=== PATIENT | female | born 1955 | race Caucasian/White ===

== ENCOUNTER 2018-12-09 18:11 | Emergency (ER) | payer BC, OTHER ==
[2018-12-09 18:23] VITALS: TEMP 98.1
[2018-12-09] MEDS ORDERED: KETOROLAC 60 MG/2 ML VIAL IM STA (19:33)
[2018-12-09] MEDS ORDERED: ORPHENADRINE 30 MG/ML 2 ML VIAL IM STA (19:33)
--- NOTE | 2018-12-09 19:37 | ED ---
General Adult HPI - General Chief complaint: Back Pain/Injury Stated complaint: R hand/arm pain Time Seen by Provider: 12/09/18 18:20 Source: patient, RN notes reviewed Mode of arrival: ambulatory Limitations: no limitations - History of Present Illness Initial comments: This is a 63-year-old female who presents emergency Department complaining of a pain in her right lower back as well as some arm pain after having been working. Patient states she does a lot of heavy lifting as well as repetitive work with her hands. Patient states her right forearm and arm are sore as well as in the trapezius muscle. Patient states movement makes it worse and resting makes it better. Patient states she has full range motion of all joints it just hurts to do so. Patient denies any blunt trauma or injury to the any of the specific areas. Patient states it's basically all the muscles from her trapezius muscle down into her wrist and back of her hand. Patient denies any swelling or redness. Patient states she's not moving her arm it doesn't hurt at all. Patient also complains of some right lower back pain and it hurts to palpate right above the iliac crest. Patient denies any injury to that area but she states she lifts heavy things all day long - Related Data Home Medications Medication Instructions Recorded Confirmed Citalopram Hydrobromide [CeleXA] 40 mg PO HS 05/17/17 12/09/18 traZODone HCL 200 mg PO HS 05/17/17 12/09/18 Atorvastatin [Lipitor] 20 mg PO HS 12/09/18 12/09/18 Fish Oil/Dha/Epa [Fish Oil 1,200 2 cap PO HS 12/09/18 12/09/18 mg Fish Oil] Meloxicam [Mobic] 15 mg PO HS 12/09/18 12/09/18 Previous Rx's Medication Instructions Recorded Cyclobenzaprine [Flexeril] 10 mg PO TID #20 tab 12/09/18 Ibuprofen [Motrin] 600 mg PO Q6HR PRN #20 tab 12/09/18 Allergies Allergy/AdvReac Type Severity Reaction Status Date / Time amoxicillin [From Augmentin] AdvReac Nausea & Verified 12/09/18 19:21 Vomiting clavulanic acid AdvReac Nausea & Verified 12/09/18 19:21 [From Augmentin] Vomiting Review of Systems ROS Statement: Those systems with pertinent positive or pertinent negative responses have been documented in the HPI. ROS Other: All systems not noted in ROS Statement are negative. Past Medical History Past Medical History: Hyperlipidemia History of Any Multi-Drug Resistant Organisms: None Reported Past Surgical History: No Surgical Hx Reported Past Psychological History: Depression Smoking Status: Current every day smoker Past Alcohol Use History: None Reported Past Drug Use History: None Reported General Exam - General Exam Comments Initial Comments: GENERAL Patient is well-developed and well-nourished. Patient is in mild distress. EYES Patient's pupils are equal and round. Extraocular motion is intact SKIN Unremarkable NEURO The patient is alert and oriented 3 PYSCH Patient has normal interpersonal interactions. MUSCULOSKELETAL Patient has tenderness in the posterior aspect of her hand as well as some slight tenderness on palpation of her forearm posteriorly and her trapezius muscle on the right. Patient also has full range of motion of all of her joints on the right side but it does hurt to move it she states. Patient also complains of some right lower back pain is just above the iliac crest and palpating that area does cause some pain there is no radiculopathy with the pain there is no spinous process tenderness in his been no blunt trauma according to the patient Limitations: no limitations Course Vital Signs 12/09/18 18:18 Temperature 98.1 F Pulse Rate 101 H Respiratory 18 Rate Blood Pressure 115/75 O2 Sat by Pulse 98 Oximetry Disposition Clinical Impression: Mechanical back pain, Wrist strain Disposition: HOME SELF-CARE Prescriptions: Cyclobenzaprine [Flexeril] 10 mg PO TID #20 tab Ibuprofen [Motrin] 600 mg PO Q6HR PRN #20 tab PRN Reason: For pain Is patient prescribed a controlled substance at d/c from ED?: No Referrals: Alaina Moreno MD [Primary Care Provider] - 1-2 days Time of Disposition: 19:36
[2018-12-09 20:06] VITALS: BP 117/83; PULSE 92; RESP 17
== END 2018-12-09 20:05 | disposition home or self-care (01) ==
LOC: EC 18:11
DX: S66.911A Strain of unspecified muscle, fascia and tendon at wrist and hand level, right hand, initial encounter (principal); M54.5 Low back pain; E78.5 Hyperlipidemia, unspecified; F32.9 Major depressive disorder, single episode, unspecified; F17.200 Nicotine dependence, unspecified, uncomplicated; Z79.899 Other long term (current) drug therapy; Z79.1 Long term (current) use of non-steroidal anti-inflammatories (NSAID); Z88.0 Allergy status to penicillin; Z88.1 Allergy status to other antibiotic agents; X58.XXXA Exposure to other specified factors, initial encounter
CPT/HCPCS: 99283; 96372 ×2; J2360; J1885

== ENCOUNTER → 2019-04-11 | Outpatient (CLI) | payer OTHER, BC | END | disposition home or self-care (01) | LOC: LABWHC1 11:44 | PROVIDERS: ATTEND Orthopaedic Surgery Orthopaedic Surgery of the Spine | DX: Z01.812 Encounter for preprocedural laboratory examination (principal) | CPT/HCPCS: 80323 ==

== ENCOUNTER → 2019-04-20 | Outpatient (CLI) | payer OTHER, BC ==
--- NOTE | 2019-04-20 10:26 | XR ---
EXAMINATION TYPE: XR chest 2V DATE OF EXAM: 04/20/2019 COMPARISON: Chest x-ray May 17, 2017. HISTORY: Presurgical study. TECHNIQUE: Frontal and lateral views of the chest are obtained. FINDINGS: There is no focal air space opacity, pleural effusion, or pneumothorax seen. The cardiac silhouette size is within normal limits. The osseous structures are intact. IMPRESSION: No acute cardiopulmonary process currently.
== END | disposition home or self-care (01) ==
LOC: LABPAT 09:39
PROVIDERS: ATTEND Internal Medicine
DX: Z01.812 Encounter for preprocedural laboratory examination (principal); M43.16 Spondylolisthesis, lumbar region; E78.2 Mixed hyperlipidemia
CPT/HCPCS: 36415; 71046; 86850; 86900; 86901; 87070

== ENCOUNTER → 2019-04-20 | Outpatient (CLI) | payer OTHER, BC ==
[2019-04-20 16:05] LABS: Chol/HDL Ratio 4.23; LDL Cholesterol,Calculated 103.4 mg/dL (0.0-131.0); VLDL Calculation 35.6 mg/dL (5.00-40.00)
== END | disposition home or self-care (01) ==
LOC: LABWHC1 10:34
DX: E78.2 Mixed hyperlipidemia (principal)
CPT/HCPCS: 36415; 80061; 84443

== ENCOUNTER 2019-04-25 13:57 | Inpatient (IN) | payer BC, OTHER ==
[~2019-04-25 13:57] MED LIST: BACITRACIN 50,000 UNIT, POLYMYXIN B 500,000 UNIT in SODIUM CHLORIDE 0.9% IRRIGATIO 1,00... IRRIGATION ONE
[2019-04-25] MEDS ORDERED: LACTATED RINGERS 1,000 ML IV ONE ×4 (15:13→17:35)
[2019-04-25] MEDS ORDERED: ONDANSETRON 4 MG/2 ML VIAL IVP ONE ×2 (15:34→19:52)
[2019-04-25] MEDS ORDERED: PROPOFOL 10 MG/ML 20 ML VIAL IV ONE (15:35)
[2019-04-25] MEDS ORDERED: NEOSTIGMINE 1 MG/ML 10 ML VIAL ONE (15:35)
[2019-04-25] MEDS ORDERED: ePHEDrine SULFATE/0.9% NACL/PF 50 MG/5 ML SYRINGE IV ONE (15:35)
[2019-04-25] MEDS ORDERED: LIDOCAINE 1% INJ 10MG/ML (20 ML MDV) ONE (15:35)
[2019-04-25] MEDS ORDERED: fentaNYL (PF) 50 MCG/ML 2 ML AMP ONE (15:35)
[2019-04-25] MEDS ORDERED: SUCCINYLCHOLINE CHLORIDE 100 MG/5 ML SYR IV ONE (15:35)
[2019-04-25] MEDS ORDERED: MIDAZOLAM 2 MG/2 ML VIAL ONE (15:35)
[2019-04-25] MEDS ORDERED: KETAMINE 10 MG/ML 20 ML VIAL ONE (15:35)
[2019-04-25] MEDS ORDERED: GLYCOPYRROLATE 0.2 MG/ML 2 ML VIAL ONE (15:35)
[2019-04-25] MEDS ORDERED: ROCURONIUM BROMIDE 10 MG/ML 10 ML VIAL IV ONE (15:35)
[2019-04-25] MEDS ORDERED: LIDOCAINE 1%-EPI 1:100,000 20 ML VIAL SQ ONE ×2 (16:28)
[2019-04-25] MEDS ORDERED: THROMBIN (BOVINE) 5,000 UNIT VIAL TOPICAL ONE (16:28)
[2019-04-25] MEDS ORDERED: BUPIVACAINE (PF) 0.5% 30 ML VIAL SQ ONE ×2 (16:30)
[2019-04-25] MEDS ORDERED: GELATIN SPONGE,ABSORB (SMALL) 1 EACH SPONGE TOPICAL ONE (16:31)
[2019-04-25] MEDS ORDERED: BENZOCAINE/MENTHOL LOZENG 1 EACH LOZENGE MUCOUS MEM PRN (18:52)
[2019-04-25] MEDS ORDERED: HYDROcodone/APAP 5-325MG 1 EACH TAB PO PRN (18:52)
[2019-04-25] MEDS ORDERED: ONDANSETRON 4 MG/2 ML VIAL IVP PRN (18:52)
[2019-04-25] MEDS ORDERED: MAGNESIUM HYDROXIDE 2,400 MG/10 ML CUP PO PRN (18:52)
--- NOTE | 2019-04-25 19:01 | P.OP ---
Date of Procedure: 04/25/19 Preoperative Diagnosis: Spondylolisthesis L4 5, spinal stenosis L4 5, degenerative disc disease, lower extremity radiculopathy, low back pain, facet arthrosis Postoperative Diagnosis: Same Anesthesia: GETA Pathology: none sent Condition: stable Disposition: PACU Description of Procedure: DESCRIPTION OF PROCEDURE(S): BRIEF OPERATIVE NOTE Preoperative Diagnosis: Spondylolisthesis L4 5, spinal stenosis L4 5, degenerative disc disease, lower extremity radiculopathy, low back pain, facet arthrosis Postoperative Diagnosis:Spondylolisthesis L4 5, spinal stenosis L4 5, degenerative disc disease, lower extremity radiculopathy, low back pain, facet arthrosis Procedure: Laminectomy and decompression L4 5 Minimally invasive Posterior lateral decompression and facet fusion L4 5 Minimally invasive Transforaminal lumbar interbody fusion for a 360 fusion L4 5 Discectomy for decompression L4 5 Placement of interbody graft L4 5 Local autogenous bone grafting Harvesting of bone marrow aspirate the of the pedicle of L4 on the left Use of Cell Saver Use of bone graft extenders Surgeon: Dr. Wynn Imcu Specialist: Jose G Medina is present throughout the entire the case persistence during positioning, dissection, exposure, visualization, and all crucial elements of the case as well as closure. Anesthesia: General anesthesia per Dr. Servin Estimated blood loss: Approximately 200 mL Complications: None apparent Components implanted: K2M minimally invasive [place] pedicle screw system with 4 screws measuring 6.5 x 50 mm and 2 rods one [place] interbody cage measuring 8 mm with 10 mL of bio4 bone graft as well as 30 mL of DBX bone fibers to supplement the local autogenous bone graft as well as the bone marrow aspirate Disposition: To recovery room in good stable condition. OPERATIVE INDICATIONS The patient has had long-standing issues in their lower back and lower extremities. She is found have a dynamic spondylolisthesis at L4 5 as well as foraminal stenosis with disc degeneration. These issues correlate very well with her low back and lower extremity symptoms in her lower extremity radiculopathy. She is having worsening pain despite aggressive conservative care and was not having any prolonged benefit despite aggressive conservative management. The patient has been through conservative treatment. She was able to stop smoking in order to proceed with the surgery and had testing which show she was no longer actively smoking. We discussed various treatment options including surgery, and the patient wishes to proceed with surgery We discussed the risk, patient's alternatives and benefits of surgery including but not limited to, risk of bleeding risk of infection, risk of need for further surgery, risk of decreased, loss of motion, muscle function, malunion nonunion, hardware failure, nerve damage, paralysis, heart attack, blindness and . OPERATIVE SUMMARY After discussing all the risks, patient alternatives and benefits at length, the patient elected to proceed with surgical intervention, signed informed consent, and presented for their procedure. The patient was seen and examined in the preoperative holding area and the surgical site was marked. The patient was given antibiotics and brought to the operating room. The patient was sedated and intubated by anesthesia in standard fashion. The patient was positioned on to the operating room table in a prone position on the appropriate frame which was well-padded and well molded. We were careful to pad any bony prominences and pressure points. We were careful to maintain the patient's cervical spine and good neutral alignment and position throughout. The patient was prepped and draped in a normal standard fashion. An appropriate timeout and keystone protocol performed. We were able to proceed with the surgery. The local wound area was infiltrated with local anesthetic at L4 and L5. I was able utilize C-arm guidance to establish appropriate position over the pedicles bilaterally at the appropriate levels at L4 5. With the appropriate levels confirmed was able to make small stab incisions over the appropriate pedicle sites bilaterally. Utilizing C-arm in his house able to establish a Jamshidi needle over the lateral aspect of the pedicle and advanced the trocar into the pedicle being careful not to breech superiorly inferiorly medially or laterally. Position was confirmed regularly with AP and lateral images on C- arm. I was able to establish the trocar into the pedicle appropriately into the posterior aspect of the vertebral body bilaterally at the appropriate levels of L4 and L5. This was done at each of the pedicle positions and each of the vertebrae. At L3 4 on the left I was able to withdraw approximately 25 mL of bone marrow aspirate via the trocar for later use in supplement of the local autogenous and allograft bone. I was able place the guidewire into the trocar and into the vertebral body appropriately under C-arm guidance. Dissection was taken down over the wire to the appropriate starting position for the screw placed. The appropriate length screw was chosen, threaded over the guidewire and screwed appropriately into the pedicle and vertebral body under C-arm guidance in excellent alignment and position with good bony purchase. This is done at each of the screw sites at the appropriate levels at L4 and L5. With the screws intact I extended the incision to connect the screw hole sites on the most symptomatic side on the left. I dissected down to establish access over the pars and lamina to the base of the spinous process. I was able to expose the facet joint at L4 5. The capsule the facet was taken down and showed some severe facet arthrosis at the joint. I was able to use a combination of curettes and Kerrison rongeurs and a high-speed drill to take down the facet joint and do a facetectomy. Partial laminectomy was also performed. I was able get excellent foraminal decompression and central decompression with undermining across midline to perform a laminectomy centrally and contralaterally. As able get good central decompression. The ligamentum flavum was taken down to further decompress centrally and at bilateral neural foramen. I was able to expose the disc space and visualize the traversing nerve root. Note was made of some disc protrusion at the level causing further compression of the nerve root. I was able to establish a annulotomy at the appropriate level protecting soft tissue and neural structures. Note was made of some significant disc desiccation at the disc. I performed a complete discectomy with accommodation of curettes and rasps and scrapers. I was able get good endplate preparation at the disc space. I sized for the appropriate size interbody spacer protecting the soft tissue and neural structures. The wound was copiously irrigated and suctioned dry. There is no evidence of any dural tear or leak. I was able to pack the disc space with local autogenous bone graft as well as a small amount of bone graft which was also placed into the interbody cage itself. Protecting the soft tissue structures and neural structures I was able place the interbody cage in good alignment and good position with good fit and fill at the interbody space of L4 5. I was also able to achieve some reduction of the listhesis. This was confirmed with C-arm guidance. Good hemostasis maintained. There is no evidence of any dural tear or leak. The wound was irrigated and suctioned dry. With the hardware intact, intraoperative C-arm imaging was again taken which showed good alignment and position of the hardware at the appropriate levels of L4 and L5. We were then able to measure, contour and place the rods and appropriate hardware bilaterally. I was able to place capcrews, tighten them down, and torque them with the torque screwdriver appropriately and this gave further reduction of the listhesis.. With this intact I was able to place the local autogenous bone graft with additional bone graft enhancer as necessary into the posterior lateral gutters over the decorticated transverse processes. The remainder of the bone graft was placed over the facet joint on the cont ralateral side after taking down the facet joint capsule. With the bone graft intact, a stable construct, and good decompression at the appropriate levels, we were able to proceed with closure. Good hemostasis was maintained. There is no evidence of dural tear or leak. The fascia was closed for a watertight closure. he subcuticular tissue was closed with absorbable suture. The wound was cleaned and dried and dressed with the appropriate dressing. The drapes were broken down. The patient was gently rolled back onto their hospital bed being careful to maintain their cervical spine and good neutral alignment and position. They were woken up by anesthesia, extubated, and brought to the recovery room in good stable condition. The patient will be admitted to the hospital for appropriate postoperative care, medical management and monitoring. We will continue to follow them closely about the postoperative course.
[2019-04-25] MEDS ORDERED: HYDROmorphone 1 MG/ML 1 ML SYRINGE IVP ONE ×3 (19:15→19:45)
[2019-04-25] MEDS ORDERED: LABETALOL SYRINGE 5 MG/ML IVP ONE (19:33)
[2019-04-25] MEDS: SODIUM CHLORIDE 0.9% 1,000 ML IV SCH (21:20)
[2019-04-25] MEDS: HYDROmorphone 0.5 MG/0.5 ML SYRINGE IVP PRN (21:21)
[2019-04-25] MEDS ORDERED: SODIUM CHLORIDE 0.9% 1,000 ML IV ONE ×2 (22:46→22:47)
[2019-04-25] MEDS ORDERED: FUROSEMIDE 10 MG/ML 2 ML VIAL IV PRN (22:47)
[2019-04-25] MEDS: CITALOPRAM HYDROBROMIDE 20 MG TAB PO SCH (22:53)
[2019-04-25] MEDS: ATORVASTATIN 20 MG TAB PO SCH (22:54)
[2019-04-25] MEDS ORDERED: HYDROcodone/APAP 5-325MG 1 EACH TAB ONE (23:51)
[2019-04-26] MEDS ORDERED: HYDROcodone/APAP 5-325MG 1 EACH TAB ONE (00:20)
[2019-04-26] MEDS ORDERED: HYDROmorphone 0.5 MG/0.5 ML SYRINGE ONE (00:20)
--- NOTE | 2019-04-26 05:01 | XR ---
EXAMINATION TYPE: XR lumbar spine 2 or 3V, FL guidance operating room DATE OF EXAM: 04/25/2019 COMPARISON: NONE HISTORY: 63-year-old female minimally invasive lumbar spine intervention FINDINGS: Intraprocedural fluoroscopy during lower lumbar posterior interbody fusion hardware placement. FLUOROSCOPY Fluoroscopy time of 1 minute 24 seconds was used during the lumbar surgery. 6 image/s document/s the procedure. IMPRESSION: Intraoperative fluoroscopy as above.
[2019-04-26] MEDS: HYDROmorphone 0.5 MG/0.5 ML SYRINGE IVP PRN (06:30)
[2019-04-26] MEDS: SENNOSIDES-DOCUSATE SODIUM 1 EACH TAB PO SCH (07:58)
[2019-04-26] MEDS: HYDROcodone/APAP 5-325MG 1 EACH TAB PO PRN ×4 (07:59→22:18)
[2019-04-26] MEDS: SODIUM CHLORIDE 0.9% 1,000 ML IV SCH (08:01)
--- NOTE | 2019-04-26 08:55 | P.PN ---
Progress Note - Text Progress Note Date: 04/26/19 Orthopedic Spine: History of present illness: Patient is a pleasant 63-year-old female who is seen and examined at the bedside following posterior lateral decompression and fusion performed yesterday. Patient states they are doing okay postsurgically but is experiencing significant pain postoperatively. Her pain is most significant at her lumbar spine with any movement of her spine. She also is experiencing increased numbness down the right lower extremity. Her Licona catheter remains intact. She was able to transfer to a bedside chair yesterday. She is eating without difficulty. She continues to require regular dosing of IV and oral narcotic pain medication. She did receive an IV bolus of fluid yesterday due to drop in blood pressure with a reading of 82/52. Her blood pressures improved this morning 210/62. Currently does not complain of nausea, vomiting, fever, or chills. Physical Exam Lumbar Fusion: Status post surgical day number 1 Patient is awake, alert, and oriented 3 Vital signs stable Good chest excursion with deep inspiration and expiration Abdomen soft nontender Dorsiflexion, plantarflexion, and extensor hallucis longus positive sustained bilaterally No signs or symptoms of DVT; no calf pain; pneumatic cuffs intact bilateral lower extremities Dressing is clean, dry, and intact; no erythema, purulence, or signs of infection Hemovac drain well secure Neurovascularly intact bilaterally lower extremities Assessment: L4-5 minimally invasive posterior lateral decompression and fusion with transforaminal lumbar interbody fusion Low back pain Right lower extremity radiculopathy Episode of hypotension resolved with IV fluid bolus L4-5 spondylolisthesis L4-5 degenerative disc disease Lumbar facet arthrosis Plan: 1. Ambulate as tolerated; work with Physical Therapy to increase mobilization 2. Continue pain control with IV and oral medications; we discussed patient may continue to receive IV and oral narcotic pain medications for pain control as long as her blood pressure remains stable and she does not become hypotensive 3. Dressing to remain intact with silver and Tegaderm; patient may shower with dressings intact 4. Medical management can continue to manage patient for patient's other medical issues 5. We will continue to follow the patient closely 6. Patient can follow-up with Jose G Pate PA-C or Dr. Juan Wynn at [facility] in 2-3 weeks following discharge
[2019-04-26 10:28] LABS: Basophils % (A) 0 %; Eosinophils # (A) 0.1 k/uL (0-0.7); Eosinophils % (A) 1 %; HGB 10.6 gm/dL (11.4-16.0); Lymphocytes # (A) 1.1 k/uL (1.0-4.8); Lymphocytes % (A) 12 %; MCH 30.7 pg (25.0-35.0); MCHC 33.1 g/dL (31.0-37.0); MCV 92.6 fL (80.0-100.0); Mean Platelet Volume 5.7; Monocytes # (A) 0.7 k/uL (0-1.0); Monocytes % (A) 7 %; Neutrophils # (A) 6.8 k/uL (1.3-7.7); Neutrophils % (A) 78 %; Platelet Count 306 k/uL (150-450); RBC 3.46 m/uL (3.80-5.40); RDW 12.8 % (11.5-15.5); WBC 8.8 k/uL (3.8-10.6)
[2019-04-26] MEDS: HYDROmorphone 1 MG/ML 1 ML SYRINGE IVP PRN (10:37)
[2019-04-26 10:40] LABS: Calcium 8.4 mg/dL (8.4-10.2); Potassium 4.3 mmol/L (3.5-5.1)
[2019-04-26] MEDS: MORPHINE SULFATE 2 MG/ML SYRINGE IVP PRN ×2 (12:54→16:45)
--- NOTE | 2019-04-26 13:26 | P.CONS ---
History of Present Illness - Reason for Consult Consult date: 04/26/19 Medical management - History of Present Illness This is a 63-year-old female patient of Cb Marshall NP with past medical history of hyperlipidemia, depression, prior tobacco use and dependence. Patient was brought into the hospital under the care of Dr. Wynn status post posterior lateral decompression and fusion. Patient is seen postop day #1. Patient states that she did not sleep all night due to pain in her back. She is complaining of pain in her lumbar spine and down her right leg as well as numbness to her right leg. She states she has been up to the chair last night and again today. She denies having any chest pain. She states she has had some dizziness with Dilaudid. She has not had a bowel movement and last one was 2 days ago. The patient did have some hypotension for which she was given 1 L of IV fluids. Blood pressure is improved today. She denies nausea, vomiting, fever, or chills. We will try starting morphine to be used in place of Dilaudid to see if this helps with her dizziness. Review of Systems Constitutional: Reports weakness, Denies anorexia, Denies chills, Denies chronic headaches, Denies fatigue, Denies fever, Denies lethargy, Denies malaise, Denies poor appetite Eyes: denies blurred vision, denies pain Ears, nose, mouth and throat: Denies dysphagia, Denies headache, Denies nasal congestion, Denies nasal discharge, Denies sore throat, Denies vertigo Cardiovascular: Denies chest pain, Denies decreased exercise tolerance, Denies dyspnea on exertion, Denies edema, Denies leg edema, Denies palpitations, Denies shortness of breath, Denies syncope Respiratory: Denies cough, Denies cough with sputum, Denies dyspnea, Denies he moptysis, Denies home oxygen, Denies respiratory infections, Denies wheezing Gastrointestinal: Denies abdominal pain, Denies constipation, Denies diarrhea, Denies loss of appetite, Denies nausea, Denies vomiting Genitourinary: Denies dysuria, Denies hematuria, Denies urgency, Denies urinary frequency Musculoskeletal: Reports gait dysfunction, Reports leg numbness/tingling, Reports low back pain, Denies frequent falls, Denies muscle weakness, Denies myalgias Integumentary: Denies pruritus, Denies rash Neurological: Reports gait dysfunction, Denies numbness, Denies weakness Psychiatric: Denies anxiety, Denies depression Endocrine: Denies fatigue, Denies weight change Past Medical History Past Medical History: Hyperlipidemia History of Any Multi-Drug Resistant Organisms: None Reported Past Surgical History: No Surgical Hx Reported Additional Past Surgical History / Comment(s): L4-L5 decompression this admission Past Anesthesia/Blood Transfusion Reactions: No Reported Reaction Past Psychological History: Depression Smoking Status: Former smoker Past Alcohol Use History: None Reported Additional Past Alcohol Use History / Comment(s): quit smoking a month ago, was a 1 pack per day smoker. Patient smoked for 45 years. No illicit drug use, no alcohol use. Past Drug Use History: None Reported - Past Family History Mother Family Medical History: Myocardial Infarction ([place]) Additional Family Medical History / Comment(s): Mother at age 78 with history of pneumonia, 3 vessel CABG. Father Additional Family Medical History / Comment(s): Father at age 83. Vital history is unknown as he never went to the doctor. Brother(s) Additional Family Medical History / Comment(s): Patient has 2 brothers and one has known spinal stenosis. Patient has 2 sisters and one has Crohn's and one has Edvin-Vieira. Patient has one daughter with Crohn's disease. Medications and Allergies Home Medications Medication Instructions Recorded Confirmed Type Citalopram Hydrobromide [CeleXA] 60 mg PO HS 05/17/17 04/25/19 History traZODone HCL 200 mg PO HS 05/17/17 04/25/19 History Atorvastatin [Lipitor] 20 mg PO HS 12/09/18 04/25/19 History Fish Oil/Dha/Epa [Fish Oil 1,200 2 cap PO HS 12/09/18 04/25/19 History mg Fish Oil] Ibuprofen [Motrin] 600 mg PO Q6HR PRN #20 tab 12/09/18 04/25/19 Rx Allergies Allergy/AdvReac Type Severity Reaction Status Date / Time amoxicillin [From Augmentin] AdvReac Nausea & Verified 12/09/18 19:21 Vomiting clavulanic acid AdvReac Nausea & Verified 12/09/18 19:21 [From Augmentin] Vomiting Physical Exam Vitals: Vital Signs Temp Pulse Pulse Pulse Resp BP BP 04/26/19 06:25 91 110/62 04/26/19 05:50 98.3 F 88 16 99/54 04/25/19 22:40 82/52 04/25/19 22:26 101 H 129/68 04/25/19 22:10 88 92/56 04/25/19 21:47 100 117/72 04/25/19 21:42 96/62 04/25/19 21:32 96 117/62 04/25/19 21:17 94 119/72 04/25/19 21:16 04/25/19 20:34 97.8 F 16 119/72 04/25/19 20:33 100 14 117/62 04/25/19 20:18 97 14 119/72 04/25/19 19:59 88 18 138/68 04/25/19 19:35 89 16 141/69 04/25/19 19:20 111 H 16 170/77 04/25/19 19:07 97.7 F 124 H 18 167/87 04/25/19 14:35 98.6 F 90 16 137/88 Pulse Ox 04/26/19 06:25 94 L 04/26/19 05:50 93 L 04/25/19 22:40 04/25/19 22:26 90 L 04/25/19 22:10 92 L 04/25/19 21:47 90 L 04/25/19 21:42 94 L 04/25/19 21:32 94 L 04/25/19 21:17 96 04/25/19 21:16 96 04/25/19 20:34 99 04/25/19 20:33 92 L 04/25/19 20:18 90 L 04/25/19 19:59 97 04/25/19 19:35 98 04/25/19 19:20 96 04/25/19 19:07 95 04/25/19 14:35 95 Intake and Output 04/25/19 04/26/19 04/26/19 22:59 06:59 14:59 Intake Total 4101 50 Output Total 790 Balance 3311 50 Intake: IV 2501 Intake, IV Titration 1600 50 Amount Sodium Chloride 0.9% 1, 600 000 ml @ 75 mls/hr IV . [id number] [facility] Rx#:[id number] Sodium Chloride 0.9% 1, 1000 000 ml @ 999 mls/hr IV . Q1H1M [facility] Rx#:[id number] ceFAZolin 2 gm In Sodium 50 Chloride 0.9% 50 ml @ 100 mls/hr IVPB Q8HR [facility] Rx# :[id number] Output: Urine 590 Estimated Blood Loss 200 Other: Voiding Method Indwelling Catheter Weight 78.018 kg Gen: This is a 63-year-old female. Patient is sitting up and chair and appears to be somewhat uncomfortable. She has increased pain with minimal movement. HEENT: Head is atraumatic, normocephalic. Pupils equal, round. Sclerae is anicteric. NECK: Supple. No JVD. No lymphadenopathy. No thyromegaly. LUNGS: Clear to auscultation. No wheezes or rhonchi. No intercostal retractions. HEART: Regular rate and rhythm. No murmur. ABDOMEN: Soft. Bowel sounds are present. No masses. No tenderness. EXTREMITIES: No pedal edema. No calf tenderness. NEUROLOGICAL: Patient is awake, alert and oriented x3. Cranial nerves 2 through 12 are grossly intact. Results CBC & Chem 7: 04/26/19 09:29 04/26/19 09:29 Labs: Abnormal Lab Results - Last 24 Hours (Table) 04/26/19 04/26/19 Range/Units 09:29 09:29 RBC 3.46 L (3.80-5.40) m/uL Hgb 10.6 L (11.4-16.0) gm/dL Hct 32.0 L (34.0-46.0) % Glucose 71 L (74-99) mg/dL Microbiology - Last 24 Hours (Table) 04/20/19 09:55 Nasal Screen MRSA/MSSA - Final Nasal Swab Assessment and Plan Plan: 1. Spinal stenosis status post posterior lateral decompression and fusion. Postop day #1. Continue current pain management and we will add in morphine to see if this will help with pain and not cause dizziness which she is experiencing with Dilaudid. Continue incentive spirometry to reduce incidence of atelectasis and hospital-acquired pneumonia. Continue PT and OT. DVT prophylaxis per orthopedics. 2. Postoperative hypotension, expected from surgery. Patient is status post 1 L of IV fluid bolus. 3. Tobacco use and dependence. Patient quit smoking 36 days ago on Chantix program. 4. Depression, recurrent. Continue citalopram 60 mg at bedtime, trazodone 200 mg at bedtime. 5. Hyperlipidemia. Continue Lipitor 20 mg at bedtime. 6. GI prophylaxis. Pepcid. Discharge plan: home Impression and plan of care have been directed as dictated by the signing physician. An Mendez nurse practitioner acting as scribe for signing physician.
[2019-04-26] MEDS ORDERED: ACETAMINOPHEN TAB 325 MG TAB PO PRN (16:44)
[2019-04-26] MEDS: ATORVASTATIN 20 MG TAB PO SCH (21:11)
[2019-04-26] MEDS: CITALOPRAM HYDROBROMIDE 20 MG TAB PO SCH (21:11)
[2019-04-27] MEDS: traZODone HCL 100 MG TAB PO SCH (00:24)
[2019-04-27] MEDS ORDERED: DIAZEPAM 5 MG TAB PO STA (01:16)
[2019-04-27] MEDS: SODIUM CHLORIDE 0.9% 1,000 ML IV SCH ×2 (01:51→13:23)
[2019-04-27] MEDS: HYDROcodone/APAP 5-325MG 1 EACH TAB PO PRN ×5 (05:33→23:26)
[2019-04-27] MEDS: SENNOSIDES-DOCUSATE SODIUM 1 EACH TAB PO SCH (09:10)
[2019-04-27] MEDS: FAMOTIDINE 20 MG TAB PO SCH (09:10)
[2019-04-27] MEDS: HYDROmorphone 1 MG/ML 1 ML SYRINGE IVP PRN ×2 (12:55→23:51)
[2019-04-27] MEDS: BACLOFEN 10 MG TAB PO PRN ×2 (13:23→21:31)
--- NOTE | 2019-04-27 14:14 | P.PN ---
Subjective Progress Note Date: 04/27/19 This is a 63-year-old female patient of Cb Marshall NP with past medical history of hyperlipidemia, depression, prior tobacco use and dependence. Patient was brought into the hospital under the care of Dr. Wynn status post posterior lateral decompression and fusion. Patient is seen postop day #1. Jerome ferrari states that she did not sleep all night due to pain in her back. She is complaining of pain in her lumbar spine and down her right leg as well as numbness to her right leg. She states she has been up to the chair last night and again today. She denies having any chest pain. She states she has had some dizziness with Dilaudid. She has not had a bowel movement and last one was 2 days ago. The patient did have some hypotension for which she was given 1 L of IV fluids. Blood pressure is improved today. She denies nausea, vomiting, fever, or chills. We will try starting morphine to be used in place of Dilaudid to see if this helps with her dizziness. 04/27: Patient is sleeping this morning and pulse ox was checked and it was down to 80. Patient denies any history of sleep apnea but has not been tested. Suggested to patient that she does have a sleep study as an outpatient. We'll plan to discontinue IV fluids and Licona catheter if patient does well with physical therapy this afternoon. She is complaining of back spasms and she did receive 1 dose of Valium last evening that seemed to help. We will add and baclofen 5 mg 3 times daily as needed to help. Discharge plan is home. Review of Systems Constitutional: Reports weakness, Denies anorexia, Denies chills, Denies chronic headaches, Denies fatigue, Denies fever, Denies lethargy, Denies malaise, Denies poor appetite Eyes: denies blurred vision, denies pain Ears, nose, mouth and throat: Denies dysphagia, Denies headache, Denies nasal congestion, Denies nasal discharge, Denies sore throat, Denies vertigo Cardiovascular: Denies chest pain, Denies decreased exercise tolerance, Denies dyspnea on exertion, Denies edema, Denies leg edema, Denies palpitations, Denies shortness of breath, Denies syncope Respiratory: Denies cough, Denies cough with sputum, Denies dyspnea, Denies hemoptysis, Denies home oxygen, Denies respiratory infections, Denies wheezing Gastrointestinal: Denies abdominal pain, Denies constipation, Denies diarrhea, Denies loss of appetite, Denies nausea, Denies vomiting Genitourinary: Denies dysuria, Denies hematuria, Denies urgency, Denies urinary frequency Musculoskeletal: Reports gait dysfunction, Reports leg numbness/tingling, Reports low back pain, Denies frequent falls, Denies muscle weakness, Denies myalgias, reports muscle spasms Integumentary: Denies pruritus, Denies rash Neurological: Reports gait dysfunction, Denies numbness, Denies weakness Psychiatric: Denies anxiety, Denies depression Endocrine: Denies fatigue, Denies weight change Objective - Vital Signs Vital signs: Vital Signs Temp 98.1 F 04/27/19 11:18 Pulse 83 04/27/19 11:18 Resp 15 04/27/19 11:18 BP 99/54 04/27/19 11:18 Pulse Ox 94 L 04/27/19 11:18 Intake & Output 04/26/19 04/27/19 04/27/19 18:59 06:59 18:59 Intake Total 700 1180 Output Total 4000 Balance 700 -2820 Intake: Intake, IV Titration 700 Amount Sodium Chloride 0.9% 1, 650 000 ml @ 75 mls/hr IV . [id number] [facility] Rx#:[id number] ceFAZolin 2 gm In Sodium 50 Chloride 0.9% 50 ml @ 100 mls/hr IVPB Q8HR [facility] Rx# :[id number] Oral 1180 Output: Urine 4000 Uretheral (Licona) 1300 Other: Voiding Method Indwelling Catheter Indwelling Catheter Indwelling Catheter - Exam Gen: This is a 63-year-old female. Patient is sitting up and chair and appears to be somewhat uncomfortable. HEENT: Head is atraumatic, normocephalic. Pupils equal, round. Sclerae is anicteric. NECK: Supple. No JVD. No lymphadenopathy. No thyromegaly. LUNGS: Clear to auscultation. No wheezes or rhonchi. No intercostal retractions. HEART: Regular rate and rhythm. No murmur. ABDOMEN: Soft. Bowel sounds are present. No masses. No tenderness. EXTREMITIES: No pedal edema. No calf tenderness. NEUROLOGICAL: Patient is awake, alert and oriented x3. Cranial nerves 2 through 12 are grossly intact. - Labs CBC & Chem 7: 04/26/19 09:29 04/26/19 09:29 Assessment and Plan Plan: 1. Spinal stenosis status post posterior lateral decompression and fusion. Postop day #2. Continue current pain management and we will add in morphine to see if this will help with pain and not cause dizziness which she is experiencing with Dilaudid. Continue incentive spirometry to reduce incidence of atelectasis and hospital-acquired pneumonia. Continue PT and OT. DVT prophylaxis per orthopedics. Baclofen added for back spasms. 2. Postoperative hypotension, expected from surgery. Patient is status post 1 L of IV fluid bolus. 3. Tobacco use and dependence. Patient quit smoking 36 days ago on Chantix program. 4. Depression, recurrent. Continue citalopram 60 mg at bedtime, trazodone 200 mg at bedtime. 5. Hyperlipidemia. Continue Lipitor 20 mg at bedtime. 6. GI prophylaxis. Pepcid. Discharge plan: home Impression and plan of care have been directed as dictated by the signing physician. An Mendez nurse practitioner acting as scribe for signing physician.
--- NOTE | 2019-04-27 14:46 | P.PN ---
Progress Note - Text Progress Note Date: 04/27/19 Postoperative day #2 Patient is seen and examined today at bedside. The patient has some pain around the surgical site as expected. Pain is being controlled with medication. Overnight patient had significant discomfort and spasm but it is relieving significantly today. She says she is passing gas appropriately. She has been able to get up and walk around her room with a walker with very short distances. She has been taking some IV medications earlier today but has been able to convert primarily to orals at this point. She is tolerating her diet appropriately. Physical Exam Afebrile with stable vital signs Abdomen is soft nontender. Chest has good excursion deep and space expiration The incision site is clean dry and intact. No erythema there is no purulence. Extremities have not had neurologic change from prior to surgery. She has sustained resection plantarflexion and EHL Calves and thighs were soft nontender without evidence of DVT. Her Licona catheter still intact Assessment/Plan Postoperative day #2 status post minimally invasive decompression and fusion for her spinal listhesis with spinal stenosis Patient is progressing as expected from the surgery. She had some debility with spasms last night but is improving. We will discontinue her Licona catheter today. We will continue to increase the patient's mobilization with therapy. She has been making better progress today and is more mobile and her pain is well controlled. It is likely that she'll be able to be discharged home tomorrow as long as her pain was controlled appropriately with oral medications and she is voiding freely. We will continue pain control with oral or IV medications. We'll continue to follow patient closely.
[2019-04-27] MEDS: CITALOPRAM HYDROBROMIDE 20 MG TAB PO SCH (21:31)
[2019-04-27] MEDS: ATORVASTATIN 20 MG TAB PO SCH (21:31)
[2019-04-28] MEDS: traZODone HCL 100 MG TAB PO SCH ×2 (03:55→20:49)
[2019-04-28] MEDS: SODIUM CHLORIDE 0.9% 1,000 ML IV SCH ×2 (03:56→14:35)
[2019-04-28] MEDS: HYDROcodone/APAP 5-325MG 1 EACH TAB PO PRN ×5 (04:14→20:49)
[2019-04-28] MEDS: BACLOFEN 10 MG TAB PO PRN ×2 (05:24→15:22)
[2019-04-28] MEDS: SENNOSIDES-DOCUSATE SODIUM 1 EACH TAB PO SCH (08:44)
[2019-04-28] MEDS: FAMOTIDINE 20 MG TAB PO SCH (08:44)
--- NOTE | 2019-04-28 10:50 | P.PN ---
Subjective Progress Note Date: 04/28/19 Principal diagnosis: Status post minimally invasive PLDF L4-5 and TLIF L4-5 This is a 63 year-old female post minimally invasive PLDF L4-5 and TLIF L4-5. This is post-op day 3. The patient was evaluated at the bedside today. The patient denies nausea, vomiting, abdominal pain, shortness of breath, and chest pain this morning. She states her pain is controlled at this time. The patient has been up with physical therapy and ambulating in the hallway. Objective - Vital Signs Vital signs: Vital Signs Temp 99.1 F 04/28/19 05:00 Pulse 83 04/28/19 05:00 Resp 16 04/28/19 05:00 BP 105/64 04/28/19 05:00 Pulse Ox 94 L 04/28/19 05:00 Intake & Output 04/27/19 04/28/19 04/28/19 18:59 06:59 18:59 Intake Total 1470 Output Total 500 Balance -500 1470 Intake: Oral 1470 Output: Urine 500 Uretheral (Licona) 500 Other: Voiding Method Toilet Toilet # Voids 2 - Exam The patient is a 63-year-old female who is in no acute distress. She is alert and oriented 3. Abdomen is soft and nontender. Chest has good excursion with deep inspiration. Incision site is clean dry and intact. No erythema or purulent drainage. Extremities has not had neurological change from prior to surgery. She has sustained dorsiflexion and plantar flexion and EHL function. She has good foot and ankle motion. Bilateral calves are soft and nontender. Neurological and circulatory status is intact. - Labs CBC & Chem 7: 04/26/19 09:29 04/26/19 09:29 Assessment and Plan (1) Radiculopathy Current Visit: Yes Status: Acute Code(s): M54.10 - RADICULOPATHY, SITE UNSPECIFIED SNOMED Code(s): 56917466 (2) Spinal stenosis Current Visit: Yes Status: Acute Code(s): M48.00 - SPINAL STENOSIS, SITE UNSPECIFIED SNOMED Code(s): 95768822 Plan: 1. Continue pain control 2. SCDs for DVT prophylaxis 3. Continue physical therapy and ambulation 4. Anticipate discharge home either later today or tomorrow.
--- NOTE | 2019-04-28 11:16 | P.PN ---
Subjective Progress Note Date: 04/28/19 This is a 63-year-old female patient of Cb Marshall NP with past medical history of hyperlipidemia, depression, prior tobacco use and dependence. Patient was brought into the hospital under the care of Dr. Wynn status post posterior lateral decompression and fusion. Patient is seen postop day #1. Cuca burch states that she did not sleep all night due to pain in her back. She is complaining of pain in her lumbar spine and down her right leg as well as numbness to her right leg. She states she has been up to the chair last night and again today. She denies having any chest pain. She states she has had some dizziness with Dilaudid. She has not had a bowel movement and last one was 2 days ago. The patient did have some hypotension for which she was given 1 L of IV fluids. Blood pressure is improved today. She denies nausea, vomiting, fever, or chills. We will try starting morphine to be used in place of Dilaudid to see if this helps with her dizziness. 04/27: Patient is sleeping this morning and pulse ox was checked and it was down to 80. Patient denies any history of sleep apnea but has not been tested. Suggested to patient that she does have a sleep study as an outpatient. We'll plan to discontinue IV fluids and Licona catheter if patient does well with physical therapy this afternoon. She is complaining of back spasms and she did receive 1 dose of Valium last evening that seemed to help. We will add and baclofen 5 mg 3 times daily as needed to help. Discharge plan is home. 04/28: Patient is sitting up in bed without any complaints. Patient is concerned about going home and being able to manage her activities of daily living specifically using the bathroom. Patient has not had a bowel movement since surgery. She states that she is having some gas and has been ambulatory. Patient states that her pain has been manageable. Back spasms have improved. Patient states that the baclofen has significantly helped. Review of Systems Constitutional: Reports weakness, Denies anorexia, Denies chills, Denies chronic headaches, Denies fatigue, Denies fever, Denies lethargy, Denies malaise, Denies poor appetite Eyes: denies blurred vision, denies pain Ears, nose, mouth and throat: Denies dysphagia, Denies headache, Denies nasal congestion, Denies nasal discharge, Denies sore throat, Denies vertigo Cardiovascular: Denies chest pain, Denies decreased exercise tolerance, Denies dyspnea on exertion, Denies edema, Denies leg edema, Denies palpitations, Denies shortness of breath, Denies syncope Respiratory: Denies cough, Denies cough with sputum, Denies dyspnea, Denies hemoptysis, Denies home oxygen, Denies respiratory infections, Denies wheezing Gastrointestinal: Denies abdominal pain, Denies constipation, Denies diarrhea, Denies loss of appetite, Denies nausea, Denies vomiting Genitourinary: Denies dysuria, Denies hematuria, Denies urgency, Denies urinary frequency Musculoskeletal: Reports gait dysfunction, Reports leg numbness/tingling, Reports low back pain, Denies frequent falls, Denies muscle weakness, Denies myalgias, reports muscle spasms Integumentary: Denies pruritus, Denies rash Neurological: Reports gait dysfunction, Denies numbness, Denies weakness Psychiatric: Denies anxiety, Denies depression Endocrine: Denies fatigue, Denies weight change Objective - Vital Signs Vital signs: Vital Signs Temp 99.1 F 04/28/19 05:00 Pulse 83 04/28/19 05:00 Resp 16 04/28/19 05:00 BP 105/64 04/28/19 05:00 Pulse Ox 94 L 04/28/19 05:00 Intake & Output 04/27/19 04/28/19 04/28/19 18:59 06:59 18:59 Intake Total 1470 Output Total 500 Balance -500 1470 Intake: Oral 1470 Output: Urine 500 Uretheral (Licona) 500 Other: Voiding Method Toilet Toilet # Voids 2 - Exam Gen: This is a 63-year-old female. Patient is sitting up in bed and appears comfortable, no acute distress HEENT: Head is atraumatic, normocephalic. Pupils equal, round. Sclerae is anic teric. NECK: Supple. No JVD. No lymphadenopathy. No thyromegaly. LUNGS: Clear to auscultation. No wheezes or rhonchi. No intercostal retractions. HEART: Regular rate and rhythm. No murmur. ABDOMEN: Soft. Bowel sounds are present. No masses. No tenderness. EXTREMITIES: No pedal edema. No calf tenderness. NEUROLOGICAL: Patient is awake, alert and oriented x3. Cranial nerves 2 through 12 are grossly intact. - Labs CBC & Chem 7: 04/26/19 09:29 04/26/19 09:29 Assessment and Plan Plan: 1. Spinal stenosis status post posterior lateral decompression and fusion. Postop day #2. Continue current pain management and we will add in morphine to see if this will help with pain and not cause dizziness which she is experiencing with Dilaudid. Continue incentive spirometry to reduce incidence of atelectasis and hospital-acquired pneumonia. Continue PT and OT. DVT prophylaxis per orthopedics. Baclofen added for back spasms. Patient may go home if cleared by surgery. 2. Postoperative hypotension, expected from surgery. Patient is status post 1 L of IV fluid bolus. 3. Tobacco use and dependence. Patient quit smoking 36 days ago on Chantix program. 4. Depression, recurrent. Continue citalopram 60 mg at bedtime, trazodone 200 mg at bedtime. 5. Hyperlipidemia. Continue Lipitor 20 mg at bedtime. 6. GI prophylaxis. Pepcid. Discharge plan: home Impression and plan of care have been directed as dictated by the signing physician. Aliya Rosa nurse practitioner acting as scribe for signing physician.
[2019-04-28] MEDS: ATORVASTATIN 20 MG TAB PO SCH (20:48)
[2019-04-28] MEDS: CITALOPRAM HYDROBROMIDE 20 MG TAB PO SCH (20:49)
[2019-04-29] MEDS: HYDROcodone/APAP 5-325MG 1 EACH TAB PO PRN ×2 (03:28→08:21)
[2019-04-29] MEDS: BACLOFEN 10 MG TAB PO PRN (04:30)
[2019-04-29] MEDS: SODIUM CHLORIDE 0.9% 1,000 ML IV SCH (04:50)
[2019-04-29 05:16] VITALS: BP 116/57; PULSE 83; TEMP 99
--- NOTE | 2019-04-29 08:30 | P.DS ---
Providers Date of admission: 04/25/19 18:52 Expected date of discharge: 04/29/19 Attending physician: José Miguel Wynn Consults: 04/25/19 18:52 Consult Physician Routine Consulting Provider: Lissa Mott Consult Reason/Comments: Medical management Do you want consulting provider notified?: Yes Primary care physician: Stated None - Discharge Diagnosis(es) (1) Radiculopathy Current Visit: Yes Status: Acute (2) Spinal stenosis Current Visit: Yes Status: Acute Hospital Course: The patient is a 63 -year-old female who is status post minimally invasive PLDF L4-5 and TLIF L4-[address] Wynn. Today is post op day 4. Patient has known history of low back pain and presented to discuss options. After discussion and consideration, patient elected to proceed surgeryl. The patient was seen preoperatively and medically cleared for surgery by her primary care physician. The procedure was performed without complications or sequelae. The patient was seen and evaluated at bedside today and denies any new complaints. Pain is reasonably controlled. Dressing is clean dry and intact. Her abdomen is soft and nontender. Has been passing gas but has not had a bowel movement since surgery. Dorsiflexion, plantarflexion, extensor hallucis longus positive sustaining bilaterally. Calves are soft and nontender. The patient has full foot and ankle motion without difficulty. Patient's bilateral lower extremities are neurovascular intact. Patient is orthopedically stable for discharge to home today. Pertinent Studies: Laboratory Tests 04/26/19 04/26/19 09:29 09:29 WBC 8.8 RBC 3.46 L Hgb 10.6 L Hct 32.0 L Glucose 71 L Patient Condition at Discharge: Stable Plan - Discharge Summary Discharge Rx Participant: No New Discharge Prescriptions: New Baclofen 10 mg PO TID PRN #90 tab PRN Reason: Spasms Hydrocodone/Acetaminophen [[place] 5-325] 1 - 2 each PO Q6HR PRN #56 tab PRN Reason: Pain Sennosides-Docusate Sodium [Senokot-S] 1 each PO DAILY #30 tab Continue traZODone HCL 200 mg PO HS Citalopram Hydrobromide [CeleXA] 60 mg PO HS Fish Oil/Dha/Epa [Fish Oil 1,200 mg Fish Oil] 2 cap PO HS Atorvastatin [Lipitor] 20 mg PO HS Ibuprofen [Motrin] 600 mg PO Q6HR PRN #20 tab PRN Reason: For pain Discharge Medication List Citalopram Hydrobromide [CeleXA] 60 mg PO HS 05/17/17 [History] traZODone HCL 200 mg PO HS 05/17/17 [History] Atorvastatin [Lipitor] 20 mg PO HS 12/09/18 [History] Fish Oil/Dha/Epa [Fish Oil 1,200 mg Fish Oil] 2 cap PO HS 12/09/18 [History] Ibuprofen [Motrin] 600 mg PO Q6HR PRN #20 tab 12/09/18 [Rx] Baclofen 10 mg PO TID PRN #90 tab 04/27/19 [Rx] Hydrocodone/Acetaminophen [[place] 5-325] 1 - 2 each PO Q6HR PRN #56 tab 04/27/19 [Rx] Sennosides-Docusate Sodium [Senokot-S] 1 each PO DAILY #30 tab 04/28/19 [Rx] Follow up Appointment(s)/Referral(s): Jose G Pate, YVES [PHYSICIAN LAN/WAN ENGINEER] - 2 Weeks (Patient may follow-up with Jose G Pate PA-C or Dr. Juan Wynn at [facility] in 2-3 weeks following discharge. ) Patient Instructions/Handouts: *Surgery [facility] - ([place]) Lumbar Surgery Discharge Instructions, Hydrocodone/Acetaminophen (By mouth), Baclofen (By mouth), Laxative, Stool Softeners (By mouth) Activity/Diet/Wound Care/Special Instructions: 1. Patient may shower with Tegaderm dressing intact. 2. Patient may remove Tegaderm dressing in 3 days and shower without a dressing at that time. 3. Patient should refrain from driving until at least after their first follow- up appointment in the office. 4. Patient should avoid excessive bending, twisting, and lifting; no lifting greater than 10 pounds 5. Take medications as prescribed 6. Do not soak in tub Discharge Disposition: HOME SELF-CARE
[2019-04-29] MEDS: FAMOTIDINE 20 MG TAB PO SCH (08:48)
[2019-04-29] MEDS: SENNOSIDES-DOCUSATE SODIUM 1 EACH TAB PO SCH (08:49)
[2019-04-29 10:27] VITALS: RESP 17
== END 2019-04-29 11:16 | disposition home or self-care (01) | DRG 455 ==
LOC: OR 13:57 → 3NMEDONC 18:52
PROVIDERS: ADMIT Orthopaedic Surgery Orthopaedic Surgery of the Spine; ATTEND Orthopaedic Surgery Orthopaedic Surgery of the Spine
PROC: 0SG0071 Fusion of Lumbar Vertebral Joint with Autologous Tissue Substitute, Posterior Approach, Posterior Column, Open Approach (ICD-10-PCS; principal; 2019-04-25 07:30)
PROC: 0ST20ZZ Resection of Lumbar Vertebral Disc, Open Approach (ICD-10-PCS; principal; 2019-04-25 07:30)
PROC: 0SG00AJ Fusion of Lumbar Vertebral Joint with Interbody Fusion Device, Posterior Approach, Anterior Column, Open Approach (ICD-10-PCS; principal; 2019-04-25 07:30)
DX: M48.061 Spinal stenosis, lumbar region without neurogenic claudication (principal); M51.16 Intervertebral disc disorders with radiculopathy, lumbar region; E78.5 Hyperlipidemia, unspecified; F32.9 Major depressive disorder, single episode, unspecified; M43.16 Spondylolisthesis, lumbar region; Z79.899 Other long term (current) drug therapy; Z82.49 Family history of ischemic heart disease and other diseases of the circulatory system; Z87.891 Personal history of nicotine dependence; Z88.1 Allergy status to other antibiotic agents; I95.9 Hypotension, unspecified
CPT/HCPCS: 36415; 72100; 80048; 85025; 86850; 86900; 86901; 87070

== ENCOUNTER → 2021-07-10 | Outpatient (CLI) | payer BC, OTHER ==
[2021-07-10 14:25] VITALS: BP 165/77; PULSE 91; RESP 18; TEMP 98.4
--- NOTE | 2021-07-10 14:26 | P.CON ---
Consult Note - . Consult date: 07/10/21 Assessment/Plan:: HISTORY OF PRESENT ILLNESS: 65 yr old female as a referral from Dr West presents today with a history of cervical spinal stenosis, disc protrusions, neuroforaminal stenoses, spondylosis and facet arthropathy for an evaluation. Patient states that she has neck pain at the base of her neck that shoots upward toward her scalp and eyebrows and a sharp shooting character. Patient also complains of neck pain shooting up and down her cervical spine and down to her bilateral shoulders accompanied with tingling of her hands. Sensation states the pain is 4 out of 10 in intensity currently but is usually 10 out of 10 in intensity in the morning. She states that she has been suffering with neck pain for years. Patient explains the neck pain as throbbing, intense, sharp accompanied with cracking sounds with rotation. Pain is provoked with rotation. Pain is relieved with medications, ice, heat, repositioning and rest. Patient states that a chiropractor "will not touch her " due to issues on imaging. Past Medical History: OA, Hyperlipidemia Past Surgical History: Lumbar surgery with hardware placement Social History: 30 pack year tobacco user, Hx of ETOH use, no illicit drug use. Lives alone. Family History: Mother- DM, OR, CAD. Father- Unknown. Brother- DM, Crohn's Disease, Edvin-Bar. All: See list Meds: See list REVIEW OF ORGAN SYSTEMS: CONSTITUTIONAL: No fevers or chills. No recent weight loss. HEENT: No visual acuity loss, eye pain, difficulties with hearing. No nosebleeds. No difficulty swallowing. RESPIRATORY: Denies any troubles with breathing or dyspnea on exertion. CARDIOVASCULAR: Denies any chest pain, palpitations, or recent heart attacks. GASTROINTESTINAL: Denies fatty food intolerance. Has change in bowel habits and gas bloat. GENITOURINARY: Denies any blood in urine. Has increased urinary frequency. NEUROLOGICAL: + numbness and tingling along the distal extremities. No seizure disorders or headaches. MUSCULOSKELETAL: + back pain SKIN: No skin cancer. No rash. PSYCHIATRIC: Denies current depression or suicidal thoughts. ENDOCRINE: Denies current thyroid disorders. Denies any blood sugar glucose intolerance. HEME/LYMPHATIC: Denies any lumps and bumps around the neck. History of deep venous thrombosis. ALLERGY/IMMUNOLOGY: No immunoglobulin therapy. No immune deficiencies. BREAST: Denies current breast lumps, pain or nipple discharge. Physical Examinations : Constitutional : Cooperative , not in acute distress . HEENT: Neck supple. No Lymphadenopathy. Normal thyroid size . Eyes no ptosis , no icterus, no photophobia . Hearing intact. Normal oropharynx. No Thrush. Respiratory : Chest clear to auscultations bilaterally. No wheezing. No rhonchi. Cardiovascular : Regular rate and rhythm , S1 / S2. No S3 . No S4. Gastrointestinal : Abdomen soft. No tenderness. Bowel sounds x 4. No organomegaly . Genitourinary : Deferred. Neurologic : Cranial nerve II to XII intact. No focal neurological deficits. Psychiatric : alert & oriented x 3. Matching mood & appropriate affect. Judgment & insight intact. Lymphatic No Lymphadenopathy. Musculoskeletal : Cervical Spine Motor strength in the deltoid and biceps: Normal right side. Normal Left side Motor strength biceps and the wrist extensors: Normal right side . Normal left side Motor strength in the triceps muscle: Normal right side. Normal left side Deep tendon reflexes: Normal at the biceps. Normal at Brachioradialis. Normal at triceps Crepitus with rotation Pain with palpation of the greater occipital nerves Vertebral body tenderness over C5 and C6 Cervical facet loading test: positive bilaterally over C5-C6 and C6-C7 with jumped reflex Spurling test: positive bilaterally Neck distraction test: positive berto aterally Tee sign: positive bilaterally Lumbar spine Motor strength lower extremities ,thigh and legs 5/5 Right side , 5/5 Left side Deep tendon reflexes : Normal Knee Jerk. Normal Ankle Jerk Lumbar facet Loading Test: positive Right / positive Left Range of motion of the lumbar spine Flexion 30 degrees, extension 10 degrees Straight Leg Raise test: Left/ Right positive at degree Sterling test: positive right / positive left. Severe tenderness over the Sacroiliac joint on the Right / Left sides Gaenslen test: positive bilaterally Seated flexion test: positive bilaterally. Imaging: Computed tomography scan of the cervical spine performed on 04/02/2022 reviewed Assessment/ Plan : Recommendation of QUANG at the C5-C6 Patient may need wrist repeat procedures based on adequacy of pain relief Risks, benefits of procedure discussed and patient verbalized understanding Patient may also benefit from facet blocks of the medial branches at a later time or occipital nerve blocks I have spent greater than 50 minutes on patient care today. Dr Al-Jagdeep was available by phone for the evaluation of this patient. The time was used to review the medical records including relevant urine studies and Prescription history (MAPs), review of the available imaging, evaluation and examination of the patient, coordination of care with the medical staff and if applicable referring physicians, as well as creation of the medical record PQRS Measure Charge Sheet Mode of Arrival: Ambulatory - Pain Location Neck Non-Pharmacological Interventions: Heat, Ice, Inactivity, Stretching Pharmacological Interventions: PRN Medication PQRS Narrative: Smoking Status Former smoker Blood Pressure 165/77 Pain Intensity [Neck] 4 Scale Used Numeric (1 - 10) Hx Alcohol Use (MH) No Home Medications: Ambulatory Orders Citalopram Hydrobromide [CeleXA] 60 mg PO HS 05/17/17 traZODone HCL 200 mg PO HS 05/17/17 Atorvastatin [Lipitor] 20 mg PO HS 12/09/18 Fish Oil/Dha/Epa [Fish Oil 1,200 mg Fish Oil] 2 cap PO HS 12/09/18 Baclofen 10 mg PO TID PRN #90 tab 04/27/19 Hydrocodone/Acetaminophen [[place] 5-325] 1 - 2 each PO Q6HR PRN #56 tab 04/27/19 Gabapentin 300 mg PO TID 07/09/21
== END ==
LOC: PNWHC3 13:30
PROVIDERS: ATTEND Physician Assistant Medical
DX: M50.20 Other cervical disc displacement, unspecified cervical region (principal); M48.02 Spinal stenosis, cervical region; M47.812 Spondylosis without myelopathy or radiculopathy, cervical region; M19.90 Unspecified osteoarthritis, unspecified site; E78.5 Hyperlipidemia, unspecified; Z88.1 Allergy status to other antibiotic agents; Z87.891 Personal history of nicotine dependence
CPT/HCPCS: 99211

== ENCOUNTER → 2022-09-19 | Outpatient (CLI) | payer MEDICARE, OTHER ==
--- NOTE | 2022-09-23 21:49 | MR ---
EXAMINATION TYPE: MR femur/thigh RT wo/w con DATE OF EXAM: 09/19/2022 COMPARISON: None HISTORY: 66-year-old female Right distal thigh/ knee pain. TECHNIQUE: Multiplanar, multisequence images of the right femur/thigh were obtained before and after administration of 7.5 mL intravenous Gadavist gadolinium contrast. FINDINGS: On the left, there is a small 8 mm intrasubstance tear at the hamstrings origin. Possible moderate de generative change of the left hip. There is a moderate knee joint effusion on both sides, right greater than left. Mild smooth synovial thickening at the right knee. Small 9 mm ossific fragment/fragmented spur along the lateral margin of the right patella. Mild subcutaneous soft tissue swelling on both sides mid and lower thighs. No discrete muscular yuriy a is identified. Mild generalized muscle atrophy. No suspicious bone marrow replacement or marrow edema is seen. Extensor mechanism of the right knee is intact. IMPRESSION: 1. Moderate knee joint effusions, right greater than left. Concomitant mild right knee joint synoviti s. Mild subcutaneous soft tissue swelling both mid and distal thighs. 2. Small 9 mm ossific fragment/fragmented spur along the lateral margin of the right patella. 3. Mild generalized muscle atrophy. 4. Possible moderate degenerative change at the left hip, partially visualized. Additional small 8 mm intrasubstance tear of the left hamstrings origin.
== END | disposition home or self-care (01) ==
LOC: RADMRIMAIN 21:35
PROVIDERS: ATTEND Family Medicine
DX: S83.421A Sprain of lateral collateral ligament of right knee, initial encounter (principal); M62.50 Muscle wasting and atrophy, not elsewhere classified, unspecified site; M25.461 Effusion, right knee; M65.861 Other synovitis and tenosynovitis, right lower leg
CPT/HCPCS: 73720; A9585

== ENCOUNTER → 2022-11-27 | Outpatient (CLI) | payer MEDICARE, OTHER ==
--- NOTE | 2022-11-27 17:45 | BD ---
EXAMINATION TYPE: Axial Bone Density DATE OF EXAM: 11/27/2022 CLINICAL HISTORY: 67 years old Female. ICD-10 CODE: Z78.0 POST MENOPAUSAL Height: 61 Weight: 165 FRAX RISK QUESTIONS: Alcohol (3 or more units per day): no Family History (Parent hip fracture): yes Glucocorticoids (More than 3mos): no (Ex: prednisone, prednisolone, methylprednisolone, dexamethasone, and hydrocortisone). History of Fracture in Adulthood: yes Secondary Osteoporosis: 1. Type 1 Diabetes: no 2. Hyperthyroidism: no 3. Menopause before 45: no 4. Malnutrition: no 5. Chronic liver disease: no Rheumatoid Arthritis: no Current Tobacco Use: yes RISK FACTORS HISTORY OF: Surgery to Spine/Hip(right/left)/Wrist (right/left): lumbar spine -3 years ago Family History of Osteoporosis: no Active: no Diet low in dairy products/other sources of calcium: no Postmenopausal woman: yes Lost more than 2 inches in height since high school: yes MEDICATIONS: Additional History: EXAM MEASUREMENTS: Bone mineral densitometry was performed using the Owned it System. Bone mineral density about the R hip (g/cm2): 0.994 Bone mineral density about the L hip (g/cm2): 0.990 T Score values are as follows: -----R Neck: -1.5 -----L Neck: -1.8 -----R Total: -0.1 -----L Total: -0.1 Z Score values are as follows: -----R Neck: -0.2 -----L Neck: -0.9 -----R Total: 0.8 -----L Total: 0.8 Bone mineral density : baseline Bone mineral density about the L Wrist (g/cm2): 0.618 T Score values are as follows: -----Dist. R+U: -0.8 -----Prox. R+U: -0.8 -----Radius total: -0.9 Z Score values are as follows: -----Dist. R+U: 0.6 -----Prox. R+U: 0.5 -----Radius total: 0.4 Bone mineral density : baseline FRAX%s: The graph provided illustrates a 28.8% chance for a major osteoporotic fx and a 3.7% chance f or the hips probability for fx in 10 years time. IMPRESSION: Normal (Values between +1 and -1 indicate normal bone mass). Consider repeating this study in 5 year s or sooner if there is some new clinical indication. NOTE: T-SCORE=SD OF THE YOUNG ADULT MEAN.
--- NOTE | 2022-11-28 06:44 | MM ---
Reason for Exam: Screening (asymptomatic). Last mammogram was performed 9 year(s) and 11 month(s) ago. Patient History: Menarche at age 14. First Full-Term at age 23. Postmenopausal. Risk Values: Hina 5 year model risk: 1.5%. NCI Lifetime model risk: 5.6%. Prior Study Comparison: 12/14/2012 Bilateral Screening Mammogram, Susan Conner. Tissue Density: There are scattered fibroglandular densities. Findings: Analyzed By CAD. Stable asymmetric prominent tissue and/or small circumscribed masses anteriorly in the right breast. There is no suspicious new group of microcalcifications or new suspicious mass in either breast. Overall Assessment: Benign, BI-RAD 2 Management: Screening Mammogram of both breasts in 1 year. . Patient should continue monthly self-breast exams. A clinical breast exam by your physician is recommended on an annual basis. This exam should not preclude additional follow-up of suspicious palpable abnormalities. Note on Hina scores and lifetime risk: 1. A Hina score greater than 3% is considered moderate risk. If this is the case, consider specialist referral to assess eligibility for a risk reducing agent. 2. If overall lifetime risk for the development of breast cancer is 20% or higher, the patient may qualify for future screening with alternating mammogram and breast MRI. Electronically signed and approved by: Gabriel Ahumada M.D.
== END | disposition home or self-care (01) ==
LOC: RADBDWWP 15:30
PROVIDERS: ATTEND Family Medicine
DX: Z12.31 Encounter for screening mammogram for malignant neoplasm of breast (principal); M85.89 Other specified disorders of bone density and structure, multiple sites; Z78.0 Asymptomatic menopausal state
CPT/HCPCS: 77063; 77067; 77080

== ENCOUNTER 2022-12-26 01:32 | Observation (INO) | payer MEDICARE, OTHER ==
--- NOTE | 2022-12-26 01:59 | ED ---
Dizziness HPI - General Chief Complaint: Syncope Stated Complaint: Fall, Syncope Time Seen by Provider: 12/26/22 01:55 Source: patient, RN notes reviewed, old records reviewed Mode of arrival: wheelchair Limitations: no limitations - History of Present Illness Initial Comments: This is a 67-year-old female to the emergency department for evaluation of a syncopal event syncopal event with collapsed falling backwards hitting her head. He states syncope or passing out for traumatic fall and then had head injury. Patient denies chest pain shortness breath or abdominal pain but does admit to headache. Headache and back of head pain. Patient also admits to being dizzy all day MD Complaint: near syncope -: days(s) Timing: gradual onset Severity: moderate Improves With: nothing Worsens With: nothing Associated Symptoms: denies other symptoms - Related Data Home Medications Medication Instructions Recorded Confirmed Citalopram Hydrobromide [CeleXA] 60 mg PO HS 05/17/17 07/10/21 traZODone HCL 200 mg PO HS 05/17/17 07/10/21 Atorvastatin [Lipitor] 20 mg PO HS 12/09/18 07/10/21 Fish Oil/Dha/Epa [Fish Oil 1,200 2 cap PO HS 12/09/18 07/10/21 mg Fish Oil] Gabapentin 300 mg PO TID 07/09/21 07/10/21 Previous Rx's Medication Instructions Recorded Baclofen 10 mg PO TID PRN #90 tab 04/27/19 Hydrocodone/Acetaminophen [[place] 1 - 2 each PO Q6HR PRN #56 tab 04/27/19 5-325] Allergies Allergy/AdvReac Type Severity Reaction Status Date / Time amoxicillin [From Augmentin] AdvReac Nausea & Verified 07/10/21 14:46 Vomiting clavulanic acid AdvReac Nausea & Verified 07/10/21 14:46 [From Augmentin] Vomiting Review of Systems ROS Statement: Those systems with pertinent positive or pertinent negative responses have been documented in the HPI. ROS Other: All systems not noted in ROS Statement are negative. Past Medical History Past Medical History: Hyperlipidemia Additional Past Medical History / Comment(s): HAD PNEUMONIA ABOUT 2 WEEKS AGO History of Any Multi-Drug Resistant Organisms: None Reported Past Surgical History: Back Surgery Additional Past Surgical History / Comment(s): L4-L5 decompression Past Anesthesia/Blood Transfusion Reactions: No Reported Reaction Past Psychological History: Depression Smoking Status: Current every day smoker Past Alcohol Use History: None Reported Past Drug Use History: None Reported - Past Family History Mother Family Medical History: Myocardial Infarction ([place]) Additional Family Medical History / Comment(s): Mother at age 78 with history of pneumonia, 3 vessel CABG. Father Additional Family Medical History / Comment(s): Father at age 83. Vital history is unknown as he never went to the doctor. Brother(s) Additional Family Medical History / Comment(s): Patient has 2 brothers and one has known spinal stenosis. Patient has 2 sisters and one has Crohn's and one has Edvin-Vieira. Patient has one daughter with Crohn's disease. General Exam Limitations: no limitations General appearance: alert, in no apparent distress Head exam: Present: atraumatic, normocephalic, normal inspection Eye exam: Present: normal appearance, PERRL, EOMI. Absent: scleral icterus, conjunctival injection, periorbital swelling ENT exam: Present: normal exam, mucous membranes moist Neck exam: Present: normal inspection. Absent: tenderness, meningismus, ly mphadenopathy Respiratory exam: Present: normal lung sounds bilaterally. Absent: respiratory distress, wheezes, rales, rhonchi, stridor Cardiovascular Exam: Present: regular rate, normal rhythm, normal heart sounds. Absent: systolic murmur, diastolic murmur, rubs, gallop, clicks GI/Abdominal exam: Present: soft, normal bowel sounds. Absent: distended, tenderness, guarding, rebound, rigid Extremities exam: Present: normal inspection, full ROM, normal capillary refill. Absent: tenderness, pedal edema, joint swelling, calf tenderness Back exam: Present: normal inspection Neurological exam: Present: alert, oriented X3, CN II-XII intact Psychiatric exam: Present: normal affect, normal mood Skin exam: Present: warm, dry, intact, normal color. Absent: rash Course Vital Signs 12/26/22 12/26/22 12/26/22 01:33 02:40 04:46 Temperature 97.6 F Pulse Rate 99 95 Respiratory 20 18 Rate Blood Pressure 74/58 101/65 114/76 O2 Sat by Pulse 100 Oximetry - Reevaluation(s) Reevaluation #1: 12/26/22 04:50 Medical records reviewed Reevaluation #2: 12/26/22 04:50 No recurrent syncope here in the ER Reevaluation #3: 12/26/22 04:50 Patient still feels a little off her unwell Reevaluation #4: 12/26/22 04:50 Was pt. sent in by a medical professional or institution ([facility], TOOLER, urgent care, hospital, or half-way...) When possible be specific @ -no Did you speak to anyone other than the patient for history (EMS, parent, family, police, friend...)? What history was obtained from this source @ -no Did you review nursing and triage notes (agree or disagree)? Why? @ -agree Are old charts reviewed (outside hosp., previous admission, EMS record, old EKG, old radiological studies, urgent care reports/EKG's, half-way records)? Report findings @ -yes Differential Diagnosis (chest pain, altered mental status, abdominal pain women, abdominal pain men, vaginal bleeding, weakness, fever, dyspnea, syncope, headache, dizziness, GI bleed, back pain, seizure, CVA, palpatations, mental health, musculoskeletal)? @ -prior EKG interpreted by me (3pts min.). @ -yes X-rays interpreted by me (1pt min.). @ -yes CT interpreted by me (1pt min.). @ -no U/S interpreted by me (1pt. min.). @ -no What testing was considered but not performed or refused? (CT, X-rays, U/S, labs)? Why? @ -none What meds were considered but not given or refused? Why? @ -none Did you discuss the management of the patient with other professionals (professionals i.e. MONO Murphy, TOOLER, lab, RT, psych nurse, social services specialist, handle assembler, teacher, transit police officer, case technician)? Give summary @ -no Was smoking cessation discussed for >3mins.? @ -no Was critical care preformed (if so, how long)? @ -no Were there social determinants of health that impacted care today? How? (Homelessness, low income, unemployed, alcoholism, drug addiction, transportation, low edu. Level, literacy, decrease access to med. care, [facility], rehab)? @ -none Was there de-escalation of care discussed even if they declined (Discuss DNR or withdrawal of care, Hospice)? DNR status @ -no What co-morbidities impacted this encounter? (DM, HTN, Smoking, COPD, CAD, Cancer, CVA, ARF, Chemo, Hep., AIDS, mental health diagnosis, sleep apnea, morbid obesity)? @ -none Was patient admitted / discharged? Hospital course, mention meds given and route, prescriptions, significant lab abnormalities, going to OR and other pertinent info. @ - Undiagnosed new problem with uncertain prognosis? @ -no Drug Therapy requiring intensive monitoring for toxicity (Heparin, Nitro, Insulin, Cardizem)? @ -no Were any procedures done? @ -no Diagnosis/symptom? @ - Acute, or Chronic, or Acute on Chronic? @ -Acute Uncomplicated (without systemic symptoms) or Complicated (systemic symptoms)? @ -Complicated Side effects of treatment? @ -no Exacerbation, Progression, or Severe Exacerbation? @ -exacerbation Poses a threat to life or bodily function? How? (Chest pain, [place], [place], pneumonia, PE, COPD, DKA, ARF, appy, cholecystitis, CVA, Diverticulitis, Homicidal, Suicidal, threat to staff... and all critical care pts) @ -yes Reevaluation #5: 12/26/22 04:50 Differential Syncope: Valvular disease, hypertrophic cardiomyopathy, pulmonary embolism, tamponade, tachycardia, bradycardia, DE, hypovolemia, hemorrhage, dissection, anemia, intracranial hemorrhage, seizure, hypoglycemia, carbon monoxide poisoning, this is not meant to be an all-inclusive list. EKG Findings - EKG Comments: EKG Findings:: EKG shows sinus 71 AK 120 QRS 110 QTc 471 Medical Decision Making - Medical Decision Making 67 female who will be admitted for syncopal event followed by a fall, patient did land on the back of her head after passing out. No to medic injuries noted patient will be admitted for observation during cause of syncope - Lab Data Result diagrams: 12/26/22 02:16 12/26/22 02:16 Lab Results 12/26/22 12/26/22 12/26/22 Range/Units 02:16 02:16 02:16 WBC 10.2 (3.8-10.6) k/uL RBC 4.53 (3.80-5.40) m/uL Hgb 14.0 (11.4-16.0) gm/dL Hct 41.6 (34.0-46.0) % MCV 91.8 (80.0-100.0) fL MCH 30.9 (25.0-35.0) pg MCHC 33.7 (31.0-37.0) g/dL RDW 13.2 (11.5-15.5) % Plt Count 412 (150-450) k/uL MPV 7.9 Neutrophils % 76 % Lymphocytes % 15 % Monocytes % 6 % Eosinophils % 2 % Basophils % 1 % Neutrophils # 7.8 H (1.3-7.7) k/uL Lymphocytes # 1.5 (1.0-4.8) k/uL Monocytes # 0.6 (0-1.0) k/uL Eosinophils # 0.2 (0-0.7) k/uL Basophils # 0.1 (0-0.2) k/uL PT 10.2 (9.0-12.0) sec INR 1.0 (<1.2) APTT 23.4 (22.0-30.0) sec Sodium 132 L (137-145) mmol/L Potassium 3.4 L (3.5-5.1) mmol/L Chloride 96 L (98-107) mmol/L Carbon Dioxide 25 (22-30) mmol/L Anion Gap 11 mmol/L BUN 19 H (7-17) mg/dL Creatinine 1.69 H (0.52-1.04) mg/dL Est GFR (CKD-EPI)AfAm 36 (>60 ml/min/1.73 sqM) Est GFR (CKD-EPI)NonAf 31 (>60 ml/min/1.73 sqM) Glucose 87 (74-99) mg/dL Lactic Ac Sepsis Rflx Plasma Lactic Acid Coleman (0.7-2.0) mmol/L Calcium 9.9 (8.4-10.2) mg/dL Phosphorus 2.9 (2.5-4.5) mg/dL Magnesium 2.1 (1.6-2.3) mg/dL Total Bilirubin 1.1 (0.2-1.3) mg/dL AST 44 H (14-36) U/L ALT 25 (4-34) U/L Alkaline Phosphatase 62 (38-126) U/L Troponin I (0.000-0.034) ng/mL NT-Pro-B Natriuret Pep 453 pg/mL Total Protein 7.1 (6.3-8.2) g/dL Albumin 4.3 (3.5-5.0) g/dL 12/26/22 12/26/22 12/26/22 Range/Units 02:16 02:16 02:42 WBC (3.8-10.6) k/uL RBC (3.80-5.40) m/uL Hgb (11.4-16.0) gm/dL Hct (34.0-46.0) % MCV (80.0-100.0) fL MCH (25.0-35.0) pg MCHC (31.0-37.0) g/dL RDW (11.5-15.5) % Plt Count (150-450) k/uL MPV Neutrophils % % Lymphocytes % % Monocytes % % Eosinophils % % Basophils % % Neutrophils # (1.3-7.7) k/uL Lymphocytes # (1.0-4.8) k/uL Monocytes # (0-1.0) k/uL Eosinophils # (0-0.7) k/uL Basophils # (0-0.2) k/uL PT (9.0-12.0) sec INR (<1.2) APTT (22.0-30.0) sec Sodium (137-145) mmol/L Potassium (3.5-5.1) mmol/L Chloride (98-107) mmol/L Carbon Dioxide (22-30) mmol/L Anion Gap mmol/L BUN (7-17) mg/dL Creatinine (0.52-1.04) mg/dL Est GFR (CKD-EPI)AfAm (>60 ml/min/1.73 sqM) Est GFR (CKD-EPI)NonAf (>60 ml/min/1.73 sqM) Glucose (74-99) mg/dL Lactic Ac Sepsis Rflx Y Plasma Lactic Acid Coleman 2.9 H* (0.7-2.0) mmol/L Calcium (8.4-10.2) mg/dL Phosphorus (2.5-4.5) mg/dL Magnesium (1.6-2.3) mg/dL Total Bilirubin (0.2-1.3) mg/dL AST (14-36) U/L ALT (4-34) U/L Alkaline Phosphatase (38-126) U/L Troponin I <0.012 (0.000-0.034) ng/mL NT-Pro-B Natriuret Pep pg/mL Total Protein (6.3-8.2) g/dL Albumin (3.5-5.0) g/dL - Radiology Data Radiology results: report reviewed (CT brain C-spine is negative for acute disease and), image reviewed Disposition Clinical Impression: Vasovagal syncope, Syncope, Dehydration Disposition: HOME SELF-CARE Condition: Good Is patient prescribed a controlled substance at d/c from ED?: No Time of Disposition: 04:50
[2022-12-26] MEDS ORDERED: SODIUM CHLORIDE 0.9% 1,000 ML IV STA (02:00)
[2022-12-26 02:34] LABS: Partial Thromboplastin Time 23.4 sec (22.0-30.0); Prothrombin Time 10.2 sec (9.0-12.0)
[2022-12-26 02:35] LABS: ALT 25 U/L (4-34); African American GFR (CKD) 36 (>60 ml/min/1.73 sqM); Anion Gap 11 mmol/L; Basophils # (A) 0.1 k/uL (0-0.2); Basophils % (A) 1 %; Blood Urea Nitrogen 19 mg/dL (7-17); Calcium 9.9 mg/dL (8.4-10.2); Carbon Dioxide 25 mmol/L (22-30); Chloride 96 mmol/L (98-107); Eosinophils # (A) 0.2 k/uL (0-0.7); Eosinophils % (A) 2 %; Glucose 87 mg/dL (74-99); HCT 41.6 % (34.0-46.0); Lymphocytes # (A) 1.5 k/uL (1.0-4.8); Lymphocytes % (A) 15 %; MCH 30.9 pg (25.0-35.0); MCHC 33.7 g/dL (31.0-37.0); MCV 91.8 fL (80.0-100.0); Mean Platelet Volume 7.9; Monocytes # (A) 0.6 k/uL (0-1.0); Monocytes % (A) 6 %; Neutrophils # (A) 7.8 k/uL (1.3-7.7); Neutrophils % (A) 76 %; Non-African American GFR(CKD) 31 (>60 ml/min/1.73 sqM); Phosphorus 2.9 mg/dL (2.5-4.5); Platelet Count 412 k/uL (150-450); RBC 4.53 m/uL (3.80-5.40); RDW 13.2 % (11.5-15.5); Sodium 132 mmol/L (137-145); Total Bilirubin 1.1 mg/dL (0.2-1.3); WBC 10.2 k/uL (3.8-10.6)
[2022-12-26 02:38] LABS: AST 44 U/L (14-36); Albumin 4.3 g/dL (3.5-5.0); Alkaline Phosphatase 62 U/L (38-126); Magnesium 2.1 mg/dL (1.6-2.3); Potassium 3.4 mmol/L (3.5-5.1); Total Protein 7.1 g/dL (6.3-8.2)
[2022-12-26 02:44] LABS: NT-Pro-B-Type Natriuretic Pept 453 pg/mL
[2022-12-26] MEDS ORDERED: ONDANSETRON 4 MG/2 ML VIAL IVP PRN (04:49)
[2022-12-26] MEDS ORDERED: NALOXONE 0.4 MG/ML 1 ML VIAL IV PRN (04:49)
[2022-12-26] MEDS ORDERED: MORPHINE SULFATE 4 MG/ML SYRINGE IV PRN (04:49)
--- NOTE | 2022-12-26 04:50 | CT ---
EXAM: CT Head Without Intravenous Contrast CLINICAL HISTORY: ITS.REASON CT Reason: fall TECHNIQUE: Axial computed tomography images of the head/brain without intravenous contrast. CTDI is 45.2 mGy and DLP is 1008 mGy-cm. This CT exam was performed using one or more of the following dose reduction techniques: automated exposure control, adjustment of the mA and/or kV according to patient size, and/or use of iterative reconstruction technique. COMPARISON: No relevant prior studies available. FINDINGS: Brain: No hemorrhage or mass effect. Ventricles: No hydrocephalus. Bones/joints: Unremarkable. Soft tissues: Scalp swelling. Sinuses: No air fluid level. Mastoid air cells: Clear. IMPRESSION: No acute hemorrhage, hydrocephalus, or mass effect. EXAM: CT Cervical Spine Without Intravenous Contrast CLINICAL HISTORY: ITS.REASON CT Reason: fall TECHNIQUE: Axial computed tomography images of the cervical spine without intravenous contrast. CTDI is 55.4 mGy and DLP is 254.3 mGy-cm. This CT exam was performed using one or more of the following dose reduction techniques: automated exposure control, adjustment of the mA and/or kV according to patient size, and/or use of iterative reconstruction technique. COMPARISON: No relevant prior studies available. FINDINGS: Vertebrae: No acute fracture. Discs/spinal canal/neural foramina: degenerative changes. Soft tissues: No prevertebral swelling. IMPRESSION: No acute fracture or subluxation.
[2022-12-26] MEDS: SODIUM CHLORIDE 0.9% 1,000 ML IV SCH ×2 (07:06→18:56)
[2022-12-26] MEDS ORDERED: valACYclovir HCL 1,000 MG TABLET PO PRN (11:30)
--- NOTE | 2022-12-26 11:54 | HP ---
HISTORY AND PHYSICAL CHIEF COMPLAINTS: Syncope and fall. HISTORY OF PRESENT ILLNESS: This is a 67-year-old woman with a past medical history of multiple medical problems, was admitted with syncopal event. The patient fell backwards hitting the head. The patient also had apparently hematoma of the scalp. The initial workup was negative excluding creatinine 1.6 mg indicating acute renal failure. There is no history of any fever, rigors, or chills at this time. PAST MEDICAL HISTORY: Reviewed include hyperlipidemia, history of back surgery, history of pneumonia. Rest of the history and rest of the chart is also reviewed. HOME MEDICATIONS: Reviewed, include Valtrex, dose and rest of medications reviewed. ALLERGIES: Reviewed include Augmentin. FAMILY HISTORY: History of myocardial infarction in the family. SOCIAL HISTORY: History of smoking. REVIEW OF SYSTEMS: Fourteen-point review is negative except as mentioned earlier. PHYSICAL EXAMINATION: VITAL SIGNS: Pulse is 82, blood pressure 111/69, respirations 18. HEENT: Conjunctivae normal. NECK: No JVD. CARDIOVASCULAR: S1, S2. RESPIRATIONS: Breath sounds diminished at the bases. ABDOMEN: Soft. LEGS: No edema. NERVOUS SYSTEM: No focal deficits. SKIN: No ulcer, rash, or bleeding. JOINTS: No active deforming arthropathy. LABORATORY DATA: Reviewed. ASSESSMENT: 1. Syncope for evaluation, possible dehydration or orthostatic hypotension. 2. Acute renal failure, possibly prerenal acute tubular necrosis. 3. Elevated lactic acid. 4. Hyponatremia. 5. Hypokalemia. 6. Hyperlipidemia. 7. History of recent pneumonia. 8. History of nicotine dependence. RECOMMENDATIONS: This is a 67-year-old woman presented with multiple complex medical issues, we will monitor the patient closely. Continue the IV fluids. We will obtain syncope workup including Cardiology and Neurology consultations. I would also consult Nephrology and continue to monitor. Orthostatic vitals will be ordered. Resume the home medications. IV fluids. Repeat labs in the morning. Overall prognosis guarded. This patient might require more than 2 nights hospital stay because of multiple complex medical issues as listed above. Further recommendations to follow. MMODL / IJN: [id number] /
--- NOTE | 2022-12-26 12:07 | P.CRDCN ---
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 She has a past medical history of gastroesophageal reflux disease, hypertension, chronic back and neck pain. We have been asked to evaluate the patient for syncope. Patient gives history that she has had 4 episodes last week and 2 episodes on the last 2 days each of having a syncopal episode. She states she feels lightheaded and then all of a sudden she goes d own. She states she has pounding in her chest prior to the episode. She does not lose bladder control. She sometimes has chest pain. No shortness of breath. No lower extremity edema. The episodes can happen when she is sitting or when she is walking. She uses a walker for ambulation. Patient denies history of diabetes, no history of smoking. She complains of a cough with phlegm production. She denies fever. She has occasional blood in her stools and in her urine. She sometimes has nausea. She denies seizure activity or history of stroke. She complains of weakness all over. She denies any caffeine use or any alcohol use. Noted patient's initial blood pressure was 74/58. Patient is seen today in the emergency center waiting for a bed on the observation unit EKG sinus rhythm no acute ST changes CBC is unremarkable. INR 1. Sodium 132, potassium 3.4, chloride 96, BUN 19 and creatinine 1.69. Home cardiac medications: Trulicity 1.5 mg subcu on , fish oil and bedtime, losartan 25 mg lactic acid initially 2.9 with repeated 0.8. AST 44 other liver function tests are normal. Troponin negative 2. ProBNP 453. at bedtime and losartan hydrochlorothiazide 5012.5 mg daily Review Of Systems: At the time of my evaluation: Constitutional: No fever, no chills. No weakness, fatigue or lethargy. EENT: No headache. No dizziness. Lungs: No shortness of breath, cough, no sputum production. No wheezing. Cardiovascular: No chest pain, no lower extremity edema. + palpitations. No paroxysmal nocturnal dyspnea. No orthopnea. No lightheadedness or dizziness. + syncopal episodes. Abdominal: No abdominal pain. No nausea, vomiting. No diarrhea. No constipati on. No bloody or tarry stools. Genitourinary: No dysuria.. No urinary retention. Musculoskeletal: No myalgias. No muscle weakness, no frequent falls. No back pain. No neck pain. Integumentary: No wounds. No rash. No unusual bruising. Neurologic: No aphasia. No facial droop. No change in mentation. No head injury. No headache. Physical examination: Gen: This is a 67-year-old female. She is resting on ER stretcher and appears to be comfortable and in no acute distress. VS: reviewed blood pressure 111/69, heart rate 82, telemetry sinus rhythm HEENT: Head is atraumatic, normocephalic. Pupils equal, round. Sclerae is anicteric. NECK: Supple. No JVD. . LUNGS: Bilateral wheezes or rhonchi. No intercostal retractions. HEART: Regular rate and rhythm. No murmur. ABDOMEN: Soft No tenderness. EXTREMITIES: No pedal edema. No calf tenderness. NEUROLOGICAL: Patient is awake, alert and oriented x3. Assessment: Syncopal episodes of unclear etiology rule out arrhythmia, orthostatic hypotension Acute kidney injury Lactic acidosis Hypertension Gastroesophageal reflux disease Chronic back and neck pain Plan: Hold antihypertensive medications Obtain orthostatic vital signs Obtain 2-D echocardiogram and Doppler study to assess cardiac structure and function If no cause is found for the syncopal episodes, patient may benefit from Loop recorder implantation. Thank you kindly for this consultation. Nurse practitioner note has been reviewed, I agree with documented findings and plan of care. Patient was seen and examined. Past Medical History Past Medical History: Hyperlipidemia Additional Past Medical History / Comment(s): HAD PNEUMONIA ABOUT 2 WEEKS AGO History of Any Multi-Drug Resistant Organisms: None Reported Past Surgical History: Back Surgery Additional Past Surgical History / Comment(s): L4-L5 decompression Past Anesthesia/Blood Transfusion Reactions: No Reported Reaction Past Psychological History: Depression Smoking Status: Current every day smoker Past Alcohol Use History: None Reported Past Drug Use History: None Reported - Past Family History Mother Family Medical History: Myocardial Infarction ([place]) Additional Family Medical History / Comment(s): Mother at age 78 with history of pneumonia, 3 vessel CABG. Father Additional Family Medical History / Comment(s): Father at age 83. Vital history is unknown as he never went to the doctor. Brother(s) Additional Family Medical History / Comment(s): Patient has 2 brothers and one has known spinal stenosis. Patient has 2 sisters and one has Crohn's and one has Edvin-Vieira. Patient has one daughter with Crohn's disease. Medications and Allergies Home Medications Medication Instructions Recorded Confirmed Type Fish Oil/Dha/Epa [Fish Oil 1,200 2 cap PO HS 12/09/18 12/26/22 History mg Fish Oil] Biotin 5 mg PO DAILY 12/26/22 12/26/22 History Cholecalciferol (Vitamin D3) 75 mcg PO HS 12/26/22 12/26/22 History [Vitamin D3 (3000 Iu)] Cyanocobalamin (Vitamin B-12) 1,000 mcg PO DAILY 12/26/22 12/26/22 History [Vitamin B-12] Dextroamphetamine/Amphetamine 20 mg PO BID 12/26/22 12/26/22 History [Adderall] Dulaglutide [Trulicity] 1.5 mg SQ TH 12/26/22 12/26/22 History Fluticasone/Umeclidin/Vilanter 1 puff INHALATION RT-DAILY@1200 12/26/22 12/26/22 History [Trelegy Ellipta 200-62.5-25] Gabapentin [Neurontin] 600 mg PO TID 12/26/22 12/26/22 History Glycopyrrolate 1 mg PO TID 12/26/22 12/26/22 History HYDROcodone/APAP 10-325MG [[place] 1 tab PO TID 12/26/22 12/26/22 History 10-325] Losartan Potassium [Cozaar] 25 mg PO HS 12/26/22 12/26/22 History Losartan-Hctz 50-12.5 mg [Hyzaar 1 tab PO DAILY 12/26/22 12/26/22 History 50-12.5] Omeprazole [PriLOSEC] 40 mg PO DAILY 12/26/22 12/26/22 History buPROPion SR [Wellbutrin SR] 150 mg PO BID 12/26/22 12/26/22 History valACYclovir HCL [Valtrex] 1,000 mg PO DAILY PRN 12/26/22 12/26/22 History Allergies Allergy/AdvReac Type Severity Reaction Status Date / Time amoxicillin [From Augmentin] AdvReac Nausea & Verified 12/26/22 07:22 Vomiting clavulanic acid AdvReac Nausea & Verified 12/26/22 07:22 [From Augmentin] Vomiting Physical Exam Vitals: Vital Signs Temp Pulse Resp BP Pulse Ox 12/26/22 08:27 82 18 111/69 98 12/26/22 04:46 95 18 114/76 12/26/22 02:40 101/65 12/26/22 01:33 97.6 F 99 20 74/58 100 Intake and Output 12/25/22 12/26/22 12/26/22 22:59 06:59 14:59 Other: Weight 68.039 kg Results 12/26/22 02:16 12/26/22 02:16 Cardiac Enzymes 12/26/22 12/26/22 12/26/22 Range/Units 02:16 02:16 07:43 AST 44 H (14-36) U/L Troponin I <0.012 <0.012 (0.000-0.034) ng/mL Coagulation 12/26/22 Range/Units 02:16 PT 10.2 (9.0-12.0) sec APTT 23.4 (22.0-30.0) sec CBC 12/26/22 Range/Units 02:16 WBC 10.2 (3.8-10.6) k/uL RBC 4.53 (3.80-5.40) m/uL Hgb 14.0 (11.4-16.0) gm/dL Hct 41.6 (34.0-46.0) % Plt Count 412 (150-450) k/uL Comprehensive Metabolic Panel 12/26/22 Range/Units 02:16 Sodium 132 L (137-145) mmol/L Potassium 3.4 L (3.5-5.1) mmol/L Chloride 96 L (98-107) mmol/L Carbon Dioxide 25 (22-30) mmol/L BUN 19 H (7-17) mg/dL Creatinine 1.69 H (0.52-1.04) mg/dL Glucose 87 (74-99) mg/dL Calcium 9.9 (8.4-10.2) mg/dL AST 44 H (14-36) U/L ALT 25 (4-34) U/L Alkaline Phosphatase 62 (38-126) U/L Total Protein 7.1 (6.3-8.2) g/dL Albumin 4.3 (3.5-5.0) g/dL Current Medications Generic Name Dose Route Start Last Admin Trade Name Freq PRN Reason Stop Dose Admin Sodium Chloride 1,000 mls @ 75 mls/hr 12/26/22 05:00 12/26/22 07:06 Saline 0.9% IV 75 mls/hr .[id number] KAMINI Administration Morphine Sulfate 4 mg 12/26/22 04:49 Morphine Sulfate 4 Mg/Ml Syringe IV Q4HR PRN Severe Pain (Scale 7 to 10) Naloxone HCl 0.2 mg 12/26/22 04:49 Naloxone 0.4 Mg/Ml 1 Ml Vial IV Q2M PRN Opioid Reversal Ondansetron HCl 4 mg 12/26/22 04:49 Ondansetron 4 Mg/2 Ml Vial IVP Q8HR PRN Nausea And Vomiting Intake and Output 12/25/22 12/26/22 12/26/22 22:59 06:59 14:59 Other: Weight 68.039 kg 12/26/22 02:16 12/26/22 02:16
--- NOTE | 2022-12-26 12:09 | CA ---
Transthoracic Echo Report Name: Rosmery Vazquez Age: 67 Gender: F : 1955 Exam Date: 12/26/2022 09:30 Exam Location: [facility] Ht (in): 62 Wt (lb): 150 Ordering Physician: An Mendez Attending/Referring Phys: [id number], Vanessa Carpenter [employer] Denise Schwarz RDCS Procedure CPT: Indications: LVF Cardiac Hx: Technical Quality: Good Contrast 1: Total Dose (mL): Contrast 2: Total Dose (mL): MEASUREMENTS (Male / Female) Normal Values 2D ECHO LV Diastolic Diameter PLAX 4.1 cm 4.2 - 5.9 / 3.9 - 5.3 cm LV Systolic Diameter PLAX 2.8 cm IVS Diastolic Thickness 0.9 cm 0.6 - 1.0 / 0.6 - 0.9 cm LVPW Diastolic Thickness 0.9 cm 0.6 - 1.0 / 0.6 - 0.9 cm LV Relative Wall Thickness 0.4 RV Internal Dim ED PLAX 2.8 cm LA Systolic Diameter LX 3.2 cm 3.0 - 4.0 / 2.7 - 3.8 cm LV Diastolic Volume MOD 4C 53.9 cm??? LV Systolic Volume MOD 4C 23.2 cm??? LV Ejection Fraction MOD 4C 56.9 % LV Cardiac Index MOD 4C 1408.1 cm???/min???m??? LV Diastolic Length 4C 8.1 cm LV Systolic Length 4C 6.5 cm LV Diastolic Volume MOD 2C 42.5 cm??? LV Systolic Volume MOD 2C 21.8 cm??? LV Ejection Fraction MOD 2C 48.7 % LV Cardiac Index MOD 2C 948.5 cm???/min???m??? LV Diastolic Length 2C 8.2 cm LV Systolic Length 2C 6.9 cm LA Volume 26.1 cm??? 18 - 58 / 22 - 52 cm??? M-MODE Aortic Root Diameter MM 2.8 cm MV E Point Septal Separation 1.0 cm DOPPLER AV Peak Velocity 146.5 cm/s AV Peak Gradient 8.6 mmHg MV Area PHT 2.4 cm??? Mitral E Point Velocity 92.4 cm/s Mitral A Point Velocity 130.9 cm/s Mitral E to A Ratio 0.7 MV Deceleration Time 314.7 ms MV E' Velocity 5.6 cm/s Mitral E to MV E' Ratio 16.6 FINDINGS Left Ventricle Left ventricular ejection fraction is estimated at 55-60 %. Left ventricular cavity size normal. Left ventricular wall thickness normal. Right Ventricle Normal right ventricular size and function. Unable to estimate the right ventricular systolic pressure. Right Atrium Normal right atrial size. Left Atrium Normal left atrial size. Mitral Valve Structurally normal mitral valve. No mitral stenosis, or prolapse. Trace mitral regurgitation Aortic Valve Aortic valve not well visualized. Tricuspid Valve Structurally normal tricuspid valve. No tricuspid stenosis, regurgitation or prolapse. Pulmonic Valve Pulmonic valve not well visualized. Pericardium Normal pericardium. No pericardial effusion. Aorta Normal size aortic root and proximal ascending aorta. CONCLUSIONS 1. Normal left ventricular size and systolic function 2. Trace mitral regurgitation 3. Technically difficult study Previewed by: Dr. Cee Ordaz MD (Electronically Signed) Final Date: 26 December 2022 12:08
[2022-12-26] MEDS: SYMBICORT 160-4.5 MCG INHALER INHALATION SCH ×2 (12:25→21:22)
[2022-12-26] MEDS: IPRATROPIUM 0.5 MG/2.5 ML NEBU INHALATION SCH ×3 (12:26→21:23)
[2022-12-26 13:00] LABS: African American GFR (CKD) 50 (>60 ml/min/1.73 sqM); Anion Gap 7 mmol/L; Blood Urea Nitrogen 18 mg/dL (7-17); Carbon Dioxide 25 mmol/L (22-30); Chloride 101 mmol/L (98-107); Glucose 64 mg/dL (74-99); Non-African American GFR(CKD) 44 (>60 ml/min/1.73 sqM); Potassium 2.8 mmol/L (3.5-5.1); Sodium 133 mmol/L (137-145)
[2022-12-26] MEDS: HYDROcodone/APAP 10-325MG 1 EACH TAB PO SCH ×2 (15:53→21:52)
[2022-12-26] MEDS ORDERED: Potassium Replacement Protocol 1 EACH MISC MISCELLANE PRN (16:12)
[2022-12-26] MEDS: GABAPENTIN 300 MG CAP PO SCH ×2 (16:43→21:52)
[2022-12-26] MEDS: POTASSIUM CHLORIDE ER 20 MEQ TAB.ER PO SCH ×5 (16:44→21:52)
[2022-12-26] MEDS: NON FORMULARY DRUG (Dextroamphetamine/Amphetamine [Adderall] 20 MG Tablet) PO SCH (17:48)
[2022-12-26] MEDS ORDERED: NON FORMULARY DRUG (Fish Oil/Dha/Epa [Fish Oil 1,200 Mg Fish Oil] 1 EACH Capsule) PO SCH (21:00)
[2022-12-26] MEDS ORDERED: CHOLECALCIFEROL 25 MCG (1000 IU) TABLET PO SCH (21:00)
[2022-12-26] MEDS ORDERED: LOSARTAN 25 MG TAB PO SCH (21:00)
[2022-12-26] MEDS: buPROPion SR 150 MG TABLET.ER PO SCH (21:52)
--- NOTE | 2022-12-26 23:46 | P.CNNES ---
History of Present Illness Consult date: 12/26/22 Requesting physician: Ligia Godinez Reason for Consult: syncope, hit head on fall History of Present Illness: Patient is a 67-year-old right-handed female with history of hyperlipidemia, fibromyalgia, presents to the hospital today at 1:32 PM for recurrent syncope. Patient states that in the last 10 days, she had about 10 syncopal spells. The first time she was walking, was not stressed, started feeling dizzy and fell. She could be sitting or standing, started shaking, feels dizzy and then falls and hit the ground. She is out for "a few minutes". Patient denies any tongue bite with any of those spells. Patient has mild baseline incontinence, uses sanitary pads, and noticed each time that it has been wet more than usual. Patient states that one time she was in the kitchen and with the syncopal spell, fell over and burnt her right forearm. Patient came to, and then passed out again. Patient has some blister and cut on the right forearm from the syncope. Vital signs on arrival blood pressure 74/58, pulse rate 99 temperature 97.6. Patient had orthostatics checked, in which her supine blood pressure was 103/66, pulse rate 88, sitting 105/60, pulse rate 92 and on standing it was 98/61 with pulse of 69. Orthostatics negative. Blood test shows normal CBC, PT/PTT, sodium 132 potassium 3.4, BUN 19, creatinine 1.69. Lactate was 2.9. AST borderline 44, ALT 25. Troponin negative. EKG shows sinus rhythm. CT head revealed no acute hemorrhage, hydrocephalus or mass effect. I personally revie wed CT head, agree with the findings. CT of the cervical spine negative for any fracture or subluxation. Patient has history of smoking half pack per day for last 50 years. Still smokes. Denies any history of hypertension, diabetes, alcohol use or any history of seizures. Patient states that her mother of cerebral aneurysm. Patient herself was checked for aneurysm, follows up with Dr. Mejia office. Patient was found to have some "white spots on the left side of the brain. Her brother also has some "white matter lesions of the brain". Review of Systems Constitutional: Reports night sweats, Reports weight loss, Denies chills, Denies fever Eyes: denies blurred vision (See floaters, but eyes tested fine.), denies diplopia, denies pain Ears: left: tinnitus, bilateral: decreased hearing, deny: ear discharge Ears, nose, mouth and throat: Reports headache (Left occipital region, goes to the front.), Denies sore throat Cardiovascular: Denies chest pain, Denies shortness of breath Respiratory: Reports congestion, Reports cough, Denies excessive sputum Gastrointestinal: Denies abdominal pain, Denies diarrhea, Denies nausea, Denies vomiting Genitourinary: Reports stress incontinence, Denies dysuria, Denies hematuria Musculoskeletal: Reports low back pain, Reports neck pain, Denies myalgias Integumentary: Reports lesions, Reports sores, Denies pruritus, Denies rash Neurological: Reports as per HPI Psychiatric: Reports anxiety, Reports depression Endocrine: Reports weight change, Denies fatigue Hematologic/Lymphatic: Reports easy bruising, Denies easy bleeding Past Medical History Past Medical History: Fibromyalgia, Hyperlipidemia Additional Past Medical History / Comment(s): pneumonia chronic back neck pain History of Any Multi-Drug Resistant Organisms: None Reported Past Surgical History: Back Surgery, Section, Tubal Ligation Additional Past Surgical History / Comment(s): L4-L5 decompression Past Anesthesia/Blood Transfusion Reactions: No Reported Reaction Past Psychological History: Depression Smoking Status: Current every day smoker Past Alcohol Use History: None Reported Additional Past Alcohol Use History / Comment(s): < 1 pack per day smoker. Patient smoked for 45 years. No illicit drug use, no alcohol use. Past Drug Use History: None Reported - Past Family History Mother Family Medical History: Myocardial Infarction ([place]) Additional Family Medical History / Comment(s): Mother at age 78 with h istory of pneumonia, 3 vessel CABG. Father Additional Family Medical History / Comment(s): Father at age 83. Vital history is unknown as he never went to the doctor. Brother(s) Additional Family Medical History / Comment(s): Patient has 2 brothers and one has known spinal stenosis. Patient has 2 sisters and one has Crohn's and one has Edvin-Vieira. Patient has one daughter with Crohn's disease. Medications and Allergies Home Medications Medication Instructions Recorded Confirmed Type Fish Oil/Dha/Epa [Fish Oil 1,200 2 cap PO HS 12/09/18 12/26/22 History mg Fish Oil] Biotin 5 mg PO DAILY 12/26/22 12/26/22 History Cholecalciferol (Vitamin D3) 75 mcg PO HS 12/26/22 12/26/22 History [Vitamin D3 (3000 Iu)] Citalopram Hydrobromide 60 mg PO DAILY 12/26/22 12/26/22 History [Citalopram HBr] Cyanocobalamin (Vitamin B-12) 1,000 mcg PO DAILY 12/26/22 12/26/22 History [Vitamin B-12] Dextroamphetamine/Amphetamine 20 mg PO BID 12/26/22 12/26/22 History [Adderall] Dulaglutide [Trulicity] 1.5 mg SQ TH 12/26/22 12/26/22 History Fluticasone/Umeclidin/Vilanter 1 puff INHALATION RT-DAILY@1200 12/26/22 12/26/22 History [Trelegy Ellipta 200-62.5-25] Gabapentin [Neurontin] 600 mg PO TID 12/26/22 12/26/22 History Glycopyrrolate 1 mg PO TID 12/26/22 12/26/22 History HYDROcodone/APAP 10-325MG [Kountze 1 tab PO TID 12/26/22 12/26/22 History 10-325] Losartan Potassium [Cozaar] 25 mg PO HS 12/26/22 12/26/22 History Losartan-Hctz 50-12.5 mg [Hyzaar 1 tab PO DAILY 12/26/22 12/26/22 History 50-12.5] Lovastatin [Mevacor] 20 mg PO HS 12/26/22 12/26/22 History Omeprazole [PriLOSEC] 40 mg PO DAILY 12/26/22 12/26/22 History buPROPion SR [Wellbutrin SR] 150 mg PO BID 12/26/22 12/26/22 History traZODone HCL 200 mg PO HS 12/26/22 12/26/22 History valACYclovir HCL [Valtrex] 1,000 mg PO DAILY PRN 12/26/22 12/26/22 History Allergies Allergy/AdvReac Type Severity Reaction Status Date / Time amoxicillin [From Augmentin] AdvReac Nausea & Verified 12/26/22 07:22 Vomiting clavulanic acid AdvReac Nausea & Verified 12/26/22 07:22 [From Augmentin] Vomiting Physical Examination - Vital Signs Vital Signs: Vital Signs Temp Pulse Pulse Pulse Pulse Pulse Resp 12/26/22 20:01 80 87 12/26/22 19:58 97.8 F 77 12 12/26/22 16:37 84 12/26/22 16:25 86 12/26/22 15:46 92 69 88 12/26/22 13:25 98.5 F 87 16 12/26/22 12:45 86 18 12/26/22 08:27 82 18 12/26/22 04:46 95 18 12/26/22 02:40 12/26/22 01:33 97.6 F 99 20 BP BP BP BP BP Pulse Ox 12/26/22 20:01 120/76 112/72 99 12/26/22 19:58 129/79 98 12/26/22 16:37 12/26/22 16:25 99 12/26/22 15:46 105/60 98/61 103/66 99 12/26/22 13:25 116/71 98 12/26/22 12:45 135/74 98 12/26/22 08:27 111/69 98 12/26/22 04:46 114/76 12/26/22 02:40 101/65 12/26/22 01:33 74/58 100 Intake and Output 12/26/22 12/26/22 12/26/22 06:59 14:59 22:59 Other: # Voids 1 Weight 68.039 kg 68.039 kg Patient is an elderly female, very pleasant, in no acute distress. Patient is alert awake oriented to time place and person. Speech and language functions are normal. Patient can name and repeat very well. No aphasia or dysarthria. Attention, concentration and fund of knowledge is adequate. On cranial nerve examination, pupils are equal, round and reacting to light, visual montano are full on confrontation, with no neglect on double simultaneous stimulation. Extraocular muscles are intact with no nystagmus. Face is symmetric, tongue protrudes to the midline. Palatal elevation and sensation normal, hearing and shoulder shrug normal, facial sensation normal. On muscle strength testing, there is no pronator drift and the strength is normal in arms and legs distally and proximally. Deep tendon reflexes are symmetric but very trace in the upper and lower limbs and plantars downgoing. Sensory to touch is equal with no neglect on double simultaneous stimulation. Cerebellar function showed no ataxia for [id number] testing. No dysdiadochokinesia. No ataxia for [id number] testing on either side. Tone and bulk of muscles normal. Gait deferred.. On general examination, there is no carotid bruit or murmur, S1-S2 audible. Chest is clear on consultation. Abdomen is soft nontender. No organomegaly, bowel sounds present. Peripheral pulses are present. No edema. Patient has some blisters and a cut over her right external forearm from the fall on stove. Patient's skin and tongue appears dry. Results - Laboratory Findings CBC and BMP: 12/26/22 02:16 12/26/22 12:08 Abnormal Lab Findings: Abnormal Labs 12/26/22 12/26/22 12/26/22 02:16 02:16 02:16 Neutrophils # 7.8 H Sodium 132 L Potassium 3.4 L Chloride 96 L BUN 19 H Creatinine 1.69 H Glucose Plasma Lactic Acid Coleman 2.9 H* AST 44 H 12/26/22 12:08 Neutrophils # Sodium 133 L Potassium 2.8 L Chloride BUN 18 H Creatinine 1.29 H Glucose 64 L Plasma Lactic Acid Coleman AST Assessment and Plan Assessment: * Recurrent syncopal spells, unclear etiology. Rule out arrhythmia. Orthostatics are negative. * Hypertension * Lactic acidosis * Mild dehydration. * Chronic neck and back pain * Tobacco use Plan: * Orthostatics were checked, which were negative. * Patient seen by cardiology, recommending loop recorder. Agree with it. * Carotid Doppler to rule out stenosis. * 2-D echo revealed normal left-ventricular size and systolic function, with EF 55-60%. Normal left atrial size. Trace MR. * May consider checking EEG as an outpatient. * Dr. Toney covering neurology service over the weekend. Thank you for the consult.
[2022-12-27 01:41] VITALS: TEMP 98.1
[2022-12-27] MEDS: NON FORMULARY DRUG (Dextroamphetamine/Amphetamine [Adderall] 20 MG Tablet) PO SCH (06:21)
[2022-12-27] MEDS: SODIUM CHLORIDE 0.9% 1,000 ML IV SCH (06:24)
[2022-12-27] MEDS ORDERED: PANTOPRAZOLE 40 MG TABLET PO SCH (07:30)
[2022-12-27 07:41] VITALS: BP 149/73; RESP 16
--- NOTE | 2022-12-27 08:45 | US ---
EXAMINATION TYPE: US carotid duplex BILAT DATE OF EXAM: 12/27/2022 Exam done portable COMPARISON: NONE CLINICAL INDICATION: Female, 67 years old with history of Recurrent syncope; TECHNIQUE: Carotid duplex ultrasound examination. Indirect Doppler criteria was utilized. FINDINGS: EXAM MEASUREMENTS: RIGHT: Peak Systolic Velocity (PSV) cm/sec ----- Right CCA: 76.7 ----- Right ICA: 112.0 ----- Right ECA: 113.0 ICA/CCA ratio: 1.5 RIGHT: End Diastole cm/sec ----- Right CCA: 16.9 ----- Right ICA: 34.3 ----- Right ECA: 22.8 LEFT: Peak Systolic Velocity (PSV) cm/sec ----- Left CCA: 88.6 ----- Left ICA: 101.0 ----- Left ECA: 96.5 ICA/CCA ratio: 1.1 LEFT: End Diastole cm/sec ----- Left CCA: 20.0 ----- Left ICA: 28.0 ----- Left ECA: 15.3 VERTEBRALS (direction of flow): Right Vertebral: Antegrade Left Vertebral: Antegrade Rhythm: Normal No significant stenosis IMPRESSION: No ultrasound evidence for hemodynamically significant stenosis of the visualized bilateral carotid s ystems. Criteria for Assigning % of Stenosis / Diameter reduction (Estimation based on the indirect measurements of the internal carotid artery velocities (ICA PSV). 1. Normal (no stenosis)=ICA PSV < 125 cm/s: ratio < 2.0: ICA EDV<40 cm/s. 2. Less than 50% stenosis=ICA PSV < 125 cm/s: ratio < 2.0: ICA EDV<40 cm/s. 3. 50 to 69% stenosis=ICA PSV of 125 to 230 cm/s: ration 2.0 ? 4.0: ICA EDV 40-100 cm/s. 4. Greater than 70% stenosis to near occlusion= ICA PSV > 230 cm/s: ratio > 4.0: ICA EDV > 100 cm/s. 5. Near occlusion= ICA PSV velocities may be low or undetectable: variable ratio and ICA EDV. 6. Total occlusion=unable to detect flow.
[2022-12-27] MEDS ORDERED: NON FORMULARY DRUG (Biotin [Biotin] 5 MG Capsule) PO SCH (09:00)
[2022-12-27] MEDS ORDERED: CYANOCOBALAMIN 500 MCG TAB PO SCH (09:00)
[2022-12-27] MEDS: HYDROcodone/APAP 10-325MG 1 EACH TAB PO SCH (09:04)
[2022-12-27] MEDS: buPROPion SR 150 MG TABLET.ER PO SCH (09:04)
[2022-12-27] MEDS: GABAPENTIN 300 MG CAP PO SCH (09:04)
[2022-12-27] MEDS: SYMBICORT 160-4.5 MCG INHALER INHALATION SCH (09:20)
[2022-12-27] MEDS: IPRATROPIUM 0.5 MG/2.5 ML NEBU INHALATION SCH (09:20)
[2022-12-27 09:41] VITALS: PULSE 84
[2022-12-27 10:10] LABS: Basophils # (A) 0.04 X 10*3/uL (0.00-0.10); Basophils % (A) 0.9 %; Eosinophils # (A) 0.11 X 10*3/uL (0.04-0.35); Eosinophils % (A) 2.4 %; HCT 38.6 % (37.2-46.3); HGB 12.6 d/dL (12.0-15.0); Lymphocytes % (A) 30.8 %; MCH 30.1 pg (27.0-32.0); MCHC 32.6 d/dL (32.0-37.0); MCV 92.3 FL (80.0-97.0); Mean Platelet Volume 9.7 FL (9.5-12.2); Monocytes # (A) 0.31 X 10*3/uL (0.20-1.00); Monocytes % (A) 6.8 %; NRBC Per 100 WBC 0 X 10*3/uL (0.00-0.01); Neutrophils # (A) 2.68 X 10*3/uL (1.80-7.70); Neutrophils % (A) 58.9 %; Platelet Count 327 X 10*3/uL (140-440); RBC 4.18 X 10*6/uL (4.10-5.20); RDW 13.2 % (11.5-14.5); WBC 4.55 X 10*3/uL (4.50-10.00)
[2022-12-27 10:21] LABS: BUN/Creat Ratio 12.56 Ratio (12.00-20.00); Blood Urea Nitrogen 11.3 mg/dL (9.0-27.0); Chloride 104 mmol/L (96-109); Glucose 54 mg/dL (70-110); Potassium 3.8 mmol/L (3.5-5.5); Sodium 139 mmol/L (135-145)
[2022-12-27 10:22] LABS: ALT 20 U/L (8-44); AST 22 U/L (13-35); Albumin 3.9 d/dL (3.8-4.9); Albumin/Globulin Ratio 2.17 Ratio (1.60-3.17); Alkaline Phosphatase 64 U/L (41-126); Calcium 9.6 mg/dL (8.7-10.3); Carbon Dioxide 22.2 mmol/L (21.6-31.8); Globulin 1.8 d/dL (1.6-3.3); Total Bilirubin 0.5 mg/dL (0.3-1.2); Total Protein 5.7 d/dL (6.2-8.2)
--- NOTE | 2022-12-27 12:52 | DS ---
DISCHARGE SUMMARY FINAL DIAGNOSES: 1. Syncope, possibly secondary to dehydration, orthostatic hypotension. 2. Acute renal failure, possibly prerenal acute tubular necrosis. 3. Elevated lactic acid, improved. 4. Hyponatremia. 5. Hypokalemia. 6. Multiple medical issues. RECOMMENDATIONS: Discharged the patient home, discharged in stable condition. Guarded prognosis. The patient is extremely keen on going home. HISTORY OF PRESENT ILLNESS: This is a 67-year-old woman with past medical history of multiple medical problems, being followed by Dr. Mujica in the outpatient, admitted with syncope. Patient was found to have acute renal failure, orthostatic hypotension suspected. The patient is seen by Cardiology and Neurology, recommended outpatient followup. 2D echo was normal. PHYSICAL EXAMINATION: VITAL SIGNS: Stable. CARDIOVASCULAR: S1, S2. ABDOMEN: Soft. NERVOUS SYSTEM: No focal deficits. Carotid ultrasound was negative. DISCHARGE MEDICATIONS: Resume the home medications. Hold losartan hydrochlorothiazide for now. Followup labs, CBC, BMP with Dr. Mujica and follow up with Cardiology and Neurology as recommended. MMODL / IJN: [id number] /
== END 2022-12-27 11:50 | disposition home or self-care (01) ==
LOC: EC 01:32 → 6NMEDSUR 04:49
PROVIDERS: ADMIT Family Medicine; ATTEND Family Medicine
DX: R55 Syncope and collapse (principal); W19.XXXA Unspecified fall, initial encounter; I95.1 Orthostatic hypotension; N17.9 Acute kidney failure, unspecified; R74.02 Elevation of levels of lactic acid dehydrogenase [LDH]; E87.1 Hypo-osmolality and hyponatremia; E87.6 Hypokalemia; F32.A Depression, unspecified; F17.210 Nicotine dependence, cigarettes, uncomplicated; Z82.49 Family history of ischemic heart disease and other diseases of the circulatory system; E78.5 Hyperlipidemia, unspecified; K21.9 Gastro-esophageal reflux disease without esophagitis; M79.7 Fibromyalgia; G89.29 Other chronic pain; M54.9 Dorsalgia, unspecified; M54.2 Cervicalgia; Z87.01 Personal history of pneumonia (recurrent); Z83.71 Family history of colonic polyps; Z98.890 Other specified postprocedural states; Z79.85 Long-term (current) use of injectable non-insulin antidiabetic drugs; Z79.899 Other long term (current) drug therapy; Z88.0 Allergy status to penicillin; Z88.8 Allergy status to other drugs, medicaments and biological substances
CPT/HCPCS: 96361 ×2; 96360; 36415; 94640 ×3; 94760 ×2; 93005; 93306; 83880; 80053 ×2; 80048; 83605; 83735; 84100; 84484; 85025 ×2; 85610; 85730; 93880; 72125; 70450; G0378 ×2; S0106 ×2

== ENCOUNTER 2023-02-05 14:30 | Emergency (ER) | payer MEDICARE, OTHER ==
[2023-02-05 14:34] VITALS: TEMP 97.1
[2023-02-05] MEDS ORDERED: SODIUM CHLORIDE 0.9% 1,000 ML IV STA ×2 (14:49→16:41)
[2023-02-05 15:12] LABS: Basophils % (A) 0 %; Eosinophils # (A) 0.2 k/uL (0-0.7); Eosinophils % (A) 1 %; HCT 43.1 % (34.0-46.0); HGB 14.2 gm/dL (11.4-16.0); Lymphocytes # (A) 1.3 k/uL (1.0-4.8); Lymphocytes % (A) 13 %; MCH 29.8 pg (25.0-35.0); MCV 90.4 fL (80.0-100.0); Mean Platelet Volume 7.5; Monocytes # (A) 0.4 k/uL (0-1.0); Monocytes % (A) 4 %; Neutrophils # (A) 8.2 k/uL (1.3-7.7); Neutrophils % (A) 81 %; Platelet Count 478 k/uL (150-450); RBC 4.76 m/uL (3.80-5.40); WBC 10.2 k/uL (3.8-10.6)
--- NOTE | 2023-02-05 15:15 | ED ---
Weakness HPI - General Chief complaint: Weakness Stated complaint: weakness/confusion Time Seen by Provider: 02/05/23 14:39 Source: patient, RN notes reviewed Mode of arrival: wheelchair Limitations: no limitations - History of Present Illness Initial comments: This is a 67-year-old female who presents to the emergency department for altered mental status. She called her neighbors today and said that she was very confused and weak, and her neighbor brought her to the emergency department. Her neighbor states that this happened approximately one month ago and she had severely low potassium levels at that time. Additionally, her neighbor states that she uses THC religiously and in significant quantities. She largely consumes these in gummy form. They state that they believe that she may have a " wish". Patient is currently unable to provide her name or location. However, she is alert. Her daughter also called the hospital and states that he has a substantial history of drug and alcohol abuse, and believes that is also contributing to her presentation. MD Complaint: generalized weakness - Related Data Home Medications Medication Instructions Recorded Confirmed Fish Oil/Dha/Epa [Fish Oil 1,200 2 cap PO HS 12/09/18 02/05/23 mg Fish Oil] Biotin 5 mg PO DAILY 12/26/22 02/05/23 Cholecalciferol (Vitamin D3) 75 mcg PO HS 12/26/22 02/05/23 [Vitamin D3 (3000 Iu)] Citalopram Hydrobromide 40 mg PO DIRECTED 12/26/22 02/05/23 [Citalopram HBr] Cyanocobalamin (Vitamin B-12) 1,000 mcg PO DAILY 12/26/22 02/05/23 [Vitamin B-12] Dextroamphetamine/Amphetamine 20 mg PO BID 12/26/22 02/05/23 [Adderall] Dulaglutide [Trulicity] 1.5 mg SQ TH 12/26/22 02/05/23 Fluticasone/Umeclidin/Vilanter 1 puff INHALATION RT-DAILY@1200 12/26/22 02/05/23 [Trelegy Ellipta 200-62.5-25] Gabapentin [Neurontin] 600 mg PO TID 12/26/22 02/05/23 Glycopyrrolate 1 mg PO TID 12/26/22 02/05/23 HYDROcodone/APAP 10-325MG [[place] 1 tab PO TID 12/26/22 02/05/23 10-325] Losartan Potassium [Cozaar] 25 mg PO HS 12/26/22 02/05/23 Lovastatin [Mevacor] 20 mg PO HS 12/26/22 02/05/23 Omeprazole [PriLOSEC] 40 mg PO DAILY 12/26/22 02/05/23 buPROPion SR [Wellbutrin SR] 150 mg PO BID 12/26/22 02/05/23 traZODone HCL 200 mg PO DIRECTED 12/26/22 02/05/23 valACYclovir HCL [Valtrex] 1,000 mg PO DAILY PRN 12/26/22 02/05/23 Budesonide [Pulmicort] 0.5 mg INHALATION DIRECTED 02/05/23 02/05/23 Citalopram Hydrobromide [CeleXA] 20 mg PO DIRECTED 02/05/23 02/05/23 Ipratropium-Albuterol Nebulize 3 ml INHALATION DIRECTED 02/05/23 02/05/23 [Duoneb 0.5 mg-3 mg/3 ml Soln] Midodrine [ProAmatine] 5 mg PO DIRECTED 02/05/23 02/05/23 Previous Rx's Medication Instructions Recorded cefUROXime axetiL [Ceftin] 500 mg PO BID 7 Days #14 tab 02/05/23 Allergies Allergy/AdvReac Type Severity Reaction Status Date / Time amoxicillin [From Augmentin] AdvReac Nausea & Verified 02/05/23 16:34 Vomiting clavulanic acid AdvReac Nausea & Verified 02/05/23 16:34 [From Augmentin] Vomiting Review of Systems ROS Statement: Those systems with pertinent positive or pertinent negative responses have been documented in the HPI. ROS Other: All systems not noted in ROS Statement are negative. Past Medical History Past Medical History: Hyperlipidemia Additional Past Medical History / Comment(s): HAD PNEUMONIA ABOUT 2 WEEKS AGO History of Any Multi-Drug Resistant Organisms: None Reported Past Surgical History: Back Surgery Additional Past Surgical History / Comment(s): L4-L5 decompression Past Anesthesia/Blood Transfusion Reactions: No Reported Reaction Past Psychological History: Depression Smoking Status: Current every day smoker Past Alcohol Use History: None Reported Past Drug Use History: None Reported - Past Family History Mother Family Medical History: Myocardial Infarction (OK) Additional Family Medical History / Comment(s): Mother at age 78 with history of pneumonia, 3 vessel CABG. Father Additional Family Medical History / Comment(s): Father at age 83. Vital history is unknown as he never went to the doctor. Brother(s) Additional Family Medical History / Comment(s): Patient has 2 brothers and one has known spinal stenosis. Patient has 2 sisters and one has Crohn's and one has Edvin-Vieira. Patient has one daughter with Crohn's disease. General Exam Limitations: no limitations General appearance: alert Head exam: Present: atraumatic, normocephalic, normal inspection Eye exam: Present: normal appearance, PERRL, EOMI. Absent: scleral icterus, conjunctival injection, periorbital swelling Respiratory exam: Present: normal lung sounds bilaterally. Absent: respiratory distress, wheezes, rales, rhonchi, stridor Cardiovascular Exam: Present: regular rate, normal rhythm, normal heart sounds. Absent: systolic murmur, diastolic murmur, rubs, gallop, clicks Neurological exam: Present: alert Skin exam: Present: warm, dry, intact, normal color. Absent: rash Course Vital Signs 02/05/23 02/05/23 02/05/23 14:31 14:45 14:49 Temperature 97.1 F L Pulse Rate 105 H 93 Respiratory 20 21 Rate Blood Pressure 112/65 127/84 O2 Sat by Pulse 99 100 Oximetry 02/05/23 02/05/23 02/05/23 15:00 15:30 15:55 Temperature Pulse Rate 92 85 87 Respiratory 14 12 18 Rate Blood Pressure 127/84 121/81 110/67 O2 Sat by Pulse 99 98 Oximetry 02/05/23 02/05/23 02/05/23 16:00 16:30 17:00 Temperature Pulse Rate 92 92 86 Respiratory 20 20 16 Rate Blood Pressure 110/67 97/51 114/67 O2 Sat by Pulse 100 Oximetry 02/05/23 02/05/23 02/05/23 17:30 18:00 18:30 Temperature Pulse Rate 81 83 82 Respiratory 14 18 Rate Blood Pressure 112/62 119/70 118/68 O2 Sat by Pulse Oximetry Medical Decision Making - Medical Decision Making This is a 67-year-old female who presents to the emergency department for altered mental status. Was pt. sent in by a medical professional or institution? @ -No Did you speak to anyone other than the patient for history? @ -Yes, her neighbor and daughter provided the majority of the information due to the patient's altered state. Did you review nursing and triage notes? @ -Yes, and I agree, it is accurate with regards to the patient's symptoms. Were old charts reviewed? @ -No Differential Diagnosis? @ -Differential Altered Mental Status: Hypoglycemia, DKA, hypercapnia, ETOH, overdose, CO poisoning, trauma, myxedema coma, HTN encephalopathy, infection, encephalitis, psychosis, intercranial hemorrhage, hepatic encephalopathy, meningitis, CVA, this is not meant to be an all-inclusive list EKG interpreted by me (3pts min.)? @ -EKG interpreted by me demonstrating the following: Sinus rhythm. Ventricular rate 96 bpm, FL interval 140 ms, QRS duration 93 ms, QTC 447 ms. X-rays interpreted by me (1pt min.)? @ -Not obtained CT interpreted by me (1pt min.)? @ -Not obtained U/S interpreted by me (1pt. min.)? @ -Not obtained What testing was considered but not performed? (CT, X-rays, U/S, labs)? Why? @ -None What meds were considered but not given? Why? @ -None Did you discuss the management of the patient with other professionals? @ -No Did you reconcile home meds? @ -No Was smoking cessation discussed for >3mins.? @ -No Was critical care preformed (if so, how long)? @ -No Were there social determinants of health that impacted care today? How? (Homelessness, low income, unemployed, alcoholism, drug addiction, transportation, low edu. Level, literacy, decrease access to med. care, half-way, rehab)? @ -No Was there de-escalation of care discussed even if they declined? (Discuss DNR or withdrawal of care, Hospice)? @ -No What co-morbidities impacted this encounter? (DM, HTN, Smoking, COPD, CAD, Cancer, CVA, Hep., AIDS, mental health diagnosis, sleep apnea, morbid obesity)? @ -HLD, substance abuse Was patient admitted / discharged? @ -Discharged. Lab work obtained revealing signs of dehydration and hypokalemia. Urinalysis is positive for a UTI and UDS positive for opiates, marijuana, and amphetamines. She was given 40 mEq of K-dur and 2L of IV fluids. Patient improved remarkably while in the emergency department. She went from being altered to alert and oriented x4 and felt comfortable with discharge home. She was given a dose of Ceftriaxone in the emergency department. Urine sent for culture. Prescription for Ceftin provided with dosing instructions reviewed. This patient's presentation is likely related to over consumption of marijuana and other illicit substances, as reported by her neighbor and daughter. Patient is instructed to reduce the amount of THC and other substances that she consumes. She will otherwise follow up with her PCP. Undiagnosed new problem with uncertain prognosis? @ -None Drug Therapy requiring intensive monitoring for toxicity (Heparin, Nitro, Insulin, Cardizem)? @ -None Were any procedures done? @ -None Diagnosis/symptom? @ -UTI, hypokalemia, AMS Acute, or Chronic, or Acute on Chronic? @ -Acute Uncomplicated (without systemic symptoms) or Complicated (systemic symptoms)? @ -Uncomplicated Side effects of treatment? @ -None Exacerbation, Progression, or Severe Exacerbation] @ -Not applicable Poses a threat to life or bodily function? @ -No Return precautions reviewed in depth, the patient is instructed to return to the emergency department with any new, worsening, or concerning symptoms. Patient verbalized understanding. This case was discussed in detail with the attending ED physician, Dr. Teague. Presentation, findings, and treatment plan discussed in detail as well. - Lab Data Result diagrams: 02/05/23 14:58 02/05/23 14:58 Lab Results 02/05/23 02/05/23 02/05/23 Range/Units 14:58 14:58 14:58 WBC 10.2 (3.8-10.6) k/uL RBC 4.76 (3.80-5.40) m/uL Hgb 14.2 (11.4-16.0) gm/dL Hct 43.1 (34.0-46.0) % MCV 90.4 (80.0-100.0) fL MCH 29.8 (25.0-35.0) pg MCHC 33.0 (31.0-37.0) g/dL RDW 14.0 (11.5-15.5) % Plt Count 478 H (150-450) k/uL MPV 7.5 Neutrophils % 81 % Lymphocytes % 13 % Monocytes % 4 % Eosinophils % 1 % Basophils % 0 % Neutrophils # 8.2 H (1.3-7.7) k/uL Lymphocytes # 1.3 (1.0-4.8) k/uL Monocytes # 0.4 (0-1.0) k/uL Eosinophils # 0.2 (0-0.7) k/uL Basophils # 0.0 (0-0.2) k/uL PT 10.2 (9.0-12.0) sec INR 1.0 (<1.2) APTT 25.0 (22.0-30.0) sec Sodium 132 L (137-145) mmol/L Potassium 2.9 L (3.5-5.1) mmol/L Chloride 94 L (98-107) mmol/L Carbon Dioxide 24 (22-30) mmol/L Anion Gap 14 mmol/L BUN 23 H (7-17) mg/dL Creatinine 1.46 H (0.52-1.04) mg/dL Est GFR (CKD-EPI)AfAm 43 (>60 ml/min/1.73 sqM) Est GFR (CKD-EPI)NonAf 38 (>60 ml/min/1.73 sqM) Glucose 88 (74-99) mg/dL Calcium 10.1 (8.4-10.2) mg/dL Total Bilirubin 0.8 (0.2-1.3) mg/dL AST 29 (14-36) U/L ALT 21 (4-34) U/L Alkaline Phosphatase 94 (38-126) U/L Troponin I (0.000-0.034) ng/mL Total Protein 7.1 (6.3-8.2) g/dL Albumin 4.3 (3.5-5.0) g/dL Urine Color Urine Appearance (Clear) Urine pH (5.0-8.0) Ur Specific [place] (1.001-1.035) Urine Protein (Negative) Urine Glucose (UA) (Negative) Urine Ketones (Negative) Urine Blood (Negative) Urine Nitrite (Negative) Urine Bilirubin (Negative) Urine Urobilinogen (<2.0) mg/dL Ur Leukocyte Esterase (Negative) Urine RBC (0-5) /hpf Urine WBC (0-5) /hpf Urine WBC Clumps (None) /hpf Ur Squamous Epith Cells (0-4) /hpf Urine Bacteria (None) /hpf Urine Mucus (None) /hpf Urine Opiates Screen (NotDetected) Ur Oxycodone Screen (NotDetected) Urine Methadone Screen (NotDetected) Ur Propoxyphene Screen (NotDetected) Ur Barbiturates Screen (NotDetected) U Tricyclic Antidepress (NotDetected) Ur Phencyclidine Scrn (NotDetected) Ur Amphetamines Screen (NotDetected) U Methamphetamines Scrn (NotDetected) U Benzodiazepines Scrn (NotDetected) Urine Cocaine Screen (NotDetected) U Marijuana (THC) Screen (NotDetected) Serum Alcohol <10 mg/dL 02/05/23 02/05/23 Range/Units 14:58 19:13 WBC (3.8-10.6) k/uL RBC (3.80-5.40) m/uL Hgb (11.4-16.0) gm/dL Hct (34.0-46.0) % MCV (80.0-100.0) fL MCH (25.0-35.0) pg MCHC (31.0-37.0) g/dL RDW (11.5-15.5) % Plt Count (150-450) k/uL MPV Neutrophils % % Lymphocytes % % Monocytes % % Eosinophils % % Basophils % % Neutrophils # (1.3-7.7) k/uL Lymphocytes # (1.0-4.8) k/uL Monocytes # (0-1.0) k/uL Eosinophils # (0-0.7) k/uL Basophils # (0-0.2) k/uL PT (9.0-12.0) sec INR (<1.2) APTT (22.0-30.0) sec Sodium (137-145) mmol/L Potassium (3.5-5.1) mmol/L Chloride (98-107) mmol/L Carbon Dioxide (22-30) mmol/L Anion Gap mmol/L BUN (7-17) mg/dL Creatinine (0.52-1.04) mg/dL Est GFR (CKD-EPI)AfAm (>60 ml/min/1.73 sqM) Est GFR (CKD-EPI)NonAf (>60 ml/min/1.73 sqM) Glucose (74-99) mg/dL Calcium (8.4-10.2) mg/dL Total Bilirubin (0.2-1.3) mg/dL AST (14-36) U/L ALT (4-34) U/L Alkaline Phosphatase (38-126) U/L Troponin I <0.012 (0.000-0.034) ng/mL Total Protein (6.3-8.2) g/dL Albumin (3.5-5.0) g/dL Urine Color Light Yellow Urine Appearance Turbid H (Clear) Urine pH 6.0 (5.0-8.0) Ur Specific [place] 1.015 (1.001-1.035) Urine Protein Trace H (Negative) Urine Glucose (UA) Negative (Negative) Urine Ketones Negative (Negative) Urine Blood Small H (Negative) Urine Nitrite Positive H (Negative) Urine Bilirubin Negative (Negative) Urine Urobilinogen <2.0 (<2.0) mg/dL Ur Leukocyte Esterase Large H (Negative) Urine RBC 112 H (0-5) /hpf Urine WBC >182 H (0-5) /hpf Urine WBC Clumps Many H (None) /hpf Ur Squamous Epith Cells 1 (0-4) /hpf Urine Bacteria Moderate H (None) /hpf Urine Mucus Rare H (None) /hpf Urine Opiates Screen Detected H (NotDetected) Ur Oxycodone Screen Not Detected (NotDetected) Urine Methadone Screen Not Detected (NotDetected) Ur Propoxyphene Screen Not Detected (NotDetected) Ur Barbiturates Screen Not Detected (NotDetected) U Tricyclic Antidepress Not Detected (NotDetected) Ur Phencyclidine Scrn Not Detected (NotDetected) Ur Amphetamines Screen Detected H (NotDetected) U Methamphetamines Scrn Not Detected (NotDetected) U Benzodiazepines Scrn Not Detected (NotDetected) Urine Cocaine Screen Not Detected (NotDetected) U Marijuana (THC) Screen Detected H (NotDetected) Serum Alcohol mg/dL Disposition Clinical Impression: UTI (urinary tract infection), Altered mental status, Hypokalemia Disposition: HOME SELF-CARE Instructions (If sedation given, give patient instructions): Urinary Tract Infection in Women (ED), Altered Mental Status (ED) Additional Instructions: Return to the emergency department with any new, worsening, or concerning symptoms. Take the antibiotic as prescribed for 7 days. Make sure that you drink plenty of fluids and remain well-hydrated. Follow up with your primary care provider in 1-2 days. Prescriptions: cefUROXime axetiL [Ceftin] 500 mg PO BID 7 Days #14 tab Is patient prescribed a controlled substance at d/c from ED?: No Referrals: Raheem Mujica MD [Primary Care Provider] - 1-2 days
[2023-02-05 15:22] LABS: ALT 21 U/L (4-34); AST 29 U/L (14-36); African American GFR (CKD) 43 (>60 ml/min/1.73 sqM); Albumin 4.3 g/dL (3.5-5.0); Alcohol <10 mg/dL; Alkaline Phosphatase 94 U/L (38-126); Anion Gap 14 mmol/L; Blood Urea Nitrogen 23 mg/dL (7-17); Calcium 10.1 mg/dL (8.4-10.2); Carbon Dioxide 24 mmol/L (22-30); Chloride 94 mmol/L (98-107); Glucose 88 mg/dL (74-99); Non-African American GFR(CKD) 38 (>60 ml/min/1.73 sqM); Potassium 2.9 mmol/L (3.5-5.1); Sodium 132 mmol/L (137-145); Total Bilirubin 0.8 mg/dL (0.2-1.3); Total Protein 7.1 g/dL (6.3-8.2)
[2023-02-05 15:29] LABS: Prothrombin Time 10.2 sec (9.0-12.0)
[2023-02-05] MEDS ORDERED: POTASSIUM CHLORIDE ER 20 MEQ TAB.ER PO STA (15:50)
[2023-02-05 16:14] VITALS: RESP 18
[2023-02-05 18:48] VITALS: BP 118/68; PULSE 82
[2023-02-05 19:46] LABS: Appearance,Urine Turbid (Clear); Bacteria,Urine Moderate /hpf; Bilirubin,Urine Negative (Negative); Blood,Urine Small (Negative); Color,Urine Light Yellow; Glucose,Urine (UA) Negative (Negative); Ketones,Urine Negative (Negative); Leukocyte Esterase,Urine Large (Negative); Mucus,Urine Rare /hpf; Nitrite,Urine Positive (Negative); Protein,Urine Trace (Negative); RBC,Urine 112 /hpf (0-5); Specific Gravity,Urine 1.015 (1.001-1.035); Squamous Epithelial Cell,Urine 1 /hpf (0-4); Urobilinogen,Urine <2.0 mg/dL (<2.0); WBC,Urine >182 /hpf (0-5)
[2023-02-05] MEDS ORDERED: cefTRIAXone IN SWFI 1,000 MG/10 ML SYRINGE IVP STA (19:46)
[2023-02-05 20:11] LABS: Amphetamine Screen,Urine Detected (NotDetected); Barbiturate Screen,Urine Not Detected (NotDetected); Benzodiazepines Screen,Urine Not Detected (NotDetected); Cocaine Screen,Urine Not Detected (NotDetected); Methadone Screen, Urine Not Detected (NotDetected); Opiate Screen,Urine Detected (NotDetected); Oxycodone Screen, Urine Not Detected (NotDetected); Phencyclidine Screen,Urine Not Detected (NotDetected); Tricyclic Antidepressant,Urine Not Detected (NotDetected); Urn Cannabinoid Scrn Detected (NotDetected)
== END 2023-02-05 20:39 | disposition home or self-care (01) ==
LOC: EC 14:30
DX: N39.0 Urinary tract infection, site not specified (principal); E87.6 Hypokalemia; R41.82 Altered mental status, unspecified; B96.20 Unspecified Escherichia coli [E. coli] as the cause of diseases classified elsewhere; E78.5 Hyperlipidemia, unspecified; F32.A Depression, unspecified; F17.200 Nicotine dependence, unspecified, uncomplicated; Z88.0 Allergy status to penicillin; Z88.1 Allergy status to other antibiotic agents; Z79.899 Other long term (current) drug therapy
CPT/HCPCS: 36415; 93005; 80053; 84484; 85025; 85610; 85730; 81001; 80306; 80320; 87086; 87077; 87186; 99285; 96374; 96361 ×3; J0696

== ENCOUNTER 2023-02-25 18:27 | Emergency (ER) | payer MEDICARE, OTHER ==
[2023-02-25 18:41] VITALS: TEMP 98.6
[2023-02-25 18:59] LABS: Basophils % (A) 0 %; Eosinophils # (A) 0.2 k/uL (0-0.7); Eosinophils % (A) 3 %; HGB 13.4 gm/dL (11.4-16.0); Lymphocytes # (A) 1.8 k/uL (1.0-4.8); Lymphocytes % (A) 23 %; MCH 30.7 pg (25.0-35.0); MCHC 33.6 g/dL (31.0-37.0); MCV 91.5 fL (80.0-100.0); Mean Platelet Volume 7.9; Monocytes # (A) 0.4 k/uL (0-1.0); Monocytes % (A) 5 %; Neutrophils # (A) 5.1 k/uL (1.3-7.7); Neutrophils % (A) 67 %; Platelet Count 416 k/uL (150-450); RBC 4.37 m/uL (3.80-5.40); WBC 7.6 k/uL (3.8-10.6)
[2023-02-25 19:16] LABS: Partial Thromboplastin Time 24.5 sec (22.0-30.0); Prothrombin Time 10.1 sec (9.0-12.0)
[2023-02-25 19:23] LABS: ALT 19 U/L (4-34); AST 31 U/L (14-36); African American GFR (CKD) 55 (>60 ml/min/1.73 sqM); Albumin 3.9 g/dL (3.5-5.0); Alkaline Phosphatase 74 U/L (38-126); Anion Gap 14 mmol/L; Blood Urea Nitrogen 16 mg/dL (7-17); Calcium 10.4 mg/dL (8.4-10.2); Carbon Dioxide 21 mmol/L (22-30); Chloride 96 mmol/L (98-107); Glucose 68 mg/dL (74-99); Magnesium 1.6 mg/dL (1.6-2.3); Non-African American GFR(CKD) 48 (>60 ml/min/1.73 sqM); Potassium 3.1 mmol/L (3.5-5.1); Sodium 131 mmol/L (137-145); Total Bilirubin 0.7 mg/dL (0.2-1.3); Total Protein 6.6 g/dL (6.3-8.2)
--- NOTE | 2023-02-25 19:45 | XR ---
EXAMINATION TYPE: XR chest 2V DATE OF EXAM: 02/25/2023 COMPARISON: 04/20/2019 INDICATION: Syncope TECHNIQUE: Frontal and lateral views of the chest are obtained. FINDINGS: The heart size is normal. The pulmonary vasculature is normal. The lungs are clear. IMPRESSION: 1. No acute pulmonary process.
--- NOTE | 2023-02-25 20:07 | ED ---
Dizziness HPI - General Source: patient Mode of arrival: ambulatory Limitations: no limitations <Luana Verduzco - Last Filed: 02/25/23 20:04> - History of Present Illness Complaint: lightheadedness -: hour(s) Timing: sudden onset Description: lightheadedness Improves With: nothing Worsens With: nothing Associated Symptoms: syncope <CaseyandrewBrandon - Last Filed: 03/07/23 07:50> - General Chief Complaint: Syncope Stated Complaint: Syncope - History of Present Illness Initial Comments: QUick Note Completed by YVES Fowler Patient is a 67-year-old female who complains of syncopal episodes that started today. Patient states that every time she stands up she passed out. Has had 2 episodes today. Denies any chest pain cough congestion fever or tarry stools but no stool, abdominal pain or hemoptysis. States she just feels off. (Luana Verduzco) - Related Data Home Medications Medication Instructions Recorded Confirmed Fish Oil/Dha/Epa [Fish Oil 1,200 2 cap PO HS 12/09/18 02/05/23 mg Fish Oil] Biotin 5 mg PO DAILY 12/26/22 02/05/23 Cholecalciferol (Vitamin D3) 75 mcg PO HS 12/26/22 02/05/23 [Vitamin D3 (3000 Iu)] Citalopram Hydrobromide 40 mg PO DIRECTED 12/26/22 02/05/23 [Citalopram HBr] Cyanocobalamin (Vitamin B-12) 1,000 mcg PO DAILY 12/26/22 02/05/23 [Vitamin B-12] Dextroamphetamine/Amphetamine 20 mg PO BID 12/26/22 02/05/23 [Adderall] Dulaglutide [Trulicity] 1.5 mg SQ TH 12/26/22 02/05/23 Fluticasone/Umeclidin/Vilanter 1 puff INHALATION RT-DAILY@1200 12/26/22 02/05/23 [Trelegy Ellipta 200-62.5-25] Gabapentin [Neurontin] 600 mg PO TID 12/26/22 02/05/23 Glycopyrrolate 1 mg PO TID 12/26/22 02/05/23 HYDROcodone/APAP 10-325MG [[place] 1 tab PO TID 12/26/22 02/05/23 10-325] Losartan Potassium [Cozaar] 25 mg PO HS 12/26/22 02/05/23 Lovastatin [Mevacor] 20 mg PO HS 12/26/22 02/05/23 Omeprazole [PriLOSEC] 40 mg PO DAILY 12/26/22 02/05/23 buPROPion SR [Wellbutrin SR] 150 mg PO BID 12/26/22 02/05/23 traZODone HCL 200 mg PO DIRECTED 12/26/22 02/05/23 valACYclovir HCL [Valtrex] 1,000 mg PO DAILY PRN 12/26/22 02/05/23 Budesonide [Pulmicort] 0.5 mg INHALATION DIRECTED 02/05/23 02/05/23 Citalopram Hydrobromide [CeleXA] 20 mg PO DIRECTED 02/05/23 02/05/23 Ipratropium-Albuterol Nebulize 3 ml INHALATION DIRECTED 02/05/23 02/05/23 [Duoneb 0.5 mg-3 mg/3 ml Soln] Midodrine [ProAmatine] 5 mg PO DIRECTED 02/05/23 02/05/23 Previous Rx's Medication Instructions Recorded cefUROXime axetiL [Ceftin] 500 mg PO BID 7 Days #14 tab 02/05/23 Allergies Allergy/AdvReac Type Severity Reaction Status Date / Time amoxicillin [From Augmentin] AdvReac Nausea & Verified 02/05/23 16:34 Vomiting clavulanic acid AdvReac Nausea & Verified 02/05/23 16:34 [From Augmentin] Vomiting Review of Systems ROS Other: All systems not noted in ROS Statement are negative. <Luana Verduzco - Last Filed: 02/25/23 20:04> ROS Other: All systems not noted in ROS Statement are negative. Constitutional: Denies: fever, chills, weakness Respiratory: Denies: cough, dyspnea Cardiovascular: Reports: syncope. Denies: chest pain, palpitations Gastrointestinal: Denies: abdominal pain, nausea, vomiting, diarrhea Genitourinary: Denies: dysuria, hematuria Musculoskeletal: Denies: back pain Skin: Denies: rash Neurological: Denies: headache, weakness <Brandon Teague - Last Filed: 03/07/23 07:50> ROS Statement: Those systems with pertinent positive or pertinent negative responses have been documented in the HPI. Past Medical History Past Medical History: Hyperlipidemia Additional Past Medical History / Comment(s): HAD PNEUMONIA ABOUT 2 WEEKS AGO History of Any Multi-Drug Resistant Organisms: None Reported Past Surgical History: Back Surgery, Section Additional Past Surgical History / Comment(s): L4-L5 decompression Past Anesthesia/Blood Transfusion Reactions: No Reported Reaction Past Psychological History: Depression Smoking Status: Current every day smoker Past Alcohol Use History: None Reported Past Drug Use History: None Reported - Past Family History Mother Family Medical History: Myocardial Infarction ([place]) Additional Family Medical History / Comment(s): Mother at age 78 with history of pneumonia, 3 vessel CABG. Father Additional Family Medical History / Comment(s): Father at age 83. Vital history is unknown as he never went to the doctor. Brother(s) Additional Family Medical History / Comment(s): Patient has 2 brothers and one has known spinal stenosis. Patient has 2 sisters and one has Crohn's and one has Edvin-Vieira. Patient has one daughter with Crohn's disease. <Luana Verduzco - Last Filed: 02/25/23 20:04> General Exam Limitations: no limitations <Luana Verduzco - Last Filed: 02/25/23 20:04> Limitations: no limitations General appearance: alert, in no apparent distress Head exam: Present: atraumatic, normocephalic Eye exam: Present: normal appearance, PERRL, EOMI. Absent: scleral icterus, conjunctival injection, nystagmus ENT exam: Present: normal oropharynx Neck exam: Present: normal inspection, full ROM. Absent: tenderness Respiratory exam: Present: normal lung sounds bilaterally. Absent: respiratory distress, wheezes, rales, rhonchi, stridor Cardiovascular Exam: Present: regular rate, normal rhythm, normal heart sounds. Absent: systolic murmur, diastolic murmur, rubs, gallop GI/Abdominal exam: Present: soft. Absent: distended, tenderness, guarding, rebound, mass Extremities exam: Present: normal inspection, normal capillary refill. Absent: pedal edema, calf tenderness Back exam: Present: normal inspection. Absent: CVA tenderness (R), CVA tenderness (L) Neurological exam: Present: alert, oriented X3, CN II-XII intact. Absent: motor sensory deficit Skin exam: Present: warm, dry, intact, normal color. Absent: rash <Brandon Teague - Last Filed: 03/07/23 07:50> - General Exam Comments Initial Comments: Visual Physical Exam Vital signs reviewed General: Well-appearing, nontoxic, no acute distress. Head: Normocephalic, atraumatic Eyes: PERRLA, EOMI ENT: Airway patent Chest: Nonlabored breathing Skin: No visual rash, normal skin tone Neuro: Alert and oriented 3 Musculoskeletal: No gross abnormalities (Luana Verduzco) Course Vital Signs 02/25/23 02/25/23 02/26/23 18:32 22:37 00:44 Temperature 98.6 F Pulse Rate 100 84 94 Respiratory 20 16 16 Rate Blood Pressure 92/62 91/63 97/69 O2 Sat by Pulse 98 99 99 Oximetry Medical Decision Making - Lab Data Result diagrams: 02/25/23 18:49 02/25/23 18:49 <Luana Verduzco - Last Filed: 02/25/23 20:04> - Lab Data Result diagrams: 02/25/23 22:25 02/25/23 22:25 <Brandon Teague - Last Filed: 03/07/23 07:50> - Medical Decision Making Quick note portion completed by YVES Fowler (Luana Verduzco) The patient had chest x-ray which I interpreted as negative for acute infiltrate, pneumothorax, congestive heart failure The patient had CT of the brain which I interpreted as negative for acute intracranial hemorrhage, acute bony injury. Was pt. sent in by a medical professional or institution (, PA, FUNERAL SALES MANAGER, urgent care, hospital, or jail...) When possible be specific @ -[No] Did you speak to anyone other than the patient for history (EMS, parent, family, police, friend...)? What history was obtained from this source @ -[No] Did you review nursing and triage notes (agree or disagree)? Why? @ -[I reviewed and agree with nursing and triage notes] Were old charts reviewed (outside hosp., previous admission, EMS record, old EKG, old radiological studies, urgent care reports/EKG's, jail records)? Report findings @ -[No old charts were reviewed] Differential Diagnosis (chest pain, altered mental status, abdominal pain women, abdominal pain men, vaginal bleeding, weakness, fever, dyspnea, syncope, headache, dizziness, GI bleed, back pain, seizure, CVA, palpatations, mental health, musculoskeletal)? @ -[Differential Syncope: Valvular disease, hypertrophic cardiomyopathy, pulmonary embolism, tamponade, tachycardia, bradycardia, [place], hypovolemia, hemorrhage, dissection, anemia, intracranial hemorrhage, seizure, hypoglycemia, carbon monoxide poisoning, this is not meant to be an all-inclusive list. EKG interpreted by me (3pts min.). @ -[I interpreted as above X-rays interpreted by me (1pt min.). @ -[I interpreted as above CT interpreted by me (1pt min.). @ -[I interpreted as above U/S interpreted by me (1pt. min.). @ -[None done] What testing was considered but not performed or refused? (CT, X-rays, U/S, labs)? Why? @ -[None] What meds were considered but not given or refused? Why? @ -[None] Did you discuss the management of the patient with other professionals (professionals i.e. , PA, FUNERAL SALES MANAGER, lab, RT, psych nurse, group social worker, day habilitation supervisor, teacher, data officer, case filler)? Give summary @ -[No] Was smoking cessation discussed for >3mins.? @ -[No] Was critical care preformed (if so, how long)? @ -[No] Were there social determinants of health that impacted care today? How? (Homelessness, low income, unemployed, alcoholism, drug addiction, transportation, low edu. Level, literacy, decrease access to med. care, care home, rehab)? @ -[No] Was there de-escalation of care discussed even if they declined (Discuss DNR or withdrawal of care, Hospice)? DNR status @ -[No] What co-morbidities impacted this encounter? (DM, HTN, Smoking, COPD, CAD, Cancer, CVA, ARF, Chemo, Hep., AIDS, mental health diagnosis, sleep apnea, morbid obesity)? @ -[None] Was patient admitted / discharged? Hospital course, mention meds given and route, prescriptions, significant lab abnormalities, going to OR and other pertinent info. @ -[hospital course] Undiagnosed new problem with uncertain prognosis? @ -[No] Drug Therapy requiring intensive monitoring for toxicity (Heparin, Nitro, Insulin, Cardizem)? @ -[No] Were any procedures done? @ -[No] Diagnosis/symptom? @ -[Acute syncopal episode Acute, or Chronic, or Acute on Chronic? @ -[Acute Uncomplicated (without systemic symptoms) or Complicated (systemic symptoms)? @ -Uncomplicated Side effects of treatment? @ -[No] Exacerbation, Progression, or Severe Exacerbation? @ -[No] Poses a threat to life or bodily function? How? (Chest pain, [place], [place], pneumonia, PE, COPD, DKA, ARF, appy, cholecystitis, CVA, Diverticulitis, Homicidal, Suicidal, threat to staff... and all critical care pts) @ -[No] (Brandon Teague) - Lab Data Lab Results 02/25/23 02/25/23 02/25/23 Range/Units 18:49 18:49 18:49 WBC 7.6 (3.8-10.6) k/uL RBC 4.37 (3.80-5.40) m/uL Hgb 13.4 (11.4-16.0) gm/dL Hct 40.0 (34.0-46.0) % MCV 91.5 (80.0-100.0) fL MCH 30.7 (25.0-35.0) pg MCHC 33.6 (31.0-37.0) g/dL RDW 15.0 (11.5-15.5) % Plt Count 416 (150-450) k/uL MPV 7.9 Neutrophils % 67 % Lymphocytes % 23 % Monocytes % 5 % Eosinophils % 3 % Basophils % 0 % Neutrophils # 5.1 (1.3-7.7) k/uL Lymphocytes # 1.8 (1.0-4.8) k/uL Monocytes # 0.4 (0-1.0) k/uL Eosinophils # 0.2 (0-0.7) k/uL Basophils # 0.0 (0-0.2) k/uL PT 10.1 (9.0-12.0) sec INR 1.0 (<1.2) APTT 24.5 (22.0-30.0) sec Sodium 131 L (137-145) mmol/L Potassium 3.1 L (3.5-5.1) mmol/L Chloride 96 L (98-107) mmol/L Carbon Dioxide 21 L (22-30) mmol/L Anion Gap 14 mmol/L BUN 16 (7-17) mg/dL Creatinine 1.19 H (0.52-1.04) mg/dL Est GFR (CKD-EPI)AfAm 55 (>60 ml/min/1.73 sqM) Est GFR (CKD-EPI)NonAf 48 (>60 ml/min/1.73 sqM) Glucose 68 L (74-99) mg/dL Calcium 10.4 H (8.4-10.2) mg/dL Magnesium 1.6 (1.6-2.3) mg/dL Total Bilirubin 0.7 (0.2-1.3) mg/dL AST 31 (14-36) U/L ALT 19 (4-34) U/L Alkaline Phosphatase 74 (38-126) U/L Troponin I (0.000-0.034) ng/mL Total Protein 6.6 (6.3-8.2) g/dL Albumin 3.9 (3.5-5.0) g/dL Urine Color Urine Appearance (Clear) Urine pH (5.0-8.0) Ur Specific [place] (1.001-1.035) Urine Protein (Negative) Urine Glucose (UA) (Negative) Urine Ketones (Negative) Urine Blood (Negative) Urine Nitrite (Negative) Urine Bilirubin (Negative) Urine Urobilinogen (<2.0) mg/dL Ur Leukocyte Esterase (Negative) Urine RBC (0-5) /hpf Urine WBC (0-5) /hpf Ur Squamous Epith Cells (0-4) /hpf Hyaline Casts (0-2) /lpf Urine Mucus (None) /hpf 02/25/23 02/25/23 02/25/23 Range/Units 18:49 22:25 22:25 WBC 7.0 (3.8-10.6) k/uL RBC 4.05 (3.80-5.40) m/uL Hgb 12.8 (11.4-16.0) gm/dL Hct 37.5 (34.0-46.0) % MCV 92.4 (80.0-100.0) fL MCH 31.6 (25.0-35.0) pg MCHC 34.2 (31.0-37.0) g/dL RDW 14.8 (11.5-15.5) % Plt Count 371 (150-450) k/uL MPV 7.3 Neutrophils % 67 % Lymphocytes % 23 % Monocytes % 6 % Eosinophils % 3 % Basophils % 0 % Neutrophils # 4.7 (1.3-7.7) k/uL Lymphocytes # 1.6 (1.0-4.8) k/uL Monocytes # 0.4 (0-1.0) k/uL Eosinophils # 0.2 (0-0.7) k/uL Basophils # 0.0 (0-0.2) k/uL PT (9.0-12.0) sec INR (<1.2) APTT (22.0-30.0) sec Sodium (137-145) mmol/L Potassium (3.5-5.1) mmol/L Chloride (98-107) mmol/L Carbon Dioxide (22-30) mmol/L Anion Gap mmol/L BUN (7-17) mg/dL Creatinine (0.52-1.04) mg/dL Est GFR (CKD-EPI)AfAm (>60 ml/min/1.73 sqM) Est GFR (CKD-EPI)NonAf (>60 ml/min/1.73 sqM) Glucose (74-99) mg/dL Calcium (8.4-10.2) mg/dL Magnesium (1.6-2.3) mg/dL Total Bilirubin (0.2-1.3) mg/dL AST (14-36) U/L ALT (4-34) U/L Alkaline Phosphatase (38-126) U/L Troponin I <0.012 (0.000-0.034) ng/mL Total Protein (6.3-8.2) g/dL Albumin (3.5-5.0) g/dL Urine Color Yellow Urine Appearance Cloudy H (Clear) Urine pH 6.0 (5.0-8.0) Ur Specific [place] 1.017 (1.001-1.035) Urine Protein Trace H (Negative) Urine Glucose (UA) Negative (Negative) Urine Ketones Negative (Negative) Urine Blood Negative (Negative) Urine Nitrite Negative (Negative) Urine Bilirubin Negative (Negative) Urine Urobilinogen <2.0 (<2.0) mg/dL Ur Leukocyte Esterase Moderate H (Negative) Urine RBC 5 (0-5) /hpf Urine WBC 5 (0-5) /hpf Ur Squamous Epith Cells 19 H (0-4) /hpf Hyaline Casts 47 H (0-2) /lpf Urine Mucus Occasional H (None) /hpf 02/25/23 02/25/23 Range/Units 22:25 22:25 WBC (3.8-10.6) k/uL RBC (3.80-5.40) m/uL Hgb (11.4-16.0) gm/dL Hct (34.0-46.0) % MCV (80.0-100.0) fL MCH (25.0-35.0) pg MCHC (31.0-37.0) g/dL RDW (11.5-15.5) % Plt Count (150-450) k/uL MPV Neutrophils % % Lymphocytes % % Monocytes % % Eosinophils % % Basophils % % Neutrophils # (1.3-7.7) k/uL Lymphocytes # (1.0-4.8) k/uL Monocytes # (0-1.0) k/uL Eosinophils # (0-0.7) k/uL Basophils # (0-0.2) k/uL PT (9.0-12.0) sec INR (<1.2) APTT (22.0-30.0) sec Sodium 130 L (137-145) mmol/L Potassium 3.4 L (3.5-5.1) mmol/L Chloride 96 L (98-107) mmol/L Carbon Dioxide 25 (22-30) mmol/L Anion Gap 9 mmol/L BUN 16 (7-17) mg/dL Creatinine 1.12 H (0.52-1.04) mg/dL Est GFR (CKD-EPI)AfAm 60 (>60 ml/min/1.73 sqM) Est GFR (CKD-EPI)NonAf 52 (>60 ml/min/1.73 sqM) Glucose 68 L (74-99) mg/dL Calcium 9.9 (8.4-10.2) mg/dL Magnesium (1.6-2.3) mg/dL Total Bilirubin 0.8 (0.2-1.3) mg/dL AST 30 (14-36) U/L ALT 18 (4-34) U/L Alkaline Phosphatase 63 (38-126) U/L Troponin I <0.012 (0.000-0.034) ng/mL Total Protein 6.4 (6.3-8.2) g/dL Albumin 3.8 (3.5-5.0) g/dL Urine Color Urine Appearance (Clear) Urine pH (5.0-8.0) Ur Specific [place] (1.001-1.035) Urine Protein (Negative) Urine Glucose (UA) (Negative) Urine Ketones (Negative) Urine Blood (Negative) Urine Nitrite (Negative) Urine Bilirubin (Negative) Urine Urobilinogen (<2.0) mg/dL Ur Leukocyte Esterase (Negative) Urine RBC (0-5) /hpf Urine WBC (0-5) /hpf Ur Squamous Epith Cells (0-4) /hpf Hyaline Casts (0-2) /lpf Urine Mucus (None) /hpf Disposition <Luana Verduzco - Last Filed: 02/25/23 20:04> Is patient prescribed a controlled substance at d/c from ED?: No <Brandon Teague - Last Filed: 03/07/23 07:50> Clinical Impression: Vasovagal syncope, Hypokalemia, Hyponatremia Disposition: HOME SELF-CARE Condition: Fair Instructions (If sedation given, give patient instructions): Syncope (ED) Referrals: Raheem Mujica MD [Primary Care Provider] - 1-2 days
--- NOTE | 2023-02-25 21:13 | CT ---
EXAMINATION TYPE: CT brain wo con CT DLP: 1177.4 mGycm, Automated exposure control for dose reduction was used. DATE OF EXAM: 02/25/2023 9:07 PM COMPARISON: 12/26/2022. CLINICAL INDICATION:Female, 67 years old with history of syncope, dizziness, syncope, fainted 3 times recently. TECHNIQUE: Brain: Axial CT images of the brain were obtained with coronal and sagittal reformats created and rev iewed. Contrast used: None. Oral contrast used: None. FINDINGS: Brain: Extra-axial spaces: No abnormal extra-axial fluid collections. Ventricular system: Within normal limits Cerebral parenchyma: No acute intraparenchymal hemorrhage or mass effect. The tejeda-white junction is well differentiated. Cerebellum: Unremarkable. Mass effect: No evidence of midline shift. Intracranial vasculature: unremarkable Soft tissues: Normal. Calvarium/osseous structures: No depressed skull fracture. Paranasal sinuses and mastoid air cells: Mild scattered paranasal sinus disease. Visualized orbits: Orbital contents are intact. IMPRESSION: No acute intracranial process.
[2023-02-25 22:36] LABS: Basophils % (A) 0 %; Eosinophils # (A) 0.2 k/uL (0-0.7); Eosinophils % (A) 3 %; HCT 37.5 % (34.0-46.0); HGB 12.8 gm/dL (11.4-16.0); Lymphocytes # (A) 1.6 k/uL (1.0-4.8); Lymphocytes % (A) 23 %; MCH 31.6 pg (25.0-35.0); MCHC 34.2 g/dL (31.0-37.0); MCV 92.4 fL (80.0-100.0); Mean Platelet Volume 7.3; Monocytes # (A) 0.4 k/uL (0-1.0); Monocytes % (A) 6 %; Neutrophils # (A) 4.7 k/uL (1.3-7.7); Neutrophils % (A) 67 %; Platelet Count 371 k/uL (150-450); RBC 4.05 m/uL (3.80-5.40); RDW 14.8 % (11.5-15.5)
[2023-02-25 22:49] LABS: ALT 18 U/L (4-34); AST 30 U/L (14-36); African American GFR (CKD) 60 (>60 ml/min/1.73 sqM); Albumin 3.8 g/dL (3.5-5.0); Alkaline Phosphatase 63 U/L (38-126); Anion Gap 9 mmol/L; Blood Urea Nitrogen 16 mg/dL (7-17); Calcium 9.9 mg/dL (8.4-10.2); Carbon Dioxide 25 mmol/L (22-30); Chloride 96 mmol/L (98-107); Glucose 68 mg/dL (74-99); Non-African American GFR(CKD) 52 (>60 ml/min/1.73 sqM); Potassium 3.4 mmol/L (3.5-5.1); Sodium 130 mmol/L (137-145); Total Bilirubin 0.8 mg/dL (0.2-1.3); Total Protein 6.4 g/dL (6.3-8.2)
[2023-02-25 22:57] VITALS: RESP 16
[2023-02-25] MEDS ORDERED: SODIUM CHLORIDE 0.9% 500 ML 500 ML IV STA (23:18)
[2023-02-25] MEDS ORDERED: POTASSIUM CHLORIDE ER 20 MEQ TAB.ER PO STA (23:18)
[2023-02-25 23:43] LABS: Appearance,Urine Cloudy (Clear); Bilirubin,Urine Negative (Negative); Blood,Urine Negative (Negative); Color,Urine Yellow; Glucose,Urine (UA) Negative (Negative); Hyaline Casts,Urine 47 /lpf (0-2); Ketones,Urine Negative (Negative); Leukocyte Esterase,Urine Moderate (Negative); Mucus,Urine Occasional /hpf; Nitrite,Urine Negative (Negative); Protein,Urine Trace (Negative); RBC,Urine 5 /hpf (0-5); Specific Gravity,Urine 1.017 (1.001-1.035); Squamous Epithelial Cell,Urine 19 /hpf (0-4); Urobilinogen,Urine <2.0 mg/dL (<2.0); WBC,Urine 5 /hpf (0-5)
[2023-02-26 00:54] VITALS: BP 97/69; PULSE 94
== END 2023-02-26 00:49 | disposition home or self-care (01) ==
LOC: EC 18:27
DX: E87.6 Hypokalemia (principal); R55 Syncope and collapse; E87.1 Hypo-osmolality and hyponatremia; E78.5 Hyperlipidemia, unspecified; F17.200 Nicotine dependence, unspecified, uncomplicated; F32.A Depression, unspecified; Z79.899 Other long term (current) drug therapy; Z88.0 Allergy status to penicillin; Z88.8 Allergy status to other drugs, medicaments and biological substances
CPT/HCPCS: 70450; 71046; 80053; 81001; 83735; 84484; 85025; 85610; 85730; 93005; 96360; 99284

== ENCOUNTER → 2023-12-07 | Outpatient (CLI) | payer MEDICARE, OTHER ==
--- NOTE | 2023-12-07 18:30 | CT ---
EXAMINATION TYPE: CT abdomen pelvis wo con DATE OF EXAM: 12/07/2023 COMPARISON: None INDICATION: Severe rectal pain x 2 weeks. DLP: 366.6 mGycm, Automated exposure control for dose reduction was used. CONTRAST: 0 mL of Isovue 300. Study performed without Oral Contrast TECHNIQUE: Axial images were obtained from above the diaphragm to the pubic rami in the axial plane a t 5 mm thick sections. Reconstructed images are reviewed on the computer in the coronal plane. FINDINGS: Limited CT sections are obtained the lung bases. There may be a 0.6 cm density just above the right diaphragm, series 4 image 20. Follow-up in 6 months can be performed. CT ABDOMEN: Liver: Normal Spleen: Normal Pancreas: Normal Adrenal glands: The adrenal glands are normal. Gallbladder: Normal Kidneys: There is some malpositioning of left kidney. No masses are evident. No hydronephrosis is pre sent. No cysts are present. No renal stones are evident. Aorta: Vascular calcification is within the aorta. Inferior vena cava: Normal. CT PELVIS: The study is without oral contrast limiting bowel evaluation. Large fecal bolus of the rectum. Correl ate for impaction. No suspicious adjacent inflammatory changes are identified. No mass effect is evid ent Appendix: Not identified. No dilated tubular structure or inflammatory change is evident. Urinary bladder: Normal. Genitourinary structures: Uterus appears normal. Adnexa are unremarkable. Osseous structures: No suspicious lytic or sclerotic lesions. IMPRESSION: 1. Correlate for fecal impaction at the rectum. 2. Small nodular density may be at the right diaphragm within the lung base. Follow-up CT chest in 6 months recommended. 3. No suspicious acute changes otherwise evident.
== END | disposition home or self-care (01) ==
LOC: RADCTMAIN 17:42
PROVIDERS: ATTEND Family Medicine
DX: K59.09 Other constipation (principal); R10.84 Generalized abdominal pain
CPT/HCPCS: 74176

== ENCOUNTER 2024-02-01 13:10 | Inpatient (IN) | payer MEDICARE, OTHER ==
[2024-02-01] MEDS ORDERED: NALOXONE 0.4 MG/ML 1 ML VIAL IV PRN (16:58)
[2024-02-01] MEDS ORDERED: ALPRAZolam 0.25 MG TAB PO PRN (17:36)
[2024-02-01] MEDS: ALPRAZolam 0.25 MG TAB PO PRN (19:08)
[2024-02-01] MEDS: HYDROcodone/APAP 10-325MG 1 EACH TAB PO PRN (19:08)
[2024-02-01] MEDS: IPRATROPIUM-ALBUTEROL 3 ML NEB INHALATION SCH (19:29)
[2024-02-01] MEDS: BUDESONIDE 1 MG/2 ML NEBU INHALATION SCH (19:29)
[2024-02-01] MEDS: GLYCOPYRROLATE 1 MG TAB PO SCH (21:38)
[2024-02-01] MEDS: DOCUSATE 100 MG CAP PO SCH (21:38)
[2024-02-01] MEDS: GABAPENTIN 100 MG CAP PO SCH (21:38)
[2024-02-01] MEDS: SILDENAFIL 20 MG TAB PO SCH (21:38)
[2024-02-01] MEDS: buPROPion SR 150 MG TABLET.ER PO SCH (21:39)
--- NOTE | 2024-02-02 04:55 | XR ---
EXAMINATION TYPE: XR chest 1V portable DATE OF EXAM: 02/02/2024 CLINICAL HISTORY: Dyspnea TECHNIQUE: Single frontal view of the chest is obtained. COMPARISON: Chest x-ray February 25, 2023 FINDINGS: There is mild cardiomegaly with central vascular congestion and small right pleural effusi on. The osseous structures are demineralized. IMPRESSION: Findings suggest CHF exacerbation/fluid overload state.
[2024-02-02 05:38] LABS: Anisocytosis Slight; Basophils % (A) 0 %; Eosinophils % (A) 0 %; HCT 31.9 % (34.0-46.0); HGB 9.9 gm/dL (11.4-16.0); Hypochromasia Marked; Lymphocytes # (A) 1.1 k/uL (1.0-4.8); Lymphocytes % (A) 10 %; MCH 28.8 pg (25.0-35.0); MCHC 31.2 g/dL (31.0-37.0); MCV 92.3 fL (80.0-100.0); Mean Platelet Volume 8.5; Monocytes # (A) 0.7 k/uL (0-1.0); Monocytes % (A) 6 %; Neutrophils % (A) 83 %; Platelet Count 264 k/uL (150-450); RBC 3.46 m/uL (3.80-5.40); RDW 17.6 % (11.5-15.5); WBC 10.9 k/uL (3.8-10.6)
[2024-02-02 05:51] LABS: ALT 14 U/L (4-34); AST 20 U/L (14-36); African American GFR (CKD) 68 (>60 ml/min/1.73 sqM); Albumin 3.7 g/dL (3.5-5.0); Alkaline Phosphatase 48 U/L (38-126); Anion Gap 3 mmol/L; Blood Urea Nitrogen 31 mg/dL (7-17); Calcium 9.3 mg/dL (8.4-10.2); Carbon Dioxide 33 mmol/L (22-30); Chloride 102 mmol/L (98-107); Glucose 79 mg/dL (74-99); Magnesium 2.2 mg/dL (1.6-2.3); Non-African American GFR(CKD) 59 (>60 ml/min/1.73 sqM); Potassium 3.8 mmol/L (3.5-5.1); Sodium 138 mmol/L (137-145); Total Bilirubin 0.7 mg/dL (0.2-1.3); Total Protein 5.6 g/dL (6.3-8.2)
--- NOTE | 2024-02-02 08:08 | P.CNPUL ---
History of Present Illness Consult date: 02/02/24 Requesting physician: Raheem Mujica Reason for consult: other (Pulmonary management) Chief complaint: Transferred from [facility] for cardiothoracic consult History of present illness: Patient is a 68-year-old female with past medical history significant for COPD, chronic oxygen dependence, chronic ongoing tobacco dependence, hyperlipidemia, hypertension, among other things. Patient reports over the past 1 month she has had 3 episodes of what she attributed to be panic attacks. She was acutely short of breath followed by anxiety. Of note, also had multiple episodes of syncope over the last few months. On December she was evaluated at [facility]. Reportedly underwent heart catheterization, I do not believe she received any percutaneous coronary intervention. She was found to have significant valvular heart disease on transthoracic echocardiogram, official results are not available to me at this time.. Reported affected valves include severe mitral regurgitation and at least moderate to severe aortic regurgitation. Yesterday, patient was transferred to [facility] for ENRIQUE and cardiothoracic surgery consult. Patient is currently in the intensive care unit room 263. She is sitting up in bed on 3 L/min nasal cannula. SpO2 is 100% at rest. Not in any respiratory distress. Reportedly normally wears 2 to 3 L nasal cannula at bedtime. She does have history of COPD and normally utilizes a combination of Trelegy maintenance inhaler and albuterol nebs. She still smokes approximately 1 pack/day. She is wheezing. Denies any infectious symptoms. No change in chronic cough, sputum production, chest pain, fever. We are waiting on chest x-ray. Currently on a combination of Pulmicort, DuoNebs, and IV Solu-Medrol. CBC from outside facility: WBC count 10, hemoglobin 9.9, hematocrit 30.8, platelets 202. BMP from outside facility inclu delmi a sodium 143, potassium 4.2, chloride 108, serum bicarb 32, BUN 15, creatinine 0.88, glucose 100. Troponins were mildly elevated. Hemodynamics are stable. Review of Systems REVIEW OF SYSTEMS: CONSTITUTIONAL: Denies any recent significant weight loss or weight gain. Denies fevers, chills, night sweats. EYES: Denies change in vision. EARS, NOSE, MOUTH, THROAT: Denies headaches, denies sore throat. CARDIOVASCULAR: See HPI. RESPIRATORY: See HPI. GASTROINTESTINAL: Denies change in appetite, abdominal pain, nausea and vomiting, or diarrhea GENITOURINARY: Denies hematuria, denies infections. MUSKULOSKELETAL: Denies pain, denies swelling. INTEGUMENTARY: Denies rash, denies eczema. NEUROLOGICAL: Denies recent memory loss, no recent seizure activity. PSYCHIATRIC: Denies anxiety, denies depression. HEMATOLOGIC/LYMPHATIC: Denies anemia, denies enlarged lymph node Past Medical History Past Medical History: Hyperlipidemia Additional Past Medical History / Comment(s): HAD PNEUMONIA ABOUT 2 WEEKS AGO History of Any Multi-Drug Resistant Organisms: None Reported Past Surgical History: Back Surgery, Section Additional Past Surgical History / Comment(s): L4-L5 decompression Past Anesthesia/Blood Transfusion Reactions: No Reported Reaction Past Psychological History: Depression Smoking Status: Current every day smoker Past Alcohol Use History: None Reported Past Drug Use History: None Reported - Past Family History Mother Family Medical History: Myocardial Infarction ([place]) Additional Family Medical History / Comment(s): Mother at age 78 with history of pneumonia, 3 vessel CABG. Father Additional Family Medical History / Comment(s): Father at age 83. Vital h istory is unknown as he never went to the doctor. Brother(s) Additional Family Medical History / Comment(s): Patient has 2 brothers and one has known spinal stenosis. Patient has 2 sisters and one has Crohn's and one has Edvin-Vieira. Patient has one daughter with Crohn's disease. Medications and Allergies Home Medications Medication Instructions Recorded Confirmed Type Citalopram Hydrobromide 40 mg PO DAILY 12/26/22 02/01/24 History [Citalopram HBr] Cyanocobalamin (Vitamin B-12) 1,000 mcg PO DAILY 12/26/22 02/01/24 History [Vitamin B-12] Fluticasone/Umeclidin/Vilanter 1 puff INHALATION RT-DAILY 12/26/22 02/01/24 History [Trelegy Ellipta 200-62.5-25] Gabapentin [Neurontin] 600 mg PO TID 12/26/22 02/01/24 History Glycopyrrolate 1 mg PO TID 12/26/22 02/01/24 History HYDROcodone/APAP 10-325MG [[place] 1 tab PO TID 12/26/22 02/01/24 History 10-325] Lovastatin [Mevacor] 20 mg PO HS 12/26/22 02/01/24 History Omeprazole [PriLOSEC] 40 mg PO DAILY 12/26/22 02/01/24 History buPROPion SR [Wellbutrin SR] 150 mg PO BID 12/26/22 02/01/24 History traZODone HCL 200 mg PO HS PRN 12/26/22 02/01/24 History valACYclovir HCL [Valtrex] 1,000 mg PO DAILY PRN 12/26/22 02/01/24 History Citalopram Hydrobromide [CeleXA] 20 mg PO DAILY 02/05/23 02/01/24 History Ipratropium-Albuterol Nebulize 3 ml INHALATION RT-QID PRN 02/05/23 02/01/24 History [Duoneb 0.5 mg-3 mg/3 ml Soln] ALPRAZolam [Xanax] 0.25 mg PO Q6H PRN 02/01/24 02/01/24 History Brexpiprazole [Rexulti] 1 mg PO DAILY 02/01/24 02/01/24 History Cholecalciferol (Vitamin D3) 50 mcg PO DAILY 02/01/24 02/01/24 History [Vitamin D3 (50 Mcg = 2000 Iu)] Dextroamphetamine/Amphetamine 10 mg PO BID@0700,1400 02/01/24 02/01/24 History [Adderall] Folic Acid 1 mg PO DAILY 02/01/24 02/01/24 History Glycopyrrolate [Robinul] 1 mg PO TID 02/01/24 02/01/24 History Lactulose 20 gm PO DAILY 02/01/24 02/01/24 History Metoprolol Succinate (ER) [Toprol 50 mg PO DAILY 02/01/24 02/01/24 History Xl] Allergies Allergy/AdvReac Type Severity Reaction Status Date / Time amoxicillin [From Augmentin] AdvReac Nausea & Verified 02/01/24 17:00 Vomiting clavulanic acid AdvReac Nausea & Verified 02/01/24 17:00 [From Augmentin] Vomiting Physical Exam Vitals: Vital Signs Temp Pulse Pulse Resp BP BP Pulse Ox 02/01/24 22:00 64 12 02/01/24 20:00 65 22 103/64 02/01/24 19:39 69 02/01/24 19:32 67 02/01/24 18:40 68 20 104/73 02/01/24 18:00 67 14 100 02/01/24 16:01 99 02/01/24 16:00 97.9 F 65 15 93/61 99 02/01/24 15:50 64 02/01/24 15:46 63 16 104/69 100 Intake and Output 02/01/24 02/01/24 02/02/24 14:59 22:59 06:59 Output Total 0 Balance 0 Output: Urine 0 Other: Voiding Method Toilet # Voids 1 Weight 62.4 kg 54.6 kg GENERAL EXAM: Alert, 68-year-old white female, on 3 L/min nasal cannula, comfortable in no apparent distress. HEAD: Normocephalic and atraumatic EYES: Normal reaction of pupils, equal size. NOSE: Clear with pink turbinates. THROAT: No erythema or exudates. NECK: No masses, no JVD. CHEST: No chest wall deformity. LUNGS: Equal air entry with expiratory wheezes heard throughout. Inspiratory right lower lobe crackles. On 3 L/min nasal cannula. No conversational dyspnea or accessory muscle use at rest CVS: S1 and S2 normal with soft systolic murmur, regular rhythm. No other extra heart sounds ABDOMEN: No hepatosplenomegaly, active bowel sounds, no guarding or rigidity. SPINE: No scoliosis or deformity SKIN: No rashes CENTRAL NERVOUS SYSTEM: No focal deficits, tone is normal in all 4 extremities. EXTREMITIES: There is no peripheral edema, clubbing, or cyanosis. Peripheral pulses are intact. Results - Laboratory Findings CBC and BMP: 02/02/24 05:28 02/02/24 05:28 Assessment and Plan Assessment: Valvular heart disease, patient transferred from outside facility for cardiothoracic consult. Pending ENRIQUE. Acute COPD exacerbation Acute on chronic hypoxemic respiratory failure, secondary to a combination of above. Chest x-ray obtained and demonstrating central vascular congestion and right-sided pleural effusion. Suspected acute CHF exacerbation. Anemia, normocytic normochromic Chronic ongoing tobacco dependence, 1 pack/day smoker with over [id number] history History of hyperlipidemia History of hypertension Chronic back pain and she is on Neurontin, and hydrocodone Depression Migraines Smoker Plan: Patient is currently being monitored in the intensive care unit. Hemodynamics are stable Continues to supplemental oxygen to maintain oxygen saturation of 92% or greater Obtain stat chest x-ray. Repeat lab work Currently n.p.o.; Tentative plan for ENRIQUE today Cardiothoracic surgery consulted Receiving Lasix 40 mg daily Continue combination of budesonide, formoterol, DuoNebs, and IV Solu-Medrol. Smoking cessation counseling performed, greater than 10 minutes. Nicotine patch offered. Protonix for GI prophylaxis Heparin for DVT prophylaxis We will continue to follow, and further recommendations to follow I have personally seen and examined the patient, performed the documentation and the assessment and plan as written. Number of minutes spent on the visit:20 This is a joint evaluation this was done along with the nurse practitioner. Patient was seen and evaluated in the intensive care unit. The patient is known to have COPD, hypertension hyperlipidemia and the patient has been having episodes of shortness of breath and syncope. Cardiac catheterization was done and the patient was found to have nonocclusive coronary artery disease. However, the patient was found to have severe mitral regurgitation the patient is currently in the intensive care unit awaiting a ENRIQUE and further cardiology and cardiothoracic surgery evaluation. The patient is currently on Lasix 40 mg p.o. daily. The patient is on metoprolol at a dose of 75 mg XL 1 tablet a day. Bronchodilator in the form of DuoNeb updrafts, and the patient is also on a combination of Perforomist and Pulmicort nebulized treatments twice a day. The chest x-ray done on 02/29/2024 was consistent with pulmonary edema Clinically, the patient is stable. The patient is currently on oxygen at 3 L/min nasal cannula. Denies having any chest pain. No significant shortness of breath at rest. No history of any angina or palpitation. No swelling lower extremities. No significant cardiac arrhythmias. Awaiting further workup. I am going to take the opportunity to discontinue the lavage treated for started earlier as the patient's pulm hypertension is likely cardiac in nature and this is a group 2 pulm hypertension. As such, this may potentially exacerbate the pulmonary edema. The patient will be also taken off the Levaquin. Continue the rest of the medications including the bronchodilators, maintenance and additional treatments and systemic steroids to optimize further COPD. Will continue to follow. Will collaborate care with the cardiothoracic team. Time with Patient: Greater than 30
[2024-02-02] MEDS: IPRATROPIUM-ALBUTEROL 3 ML NEB INHALATION SCH (08:30)
[2024-02-02] MEDS: FORMOTEROL FUMARATE 20 MCG/2 ML NEBU INHALATION SCH (08:46)
[2024-02-02] MEDS ORDERED: CLOPIDOGREL 75 MG TAB PO SCH (09:00)
[2024-02-02] MEDS ORDERED: LEVOFLOXACIN 750MG-D5W PMX 750 MG in DEXTROSE/WATER 1 150ML.BAG IVPB SCH (09:00)
--- NOTE | 2024-02-02 09:08 | P.GSCN ---
History of Present Illness Consult date: 02/02/24 Reason for Consult: Severe mitral valve regurgitation Requesting physician: Raheem Mujica History of present illness: This is a 68-year-old female patient who follows outpatient with Dr. Raheem Mujica for primary care. She has a previous medical history of mild CAD, hyperlipidemia, COPD on home oxygen at night and PRN, recent pneumonia still on Levaquin and IV steroids, GERD, previous tobacco dependence, occasional marijuana use, and family history of coronary artery disease with mother from myocardial infarction in her 70s. This patient presented to [facility] with complaints of shortness of breath at rest and feeling like she could not catch her breath intermittently for the last 4 weeks. Initially she thought these episodes were panic attacks, however since they continued she presented to the hospital. She also endorsed some chest heaviness but no chest pain, as well as 3 syncopal episodes. She does live by herself and does perform her own ADLs but is not very active due to back pain. She did have a transthoracic echocardiogram completed January 11, 2024 demonstrating normal left ventricular systolic function with EF 55 to 60%, severe mitral regurgitation, moderate to severe tricuspid regurgitation, moderate aortic insufficiency, and severe pulmonary hypertension. She also had heart catheterization on January 15, 2024 revealing no significant coronary disease. She was transferred to [facility] on February 01, 2024 from [facility] for ENRIQUE and consultation to cardiothoracic surgery. Review of Systems Review of systems was completed and was negative except as noted - Cardiovascular Reports as per HPI, Reports leg edema, Reports shortness of breath, Reports syncope Past Medical History Past Medical History: Coronary Artery Disease (CAD), COPD, Hyperlipidemia, Syncope Additional Past Medical History / Comment(s): HAD PNEUMONIA ABOUT 2 WEEKS AGO History of Any Multi-Drug Resistant Organisms: None Reported Past Surgical History: Back Surgery, Section, Heart Catheterization, Tubal Ligation Additional Past Surgical History / Comment(s): L4-L5 decompression Past Anesthesia/Blood Transfusion Reactions: No Reported Reaction Past Psychological History: Depression Smoking Status: Former smoker Past Alcohol Use History: None Reported Past Drug Use History: Marijuana Additional Drug Use History / Comment(s): Occasional marijuana Gummies Additional History: Reportedly quit smoking 1 month ago, prior to that she smoked 1 pack/day for 50 years - Past Family History Mother Family Medical History: Myocardial Infarction ([place]) Additional Family Medical History / Comment(s): Mother at age 78 from myocardial infarction with history of pneumonia, 3 vessel CABG. Father Additional Family Medical History / Comment(s): Patient recently found out that the man who raised her was not her biological father, unknown history of biological father Brother(s) Additional Family Medical History / Comment(s): Patient has 2 brothers and one has known spinal stenosis. Patient has 2 sisters and one has Crohn's and one has Edvin-Vieira. Patient has one daughter with Crohn's disease. Medications and Allergies Home Medications Medication Instructions Recorded Confirmed Type Citalopram Hydrobromide 40 mg PO DAILY 12/26/22 02/01/24 History [Citalopram HBr] Cyanocobalamin (Vitamin B-12) 1,000 mcg PO DAILY 12/26/22 02/01/24 History [Vitamin B-12] Fluticasone/Umeclidin/Vilanter 1 puff INHALATION RT-DAILY 12/26/22 02/01/24 History [Trelegy Ellipta 200-62.5-25] Gabapentin [Neurontin] 600 mg PO TID 12/26/22 02/01/24 History Glycopyrrolate 1 mg PO TID 12/26/22 02/01/24 History HYDROcodone/APAP 10-325MG [[place] 1 tab PO TID 12/26/22 02/01/24 History 10-325] Lovastatin [Mevacor] 20 mg PO HS 12/26/22 02/01/24 History Omeprazole [PriLOSEC] 40 mg PO DAILY 12/26/22 02/01/24 History buPROPion SR [Wellbutrin SR] 150 mg PO BID 12/26/22 02/01/24 History traZODone HCL 200 mg PO HS PRN 12/26/22 02/01/24 History valACYclovir HCL [Valtrex] 1,000 mg PO DAILY PRN 12/26/22 02/01/24 History Citalopram Hydrobromide [CeleXA] 20 mg PO DAILY 02/05/23 02/01/24 History Ipratropium-Albuterol Nebulize 3 ml INHALATION RT-QID PRN 02/05/23 02/01/24 History [Duoneb 0.5 mg-3 mg/3 ml Soln] ALPRAZolam [Xanax] 0.25 mg PO Q6H PRN 02/01/24 02/01/24 History Brexpiprazole [Rexulti] 1 mg PO DAILY 02/01/24 02/01/24 History Cholecalciferol (Vitamin D3) 50 mcg PO DAILY 02/01/24 02/01/24 History [Vitamin D3 (50 Mcg = 2000 Iu)] Dextroamphetamine/Amphetamine 10 mg PO BID@0700,1400 02/01/24 02/01/24 History [Adderall] Folic Acid 1 mg PO DAILY 02/01/24 02/01/24 History Glycopyrrolate [Robinul] 1 mg PO TID 02/01/24 02/01/24 History Lactulose 20 gm PO DAILY 02/01/24 02/01/24 History Metoprolol Succinate (ER) [Toprol 50 mg PO DAILY 02/01/24 02/01/24 History Xl] Allergies Allergy/AdvReac Type Severity Reaction Status Date / Time amoxicillin [From Augmentin] AdvReac Nausea & Verified 02/01/24 17:00 Vomiting clavulanic acid AdvReac Nausea & Verified 02/01/24 17:00 [From Augmentin] Vomiting Surgical - Exam Vital Signs Pulse Resp BP Pulse Ox 63 16 104/69 100 02/01/24 15:46 02/01/24 15:46 02/01/24 15:46 02/01/24 15:46 CONSTITUTIONAL: Awake and alert, appears comfortable, cooperative, well- developed, well-nourished, no pain, no acute distress EYES: Pupils equal, round, reactive to light, normal ocular movement ENT: Moist mucous membranes without oral lesions present, edentulous NECK: No masses, no bruits, trachea midline RESPIRATORY: Lungs sounds diminished bilaterally, faint crackles heard in the bases. Respirations even, nonlabored. Currently on 3 L nasal cannula with oxygen saturation 100%. Strong cough. No chest wall deformities. No clubbing or cyanosis present CARDIOVASCULAR: S1, S2 present. Regular rate and rhythm, sinus rhythm on telemetry. Palpable peripheral pulses bilaterally. No edema present. No calf pain or tenderness noted. No significant lower extremity varicosities noted GASTROINTESTINAL: Abdomen soft, nontender, nondistended without masses or organomegaly noted. There is no rebound or guarding present. Active bowel sounds present 4 quadrants. GENITOURINARY: Deferred INTEGUMENTARY: Skin is warm and dry with evidence of good perfusion. NEUROLOGIC: Cranial nerves II through XII intact, normal coordination, no obvious motor or sensory deficits, speech is normal MUSKULOSKELETAL: Able to move all extremities, strength equal bilaterally, normal posture PSYCHIATRIC: Alert and oriented to person place and time, appropriate affect, intact judgment and insight CLINICAL FRAILTY SCORE 4 Results - Labs 02/02/24 05:28 02/02/24 05:28 Abnormal Lab Results - Last 24 Hours (Table) 02/02/24 02/02/24 Range/Units 05:28 05:28 WBC 10.9 H (3.8-10.6) k/uL RBC 3.46 L (3.80-5.40) m/uL Hgb 9.9 L (11.4-16.0) gm/dL Hct 31.9 L (34.0-46.0) % RDW 17.6 H (11.5-15.5) % Neutrophils # 9.0 H (1.3-7.7) k/uL Carbon Dioxide 33 H (22-30) mmol/L BUN 31 H (7-17) mg/dL Total Protein 5.6 L (6.3-8.2) g/dL Diabetes panel 02/02/24 Range/Units 05:28 Sodium 138 (137-145) mmol/L Potassium 3.8 (3.5-5.1) mmol/L Chloride 102 (98-107) mmol/L Carbon Dioxide 33 H (22-30) mmol/L BUN 31 H (7-17) mg/dL Creatinine 1.00 (0.52-1.04) mg/dL Glucose 79 (74-99) mg/dL Calcium 9.3 (8.4-10.2) mg/dL AST 20 (14-36) U/L ALT 14 (4-34) U/L Alkaline Phosphatase 48 (38-126) U/L Total Protein 5.6 L (6.3-8.2) g/dL Albumin 3.7 (3.5-5.0) g/dL Calcium panel 02/02/24 Range/Units 05:28 Calcium 9.3 (8.4-10.2) mg/dL Albumin 3.7 (3.5-5.0) g/dL Pituitary panel 02/02/24 Range/Units 05:28 Sodium 138 (137-145) mmol/L Potassium 3.8 (3.5-5.1) mmol/L Chloride 102 (98-107) mmol/L Carbon Dioxide 33 H (22-30) mmol/L BUN 31 H (7-17) mg/dL Creatinine 1.00 (0.52-1.04) mg/dL Glucose 79 (74-99) mg/dL Calcium 9.3 (8.4-10.2) mg/dL Adrenal panel 02/02/24 Range/Units 05:28 Sodium 138 (137-145) mmol/L Potassium 3.8 (3.5-5.1) mmol/L Chloride 102 (98-107) mmol/L Carbon Dioxide 33 H (22-30) mmol/L BUN 31 H (7-17) mg/dL Creatinine 1.00 (0.52-1.04) mg/dL Glucose 79 (74-99) mg/dL Calcium 9.3 (8.4-10.2) mg/dL Total Bilirubin 0.7 (0.2-1.3) mg/dL AST 20 (14-36) U/L ALT 14 (4-34) U/L Alkaline Phosphatase 48 (38-126) U/L Total Protein 5.6 L (6.3-8.2) g/dL Albumin 3.7 (3.5-5.0) g/dL - Imaging Chest x-ray: report reviewed, image reviewed CT scan - chest: image reviewed Assessment and Plan Assessment: Severe mitral regurgitation, moderate to severe tricuspid regurgitation, moderate aortic insufficiency per transthoracic echocardiogram Severe pulmonary hypertension Preserved left ventricular systolic function, EF 55-60% History of mild CAD Hyperlipidemia, treated COPD on home oxygen at night and PRN Recent pneumonia still on Levaquin and IV steroids GERD Previous tobacco dependence, quit 1 month ago, [id number] history Occasional marijuana use Family history of coronary artery disease with mother from myocardial infarction in her 70s Plan: The patient was seen and examined sitting up in bed in the intensive care unit in no acute distress. Does states she feels a bit better than when she came into the hospital. Denies any chest pain or heaviness currently, denies significant shortness of breath currently, has been ambulatory to and from the bathroom without difficulty. The usual perioperative course of open-heart surgery was discussed in detail with the patient, risks and benefits were reviewed, all questions were answered. She is scheduled for ENRIQUE today to better evaluate her valvular pathology. The patient did have a chest CT without contrast completed at [facility], reviewed. She is edentulous so there is no need for dental clearance. Remainder of open-heart testing ordered, once completed will calculate STS risk score and discuss with the patient. Will complete 5 m walk test. Case was discussed in detail between Dr. Bahena and Dr. Leigh over the weekend. Continue to maximize medical therapy at this time with current medication regimen. Ultimately would like patient to complete her course of Levaquin and steroids to be weaned down. Surgery timing to be determined. Medical management of other comorbidities per internal medicine. More recommendations to follow. Thank you Dr. Mujica for this consult, we look forward to working with you in the care of your patient. I have personally seen and examined the patient, performed the documentation and the assessment and plan as written. Number of minutes spent on the visit: 30. EUGENIA Servin The patient was seen and examined, her chart/diagnostics were reviewed in great detail, I agree with the assessment and plan as documented by the nurse practitioner. Our plan is for mitral valve replacement, tricuspid valve repair on Monday, February 05, 2024. Number of minutes spent on the visit: 40. Guillermo Cody MD
--- NOTE | 2024-02-02 09:15 | P.CRDCN ---
History of Present Illness Consult date: 02/02/24 Reason for Consult (text): Mitral regurgitation History of present illness: The patient is a 68-year-old female who follows in the office with Dr. Ordaz. The patient presented to [facility] with worsening shortness of breath. Echocardiogram showed severe valvular disease, therefore she was transferred to [facility] for escalation of care. CV surgery has been consulted with the patient undergoing transesophageal echocardiogram later today. DIAGNOSTICS: Chest x-ray shows mild cardiomegaly with central vascular congestion and a small right pleural effusion Surface echo shows severe mitral regurgitation and moderate aortic insufficiency Labs: WBC 10.9, hemoglobin 9.9, hematocrit 31.9, platelet 264, sodium 138, potassium 3.8, BUN 31, creatinine 1.0, AST 20, ALT 14 REVIEW OF SYSTEMS: No fever or chills. No cough or expectoration. No diaphoresis. Patient denies headache, dizziness, blurred vision, double vision. Patient denies any stomach discomfort. No nausea, vomiting. No hematochezia. No hematemesis. Denies any black stools or blood in his stools. Denies dysuria or hematuria. No muscle weakness or numbness. Positive for shortness of breath with exertion. PHYSICAL EXAMINATION: This is a 68-year-old female in no apparent distress at the time of my examination. HEENT: Head is atraumatic, normocephalic. Pupils are equal, round. There is no jugular venous distention. No carotid bruit is heard. CHEST EXAMINATION: Lungs are diminished to auscultation. Inspiratory wheezes bilaterally. No chest wall tenderness is noted on palpation or with deep breathing. HEART EXAMINATION: Heart regular rate and rhythm. S1, S2 heard. Systolic murmur. No gallops or rub. ABDOMEN: Soft, nontender. Bowel sounds are heard. No organomegaly noted. EXTREMITIES: 2+ peripheral pulses with no evidence of peripheral edema and no calf tenderness noted. NEUROLOGIC EXAMINATION: Patient is awake, alert and oriented x3. FINAL ASSESSMENT AND PLAN: Valvular heart disease, severe mitral and aortic insufficiency Acute COPD exacerbation Anemia Current smoker History of hypertension History of hyperlipidemia PLAN: Patient is currently n.p.o. in preparation for transesophageal echocardiogram CT surgery has been consulted Further recommendations to be based upon clinical course I am dictating on behalf of Dr Javan Mead's history/physical and assessment/plan. Past Medical History Past Medical History: Coronary Artery Disease (CAD), COPD, Hyperlipidemia Additional Past Medical History / Comment(s): HAD PNEUMONIA ABOUT 2 WEEKS AGO History of Any Multi-Drug Resistant Organisms: None Reported Past Surgical History: Back Surgery, Section Additional Past Surgical History / Comment(s): L4-L5 decompression Past Anesthesia/Blood Transfusion Reactions: No Reported Reaction Past Psychological History: Depression Smoking Status: Current every day smoker Past Alcohol Use History: None Reported Past Drug Use History: None Reported - Past Family History Mother Family Medical History: Myocardial Infarction (VT) Additional Family Medical History / Comment(s): Mother at age 78 with history of pneumonia, 3 vessel CABG. Father Additional Family Medical History / Comment(s): Father at age 83. Vital history is unknown as he never went to the doctor. Brother(s) Additional Family Medical History / Comment(s): Patient has 2 brothers and one has known spinal stenosis. Patient has 2 sisters and one has Crohn's and one has Edvin-Vieira. Patient has one daughter with Crohn's disease. Medications and Allergies Home Medications Medication Instructions Recorded Confirmed Type Citalopram Hydrobromide 40 mg PO DAILY 12/26/22 02/01/24 History [Citalopram HBr] Cyanocobalamin (Vitamin B-12) 1,000 mcg PO DAILY 12/26/22 02/01/24 History [Vitamin B-12] Fluticasone/Umeclidin/Vilanter 1 puff INHALATION RT-DAILY 12/26/22 02/01/24 History [Trelegy Ellipta 200-62.5-25] Gabapentin [Neurontin] 600 mg PO TID 12/26/22 02/01/24 History Glycopyrrolate 1 mg PO TID 12/26/22 02/01/24 History HYDROcodone/APAP 10-325MG [[place] 1 tab PO TID 12/26/22 02/01/24 History 10-325] Lovastatin [Mevacor] 20 mg PO HS 12/26/22 02/01/24 History Omeprazole [PriLOSEC] 40 mg PO DAILY 12/26/22 02/01/24 History buPROPion SR [Wellbutrin SR] 150 mg PO BID 12/26/22 02/01/24 History traZODone HCL 200 mg PO HS PRN 12/26/22 02/01/24 History valACYclovir HCL [Valtrex] 1,000 mg PO DAILY PRN 12/26/22 02/01/24 History Citalopram Hydrobromide [CeleXA] 20 mg PO DAILY 02/05/23 02/01/24 History Ipratropium-Albuterol Nebulize 3 ml INHALATION RT-QID PRN 02/05/23 02/01/24 History [Duoneb 0.5 mg-3 mg/3 ml Soln] ALPRAZolam [Xanax] 0.25 mg PO Q6H PRN 02/01/24 02/01/24 History Brexpiprazole [Rexulti] 1 mg PO DAILY 02/01/24 02/01/24 History Cholecalciferol (Vitamin D3) 50 mcg PO DAILY 02/01/24 02/01/24 History [Vitamin D3 (50 Mcg = 2000 Iu)] Dextroamphetamine/Amphetamine 10 mg PO BID@0700,1400 02/01/24 02/01/24 History [Adderall] Folic Acid 1 mg PO DAILY 02/01/24 02/01/24 History Glycopyrrolate [Robinul] 1 mg PO TID 02/01/24 02/01/24 History Lactulose 20 gm PO DAILY 02/01/24 02/01/24 History Metoprolol Succinate (ER) [Toprol 50 mg PO DAILY 02/01/24 02/01/24 History Xl] Allergies Allergy/AdvReac Type Severity Reaction Status Date / Time amoxicillin [From Augmentin] AdvReac Nausea & Verified 02/01/24 17:00 Vomiting clavulanic acid AdvReac Nausea & Verified 02/01/24 17:00 [From Augmentin] Vomiting Physical Exam Vitals: Vital Signs Temp Pulse Pulse Resp BP BP Pulse Ox 02/02/24 08:46 64 02/02/24 08:45 65 02/02/24 08:30 64 98 02/02/24 06:00 66 14 02/02/24 04:00 62 13 02/02/24 02:00 63 13 02/02/24 00:00 98.3 F 67 14 02/01/24 23:53 39 H 02/01/24 22:00 64 12 02/01/24 20:00 65 22 103/64 02/01/24 19:39 69 02/01/24 19:32 67 02/01/24 18:40 68 20 104/73 02/01/24 18:00 67 14 100 02/01/24 16:01 99 02/01/24 16:00 97.9 F 65 15 93/61 99 02/01/24 15:50 64 02/01/24 15:46 63 16 104/69 100 Intake and Output 02/01/24 02/02/24 02/02/24 22:59 06:59 14:59 Output Total 0 0 0 Balance 0 0 0 Output: Urine 0 0 0 Other: Voiding Method Toilet Toilet # Voids 1 Weight 62.4 kg 54.6 kg Results 02/02/24 05:28 02/02/24 05:28 Cardiac Enzymes 02/02/24 Range/Units 05:28 AST 20 (14-36) U/L CBC 02/02/24 Range/Units 05:28 WBC 10.9 H (3.8-10.6) k/uL RBC 3.46 L (3.80-5.40) m/uL Hgb 9.9 L (11.4-16.0) gm/dL Hct 31.9 L (34.0-46.0) % Plt Count 264 (150-450) k/uL Comprehensive Metabolic Panel 02/02/24 Range/Units 05:28 Sodium 138 (137-145) mmol/L Potassium 3.8 (3.5-5.1) mmol/L Chloride 102 (98-107) mmol/L Carbon Dioxide 33 H (22-30) mmol/L BUN 31 H (7-17) mg/dL Creatinine 1.00 (0.52-1.04) mg/dL Glucose 79 (74-99) mg/dL Calcium 9.3 (8.4-10.2) mg/dL AST 20 (14-36) U/L ALT 14 (4-34) U/L Alkaline Phosphatase 48 (38-126) U/L Total Protein 5.6 L (6.3-8.2) g/dL Albumin 3.7 (3.5-5.0) g/dL Current Medications Generic Name Dose Route Start Last Admin Trade Name Freq PRN Reason Stop Dose Admin Hydrocodone Bitart/Acetaminophen 1 each 02/01/24 17:54 02/01/24 19:08 Hydrocodone/Apap 10-325mg 1 Each Tab PO 1 each Q8HR PRN Administration Pain Albuterol/Ipratropium 3 ml 02/02/24 08:00 02/02/24 08:30 Ipratropium-Albuterol 3 Ml Neb INHALATION 3 ml RT-QID KAMINI Administration Alprazolam 0.25 mg 02/01/24 18:50 02/01/24 19:08 Alprazolam 0.25 Mg Tab PO 0.25 mg Q8H PRN Administration Anxiety Aspirin 81 mg 02/02/24 09:00 Aspirin 81 Mg PO DAILY KAMINI Budesonide 1 mg 02/01/24 20:00 02/02/24 08:30 Budesonide 1 Mg/2 Ml Nebu INHALATION 1 mg RT-BID KAMINI Administration Bupropion HCl 150 mg 02/01/24 21:00 02/01/24 21:39 Bupropion Sr 150 Mg Tablet.Er PO 150 mg BID KAMINI Administration Citalopram Hydrobromide 40 mg 02/02/24 09:00 Citalopram Hydrobromide 20 Mg Tab PO DAILY [facility] Docusate Sodium 100 mg 02/01/24 21:00 02/01/24 21:38 Docusate 100 Mg Cap PO 100 mg BID KAMINI Administration Ferrous Sulfate 325 mg 02/02/24 09:00 Ferrous Sulfate 325 Mg Tab PO DAILY [facility] Folic Acid 1 mg 02/02/24 09:00 Folic Acid 1 Mg Tab PO DAILY [facility] Formoterol Fumarate 20 mcg 02/02/24 08:00 02/02/24 08:46 Formoterol Fumarate 20 Mcg/2 Ml Nebu INHALATION 20 mcg RT-BID KAMINI Administration Furosemide 40 mg 02/02/24 09:00 Furosemide 40 Mg Tab PO DAILY [facility] Gabapentin 100 mg 02/01/24 22:00 02/01/24 21:38 Gabapentin 100 Mg Cap PO 100 mg TID KAMINI Administration Glycopyrrolate 1 mg 02/01/24 22:00 02/01/24 21:38 Glycopyrrolate 1 Mg Tab PO 1 mg TID KAMINI Administration Heparin Sodium (Porcine) 5,000 unit 02/02/24 09:00 Heparin Sodium,Porcine 5,000 Unit/Ml 1 Ml Vial SQ Q12HR [facility] Levofloxacin 750 mg 02/02/24 09:00 Levofloxacin 750 Mg Tab PO Q48H [facility] Protocol Methylprednisolone Sodium Succinate 40 mg 02/02/24 00:00 Methylprednisolone Sod Succi 40 Mg/Ml 1 Ml Vial IV Q8HR [facility] Metoprolol Succinate 75 mg 02/02/24 09:00 Metoprolol Succinate (Er) 25 Mg Tab.Er.24h PO DAILY [facility] Naloxone HCl 0.2 mg 02/01/24 16:58 Naloxone 0.4 Mg/Ml 1 Ml Vial IV Q2M PRN Opioid Reversal Nicotine 1 patch 02/02/24 09:00 Nicotine 21mg/24hr Patch TRANSDERM DAILY [facility] Non-Formulary Medication 10 mg 02/02/24 07:00 Dextroamphetamine/Amphetamine [Adderall] PO BID@0700,1400 [facility] Pantoprazole Sodium 40 mg 02/02/24 07:30 Pantoprazole 40 Mg Tablet PO AC-BRKFST [facility] Sildenafil Citrate 20 mg 02/01/24 22:00 02/01/24 21:38 Sildenafil 20 Mg Tab PO 20 mg TID [facility] Administration Intake and Output 02/01/24 02/02/24 02/02/24 22:59 06:59 14:59 Output Total 0 0 0 Balance 0 0 0 Output: Urine 0 0 0 Other: Voiding Method Toilet Toilet # Voids 1 Weight 62.4 kg 54.6 kg 02/02/24 05:28 02/02/24 05:28
[2024-02-02] MEDS: methylPREDNISolone SOD SUCCI 40 MG/ML 1 ML VIAL IV SCH (09:19)
--- NOTE | 2024-02-02 09:34 | US ---
EXAMINATION TYPE: US carotid duplex BILAT DATE OF EXAM: 02/02/2024 COMPARISON: NONE CLINICAL INDICATION: Female, 68 years old with history of preop cardiac surgery; open heart TECHNIQUE: Carotid duplex ultrasound examination. Indirect Doppler criteria was utilized. FINDINGS: EXAM MEASUREMENTS: RIGHT: Peak Systolic Velocity (PSV) cm/sec ----- Right CCA: 103.1 ----- Right ICA: 97.3 ----- Right ECA: 113.2 ICA/CCA ratio: 0.9 RIGHT: End Diastole cm/sec ----- Right CCA: 26 ----- Right ICA: 26 ----- Right ECA: 18.8 LEFT: Peak Systolic Velocity (PSV) cm/sec ----- Left CCA: 62.4 ----- Left ICA: 123.4 ----- Left ECA: 103.1 ICA/CCA ratio: 2.0 LEFT: End Diastole cm/sec ----- Left CCA: 20.2 ----- Left ICA: 43.5 ----- Left ECA: 11.5 VERTEBRALS (direction of flow): Right Vertebral: Antegrade Left Vertebral: Antegrade Rhythm: Normal BREAK OUT MAN NOTES: No significant stenosis seen IMPRESSION: Less than 50% stenosis of bilateral carotid bifurcations. Criteria for Assigning % of Stenosis / Diameter reduction (Estimation based on the indirect measurements of the internal carotid artery velocities (ICA PSV). 1. Normal (no stenosis)=ICA PSV < 125 cm/s: ratio < 2.0: ICA EDV<40 cm/s. 2. Less than 50% stenosis=ICA PSV < 125 cm/s: ratio < 2.0: ICA EDV<40 cm/s. 3. 50 to 69% stenosis=ICA PSV of 125 to 230 cm/s: ration 2.0 ? 4.0: ICA EDV 40-100 cm/s. 4. Greater than 70% stenosis to near occlusion= ICA PSV > 230 cm/s: ratio > 4.0: ICA EDV > 100 cm/s. 5. Near occlusion= ICA PSV velocities may be low or undetectable: variable ratio and ICA EDV. 6. Total occlusion=unable to detect flow.
[2024-02-02] MEDS: LEVOFLOXACIN 750 MG TAB PO SCH (09:39)
[2024-02-02] MEDS: METOPROLOL SUCCINATE (ER) 25 MG TAB.ER.24H PO SCH (09:39)
[2024-02-02] MEDS: FOLIC ACID 1 MG TAB PO SCH (09:40)
[2024-02-02] MEDS: CITALOPRAM HYDROBROMIDE 20 MG TAB PO SCH (09:40)
[2024-02-02] MEDS: FUROSEMIDE 40 MG TAB PO SCH (09:40)
[2024-02-02] MEDS: FERROUS SULFATE 325 MG TAB PO SCH (09:40)
[2024-02-02] MEDS: ASPIRIN 81 MG PO SCH (09:40)
[2024-02-02] MEDS: PANTOPRAZOLE 40 MG TABLET PO SCH (09:40)
[2024-02-02] MEDS: HEPARIN SODIUM,PORCINE 5,000 UNIT/ML 1 ML VIAL SQ SCH (09:42)
[2024-02-02] MEDS: NON FORMULARY DRUG (Dextroamphetamine/Amphetamine [Adderall] 10 MG Tablet) PO SCH (14:17)
[2024-02-02] MEDS: NICOTINE 21MG/24HR PATCH TRANSDERM SCH (14:18)
[2024-02-02 17:09] LABS: Hepatitis A Antibody IgM Nonreactive (Nonreactive); Hepatitis B Core IgM Nonreactive (Nonreactive); Hepatitis B Surface Antigen Nonreactive (Nonreactive); Hepatitis C IgG Antibody Nonreactive (Nonreactive)
--- NOTE | 2024-02-02 20:12 | HP ---
HISTORY AND PHYSICAL HISTORY OF PRESENT ILLNESS: A 68-year-old white female who was transferred from another hospital for flash pulmonary edema due to severe mitral valve insufficiency. Cardiology talked to Cardiac Surgeon who appears to be prepared to do surgery, so we transferred her over here for ENRIQUE and consult Cardiovascular Surgery. PAST MEDICAL HISTORY: She has COPD, coronary artery disease, dyslipidemia, lumbar disk disease. FAMILY HISTORY: See chart. MEDICATIONS: See chart. ALLERGIES: See chart. PHYSICAL EXAMINATION: VITAL SIGNS: Blood pressure 104/69, respiratory rate 16 to 18, pulse 63, O2 of 100% on 2 L. HEENT: Pupils equal, round, reactive. Normocephalic, atraumatic. LUNGS: Decreased breath sounds. CARDIOVASCULAR: S1, S2. GI: Soft. EXTREMITIES: 2+ edema. NEUROLOGIC: Cranial nerves intact. PSYCH: Fair mood and affect. LABORATORY DATA: Hemoglobin is 9.9, white count is 10.9. ASSESSMENT: 1. Chronic obstructive pulmonary disease exacerbation. 2. Pulmonary hypertension. 3. Severe mitral regurgitation. 4. Preserved ejection fraction. 5. Gastroesophageal reflux disease. Continue home medicines. Wait for Cardiac Surgery. Please see further orders. MMODL / IJN: [id number] /
[2024-02-03] MEDS: BENZOCAINE SPRAY 1 CAN TOPICAL ONE (07:28)
--- NOTE | 2024-02-03 07:38 | P.PN ---
Subjective Progress Note Date: 02/03/24 Principal diagnosis: Severe mitral regurgitation, moderate to severe tricuspid regurgitation, moderate aortic insufficiency per transthoracic echocardiogram, severe pulmonary hypertension, preserved left ventricular systolic function, EF 55-60%. History of mild CAD, hyperlipidemia, COPD on home oxygen at night and PRN, recent pneumonia, GERD, previous tobacco dependence, occasional marijuana use, family history of coronary artery disease with mother from myocardial infarction in her 70s The patient was seen and examined laying in bed in the ICU as an overflow pat ient being rolled down to the [employer] Supervisor for ENRIQUE this morning. Denies any chest pain or shortness of breath at this time. Remains in sinus rhythm, hemodynamically stable, oxygen saturation 100% on 2 L nasal cannula. Preoperative testing completed, we will calculate STS risk score after ENRIQUE completed. Will be seen by surgeon today after ENRIQUE completed to make further decisions regarding surgical intervention. No other new concerns. Objective - Vital Signs Vital signs: Vital Signs Temp 98.0 F 02/03/24 03:50 Pulse 70 02/03/24 03:50 Resp 18 02/03/24 03:50 BP 105/59 02/03/24 03:50 Pulse Ox 100 02/03/24 03:50 FiO2 Intake & Output 02/02/24 02/03/24 02/03/24 18:59 06:59 18:59 Intake Total 500 Output Total 0 Balance 500 Weight 53.6 kg Intake: Oral 500 Output: Urine 0 Other: Voiding Method Toilet Toilet # Voids 4 1 - Exam CONSTITUTIONAL: Appears comfortable, cooperative, no acute distress RESPIRATORY: Lungs sounds diminished in the bases bilaterally. Respirations even, nonlabored. Currently on 2 L nasal cannula with oxygen saturation 100%. Able to achieve 750 mL on incentive spirometry. Strong cough. CARDIOVASCULAR: S1, S2 present. Regular rate and rhythm, sinus rhythm on telemetry. Palpable peripheral pulses bilaterally. No edema present. No calf pain or tenderness noted GASTROINTESTINAL: Abdomen soft, nontender, nondistended. Active bowel sounds present 4 quadrants. Currently n.p.o. for ENRIQUE GENITOURINARY: Continues to void, accurate intake and output not documented INTEGUMENTARY: Skin is warm and dry NEUROLOGIC: Cranial nerves II through XII intact MUSKULOSKELETAL: Able to move all extremities, strength equal bilaterally, gait normal PSYCHIATRIC: Alert and oriented to person place and time, appropriate affect, intact judgment and insight - Allied health notes Allied health notes reviewed: nursing - Labs CBC & Chem 7: 02/02/24 05:28 02/02/24 05:28 Assessment and Plan Assessment: Severe mitral regurgitation, moderate to severe tricuspid regurgitation, moderate aortic insufficiency per transthoracic echocardiogram Severe pulmonary hypertension Preserved left ventricular systolic function, EF 55-60% History of mild CAD Hyperlipidemia, treated COPD on home oxygen at night and PRN Recent pneumonia still on Levaquin and IV steroids GERD Previous tobacco dependence, quit 1 month ago, [id number]-lywy history Occasional marijuana use Family history of coronary artery disease with mother from myocardial infarction in her 70s Plan: Continue current medication regimen, continue aspirin Wean O2 as tolerated, encourage incentive spirometry use Increase activity as tolerated ENRIQUE being completed currently, will calculate STS risk score after completion Will complete 5 m walk test today Wean steroids per pulmonology Patient to be seen by surgeon this afternoon, more recommendations to follow regarding timing of surgery Medical management of other comorbidities per internal medicine
[2024-02-03] MEDS: MIDAZOLAM 2 MG/2 ML VIAL IVP ONE (07:51)
[2024-02-03] MEDS: fentaNYL (PF) 50 MCG/ML 2 ML AMP IVP ONE (07:52)
[2024-02-03] MEDS: SODIUM CHLORIDE 0.9% 500 ML 500 ML IV ONE (08:05)
--- NOTE | 2024-02-03 09:38 | P.PN ---
Subjective Progress Note Date: 02/03/24 Patient is a 68-year-old female who is currently admitted to the hospital with shortness of breath. She underwent ENRIQUE this morning for further evaluation of her mitral valve. Official report still pending, however rounding physician was informed that it was severe rheumatic valvular disease. CT surgery is already consulted and following the case. Patient states she is feeling much better this morning. She has no longer anxious and tachypneic. She denies any chest pain. GENERAL: Well-appearing, well-nourished and in no acute distress. NECK: Supple without JVD or thyromegaly. LUNGS: Breath sounds diminished to auscultation bilaterally. Respiration equal and unlabored. No wheezes, rales or rhonchi. HEART: Regular rate and rhythm. Soft systolic murmur. No rubs or gallops. S1 and S2 heard. EXTREMITIES: Normal range of motion, no edema. No clubbing or cyanosis. Peripheral pulses intact and strong. TELEMETRY: Sinus rhythm overnight IMPRESSION: Rheumatic heart disease, severe mitral and aortic insufficiency Acute COPD exacerbation Anemia Current smoker History of hypertension History of hyperlipidemia PLAN: Plan for left heart cath in preparation for valve surgery Encourage incentive spirometry with history of smoking Further recommendations to be based upon clinical course I am dictating on behalf of Dr Javan Mead's history/physical and assessment/plan. Objective - Vital Signs Vital signs: Vital Signs Temp 98.4 F 02/03/24 08:45 Pulse 57 L 02/03/24 08:45 Resp 14 02/03/24 08:45 BP 90/56 02/03/24 08:45 Pulse Ox 94 L 02/03/24 08:45 FiO2 Intake & Output 02/02/24 02/03/24 02/03/24 18:59 06:59 18:59 Intake Total 500 75 Output Total 0 Balance 500 75 Weight 53.6 kg Intake: IV 75 Oral 500 Output: Urine 0 Other: Voiding Method Toilet Toilet # Voids 4 1 - Labs CBC & Chem 7: 02/02/24 05:28 02/02/24 05:28
[2024-02-03] MEDS: fentaNYL (PF) 50 MCG/ML 2 ML AMP ONE (09:40)
--- NOTE | 2024-02-03 12:49 | P.PCN ---
Date of Procedure: 02/03/24 Operative Findings: TRANSESOPHAGEAL ECHOCARDIOGRAM QUITLINE COUNSELOR: LEONORA LOWE MD, RPVI INDICATION: Mitral regurgitation SEDATION: Conscious sedation COMPLICATION: None LEVEL OF SEDATION Moderate with sedation length of 16 minutes PROCEDURE DESCRIPTION: After obtaining an informed consent, the patient was brought to transesophageal echocardiogram room. Pulse oximetry and heart monitors were attached to the patient. The patient throat was sprayed using lidocaine. The patient was turned into left lateral position. After that a bite guard was placed. After an appropriate conscious sedation was initiated, the transesophageal echocardiogram was advanced through a bite guard into the mid esophagus. A 2-D echocardiogram images, color Doppler images, continuous wave images, pulse-wave images, of various cardiac structure were performed. After that the transesophageal echocardiogram probe was advanced into the stomach and fixed to obtain transgastric view was. The probe was brought into the mid esophagus. Inter-atrial septum was interrogated using 2D images, color Doppler images, and then contrast study. After that transesophageal echocardiogram was withdrawn out and upon withdrawing the descending thoracic aorta all the way up to the arch was evaluated. CONCLUSION: 1. Thickened mitral valve leaflets with a hockey-stick appearance of the anterior mitral leaflet and evidence of severe mitral regurgitation by color- flow Doppler as well as by quantitative measurements with vena contractor measurements exceeding 0.8 cm and also Pisa radius exceeding 1 cm. There was also evidence of reversal of flow in the pulmonary veins as well as dilated left atrium 2. Moderate to severe tricuspid regurgitation was identified 3. Normal biventricular systolic function 4. Trileaflet aortic valve with no stenosis but mild insufficiency 5. Intact left atrial appendage and intact interatrial septum 6. No evidence of pericardial effusion
--- NOTE | 2024-02-03 20:19 | P.PN ---
Subjective Progress Note Date: 02/03/24 Patient is a 68-year-old female with past medical history significant for COPD, chronic oxygen dependence, chronic ongoing tobacco dependence, hyperlipidemia, hypertension, among other things. Patient reports over the past 1 month she has had 3 episodes of what she attributed to be panic attacks. She was acutely short of breath followed by anxiety. Of note, also had multiple episodes of syncope over the last few months. On December she was evaluated at [facility]. Reportedly underwent heart catheterization, I do not believe she received any percutaneous coronary intervention. She was found to have significant valvular heart disease on transthoracic echocardiogram, officia l results are not available to me at this time.. Reported affected valves include severe mitral regurgitation and at least moderate to severe aortic regurgitation. Yesterday, patient was transferred to [facility] for ENRIQUE and cardiothoracic surgery consult. Patient is currently in the intensive care unit room 263. She is sitting up in bed on 3 L/min nasal cannula. SpO2 is 100% at rest. Not in any respiratory distress. Reportedly normally wears 2 to 3 L nasal cannula at bedtime. She does have history of COPD and normally utilizes a combination of Trelegy maintenance inhaler and albuterol nebs. She still smokes approximately 1 pack/day. She is wheezing. Denies any infectious symptoms. No change in chronic cough, sputum production, chest pain, fever. We are waiting on chest x-ray. Currently on a combination of Pulmicort, DuoNebs, and IV Solu-Medrol. CBC from outside facility: WBC count 10, hemoglobin 9.9, hematocrit 30.8, platelets 202. BMP from outside facility includes a sodium 143, potassium 4.2, chloride 108, serum bicarb 32, BUN 15, creatinine 0.88, glucose 100. Troponins were mildly elevated. Hemodynamics are stable. On today's evaluation of 02/03/2024, I am seeing the patient for a follow-up. The patient is currently on room air oxygen. ENRIQUE was completed was found to have severe mitral regurgitation, in addition to reversal of flow in the pulmonary veins as well as dilated left atrium and moderate to severe tricuspid regurgitation. Her current cardiac rhythm remains sinus. The patient is hemodynamic stable on room air oxygen. The patient is on DuoNeb nebulized treatments [id number]. The patient is also on IV Solu-Medrol regarding COPD and a dose of 40 mg every 8 hours. Most recent chest x-ray from yesterday showed some mild pulm vascular congestion. Carotid Dopplers showed no critically abnormal stenosis involving the coronary arteries. The patient is awaiting recommendations from cardiothoracic surgery regarding valve surgery. The patient is edentulous. No new labs are available from today. Medications remain unchanged and the patient is currently on Lasix 40 mg p.o. daily the patient is also on metoprolol 75 mg p.o. daily. She is on Celexa and Wellbutrin regarding history of depression. Objective - Vital Signs Vital signs: Vital Signs Temp 98 F 02/03/24 16:00 Pulse 68 02/03/24 16:00 Resp 16 02/03/24 16:00 BP 130/72 02/03/24 16:00 Pulse Ox 99 02/03/24 16:00 FiO2 Intake & Output 02/03/24 02/03/24 02/04/24 06:59 18:59 06:59 Intake Total 815 Output Total 350 Balance 465 Weight 53.6 kg Intake: IV 75 Oral 740 Output: Urine 350 Other: Voiding Method Toilet Toilet # Voids 1 1 - Exam GENERAL EXAM: Alert, 68-year-old white female, on room air oxygen comfortable in no apparent distress. HEAD: Normocephalic and atraumatic EYES: Normal reaction of pupils, equal size. NOSE: Clear with pink turbinates. THROAT: No erythema or exudates. NECK: No masses, no JVD. CHEST: No chest wall deformity. LUNGS: Equal air entry with expiratory wheezes heard throughout. Inspiratory right lower lobe crackles. No conversational dyspnea or accessory muscle use at rest CVS: S1 and S2 normal with harsh systolic murmur mainly heard over the left lung apex, regular rhythm. No other extra heart sounds ABDOMEN: No hepatosplenomegaly, active bowel sounds, no guarding or rigidity. SPINE: No scoliosis or deformity SKIN: No rashes CENTRAL NERVOUS SYSTEM: No focal deficits, tone is normal in all 4 extremities. EXTREMITIES: There is no peripheral edema, clubbing, or cyanosis. Peripheral pulses are intact. - Labs CBC & Chem 7: 02/02/24 05:28 02/02/24 05:28 Assessment and Plan Assessment: Valvular heart disease, patient transferred from outside facility for cardiothoracic consult. ENRIQUE confirmed presence of severe mitral regurgitation, moderate-severe tricuspid regurgitation and preserved biventricular function Acute COPD exacerbation, improving Acute on chronic hypoxemic respiratory failure, secondary to a combination of above. Chest x-ray obtained and demonstrating central vascular congestion and right-sided pleural effusion. Suspected acute CHF exacerbation. The patient has responded the patient is currently on room air oxygen. Oxygenation improved. Anemia, normocytic normochromic Chronic ongoing tobacco dependence, 1 pack/day smoker with over [id number] history History of hyperlipidemia History of hypertension Chronic back pain and she is on Neurontin, and hydrocodone Depression Migraines Smoker Plan: Oxygenation has improved and the patient is currently on room air oxygen Hemodynamically stable ENRIQUE was completed and the results were noted Cardiothoracic surgery consulted Receiving Lasix 40 mg daily Continue combination of budesonide, formoterol, DuoNebs Discontinued IV Solu-Medrol Smoking cessation counseling performed, greater than 10 minutes. Obtaining bedside spirometry Carotid Dopplers are negative Nicotine patch offered. Protonix for GI prophylaxis Heparin for DVT prophylaxis The patient will be transferred to telemetry unit. Cardiology on the case. Cardiothoracic surgery is on the case.
[2024-02-03] MEDS: MUPIROCIN 2% OINT 22 GM TUBE NASAL SCH (21:13)
--- NOTE | 2024-02-04 00:06 | PN ---
PROGRESS NOTE SUBJECTIVE: She is admitted for possible mitral valve surgery. She had a procedure by Dr. De La Garza today, transesophageal echo. Conclusion was thickened mitral valve leaflets with a hockey-stick appearance of the anterior mitral leaflet with severe mitral regurgitation, dilated left atrium, reverse flow in the pulmonary veins, moderate to severe tricuspid regurgitation, normal biventricular systolic function, mild aortic insufficiency. Plan is for left heart catheterization in preparation for valve surgery. She just had a heart catheterization recently, which shows minimal blockage in the coronary arteries. OBJECTIVE: LUNGS: Decreased breath sounds. HEART: S1, S2. EXTREMITIES: No edema. VITAL SIGNS: Temperature 98.4, pulse 57, respirations 12 to 16, blood pressure 90/56. ASSESSMENT AND PLAN: Possible cardiac surgery for the mitral valve, pending evaluation by Cardiac Surgery, which Dr. De La Garza had talked to the doctor prior to coming here. PROGNOSIS: Guarded. MMODL / IJN: [id number] /
[2024-02-04 07:39] LABS: Anisocytosis Slight; Basophils % (A) 0 %; Eosinophils % (A) 0 %; HGB 12.1 gm/dL (11.4-16.0); Hypochromasia Moderate; Lymphocytes % (A) 16 %; MCH 29.1 pg (25.0-35.0); MCHC 31.8 g/dL (31.0-37.0); MCV 91.4 fL (80.0-100.0); Mean Platelet Volume 7.7; Monocytes # (A) 0.8 k/uL (0-1.0); Monocytes % (A) 6 %; Neutrophils # (A) 9.6 k/uL (1.3-7.7); Neutrophils % (A) 77 %; Platelet Count 435 k/uL (150-450); RBC 4.15 m/uL (3.80-5.40); RDW 17.6 % (11.5-15.5); WBC 12.5 k/uL (3.8-10.6)
[2024-02-04 07:40] LABS: Partial Thromboplastin Time 24.3 sec (22.0-30.0)
[2024-02-04 07:56] LABS: ALT 17 U/L (4-34); AST 20 U/L (14-36); African American GFR (CKD) 63 (>60 ml/min/1.73 sqM); Albumin 4.2 g/dL (3.5-5.0); Alkaline Phosphatase 58 U/L (38-126); Anion Gap 9 mmol/L; Blood Urea Nitrogen 36 mg/dL (7-17); Calcium 9.8 mg/dL (8.4-10.2); Carbon Dioxide 31 mmol/L (22-30); Chloride 97 mmol/L (98-107); Glucose 70 mg/dL (74-99); Magnesium 2.4 mg/dL (1.6-2.3); Non-African American GFR(CKD) 55 (>60 ml/min/1.73 sqM); Potassium 3.5 mmol/L (3.5-5.1); Sodium 137 mmol/L (137-145); Total Protein 6.4 g/dL (6.3-8.2)
--- NOTE | 2024-02-04 08:19 | XR ---
EXAMINATION TYPE: XR chest 1V portable DATE OF EXAM: 02/04/2024 Comparison: 02/02/2024 Clinical History: 68-year-old female Preop Cardiac surgery Findings: Heart is borderline enlarged. Mild interstitial density. Hyperinflation. Trace right pleural effusion persists. Interstitium appears slightly improved from prior. Some mild patchy density at the left ba se, probably atelectasis. Impression: Suspect COPD. There may be mild pulmonary vascular congestion though the interstitium is improved fro m 02/02/2024. Trace right pleural effusion persists.
[2024-02-04] MEDS ORDERED: Potassium Replacement Protocol 1 EACH MISC MISCELLANE PRN (08:29)
--- NOTE | 2024-02-04 08:58 | US ---
EXAMINATION TYPE: US arterial LE single level DATE OF EXAM: 02/04/2024 8:35 AM CLINICAL INDICATION: Female, 68 years old with history of Ankle Brachial Index (HUMA) ; History of: Smoker: Previous Hypertension: No Diabetic: no Hyperlipidemia: Yes TIA/CVA: na Previous Vascular Surgery: no CAD: yes LA: no Vascular Ulcers: no Claudication: no Gangrene: no Doppler Waveforms: Right: Multiphasic Left: Multiphasic Right Brachial Pressure: Deferred due to IV Left Brachial Pressure: 98 Ankle-Brachial Indices: Right: 1.1 Left: 1.2 (Vessel hardening > 1.4; Normal 0.9 - 1.4, Moderate 0.7 - 0.9, Severe 0.5-0.7) IMPRESSION: Normal bilateral HUMA
--- NOTE | 2024-02-04 09:08 | P.PN ---
Subjective Progress Note Date: 02/04/24 Principal diagnosis: Severe mitral valve regurgitation, moderate to severe tricuspid valve regurgitation, moderate aortic insufficiency per transthoracic echocardiogram, severe pulmonary hypertension, preserved left ventricular systolic function, EF 55-60%. History of mild coronary artery disease, hyperlipidemia, COPD on home oxygen at night and PRN, recent pneumonia, GERD, previous tobacco dependence, occasional marijuana use, family history of coronary artery disease with mother from myocardial infarction in her 70s. The patient was seen and examined in follow-up today February 04, 2024 at her bedside on the third floor cardiac stepdown unit. She is currently sitting up to the bedside chair, is awake, alert, oriented x 3 and is in no acute apparent distress. Denies any complaints of pain or shortness of breath at this time, although is complaining of some feelings of anxiousness as Dr. Cody from cardiothoracic surgery came in yesterday to discuss cardiac surgery. She is currently scheduled for mitral valve repair/possible replacement, tricuspid va lve repair, exclusion left atrial appendage and intraoperative transesophageal echocardiogram for tomorrow February 05, 2024 to be performed by Dr. Cody. Risks and benefits of surgery were discussed including the STS risk score. Knowing and understanding the risks the patient wishes to proceed with the surgical option. A 5 m walk test was completed with the patient this morning, time 1: 3.30 seconds, time 2: 2.96 seconds, time 3: 3.13 seconds. The patient tolerated the 5 m walk test without difficulty or complaints. Patient remains hemodynamically stable and is currently on no inotropic or pressor support. Oxygen saturations are 97% on room air and she is achieving 1000 mL on her brandon ntive spirometry with encouragement. Remote telemetry is showing sinus bradycardia heart rate 55 bpm. Laboratory and chest x-ray results were reviewed. Objective - Vital Signs Vital signs: Vital Signs Temp 97.6 F 02/03/24 20:30 Pulse 67 02/04/24 04:15 Resp 16 02/04/24 04:15 BP 98/59 02/04/24 04:15 Pulse Ox 97 02/04/24 04:15 FiO2 Intake & Output 02/03/24 02/04/24 02/04/24 18:59 06:59 18:59 Intake Total 815 Output Total 350 Balance 465 Weight 51.5 kg Intake: IV 75 Oral 740 Output: Urine 350 Other: Voiding Method Toilet Toilet # Voids 1 - Exam CONSTITUTIONAL: Sitting up to the bedside chair on the cardiac stepdown unit, appears comfortable, cooperative, no apparent acute distress. HEENT: Neck is supple, no JVD, no lymphadenopathy. RESPIRATORY: Lungs sounds essentially clear throughout with few scattered crackles, diminished to her bilateral bases, right greater than left. Respirations are symmetrical and nonlabored. Currently on room air with oxygen saturations 97%. Able to achieve 1000 mL on her incentive spirometry. Strong cough. CARDIOVASCULAR: Regular rhythm and rate. S1 and S2 present, negative for S3, or gallop. Positive systolic murmur 2/6 heard best to her left sternal border. Palpable peripheral pulses bilaterally. No calf pain or tenderness noted. GASTROINTESTINAL: Abdomen soft, nontender, nondistended. Active bowel sounds present 4 quadrants. Tolerating diet. Passing flatus. No guarding or rigidity. GENITOURINARY: Continues to void. INTEGUMENTARY: Skin is warm and dry with no evidence of clubbing or cyanosis. NEUROLOGIC: Cranial nerves II through XII intact. No focal deficits. MUSKULOSKELETAL: Able to move all extremities, strength equal bilaterally. PSYCHIATRIC: Alert and oriented to person place and time, appropriate affect, intact judgment and insight. - Allied health notes Allied health notes reviewed: nursing - Labs CBC & Chem 7: 02/04/24 06:45 02/04/24 06:44 Labs: Abnormal Lab Results - Last 24 Hours (Table) 02/04/24 02/04/24 02/04/24 Range/Units 06:44 06:45 07:13 WBC 12.5 H (3.8-10.6) k/uL RDW 17.6 H (11.5-15.5) % Neutrophils # 9.6 H (1.3-7.7) k/uL Chloride 97 L (98-107) mmol/L Carbon Dioxide 31 H (22-30) mmol/L BUN 36 H (7-17) mg/dL Creatinine 1.06 H (0.52-1.04) mg/dL Glucose 70 L (74-99) mg/dL Magnesium 2.4 H (1.6-2.3) mg/dL Crossmatch See Detail - Imaging and Cardiology Chest x-ray: report reviewed, image reviewed Assessment and Plan Assessment: Severe mitral valve regurgitation, moderate to severe tricuspid valve regurgitation, moderate aortic insufficiency per transthoracic echocardiogram Severe pulmonary hypertension Preserved left ventricular systolic function, EF 55-60% History of mild coronary artery disease Hyperlipidemia, treated COPD on home oxygen at night and PRN Recent pneumonia GERD Previous tobacco dependence, quit 1 month ago, [id number] history Occasional marijuana use Family history of coronary artery disease with mother from myocardial infarction in her 70s Plan: Continue current medication regimen, continue aspirin and beta-jose. Encourage incentive spirometry use 10 times every hour while awake. Increase activity as tolerated. 5 m walk test completed this morning, patient tolerated well. Time 1: 3.30 seconds, time 2: 2.96 seconds, time 3: 3.13 seconds. STS risk score was calculated and discussed with the patient. Clinical frailty score has been calculated, clinical frailty score of 4. The patient is scheduled for mitral valve repair/possible replacement, tricuspid valve repair, exclusion left atrial appendage and intraoperative transesophageal echocardiogram for tomorrow February 05, 2024 to be performed by Dr. Cody. Preoperative teaching has been reinforced with the patient. The importance of risk modification including continued smoking cessation has been discussed with the patient. N.p.o. after midnight. Medical management of other comorbidities per internal medicine. More recommendations to follow based on patient's clinical course. Time with Patient: Greater than 30
[2024-02-04] MEDS: POTASSIUM CHLORIDE ER 20 MEQ TAB.ER PO SCH (09:39)
[2024-02-04 11:02] LABS: Chol/HDL Ratio 5.48 Ratio; LDL Cholesterol,Calculated 223.7 mg/dL (0.0-131.0)
--- NOTE | 2024-02-04 12:14 | P.PN ---
Subjective HISTORY OF PRESENT ILLNESS: Patient examined this morning the bedside. Patient currently denies chest pain or pressure. She denies shortness of breath. Vital signs are stable. PHYSICAL EXAM: VITAL SIGNS: Reviewed. GENERAL: Well-developed in no acute distress. NECK: Supple. No JVD or thyromegaly LUNGS: Respirations even and unlabored. Lungs essentially clear to auscultation bilaterally. HEART: Regular rate and rhythm. S1 and S2 heard. + systolic murmur EXTREMITIES: Normal range of motion. No clubbing or cyanosis. Peripheral pulses intact. No lower extremity edema ASSESSMENT: Rheumatic heart disease, severe mitral regurgitation and moderate to severe tricuspid regurgitation per ENRIQUE Severe pulmonary hypertension Acute COPD exacerbation, on home oxygen at night and as needed History of hypertension History of hyperlipidemia Nicotine dependence with recent smoking cessation, quit 1 month ago PLAN: Continue current cardiac medications Patient is scheduled for mitral valve repair/possible replacement and tricuspid valve repair tomorrow with Dr. Cody Further recommendations pending patient course Nurse practitioner note has been reviewed by physician. Signing provider agrees with the documented findings, assessment, and plan of care documented by TEAM LEAD as a scribe. Objective - Vital Signs Vital signs: Vital Signs Temp 97.3 F L 02/04/24 12:00 Pulse 60 02/04/24 12:00 Resp 16 02/04/24 12:00 BP 128/63 02/04/24 12:00 Pulse Ox 97 02/04/24 12:00 FiO2 Intake & Output 02/03/24 02/04/24 02/04/24 18:59 06:59 18:59 Intake Total 815 240 Output Total 350 Balance 465 240 Weight 51.5 kg Intake: IV 75 Oral 740 240 Output: Urine 350 Other: Voiding Method Toilet Toilet # Voids 1 - Labs CBC & Chem 7: 02/04/24 06:45 02/04/24 06:44 Labs: Abnormal Lab Results - Last 24 Hours (Table) 02/04/24 02/04/24 02/04/24 Range/Units 06:44 06:45 07:13 WBC 12.5 H (3.8-10.6) k/uL RDW 17.6 H (11.5-15.5) % Neutrophils # 9.6 H (1.3-7.7) k/uL Chloride 97 L (98-107) mmol/L Carbon Dioxide 31 H (22-30) mmol/L BUN 36 H (7-17) mg/dL Creatinine 1.06 H (0.52-1.04) mg/dL Glucose 70 L (74-99) mg/dL Magnesium 2.4 H (1.6-2.3) mg/dL Triglycerides 218.00 H (0.00-149.00) mg/dL Cholesterol 327.00 H (0.00-200.00) mg/dL LDL Cholesterol, Calc 223.7 H (0.0-131.0) mg/dL VLDL Cholesterol, Calc 43.60 H (5.00-40.00) mg/dL Crossmatch See Detail Microbiology - Last 24 Hours (Table) 02/02/24 18:00 Nasal Screen MRSA/MSSA - Final Nasopharyngeal Swab
--- NOTE | 2024-02-04 14:57 | P.PN ---
Subjective Progress Note Date: 02/04/24 Patient is a 68-year-old female with past medical history significant for COPD, chronic oxygen dependence, chronic ongoing tobacco dependence, hyperlipidemia, hypertension, among other things. Patient reports over the past 1 month she has had 3 episodes of what she attributed to be panic attacks. She was acutely short of breath followed by anxiety. Of note, also had multiple episodes of syncope over the last few months. On December she was evaluated at [facility]. Reportedly underwent heart catheterization, I do not believe she received any percutaneous coronary intervention. She was found to have significant valvular heart disease on transthoracic echocardiogram, officia l results are not available to me at this time.. Reported affected valves include severe mitral regurgitation and at least moderate to severe aortic regurgitation. Yesterday, patient was transferred to [facility] for ENRIQUE and cardiothoracic surgery consult. Patient is currently in the intensive care unit room 263. She is sitting up in bed on 3 L/min nasal cannula. SpO2 is 100% at rest. Not in any respiratory distress. Reportedly normally wears 2 to 3 L nasal cannula at bedtime. She does have history of COPD and normally utilizes a combination of Trelegy maintenance inhaler and albuterol nebs. She still smokes approximately 1 pack/day. She is wheezing. Denies any infectious symptoms. No change in chronic cough, sputum production, chest pain, fever. We are waiting on chest x-ray. Currently on a combination of Pulmicort, DuoNebs, and IV Solu-Medrol. CBC from outside facility: WBC count 10, hemoglobin 9.9, hematocrit 30.8, platelets 202. BMP from outside facility includes a sodium 143, potassium 4.2, chloride 108, serum bicarb 32, BUN 15, creatinine 0.88, glucose 100. Troponins were mildly elevated. Hemodynamics are stable. On today's evaluation of 02/03/2024, I am seeing the patient for a follow-up. The patient is currently on room air oxygen. ENRIQUE was completed was found to have severe mitral regurgitation, in addition to reversal of flow in the pulmonary veins as well as dilated left atrium and moderate to severe tricuspid regurgitation. Her current cardiac rhythm remains sinus. The patient is hemodynamic stable on room air oxygen. The patient is on DuoNeb nebulized treatments [id number]. The patient is also on IV Solu-Medrol regarding COPD and a dose of 40 mg every 8 hours. Most recent chest x-ray from yesterday showed some mild pulm vascular congestion. Carotid Dopplers showed no critically abnormal stenosis involving the coronary arteries. The patient is awaiting recommendations from cardiothoracic surgery regarding valve surgery. The patient is edentulous. No new labs are available from today. Medications remain unchanged and the patient is currently on Lasix 40 mg p.o. daily the patient is also on metoprolol 75 mg p.o. daily. She is on Celexa and Wellbutrin regarding history of depression. On today's evaluation of 02/04/2024, the patient is being seen for a follow-up. Patient is doing well. She was transferred out of the intensive care unit yesterday. The plan is to proceed with cardiac surgery in the morning. The patient has severe mitral regurgitation and this has been confirmed by ENRIQUE. The patient is scheduled to undergo surgery with mitral valve repair/possible replacement in a.m. on 02/05/2024. The patient is currently on room air oxygen. No signs of any fluid overload. No cardiac arrhythmias. No chest pain. No significant shortness of breath. The white cell count is 12.5 with a hemoglobin 12.1 and a platelet count of 435. Normal coagulation profile. BUN is 36 with a creatinine of 1 and sodium is at 137 and serum bicarbonate 31. LDL cholesterol is at 223. Objective - Vital Signs Vital signs: Vital Signs Temp 97.8 F 02/04/24 08:00 Pulse 53 L 02/04/24 08:00 Resp 16 02/04/24 08:00 BP 109/69 02/04/24 08:00 Pulse Ox 98 02/04/24 08:00 FiO2 Intake & Output 02/03/24 02/04/24 02/04/24 18:59 06:59 18:59 Intake Total 815 240 Output Total 350 Balance 465 240 Weight 51.5 kg Intake: IV 75 Oral 740 240 Output: Urine 350 Other: Voiding Method Toilet Toilet # Voids 1 - Exam GENERAL EXAM: Alert, 68-year-old white female, on room air oxygen comfortable in no apparent distress. HEAD: Normocephalic and atraumatic EYES: Normal reaction of pupils, equal size. NOSE: Clear with pink turbinates. THROAT: No erythema or exudates. NECK: No masses, no JVD. CHEST: No chest wall deformity. LUNGS: Equal air entry with expiratory wheezes heard throughout. Inspiratory right lower lobe crackles. No conversational dyspnea or accessory muscle use at rest CVS: S1 and S2 normal with harsh systolic murmur mainly heard over the left lung apex, regular rhythm. No other extra heart sounds ABDOMEN: No hepatosplenomegaly, active bowel sounds, no guarding or rigidity. SPINE: No scoliosis or deformity SKIN: No rashes CENTRAL NERVOUS SYSTEM: No focal deficits, tone is normal in all 4 extremities. EXTREMITIES: There is no peripheral edema, clubbing, or cyanosis. Peripheral pulses are intact. - Labs CBC & Chem 7: 02/04/24 06:45 02/04/24 06:44 Labs: Abnormal Lab Results - Last 24 Hours (Table) 02/04/24 02/04/24 02/04/24 Range/Units 06:44 06:45 07:13 WBC 12.5 H (3.8-10.6) k/uL RDW 17.6 H (11.5-15.5) % Neutrophils # 9.6 H (1.3-7.7) k/uL Chloride 97 L (98-107) mmol/L Carbon Dioxide 31 H (22-30) mmol/L BUN 36 H (7-17) mg/dL Creatinine 1.06 H (0.52-1.04) mg/dL Glucose 70 L (74-99) mg/dL Magnesium 2.4 H (1.6-2.3) mg/dL Crossmatch See Detail Microbiology - Last 24 Hours (Table) 02/02/24 18:00 Nasal Screen MRSA/MSSA - Final Nasopharyngeal Swab Assessment and Plan Assessment: Valvular heart disease, patient transferred from outside facility for cardiothoracic consult. ENRIQUE confirmed presence of severe mitral regurgitation, moderate-severe tricuspid regurgitation and preserved biventricular function, and the patient is scheduled to undergo mitral valve replacement/repair on 02/05/2024. Acute COPD exacerbation, improving, no significant shortness of breath on today's evaluation Acute on chronic hypoxemic respiratory failure, secondary to a combination of above. Chest x-ray obtained and demonstrating central vascular congestion and right-sided pleural effusion. Suspected acute CHF exacerbation. The patient has responded the patient is currently on room air oxygen. Oxygenation improved. The patient is currently on room air oxygen Anemia, normocytic normochromic Chronic ongoing tobacco dependence, 1 pack/day smoker with over [id number] his tory History of hyperlipidemia History of hypertension Chronic back pain and she is on Neurontin, and hydrocodone Depression Migraines Smoker Plan: Oxygenation has improved and the patient is currently on room air oxygen Hemodynamically stable ENRIQUE was completed and the results were noted Cardiothoracic surgery consulted and the patient is going to undergo a mitral valve replacement/repair in a.m. Continue Lasix 40 mg daily Continue combination of budesonide, formoterol, DuoNebs Steroids have been discontinued Smoking cessation counseling performed, greater than 10 minutes. Obtaining bedside spirometry Carotid Dopplers are negative Nicotine patch offered. Protonix for GI prophylaxis Heparin for DVT prophylaxis Will review the bedside spirometry The patient will be transferred to telemetry unit. Cardiology on the case. Cardiothoracic surgery is on the case.
[2024-02-04 17:53] LABS: Appearance,Urine Clear (Clear); Bacteria,Urine Rare /hpf; Bilirubin,Urine Negative (Negative); Blood,Urine Negative (Negative); Color,Urine Light Yellow; Glucose,Urine (UA) Negative (Negative); Hyaline Casts,Urine 4 /lpf (0-2); Ketones,Urine Negative (Negative); Leukocyte Esterase,Urine Moderate (Negative); Mucus,Urine Rare /hpf; Nitrite,Urine Negative (Negative); Protein,Urine Negative (Negative); RBC,Urine 1 /hpf (0-5); Specific Gravity,Urine 1.015 (1.001-1.035); Squamous Epithelial Cell,Urine 2 /hpf (0-4); Urobilinogen,Urine <2.0 mg/dL (<2.0); WBC,Urine 3 /hpf (0-5)
--- NOTE | 2024-02-04 20:28 | PN ---
PROGRESS NOTE SUBJECTIVE: A 68-year-old female. OBJECTIVE: VITAL SIGNS: Temperature 97.3, blood pressure 128/63, O2 of 97% on room air, pulse 60, respiratory rate 16 to 18. CARDIOVASCULAR: S1, S2. LUNGS: Transmitted upper sounds. Mild wheeze. GI: Soft. HEMATOLOGY: Negative Homans. PSYCH: Fair mood and affect. White count is 12.5, hemoglobin is 12.1, INR is 1.0. BUN and creatinine are 36 and 1.06. GFR is 55. Cholesterol is high at 327, high LDL 278. Carotid ultrasound shows less than 50% blockage. Lower extremity ultrasound shows brachial indexes 1.1 and 1.2, which are fine. She denies chest pain or pressure. She did have a mitral valve repair and tricuspid valve repair tomorrow with Dr. Cody. Status post COPD exacerbation, hypertension, rheumatic heart disease, may be severe mitral regurg, moderate to severe tricuspid regurg. Prognosis guarded. Surgery is scheduled for tomorrow. Please see further orders. MMODL / IJN: [id number] /
[2024-02-05] MEDS: ASPIRIN 81 MG PO ONE (05:49)
[2024-02-05] MEDS: ATORVASTATIN 10 MG TAB PO ONE (05:49)
[2024-02-05] MEDS: METOPROLOL TARTRATE 12.5 MG TAB PO ONE (05:49)
[2024-02-05 05:59] LABS: Glucose,Whole Blood 92 mg/dL (70-110)
[2024-02-05] MEDS: LACTATED RINGERS 1,000 ML IV SCH (07:07)
[2024-02-05] MEDS: HYDROCORTISONE SUCCINATE 100 MG/2 ML VIAL IV STA (07:08)
[2024-02-05] MEDS: IV FLUID CONTINUATION 1,000 ML IV ONE ×2 (07:10)
[2024-02-05] MEDS ORDERED: MIDAZOLAM HCL 10 MG/10 ML VIAL ONE (08:48)
[2024-02-05] MEDS ORDERED: PROTAMINE SULFATE 10 MG/ML 25 ML VIAL IV ONE (08:48)
[2024-02-05] MEDS ORDERED: TRANEXAMIC 1,000 MG/100ML-NACL PREMIX BAG ONE (08:48)
[2024-02-05] MEDS ORDERED: PROPOFOL 10 MG/ML 20 ML VIAL IV ONE (08:48)
[2024-02-05] MEDS ORDERED: VECURONIUM 10 MG VIAL IV ONE (08:48)
[2024-02-05] MEDS ORDERED: ePHEDrine 50 MG/ML 1 ML VIAL ONE (08:48)
[2024-02-05] MEDS ORDERED: fentaNYL (PF) 50 MCG/ML 50 ML VIAL ONE (08:48)
[2024-02-05] MEDS ORDERED: LIDOCAINE 2% SYG (PF) 100 MG/5 ML ONE (08:48)
--- NOTE | 2024-02-05 10:32 | P.ANPRN ---
Procedure Note - Anesthesia - Invasive Line Right Central Line Time Out Performed: Yes (08) Date of Procedure: 02/05/24 Time of Procedure: 08:23 Location of Patient: Phase I Preparation: Sterile Prep, Sterile Dressing Central Line Location: Internal Jugular (right IJ cordis) Ultrasound Used: Yes Purpose - Visualization and Identification of Vasculature: Yes Needle Guage: 18g angio Image Stored and Saved: Yes Narrative: Invasive line placement per sterile protocol utilized. Anesthesia note Procedure: Right internal jugular central venous catheter insertion: 8.5-Italian Cordis Sterile protocol followed. Right neck prepped. Ultrasound used. Lidocaine 1% used. Using ultrasound local anesthetic was instilled site over right Internal Jugular vein. Angiocath was used to gain access via ultrasound. Once free flow non-pulsatile blood flow was confirmed, 12 inch extension tubing was then placed on Angiocath. Once central venous pressure was confirmed, J-wire was then placed through Angiocath. Angiocath was then withdrawn. Local was instilled at J-wire site. Small skin mackenzie was then made with provided sterile scalpel. 8.5- Italian Cordis was then inserted over the wire while maintaining control of wire at all times. Uneventful insertion with dilation. Free flow nonpulsatile blood flow through Cordis. Hooked up to IV tubing. Secured with suture. Dressings applied. Drapes Removed. Attempts x1.
--- NOTE | 2024-02-05 10:34 | P.ANPRN ---
Procedure Note - Anesthesia - Invasive Line Right Blythe Luis Time Out Performed: Yes (0822) Date of Procedure: 02/05/24 Time of Procedure: 08:33 Location of Patient: Phase I Preparation: Sterile Prep, Sterile Dressing Blythe Luis Line Location: Internal Jugular (righgt) Ultrasound Used: No Purpose - Visualization and Identification of Vasculature: No Image Stored and Saved: No Narrative: Invasive line placement per sterile protocol utilized. Anesthesia note Procedure right Blythe-Luis catheter placed through right internal jugular central venous catheter Sterile protocol maintained from previous procedure. Blythe-Luis catheter sterilely placed in sheath and flushed prior to insertion. After advancing 15 cm Blythe-Luis catheter was then slowly inserted with balloon up. Advanced through CVP, RV to PA waveform. Blythe-Luis catheter wedged around 50 cm. Balloon down. Catheter withdrawn 5 cm. . No wedge. Proximal and distal sites locked on sheath. Attempts x1. Sterile drapes removed and dressings applied.
--- NOTE | 2024-02-05 10:37 | P.ANPRN ---
Procedure Note - Anesthesia - ENRIQUE Intraop Pre Bypass ENRIQUE Intraop - Anesthesia Indication: MR, TR, AI Date of Procedure: 02/05/24 Pre-operative Diagnosis: Mitral regurg, tricuspid regurg Post-operative Diagnosis: same Surgeon: Guillermo Cody Left Ventricle: wnl Ejection Fraction: Normal Regional Wall Motion Abnormalities: None Left Ventricle Hypertrophy: No R. Ventricle Function: Normal Anatomy: Trileaflet Aortic Stenosis: None Aortic Regurgitation: Trace Mitral Valve: thickened leaflefts, anterior leaflet hockey stick def. Mitral Stenosis: None Mitral Regurgitation: Severe (central) Tricuspid Stenosis: None Tricuspid Regurgitation: Mild Pulmonic Stenosis: None Pulmonic Regurgitation: None R. Atrial Dilation: No R. Atrial PFO: No L. Atrial Dilation: No Aortic Dissection: No Aortic Calcification: None Plural Effusion: None
[2024-02-05 10:44] LABS: ABG Base Excess 3.2 mmol/L; ABG HCO3 29 mmol/L (21-25); ABG Hematocrit 28 % (34.0-46.0); ABG Ionized Calcium 4.7 mg/dL (4.5-5.3); ABG Oxygen Saturation >99.4 % (94-97); ABG PCO2 46 mmHg (35-45); ABG PO2 228 mmHg (83-108); ABG Potassium Whole Blood 3.2 mmol/L (3.4-4.5); ABG Sodium Whole Blood 140 mmol/L (135-146)
[2024-02-05] MEDS: SODIUM CHLORIDE 0.9% 500 ML 500 ML with HEPARIN SODIUM,PORCINE (1 ML) 5,000 UNIT IV ONE (10:51)
[2024-02-05] MEDS: ceFAZolin 1,000 MG in SODIUM CHLORIDE 0.9% 1,000 ML IRRIGATION ONE (10:51)
[2024-02-05 10:52] LABS: Glucose,Whole Blood 96 mg/dL (70-110)
[2024-02-05 11:12] LABS: ABG HCO3 25 mmol/L (21-25); ABG Ionized Calcium 3.7 mg/dL (4.5-5.3); ABG PCO2 38 mmHg (35-45); ABG PH 7.43 (7.35-7.45); ABG Potassium Whole Blood 4.2 mmol/L (3.4-4.5); ABG Sodium Whole Blood 134 mmol/L (135-146)
[2024-02-05 11:22] LABS: Glucose,Whole Blood 100 mg/dL (70-110)
[2024-02-05 11:50] LABS: ABG HCO3 28 mmol/L (21-25); ABG PCO2 51 mmHg (35-45); ABG PH 7.35 (7.35-7.45); ABG PO2 372 mmHg (83-108); ABG Potassium Whole Blood 4.9 mmol/L (3.4-4.5); ABG Sodium Whole Blood 136 mmol/L (135-146)
[2024-02-05 11:51] LABS: Glucose,Whole Blood 129 mg/dL (70-110)
[2024-02-05 12:18] LABS: ABG HCO3 30 mmol/L (21-25); ABG Ionized Calcium 4.2 mg/dL (4.5-5.3); ABG PCO2 65 mmHg (35-45); ABG PH 7.27 (7.35-7.45); ABG PO2 350 mmHg (83-108); ABG Potassium Whole Blood 4.5 mmol/L (3.4-4.5); ABG Sodium Whole Blood 138 mmol/L (135-146)
[2024-02-05 12:25] LABS: Glucose,Whole Blood 132 mg/dL (70-110)
[2024-02-05] MEDS: INSULIN REGULAR 100 UNIT in SODIUM CHLORIDE 0.9% 100 ML IV ONE (12:36)
[2024-02-05] MEDS: NOREPINEPHRINE 4 MG in SODIUM CHLORIDE 0.9% 250 ML IV ONE (12:36)
[2024-02-05] MEDS: CLEVIDIPINE BUTYRATE 25 MG in EMPTY BAG 1 BAG IV ONE (12:36)
[2024-02-05] MEDS: NITROGLYCERIN-D5W PMX 50 MG in DEXTROSE/WATER 1 250ML.BAG IV ONE (12:36)
[2024-02-05] MEDS: MD COMMUNICATION TO PHARMACY 1 EACH MISC PO ONE ×4 (12:37)
[2024-02-05] MEDS: ALBUMIN HUMAN 5% 500 ML in EMPTY BAG 1 BAG IVPB ONE ×6 (12:37→12:38)
[2024-02-05] MEDS: ALBUMIN HUMAN 25% 50 ML in EMPTY BAG 1 BAG IVPB ONE (12:37)
[2024-02-05] MEDS: CALCIUM CHLORIDE 100 MG/ML 10 ML SYRINGE IVP ONE (12:38)
[2024-02-05] MEDS: HEPARIN SODIUM 1,000 UN/ML (10ML VL) IV ONE (12:39)
[2024-02-05] MEDS: CHLORHEXIDINE GLUCONATE 15 ML CUP MUCOUS MEM ONE (12:39)
[2024-02-05] MEDS: HEPARIN SODIUM,PORCINE (1 ML) 5,000 UNIT in SODIUM CHLORIDE 0.9% 500 ML 500 ML IV ONE (12:39)
[2024-02-05] MEDS: MANNITOL 25% 12.5 GM/50 ML VIAL IV ONE ×2 (12:40)
[2024-02-05] MEDS: MAGNESIUM SULFATE 16.24 MEQ in EMPTY SYRINGE 1 SYR IV ONE (12:40)
[2024-02-05] MEDS: PHENYLEPHRINE 40 MG in SODIUM CHLORIDE 0.9% 250 ML IV ONE (12:40)
[2024-02-05] MEDS: NITROGLYCERIN-D5W PMX 25 MG/250 ML BTL IV ONE (12:40)
[2024-02-05] MEDS: PROTAMINE SULFATE 10 MG/ML 25 ML VIAL IV ONE (12:40)
[2024-02-05] MEDS: ELECTROLYTE-A SOLUTION 1,000 ML with POTASSIUM CHLORIDE 100 MEQ, MAGNESIUM SULFATE 16 M... IV ONE (12:41)
[2024-02-05] MEDS: ELECTROLYTE-A SOLUTION 1,000 ML with POTASSIUM CHLORIDE 40 MEQ, MAGNESIUM SULFATE 16 ME... IV ONE (12:41)
[2024-02-05] MEDS: TRANEXAMIC ACID 2,000 MG in SODIUM CHLORIDE 0.9% 80 ML IV ONE (12:41)
[2024-02-05] MEDS: PROTAMINE SULFATE 250 MG in EMPTY BAG 1 BAG IV ONE (12:41)
[2024-02-05] MEDS: SODIUM BICARB 8.4% 50 ML SYR (1 MEQ/ML) IV ONE (12:41)
[2024-02-05 12:46] LABS: ABG HCO3 24 mmol/L (21-25); ABG Ionized Calcium 3.8 mg/dL (4.5-5.3); ABG PCO2 23 mmHg (35-45); ABG PO2 366 mmHg (83-108); ABG Potassium Whole Blood 4.8 mmol/L (3.4-4.5); ABG Sodium Whole Blood 136 mmol/L (135-146)
[2024-02-05 13:24] LABS: ABG HCO3 26 mmol/L (21-25); ABG Ionized Calcium 4.4 mg/dL (4.5-5.3); ABG PCO2 49 mmHg (35-45); ABG PH 7.33 (7.35-7.45); ABG Potassium Whole Blood 4.7 mmol/L (3.4-4.5); ABG Sodium Whole Blood 140 mmol/L (135-146)
[2024-02-05 13:25] LABS: Glucose,Whole Blood 124 mg/dL (70-110)
--- NOTE | 2024-02-05 13:33 | P.ANPRN ---
Procedure Note - Anesthesia - ENRIQUE Intraop Post Bypass ENRIQEU Intraop Post Bypass Procedure Performed: Mitral Valve Replacement, Tricuspid valve repair Left Ventricle: unchanged Ejection Fraction: Normal Regional Wall Motion Abnormalities: None R. Ventricle Function: Normal Aortic Valve: Unchanged Mitral Valve: prosthetic mitral valve. in place, opens well. no regurgitation. mean residual gradient 1.5 Tricuspid: ring in place, trace regurgitation residual. Pulmonic: Unchanged Aortic Dissection: No
[2024-02-05 13:34] LABS: ABG Base Excess 0.5 mmol/L; ABG Hematocrit 22 % (34.0-46.0); ABG Oxygen Saturation 99.3 % (94-97); ABG PO2 >420 mmHg (83-108); ABG TCO2 24 mmol/L (19-24)
[2024-02-05 13:35] LABS: ABG Base Excess 2.2 mmol/L; ABG Hematocrit 22 % (34.0-46.0); ABG Oxygen Saturation 99.4 % (94-97)
[2024-02-05 13:36] LABS: ABG Base Excess 2.9 mmol/L; ABG TCO2 30 mmol/L (19-24)
[2024-02-05 13:37] LABS: ABG Hematocrit 22 % (34.0-46.0)
[2024-02-05 13:38] LABS: ABG Hematocrit 20 % (34.0-46.0); ABG Oxygen Saturation 99.4 % (94-97); ABG PH 7.63 (7.35-7.45)
[2024-02-05 13:39] LABS: ABG Base Excess 0.1 mmol/L; ABG Hematocrit 24 % (34.0-46.0); ABG Oxygen Saturation 99.4 % (94-97); ABG PO2 >420 mmHg (83-108)
[2024-02-05] MEDS ORDERED: DEXTROSE 5% IN WATER 100 ML with AMIODARONE 150 MG IV PRN (14:00)
[2024-02-05] MEDS ORDERED: AMIODARONE 360 MG in DEXTROSE 5% IN WATER 200 ML IV PRN (14:14)
[2024-02-05] MEDS ORDERED: AMIODARONE 450 MG in DEXTROSE 5% IN WATER 250 ML IV PRN (14:14)
[2024-02-05] MEDS ORDERED: DEXTROSE 50% SYRINGE 50 ML IVP PRN ×2 (14:14)
[2024-02-05] MEDS ORDERED: Potassium Replacement Protocol 1 EACH MISC MISCELLANE PRN (14:22)
[2024-02-05] MEDS ORDERED: hydrALAZINE HCL 20 MG/ML 1 ML VIAL IVP PRN (14:22)
[2024-02-05] MEDS ORDERED: Magnesium Replacement Protocol 1 EACH MISC MISCELLANE PRN (14:22)
[2024-02-05] MEDS ORDERED: BENZOCAINE/MENTHOL LOZENG 1 EACH LOZENGE MUCOUS MEM PRN (14:22)
[2024-02-05] MEDS ORDERED: IPRATROPIUM-ALBUTEROL 3 ML NEB INHALATION PRN (14:22)
[2024-02-05 14:50] LABS: Glucose,Whole Blood 131 mg/dL (70-110)
[2024-02-05] MEDS: SODIUM CHLORIDE 0.9% 1,000 ML IV SCH (15:00)
[2024-02-05 15:02] LABS: Anisocytosis Slight; Basophils % (A) 0 %; Eosinophils % (A) 0 %; HCT 22.5 % (34.0-46.0); Hypochromasia Moderate; Lymphocytes # (A) 0.5 k/uL (1.0-4.8); Lymphocytes % (A) 6 %; MCH 29.6 pg (25.0-35.0); MCHC 32.3 g/dL (31.0-37.0); MCV 91.8 fL (80.0-100.0); Mean Platelet Volume 9.1; Monocytes # (A) 0.4 k/uL (0-1.0); Monocytes % (A) 5 %; Neutrophils # (A) 6.9 k/uL (1.3-7.7); Neutrophils % (A) 88 %; RBC 2.45 m/uL (3.80-5.40); WBC 7.9 k/uL (3.8-10.6)
[2024-02-05] MEDS: IPRATROPIUM-ALBUTEROL 3 ML NEB INHALATION SCH (15:05)
[2024-02-05 15:07] LABS: Ionized Calcium 4.4 mg/dL (4.5-5.3)
[2024-02-05 15:17] LABS: ALT 12 U/L (4-34); AST 67 U/L (14-36); African American GFR (CKD) >90 (>60 ml/min/1.73 sqM); Albumin 2.9 g/dL (3.5-5.0); Alkaline Phosphatase 31 U/L (38-126); Anion Gap 6 mmol/L; Blood Urea Nitrogen 26 mg/dL (7-17); Calcium 7.3 mg/dL (8.4-10.2); Carbon Dioxide 26 mmol/L (22-30); Chloride 104 mmol/L (98-107); Glucose 114 mg/dL (74-99); INR 1.3 (<1.2); Magnesium 2.9 mg/dL (1.6-2.3); Non-African American GFR(CKD) 81 (>60 ml/min/1.73 sqM); Partial Thromboplastin Time 36.4 sec (22.0-30.0); Potassium 4.3 mmol/L (3.5-5.1); Prothrombin Time 13.9 sec (10.0-12.5); Sodium 136 mmol/L (137-145); Total Bilirubin 0.8 mg/dL (0.2-1.3); Total Protein 4.2 g/dL (6.3-8.2)
--- NOTE | 2024-02-05 15:19 | XR ---
EXAMINATION TYPE: XR chest 1V portable DATE OF EXAM: 02/05/2024 3:14 PM CLINICAL INDICATION: Female, 68 years old with history of Post Operative Cardiac Surgery; [facility] COMPARISON: Chest radiographs from 02/04/2024. TECHNIQUE: XR chest 1V portable Frontal view of the chest. FINDINGS: Lungs/Pleura: There is no evidence of pleural effusion, focal consolidation, or pneumothorax. Pulmonary vascularity: Unremarkable. Heart/mediastinum: Cardiomediastinal silhouette is unremarkable. Atherosclerotic calcifications are seen in the aorta. Left atrial appendage occlusion device is present. Valvular repair changes. Musculoskeletal: No acute osseous pathology. Other findings: None Lines/Tubes: Endotracheal tube with distal tip 3.7cm above the christos. Nasogastric tube with its distal tip and side-port projecting under the diaphragm. There is a [place]-Luis catheter with tip projecting over the spine. Bilateral thoracotomy tubes are present without evidence of pneumothorax. Drainage tubes with tips projecting over the mediastinum. IMPRESSION: Post heart surgery changes lines and tubes in appropriate position.
[2024-02-05 15:23] LABS: HGB 7.3 gm/dL (11.4-16.0); Platelet Count 171 k/uL (150-450)
[2024-02-05 15:29] LABS: ABG Base Excess -0.5 mmol/L; ABG HCO3 26 mmol/L (21-25); ABG Oxygen Saturation 100.6 % (94-97); ABG PCO2 49 mmHg (35-45); ABG PH 7.33 (7.35-7.45); ABG TCO2 27 mmol/L (19-24)
[2024-02-05 15:31] LABS: ABG PO2 >420 mmHg (83-108); Allen Test Performed? no
[2024-02-05] MEDS: ALBUMIN HUMAN 5% 250 ML in EMPTY BAG 1 BAG IVPB PRN (15:44)
[2024-02-05] MEDS: NOREPINEPHRINE 4 MG in SODIUM CHLORIDE 0.9% 250 ML IV SCH (15:59)
[2024-02-05] MEDS: CALCIUM GLUCONATE IN NACL 2 GM in SALINE 1 100ML.BAG IVPB PRN (15:59)
[2024-02-05] MEDS: CLEVIDIPINE BUTYRATE 25 MG in EMPTY BAG 1 BAG IV SCH (16:01)
--- NOTE | 2024-02-05 16:01 | P.PN ---
Subjective Progress Note Date: 02/05/24 Patient is a 68-year-old female with past medical history significant for COPD, chronic oxygen dependence, chronic ongoing tobacco dependence, hyperlipidemia, hypertension, among other things. Patient reports over the past 1 month she has had 3 episodes of what she attributed to be panic attacks. She was acutely short of breath followed by anxiety. Of note, also had multiple episodes of syncope over the last few months. On December she was evaluated at [facility]. Reportedly underwent heart catheterization, I do not believe she received any percutaneous coronary intervention. She was found to have significant valvular heart disease on transthoracic echocardiogram, officia l results are not available to me at this time.. Reported affected valves include severe mitral regurgitation and at least moderate to severe aortic regurgitation. Yesterday, patient was transferred to [facility] for ENRIQUE and cardiothoracic surgery consult. Patient is currently in the intensive care unit room 263. She is sitting up in bed on 3 L/min nasal cannula. SpO2 is 100% at rest. Not in any respiratory distress. Reportedly normally wears 2 to 3 L nasal cannula at bedtime. She does have history of COPD and normally utilizes a combination of Trelegy maintenance inhaler and albuterol nebs. She still smokes approximately 1 pack/day. She is wheezing. Denies any infectious symptoms. No change in chronic cough, sputum production, chest pain, fever. We are waiting on chest x-ray. Currently on a combination of Pulmicort, DuoNebs, and IV Solu-Medrol. CBC from outside facility: WBC count 10, hemoglobin 9.9, hematocrit 30.8, platelets 202. BMP from outside facility includes a sodium 143, potassium 4.2, chloride 108, serum bicarb 32, BUN 15, creatinine 0.88, glucose 100. Troponins were mildly elevated. Hemodynamics are stable. On today's evaluation of 02/03/2024, I am seeing the patient for a follow-up. The patient is currently on room air oxygen. ENRIQUE was completed was found to have severe mitral regurgitation, in addition to reversal of flow in the pulmonary veins as well as dilated left atrium and moderate to severe tricuspid regurgitation. Her current cardiac rhythm remains sinus. The patient is hemodynamic stable on room air oxygen. The patient is on DuoNeb nebulized treatments [id number]. The patient is also on IV Solu-Medrol regarding COPD and a dose of 40 mg every 8 hours. Most recent chest x-ray from yesterday showed some mild pulm vascular congestion. Carotid Dopplers showed no critically abnormal stenosis involving the coronary arteries. The patient is awaiting recommendations from cardiothoracic surgery regarding valve surgery. The patient is edentulous. No new labs are available from today. Medications remain unchanged and the patient is currently on Lasix 40 mg p.o. daily the patient is also on metoprolol 75 mg p.o. daily. She is on Celexa and Wellbutrin regarding history of depression. On today's evaluation of 02/04/2024, the patient is being seen for a follow-up. Patient is doing well. She was transferred out of the intensive care unit yesterday. The plan is to proceed with cardiac surgery in the morning. The patient has severe mitral regurgitation and this has been confirmed by ENRIQUE. The patient is scheduled to undergo surgery with mitral valve repair/possible replacement in a.m. on 02/05/2024. The patient is currently on room air oxygen. No signs of any fluid overload. No cardiac arrhythmias. No chest pain. No significant shortness of breath. The white cell count is 12.5 with a hemoglobin 12.1 and a platelet count of 435. Normal coagulation profile. BUN is 36 with a creatinine of 1 and sodium is at 137 and serum bicarbonate 31. LDL cholesterol is at 223. 02/05/2024, the patient is being seen in the intensive care unit immediately after she arrived to the ICU. At this point in time, the patient is sedated and she is on propofol which is at 35 mcg/kg/min. She is well sedated and she is calm and comfortable. She is currently on assist-control mode of mechanical ve ntilation at a rate of 14, tidal volume of 350, FiO2 of 100% and a PEEP of 5. Initial blood gases showed a pH of 7.30 with a pCO2 of 49 and pO2 of 422. Based on that, the FiO2 has been dropped down to 50% and I increased the rate up to 20. Chest x-ray was noted and there is no evidence of any pneumothorax. ET tube is in a good location. Donie-Luis catheter ideally needs to be advanced by a centimeter. The patient has right-sided chest tube, left-sided chest tube and a mediastinal chest tube. Output from the chest was of been noted. The patient has produced approximately 40 cc of bloody material from the mediastinal chest tube, 30 from the right and 10 from the left. No evidence of any air leak. Hemodynamically, the patient's systolic blood pressure is 97 with a diastolic pressure of 56. Cardiac output is at 2.5 with an index of 1.7. Cardiac rhythm is paced at a rate of 83 and the underlying cardiac rhythm is third-degree AV block. Pulmonary artery pressures of 31/19. SVR is elevated. Currently receiving IV albumin 5% a total of 250cc hide the patient will be also started on milrinone.Patient She may also require norepinephrine for blood pressure support. Urine output is adequate at this point in time. In terms of the blood work, the WBC count is at 7.9, hemoglobin 7.3 and a platelet count of 171. BUN is 26 with a creatinine of 0.77 and a sodium levels of 136. The current temperature is at 36. The patient is sitting external warming measures. Calcium level is at 7.3. Objective - Vital Signs Vital signs: Vital Signs Temp 96.4 F L 02/05/24 15:15 Pulse 80 02/05/24 15:15 Resp 14 02/05/24 15:15 BP 101/56 02/05/24 06:47 Pulse Ox 100 02/05/24 15:15 FiO2 50 02/05/24 15:32 Intake & Output 02/04/24 02/05/24 02/05/24 18:59 06:59 18:59 Intake Total 1016 300.7 Output Total 200 2285 Balance 816 -1984.3 Weight 54 kg Intake: IV 240 NS for cardiac output 30 NS for pressure flush 9 Intake, IV Titration 60.7 Amount Sodium Chloride 0.9% 1, 50 000 ml @ 50 mls/hr IV . Q20H KAMINI Rx#:[id number] propofoL 1,000 mg In 10.7 Empty Bag 1 bag @ Titrate IV .Q0M KAMINI Rx#: [id number] Oral 1016 Output: Chest Tube Drainage 60 Lt Pleural 20 Mediastinal 25 Rt Pleural 15 Urine 200 1225 Estimated Blood Loss 1000 Other: Voiding Method Toilet # Voids 3 ABP, PAP, CO, CI - Last Documented Arterial Blood Pressure 126/71 Pulmonary Artery Pressure 31/20 Cardiac Output 2.9 Cardiac Index 1.9 - Exam GENERAL EXAM: Alert, 68-year-old white female, sedated on propofol, intubated on the mechanical ventilator. HEAD: Normocephalic and atraumatic EYES: Normal reaction of pupils, equal size. NOSE: Clear with pink turbinates. THROAT: No erythema or exudates. NECK: No masses, no JVD. The patient has a right IJ Donie-Luis catheter in place CHEST: No chest wall deformity. LUNGS: Equal air entry bilaterally and the patient has a mediastinal, right and left pleural chest tube CVS: S1 and S2 normal with harsh systolic murmur mainly heard over the left lung apex, regular rhythm. No other extra heart sounds, cardiac rhythmis rate of 80 ABDOMEN: No hepatosplenomegaly, active bowel sounds, no guarding or rigidity. SPINE: No scoliosis or deformity SKIN: No rashes CENTRAL NERVOUS SYSTEM: No focal deficits, tone is normal in all 4 extremities. EXTREMITIES: There is no peripheral edema, clubbing, or cyanosis. Peripheral pulses are intact. - Labs CBC & Chem 7: 02/05/24 14:49 02/05/24 14:49 Labs: Abnormal Lab Results - Last 24 Hours (Table) 02/04/24 02/04/24 02/05/24 Range/Units 07:13 17:44 10:48 RBC (3.80-5.40) m/uL Hgb (11.4-16.0) gm/dL Hct (34.0-46.0) % RDW (11.5-15.5) % Lymphocytes # (1.0-4.8) k/uL PT (10.0-12.5) sec INR (<1.2) APTT (22.0-30.0) sec ABG pH (7.35-7.45) ABG pCO2 46 H (35-45) mmHg ABG pO2 228 H (83-108) mmHg ABG HCO3 29 H (21-25) mmol/L ABG Total CO2 (19-24) mmol/L ABG O2 Saturation >99.4 H (94-97) % ABG Hematocrit 28 L (34.0-46.0) % ABG Sodium (135-146) mmol/L ABG Potassium 3.2 L (3.4-4.5) mmol/L ABG Ionized Calcium (4.5-5.3) mg/dL Hemoglobin 9.3 L (11.4-16.0) gm/dL Sodium (137-145) mmol/L BUN (7-17) mg/dL Glucose (74-99) mg/dL POC Glucose (mg/dL) (70-110) mg/dL Calcium (8.4-10.2) mg/dL Ionized Calcium Jaleel (4.5-5.3) mg/dL Magnesium (1.6-2.3) mg/dL AST (14-36) U/L Alkaline Phosphatase (38-126) U/L Total Protein (6.3-8.2) g/dL Albumin (3.5-5.0) g/dL Arterial Blood Potassium 3.2 L (3.4-4.5) mmol/L Ur Leukocyte Esterase Moderate H (Negative) Urine Bacteria Rare H (None) /hpf Hyaline Casts 4 H (0-2) /lpf Urine Mucus Rare H (None) /hpf Crossmatch See Detail 02/05/24 02/05/24 02/05/24 Range/Units 11:16 11:49 11:54 RBC (3.80-5.40) m/uL Hgb (11.4-16.0) gm/dL Hct (34.0-46.0) % RDW (11.5-15.5) % Lymphocytes # (1.0-4.8) k/uL PT (10.0-12.5) sec INR (<1.2) APTT (22.0-30.0) sec ABG pH (7.35-7.45) ABG pCO2 51 H (35-45) mmHg ABG pO2 >420 H 372 H (83-108) mmHg ABG HCO3 28 H (21-25) mmol/L ABG Total CO2 (19-24) mmol/L ABG O2 Saturation 99.3 H 99.4 H (94-97) % ABG Hematocrit 22 L 22 L (34.0-46.0) % ABG Sodium 134 L (135-146) mmol/L ABG Potassium 4.9 H (3.4-4.5) mmol/L ABG Ionized Calcium 3.7 L 4.0 L (4.5-5.3) mg/dL Hemoglobin 7.1 L 7.2 L (11.4-16.0) gm/dL Sodium (137-145) mmol/L BUN (7-17) mg/dL Glucose (74-99) mg/dL POC Glucose (mg/dL) 129 H (70-110) mg/dL Calcium (8.4-10.2) mg/dL Ionized Calcium Jaleel (4.5-5.3) mg/dL Magnesium (1.6-2.3) mg/dL AST (14-36) U/L Alkaline Phosphatase (38-126) U/L Total Protein (6.3-8.2) g/dL Albumin (3.5-5.0) g/dL Arterial Blood Potassium 4.9 H (3.4-4.5) mmol/L Ur Leukocyte Esterase (Negative) Urine Bacteria (None) /hpf Hyaline Casts (0-2) /lpf Urine Mucus (None) /hpf Crossmatch 02/05/24 02/05/24 02/05/24 Range/Units 12:18 12:22 12:50 RBC (3.80-5.40) m/uL Hgb (11.4-16.0) gm/dL Hct (34.0-46.0) % RDW (11.5-15.5) % Lymphocytes # (1.0-4.8) k/uL PT (10.0-12.5) sec INR (<1.2) APTT (22.0-30.0) sec ABG pH 7.27 L 7.63 H* (7.35-7.45) ABG pCO2 65 H 23 L (35-45) mmHg ABG pO2 350 H 366 H (83-108) mmHg ABG HCO3 30 H (21-25) mmol/L ABG Total CO2 30 H (19-24) mmol/L ABG O2 Saturation 99.0 H 99.4 H (94-97) % ABG Hematocrit 22 L 20 L* (34.0-46.0) % ABG Sodium (135-146) mmol/L ABG Potassium 4.8 H (3.4-4.5) mmol/L ABG Ionized Calcium 4.2 L 3.8 L (4.5-5.3) mg/dL Hemoglobin 7.1 L 6.5 L* (11.4-16.0) gm/dL Sodium (137-145) mmol/L BUN (7-17) mg/dL Glucose (74-99) mg/dL POC Glucose (mg/dL) 132 H (70-110) mg/dL Calcium (8.4-10.2) mg/dL Ionized Calcium Jaleel (4.5-5.3) mg/dL Magnesium (1.6-2.3) mg/dL AST (14-36) U/L Alkaline Phosphatase (38-126) U/L Total Protein (6.3-8.2) g/dL Albumin (3.5-5.0) g/dL Arterial Blood Potassium 4.8 H (3.4-4.5) mmol/L Ur Leukocyte Esterase (Negative) Urine Bacteria (None) /hpf Hyaline Casts (0-2) /lpf Urine Mucus (None) /hpf Crossmatch 02/05/24 02/05/24 02/05/24 Range/Units 13:23 13:28 14:48 RBC (3.80-5.40) m/uL Hgb (11.4-16.0) gm/dL Hct (34.0-46.0) % RDW (11.5-15.5) % Lymphocytes # (1.0-4.8) k/uL PT (10.0-12.5) sec INR (<1.2) APTT (22.0-30.0) sec ABG pH 7.33 L (7.35-7.45) ABG pCO2 49 H (35-45) mmHg ABG pO2 >420 H (83-108) mmHg ABG HCO3 26 H (21-25) mmol/L ABG Total CO2 (19-24) mmol/L ABG O2 Saturation 99.4 H (94-97) % ABG Hematocrit 24 L (34.0-46.0) % ABG Sodium (135-146) mmol/L ABG Potassium 4.7 H (3.4-4.5) mmol/L ABG Ionized Calcium 4.4 L (4.5-5.3) mg/dL Hemoglobin 7.8 L (11.4-16.0) gm/dL Sodium (137-145) mmol/L BUN (7-17) mg/dL Glucose (74-99) mg/dL POC Glucose (mg/dL) 124 H 131 H (70-110) mg/dL Calcium (8.4-10.2) mg/dL Ionized Calcium Jaleel (4.5-5.3) mg/dL Magnesium (1.6-2.3) mg/dL AST (14-36) U/L Alkaline Phosphatase (38-126) U/L Total Protein (6.3-8.2) g/dL Albumin (3.5-5.0) g/dL Arterial Blood Potassium 4.7 H (3.4-4.5) mmol/L Ur Leukocyte Esterase (Negative) Urine Bacteria (None) /hpf Hyaline Casts (0-2) /lpf Urine Mucus (None) /hpf Crossmatch 02/05/24 02/05/24 02/05/24 Range/Units 14:49 14:49 14:49 RBC 2.45 L (3.80-5.40) m/uL Hgb 7.3 L D (11.4-16.0) gm/dL Hct 22.5 L (34.0-46.0) % RDW 18.0 H (11.5-15.5) % Lymphocytes # 0.5 L (1.0-4.8) k/uL PT 13.9 H (10.0-12.5) sec INR 1.3 H (<1.2) APTT 36.4 H (22.0-30.0) sec ABG pH (7.35-7.45) ABG pCO2 (35-45) mmHg ABG pO2 (83-108) mmHg ABG HCO3 (21-25) mmol/L ABG Total CO2 (19-24) mmol/L ABG O2 Saturation (94-97) % ABG Hematocrit (34.0-46.0) % ABG Sodium (135-146) mmol/L ABG Potassium (3.4-4.5) mmol/L ABG Ionized Calcium (4.5-5.3) mg/dL Hemoglobin (11.4-16.0) gm/dL Sodium 136 L (137-145) mmol/L BUN 26 H (7-17) mg/dL Glucose 114 H (74-99) mg/dL POC Glucose (mg/dL) (70-110) mg/dL Calcium 7.3 L (8.4-10.2) mg/dL Ionized Calcium Jaleel 4.4 L (4.5-5.3) mg/dL Magnesium 2.9 H (1.6-2.3) mg/dL AST 67 H (14-36) U/L Alkaline Phosphatase 31 L (38-126) U/L Total Protein 4.2 L (6.3-8.2) g/dL Albumin 2.9 L (3.5-5.0) g/dL Arterial Blood Potassium (3.4-4.5) mmol/L Ur Leukocyte Esterase (Negative) Urine Bacteria (None) /hpf Hyaline Casts (0-2) /lpf Urine Mucus (None) /hpf Crossmatch 02/05/24 Range/Units 15:27 RBC (3.80-5.40) m/uL Hgb (11.4-16.0) gm/dL Hct (34.0-46.0) % RDW (11.5-15.5) % Lymphocytes # (1.0-4.8) k/uL PT (10.0-12.5) sec INR (<1.2) APTT (22.0-30.0) sec ABG pH 7.33 L (7.35-7.45) ABG pCO2 49 H (35-45) mmHg ABG pO2 >420 H (83-108) mmHg ABG HCO3 26 H (21-25) mmol/L ABG Total CO2 27 H (19-24) mmol/L ABG O2 Saturation 100.6 H (94-97) % ABG Hematocrit (34.0-46.0) % ABG Sodium (135-146) mmol/L ABG Potassium (3.4-4.5) mmol/L ABG Ionized Calcium (4.5-5.3) mg/dL Hemoglobin (11.4-16.0) gm/dL Sodium (137-145) mmol/L BUN (7-17) mg/dL Glucose (74-99) mg/dL POC Glucose (mg/dL) (70-110) mg/dL Calcium (8.4-10.2) mg/dL Ionized Calcium Jaleel (4.5-5.3) mg/dL Magnesium (1.6-2.3) mg/dL AST (14-36) U/L Alkaline Phosphatase (38-126) U/L Total Protein (6.3-8.2) g/dL Albumin (3.5-5.0) g/dL Arterial Blood Potassium (3.4-4.5) mmol/L Ur Leukocyte Esterase (Negative) Urine Bacteria (None) /hpf Hyaline Casts (0-2) /lpf Urine Mucus (None) /hpf Crossmatch Assessment and Plan Assessment: Status post mitral valve and 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 The patient is postop day #0. Patient remains intubated on the mechanical ventilator. Hemodynamically, we are with a single lower cardiac output and the necessary adjustments will be done. Postthoracotomy, currently intubated on mechanical ventilator. Chest x-ray was noted. Adequate oxygenation based on the blood gases Third-degree AV block post valve surgery, currently paced at a rate of 80 Valvular heart disease, patient transferred from outside facility for cardiothoracic consult. ENRIQUE confirmed presence of severe mitral regurgitation, moderate-severe tricuspid regurgitation and preserved biventricular function, and the patient is scheduled to undergo mitral valve replacement/repair on 02/05/2024. COPD, recovered from acute COPD exacerbation Postoperative anemia, expected outcome of surgery, monitoring the hemoglobin Anemia, normocytic normochromic Chronic ongoing tobacco dependence, 1 pack/day smoker with over [id number] history History of hyperlipidemia History of hypertension Chronic back pain and she is on Neurontin, and hydrocodone Depression Migraines Smoker Plan: Keep the patient on propofol Continue vent management and increased respiratory rate up to 20 FiO2 gradually to maintain saturation above 90% Output from the chest tubes are minimal at this point in time and there is no evidence of pneumothorax Keep the patient paced at a rate of 80 Continue fluid resuscitation the patient was given IV albumin 5% to 50 cc and this may need to be repeated Will need inotropes and will start the patient on a combination of milrinone and norepinephrine Monitor hemodynamic parameters and keep the Donie-Luis in place The patient will be kept in the intensive care unit. Will monitor hemodynamics. Will monitor progress. Will start weaning once she is more hemodynamically stable. Will continue to follow. Critical care evaluation that was done in the intensive care unit, more than 30- minute evaluation. Time with Patient: Greater than 30
[2024-02-05 16:07] LABS: Glucose,Whole Blood 126 mg/dL (70-110)
[2024-02-05] MEDS: MILRINONE-D5W PMX 20 MG in DEXTROSE/WATER 1 100ML.BAG IV SCH (16:08)
[2024-02-05] MEDS: HEPARIN SODIUM,PORCINE 5,000 UNIT/ML 1 ML VIAL SQ SCH (16:09)
[2024-02-05] MEDS: DEXMEDETOMIDINE/0.9% NACL(PMX) 400 MCG in EMPTY BAG 1 BAG IV SCH (16:35)
[2024-02-05 17:10] LABS: Glucose,Whole Blood 129 mg/dL (70-110)
[2024-02-05] MEDS: ACETAMINOPHEN IV (For NPO) 1,000 MG in EMPTY BAG 1 BAG IVPB SCH (17:29)
[2024-02-05 18:07] LABS: Glucose,Whole Blood 134 mg/dL (70-110)
[2024-02-05] MEDS: INSULIN REGULAR 100 UNIT in SODIUM CHLORIDE 0.9% 100 ML IV SCH (18:17)
[2024-02-05 18:30] LABS: Anisocytosis Slight; Basophils % (A) 0 %; Eosinophils % (A) 0 %; Hypochromasia Slight; Lymphocytes # (A) 0.3 k/uL (1.0-4.8); Lymphocytes % (A) 4 %; MCH 29.9 pg (25.0-35.0); MCHC 32.3 g/dL (31.0-37.0); MCV 92.6 fL (80.0-100.0); Mean Platelet Volume 9.6; Monocytes # (A) 0.6 k/uL (0-1.0); Monocytes % (A) 7 %; Neutrophils # (A) 7.3 k/uL (1.3-7.7); Neutrophils % (A) 88 %; Platelet Count 175 k/uL (150-450); RBC 1.94 m/uL (3.80-5.40); RDW 18.4 % (11.5-15.5); WBC 8.3 k/uL (3.8-10.6)
[2024-02-05 18:32] LABS: HGB 5.8 gm/dL (11.4-16.0)
[2024-02-05 19:03] LABS: Glucose,Whole Blood 142 mg/dL (70-110)
[2024-02-05 20:06] LABS: Glucose,Whole Blood 135 mg/dL (70-110)
[2024-02-05] MEDS: SENNOSIDES-DOCUSATE SODIUM 1 EACH TAB PO SCH (20:37)
--- NOTE | 2024-02-05 20:46 | OP ---
OPERATIVE REPORT DATE OF SERVICE : 02/05/2024 PREOPERATIVE DIAGNOSES: 1. Severe mitral regurgitation. 2. Congestive heart failure. 3. [id number] tricuspid regurgitation. PROCEDURES: Mitral valve replacement with a #29 mm Hannah Mitris Resilia bioprosthetic mitral valve, tricuspid valve repair with a #30 mm Hannah MC3 ring, clip ligation of left atrial appendage with a 35 mm AtriClip, and intraoperative transesophageal echocardiogram. ANESTHESIA: General. BLOOD LOSS: 500 mL. SUMMARY: The patient was brought to the operating room, placed in the supine position. Following administration of general endotracheal anesthetic and placement of a Creswell- Luis catheter, arterial line, adequate IV access, and Licona catheter; the patient was carefully prepped and draped in normal sterile fashion using chlorhexidine paint and sterile towels. A midline incision in the chest made, sternum divided, pericardium was opened, heart size was mildly enlarged, aorta was soft. The patient was heparinized to an ACT of greater than 480. The aorta has 2 single stage venous cannulas placed. Antegrade and retrograde cardioplegic catheters were positioned in the ascending aorta and the coronary sinus. The patient was placed on bypass, cross-clamp placed, heart arrested with 1 L of antegrade followed by 500 mL of retrograde cardioplegia. Retrograde cardioplegia was delivered 300 mL to 500 mL at the end of each 20- minute intervals. First the base of the left atrial appendage was measured. A 35 mm AtriClip was secured at the base and physically obliterating the left atrial appendage. Next, the left atrium was entered at the junction of the right superior pulmonary vein. A handheld retractor was placed. Mitral valve was identified. The leaflets were thickened. The chordae were foreshortened and thickened. Essentially both leaflets were excised down to the papillary head and the excised valve was sent to Pathology. At this point, it sized to a 29 mm Hannah Mitris Resilia bioprosthetic mitral valve. The valve was then brought into the field and prepared in the usual fashion as 2-0 Ti-Cron pledgetted sutures were placed circumferentially ventricularly based. These were then passed through the sewing cuff of the valve which was seated and seated well with both the commissural lines at about 10 o'clock and 1 o'clock to avoid any LVOT obstruction. The valve was seated and seated well. All sutures were secured, tied and cut using the Cor-Knot ligature system device. A finger was placed through the valve into the LVOT and there was no evidence of any strut present. It was irrigated out with cold saline and the aortotomy incision closed in a double layered 4-0 Prolene pledgetted closure. Next, both caval snares were snared down and the retrograde catheter was removed. The right atrium was then opened horizontally about 3 cm. At this point, the tricuspid valve was identified. The Creswell-Luis catheter was reflected medially and 2-0 Ti- Cron nonpledgeted sutures were placed around the complete annulus, except at the area of the bundle of His. At this point, it sized to a 30 mm MC3 tricuspid ring. The ring was brought into the field. All sutures passed through the ring, which was then seated and seated well. All sutures were secured, tied and cut using the Cor-Knot ligature system device. Care was taken not to entrap the Creswell-Luis catheter. At this point, it was also irrigated out and the right atrium was closed in a double layered closure. The patient was placed head down. Complete de-airing maneuvers performed 3 times. 1 L of warm blood retrograde cardioplegia was run. Cross-clamp was then removed. Pacing wires were placed. The patient was paced DDD at 80. The patient was ventilated, de- aired, rewarmed and re-perfused and then brought off bypass. Came off bypass uneventfully with good hemodynamics. Protamine delivered. The patient decannulated. Atrioventricular pacing wires had already been placed. Mediastinal chest tube and right and left pleural Konrad drains were placed. At this point, the sternum was closed with four #6 sternal wires and 2 [id number] Osteen sternal cable closure devices. Skin, subcutaneous tissue, and fascia closed in 3 layers. No complications. The patient tolerated the procedure well. Postoperative ENRIQUE showed excellent mitral valve function. No perivalvular leak, no mitral regurgitation, and trace tricuspid regurgitation, probably due to the Creswell-Luis. MMODL / IJN: [id number] / MTDMarty
[2024-02-05 21:02] LABS: Glucose,Whole Blood 124 mg/dL (70-110)
[2024-02-05 21:34] LABS: Glucose,Whole Blood 120 mg/dL (70-110)
--- NOTE | 2024-02-05 21:36 | PN ---
PROGRESS NOTE SUBJECTIVE: Status post mitral valve repair. Remains in the ICU. ABG shows pH 7.33, pCO2 is 49. Please see further orders prognosis and surgical repair. MMODL / IJN: [id number] /
[2024-02-05 21:59] LABS: Anisocytosis Slight; Basophils % (A) 0 %; Eosinophils # (A) 0.1 k/uL (0-0.7); Eosinophils % (A) 1 %; HCT 28.2 % (34.0-46.0); Lymphocytes # (A) 0.3 k/uL (1.0-4.8); Lymphocytes % (A) 4 %; MCH 30.9 pg (25.0-35.0); MCHC 33.5 g/dL (31.0-37.0); MCV 92.1 fL (80.0-100.0); Mean Platelet Volume 8.1; Monocytes # (A) 0.5 k/uL (0-1.0); Monocytes % (A) 7 %; Neutrophils # (A) 6.4 k/uL (1.3-7.7); Neutrophils % (A) 87 %; Platelet Count 141 k/uL (150-450); RBC 3.07 m/uL (3.80-5.40); RDW 16.4 % (11.5-15.5); WBC 7.4 k/uL (3.8-10.6)
[2024-02-05 22:00] LABS: HGB 9.5 gm/dL (11.4-16.0)
[2024-02-05 22:28] LABS: ABG Base Excess -1.5 mmol/L; ABG HCO3 24 mmol/L (21-25); ABG Oxygen Saturation 99.4 % (94-97); ABG PCO2 41 mmHg (35-45); ABG PH 7.37 (7.35-7.45); ABG PO2 124 mmHg (83-108); ABG TCO2 25 mmol/L (19-24); Allen Test Performed? Yes
[2024-02-05 23:04] LABS: Glucose,Whole Blood 123 mg/dL (70-110)
[2024-02-06 00:09] LABS: Glucose,Whole Blood 112 mg/dL (70-110)
[2024-02-06 01:14] LABS: Glucose,Whole Blood 111 mg/dL (70-110)
[2024-02-06 02:13] LABS: Glucose,Whole Blood 110 mg/dL (70-110)
[2024-02-06 03:21] LABS: Glucose,Whole Blood 109 mg/dL (70-110)
[2024-02-06 04:14] LABS: Glucose,Whole Blood 106 mg/dL (70-110)
[2024-02-06 04:35] LABS: Anisocytosis Slight; Basophils % (A) 0 %; Eosinophils # (A) 0.1 k/uL (0-0.7); Eosinophils % (A) 1 %; HCT 28.9 % (34.0-46.0); HGB 9.8 gm/dL (11.4-16.0); Lymphocytes # (A) 0.4 k/uL (1.0-4.8); Lymphocytes % (A) 4 %; MCH 30.9 pg (25.0-35.0); MCHC 33.8 g/dL (31.0-37.0); MCV 91.6 fL (80.0-100.0); Mean Platelet Volume 9.1; Monocytes # (A) 0.7 k/uL (0-1.0); Monocytes % (A) 8 %; Neutrophils # (A) 7.8 k/uL (1.3-7.7); Neutrophils % (A) 86 %; Platelet Count 129 k/uL (150-450); RBC 3.16 m/uL (3.80-5.40); RDW 16.8 % (11.5-15.5); WBC 9.1 k/uL (3.8-10.6)
[2024-02-06 04:57] LABS: Ionized Calcium 4.8 mg/dL (4.5-5.3)
[2024-02-06 05:08] LABS: Glucose,Whole Blood 106 mg/dL (70-110)
[2024-02-06 05:29] LABS: ALT 13 U/L (4-34); AST 90 U/L (14-36); African American GFR (CKD) >90 (>60 ml/min/1.73 sqM); Albumin 3.2 g/dL (3.5-5.0); Alkaline Phosphatase 32 U/L (38-126); Anion Gap 4 mmol/L; Blood Urea Nitrogen 21 mg/dL (7-17); Carbon Dioxide 21 mmol/L (22-30); Chloride 110 mmol/L (98-107); Glucose 100 mg/dL (74-99); Magnesium 2.3 mg/dL (1.6-2.3); Non-African American GFR(CKD) 83 (>60 ml/min/1.73 sqM); Sodium 135 mmol/L (137-145); Total Bilirubin 1.4 mg/dL (0.2-1.3); Total Protein 4.7 g/dL (6.3-8.2)
[2024-02-06] MEDS: METOCLOPRAMIDE 5 MG/ML 2 ML VIAL IVP PRN (05:29)
[2024-02-06 06:57] LABS: Glucose,Whole Blood 119 mg/dL (70-110)
--- NOTE | 2024-02-06 07:23 | P.PN ---
Subjective Progress Note Date: 02/06/24 Principal diagnosis: Severe mitral regurgitation, moderate to severe tricuspid regurgitation, moderate aortic insufficiency per transthoracic echocardiogram, severe pulmonary hypertension, acute heart failure with preserved left ventricular systolic function. History of mild CAD, hyperlipidemia, COPD on home oxygen at night and PRN, recent pneumonia, GERD, previous tobacco dependence, occasional marijuana use, family history of coronary artery disease with mother from myocardial infarction in her 70s POD #1 mitral valve replacement with a 29 mm Hannah Mitris resilia bioprosthetic mitral valve, tricuspid valve repair with a 30 mm Hannah MC 3 ring, clip ligation of the left atrial appendage with a 35 mm AtriClip, intraoperative transesophageal echocardiogram performed by anesthesia Acute blood loss anemia, expected given hemodilution and cardiopulmonary bypass pump The patient was seen and examined this morning sitting up in recliner in the intensive care unit in no acute distress. She was successfully extubated last night at 22:35. She is currently AV paced at 80 bpm, underlying rhythm complete heart block. Hemodynamically stable on IV Primacor and low-dose levo. Does complain of postsurgical pain, denies shortness of breath although she states it is hard to take a deep breath in due to her chest tubes. Right internal jugular [place]/Cordis, left brachial arterial line, mediastinal/right/left pleural chest tubes all present. She was able to get up to the recliner with minimal assistance this morning. Chest x-ray, labs reviewed. She remains on 2 L nasal cannula with oxygen saturation in the high 90s, only able to achieve 500 mL on incentive spirometry. She did receive 2 units packed red blood cells last night for hemoglobin 5.8, this morning hemoglobin is 9.8. No other new concerns. Objective - Vital Signs Vital signs: Vital Signs Temp 99.7 F H 02/06/24 04:00 Pulse 80 02/06/24 07:00 Resp 22 02/06/24 07:00 BP 109/62 02/06/24 02:30 Pulse Ox 98 02/06/24 07:00 FiO2 40 02/05/24 22:05 Intake & Output 02/05/24 02/06/24 02/06/24 18:59 06:59 18:59 Intake Total 6828.851 7878.052 329 Output Total 2620 995 110 Balance -1016.174 851.052 219 Weight 61.1 kg Intake: IV 337 878 79 NS for cardiac output 100 240 20 NS for pressure flush 36 108 9 Sodium Chloride 0.9% 1, 530 50 000 ml @ 20 mls/hr IV . Q24H KAMINI Rx#:[id number] Intake, IV Titration 1216.826 348.052 Amount ACETAMINOPHEN IV (For NPO 100 ) 1,000 mg In Empty Bag 1 bag @ 400 mls/hr IVPB Q6HR KAMINI Rx#:[id number] Albumin Human 5% 250 ml 750 In Empty Bag 1 bag @ 250 mls/hr IVPB Q1HR PRN Rx#: [id number] Dexmedetomidine/0.9% NaCl 15.975 66.893 (Pmx) 400 mcg In Empty Bag 1 bag @ Titrate IV . Q0M KAMINI Rx#:[id number] Insulin Regular 100 unit 4.899 In Sodium Chloride 0.9% 100 ml @ Per Protocol IV .Q0M KAMINI Rx#:[id number] Milrinone-D5w Pmx 20 mg 23.004 25.191 In Dextrose/Water 1 100ml .bag @ 0.15 MCG/KG/MIN 2. 43 mls/hr IV .Q24H K[facility]INI Rx #:[id number] Norepinephrine 4 mg In 24.668 124.987 Sodium Chloride 0.9% 250 ml @ 0.02 MCG/KG/MIN 4. 115 mls/hr IV .Q24H KAMINI Rx#:[id number] Sodium Chloride 0.9% 1, 200 100 000 ml @ 20 mls/hr IV . Q24H KAMINI Rx#:[id number] ceFAZolin 2 gm In Sodium 50 Chloride 0.9% 50 ml @ 100 mls/hr IVPB Q8HR KAMINI Rx# :[id number] propofoL 1,000 mg In 53.179 26.082 Empty Bag 1 bag @ Titrate IV .Q0M KAMINI Rx#: [id number] Blood Product 0 620 Rc As-1 Unit 0 310 [id number] Rc As-1 Unit 310 [id number] Albumin 250 Sodium Chloride 0.9% 1, 250 000 ml @ 20 mls/hr IV . Q24H KAMINI Rx#:[id number] Other 50 Output: Chest Tube Drainage 215 500 50 Lt Pleural 50 100 0 Mediastinal 135 240 50 Rt Pleural 30 160 0 Urine 1405 495 60 Estimated Blood Loss 1000 Other: Voiding Method Indwelling Catheter Indwelling Catheter ABP, PAP, CO, CI - Last Documented Arterial Blood Pressure 117/53 Pulmonary Artery Pressure 44/18 Cardiac Output 4.2 Cardiac Index 2.8 - Exam CONSTITUTIONAL: Appears comfortable, cooperative, no acute distress RESPIRATORY: Lungs sounds diminished bilaterally. Respirations even, nonlabored. Currently on 2 L nasal cannula with oxygen saturation 98%. Able to achieve 500 mL on incentive spirometry. Strong productive cough with minimal yellow sputum. CARDIOVASCULAR: S1, S2 present. Regular rate and rhythm, AV paced on telemetry, rate 80 bpm, underlying rhythm complete heart block. Sternum stable. Palpable peripheral pulses bilaterally. No edema present. No calf pain or tenderness noted. Heart hugger in place with patient demonstrating appropriate use. Antiembolism stockings, SCDs present. GASTROINTESTINAL: Abdomen soft, nontender, nondistended. Active bowel sounds present 4 quadrants. Tolerating minimal clear liquids. Positive flatus GENITOURINARY: Licona present draining clear, yellow urine. Output overnight 35-60 mL per hour INTEGUMENTARY: Skin is warm and dry with evidence of good perfusion. Anterior chest incision well approximated and covered with dry intact dressing NEUROLOGIC: Cranial nerves II through XII intact MUSKULOSKELETAL: Able to move all extremities, strength equal bilaterally PSYCHIATRIC: Alert and oriented to person place and time, appropriate affect, intact judgment and insight INVASIVE LINES AND TUBES: Mediastinal/left/right pleural chest tubes present and connected to wall suction, no air leaks present. Mediastinal tube with 100 mL serosanguineous drainage overnight, 550 mL since surgery. Left pleural chest tube with 20 mL serosanguineous drainage overnight, 300 mL since surgery. Right pleural chest tube with 120 mL serosanguineous drainage overnight, 250 mL since surgery. A/V epicardial pacemaker wires present, connected to generator, DDD mode with rate 80 bpm. Right internal jugular [place]/Cordis, right brachial arterial line present. Last CO/CI 4.2/2.8, PA 40/17, CVP 8. - Allied health notes Allied health notes reviewed: nursing - Labs CBC & Chem 7: 02/06/24 04:15 02/06/24 04:15 Labs: Abnormal Lab Results - Last 24 Hours (Table) 02/04/24 02/05/24 02/05/24 Range/Units 07:13 10:48 11:16 RBC (3.80-5.40) m/uL Hgb (11.4-16.0) gm/dL Hct (34.0-46.0) % RDW (11.5-15.5) % Plt Count (150-450) k/uL Neutrophils # (1.3-7.7) k/uL Lymphocytes # (1.0-4.8) k/uL PT (10.0-12.5) sec INR (<1.2) APTT (22.0-30.0) sec ABG pH (7.35-7.45) ABG pCO2 46 H (35-45) mmHg ABG pO2 228 H >420 H (83-108) mmHg ABG HCO3 29 H (21-25) mmol/L ABG Total CO2 (19-24) mmol/L ABG O2 Saturation >99.4 H 99.3 H (94-97) % ABG Hematocrit 28 L 22 L (34.0-46.0) % ABG Sodium 134 L (135-146) mmol/L ABG Potassium 3.2 L (3.4-4.5) mmol/L ABG Ionized Calcium 3.7 L (4.5-5.3) mg/dL Hemoglobin 9.3 L 7.1 L (11.4-16.0) gm/dL Sodium (137-145) mmol/L Chloride (98-107) mmol/L Carbon Dioxide (22-30) mmol/L BUN (7-17) mg/dL Glucose (74-99) mg/dL POC Glucose (mg/dL) (70-110) mg/dL Calcium (8.4-10.2) mg/dL Ionized Calcium Jaleel (4.5-5.3) mg/dL Magnesium (1.6-2.3) mg/dL Total Bilirubin (0.2-1.3) mg/dL AST (14-36) U/L Alkaline Phosphatase (38-126) U/L Total Protein (6.3-8.2) g/dL Albumin (3.5-5.0) g/dL Arterial Blood Potassium 3.2 L (3.4-4.5) mmol/L Crossmatch See Detail 02/05/24 02/05/24 02/05/24 Range/Units 11:49 11:54 12:18 RBC (3.80-5.40) m/uL Hgb (11.4-16.0) gm/dL Hct (34.0-46.0) % RDW (11.5-15.5) % Plt Count (150-450) k/uL Neutrophils # (1.3-7.7) k/uL Lymphocytes # (1.0-4.8) k/uL PT (10.0-12.5) sec INR (<1.2) APTT (22.0-30.0) sec ABG pH (7.35-7.45) ABG pCO2 51 H (35-45) mmHg ABG pO2 372 H (83-108) mmHg ABG HCO3 28 H (21-25) mmol/L ABG Total CO2 (19-24) mmol/L ABG O2 Saturation 99.4 H (94-97) % ABG Hematocrit 22 L (34.0-46.0) % ABG Sodium (135-146) mmol/L ABG Potassium 4.9 H (3.4-4.5) mmol/L ABG Ionized Calcium 4.0 L (4.5-5.3) mg/dL Hemoglobin 7.2 L (11.4-16.0) gm/dL Sodium (137-145) mmol/L Chloride (98-107) mmol/L Carbon Dioxide (22-30) mmol/L BUN (7-17) mg/dL Glucose (74-99) mg/dL POC Glucose (mg/dL) 129 H 132 H (70-110) mg/dL Calcium (8.4-10.2) mg/dL Ionized Calcium Jaleel (4.5-5.3) mg/dL Magnesium (1.6-2.3) mg/dL Total Bilirubin (0.2-1.3) mg/dL AST (14-36) U/L Alkaline Phosphatase (38-126) U/L Total Protein (6.3-8.2) g/dL Albumin (3.5-5.0) g/dL Arterial Blood Potassium 4.9 H (3.4-4.5) mmol/L Crossmatch 02/05/24 02/05/24 02/05/24 Range/Units 12:22 12:50 13:23 RBC (3.80-5.40) m/uL Hgb (11.4-16.0) gm/dL Hct (34.0-46.0) % RDW (11.5-15.5) % Plt Count (150-450) k/uL Neutrophils # (1.3-7.7) k/uL Lymphocytes # (1.0-4.8) k/uL PT (10.0-12.5) sec INR (<1.2) APTT (22.0-30.0) sec ABG pH 7.27 L 7.63 H* (7.35-7.45) ABG pCO2 65 H 23 L (35-45) mmHg ABG pO2 350 H 366 H (83-108) mmHg ABG HCO3 30 H (21-25) mmol/L ABG Total CO2 30 H (19-24) mmol/L ABG O2 Saturation 99.0 H 99.4 H (94-97) % ABG Hematocrit 22 L 20 L* (34.0-46.0) % ABG Sodium (135-146) mmol/L ABG Potassium 4.8 H (3.4-4.5) mmol/L ABG Ionized Calcium 4.2 L 3.8 L (4.5-5.3) mg/dL Hemoglobin 7.1 L 6.5 L* (11.4-16.0) gm/dL Sodium (137-145) mmol/L Chloride (98-107) mmol/L Carbon Dioxide (22-30) mmol/L BUN (7-17) mg/dL Glucose (74-99) mg/dL POC Glucose (mg/dL) 124 H (70-110) mg/dL Calcium (8.4-10.2) mg/dL Ionized Calcium Jaleel (4.5-5.3) mg/dL Magnesium (1.6-2.3) mg/dL Total Bilirubin (0.2-1.3) mg/dL AST (14-36) U/L Alkaline Phosphatase (38-126) U/L Total Protein (6.3-8.2) g/dL Albumin (3.5-5.0) g/dL Arterial Blood Potassium 4.8 H (3.4-4.5) mmol/L Crossmatch 02/05/24 02/05/24 02/05/24 Range/Units 13:28 14:48 14:49 RBC 2.45 L (3.80-5.40) m/uL Hgb 7.3 L D (11.4-16.0) gm/dL Hct 22.5 L (34.0-46.0) % RDW 18.0 H (11.5-15.5) % Plt Count (150-450) k/uL Neutrophils # (1.3-7.7) k/uL Lymphocytes # 0.5 L (1.0-4.8) k/uL PT (10.0-12.5) sec INR (<1.2) APTT (22.0-30.0) sec ABG pH 7.33 L (7.35-7.45) ABG pCO2 49 H (35-45) mmHg ABG pO2 >420 H (83-108) mmHg ABG HCO3 26 H (21-25) mmol/L ABG Total CO2 (19-24) mmol/L ABG O2 Saturation 99.4 H (94-97) % ABG Hematocrit 24 L (34.0-46.0) % ABG Sodium (135-146) mmol/L ABG Potassium 4.7 H (3.4-4.5) mmol/L ABG Ionized Calcium 4.4 L (4.5-5.3) mg/dL Hemoglobin 7.8 L (11.4-16.0) gm/dL Sodium (137-145) mmol/L Chloride (98-107) mmol/L Carbon Dioxide (22-30) mmol/L BUN (7-17) mg/dL Glucose (74-99) mg/dL POC Glucose (mg/dL) 131 H (70-110) mg/dL Calcium (8.4-10.2) mg/dL Ionized Calcium Jaleel (4.5-5.3) mg/dL Magnesium (1.6-2.3) mg/dL Total Bilirubin (0.2-1.3) mg/dL AST (14-36) U/L Alkaline Phosphatase (38-126) U/L Total Protein (6.3-8.2) g/dL Albumin (3.5-5.0) g/dL Arterial Blood Potassium 4.7 H (3.4-4.5) mmol/L Crossmatch 02/05/24 02/05/2424 Range/Units 14:49 14:49 15:27 RBC (3.80-5.40) m/uL Hgb (11.4-16.0) gm/dL Hct (34.0-46.0) % RDW (11.5-15.5) % Plt Count (150-450) k/uL Neutrophils # (1.3-7.7) k/uL Lymphocytes # (1.0-4.8) k/uL PT 13.9 H (10.0-12.5) sec INR 1.3 H (<1.2) APTT 36.4 H (22.0-30.0) sec ABG pH 7.33 L (7.35-7.45) ABG pCO2 49 H (35-45) mmHg ABG pO2 >420 H (83-108) mmHg ABG HCO3 26 H (21-25) mmol/L ABG Total CO2 27 H (19-24) mmol/L ABG O2 Saturation 100.6 H (94-97) % ABG Hematocrit (34.0-46.0) % ABG Sodium (135-146) mmol/L ABG Potassium (3.4-4.5) mmol/L ABG Ionized Calcium (4.5-5.3) mg/dL Hemoglobin (11.4-16.0) gm/dL Sodium 136 L (137-145) mmol/L Chloride (98-107) mmol/L Carbon Dioxide (22-30) mmol/L BUN 26 H (7-17) mg/dL Glucose 114 H (74-99) mg/dL POC Glucose (mg/dL) (70-110) mg/dL Calcium 7.3 L (8.4-10.2) mg/dL Ionized Calcium Jaleel 4.4 L (4.5-5.3) mg/dL Magnesium 2.9 H (1.6-2.3) mg/dL Total Bilirubin (0.2-1.3) mg/dL AST 67 H (14-36) U/L Alkaline Phosphatase 31 L (38-126) U/L Total Protein 4.2 L (6.3-8.2) g/dL Albumin 2.9 L (3.5-5.0) g/dL Arterial Blood Potassium (3.4-4.5) mmol/L Crossmatch 02/05/24 02/05/24 02/05/24 Range/Units 16:06 17:08 18:00 RBC 1.94 L (3.80-5.40) m/uL Hgb 5.8 L* D (11.4-16.0) gm/dL Hct 18.0 L* (34.0-46.0) % RDW 18.4 H (11.5-15.5) % Plt Count (150-450) k/uL Neutrophils # (1.3-7.7) k/uL Lymphocytes # 0.3 L (1.0-4.8) k/uL PT (10.0-12.5) sec INR (<1.2) APTT (22.0-30.0) sec ABG pH (7.35-7.45) ABG pCO2 (35-45) mmHg ABG pO2 (83-108) mmHg ABG HCO3 (21-25) mmol/L ABG Total CO2 (19-24) mmol/L ABG O2 Saturation (94-97) % ABG Hematocrit (34.0-46.0) % ABG Sodium (135-146) mmol/L ABG Potassium (3.4-4.5) mmol/L ABG Ionized Calcium (4.5-5.3) mg/dL Hemoglobin (11.4-16.0) gm/dL Sodium (137-145) mmol/L Chloride (98-107) mmol/L Carbon Dioxide (22-30) mmol/L BUN (7-17) mg/dL Glucose (74-99) mg/dL POC Glucose (mg/dL) 126 H 129 H (70-110) mg/dL Calcium (8.4-10.2) mg/dL Ionized Calcium Jaleel (4.5-5.3) mg/dL Magnesium (1.6-2.3) mg/dL Total Bilirubin (0.2-1.3) mg/dL AST (14-36) U/L Alkaline Phosphatase (38-126) U/L Total Protein (6.3-8.2) g/dL Albumin (3.5-5.0) g/dL Arterial Blood Potassium (3.4-4.5) mmol/L Crossmatch 02/05/24 02/05/24 02/05/24 Range/Units 18:04 19:00 19:55 RBC (3.80-5.40) m/uL Hgb (11.4-16.0) gm/dL Hct (34.0-46.0) % RDW (11.5-15.5) % Plt Count (150-450) k/uL Neutrophils # (1.3-7.7) k/uL Lymphocytes # (1.0-4.8) k/uL PT (10.0-12.5) sec INR (<1.2) APTT (22.0-30.0) sec ABG pH (7.35-7.45) ABG pCO2 (35-45) mmHg ABG pO2 (83-108) mmHg ABG HCO3 (21-25) mmol/L ABG Total CO2 (19-24) mmol/L ABG O2 Saturation (94-97) % ABG Hematocrit (34.0-46.0) % ABG Sodium (135-146) mmol/L ABG Potassium (3.4-4.5) mmol/L ABG Ionized Calcium (4.5-5.3) mg/dL Hemoglobin (11.4-16.0) gm/dL Sodium (137-145) mmol/L Chloride (98-107) mmol/L Carbon Dioxide (22-30) mmol/L BUN (7-17) mg/dL Glucose (74-99) mg/dL POC Glucose (mg/dL) 134 H 142 H 135 H (70-110) mg/dL Calcium (8.4-10.2) mg/dL Ionized Calcium Jaleel (4.5-5.3) mg/dL Magnesium (1.6-2.3) mg/dL Total Bilirubin (0.2-1.3) mg/dL AST (14-36) U/L Alkaline Phosphatase (38-126) U/L Total Protein (6.3-8.2) g/dL Albumin (3.5-5.0) g/dL Arterial Blood Potassium (3.4-4.5) mmol/L Crossmatch 02/05/24 02/05/24 02/05/24 Range/Units 21:00 21:30 21:32 RBC 3.07 L (3.80-5.40) m/uL Hgb 9.5 L D (11.4-16.0) gm/dL Hct 28.2 L (34.0-46.0) % RDW 16.4 H (11.5-15.5) % Plt Count 141 L (150-450) k/uL Neutrophils # (1.3-7.7) k/uL Lymphocytes # 0.3 L (1.0-4.8) k/uL PT (10.0-12.5) sec INR (<1.2) APTT (22.0-30.0) sec ABG pH (7.35-7.45) ABG pCO2 (35-45) mmHg ABG pO2 (83-108) mmHg ABG HCO3 (21-25) mmol/L ABG Total CO2 (19-24) mmol/L ABG O2 Saturation (94-97) % ABG Hematocrit (34.0-46.0) % ABG Sodium (135-146) mmol/L ABG Potassium (3.4-4.5) mmol/L ABG Ionized Calcium (4.5-5.3) mg/dL Hemoglobin (11.4-16.0) gm/dL Sodium (137-145) mmol/L Chloride (98-107) mmol/L Carbon Dioxide (22-30) mmol/L BUN (7-17) mg/dL Glucose (74-99) mg/dL POC Glucose (mg/dL) 124 H 120 H (70-110) mg/dL Calcium (8.4-10.2) mg/dL Ionized Calcium Jaleel (4.5-5.3) mg/dL Magnesium (1.6-2.3) mg/dL Total Bilirubin (0.2-1.3) mg/dL AST (14-36) U/L Alkaline Phosphatase (38-126) U/L Total Protein (6.3-8.2) g/dL Albumin (3.5-5.0) g/dL Arterial Blood Potassium (3.4-4.5) mmol/L Crossmatch 02/05/24 02/05/24 02/06/24 Range/Units 22:26 22:54 00:08 RBC (3.80-5.40) m/uL Hgb (11.4-16.0) gm/dL Hct (34.0-46.0) % RDW (11.5-15.5) % Plt Count (150-450) k/uL Neutrophils # (1.3-7.7) k/uL Lymphocytes # (1.0-4.8) k/uL PT (10.0-12.5) sec INR (<1.2) APTT (22.0-30.0) sec ABG pH (7.35-7.45) ABG pCO2 (35-45) mmHg ABG pO2 124 H (83-108) mmHg ABG HCO3 (21-25) mmol/L ABG Total CO2 25 H (19-24) mmol/L ABG O2 Saturation 99.4 H (94-97) % ABG Hematocrit (34.0-46.0) % ABG Sodium (135-146) mmol/L ABG Potassium (3.4-4.5) mmol/L ABG Ionized Calcium (4.5-5.3) mg/dL Hemoglobin (11.4-16.0) gm/dL Sodium (137-145) mmol/L Chloride (98-107) mmol/L Carbon Dioxide (22-30) mmol/L BUN (7-17) mg/dL Glucose (74-99) mg/dL POC Glucose (mg/dL) 123 H 112 H (70-110) mg/dL Calcium (8.4-10.2) mg/dL Ionized Calcium Jaleel (4.5-5.3) mg/dL Magnesium (1.6-2.3) mg/dL Total Bilirubin (0.2-1.3) mg/dL AST (14-36) U/L Alkaline Phosphatase (38-126) U/L Total Protein (6.3-8.2) g/dL Albumin (3.5-5.0) g/dL Arterial Blood Potassium (3.4-4.5) mmol/L Crossmatch 02/06/24 02/06/24 02/06/24 Range/Units 01:11 04:15 04:15 RBC 3.16 L (3.80-5.40) m/uL Hgb 9.8 L (11.4-16.0) gm/dL Hct 28.9 L (34.0-46.0) % RDW 16.8 H (11.5-15.5) % Plt Count 129 L (150-450) k/uL Neutrophils # 7.8 H (1.3-7.7) k/uL Lymphocytes # 0.4 L (1.0-4.8) k/uL PT (10.0-12.5) sec INR (<1.2) APTT (22.0-30.0) sec ABG pH (7.35-7.45) ABG pCO2 (35-45) mmHg ABG pO2 (83-108) mmHg ABG HCO3 (21-25) mmol/L ABG Total CO2 (19-24) mmol/L ABG O2 Saturation (94-97) % ABG Hematocrit (34.0-46.0) % ABG Sodium (135-146) mmol/L ABG Potassium (3.4-4.5) mmol/L ABG Ionized Calcium (4.5-5.3) mg/dL Hemoglobin (11.4-16.0) gm/dL Sodium 135 L (137-145) mmol/L Chloride 110 H (98-107) mmol/L Carbon Dioxide 21 L (22-30) mmol/L BUN 21 H (7-17) mg/dL Glucose 100 H (74-99) mg/dL POC Glucose (mg/dL) 111 H (70-110) mg/dL Calcium 8.0 L (8.4-10.2) mg/dL Ionized Calcium Jaleel (4.5-5.3) mg/dL Magnesium (1.6-2.3) mg/dL Total Bilirubin 1.4 H (0.2-1.3) mg/dL AST 90 H (14-36) U/L Alkaline Phosphatase 32 L (38-126) U/L Total Protein 4.7 L (6.3-8.2) g/dL Albumin 3.2 L (3.5-5.0) g/dL Arterial Blood Potassium (3.4-4.5) mmol/L Crossmatch 02/06/24 Range/Units 06:56 RBC (3.80-5.40) m/uL Hgb (11.4-16.0) gm/dL Hct (34.0-46.0) % RDW (11.5-15.5) % Plt Count (150-450) k/uL Neutrophils # (1.3-7.7) k/uL Lymphocytes # (1.0-4.8) k/uL PT (10.0-12.5) sec INR (<1.2) APTT (22.0-30.0) sec ABG pH (7.35-7.45) ABG pCO2 (35-45) mmHg ABG pO2 (83-108) mmHg ABG HCO3 (21-25) mmol/L ABG Total CO2 (19-24) mmol/L ABG O2 Saturation (94-97) % ABG Hematocrit (34.0-46.0) % ABG Sodium (135-146) mmol/L ABG Potassium (3.4-4.5) mmol/L ABG Ionized Calcium (4.5-5.3) mg/dL Hemoglobin (11.4-16.0) gm/dL Sodium (137-145) mmol/L Chloride (98-107) mmol/L Carbon Dioxide (22-30) mmol/L BUN (7-17) mg/dL Glucose (74-99) mg/dL POC Glucose (mg/dL) 119 H (70-110) mg/dL Calcium (8.4-10.2) mg/dL Ionized Calcium Jaleel (4.5-5.3) mg/dL Magnesium (1.6-2.3) mg/dL Total Bilirubin (0.2-1.3) mg/dL AST (14-36) U/L Alkaline Phosphatase (38-126) U/L Total Protein (6.3-8.2) g/dL Albumin (3.5-5.0) g/dL Arterial Blood Potassium (3.4-4.5) mmol/L Crossmatch - Imaging and Cardiology Chest x-ray: image reviewed Assessment and Plan Assessment: Severe mitral regurgitation, moderate to severe tricuspid regurgitation per ENRIQUE, status post mitral valve replacement, tricuspid valve repair Severe pulmonary hypertension Acute heart failure with preserved left ventricular systolic function, EF 55-60% History of mild CAD Hyperlipidemia, treated COPD on home oxygen at night and PRN Recent pneumonia still on Levaquin and IV steroids GERD Previous tobacco dependence, quit 1 month ago, [id number] history Occasional marijuana use Family history of coronary artery disease with mother from myocardial infarction in her 70s Plan: Continue to maximize medical therapy with aspirin, statin, Plavix. Wean levo as tolerated. Will decrease Primacor to 0.2 mcg/kg/min. Hold beta jose due to underlying rhythm Will add low dose ARB for afterload reduction Wean O2 as tolerated. Encourage incentive spirometry use 10 times every hour while awake. Bronchodilators per pulmonology Increase activity, ambulate as tolerated. PT/OT/cardiac rehab consulted Will monitor daily labs and x-rays. Electrolyte replacement per protocol. No further blood transfusion at this time GI/DVT prophylaxis Pain control per current medication regimen, will add toradol Insulin management per internal medicine. Patient is not diabetic, preoperative hemoglobin A1c 5.1%. Patient should remain on continuous IV insulin for 48 hours then may transition to subcutaneous per protocol Continue [place]/Cordis for another 24 hours Continue chest tubes for another 24 hours Continue Licona catheter for another 24 hours, continue to monitor strict accurate intake and output Daily weights More recommendations to follow based on patient's progress
--- NOTE | 2024-02-06 07:48 | XR ---
EXAMINATION TYPE: XR chest 1V portable DATE OF EXAM: 02/06/2024 5:24 AM CLINICAL INDICATION: Female, 68 years old with history of Post Operative Cardiac Surgery; H COMPARISON: Chest radiographs from TECHNIQUE: XR chest 1V portable Frontal view of the chest. FINDINGS: Lungs/Pleura: There is no evidence of pleural effusion, focal consolidation, or pneumothorax. Pulmonary vascularity: Pulmonary vascular congestion. Heart/mediastinum: Cardiomediastinal silhouette is prominent in size. Post aortic valve repair justice es. Left atrial appendage occlusion device is present. Musculoskeletal: No acute osseous pathology. Other findings: None Lines/Tubes: Interval removal of the endotracheal tube. Interval removal of the enteric tube, There is a Mcrae Helena-Luis catheter with tip projecting over the spine. Bilateral thoracotomy tubes are present without evidence of pneumothorax. Drainage tubes with tips projecting over the mediastinum. IMPRESSION: Postsurgical changes no immediate competitions identified. Mild pulmonary edema.
[2024-02-06] MEDS: ASPIRIN 325 MG TAB PO SCH (08:08)
[2024-02-06] MEDS: CHOLECALCIFEROL 25 MCG (1000 IU) TABLET PO SCH (08:09)
[2024-02-06] MEDS: ATORVASTATIN 40 MG TAB PO SCH (08:10)
[2024-02-06] MEDS: CLOPIDOGREL 75 MG TAB PO SCH (08:11)
[2024-02-06] MEDS: PANTOPRAZOLE 40 MG/10 ML VIAL IVP SCH (08:12)
[2024-02-06] MEDS: KETOROLAC 15 MG/ML 1 ML VIAL IVP SCH (08:37)
[2024-02-06] MEDS: IPRATROPIUM-ALBUTEROL 3 ML NEB INHALATION SCH (08:55)
[2024-02-06] MEDS ORDERED: bisacodyL 10 MG SUPP RECTAL PRN (09:00)
[2024-02-06] MEDS ORDERED: METOPROLOL TARTRATE 12.5 MG TAB PO SCH (09:00)
[2024-02-06] MEDS: LOSARTAN 25 MG TAB PO SCH (09:04)
[2024-02-06 09:52] LABS: Glucose,Whole Blood 102 mg/dL (70-110)
[2024-02-06 12:00] LABS: Glucose,Whole Blood 88 mg/dL (70-110)
[2024-02-06] MEDS ORDERED: DEXTROSE 50% SYRINGE 50 ML IVP PRN ×2 (12:14)
--- NOTE | 2024-02-06 12:16 | P.PN ---
Subjective Progress Note Date: 02/06/24 Patient is a 68-year-old female with past medical history significant for COPD, chronic oxygen dependence, chronic ongoing tobacco dependence, hyperlipidemia, hypertension, among other things. Patient reports over the past 1 month she has had 3 episodes of what she attributed to be panic attacks. She was acutely short of breath followed by anxiety. Of note, also had multiple episodes of syncope over the last few months. On December she was evaluated at [facility]. Reportedly underwent heart catheterization, I do not believe she received any percutaneous coronary intervention. She was found to have significant valvular heart disease on transthoracic echocardiogram, official results are not available to me at this time.. Reported affected valves include severe mitral regurgitation and at least moderate to severe aortic regurgitation. Yesterday, patient was transferred to [facility] for ENRIQUE and cardiothoracic surgery consult. Patient is currently in the intensive care unit room 263. She is sitting up in bed on 3 L/min nasal cannula. SpO2 is 100% at rest. Not in any respiratory distress. Reportedly normally wears 2 to 3 L nasal cannula at bedtime. She does have history of COPD and normally utilizes a combination of Trelegy maintenance inhaler and albuterol nebs. She still smokes approximately 1 pack/day. She is wheezing. Denies any infectious symptoms. No change in chronic cough, sputum production, chest pain, fever. We are waiting on chest x-ray. Currently on a combination of Pulmicort, DuoNebs, and IV Solu-Medrol. CBC from outside facility: WBC count 10, hemoglobin 9.9, hematocrit 30.8, platelets 202. BMP from outside facility includes a sodium 143, potassium 4.2, chloride 108, serum bicarb 32, BUN 15, creatinine 0.88, glucose 100. Troponins were mildly elevated. Hemodynamics are stable. On today's evaluation of 02/03/2024, I am seeing the patient for a follow-up. The patient is currently on room air oxygen. ENRIQUE was completed was found to have severe mitral regurgitation, in addition to reversal of flow in the pulmonary veins as well as dilated left atrium and moderate to severe tricuspid regurgitation. Her current cardiac rhythm remains sinus. The patient is hemodynamic stable on room air oxygen. The patient is on DuoNeb nebulized treatments [id number]. The patient is also on IV Solu-Medrol regarding COPD and a dose of 40 mg every 8 hours. Most recent chest x-ray from yesterday showed some mild pulm vascular congestion. Carotid Dopplers showed no critically abnormal stenosis involving the coronary arteries. The patient is awaiting recommendations from cardiothoracic surgery regarding valve surgery. The patient is edentulous. No new labs are available from today. Medications remain unchanged and the patient is currently on Lasix 40 mg p.o. daily the patient is also on metoprolol 75 mg p.o. daily. She is on Celexa and Wellbutrin regarding history of depression. On today's evaluation of 02/04/2024, the patient is being seen for a follow-up. Patient is doing well. She was transferred out of the intensive care unit yesterday. The plan is to proceed with cardiac surgery in the morning. The patient has severe mitral regurgitation and this has been confirmed by ENRIQUE. The patient is scheduled to undergo surgery with mitral valve repair/possible replacement in a.m. on 02/05/2024. The patient is currently on room air oxygen. No signs of any fluid overload. No cardiac arrhythmias. No chest pain. No significant shortness of breath. The white cell count is 12.5 with a hemoglobin 12.1 and a platelet count of 435. Normal coagulation profile. BUN is 36 with a creatinine of 1 and sodium is at 137 and serum bicarbonate 31. LDL cholesterol is at 223. 02/05/2024, the patient is being seen in the intensive care unit immediately after she arrived to the ICU. At this point in time, the patient is sedated and she is on propofol which is at 35 mcg/kg/min. She is well sedated and she is calm and comfortable. She is currently on assist-control mode of mechanical arya tilation at a rate of 14, tidal volume of 350, FiO2 of 100% and a PEEP of 5. Initial blood gases showed a pH of 7.30 with a pCO2 of 49 and pO2 of 422. Based on that, the FiO2 has been dropped down to 50% and I increased the rate up to 20. Chest x-ray was noted and there is no evidence of any pneumothorax. ET tube is in a good location. Goodrich-Luis catheter ideally needs to be advanced by a centimeter. The patient has right-sided chest tube, left-sided chest tube and a mediastinal chest tube. Output from the chest was of been noted. The patient has produced approximately 40 cc of bloody material from the mediastinal chest tube, 30 from the right and 10 from the left. No evidence of any air leak. Hemodynamically, the patient's systolic blood pressure is 97 with a diastolic pressure of 56. Cardiac output is at 2.5 with an index of 1.7. Cardiac rhythm is paced at a rate of 83 and the underlying cardiac rhythm is third-degree AV block. Pulmonary artery pressures of 31/19. SVR is elevated. Currently receiving IV albumin 5% a total of 250cc hide the patient will be also started on milrinone.Patient She may also require norepinephrine for blood pressure support. Urine output is adequate at this point in time. In terms of the blood work, the WBC count is at 7.9, hemoglobin 7.3 and a platelet count of 171. BUN is 26 with a creatinine of 0.77 and a sodium levels of 136. The current temperature is at 36. The patient is sitting external warming measures. Calcium level is at 7.3. 02/06/2024, the patient was examined and evaluated in the ICU. Patient is no longer on propofol, and she was awake and alert and communicating with us during the assessment. She is not in acute distress. She is currently on nasal cannula at 2L with an O2 saturation of 98%. Blood gases showed a pH of 7.37 with a pCO2 of 41, and pO2 of 124. Chest X ray showed mild pulmonary edema. Goodrich-Luis catheter remained in place. The patient has a right sided chest tube, left sided chest tube and a mediastinal chest tube. The patient has produced approximately 40 cc of discharge from the left sided chest tube, 150 cc from the mediastinal tube, and 40 cc from the right chest tube.Hemodynamically, the patients systolic blood pressure is 117 with a diastolic pressure of 53. Cardiac rhythm is paced at a rate of 80 and the underlying cardiac rhythm is third degree AV block. Cardiac output is at 3.4 with an index of 2.3. Pulmonary artery pressure of 36/12. Currently receiving 0.9% NS at 50ml/hr. Patient is also receiving 0.2 milrinone. Urine output is adequate at this point in time. In terms of the blood work, the WBC count is at 9.1, hemoglobin 9.8, and a platelet count of 129. BUN is 26 with a creatinine of 0.76 and a sodium level of 135. Her ABGs showed a pH of 7.37, a pCO2 of 41, and a pO2 of 124. Calcium of 8.0. Objective - Vital Signs Vital signs: Vital Signs Temp 99.7 F H 02/06/24 04:00 Pulse 80 02/06/24 10:00 Resp 16 02/06/24 10:00 BP 124/81 02/06/24 10:00 Pulse Ox 94 L 02/06/24 10:00 FiO2 40 02/05/24 22:05 Intake & Output 02/05/24 02/06/24 02/06/24 18:59 06:59 18:59 Intake Total 8713.151 0637.052 566 Output Total 2620 995 425 Balance -1016.174 851.052 141 Weight 61.1 kg 61.1 kg Intake: IV 337 878 316 NS for cardiac output 100 240 80 NS for pressure flush 36 108 36 Sodium Chloride 0.9% 1, 530 200 000 ml @ 20 mls/hr IV . Q24H KAMINI Rx#:[id number] Intake, IV Titration 1216.826 348.052 Amount ACETAMINOPHEN IV (For NPO 100 ) 1,000 mg In Empty Bag 1 bag @ 400 mls/hr IVPB Q6HR KAMINI Rx#:[id number] Albumin Human 5% 250 ml 750 In Empty Bag 1 bag @ 250 mls/hr IVPB Q1HR PRN Rx#: [id number] Dexmedetomidine/0.9% NaCl 15.975 66.893 (Pmx) 400 mcg In Empty Bag 1 bag @ Titrate IV . Q0M KAMINI Rx#:[id number] Insulin Regular 100 unit 4.899 In Sodium Chloride 0.9% 100 ml @ Per Protocol IV .Q0M KAMINI Rx#:[id number] Milrinone-D5w Pmx 20 mg 23.004 25.191 In Dextrose/Water 1 100ml .bag @ 0.2 MCG/KG/MIN 3. 24 mls/hr IV .Q24H KAMINI Rx #:[id number] Norepinephrine 4 mg In 24.668 124.987 Sodium Chloride 0.9% 250 ml @ 0.02 MCG/KG/MIN 4. 115 mls/hr IV .Q24H KAMINI Rx#:[id number] Sodium Chloride 0.9% 1, 200 100 000 ml @ 20 mls/hr IV . Q24H KAMINI Rx#:[id number] ceFAZolin 2 gm In Sodium 50 Chloride 0.9% 50 ml @ 100 mls/hr IVPB Q8HR KAMINI Rx# :[id number] propofoL 1,000 mg In 53.179 26.082 Empty Bag 1 bag @ Titrate IV .Q0M KAMINI Rx#: [id number] Blood Product 0 620 Rc As-1 Unit 0 310 [id number] Rc As-1 Unit 310 [id number] Albumin 250 Sodium Chloride 0.9% 1, 250 000 ml @ 20 mls/hr IV . Q24H KAMINI Rx#:[id number] Other 50 Output: Chest Tube Drainage 215 500 230 Lt Pleural 50 100 40 Mediastinal 135 240 150 Rt Pleural 30 160 40 Urine 1405 495 195 Estimated Blood Loss 1000 Other: Voiding Method Indwelling Catheter Indwelling Catheter Indwelling Catheter ABP, PAP, CO, CI - Last Documented Arterial Blood Pressure 124/57 Pulmonary Artery Pressure 45/17 Cardiac Output 3.4 Cardiac Index 2.3 - Exam GENERAL EXAM: Alert, 68-year-old white female, not in acute distress HEAD: Normocephalic and atraumatic EYES: Normal reaction of pupils, equal size. NOSE: Clear with pink turbinates. THROAT: No erythema or exudates. NECK: The patient has a right IJ Goodrich-Luis catheter in place CHEST: No chest wall deformity. LUNGS: Equal air entry bilaterally and the patient has a mediastinal, right and left pleural chest tube CVS: Regular heart rate, systolic murmur was heard ABDOMEN: Soft, nondistended, nontender to palpation. SKIN: No rashes or lesions noted CENTRAL NERVOUS SYSTEM: No focal deficits, tone is normal in all 4 extremities. EXTREMITIES: There is no peripheral edema, clubbing, or cyanosis. Peripheral pulses are intact. - Labs CBC & Chem 7: 02/06/24 04:15 02/06/24 04:15 Labs: Abnormal Lab Results - Last 24 Hours (Table) 02/04/24 02/05/24 02/05/24 Range/Units 07:13 10:48 11:16 RBC (3.80-5.40) m/uL Hgb (11.4-16.0) gm/dL Hct (34.0-46.0) % RDW (11.5-15.5) % Plt Count (150-450) k/uL Neutrophils # (1.3-7.7) k/uL Lymphocytes # (1.0-4.8) k/uL PT (10.0-12.5) sec INR (<1.2) APTT (22.0-30.0) sec ABG pH (7.35-7.45) ABG pCO2 46 H (35-45) mmHg ABG pO2 228 H >420 H (83-108) mmHg ABG HCO3 29 H (21-25) mmol/L ABG Total CO2 (19-24) mmol/L ABG O2 Saturation >99.4 H 99.3 H (94-97) % ABG Hematocrit 28 L 22 L (34.0-46.0) % ABG Sodium 134 L (135-146) mmol/L ABG Potassium 3.2 L (3.4-4.5) mmol/L ABG Ionized Calcium 3.7 L (4.5-5.3) mg/dL Hemoglobin 9.3 L 7.1 L (11.4-16.0) gm/dL Sodium (137-145) mmol/L Chloride (98-107) mmol/L Carbon Dioxide (22-30) mmol/L BUN (7-17) mg/dL Glucose (74-99) mg/dL POC Glucose (mg/dL) (70-110) mg/dL Calcium (8.4-10.2) mg/dL Ionized Calcium Jaleel (4.5-5.3) mg/dL Magnesium (1.6-2.3) mg/dL Total Bilirubin (0.2-1.3) mg/dL AST (14-36) U/L Alkaline Phosphatase (38-126) U/L Total Protein (6.3-8.2) g/dL Albumin (3.5-5.0) g/dL Arterial Blood Potassium 3.2 L (3.4-4.5) mmol/L Crossmatch See Detail 02/05/24 02/05/24 02/05/24 Range/Units 11:49 11:54 12:18 RBC (3.80-5.40) m/uL Hgb (11.4-16.0) gm/dL Hct (34.0-46.0) % RDW (11.5-15.5) % Plt Count (150-450) k/uL Neutrophils # (1.3-7.7) k/uL Lymphocytes # (1.0-4.8) k/uL PT (10.0-12.5) sec INR (<1.2) APTT (22.0-30.0) sec ABG pH (7.35-7.45) ABG pCO2 51 H (35-45) mmHg ABG pO2 372 H (83-108) mmHg ABG HCO3 28 H (21-25) mmol/L ABG Total CO2 (19-24) mmol/L ABG O2 Saturation 99.4 H (94-97) % ABG Hematocrit 22 L (34.0-46.0) % ABG Sodium (135-146) mmol/L ABG Potassium 4.9 H (3.4-4.5) mmol/L ABG Ionized Calcium 4.0 L (4.5-5.3) mg/dL Hemoglobin 7.2 L (11.4-16.0) gm/dL Sodium (137-145) mmol/L Chloride (98-107) mmol/L Carbon Dioxide (22-30) mmol/L BUN (7-17) mg/dL Glucose (74-99) mg/dL POC Glucose (mg/dL) 129 H 132 H (70-110) mg/dL Calcium (8.4-10.2) mg/dL Ionized Calcium Jaleel (4.5-5.3) mg/dL Magnesium (1.6-2.3) mg/dL Total Bilirubin (0.2-1.3) mg/dL AST (14-36) U/L Alkaline Phosphatase (38-126) U/L Total Protein (6.3-8.2) g/dL Albumin (3.5-5.0) g/dL Arterial Blood Potassium 4.9 H (3.4-4.5) mmol/L Crossmatch 02/05/24 02/05/24 02/05/24 Range/Units 12:22 12:50 13:23 RBC (3.80-5.40) m/uL Hgb (11.4-16.0) gm/dL Hct (34.0-46.0) % RDW (11.5-15.5) % Plt Count (150-450) k/uL Neutrophils # (1.3-7.7) k/uL Lymphocytes # (1.0-4.8) k/uL PT (10.0-12.5) sec INR (<1.2) APTT (22.0-30.0) sec ABG pH 7.27 L 7.63 H* (7.35-7.45) ABG pCO2 65 H 23 L (35-45) mmHg ABG pO2 350 H 366 H (83-108) mmHg ABG HCO3 30 H (21-25) mmol/L ABG Total CO2 30 H (19-24) mmol/L ABG O2 Saturation 99.0 H 99.4 H (94-97) % ABG Hematocrit 22 L 20 L* (34.0-46.0) % ABG Sodium (135-146) mmol/L ABG Potassium 4.8 H (3.4-4.5) mmol/L ABG Ionized Calcium 4.2 L 3.8 L (4.5-5.3) mg/dL Hemoglobin 7.1 L 6.5 L* (11.4-16.0) gm/dL Sodium (137-145) mmol/L Chloride (98-107) mmol/L Carbon Dioxide (22-30) mmol/L BUN (7-17) mg/dL Glucose (74-99) mg/dL POC Glucose (mg/dL) 124 H (70-110) mg/dL Calcium (8.4-10.2) mg/dL Ionized Calcium Jaleel (4.5-5.3) mg/dL Magnesium (1.6-2.3) mg/dL Total Bilirubin (0.2-1.3) mg/dL AST (14-36) U/L Alkaline Phosphatase (38-126) U/L Total Protein (6.3-8.2) g/dL Albumin (3.5-5.0) g/dL Arterial Blood Potassium 4.8 H (3.4-4.5) mmol/L Crossmatch 02/05/24 02/05/24 02/05/24 Range/Units 13:28 14:48 14:49 RBC 2.45 L (3.80-5.40) m/uL Hgb 7.3 L D (11.4-16.0) gm/dL Hct 22.5 L (34.0-46.0) % RDW 18.0 H (11.5-15.5) % Plt Count (150-450) k/uL Neutrophils # (1.3-7.7) k/uL Lymphocytes # 0.5 L (1.0-4.8) k/uL PT (10.0-12.5) sec INR (<1.2) APTT (22.0-30.0) sec ABG pH 7.33 L (7.35-7.45) ABG pCO2 49 H (35-45) mmHg ABG pO2 >420 H (83-108) mmHg ABG HCO3 26 H (21-25) mmol/L ABG Total CO2 (19-24) mmol/L ABG O2 Saturation 99.4 H (94-97) % ABG Hematocrit 24 L (34.0-46.0) % ABG Sodium (135-146) mmol/L ABG Potassium 4.7 H (3.4-4.5) mmol/L ABG Ionized Calcium 4.4 L (4.5-5.3) mg/dL Hemoglobin 7.8 L (11.4-16.0) gm/dL Sodium (137-145) mmol/L Chloride (98-107) mmol/L Carbon Dioxide (22-30) mmol/L BUN (7-17) mg/dL Glucose (74-99) mg/dL POC Glucose (mg/dL) 131 H (70-110) mg/dL Calcium (8.4-10.2) mg/dL Ionized Calcium Jaleel (4.5-5.3) mg/dL Magnesium (1.6-2.3) mg/dL Total Bilirubin (0.2-1.3) mg/dL AST (14-36) U/L Alkaline Phosphatase (38-126) U/L Total Protein (6.3-8.2) g/dL Albumin (3.5-5.0) g/dL Arterial Blood Potassium 4.7 H (3.4-4.5) mmol/L Crossmatch 02/05/24 02/05/24 02/05/24 Range/Units 14:49 14:49 15:27 RBC (3.80-5.40) m/uL Hgb (11.4-16.0) gm/dL Hct (34.0-46.0) % RDW (11.5-15.5) % Plt Count (150-450) k/uL Neutrophils # (1.3-7.7) k/uL Lymphocytes # (1.0-4.8) k/uL PT 13.9 H (10.0-12.5) sec INR 1.3 H (<1.2) APTT 36.4 H (22.0-30.0) sec ABG pH 7.33 L (7.35-7.45) ABG pCO2 49 H (35-45) mmHg ABG pO2 >420 H (83-108) mmHg ABG HCO3 26 H (21-25) mmol/L ABG Total CO2 27 H (19-24) mmol/L ABG O2 Saturation 100.6 H (94-97) % ABG Hematocrit (34.0-46.0) % ABG Sodium (135-146) mmol/L ABG Potassium (3.4-4.5) mmol/L ABG Ionized Calcium (4.5-5.3) mg/dL Hemoglobin (11.4-16.0) gm/dL Sodium 136 L (137-145) mmol/L Chloride (98-107) mmol/L Carbon Dioxide (22-30) mmol/L BUN 26 H (7-17) mg/dL Glucose 114 H (74-99) mg/dL POC Glucose (mg/dL) (70-110) mg/dL Calcium 7.3 L (8.4-10.2) mg/dL Ionized Calcium Jaleel 4.4 L (4.5-5.3) mg/dL Magnesium 2.9 H (1.6-2.3) mg/dL Total Bilirubin (0.2-1.3) mg/dL AST 67 H (14-36) U/L Alkaline Phosphatase 31 L (38-126) U/L Total Protein 4.2 L (6.3-8.2) g/dL Albumin 2.9 L (3.5-5.0) g/dL Arterial Blood Potassium (3.4-4.5) mmol/L Crossmatch 02/05/24 02/05/24 02/05/24 Range/Units 16:06 17:08 18:00 RBC 1.94 L (3.80-5.40) m/uL Hgb 5.8 L* D (11.4-16.0) gm/dL Hct 18.0 L* (34.0-46.0) % RDW 18.4 H (11.5-15.5) % Plt Count (150-450) k/uL Neutrophils # (1.3-7.7) k/uL Lymphocytes # 0.3 L (1.0-4.8) k/uL PT (10.0-12.5) sec INR (<1.2) APTT (22.0-30.0) sec ABG pH (7.35-7.45) ABG pCO2 (35-45) mmHg ABG pO2 (83-108) mmHg ABG HCO3 (21-25) mmol/L ABG Total CO2 (19-24) mmol/L ABG O2 Saturation (94-97) % ABG Hematocrit (34.0-46.0) % ABG Sodium (135-146) mmol/L ABG Potassium (3.4-4.5) mmol/L ABG Ionized Calcium (4.5-5.3) mg/dL Hemoglobin (11.4-16.0) gm/dL Sodium (137-145) mmol/L Chloride (98-107) mmol/L Carbon Dioxide (22-30) mmol/L BUN (7-17) mg/dL Glucose (74-99) mg/dL POC Glucose (mg/dL) 126 H 129 H (70-110) mg/dL Calcium (8.4-10.2) mg/dL Ionized Calcium Jaleel (4.5-5.3) mg/dL Magnesium (1.6-2.3) mg/dL Total Bilirubin (0.2-1.3) mg/dL AST (14-36) U/L Alkaline Phosphatase (38-126) U/L Total Protein (6.3-8.2) g/dL Albumin (3.5-5.0) g/dL Arterial Blood Potassium (3.4-4.5) mmol/L Crossmatch 02/05/24 02/05/24 02/05/24 Range/Units 18:04 19:00 19:55 RBC (3.80-5.40) m/uL Hgb (11.4-16.0) gm/dL Hct (34.0-46.0) % RDW (11.5-15.5) % Plt Count (150-450) k/uL Neutrophils # (1.3-7.7) k/uL Lymphocytes # (1.0-4.8) k/uL PT (10.0-12.5) sec INR (<1.2) APTT (22.0-30.0) sec ABG pH (7.35-7.45) ABG pCO2 (35-45) mmHg ABG pO2 (83-108) mmHg ABG HCO3 (21-25) mmol/L ABG Total CO2 (19-24) mmol/L ABG O2 Saturation (94-97) % ABG Hematocrit (34.0-46.0) % ABG Sodium (135-146) mmol/L ABG Potassium (3.4-4.5) mmol/L ABG Ionized Calcium (4.5-5.3) mg/dL Hemoglobin (11.4-16.0) gm/dL Sodium (137-145) mmol/L Chloride (98-107) mmol/L Carbon Dioxide (22-30) mmol/L BUN (7-17) mg/dL Glucose (74-99) mg/dL POC Glucose (mg/dL) 134 H 142 H 135 H (70-110) mg/dL Calcium (8.4-10.2) mg/dL Ionized Calcium Jaleel (4.5-5.3) mg/dL Magnesium (1.6-2.3) mg/dL Total Bilirubin (0.2-1.3) mg/dL AST (14-36) U/L Alkaline Phosphatase (38-126) U/L Total Protein (6.3-8.2) g/dL Albumin (3.5-5.0) g/dL Arterial Blood Potassium (3.4-4.5) mmol/L Crossmatch 02/05/24 02/05/24 02/05/24 Range/Units 21:00 21:30 21:32 RBC 3.07 L (3.80-5.40) m/uL Hgb 9.5 L D (11.4-16.0) gm/dL Hct 28.2 L (34.0-46.0) % RDW 16.4 H (11.5-15.5) % Plt Count 141 L (150-450) k/uL Neutrophils # (1.3-7.7) k/uL Lymphocytes # 0.3 L (1.0-4.8) k/uL PT (10.0-12.5) sec INR (<1.2) APTT (22.0-30.0) sec ABG pH (7.35-7.45) ABG pCO2 (35-45) mmHg ABG pO2 (83-108) mmHg ABG HCO3 (21-25) mmol/L ABG Total CO2 (19-24) mmol/L ABG O2 Saturation (94-97) % ABG Hematocrit (34.0-46.0) % ABG Sodium (135-146) mmol/L ABG Potassium (3.4-4.5) mmol/L ABG Ionized Calcium (4.5-5.3) mg/dL Hemoglobin (11.4-16.0) gm/dL Sodium (137-145) mmol/L Chloride (98-107) mmol/L Carbon Dioxide (22-30) mmol/L BUN (7-17) mg/dL Glucose (74-99) mg/dL POC Glucose (mg/dL) 124 H 120 H (70-110) mg/dL Calcium (8.4-10.2) mg/dL Ionized Calcium Jaleel (4.5-5.3) mg/dL Magnesium (1.6-2.3) mg/dL Total Bilirubin (0.2-1.3) mg/dL AST (14-36) U/L Alkaline Phosphatase (38-126) U/L Total Protein (6.3-8.2) g/dL Albumin (3.5-5.0) g/dL Arterial Blood Potassium (3.4-4.5) mmol/L Crossmatch 02/05/24 02/05/24 02/06/24 Range/Units 22:26 22:54 00:08 RBC (3.80-5.40) m/uL Hgb (11.4-16.0) gm/dL Hct (34.0-46.0) % RDW (11.5-15.5) % Plt Count (150-450) k/uL Neutrophils # (1.3-7.7) k/uL Lymphocytes # (1.0-4.8) k/uL PT (10.0-12.5) sec INR (<1.2) APTT (22.0-30.0) sec ABG pH (7.35-7.45) ABG pCO2 (35-45) mmHg ABG pO2 124 H (83-108) mmHg ABG HCO3 (21-25) mmol/L ABG Total CO2 25 H (19-24) mmol/L ABG O2 Saturation 99.4 H (94-97) % ABG Hematocrit (34.0-46.0) % ABG Sodium (135-146) mmol/L ABG Potassium (3.4-4.5) mmol/L ABG Ionized Calcium (4.5-5.3) mg/dL Hemoglobin (11.4-16.0) gm/dL Sodium (137-145) mmol/L Chloride (98-107) mmol/L Carbon Dioxide (22-30) mmol/L BUN (7-17) mg/dL Glucose (74-99) mg/dL POC Glucose (mg/dL) 123 H 112 H (70-110) mg/dL Calcium (8.4-10.2) mg/dL Ionized Calcium Jaleel (4.5-5.3) mg/dL Magnesium (1.6-2.3) mg/dL Total Bilirubin (0.2-1.3) mg/dL AST (14-36) U/L Alkaline Phosphatase (38-126) U/L Total Protein (6.3-8.2) g/dL Albumin (3.5-5.0) g/dL Arterial Blood Potassium (3.4-4.5) mmol/L Crossmatch 02/06/24 02/06/24 02/06/24 Range/Units 01:11 04:15 04:15 RBC 3.16 L (3.80-5.40) m/uL Hgb 9.8 L (11.4-16.0) gm/dL Hct 28.9 L (34.0-46.0) % RDW 16.8 H (11.5-15.5) % Plt Count 129 L (150-450) k/uL Neutrophils # 7.8 H (1.3-7.7) k/uL Lymphocytes # 0.4 L (1.0-4.8) k/uL PT (10.0-12.5) sec INR (<1.2) APTT (22.0-30.0) sec ABG pH (7.35-7.45) ABG pCO2 (35-45) mmHg ABG pO2 (83-108) mmHg ABG HCO3 (21-25) mmol/L ABG Total CO2 (19-24) mmol/L ABG O2 Saturation (94-97) % ABG Hematocrit (34.0-46.0) % ABG Sodium (135-146) mmol/L ABG Potassium (3.4-4.5) mmol/L ABG Ionized Calcium (4.5-5.3) mg/dL Hemoglobin (11.4-16.0) gm/dL Sodium 135 L (137-145) mmol/L Chloride 110 H (98-107) mmol/L Carbon Dioxide 21 L (22-30) mmol/L BUN 21 H (7-17) mg/dL Glucose 100 H (74-99) mg/dL POC Glucose (mg/dL) 111 H (70-110) mg/dL Calcium 8.0 L (8.4-10.2) mg/dL Ionized Calcium Jaleel (4.5-5.3) mg/dL Magnesium (1.6-2.3) mg/dL Total Bilirubin 1.4 H (0.2-1.3) mg/dL AST 90 H (14-36) U/L Alkaline Phosphatase 32 L (38-126) U/L Total Protein 4.7 L (6.3-8.2) g/dL Albumin 3.2 L (3.5-5.0) g/dL Arterial Blood Potassium (3.4-4.5) mmol/L Crossmatch 02/06/24 Range/Units 06:56 RBC (3.80-5.40) m/uL Hgb (11.4-16.0) gm/dL Hct (34.0-46.0) % RDW (11.5-15.5) % Plt Count (150-450) k/uL Neutrophils # (1.3-7.7) k/uL Lymphocytes # (1.0-4.8) k/uL PT (10.0-12.5) sec INR (<1.2) APTT (22.0-30.0) sec ABG pH (7.35-7.45) ABG pCO2 (35-45) mmHg ABG pO2 (83-108) mmHg ABG HCO3 (21-25) mmol/L ABG Total CO2 (19-24) mmol/L ABG O2 Saturation (94-97) % ABG Hematocrit (34.0-46.0) % ABG Sodium (135-146) mmol/L ABG Potassium (3.4-4.5) mmol/L ABG Ionized Calcium (4.5-5.3) mg/dL Hemoglobin (11.4-16.0) gm/dL Sodium (137-145) mmol/L Chloride (98-107) mmol/L Carbon Dioxide (22-30) mmol/L BUN (7-17) mg/dL Glucose (74-99) mg/dL POC Glucose (mg/dL) 119 H (70-110) mg/dL Calcium (8.4-10.2) mg/dL Ionized Calcium Jaleel (4.5-5.3) mg/dL Magnesium (1.6-2.3) mg/dL Total Bilirubin (0.2-1.3) mg/dL AST (14-36) U/L Alkaline Phosphatase (38-126) U/L Total Protein (6.3-8.2) g/dL Albumin (3.5-5.0) g/dL Arterial Blood Potassium (3.4-4.5) mmol/L Crossmatch Assessment and Plan Assessment: Status post mitral valve and 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 The patient is postop day #1. Patient was extubated yesterday and currently remain on nasal cannula at 2L, with an O2 saturation of 98%. Hemodynamically she is on Milrinone at 0.2 mcg/kg/min. Postthoracotomy, Chest x-ray showed mild pulmonary edema. Adequate oxygenation based on the blood gases Third-degree AV block post valve surgery, currently paced at a rate of 80 Valvular heart disease, patient transferred from outside facility for cardiothoracic consult. ENRIQUE confirmed presence of severe mitral regurgitation, moderate-severe tricuspid regurgitation and preserved biventricular function, and the patient is scheduled to undergo mitral valve replacement/repair on 02/05/2024. COPD, recovered from acute COPD exacerbation Postoperative anemia, expected outcome of surgery, monitoring the hemoglobin Anemia, normocytic normochromic Chronic ongoing tobacco dependence, 1 pack/day smoker with over [id number] history History of hyperlipidemia History of hypertension Chronic back pain and she is on Neurontin, and hydrocodone Depression Migraines Smoker Plan: Output from the chest tubes are minimal at this point in time and there is no evidence of pneumothorax Keep the patient paced at a rate of 80 Continue fluid resuscitation the patient is currently on 0.9% NS at 50ml/hr Continue with 0.2 mcg/kg/min milrinone Monitor hemodynamic parameters and keep the Goodrich-Luis in place The patient will be kept in the intensive care unit. Will monitor hemodynamics. Will monitor progress. Will start weaning once she is more hemodynamically stable. Will continue to follow. Critical care evaluation that was done in the intensive care unit, more than 30- minute evaluation. Time with Patient: Greater than 30
--- NOTE | 2024-02-06 12:34 | P.PN ---
Subjective Progress Note Date: 02/06/24 Patient is a 68-year-old female with past medical history significant for COPD, chronic oxygen dependence, chronic ongoing tobacco dependence, hyperlipidemia, hypertension, among other things. Patient reports over the past 1 month she has had 3 episodes of what she attributed to be panic attacks. She was acutely short of breath followed by anxiety. Of note, also had multiple episodes of syncope over the last few months. On December she was evaluated at [facility]. Reportedly underwent heart catheterization, I do not believe she received any percutaneous coronary intervention. She was found to have significant valvular heart disease on transthoracic echocardiogram, officia l results are not available to me at this time.. Reported affected valves include severe mitral regurgitation and at least moderate to severe aortic regurgitation. Yesterday, patient was transferred to [facility] for ENRIQUE and cardiothoracic surgery consult. Patient is currently in the intensive care unit room 263. She is sitting up in bed on 3 L/min nasal cannula. SpO2 is 100% at rest. Not in any respiratory distress. Reportedly normally wears 2 to 3 L nasal cannula at bedtime. She does have history of COPD and normally utilizes a combination of Trelegy maintenance inhaler and albuterol nebs. She still smokes approximately 1 pack/day. She is wheezing. Denies any infectious symptoms. No change in chronic cough, sputum production, chest pain, fever. We are waiting on chest x-ray. Currently on a combination of Pulmicort, DuoNebs, and IV Solu-Medrol. CBC from outside facility: WBC count 10, hemoglobin 9.9, hematocrit 30.8, platelets 202. BMP from outside facility includes a sodium 143, potassium 4.2, chloride 108, serum bicarb 32, BUN 15, creatinine 0.88, glucose 100. Troponins were mildly elevated. Hemodynamics are stable. On today's evaluation of 02/03/2024, I am seeing the patient for a follow-up. The patient is currently on room air oxygen. ENRIQUE was completed was found to have severe mitral regurgitation, in addition to reversal of flow in the pulmonary veins as well as dilated left atrium and moderate to severe tricuspid regurgitation. Her current cardiac rhythm remains sinus. The patient is hemodynamic stable on room air oxygen. The patient is on DuoNeb nebulized treatments [id number]. The patient is also on IV Solu-Medrol regarding COPD and a dose of 40 mg every 8 hours. Most recent chest x-ray from yesterday showed some mild pulm vascular congestion. Carotid Dopplers showed no critically abnormal stenosis involving the coronary arteries. The patient is awaiting recommendations from cardiothoracic surgery regarding valve surgery. The patient is edentulous. No new labs are available from today. Medications remain unchanged and the patient is currently on Lasix 40 mg p.o. daily the patient is also on metoprolol 75 mg p.o. daily. She is on Celexa and Wellbutrin regarding history of depression. On today's evaluation of 02/04/2024, the patient is being seen for a follow-up. Patient is doing well. She was transferred out of the intensive care unit yesterday. The plan is to proceed with cardiac surgery in the morning. The patient has severe mitral regurgitation and this has been confirmed by ENRIQUE. The patient is scheduled to undergo surgery with mitral valve repair/possible replacement in a.m. on 02/05/2024. The patient is currently on room air oxygen. No signs of any fluid overload. No cardiac arrhythmias. No chest pain. No significant shortness of breath. The white cell count is 12.5 with a hemoglobin 12.1 and a platelet count of 435. Normal coagulation profile. BUN is 36 with a creatinine of 1 and sodium is at 137 and serum bicarbonate 31. LDL cholesterol is at 223. 02/05/2024, the patient is being seen in the intensive care unit immediately after she arrived to the ICU. At this point in time, the patient is sedated and she is on propofol which is at 35 mcg/kg/min. She is well sedated and she is calm and comfortable. She is currently on assist-control mode of mechanical ve ntilation at a rate of 14, tidal volume of 350, FiO2 of 100% and a PEEP of 5. Initial blood gases showed a pH of 7.30 with a pCO2 of 49 and pO2 of 422. Based on that, the FiO2 has been dropped down to 50% and I increased the rate up to 20. Chest x-ray was noted and there is no evidence of any pneumothorax. ET tube is in a good location. Ogilvie-Luis catheter ideally needs to be advanced by a centimeter. The patient has right-sided chest tube, left-sided chest tube and a mediastinal chest tube. Output from the chest was of been noted. The patient has produced approximately 40 cc of bloody material from the mediastinal chest tube, 30 from the right and 10 from the left. No evidence of any air leak. Hemodynamically, the patient's systolic blood pressure is 97 with a diastolic pressure of 56. Cardiac output is at 2.5 with an index of 1.7. Cardiac rhythm is paced at a rate of 83 and the underlying cardiac rhythm is third-degree AV block. Pulmonary artery pressures of 31/19. SVR is elevated. Currently receiving IV albumin 5% a total of 250cc hide the patient will be also started on milrinone.Patient She may also require norepinephrine for blood pressure support. Urine output is adequate at this point in time. In terms of the blood work, the WBC count is at 7.9, hemoglobin 7.3 and a platelet count of 171. BUN is 26 with a creatinine of 0.77 and a sodium levels of 136. The current temperature is at 36. The patient is sitting external warming measures. Calcium level is at 7.3. 02/06/2024, the patient is being seen for a follow-up. The patient is postop day number 1 following mitral valve and tricuspid valve replacement. The patient was weaned off the mechanical ventilator the patient was extubated yesterday and the patient is currently on room air oxygen. she has no significant respiratory distress. The patient is using the incentive spirometer. Chest x-ray from today shows no evidence of any pneumothorax. Chest tubes are still in place. The mediastinal chest tube Produced 550 cc, left pleural produced 300 cc in the right chest tube was produced 250 cc surgery. The patient's output is serosanguineous/bloody. Hemodynamically, the patient underlying cardiac rhythm is stable third-degree AV block. The patient is being paced at a rate of 80. T he patient was started on a combination of milrinone and norepinephrine. Norepinephrine was discontinued the patient is currently on milrinone which is running at 0.2 mcg/kg/min. The most recent hemodynamic parameters show a cardiac output of 3.4 with an index of 2.3. PA pressures of 47/70. CVP is at 9. Noted the patient had received 2 units of packed RBC in the operating room. Hemoglobin stable at 9.8 with a white cell count of 9.1. Platelet count is at 129. BUN is 21 with a creatinine of 0.7. Electrolytes are all within normal limits. The patient is afebrile. Awake and alert and communicating. Beta- blockers are still on hold. Objective - Vital Signs Vital signs: Vital Signs Temp 99.7 F H 02/06/24 04:00 Pulse 80 02/06/24 09:17 Resp 17 02/06/24 09:00 BP 125/80 02/06/24 09:00 Pulse Ox 93 L 02/06/24 09:00 FiO2 40 02/05/24 22:05 Intake & Output 02/05/24 02/06/24 02/06/24 18:59 06:59 18:59 Intake Total 9779.727 6950.052 487 Output Total 2620 995 330 Balance -1016.174 851.052 157 Weight 61.1 kg Intake: IV 337 878 237 NS for cardiac output 100 240 60 NS for pressure flush 36 108 27 Sodium Chloride 0.9% 1, 530 150 000 ml @ 20 mls/hr IV . Q24H KAMINI Rx#:[id number] Intake, IV Titration 1216.826 348.052 Amount ACETAMINOPHEN IV (For NPO 100 ) 1,000 mg In Empty Bag 1 bag @ 400 mls/hr IVPB Q6HR KAMINI Rx#:[id number] Albumin Human 5% 250 ml 750 In Empty Bag 1 bag @ 250 mls/hr IVPB Q1HR PRN Rx#: [id number] Dexmedetomidine/0.9% NaCl 15.975 66.893 (Pmx) 400 mcg In Empty Bag 1 bag @ Titrate IV . Q0M KAMINI Rx#:[id number] Insulin Regular 100 unit 4.899 In Sodium Chloride 0.9% 100 ml @ Per Protocol IV .Q0M KAMINI Rx#:[id number] Milrinone-D5w Pmx 20 mg 23.004 25.191 In Dextrose/Water 1 100ml .bag @ 0.2 MCG/KG/MIN 3. 24 mls/hr IV .Q24H KAMINI Rx #:[id number] Norepinephrine 4 mg In 24.668 124.987 Sodium Chloride 0.9% 250 ml @ 0.02 MCG/KG/MIN 4. 115 mls/hr IV .Q24H KAMINI Rx#:[id number] Sodium Chloride 0.9% 1, 200 100 000 ml @ 20 mls/hr IV . Q24H KAMINI Rx#:[id number] ceFAZolin 2 gm In Sodium 50 Chloride 0.9% 50 ml @ 100 mls/hr IVPB Q8HR KAMINI Rx# :[id number] propofoL 1,000 mg In 53.179 26.082 Empty Bag 1 bag @ Titrate IV .Q0M KAMINI Rx#: [id number] Blood Product 0 620 Rc As-1 Unit 0 310 [id number] Rc As-1 Unit 310 [id number] Albumin 250 Sodium Chloride 0.9% 1, 250 000 ml @ 20 mls/hr IV . Q24H KAMINI Rx#:[id number] Other 50 Output: Chest Tube Drainage 215 500 160 Lt Pleural 50 100 30 Mediastinal 135 240 120 Rt Pleural 30 160 10 Urine 1405 495 170 Estimated Blood Loss 1000 Other: Voiding Method Indwelling Catheter Indwelling Catheter ABP, PAP, CO, CI - Last Documented Arterial Blood Pressure 130/58 Pulmonary Artery Pressure 44/16 Cardiac Output 4.2 Cardiac Index 2.8 - Exam GENERAL EXAM: Alert, 68-year-old white female, awake and alert) on room air oxygen. HEAD: Normocephalic and atraumatic EYES: Normal reaction of pupils, equal size. NOSE: Clear with pink turbinates. THROAT: No erythema or exudates. NECK: No masses, no JVD. The patient has a right IJ Ogilvie-Luis catheter in place CHEST: No chest wall deformity. LUNGS: Equal air entry bilaterally and the patient has a mediastinal, right and left pleural chest tube CVS: S1 and S2 normal with harsh systolic murmur mainly heard over the left lung apex, regular rhythm. No other extra heart sounds, cardiac rhythmis rate of 80 ABDOMEN: No hepatosplenomegaly, active bowel sounds, no guarding or rigidity. SPINE: No scoliosis or deformity SKIN: No rashes CENTRAL NERVOUS SYSTEM: No focal deficits, tone is normal in all 4 extremities. Neurologically, the patient is awake and alert and the patient does not have any focal neurological deficit. Cranial nerves are essentially intact. EXTREMITIES: There is no peripheral edema, clubbing, or cyanosis. Peripheral pulses are intact. - Labs CBC & Chem 7: 02/06/24 04:15 02/06/24 04:15 Labs: Abnormal Lab Results - Last 24 Hours (Table) 02/04/24 02/05/24 02/05/24 Range/Units 07:13 10:48 11:16 RBC (3.80-5.40) m/uL Hgb (11.4-16.0) gm/dL Hct (34.0-46.0) % RDW (11.5-15.5) % Plt Count (150-450) k/uL Neutrophils # (1.3-7.7) k/uL Lymphocytes # (1.0-4.8) k/uL PT (10.0-12.5) sec INR (<1.2) APTT (22.0-30.0) sec ABG pH (7.35-7.45) ABG pCO2 46 H (35-45) mmHg ABG pO2 228 H >420 H (83-108) mmHg ABG HCO3 29 H (21-25) mmol/L ABG Total CO2 (19-24) mmol/L ABG O2 Saturation >99.4 H 99.3 H (94-97) % ABG Hematocrit 28 L 22 L (34.0-46.0) % ABG Sodium 134 L (135-146) mmol/L ABG Potassium 3.2 L (3.4-4.5) mmol/L ABG Ionized Calcium 3.7 L (4.5-5.3) mg/dL Hemoglobin 9.3 L 7.1 L (11.4-16.0) gm/dL Sodium (137-145) mmol/L Chloride (98-107) mmol/L Carbon Dioxide (22-30) mmol/L BUN (7-17) mg/dL Glucose (74-99) mg/dL POC Glucose (mg/dL) (70-110) mg/dL Calcium (8.4-10.2) mg/dL Ionized Calcium Jaleel (4.5-5.3) mg/dL Magnesium (1.6-2.3) mg/dL Total Bilirubin (0.2-1.3) mg/dL AST (14-36) U/L Alkaline Phosphatase (38-126) U/L Total Protein (6.3-8.2) g/dL Albumin (3.5-5.0) g/dL Arterial Blood Potassium 3.2 L (3.4-4.5) mmol/L Crossmatch See Detail 02/05/24 02/05/24 02/05/24 Range/Units 11:49 11:54 12:18 RBC (3.80-5.40) m/uL Hgb (11.4-16.0) gm/dL Hct (34.0-46.0) % RDW (11.5-15.5) % Plt Count (150-450) k/uL Neutrophils # (1.3-7.7) k/uL Lymphocytes # (1.0-4.8) k/uL PT (10.0-12.5) sec INR (<1.2) APTT (22.0-30.0) sec ABG pH (7.35-7.45) ABG pCO2 51 H (35-45) mmHg ABG pO2 372 H (83-108) mmHg ABG HCO3 28 H (21-25) mmol/L ABG Total CO2 (19-24) mmol/L ABG O2 Saturation 99.4 H (94-97) % ABG Hematocrit 22 L (34.0-46.0) % ABG Sodium (135-146) mmol/L ABG Potassium 4.9 H (3.4-4.5) mmol/L ABG Ionized Calcium 4.0 L (4.5-5.3) mg/dL Hemoglobin 7.2 L (11.4-16.0) gm/dL Sodium (137-145) mmol/L Chloride (98-107) mmol/L Carbon Dioxide (22-30) mmol/L BUN (7-17) mg/dL Glucose (74-99) mg/dL POC Glucose (mg/dL) 129 H 132 H (70-110) mg/dL Calcium (8.4-10.2) mg/dL Ionized Calcium Jaleel (4.5-5.3) mg/dL Magnesium (1.6-2.3) mg/dL Total Bilirubin (0.2-1.3) mg/dL AST (14-36) U/L Alkaline Phosphatase (38-126) U/L Total Protein (6.3-8.2) g/dL Albumin (3.5-5.0) g/dL Arterial Blood Potassium 4.9 H (3.4-4.5) mmol/L Crossmatch 02/05/24 02/05/24 02/05/24 Range/Units 12:22 12:50 13:23 RBC (3.80-5.40) m/uL Hgb (11.4-16.0) gm/dL Hct (34.0-46.0) % RDW (11.5-15.5) % Plt Count (150-450) k/uL Neutrophils # (1.3-7.7) k/uL Lymphocytes # (1.0-4.8) k/uL PT (10.0-12.5) sec INR (<1.2) APTT (22.0-30.0) sec ABG pH 7.27 L 7.63 H* (7.35-7.45) ABG pCO2 65 H 23 L (35-45) mmHg ABG pO2 350 H 366 H (83-108) mmHg ABG HCO3 30 H (21-25) mmol/L ABG Total CO2 30 H (19-24) mmol/L ABG O2 Saturation 99.0 H 99.4 H (94-97) % ABG Hematocrit 22 L 20 L* (34.0-46.0) % ABG Sodium (135-146) mmol/L ABG Potassium 4.8 H (3.4-4.5) mmol/L ABG Ionized Calcium 4.2 L 3.8 L (4.5-5.3) mg/dL Hemoglobin 7.1 L 6.5 L* (11.4-16.0) gm/dL Sodium (137-145) mmol/L Chloride (98-107) mmol/L Carbon Dioxide (22-30) mmol/L BUN (7-17) mg/dL Glucose (74-99) mg/dL POC Glucose (mg/dL) 124 H (70-110) mg/dL Calcium (8.4-10.2) mg/dL Ionized Calcium Jaleel (4.5-5.3) mg/dL Magnesium (1.6-2.3) mg/dL Total Bilirubin (0.2-1.3) mg/dL AST (14-36) U/L Alkaline Phosphatase (38-126) U/L Total Protein (6.3-8.2) g/dL Albumin (3.5-5.0) g/dL Arterial Blood Potassium 4.8 H (3.4-4.5) mmol/L Crossmatch 0902/05/24 02/05/24 Range/Units 13:28 14:48 14:49 RBC 2.45 L (3.80-5.40) m/uL Hgb 7.3 L D (11.4-16.0) gm/dL Hct 22.5 L (34.0-46.0) % RDW 18.0 H (11.5-15.5) % Plt Count (150-450) k/uL Neutrophils # (1.3-7.7) k/uL Lymphocytes # 0.5 L (1.0-4.8) k/uL PT (10.0-12.5) sec INR (<1.2) APTT (22.0-30.0) sec ABG pH 7.33 L (7.35-7.45) ABG pCO2 49 H (35-45) mmHg ABG pO2 >420 H (83-108) mmHg ABG HCO3 26 H (21-25) mmol/L ABG Total CO2 (19-24) mmol/L ABG O2 Saturation 99.4 H (94-97) % ABG Hematocrit 24 L (34.0-46.0) % ABG Sodium (135-146) mmol/L ABG Potassium 4.7 H (3.4-4.5) mmol/L ABG Ionized Calcium 4.4 L (4.5-5.3) mg/dL Hemoglobin 7.8 L (11.4-16.0) gm/dL Sodium (137-145) mmol/L Chloride (98-107) mmol/L Carbon Dioxide (22-30) mmol/L BUN (7-17) mg/dL Glucose (74-99) mg/dL POC Glucose (mg/dL) 131 H (70-110) mg/dL Calcium (8.4-10.2) mg/dL Ionized Calcium Jaleel (4.5-5.3) mg/dL Magnesium (1.6-2.3) mg/dL Total Bilirubin (0.2-1.3) mg/dL AST (14-36) U/L Alkaline Phosphatase (38-126) U/L Total Protein (6.3-8.2) g/dL Albumin (3.5-5.0) g/dL Arterial Blood Potassium 4.7 H (3.4-4.5) mmol/L Crossmatch 02/05/24 02/05/24 02/05/24 Range/Units 14:49 14:49 15:27 RBC (3.80-5.40) m/uL Hgb (11.4-16.0) gm/dL Hct (34.0-46.0) % RDW (11.5-15.5) % Plt Count (150-450) k/uL Neutrophils # (1.3-7.7) k/uL Lymphocytes # (1.0-4.8) k/uL PT 13.9 H (10.0-12.5) sec INR 1.3 H (<1.2) APTT 36.4 H (22.0-30.0) sec ABG pH 7.33 L (7.35-7.45) ABG pCO2 49 H (35-45) mmHg ABG pO2 >420 H (83-108) mmHg ABG HCO3 26 H (21-25) mmol/L ABG Total CO2 27 H (19-24) mmol/L ABG O2 Saturation 100.6 H (94-97) % ABG Hematocrit (34.0-46.0) % ABG Sodium (135-146) mmol/L ABG Potassium (3.4-4.5) mmol/L ABG Ionized Calcium (4.5-5.3) mg/dL Hemoglobin (11.4-16.0) gm/dL Sodium 136 L (137-145) mmol/L Chloride (98-107) mmol/L Carbon Dioxide (22-30) mmol/L BUN 26 H (7-17) mg/dL Glucose 114 H (74-99) mg/dL POC Glucose (mg/dL) (70-110) mg/dL Calcium 7.3 L (8.4-10.2) mg/dL Ionized Calcium Jaleel 4.4 L (4.5-5.3) mg/dL Magnesium 2.9 H (1.6-2.3) mg/dL Total Bilirubin (0.2-1.3) mg/dL AST 67 H (14-36) U/L Alkaline Phosphatase 31 L (38-126) U/L Total Protein 4.2 L (6.3-8.2) g/dL Albumin 2.9 L (3.5-5.0) g/dL Arterial Blood Potassium (3.4-4.5) mmol/L Crossmatch 02/05/24 02/05/24 02/05/24 Range/Units 16:06 17:08 18:00 RBC 1.94 L (3.80-5.40) m/uL Hgb 5.8 L* D (11.4-16.0) gm/dL Hct 18.0 L* (34.0-46.0) % RDW 18.4 H (11.5-15.5) % Plt Count (150-450) k/uL Neutrophils # (1.3-7.7) k/uL Lymphocytes # 0.3 L (1.0-4.8) k/uL PT (10.0-12.5) sec INR (<1.2) APTT (22.0-30.0) sec ABG pH (7.35-7.45) ABG pCO2 (35-45) mmHg ABG pO2 (83-108) mmHg ABG HCO3 (21-25) mmol/L ABG Total CO2 (19-24) mmol/L ABG O2 Saturation (94-97) % ABG Hematocrit (34.0-46.0) % ABG Sodium (135-146) mmol/L ABG Potassium (3.4-4.5) mmol/L ABG Ionized Calcium (4.5-5.3) mg/dL Hemoglobin (11.4-16.0) gm/dL Sodium (137-145) mmol/L Chloride (98-107) mmol/L Carbon Dioxide (22-30) mmol/L BUN (7-17) mg/dL Glucose (74-99) mg/dL POC Glucose (mg/dL) 126 H 129 H (70-110) mg/dL Calcium (8.4-10.2) mg/dL Ionized Calcium Jaleel (4.5-5.3) mg/dL Magnesium (1.6-2.3) mg/dL Total Bilirubin (0.2-1.3) mg/dL AST (14-36) U/L Alkaline Phosphatase (38-126) U/L Total Protein (6.3-8.2) g/dL Albumin (3.5-5.0) g/dL Arterial Blood Potassium (3.4-4.5) mmol/L Crossmatch 02/05/24 02/05/24 02/05/24 Range/Units 18:04 19:00 19:55 RBC (3.80-5.40) m/uL Hgb (11.4-16.0) gm/dL Hct (34.0-46.0) % RDW (11.5-15.5) % Plt Count (150-450) k/uL Neutrophils # (1.3-7.7) k/uL Lymphocytes # (1.0-4.8) k/uL PT (10.0-12.5) sec INR (<1.2) APTT (22.0-30.0) sec ABG pH (7.35-7.45) ABG pCO2 (35-45) mmHg ABG pO2 (83-108) mmHg ABG HCO3 (21-25) mmol/L ABG Total CO2 (19-24) mmol/L ABG O2 Saturation (94-97) % ABG Hematocrit (34.0-46.0) % ABG Sodium (135-146) mmol/L ABG Potassium (3.4-4.5) mmol/L ABG Ionized Calcium (4.5-5.3) mg/dL Hemoglobin (11.4-16.0) gm/dL Sodium (137-145) mmol/L Chloride (98-107) mmol/L Carbon Dioxide (22-30) mmol/L BUN (7-17) mg/dL Glucose (74-99) mg/dL POC Glucose (mg/dL) 134 H 142 H 135 H (70-110) mg/dL Calcium (8.4-10.2) mg/dL Ionized Calcium Jaleel (4.5-5.3) mg/dL Magnesium (1.6-2.3) mg/dL Total Bilirubin (0.2-1.3) mg/dL AST (14-36) U/L Alkaline Phosphatase (38-126) U/L Total Protein (6.3-8.2) g/dL Albumin (3.5-5.0) g/dL Arterial Blood Potassium (3.4-4.5) mmol/L Crossmatch 02/05/24 02/05/24 02/05/24 Range/Units 21:00 21:30 21:32 RBC 3.07 L (3.80-5.40) m/uL Hgb 9.5 L D (11.4-16.0) gm/dL Hct 28.2 L (34.0-46.0) % RDW 16.4 H (11.5-15.5) % Plt Count 141 L (150-450) k/uL Neutrophils # (1.3-7.7) k/uL Lymphocytes # 0.3 L (1.0-4.8) k/uL PT (10.0-12.5) sec INR (<1.2) APTT (22.0-30.0) sec ABG pH (7.35-7.45) ABG pCO2 (35-45) mmHg ABG pO2 (83-108) mmHg ABG HCO3 (21-25) mmol/L ABG Total CO2 (19-24) mmol/L ABG O2 Saturation (94-97) % ABG Hematocrit (34.0-46.0) % ABG Sodium (135-146) mmol/L ABG Potassium (3.4-4.5) mmol/L ABG Ionized Calcium (4.5-5.3) mg/dL Hemoglobin (11.4-16.0) gm/dL Sodium (137-145) mmol/L Chloride (98-107) mmol/L Carbon Dioxide (22-30) mmol/L BUN (7-17) mg/dL Glucose (74-99) mg/dL POC Glucose (mg/dL) 124 H 120 H (70-110) mg/dL Calcium (8.4-10.2) mg/dL Ionized Calcium Jaleel (4.5-5.3) mg/dL Magnesium (1.6-2.3) mg/dL Total Bilirubin (0.2-1.3) mg/dL AST (14-36) U/L Alkaline Phosphatase (38-126) U/L Total Protein (6.3-8.2) g/dL Albumin (3.5-5.0) g/dL Arterial Blood Potassium (3.4-4.5) mmol/L Crossmatch 02/05/24 02/05/24 02/06/24 Range/Units 22:26 22:54 00:08 RBC (3.80-5.40) m/uL Hgb (11.4-16.0) gm/dL Hct (34.0-46.0) % RDW (11.5-15.5) % Plt Count (150-450) k/uL Neutrophils # (1.3-7.7) k/uL Lymphocytes # (1.0-4.8) k/uL PT (10.0-12.5) sec INR (<1.2) APTT (22.0-30.0) sec ABG pH (7.35-7.45) ABG pCO2 (35-45) mmHg ABG pO2 124 H (83-108) mmHg ABG HCO3 (21-25) mmol/L ABG Total CO2 25 H (19-24) mmol/L ABG O2 Saturation 99.4 H (94-97) % ABG Hematocrit (34.0-46.0) % ABG Sodium (135-146) mmol/L ABG Potassium (3.4-4.5) mmol/L ABG Ionized Calcium (4.5-5.3) mg/dL Hemoglobin (11.4-16.0) gm/dL Sodium (137-145) mmol/L Chloride (98-107) mmol/L Carbon Dioxide (22-30) mmol/L BUN (7-17) mg/dL Glucose (74-99) mg/dL POC Glucose (mg/dL) 123 H 112 H (70-110) mg/dL Calcium (8.4-10.2) mg/dL Ionized Calcium Jaleel (4.5-5.3) mg/dL Magnesium (1.6-2.3) mg/dL Total Bilirubin (0.2-1.3) mg/dL AST (14-36) U/L Alkaline Phosphatase (38-126) U/L Total Protein (6.3-8.2) g/dL Albumin (3.5-5.0) g/dL Arterial Blood Potassium (3.4-4.5) mmol/L Crossmatch 02/06/24 02/06/24 02/06/24 Range/Units 01:11 04:15 04:15 RBC 3.16 L (3.80-5.40) m/uL Hgb 9.8 L (11.4-16.0) gm/dL Hct 28.9 L (34.0-46.0) % RDW 16.8 H (11.5-15.5) % Plt Count 129 L (150-450) k/uL Neutrophils # 7.8 H (1.3-7.7) k/uL Lymphocytes # 0.4 L (1.0-4.8) k/uL PT (10.0-12.5) sec INR (<1.2) APTT (22.0-30.0) sec ABG pH (7.35-7.45) ABG pCO2 (35-45) mmHg ABG pO2 (83-108) mmHg ABG HCO3 (21-25) mmol/L ABG Total CO2 (19-24) mmol/L ABG O2 Saturation (94-97) % ABG Hematocrit (34.0-46.0) % ABG Sodium (135-146) mmol/L ABG Potassium (3.4-4.5) mmol/L ABG Ionized Calcium (4.5-5.3) mg/dL Hemoglobin (11.4-16.0) gm/dL Sodium 135 L (137-145) mmol/L Chloride 110 H (98-107) mmol/L Carbon Dioxide 21 L (22-30) mmol/L BUN 21 H (7-17) mg/dL Glucose 100 H (74-99) mg/dL POC Glucose (mg/dL) 111 H (70-110) mg/dL Calcium 8.0 L (8.4-10.2) mg/dL Ionized Calcium Jaleel (4.5-5.3) mg/dL Magnesium (1.6-2.3) mg/dL Total Bilirubin 1.4 H (0.2-1.3) mg/dL AST 90 H (14-36) U/L Alkaline Phosphatase 32 L (38-126) U/L Total Protein 4.7 L (6.3-8.2) g/dL Albumin 3.2 L (3.5-5.0) g/dL Arterial Blood Potassium (3.4-4.5) mmol/L Crossmatch 02/06/24 Range/Units 06:56 RBC (3.80-5.40) m/uL Hgb (11.4-16.0) gm/dL Hct (34.0-46.0) % RDW (11.5-15.5) % Plt Count (150-450) k/uL Neutrophils # (1.3-7.7) k/uL Lymphocytes # (1.0-4.8) k/uL PT (10.0-12.5) sec INR (<1.2) APTT (22.0-30.0) sec ABG pH (7.35-7.45) ABG pCO2 (35-45) mmHg ABG pO2 (83-108) mmHg ABG HCO3 (21-25) mmol/L ABG Total CO2 (19-24) mmol/L ABG O2 Saturation (94-97) % ABG Hematocrit (34.0-46.0) % ABG Sodium (135-146) mmol/L ABG Potassium (3.4-4.5) mmol/L ABG Ionized Calcium (4.5-5.3) mg/dL Hemoglobin (11.4-16.0) gm/dL Sodium (137-145) mmol/L Chloride (98-107) mmol/L Carbon Dioxide (22-30) mmol/L BUN (7-17) mg/dL Glucose (74-99) mg/dL POC Glucose (mg/dL) 119 H (70-110) mg/dL Calcium (8.4-10.2) mg/dL Ionized Calcium Jaleel (4.5-5.3) mg/dL Magnesium (1.6-2.3) mg/dL Total Bilirubin (0.2-1.3) mg/dL AST (14-36) U/L Alkaline Phosphatase (38-126) U/L Total Protein (6.3-8.2) g/dL Albumin (3.5-5.0) g/dL Arterial Blood Potassium (3.4-4.5) mmol/L Crossmatch Assessment and Plan Assessment: Status post mitral valve and 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 The patient is postop day # 1. Patient is requiring milrinone for inotrope and augmentation of the cardiac output. The patient is currently off norepinephrine. Hemodynamic parameters have been noted. Cardiac rhythm is still paced with a rate of 80. Postthoracotomy, currently extubated to room air oxygen and the patient has chest tubes in place. Output is minimal at this point in time. Third-degree AV block post valve surgery, currently paced at a rate of 80 Valvular heart disease, patient transferred from outside facility for cardiothoracic consult. ENRIQUE confirmed presence of severe mitral regurgitation, moderate-severe tricuspid regurgitation and preserved biventricular function, a nd the patient is scheduled to undergo mitral valve replacement/repair on 02/05/2024. COPD, recovered from acute COPD exacerbation Postoperative anemia, expected outcome of surgery, monitoring the hemoglobin, received 2 units of packed RBC intraoperatively. Anemia, normocytic normochromic Chronic ongoing tobacco dependence, 1 pack/day smoker with over [id number] history History of hyperlipidemia History of hypertension Chronic back pain and she is on Neurontin, and hydrocodone Depression Migraines Smoker Plan: Awake and alert without any focal neurological deficits Encouraged to use her incentive spirometer Monitor hemodynamic parameters Output from the chest tubes are minimal at this point in time and there is no evidence of pneumothorax Keep the patient paced at a rate of 80 Continue milrinone and norepinephrine was discontinued Hemoglobin is stable Monitor hemodynamic parameters and keep the Ogilvie-Luis in place The patient will be kept in the intensive care unit. Will monitor hemodynamics. Will monitor progress. Will start weaning once she is more hemodynamically s table. Will continue to follow. Critical care evaluation that was done in the intensive care unit, more than 30- minute evaluation. Time with Patient: Greater than 30
--- NOTE | 2024-02-06 13:31 | PN ---
PROGRESS NOTE SUBJECTIVE: A 68-year-old white female. She remains in ICU 265, sitting up in a recliner, intensive care, in no acute distress, extubated last night at 22:35, AV paced at 80, underlying complete heart block. She is on IV Primacor, low dose pain. Denies shortness of breath, take a deep breath, she is on oxygen. She had 2 units of packed red blood cells. Hemoglobin 5.8 and now 9.8. OBJECTIVE: VITAL SIGNS: Temperature 99.7, pulse 80, respiratory rate 20 to 22, blood pressure 109/52, pulse ox 98, FiO2 is 40. She is very anxious, nervous. LUNGS: Diminished. HEART: S1 and S2. Complete heart block and rhythm. GI: Soft. GENITOURINARY: 35 to 60 per hour. INTEGUMENT: No rash, excoriations, or bruising. NEUROLOGIC: She is intact. PSYCH: Appear anxious. Her chest tubes are intact. LABORATORY DATA: Hemoglobin is 9.8, white count is 9.1, BUN is 21, creatinine 0.76. ABG reviewed. ASSESSMENT: Severe mitral regurgitation and tricuspid regurgitation status post mitral valve replacement, tricuspid valve repair, severe pulmonary hypertension. Ejection fraction 55 to 60. Mild coronary artery disease, gastroesophageal reflux disease, recurrent pneumonia, maximize therapy. She is on aspirin, statins, Plavix, cardiac rehab. Home medicines will be continued, her sugar A1c is 5.1. Continue standard postop care. Prognosis guarded. Please see further orders. MMODL / IJN: [id number] /
[2024-02-06] MEDS: INSULIN ASPART (NovoLOG) 100 UNIT/ML VIAL SQ SCH (13:36)
--- NOTE | 2024-02-06 15:23 | P.PN ---
Subjective Progress Note Date: 02/06/24 02/06/2024 PA pressure 31/11, arterial line blood pressure 87 over 39 mmHg, heart rate 80 bpm patient is being paced continuously from epicardial pacers. Last CVP reading was around 6 Patient has [address], right IJ [place]Luis catheter is in place. Cardiac index is measured at 2.1, cardiac output is being measured at 3.2 Patient has appropriate urine output around 20 cc/h Patient is getting albumin and milrinone drip. 0.2 mcg. Reduced from 0.3 mcg No concerns of arrhythmia on telemetry monitoring On exam Patient is sitting in a chair, alert oriented, denies any acute distress Surgical scar is healing well in the central chest, no significant murmurs appreciated on cardiac examination, regular pulses, Poor inspiratory effort with diminished breath sounds, no significant crackles or rhonchi audible No significant swelling in bilateral lower extremity, Chest tube in place Licona catheter in place Abdomen is nondistended, nontender appropriate bowel sounds Detailed neuroexam was not performed, alert oriented to time place and person ASSESSMENT: status post mitral valve replacement with 29 mm Hannah Resilia bioprosthetic mitral valve, tricuspid valve repair with ring, atrial clip ligation, Severe mitral regurgitation, moderate to severe tricuspid regurgitation, moderate aortic insufficiency, Residual moderate aortic sufficiency h/o of COPD History of hypertension History of hyperlipidemia Nicotine dependence with recent smoking cessation, quit 1 month ago PLAN: Continue epicardial pacing at 80 beats minute today. Consider reducing the heart rate to 60 bpm see if patient has any intrinsic cardiac rhythm Central line, [place]-Luis, chest tube management as per the CT surgery team Consider reducing milrinone and albumin Encourage p.o. intake Encourage ambulation and sitting up in the chair Objective - Vital Signs Vital signs: Vital Signs Temp 99.7 F H 02/06/24 04:00 Pulse 80 02/06/24 14:00 Resp 16 02/06/24 14:00 BP 102/64 02/06/24 14:00 Pulse Ox 93 L 02/06/24 14:00 FiO2 40 02/05/24 22:05 Intake & Output 02/05/24 02/06/24 02/06/24 18:59 06:59 18:59 Intake Total 5321.021 7717.052 860.306 Output Total 2620 995 705 Balance -1016.174 851.052 155.306 Weight 61.1 kg 61.1 kg Intake: IV 337 878 592 NS for cardiac output 100 240 160 NS for pressure flush 36 108 72 Sodium Chloride 0.9% 1, 530 360 000 ml @ 20 mls/hr IV . Q24H KAMINI Rx#:[id number] Intake, IV Titration 1216.826 348.052 18.306 Amount ACETAMINOPHEN IV (For NPO 100 ) 1,000 mg In Empty Bag 1 bag @ 400 mls/hr IVPB Q6HR KAMINI Rx#:[id number] Albumin Human 5% 250 ml 750 In Empty Bag 1 bag @ 250 mls/hr IVPB Q1HR PRN Rx#: [id number] Dexmedetomidine/0.9% NaCl 15.975 66.893 (Pmx) 400 mcg In Empty Bag 1 bag @ Titrate IV . Q0M KAMINI Rx#:[id number] Insulin Regular 100 unit 4.899 In Sodium Chloride 0.9% 100 ml @ Per Protocol IV .Q0M KAMINI Rx#:[id number] Milrinone-D5w Pmx 20 mg 23.004 25.191 18.306 In Dextrose/Water 1 100ml .bag @ 0.2 MCG/KG/MIN 3. 24 mls/hr IV .Q24H KAMINI Rx #:[id number] Norepinephrine 4 mg In 24.668 124.987 Sodium Chloride 0.9% 250 ml @ 0.02 MCG/KG/MIN 4. 115 mls/hr IV .Q24H KAMINI Rx#:[id number] Sodium Chloride 0.9% 1, 200 100 000 ml @ 20 mls/hr IV . Q24H KAMINI Rx#:[id number] ceFAZolin 2 gm In Sodium 50 Chloride 0.9% 50 ml @ 100 mls/hr IVPB Q8HR KAMINI Rx# :[id number] propofoL 1,000 mg In 53.179 26.082 Empty Bag 1 bag @ Titrate IV .Q0M KAMINI Rx#: [id number] Blood Product 0 620 Rc As-1 Unit 0 310 [id number] Rc As-1 Unit 310 [id number] Albumin 250 Sodium Chloride 0.9% 1, 250 000 ml @ 20 mls/hr IV . Q24H KAMINI Rx#:[id number] Other 50 Output: Chest Tube Drainage 215 500 420 Lt Pleural 50 100 90 Mediastinal 135 240 260 Rt Pleural 30 160 70 Urine 1405 495 285 Estimated Blood Loss 1000 Other: Voiding Method Indwelling Catheter Indwelling Catheter Indwelling Catheter ABP, PAP, CO, CI - Last Documented Arterial Blood Pressure 106/48 Pulmonary Artery Pressure 35/13 Cardiac Output 3.2 Cardiac Index 2.1 - Labs CBC & Chem 7: 02/06/24 04:15 02/06/24 04:15 Labs: Abnormal Lab Results - Last 24 Hours (Table) 02/04/24 02/05/24 02/05/24 Range/Units 07:13 14:49 15:27 RBC 2.45 L (3.80-5.40) m/uL Hgb 7.3 L D (11.4-16.0) gm/dL Hct 22.5 L (34.0-46.0) % RDW 18.0 H (11.5-15.5) % Plt Count (150-450) k/uL Neutrophils # (1.3-7.7) k/uL Lymphocytes # 0.5 L (1.0-4.8) k/uL ABG pH 7.33 L (7.35-7.45) ABG pCO2 49 H (35-45) mmHg ABG pO2 >420 H (83-108) mmHg ABG HCO3 26 H (21-25) mmol/L ABG Total CO2 27 H (19-24) mmol/L ABG O2 Saturation 100.6 H (94-97) % Sodium (137-145) mmol/L Chloride (98-107) mmol/L Carbon Dioxide (22-30) mmol/L BUN (7-17) mg/dL Glucose (74-99) mg/dL POC Glucose (mg/dL) (70-110) mg/dL Calcium (8.4-10.2) mg/dL Total Bilirubin (0.2-1.3) mg/dL AST (14-36) U/L Alkaline Phosphatase (38-126) U/L Total Protein (6.3-8.2) g/dL Albumin (3.5-5.0) g/dL Crossmatch See Detail 02/05/24 02/05/24 02/05/24 Range/Units 16:06 17:08 18:00 RBC 1.94 L (3.80-5.40) m/uL Hgb 5.8 L* D (11.4-16.0) gm/dL Hct 18.0 L* (34.0-46.0) % RDW 18.4 H (11.5-15.5) % Plt Count (150-450) k/uL Neutrophils # (1.3-7.7) k/uL Lymphocytes # 0.3 L (1.0-4.8) k/uL ABG pH (7.35-7.45) ABG pCO2 (35-45) mmHg ABG pO2 (83-108) mmHg ABG HCO3 (21-25) mmol/L ABG Total CO2 (19-24) mmol/L ABG O2 Saturation (94-97) % Sodium (137-145) mmol/L Chloride (98-107) mmol/L Carbon Dioxide (22-30) mmol/L BUN (7-17) mg/dL Glucose (74-99) mg/dL POC Glucose (mg/dL) 126 H 129 H (70-110) mg/dL Calcium (8.4-10.2) mg/dL Total Bilirubin (0.2-1.3) mg/dL AST (14-36) U/L Alkaline Phosphatase (38-126) U/L Total Protein (6.3-8.2) g/dL Albumin (3.5-5.0) g/dL Crossmatch 02/05/24 02/05/24 02/05/24 Range/Units 18:04 19:00 19:55 RBC (3.80-5.40) m/uL Hgb (11.4-16.0) gm/dL Hct (34.0-46.0) % RDW (11.5-15.5) % Plt Count (150-450) k/uL Neutrophils # (1.3-7.7) k/uL Lymphocytes # (1.0-4.8) k/uL ABG pH (7.35-7.45) ABG pCO2 (35-45) mmHg ABG pO2 (83-108) mmHg ABG HCO3 (21-25) mmol/L ABG Total CO2 (19-24) mmol/L ABG O2 Saturation (94-97) % Sodium (137-145) mmol/L Chloride (98-107) mmol/L Carbon Dioxide (22-30) mmol/L BUN (7-17) mg/dL Glucose (74-99) mg/dL POC Glucose (mg/dL) 134 H 142 H 135 H (70-110) mg/dL Calcium (8.4-10.2) mg/dL Total Bilirubin (0.2-1.3) mg/dL AST (14-36) U/L Alkaline Phosphatase (38-126) U/L Total Protein (6.3-8.2) g/dL Albumin (3.5-5.0) g/dL Crossmatch 02/05/24 02/05/24 02/05/24 Range/Units 21:00 21:30 21:32 RBC 3.07 L (3.80-5.40) m/uL Hgb 9.5 L D (11.4-16.0) gm/dL Hct 28.2 L (34.0-46.0) % RDW 16.4 H (11.5-15.5) % Plt Count 141 L (150-450) k/uL Neutrophils # (1.3-7.7) k/uL Lymphocytes # 0.3 L (1.0-4.8) k/uL ABG pH (7.35-7.45) ABG pCO2 (35-45) mmHg ABG pO2 (83-108) mmHg ABG HCO3 (21-25) mmol/L ABG Total CO2 (19-24) mmol/L ABG O2 Saturation (94-97) % Sodium (137-145) mmol/L Chloride (98-107) mmol/L Carbon Dioxide (22-30) mmol/L BUN (7-17) mg/dL Glucose (74-99) mg/dL POC Glucose (mg/dL) 124 H 120 H (70-110) mg/dL Calcium (8.4-10.2) mg/dL Total Bilirubin (0.2-1.3) mg/dL AST (14-36) U/L Alkaline Phosphatase (38-126) U/L Total Protein (6.3-8.2) g/dL Albumin (3.5-5.0) g/dL Crossmatch 02/05/24 02/05/24 02/06/24 Range/Units 22:26 22:54 00:08 RBC (3.80-5.40) m/uL Hgb (11.4-16.0) gm/dL Hct (34.0-46.0) % RDW (11.5-15.5) % Plt Count (150-450) k/uL Neutrophils # (1.3-7.7) k/uL Lymphocytes # (1.0-4.8) k/uL ABG pH (7.35-7.45) ABG pCO2 (35-45) mmHg ABG pO2 124 H (83-108) mmHg ABG HCO3 (21-25) mmol/L ABG Total CO2 25 H (19-24) mmol/L ABG O2 Saturation 99.4 H (94-97) % Sodium (137-145) mmol/L Chloride (98-107) mmol/L Carbon Dioxide (22-30) mmol/L BUN (7-17) mg/dL Glucose (74-99) mg/dL POC Glucose (mg/dL) 123 H 112 H (70-110) mg/dL Calcium (8.4-10.2) mg/dL Total Bilirubin (0.2-1.3) mg/dL AST (14-36) U/L Alkaline Phosphatase (38-126) U/L Total Protein (6.3-8.2) g/dL Albumin (3.5-5.0) g/dL Crossmatch 02/06/24 02/06/24 02/06/24 Range/Units 01:11 04:15 04:15 RBC 3.16 L (3.80-5.40) m/uL Hgb 9.8 L (11.4-16.0) gm/dL Hct 28.9 L (34.0-46.0) % RDW 16.8 H (11.5-15.5) % Plt Count 129 L (150-450) k/uL Neutrophils # 7.8 H (1.3-7.7) k/uL Lymphocytes # 0.4 L (1.0-4.8) k/uL ABG pH (7.35-7.45) ABG pCO2 (35-45) mmHg ABG pO2 (83-108) mmHg ABG HCO3 (21-25) mmol/L ABG Total CO2 (19-24) mmol/L ABG O2 Saturation (94-97) % Sodium 135 L (137-145) mmol/L Chloride 110 H (98-107) mmol/L Carbon Dioxide 21 L (22-30) mmol/L BUN 21 H (7-17) mg/dL Glucose 100 H (74-99) mg/dL POC Glucose (mg/dL) 111 H (70-110) mg/dL Calcium 8.0 L (8.4-10.2) mg/dL Total Bilirubin 1.4 H (0.2-1.3) mg/dL AST 90 H (14-36) U/L Alkaline Phosphatase 32 L (38-126) U/L Total Protein 4.7 L (6.3-8.2) g/dL Albumin 3.2 L (3.5-5.0) g/dL Crossmatch 02/06/24 Range/Units 06:56 RBC (3.80-5.40) m/uL Hgb (11.4-16.0) gm/dL Hct (34.0-46.0) % RDW (11.5-15.5) % Plt Count (150-450) k/uL Neutrophils # (1.3-7.7) k/uL Lymphocytes # (1.0-4.8) k/uL ABG pH (7.35-7.45) ABG pCO2 (35-45) mmHg ABG pO2 (83-108) mmHg ABG HCO3 (21-25) mmol/L ABG Total CO2 (19-24) mmol/L ABG O2 Saturation (94-97) % Sodium (137-145) mmol/L Chloride (98-107) mmol/L Carbon Dioxide (22-30) mmol/L BUN (7-17) mg/dL Glucose (74-99) mg/dL POC Glucose (mg/dL) 119 H (70-110) mg/dL Calcium (8.4-10.2) mg/dL Total Bilirubin (0.2-1.3) mg/dL AST (14-36) U/L Alkaline Phosphatase (38-126) U/L Total Protein (6.3-8.2) g/dL Albumin (3.5-5.0) g/dL Crossmatch
[2024-02-06 17:17] LABS: Glucose,Whole Blood 107 mg/dL (70-110)
[2024-02-06 20:32] LABS: Glucose,Whole Blood 102 mg/dL (70-110)
[2024-02-07 04:27] LABS: Anisocytosis Slight; Basophils % (A) 0 %; Eosinophils # (A) 0.1 k/uL (0-0.7); Eosinophils % (A) 2 %; HCT 26.1 % (34.0-46.0); HGB 8.6 gm/dL (11.4-16.0); Hypochromasia Slight; Lymphocytes # (A) 0.9 k/uL (1.0-4.8); Lymphocytes % (A) 10 %; MCH 30.1 pg (25.0-35.0); MCHC 32.8 g/dL (31.0-37.0); Monocytes # (A) 0.7 k/uL (0-1.0); Monocytes % (A) 8 %; Neutrophils # (A) 7.3 k/uL (1.3-7.7); Neutrophils % (A) 80 %; Platelet Count 113 k/uL (150-450); RBC 2.84 m/uL (3.80-5.40); RDW 16.6 % (11.5-15.5); WBC 9.2 k/uL (3.8-10.6)
[2024-02-07 04:33] LABS: Ionized Calcium 4.9 mg/dL (4.5-5.3)
[2024-02-07 04:41] LABS: ALT 11 U/L (4-34); AST 68 U/L (14-36); African American GFR (CKD) >90 (>60 ml/min/1.73 sqM); Albumin 3.1 g/dL (3.5-5.0); Alkaline Phosphatase 38 U/L (38-126); Anion Gap 8 mmol/L; Blood Urea Nitrogen 13 mg/dL (7-17); Calcium 8.3 mg/dL (8.4-10.2); Carbon Dioxide 19 mmol/L (22-30); Chloride 107 mmol/L (98-107); Glucose 74 mg/dL (74-99); Non-African American GFR(CKD) >90 (>60 ml/min/1.73 sqM); Potassium 3.6 mmol/L (3.5-5.1); Sodium 134 mmol/L (137-145); Total Bilirubin 0.9 mg/dL (0.2-1.3); Total Protein 4.7 g/dL (6.3-8.2)
--- NOTE | 2024-02-07 06:43 | XR ---
EXAMINATION TYPE: XR chest 1V portable DATE OF EXAM: 02/07/2024 COMPARISON: 02/06/2024 HISTORY: Postop cardiac surgery TECHNIQUE: Single frontal view of the chest is obtained. FINDINGS: There is a [place]-Luis catheter unchanged in position. There are single right and left chest tubes and a mediastinal tube unchanged in position. There is no pneumothorax. There is a probable small right pleural effusion. There is mild elevation of left hemidiaphragm. IMPRESSION: Postoperative CABG changes with no interval change compared to previous.
[2024-02-07] MEDS: PANTOPRAZOLE 40 MG TABLET PO SCH (07:20)
[2024-02-07] MEDS: POTASSIUM CHLORIDE ER 20 MEQ TAB.ER PO SCH (07:20)
--- NOTE | 2024-02-07 07:24 | P.PN ---
Subjective Progress Note Date: 02/07/24 Principal diagnosis: Severe mitral regurgitation, moderate to severe tricuspid regurgitation, moderate aortic insufficiency per transthoracic echocardiogram, severe pulmonary hypertension, acute heart failure with preserved left ventricular systolic function. History of mild CAD, hyperlipidemia, COPD on home oxygen at night and PRN, recent pneumonia, GERD, previous tobacco dependence, occasional marijuana use, family history of coronary artery disease with mother from myocardial infarction in her 70s POD #2 mitral valve replacement with a 29 mm Hannah Mitris resilia bioprosthetic mitral valve, tricuspid valve repair with a 30 mm Hannah MC 3 ring, clip ligation of the left atrial appendage with a 35 mm AtriClip, intraoperative transesophageal echocardiogram performed by anesthesia Acute blood loss anemia, expected given hemodilution and cardiopulmonary bypass pump Third degree heart block, unexpected, currently 100% AV paced The patient was seen and examined this morning sitting up in recliner in the intensive care unit in no acute distress having just returned from walking out to the hallway. She is currently AV paced at 80 bpm, underlying rhythm remains complete heart block. Hemodynamically stable on IV Primacor. Does complain of postsurgical pain, denies shortness of breath although she states it is hard to take a deep breath in due to her chest tubes, the patient does have chronic pain and narcotic seeking behavior per her daughter. Right internal jugular [place]/Cordis, left brachial arterial line, mediastinal/right/left pleural chest tubes all main present. Chest x-ray, labs reviewed. She is on room air with oxygen saturation in the mid 90s, only able to achieve 500 mL on incentive spirometry. No other new concerns. Objective - Vital Signs Vital signs: Vital Signs Temp 99.9 F H 02/07/24 04:00 Pulse 80 02/07/24 07:00 Resp 20 02/07/24 07:00 BP 133/75 02/07/24 07:00 Pulse Ox 96 02/07/24 07:00 FiO2 40 02/05/24 22:05 Intake & Output 02/06/24 02/07/24 02/07/24 18:59 06:59 18:59 Intake Total 1239.904 788 39 Output Total 990 585 85 Balance 249.904 203 -46 Weight 61.1 kg 62.9 kg Intake: IV 948 538 39 Albumin Human 5% 250 ml 250 In Empty Bag 1 bag @ 250 mls/hr IVPB Q1HR PRN Rx#: [id number] NS for cardiac output 80 70 NS for pressure flush 108 108 9 Sodium Chloride 0.9% 1, 510 360 30 000 ml @ 20 mls/hr IV . Q24H [facility]INI Rx#:[id number] Intake, IV Titration 41.904 Amount Milrinone-D5w Pmx 20 mg 41.904 In Dextrose/Water 1 100ml .bag @ 0.2 MCG/KG/MIN 3. 24 mls/hr IV .Q24H [facility]I Rx #:[id number] Oral 250 Albumin 250 Sodium Chloride 0.9% 1, 250 000 ml @ 20 mls/hr IV . Q24H KAMINI Rx#:[id number] Output: Chest Tube Drainage 590 175 40 Lt Pleural 170 40 10 Mediastinal 320 110 10 Rt Pleural 100 25 20 Urine 400 410 45 Other: Voiding Method Indwelling Catheter Indwelling Catheter # Bowel Movements 1 ABP, PAP, CO, CI - Last Documented Arterial Blood Pressure 94/36 Pulmonary Artery Pressure 32/6 Cardiac Output 3.9 Cardiac Index 2.6 - Exam CONSTITUTIONAL: Appears comfortable, cooperative, no acute distress RESPIRATORY: Lungs sounds diminished bilaterally. Respirations even, nonlabored. Currently on room air with oxygen saturation 95%. Able to achieve 500 mL on incentive spirometry. Strong productive cough with minimal yellow sputum. CARDIOVASCULAR: S1, S2 present. Regular rate and rhythm, AV paced on telemetry, rate 80 bpm, underlying rhythm complete heart block. Sternum stable. Palpable peripheral pulses bilaterally. No edema present. No calf pain or tenderness noted. Heart hugger in place with patient demonstrating appropriate use. Antiembolism stockings, SCDs present. GASTROINTESTINAL: Abdomen soft, nontender, nondistended. Active bowel sounds present 4 quadrants. Tolerating minimal diet. Positive small bowel movement yesterday GENITOURINARY: Licona present draining clear, yellow urine. Output overnight 30-45 mL per hour, 810 mL in the last 24 hours INTEGUMENTARY: Skin is warm and dry with evidence of good perfusion. Anterior chest incision well approximated and covered with dry intact dressing NEUROLOGIC: Cranial nerves II through XII intact MUSKULOSKELETAL: Able to move all extremities, strength equal bilaterally PSYCHIATRIC: Alert and oriented to person place and time, appropriate affect, intact judgment and insight INVASIVE LINES AND TUBES: Mediastinal/left/right pleural chest tubes present and connected to wall suction, no air leaks present. Mediastinal tube with 60 mL serosanguineous drainage overnight, 450 mL in the last 24 hours. Left pleural chest tube with 20 mL serosanguineous drainage overnight, 250 mL in the last 24 hours. Right pleural chest tube with 15 mL serosanguineous drainage overnight, 100 mL in the last 24 hours. A/V epicardial pacemaker wires present, connected to generator, DDD mode with rate 80 bpm. Right internal jugular [place]/Cordis, right brachial arterial line present. Last CO/CI 4.6/3.1, PA 36/11, CVP 5. - Allied health notes Allied health notes reviewed: nursing - Labs CBC & Chem 7: 02/07/24 04:05 02/07/24 04:05 Labs: Abnormal Lab Results - Last 24 Hours (Table) 02/07/24 02/07/24 Range/Units 04:05 04:05 RBC 2.84 L (3.80-5.40) m/uL Hgb 8.6 L (11.4-16.0) gm/dL Hct 26.1 L (34.0-46.0) % RDW 16.6 H (11.5-15.5) % Plt Count 113 L (150-450) k/uL Lymphocytes # 0.9 L (1.0-4.8) k/uL Sodium 134 L (137-145) mmol/L Carbon Dioxide 19 L (22-30) mmol/L Calcium 8.3 L (8.4-10.2) mg/dL AST 68 H (14-36) U/L Total Protein 4.7 L (6.3-8.2) g/dL Albumin 3.1 L (3.5-5.0) g/dL - Imaging and Cardiology Chest x-ray: report reviewed, image reviewed Assessment and Plan Assessment: Severe mitral regurgitation, moderate to severe tricuspid regurgitation per ENRIQUE, status post mitral valve replacement, tricuspid valve repair Severe pulmonary hypertension Acute heart failure with preserved left ventricular systolic function, EF 55-60% Third-degree heart block History of mild CAD Hyperlipidemia, treated COPD on home oxygen at night and PRN Recent pneumonia still on Levaquin and IV steroids GERD Previous tobacco dependence, quit 1 month ago, [id number] history Occasional marijuana use Family history of coronary artery disease with mother from myocardial infarction in her 70s Plan: Continue to maximize medical therapy with aspirin, statin, Plavix. DC primacor. Hold beta jose due to underlying rhythm, if continues to be in third degree heart block patient will need permanent pacemaker, this was discussed with the daughter right after surgery by Dr. Cody Continue low dose ARB for afterload reduction Encourage incentive spirometry use 10 times every hour while awake. Bronchodilators per pulmonology Increase activity, ambulate as tolerated. PT/OT/cardiac rehab consulted Will monitor daily labs and x-rays. Electrolyte replacement per protocol. No further blood transfusion at this time. Will give 20 mg IVP lasix x1 today GI/DVT prophylaxis Pain control per current medication regimen Insulin management per internal medicine. Patient is not diabetic, preoperative hemoglobin A1c 5.1% Discontinue Mod[place], connect Cordis to continuous CVP monitoring Will discontinue pleural chest tubes, continue mediastinal chest tube for another 24 hours Discontinue Licona catheter after diuresis from lasix, may bladder scan and straight cath for >300 mL residual Continue to monitor strict accurate intake and output Daily weights Keep in ICU More recommendations to follow based on patient's progress
[2024-02-07] MEDS: FUROSEMIDE 10 MG/ML 2 ML VIAL IV ONE (08:58)
--- NOTE | 2024-02-07 11:20 | P.PN ---
Subjective Progress Note Date: 02/07/24 Patient is a 68-year-old female with past medical history significant for COPD, chronic oxygen dependence, chronic ongoing tobacco dependence, hyperlipidemia, hypertension, among other things. Patient reports over the past 1 month she has had 3 episodes of what she attributed to be panic attacks. She was acutely short of breath followed by anxiety. Of note, also had multiple episodes of syncope over the last few months. On December she was evaluated at [facility]. Reportedly underwent heart catheterization, I do not believe she received any percutaneous coronary intervention. She was found to have significant valvular heart disease on transthoracic echocardiogram, officia l results are not available to me at this time.. Reported affected valves include severe mitral regurgitation and at least moderate to severe aortic regurgitation. Yesterday, patient was transferred to [facility] for ENRIQUE and cardiothoracic surgery consult. Patient is currently in the intensive care unit room 263. She is sitting up in bed on 3 L/min nasal cannula. SpO2 is 100% at rest. Not in any respiratory distress. Reportedly normally wears 2 to 3 L nasal cannula at bedtime. She does have history of COPD and normally utilizes a combination of Trelegy maintenance inhaler and albuterol nebs. She still smokes approximately 1 pack/day. She is wheezing. Denies any infectious symptoms. No change in chronic cough, sputum production, chest pain, fever. We are waiting on chest x-ray. Currently on a combination of Pulmicort, DuoNebs, and IV Solu-Medrol. CBC from outside facility: WBC count 10, hemoglobin 9.9, hematocrit 30.8, platelets 202. BMP from outside facility includes a sodium 143, potassium 4.2, chloride 108, serum bicarb 32, BUN 15, creatinine 0.88, glucose 100. Troponins were mildly elevated. Hemodynamics are stable. On today's evaluation of 02/03/2024, I am seeing the patient for a follow-up. The patient is currently on room air oxygen. ENRIQUE was completed was found to have severe mitral regurgitation, in addition to reversal of flow in the pulmonary veins as well as dilated left atrium and moderate to severe tricuspid regurgitation. Her current cardiac rhythm remains sinus. The patient is hemodynamic stable on room air oxygen. The patient is on DuoNeb nebulized treatments [id number]. The patient is also on IV Solu-Medrol regarding COPD and a dose of 40 mg every 8 hours. Most recent chest x-ray from yesterday showed some mild pulm vascular congestion. Carotid Dopplers showed no critically abnormal stenosis involving the coronary arteries. The patient is awaiting recommendations from cardiothoracic surgery regarding valve surgery. The patient is edentulous. No new labs are available from today. Medications remain unchanged and the patient is currently on Lasix 40 mg p.o. daily the patient is also on metoprolol 75 mg p.o. daily. She is on Celexa and Wellbutrin regarding history of depression. On today's evaluation of 02/04/2024, the patient is being seen for a follow-up. Patient is doing well. She was transferred out of the intensive care unit yesterday. The plan is to proceed with cardiac surgery in the morning. The patient has severe mitral regurgitation and this has been confirmed by ENRIQUE. The patient is scheduled to undergo surgery with mitral valve repair/possible replacement in a.m. on 02/05/2024. The patient is currently on room air oxygen. No signs of any fluid overload. No cardiac arrhythmias. No chest pain. No significant shortness of breath. The white cell count is 12.5 with a hemoglobin 12.1 and a platelet count of 435. Normal coagulation profile. BUN is 36 with a creatinine of 1 and sodium is at 137 and serum bicarbonate 31. LDL cholesterol is at 223. 02/05/2024, the patient is being seen in the intensive care unit immediately after she arrived to the ICU. At this point in time, the patient is sedated and she is on propofol which is at 35 mcg/kg/min. She is well sedated and she is calm and comfortable. She is currently on assist-control mode of mechanical ve ntilation at a rate of 14, tidal volume of 350, FiO2 of 100% and a PEEP of 5. Initial blood gases showed a pH of 7.30 with a pCO2 of 49 and pO2 of 422. Based on that, the FiO2 has been dropped down to 50% and I increased the rate up to 20. Chest x-ray was noted and there is no evidence of any pneumothorax. ET tube is in a good location. New [place]-Luis catheter ideally needs to be advanced by a centimeter. The patient has right-sided chest tube, left-sided chest tube and a mediastinal chest tube. Output from the chest was of been noted. The patient has produced approximately 40 cc of bloody material from the mediastinal chest tube, 30 from the right and 10 from the left. No evidence of any air leak. Hemodynamically, the patient's systolic blood pressure is 97 with a diastolic pressure of 56. Cardiac output is at 2.5 with an index of 1.7. Cardiac rhythm is paced at a rate of 83 and the underlying cardiac rhythm is third-degree AV block. Pulmonary artery pressures of 31/19. SVR is elevated. Currently receiving IV albumin 5% a total of 250cc hide the patient will be also started on milrinone.Patient She may also require norepinephrine for blood pressure support. Urine output is adequate at this point in time. In terms of the blood work, the WBC count is at 7.9, hemoglobin 7.3 and a platelet count of 171. BUN is 26 with a creatinine of 0.77 and a sodium levels of 136. The current temperature is at 36. The patient is sitting external warming measures. Calcium level is at 7.3. 02/06/2024, the patient is being seen for a follow-up. The patient is postop day number 1 following mitral valve and tricuspid valve replacement. The patient was weaned off the mechanical ventilator the patient was extubated yesterday and the patient is currently on room air oxygen. she has no significant respiratory distress. The patient is using the incentive spirometer. Chest x-ray from today shows no evidence of any pneumothorax. Chest tubes are still in place. The mediastinal chest tube Produced 550 cc, left pleural produced 300 cc in the right chest tube was produced 250 cc surgery. The patient's output is serosanguineous/bloody. Hemodynamically, the patient underlying cardiac rhythm is stable third-degree AV block. The patient is being paced at a rate of 80. T he patient was started on a combination of milrinone and norepinephrine. Norepinephrine was discontinued the patient is currently on milrinone which is running at 0.2 mcg/kg/min. The most recent hemodynamic parameters show a cardiac output of 3.4 with an index of 2.3. PA pressures of 47/70. CVP is at 9. Noted the patient had received 2 units of packed RBC in the operating room. Hemoglobin stable at 9.8 with a white cell count of 9.1. Platelet count is at 129. BUN is 21 with a creatinine of 0.7. Electrolytes are all within normal limits. The patient is afebrile. Awake and alert and communicating. Beta- blockers are still on hold. 02/07/2024, the patient remains extubated, postop day #2, currently on room air oxygen. Cardiac index was up to 3. Milrinone is being weaned off and this will be discontinued. The right pleural and left lower chest tube will be also removed and the mediastinal chest tube will be kept in place. Hemodynamically stable. Producing adequate amount of urine output. Cardiac rhythm remains paced at the rate of 80. Underlying rhythm remains in third-degree AV block. The blood work from today shows a WBC of 9.2, hemoglobin of 8.6 and a platelet count of 113. Serum bicarb is at 19 but is from the 134 and a BUN of 13 with a creatinine of 0.6. The patient also received a dose of Lasix today given to her by the cardiothoracic team. She is off beta-blockers. Utilizing losartan 12.5 mg for blood pressure control. No other significant events. Awake and alert and communicating. No neurological deficits. Objective - Vital Signs Vital signs: Vital Signs Temp 99.9 F H 02/07/24 04:00 Pulse 80 02/07/24 07:00 Resp 20 02/07/24 07:00 BP 133/75 02/07/24 07:00 Pulse Ox 96 02/07/24 07:00 FiO2 40 02/05/24 22:05 Intake & Output 02/06/24 02/07/24 02/07/24 18:59 06:59 18:59 Intake Total 1239.904 788 39 Output Total 990 585 85 Balance 249.904 203 -46 Weight 61.1 kg 62.9 kg Intake: IV 948 538 39 Albumin Human 5% 250 ml 250 In Empty Bag 1 bag @ 250 mls/hr IVPB Q1HR PRN Rx#: [id number] NS for cardiac output 80 70 NS for pressure flush 108 108 9 Sodium Chloride 0.9% 1, 510 360 30 000 ml @ 20 mls/hr IV . Q24H [facility] Rx#:[id number] Intake, IV Titration 41.904 Amount Milrinone-D5w Pmx 20 mg 41.904 In Dextrose/Water 1 100ml .bag @ 0.2 MCG/KG/MIN 3. 24 mls/hr IV .Q24H [facility] Rx #:[id number] Oral 250 Albumin 250 Sodium Chloride 0.9% 1, 250 000 ml @ 20 mls/hr IV . Q24H [facility] Rx#:[id number] Output: Chest Tube Drainage 590 175 40 Lt Pleural 170 40 10 Mediastinal 320 110 10 Rt Pleural 100 25 20 Urine 400 410 45 Other: Voiding Method Indwelling Catheter Indwelling Catheter # Bowel Movements 1 ABP, PAP, CO, CI - Last Documented Arterial Blood Pressure 94/36 Pulmonary Artery Pressure 32/6 Cardiac Output 3.9 Cardiac Index 2.6 - Exam GENERAL EXAM: Alert, 68-year-old white female, awake and alert) on room air oxygen. HEAD: Normocephalic and atraumatic EYES: Normal reaction of pupils, equal size. NOSE: Clear with pink turbinates. THROAT: No erythema or exudates. NECK: No masses, no JVD. The patient has a right IJ New [place]-Luis catheter in place CHEST: No chest wall deformity. LUNGS: Equal air entry bilaterally and the patient has a mediastinal, right and left pleural chest tube CVS: S1 and S2 normal with harsh systolic murmur mainly heard over the left lung apex, regular rhythm. No other extra heart sounds, cardiac rhythmis rate of 80 ABDOMEN: No hepatosplenomegaly, active bowel sounds, no guarding or rigidity. SPINE: No scoliosis or deformity SKIN: No rashes CENTRAL NERVOUS SYSTEM: No focal deficits, tone is normal in all 4 extremities. Neurologically, the patient is awake and alert and the patient does not have any focal neurological deficit. Cranial nerves are essentially intact. EXTREMITIES: There is no peripheral edema, clubbing, or cyanosis. Peripheral pu lses are intact. - Labs CBC & Chem 7: 02/07/24 04:05 02/07/24 04:05 Labs: Abnormal Lab Results - Last 24 Hours (Table) 02/07/24 02/07/24 Range/Units 04:05 04:05 RBC 2.84 L (3.80-5.40) m/uL Hgb 8.6 L (11.4-16.0) gm/dL Hct 26.1 L (34.0-46.0) % RDW 16.6 H (11.5-15.5) % Plt Count 113 L (150-450) k/uL Lymphocytes # 0.9 L (1.0-4.8) k/uL Sodium 134 L (137-145) mmol/L Carbon Dioxide 19 L (22-30) mmol/L Calcium 8.3 L (8.4-10.2) mg/dL AST 68 H (14-36) U/L Total Protein 4.7 L (6.3-8.2) g/dL Albumin 3.1 L (3.5-5.0) g/dL Assessment and Plan Assessment: Status post mitral valve and 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 The patient is postop day # 2. Patient is requiring milrinone for inotrope and augmentation of the cardiac output. The patient is currently off norepinephrine. Hemodynamic parameters have been noted. Cardiac rhythm is still paced with a rate of 80. Postthoracotomy, currently extubated to room air oxygen and the patient has chest tubes in place. Output is minimal at this point in time. Third-degree AV block post valve surgery, currently paced at a rate of 80 Valvular heart disease, patient transferred from outside facility for cardiothoracic consult. ENRIQUE confirmed presence of severe mitral regurgitation, moderate-severe tricuspid regurgitation and preserved biventricular function, and the patient is scheduled to undergo mitral valve replacement/repair on 02/05/2024. COPD, recovered from acute COPD exacerbation Postoperative anemia, expected outcome of surgery, monitoring the hemoglobin, received 2 units of packed RBC intraoperatively. Anemia, normocytic normochromic Chronic ongoing tobacco dependence, 1 pack/day smoker with over [id number] history History of hyperlipidemia History of hypertension Chronic back pain and she is on Neurontin, and hydrocodone Depression Migraines Smoker Plan: Awake and alert without any focal neurological deficits Encouraged to use her incentive spirometer Monitor hemodynamic parameters Wean off milrinone is discontinued and the patient's cardiac index is above 3 Output from the chest tubes are minimal at this point in time and right pleural and left lower chest tube will be removed and the mediastinal chest will be kept in place Keep the patient paced at a rate of 80 Lasix 40 mg IV push x 1 Hemoglobin is stable Monitor hemodynamic parameters The patient will be kept in the intensive care unit. Will monitor hemodynamics. Will monitor progress. Will start weaning once she is more hemodynamically stable. Will continue to follow. Critical care evaluation that was done in the intensive care unit, more than 30- minute evaluation. Time with Patient: Greater than 30
--- NOTE | 2024-02-07 11:39 | PN ---
PROGRESS NOTE SUBJECTIVE: Rosmery Vazquez remains in ICU status post mitral valve and tricuspid valve surgery. She had chest x-ray shows post CABG surgery. No pneumothorax. She is walking in the hallway. She is on a pacemaker, 80 beats per minute. OBJECTIVE: VITAL SIGNS: Temperature is 96.9, pulse is 80, respiratory rate 18 to 20, blood pressure 133/75, O2 96, FiO2 40. GENERAL: No acute distress. HEART: S1 and S2. GI: Soft. INTEGUMENT: Warm and dry. NEUROLOGIC: Cranial nerves intact. PSYCH: Fair mood and affect. LABORATORY DATA: White count is 9.2, hemoglobin is 8.6, platelets 113. Sodium 134, potassium 3.6. ASSESSMENT: Severe mitral regurgitation, moderate to severe tricuspid regurgitation status post mitral valve and tricuspid repair, pulmonary hypertension, acute on chronic diastolic heart failure, third-degree heart block, mild chronic obstructive pulmonary disease, gastroesophageal reflux disease, nicotine addiction, coronary artery disease, history of current treatments, standard postop care. She appears to be improving. She had 2 units of blood after surgery. Currently, no more blood is needed. Pain control. Diabetes monitoring. Prognosis guarded. MMODL / IJN: [id number] /
[2024-02-07 12:00] LABS: Glucose,Whole Blood 101 mg/dL (70-110)
[2024-02-07] MEDS: ALBUMIN HUMAN 25% 50 ML in EMPTY BAG 1 BAG IVPB ONE (14:20)
[2024-02-07] MEDS: ALBUMIN HUMAN 5% 250 ML in EMPTY BAG 1 BAG IVPB STA (16:04)
[2024-02-07] MEDS: FERROUS SULFATE 325 MG TAB PO SCH (16:52)
[2024-02-07] MEDS: ASCORBIC ACID 500 MG TAB PO SCH (16:52)
--- NOTE | 2024-02-07 18:27 | P.PN ---
Subjective Progress Note Date: 02/07/24 02/06/2024 PA pressure 31/11, arterial line blood pressure 87 over 39 mmHg, heart rate 80 bpm patient is being paced continuously from epicardial pacers. Last CVP reading was around 6 Patient has [address], right IJ [place]-Luis catheter is in place. Cardiac index is measured at 2.1, cardiac output is being measured at 3.2 Patient has appropriate urine output around 20 cc/h Patient is getting albumin and milrinone drip. 0.2 mcg. Reduced from 0.3 mcg No concerns of arrhythmia on telemetry monitoring February 07, 2024 2 chest tubes are out, mediastinal tube still in place, [place]-Luis catheter is out Patient continues to be pacemaker dependent. On reducing the pacemaker pacing rate, it is noted that patient is having third-degree AV block. Underlying mechanism appears to be sinus, no concerns of any of the A-fib at this time On exam Patient is sitting in a chair, alert oriented, denies any acute distress Surgical scar is healing well in the central chest, no significant murmurs ap preciated on cardiac examination, regular pulses, Poor inspiratory effort with diminished breath sounds, no significant crackles or rhonchi audible No significant swelling in bilateral lower extremity, Chest tube in place Licona catheter in place Abdomen is nondistended, nontender appropriate bowel sounds Detailed neuroexam was not performed, alert oriented to time place and person ASSESSMENT: status post mitral valve replacement with 29 mm Hannah Resilia bioprosthetic mitral valve, tricuspid valve repair with ring, atrial clip ligation, Severe mitral regurgitation, moderate to severe tricuspid regurgitation, moderate aortic insufficiency, Residual moderate aortic sufficiency Complete heart block, pacemaker dependent h/o of COPD History of hypertension History of hyperlipidemia Nicotine dependence with recent smoking cessation, quit 1 month ago PLAN: Continue epicardial pacing at 80 beats minute. Patient will eventually need permanent pacemaker placement prior to the discharge. Would recommend getting it placed once the mediastinal tube is out. Encourage p.o. intake Encourage ambulation and sitting up in the chair Objective - Vital Signs Vital signs: Vital Signs Temp 98.3 F 02/07/24 16:00 Pulse 61 02/07/24 17:30 Resp 28 H 02/07/24 17:30 BP 104/52 02/07/24 16:30 Pulse Ox 97 02/07/24 17:30 FiO2 40 02/05/24 22:05 Intake & Output 02/06/24 02/07/24 02/07/24 18:59 06:59 18:59 Intake Total 1239.442 115 5901 Output Total 485 458 2102 Balance 249.904 203 516 Weight 61.1 kg 62.9 kg Intake: IV 948 538 661 Albumin Human 25% 50 ml 50 In Empty Bag 1 bag @ 50 mls/hr IVPB ONCE ONE Rx#: [id number] Albumin Human 5% 250 ml 250 250 In Empty Bag 1 bag @ 250 mls/hr IVPB Q1HR PRN Rx#: [id number] NS for cardiac output 80 70 10 NS for pressure flush 108 108 81 Sodium Chloride 0.9% 1, 510 360 270 000 ml @ 20 mls/hr IV . Q24H [facility] Rx#:[id number] Intake, IV Titration 41.904 Amount Milrinone-D5w Pmx 20 mg 41.904 In Dextrose/Water 1 100ml .bag @ 0.2 MCG/KG/MIN 3. 24 mls/hr IV .Q24H [facility] Rx #:[id number] Oral 250 1000 Albumin 250 Sodium Chloride 0.9% 1, 250 000 ml @ 20 mls/hr IV . Q24H [facility] Rx#:[id number] Output: Chest Tube Drainage 590 175 110 Lt Pleural 170 40 10 Mediastinal 320 110 80 Rt Pleural 100 25 20 Urine 205 881 5496 Other: Voiding Method Indwelling Catheter Indwelling Catheter Indwelling Catheter # Bowel Movements 1 1 ABP, PAP, CO, CI - Last Documented Arterial Blood Pressure 109/38 Pulmonary Artery Pressure 236/236 Cardiac Output 4.4 Cardiac Index 3 - Labs CBC & Chem 7: 02/07/24 04:05 02/07/24 04:05 Labs: Abnormal Lab Results - Last 24 Hours (Table) 02/07/24 02/07/24 Range/Units 04:05 04:05 RBC 2.84 L (3.80-5.40) m/uL Hgb 8.6 L (11.4-16.0) gm/dL Hct 26.1 L (34.0-46.0) % RDW 16.6 H (11.5-15.5) % Plt Count 113 L (150-450) k/uL Lymphocytes # 0.9 L (1.0-4.8) k/uL Sodium 134 L (137-145) mmol/L Carbon Dioxide 19 L (22-30) mmol/L Calcium 8.3 L (8.4-10.2) mg/dL AST 68 H (14-36) U/L Total Protein 4.7 L (6.3-8.2) g/dL Albumin 3.1 L (3.5-5.0) g/dL
[2024-02-07 20:21] LABS: Glucose,Whole Blood 108 mg/dL (70-110)
[2024-02-07] MEDS: ACETAMINOPHEN TAB 325 MG TAB PO PRN (20:28)
[2024-02-07] MEDS: ALBUMIN HUMAN 5% 250 ML in EMPTY BAG 1 BAG IVPB ONE (21:48)
[2024-02-08] MEDS: DOPamine DRIP 800 MG in DEXTROSE/WATER 1 250ML.BAG IV SCH ×2 (00:03→15:56)
[2024-02-08] MEDS: ALBUMIN HUMAN 5% 250 ML in EMPTY BAG 1 BAG IVPB STA (01:08)
[2024-02-08 05:04] LABS: Anisocytosis Slight; Basophils % (A) 0 %; Eosinophils # (A) 0.1 k/uL (0-0.7); Eosinophils % (A) 2 %; HCT 23.3 % (34.0-46.0); HGB 7.7 gm/dL (11.4-16.0); Lymphocytes % (A) 14 %; MCH 30.7 pg (25.0-35.0); MCHC 33.1 g/dL (31.0-37.0); MCV 92.9 fL (80.0-100.0); Mean Platelet Volume 9.7; Monocytes # (A) 0.5 k/uL (0-1.0); Monocytes % (A) 7 %; Neutrophils # (A) 5.7 k/uL (1.3-7.7); Neutrophils % (A) 76 %; Platelet Count 105 k/uL (150-450); RBC 2.51 m/uL (3.80-5.40); RDW 17.3 % (11.5-15.5); WBC 7.5 k/uL (3.8-10.6)
[2024-02-08 05:45] LABS: ALT 30 U/L (4-34); AST 70 U/L (14-36); African American GFR (CKD) >90 (>60 ml/min/1.73 sqM); Albumin 3.5 g/dL (3.5-5.0); Alkaline Phosphatase 78 U/L (38-126); Anion Gap 9 mmol/L; Blood Urea Nitrogen 19 mg/dL (7-17); Calcium 8.5 mg/dL (8.4-10.2); Carbon Dioxide 18 mmol/L (22-30); Chloride 107 mmol/L (98-107); Glucose 86 mg/dL (74-99); Non-African American GFR(CKD) 83 (>60 ml/min/1.73 sqM); Potassium 3.7 mmol/L (3.5-5.1); Sodium 134 mmol/L (137-145); Total Bilirubin 1.1 mg/dL (0.2-1.3); Total Protein 5.1 g/dL (6.3-8.2)
[2024-02-08] MEDS: POTASSIUM CHLORIDE ER 20 MEQ TAB.ER PO SCH (06:30)
[2024-02-08 06:38] LABS: Glucose,Whole Blood 91 mg/dL (70-110)
--- NOTE | 2024-02-08 07:27 | P.PN ---
Subjective Progress Note Date: 02/08/24 Principal diagnosis: Valvular heart disease This is a 68-year-old female patient was admitted to the hospital with heart failure and she was found to have severe mitral regurgitation and severe tricuspid regurgitation which she was diagnosed with severe symptomatic mitral regurgitation and underwent mitral valve replacement using bioprosthetic valve along with tricuspid valve repair. The surgery itself was uneventful. February 08, 2024 The patient was seen and evaluated this morning. Overall she seems to be stable beside she continues to be bradycardic with third-degree AV block and currently she has a ventricular pacer lead. Otherwise the pressure remains stable. The chest x-ray was reviewed and showed only small right pleural effusion. Her urine output has been marginal and giving that her pressure has been within normal limits and going to give the patient 20 mg of Lasix IV and continue monitor the urine output. Beside that avoid any AV harshil jose agents. The examination is remarkable for regular rhythm with a systolic murmur at the right upper sternal border with diminished breathing sounds bilaterally and no edema was noted in the lower extremities Assessment Severe symptomatic mitral regurgitation Status post mitral valve replacement and tricuspid valve repair Bradycardia requiring pacing Blood loss anemia appears to be stable Marginally low urine output Multiple comorbid conditions Plan Continue current medical regimen Avoid any AV harshil jose agents Continue monitor the heart rate She might need to undergo permanent pacemaker Give the patient 20 mg of Lasix IV Follow-up with the patient Objective - Vital Signs Vital signs: Vital Signs Temp 98.1 F 02/08/24 04:00 Pulse 60 02/08/24 07:00 Resp 18 02/08/24 07:00 BP 135/66 02/08/24 07:00 Pulse Ox 98 02/08/24 07:00 FiO2 40 02/05/24 22:05 Intake & Output 02/07/24 02/08/24 02/08/24 18:59 06:59 18:59 Intake Total 1661 812 26 Output Total 1155 330 15 Balance 506 482 11 Weight 62.9 kg Intake: IV 661 812 26 Albumin Human 25% 50 ml 50 In Empty Bag 1 bag @ 50 mls/hr IVPB ONCE ONE Rx#: [id number] Albumin Human 5% 250 ml 250 500 In Empty Bag 1 bag @ 250 mls/hr IVPB Q1HR PRN Rx#: [id number] NS for cardiac output 10 NS for pressure flush 81 72 6 Sodium Chloride 0.9% 1, 270 240 20 000 ml @ 20 mls/hr IV . Q24H [facility] Rx#:[id number] Oral 1000 Output: Chest Tube Drainage 110 100 0 Lt Pleural 10 Mediastinal 80 100 0 Rt Pleural 20 Urine 1045 230 15 Other: Voiding Method Indwelling Catheter Indwelling Catheter # Bowel Movements 1 ABP, PAP, CO, CI - Last Documented Arterial Blood Pressure 154/58 Pulmonary Artery Pressure 236/236 Cardiac Output 4.4 Cardiac Index 3 - Labs CBC & Chem 7: 02/08/24 04:44 02/08/24 04:44 Labs: Abnormal Lab Results - Last 24 Hours (Table) 02/08/24 02/08/24 Range/Units 04:44 04:44 RBC 2.51 L (3.80-5.40) m/uL Hgb 7.7 L (11.4-16.0) gm/dL Hct 23.3 L (34.0-46.0) % RDW 17.3 H (11.5-15.5) % Plt Count 105 L (150-450) k/uL Sodium 134 L (137-145) mmol/L Carbon Dioxide 18 L (22-30) mmol/L BUN 19 H (7-17) mg/dL AST 70 H (14-36) U/L Total Protein 5.1 L (6.3-8.2) g/dL
--- NOTE | 2024-02-08 08:16 | XR ---
EXAMINATION TYPE: XR chest 1V portable DATE OF EXAM: 02/08/2024 HISTORY: Post Op CABG COMPARISON: NONE TECHNIQUE: Single view of the chest is submitted. FINDINGS: Mediastinal drain remains in place. Bilateral chest tubes have been without sizable thorax. Small ple ural parenchymal changes at the lung bases. Post operative changes of CABG. No sizeable pneumothorax. Scattered Pleural-parenchymal opacities may reflect atelectasis. The heart is not enlarged. IMPRESSION: 1. Post operative changes of CABG.
[2024-02-08] MEDS: FUROSEMIDE 10 MG/ML 2 ML VIAL IV ONE (08:48)
[2024-02-08] MEDS: POTASSIUM CHLORIDE ER 10 MEQ TAB.ER.PRT PO STA (08:48)
[2024-02-08] MEDS: ONDANSETRON 4 MG/2 ML VIAL IVP PRN (08:58)
[2024-02-08 11:58] LABS: Glucose,Whole Blood 95 mg/dL (70-110)
[2024-02-08] MEDS ORDERED: ceFAZolin 1 GM in SODIUM CHLORIDE 0.9% IRRIG BTL 250 ML IRRIGATION PRN (13:46)
--- NOTE | 2024-02-08 13:50 | P.PN ---
Subjective Progress Note Date: 02/08/24 Principal diagnosis: Severe symptomatic mitral regurgitation, status post mitral valve replacement and tricuspid valve repair Patient is a 68-year-old female with past medical history significant for COPD, chronic oxygen dependence, chronic ongoing tobacco dependence, hyperlipidemia, hypertension, among other things. Patient reports over the past 1 month she has had 3 episodes of what she attributed to be panic attacks. She was acutely short of breath followed by anxiety. Of note, also had multiple episodes of syncope over the last few months. On December she was evaluated at [facility]. Reportedly underwent heart catheterization, I do not believe she received any percutaneous coronary intervention. She was found to have significant valvular heart disease on transthoracic echocardiogram, official results are not available to me at this time.. Reported affected valves include severe mitral regurgitation and at least moderate to severe aort ic regurgitation. Yesterday, patient was transferred to [facility] for ENRIQUE and cardiothoracic surgery consult. Patient is currently in the intensive care unit room 263. She is sitting up in bed on 3 L/min nasal cannula. SpO2 is 100% at rest. Not in any respiratory distress. Reportedly normally wears 2 to 3 L nasal cannula at bedtime. She does have history of COPD and normally utilizes a combination of Trelegy maintenance inhaler and albuterol nebs. She still smokes approximately 1 pack/day. She is wheezing. Denies any infectious symptoms. No change in chronic cough, sputum production, chest pain, fever. We are waiting on chest x-ray. Currently on a combination of Pulmicort, DuoNebs, and IV Solu-Medrol. CBC from outside facility: WBC count 10, hemoglobin 9.9, hematocrit 30.8, platelets 202. BMP from outside facility includes a sodium 143, potassium 4.2, chloride 108, serum bicarb 32, BUN 15, creatinine 0.88, glucose 100. Troponins were mildly elevated. Hemodynamics are stable. On today's evaluation of 02/03/2024, I am seeing the patient for a follow-up. The patient is currently on room air oxygen. ENRIQUE was completed was found to have severe mitral regurgitation, in addition to reversal of flow in the pulmonary veins as well as dilated left atrium and moderate to severe tricuspid regurgitation. Her current cardiac rhythm remains sinus. The patient is hemodynamic stable on room air oxygen. The patient is on DuoNeb nebulized treatments [id number]. The patient is also on IV Solu-Medrol regarding COPD and a dose of 40 mg every 8 hours. Most recent chest x-ray from yesterday showed some mild pulm vascular congestion. Carotid Dopplers showed no critically abnormal stenosis involving the coronary arteries. The patient is awaiting recommendations from cardiothoracic surgery regarding valve surgery. The patient is edentulous. No new labs are available from today. Medications remain unchanged and the patient is currently on Lasix 40 mg p.o. daily the patient is also on metoprolol 75 mg p.o. daily. She is on Celexa and Wellbutrin regarding history of depression. On today's evaluation of 02/04/2024, the patient is being seen for a follow-up. Patient is doing well. She was transferred [facility]. The plan is to proceed with cardiac surgery in the morning. The patient has severe mitral regurgitation and this has been confirmed by ENRIQUE. The patient is scheduled to undergo surgery with mitral valve repair/possible replacement in a.m. on 02/05/2024. The patient is currently on room air oxygen. No signs of any fluid overload. No cardiac arrhythmias. No chest pain. No significant justin rtness of breath. The white cell count is 12.5 with a hemoglobin 12.1 and a platelet count of 435. Normal coagulation profile. BUN is 36 with a creatinine of 1 and sodium is at 137 and serum bicarbonate 31. LDL cholesterol is at 223. 02/05/2024, the patient is being seen in the intensive care unit immediately after she arrived to the ICU. At this point in time, the patient is sedated and she is on propofol which is at 35 mcg/kg/min. She is well sedated and she is calm and comfortable. She is currently on assist-control mode of mechanical ventilation at a rate of 14, tidal volume of 350, FiO2 of 100% and a PEEP of 5. Initial blood gases showed a pH of 7.30 with a pCO2 of 49 and pO2 of 422. Based on that, the FiO2 has been dropped down to 50% and I increased the rate up to 20. Chest x-ray was noted and there is no evidence of any pneumothorax. ET tube is in a good location. Onancock-Luis catheter ideally needs to be advanced by a centimeter. The patient has right-sided chest tube, left-sided chest tube and a mediastinal chest tube. Output from the chest was of been noted. The patient has produced approximately 40 cc of bloody material from the mediastinal chest tube, 30 from the right and 10 from the left. No evidence of any air leak. Hemodynamically, the patient's systolic blood pressure is 97 with a diastolic pressure of 56. Cardiac output is at 2.5 with an index of 1.7. Cardiac rhythm is paced at a rate of 83 and the underlying cardiac rhythm is third-degree AV block. Pulmonary artery pressures of 31/19. SVR is elevated. Currently receiving IV albumin 5% a total of 250cc hide the patient will be also started on milrinone.Patient She may also require norepinephrine for blood pressure support. Urine output is adequate at this point in time. In terms of the blood work, the WBC count is at 7.9, hemoglobin 7.3 and a platelet count of 171. BUN is 26 with a creatinine of 0.77 and a sodium levels of 136. The current temperature is at 36. The patient is sitting external warming measures. Calcium level is at 7.3. 02/06/2024, the patient is being seen for a follow-up. The patient is postop day number 1 following mitral valve and tricuspid valve replacement. The patient was weaned off the mechanical ventilator the patient was extubated yesterday and the patient is currently on room air oxygen. she has no significant respiratory distress. The patient is using the incentive spirometer. Chest x-ray from today shows no evidence of any pneumothorax. Chest tubes are still in place. The mediastinal chest tube Produced 550 cc, left pleural produced 300 cc in the right chest tube was produced 250 cc surgery. The patient's output is serosan guineous/bloody. Hemodynamically, the patient underlying cardiac rhythm is stable third-degree AV block. The patient is being paced at a rate of 80. The patient was started on a combination of milrinone and norepinephrine. Norepinephrine was discontinued the patient is currently on milrinone which is running at 0.2 mcg/kg/min. The most recent hemodynamic parameters show a cardiac output of 3.4 with an index of 2.3. PA pressures of 47/70. CVP is at 9. Noted the patient had received 2 units of packed RBC in the operating room. Hemoglobin stable at 9.8 with a white cell count of 9.1. Platelet count is at 129. BUN is 21 with a creatinine of 0.7. Electrolytes are all within normal limits. The patient is afebrile. Awake and alert and communicating. Beta- blockers are still on hold. 02/07/2024, the patient remains extubated, postop day #2, currently on room air oxygen. Cardiac index was up to 3. Milrinone is being weaned off and this will be discontinued. The right pleural and left lower chest tube will be also removed and the mediastinal chest tube will be kept in place. Hemodynamically stable. Producing adequate amount of urine output. Cardiac rhythm remains paced at the rate of 80. Underlying rhythm remains in third-degree AV block. The blood work from today shows a WBC of 9.2, hemoglobin of 8.6 and a platelet count of 113. Serum bicarb is at 19 but is from the 134 and a BUN of 13 with a creatinine of 0.6. The patient also received a dose of Lasix today given to her by the cardiothoracic team. She is off beta-blockers. Utilizing losartan 12.5 mg for blood pressure control. No other significant events. Awake and alert and communicating. No neurological deficits. Patient was evaluated today on 02/08/2024, she is now postoperative day #3. Patient is status post mitral valve replacement and tricuspid valve repair, postoperative day #3. She is on room air, does not seem to be in any distress, she seems to be doing poorly with incentive spirometry. Hemodynamically stable, cardiac output 4.4 cardiac index is 3 patient received Lasix earlier today 20 mg IV push. Patient may need a permanent pacemaker implantation, and that is yet to be decided by cardiology. Continues to have chest tube in place. Evidence of leak, no evidence of pneumothorax on chest x-ray. Patient has an underlying rhythm of third-degree AV block, and again pacemaker placement is pending WBC count is 7.5 hemoglobin 7.7 electrolytes are normal renal profile is normal c hest x-ray showed mostly postoperative changes. Acute process for Objective - Vital Signs Vital signs: Vital Signs Temp 98 F 02/08/24 12:00 Pulse 60 02/08/24 13:00 Resp 18 02/08/24 13:00 BP 135/66 02/08/24 07:00 Pulse Ox 98 02/08/24 13:00 FiO2 40 02/05/24 22:05 Intake & Output 02/07/24 02/08/24 02/08/24 18:59 06:59 18:59 Intake Total 1661 812 233 Output Total 1155 330 540 Balance 506 482 -307 Weight 62.9 kg Intake: IV 661 812 113 Albumin Human 25% 50 ml 50 In Empty Bag 1 bag @ 50 mls/hr IVPB ONCE ONE Rx#: [id number] Albumin Human 5% 250 ml 250 500 In Empty Bag 1 bag @ 250 mls/hr IVPB Q1HR PRN Rx#: [id number] NS for cardiac output 10 NS for pressure flush 81 72 33 Sodium Chloride 0.9% 1, 270 240 80 000 ml @ 20 mls/hr IV . Q24H KAMINI Rx#:[id number] Oral 1000 120 Output: Chest Tube Drainage 110 100 10 Lt Pleural 10 Mediastinal 80 100 10 Rt Pleural 20 Urine 1045 230 530 Other: Voiding Method Indwelling Catheter Indwelling Catheter # Bowel Movements 1 1 ABP, PAP, CO, CI - Last Documented Arterial Blood Pressure 89/39 Pulmonary Artery Pressure 236/236 Cardiac Output 4.4 Cardiac Index 3 - Exam GENERAL EXAM: 68-year-old in no distress on room air HEAD: Normocephalic and atraumatic EYES: Normal reaction of pupils, equal size. NOSE: Clear with pink turbinates. THROAT: No erythema or exudates. NECK: No masses, no JVD. The patient has a right IJ Onancock-Luis catheter in place CHEST: No chest wall deformity. LUNGS: Clear bilaterally no rhonchi no wheezes. CVS: S1 and S2 normal with harsh systolic murmur mainly heard over the left lung apex, regular rhythm. No other extra heart sounds, cardiac rhythmis rate of 80 ABDOMEN: No hepatosplenomegaly, active bowel sounds, no guarding or rigidity. SKIN: No rashes CENTRAL NERVOUS SYSTEM: Alert and oriented x 3 no gross focal neurologic deficit Psychiatric: Normal mood affect and no mental status examination EXTREMITIES: No clubbing edema or cyanosis - Labs CBC & Chem 7: 02/08/24 04:44 02/08/24 04:44 Labs: Abnormal Lab Results - Last 24 Hours (Table) 02/08/24 02/08/24 Range/Units 04:44 04:44 RBC 2.51 L (3.80-5.40) m/uL Hgb 7.7 L (11.4-16.0) gm/dL Hct 23.3 L (34.0-46.0) % RDW 17.3 H (11.5-15.5) % Plt Count 105 L (150-450) k/uL Sodium 134 L (137-145) mmol/L Carbon Dioxide 18 L (22-30) mmol/L BUN 19 H (7-17) mg/dL AST 70 H (14-36) U/L Total Protein 5.1 L (6.3-8.2) g/dL Assessment and Plan Assessment: Impression: Status post mitral valve replacement and tricuspid valve repair the patient is postop day #3 Third-degree AV block post valve surgery, may require pacemaker implantation Valvular heart disease, patient transferred from outside facility for cardiothoracic consult. ENRIQUE confirmed presence of severe mitral regurgitation, moderate-severe tricuspid regurgitation and preserved biventricular function, and the patient is scheduled to undergo mitral valve replacement/repair on 02/05/2024. COPD, recovered from acute COPD exacerbation Postoperative anemia, acute blood loss anemia, expected Anemia, normocytic normochromic Chronic ongoing tobacco dependence, 1 pack/day smoker with over [id number] history History of hyperlipidemia History of hypertension Chronic back pain and she is on Neurontin, and hydrocodone Depression Migraines cephalgia. Smoker Recommendation: Continue to monitor in the ICU Continue incentive spirometry Continue maximal medical therapy Ambulation Patient is being considered for permanent pacemaker implantation because of her third-degree AV block Continue diuretics intermittently Continue to monitor daily labs and daily x-rays of the chest Will continue to follow Time with Patient: Less than 30
[2024-02-08] MEDS: SODIUM CHLORIDE 0.9% 1,000 ML IV SCH ×2 (14:23→15:25)
--- NOTE | 2024-02-08 14:55 | P.PN ---
Subjective Progress Note Date: 02/08/24 Principal diagnosis: Severe mitral regurgitation, moderate to severe tricuspid regurgitation, moderate aortic insufficiency per transthoracic echocardiogram, severe pulmonary hypertension, acute heart failure with preserved left ventricular systolic function. History of mild CAD, hyperlipidemia, COPD on home oxygen at night and PRN, recent pneumonia, GERD, previous tobacco dependence, occasional marijuana use, family history of coronary artery disease with mother from myocardial infarction in her 70s POD #3 mitral valve replacement with a 29 mm Hannah Mitris resilia bioprosthetic mitral valve, tricuspid valve repair with a 30 mm Hannah MC 3 ring, clip ligation of the left atrial appendage with a 35 mm AtriClip, intraoperative transesophageal echocardiogram performed by anesthesia Acute blood loss anemia, expected given hemodilution and cardiopulmonary bypass pump. Third degree heart block, unexpected, currently VVI paced. The patient was seen and examined in follow-up today February 08, 2024 at her bedside in the intensive care unit. Currently she is sitting up to the bedside chair, is awake, alert, oriented x 3 and is in no acute apparent distress. Denies any complaints of shortness of breath at this time, although is complaining of some surgical type pain to her chest tube insertion site, currently rating her pain 4 out of 10 on the pain scale. She remains hemodynamically stable and is currently on no inotropic or pressor support. Be ide telemetry is showing VVI paced rhythm heart rate 60 bpm, underlying heart rate is third-degree heart block. Right IJ cordis remains in place with current CVP pressure 12 mmHg. Oxygen saturations are 98% on room air and she is achieving 750 mL on her incentive spirometry with encouragement. Mediastinal chest tube remains in place to low continuous wall suction -20 cm H2O. No air leak is present. Draining thin serosanguineous drainage with 50 mL output in the last 8 hours and 130 mL output in the last 24 hours. Licona catheter remains in place for accurate I's and O's, marginal urine output in the last 8 hours with 145 mL. Laboratory and chest x-ray results were reviewed. Objective - Vital Signs Vital signs: Vital Signs Temp 98.1 F 02/08/24 04:00 Pulse 60 02/08/24 06:00 Resp 21 02/08/24 06:00 BP 111/70 02/08/24 05:00 Pulse Ox 99 02/08/24 06:00 FiO2 40 02/05/24 22:05 Intake & Output 02/07/24 02/08/24 02/08/24 18:59 06:59 18:59 Intake Total 1661 812 Output Total 1155 330 Balance 506 482 Weight 62.9 kg Intake: IV 661 812 Albumin Human 25% 50 ml 50 In Empty Bag 1 bag @ 50 mls/hr IVPB ONCE ONE Rx#: [id number] Albumin Human 5% 250 ml 250 500 In Empty Bag 1 bag @ 250 mls/hr IVPB Q1HR PRN Rx#: [id number] NS for cardiac output 10 NS for pressure flush 81 72 Sodium Chloride 0.9% 1, 270 240 000 ml @ 20 mls/hr IV . Q24H KAMINI Rx#:[id number] Oral 1000 Output: Chest Tube Drainage 110 100 Lt Pleural 10 Mediastinal 80 100 Rt Pleural 20 Urine 1045 230 Other: Voiding Method Indwelling Catheter Indwelling Catheter # Bowel Movements 1 ABP, PAP, CO, CI - Last Documented Arterial Blood Pressure 109/43 Pulmonary Artery Pressure 236/236 Cardiac Output 4.4 Cardiac Index 3 - Exam CONSTITUTIONAL: Appears comfortable, cooperative, no acute distress RESPIRATORY: Lungs sounds diminished to her bilateral bases. Respirations symmetrical, nonlabored. Currently on room air with oxygen saturation 98%. Able to achieve 750 mL on incentive spirometry. Strong productive cough with scant yellow sputum. CARDIOVASCULAR: S1, S2 present. Regular rate and rhythm, VVI paced on telemetry, rate 60 bpm, underlying rhythm third-degree heart block. Sternum stable. Palpable peripheral pulses bilaterally. No edema present. No calf pain or tenderness noted. Heart hugger in place with patient demonstrating appropriate use. Antiembolism stockings, SCDs present. GASTROINTESTINAL: Abdomen soft, nontender, nondistended. Active bowel sounds present 4 quadrants. Tolerating minimal diet. Small bowel movement yesterday February 07, 2024. Passing flatus. GENITOURINARY: Licona present draining clear, yellow urine. Output overnight 15-25 mL per hour, 1225 mL in the last 24 hours. INTEGUMENTARY: Skin is warm and dry, no clubbing or cyanosis is present. Midline sternal chest incision well approximated and covered with dry intact dressing. NEUROLOGIC: Cranial nerves II through XII intact. No focal deficits. MUSKULOSKELETAL: Able to move all extremities, strength equal bilaterally. PSYCHIATRIC: Alert and oriented to person place and time, appropriate affect, intact judgment and insight. INVASIVE LINES AND TUBES: Mediastinal chest tube present and connected to wall suction, no air leak present. Mediastinal tube with 50 mL serosanguineous drainage overnight, 130 mL in the last 24 hours. A/V epicardial pacemaker wires present, connected to generator, VVI mode with rate 60 bpm. Right internal jugular Cordis, right brachial arterial line present. Current CVP 12 mmHg. - Allied health notes Allied health notes reviewed: nursing - Labs CBC & Chem 7: 02/08/24 04:44 02/08/24 04:44 Labs: Abnormal Lab Results - Last 24 Hours (Table) 02/08/24 02/08/24 Range/Units 04:44 04:44 RBC 2.51 L (3.80-5.40) m/uL Hgb 7.7 L (11.4-16.0) gm/dL Hct 23.3 L (34.0-46.0) % RDW 17.3 H (11.5-15.5) % Plt Count 105 L (150-450) k/uL Sodium 134 L (137-145) mmol/L Carbon Dioxide 18 L (22-30) mmol/L BUN 19 H (7-17) mg/dL AST 70 H (14-36) U/L Total Protein 5.1 L (6.3-8.2) g/dL - Imaging and Cardiology Chest x-ray: report reviewed, image reviewed Assessment and Plan Assessment: Severe mitral regurgitation, moderate to severe tricuspid regurgitation per ENRIQUE, status post mitral valve replacement, tricuspid valve repair Severe pulmonary hypertension Acute heart failure with preserved left ventricular systolic function, EF 55-60% Third-degree heart block, currently VVI paced History of mild CAD Hyperlipidemia, treated COPD on home oxygen at night and PRN Recent pneumonia GERD Previous tobacco dependence, quit 1 month ago, [id number] history Occasional marijuana use Family history of coronary artery disease with mother from myocardial infarction in her 70s Plan: Continue to maximize medical therapy with aspirin, statin, Plavix. Hold beta jose due to underlying rhythm, the patient continues to be in third-degree heart block and will need to be scheduled for a permanent pacemaker. The patient has been made n.p.o. at this time. Continue low dose ARB for afterload reduction. Encourage incentive spirometry use 10 times every hour while awake. Bronchodilators per pulmonology. Increase activity, ambulate as tolerated. PT/OT/cardiac rehab following. Will monitor daily labs and chest x-rays. Electrolyte replacement per protocol. No further blood transfusion at this time. Will give 20 mg IVP lasix x1 today. GI/DVT prophylaxis. Pain control per current medication regimen. Insulin management per internal medicine. Patient is not diabetic, preoperative hemoglobin A1c 5.1%. Discontinue Cordis. Will discontinue mediastinal chest tubes. Discontinue Licona catheter after diuresis from lasix, may bladder scan and straight cath for >300 mL residual. Continue to monitor strict accurate intake and output. Daily weights. Keep in ICU. More recommendations to follow based on patient's clinical course. Time with Patient: Greater than 30
[2024-02-08] MEDS: HYDROcodone/APAP 10-325MG 1 EACH TAB PO SCH (15:55)
[2024-02-08 17:35] LABS: Glucose,Whole Blood 137 mg/dL (70-110)
[2024-02-08] MEDS: SODIUM FERRIC GLUCONAT-SUCROSE 125 MG in SODIUM CHLORIDE 0.9% 100 ML IVPB SCH (18:11)
--- NOTE | 2024-02-08 18:40 | PN ---
PROGRESS NOTE SUBJECTIVE: Rosmery Vazquez on day 3 of mitral valve repair with bypass, remains in ICU. OBJECTIVE: VITAL SIGNS: Blood pressure is low in the 92-93/60s to 40s, pulse 60s, temperature 98.2. EKG shows ST deviation, anterior ischemia, possible. Hemoglobin is down to 7.7, put her on some Venofer for anemia. Other labs look okay. CARDIOVASCULAR: S1 and S2. LUNGS: Clear. GI: Soft, nontender. HEMATOLOGY: Negative Homans. Chest tube in place. Evidence of leak. No evidence of pneumothorax. She has a pacemaker. She is status post mitral valve, tricuspid valve repair, COPD, anemia, history of nicotine addiction, hypertension, chronic back pain, depression. She is being considered for permanent pacemaker implantation third-degree AV block. Her labs, prognosis guarded. Wait for . MMODL / IJN: [id number] /
[2024-02-08 21:25] LABS: Glucose,Whole Blood 142 mg/dL (70-110)
[2024-02-09 06:33] LABS: Glucose,Whole Blood 111 mg/dL (70-110)
[2024-02-09] MEDS ORDERED: fentaNYL (PF) 50 MCG/ML 2 ML AMP ONE (07:23)
[2024-02-09] MEDS ORDERED: MIDAZOLAM 2 MG/2 ML VIAL ONE (07:23)
[2024-02-09] MEDS ORDERED: LIDOCAINE 1% INJ 10MG/ML (20 ML MDV) ONE ×2 (07:38→08:03)
[2024-02-09] MEDS: IV FLUID CONTINUATION 950 ML IV ONE (07:43)
[2024-02-09] MEDS: SODIUM CHLORIDE 0.9% 250 ML IV ONE (07:50)
[2024-02-09] MEDS: LIDOCAINE 1% INJ 10MG/ML (20 ML MDV) SQ ONE (07:56)
[2024-02-09] MEDS: IOPAMIDOL-370 100ML BTL INJ ONE (08:30)
[2024-02-09 08:41] LABS: Anisocytosis Slight; Basophils % (A) 0 %; Eosinophils # (A) 0.1 k/uL (0-0.7); Eosinophils % (A) 1 %; HCT 23.4 % (34.0-46.0); HGB 7.7 gm/dL (11.4-16.0); Lymphocytes # (A) 0.7 k/uL (1.0-4.8); Lymphocytes % (A) 6 %; MCH 31.1 pg (25.0-35.0); MCHC 32.9 g/dL (31.0-37.0); MCV 94.5 fL (80.0-100.0); Macrocytosis Slight; Mean Platelet Volume 8.9; Monocytes # (A) 0.5 k/uL (0-1.0); Monocytes % (A) 5 %; Neutrophils # (A) 8.8 k/uL (1.3-7.7); Neutrophils % (A) 86 %; RBC 2.47 m/uL (3.80-5.40); RDW 17.8 % (11.5-15.5); WBC 10.2 k/uL (3.8-10.6)
--- NOTE | 2024-02-09 08:43 | XR ---
EXAMINATION TYPE: XR chest 1V DATE OF EXAM: 02/09/2024 HISTORY: Shortness of breath. COMPARISON: 02/08/2024 TECHNIQUE: Single view of the chest is submitted. FINDINGS: Postoperative cardiac surgery changes. A mediastinal chest tube has been removed. Sternotomy wires, l eft atrial clip and cardiac valvular prosthesis in place. There is mild pulmonary venous congestion a nd small right-sided pleural effusion. No pneumothorax present. The heart is stable. Hilar and mediastinal structures are within normal limits. Degenerative changes are seen of the dorsal spine. IMPRESSION: 1. There is mild pulmonary venous congestion and small right-sided pleural effusion. No pneumothorax present.
[2024-02-09 08:44] LABS: Platelet Count 177 k/uL (150-450)
[2024-02-09 08:55] LABS: ALT 117 U/L (4-34); AST 129 U/L (14-36); African American GFR (CKD) 75 (>60 ml/min/1.73 sqM); Albumin 3.1 g/dL (3.5-5.0); Alkaline Phosphatase 149 U/L (38-126); Anion Gap 8 mmol/L; Blood Urea Nitrogen 25 mg/dL (7-17); Calcium 8.3 mg/dL (8.4-10.2); Carbon Dioxide 21 mmol/L (22-30); Chloride 109 mmol/L (98-107); Glucose 81 mg/dL (74-99); Magnesium 2.2 mg/dL (1.6-2.3); Non-African American GFR(CKD) 65 (>60 ml/min/1.73 sqM); Sodium 138 mmol/L (137-145); Total Bilirubin 0.8 mg/dL (0.2-1.3); Total Protein 4.7 g/dL (6.3-8.2)
[2024-02-09] MEDS ORDERED: ACETAMINOPHEN TAB 325 MG TAB PO PRN (09:13)
--- NOTE | 2024-02-09 09:19 | P.EPPROC ---
- EP Procedure Note Electrophysiology Procedure Note: Procedure Implantation of Micra AV device for complete heart block status post mitral valve repair Noncapture of the temporary epicardial atrial lead, intermittent capture and sensing of the ventricular epicardial lead implanted intraoperatively, no AV sensing/synchrony Indication for the procedure Bradycardia secondary to complete heart block, unreliable backup temporary epicardial pacing Early postoperative period Details Patient was brought to the EP lab in a fasting state. Written informed consent was obtained prior to the procedure. Anesthesia team in attendance. IV antibiotics administered Venous accesses was obtained, right and left femoral veins. 6F sheath in LFV. TVP via this sheath. The MICRA system and sheaths were placed in the right atrium The MICRA device loaded in the delivery system was passed through this sheath, across the tricuspid valve into the right ventricle and implanted in the RV septum IV dye injection performed in GERMAN and FERNANDEZ views to confirm good contact on the septum of the right ventricle Testing performed, Good sensing, capture thresholds and impedance obtained Micra device deployed. Tug Test performed. Stability confirmed. Good sensing and pacing thresholds and stable impedances reconfirmed The Micra device disengaged from the delivery system. Delivery system drawn Sheaths withdrawn Perclose closure plus Vascade closure of the RFV venous access TVP removed, vascade closure of LFV access site Patient tolerated the procedure well without any acute complications MICRA AV interrogation Paced R waves were sensed at 9.8 mV, pacing impedance 700 ohms, pacing threshold less than 0.5 V at 0.24 ms AV sensing protocol programmed
--- NOTE | 2024-02-09 09:30 | P.PN ---
Subjective Progress Note Date: 02/09/24 Principal diagnosis: Severe mitral regurgitation, moderate to severe tricuspid regurgitation, moderate aortic insufficiency per transthoracic echocardiogram, severe pulmonary hypertension, acute heart failure with preserved left ventricular systolic function. History of mild CAD, hyperlipidemia, COPD on home oxygen at night and PRN, recent pneumonia, GERD, previous tobacco dependence, occasional marijuana use, family history of coronary artery disease with mother from myocardial infarction in her 70s POD #4 mitral valve replacement with a 29 mm Hannah Mitris resilia bioprosthetic mitral valve, tricuspid valve repair with a 30 mm Hannah MC 3 ring, clip ligation of the left atrial appendage with a 35 mm AtriClip, intraoperative transesophageal echocardiogram performed by anesthesia Acute blood loss anemia, expected given hemodilution and cardiopulmonary bypass pump. Third degree heart block, unexpected, currently VVI paced. The patient was seen and examined in follow-up today February 09, 2024 at her bedside in the intensive care unit. She is currently laying in bed, is awake, alert, oriented x 3 and is in no acute apparent distress. [facility] staff is here at her bedside preparing her to go to the [facility] for a permanent pacemaker insertion. She has been NPO. The patient's sister is present at her bedside. The patient denies any complaints of pain or shortness of breath at this time. Bedside telemetry is showing third-degree heart block with a VVI pacer at 60 bpm. Oxygen saturations are 98% on room air and she is achieving 750 mL on her incentive spirometry with encouragement. She remains hemodynamically stable and is currently on no inotropic or pressor support. The patient was started on dopamine at 2 mcg/kg/min yesterday afternoon, and shortly after the dopamine drip was initiated the patient became nauseous and the dopa mine drip was subsequently discontinued. Mediastinal chest tube was discontinued yesterday without incident. Laboratory and chest x-ray results were reviewed. Objective - Vital Signs Vital signs: Vital Signs Temp 98.1 F 02/09/24 06:09 Pulse 60 02/09/24 07:00 Resp 20 02/09/24 07:00 BP 102/66 02/09/24 07:00 Pulse Ox 97 02/09/24 07:00 FiO2 40 02/05/24 22:05 Intake & Output 02/08/24 02/09/24 02/09/24 18:59 06:59 18:59 Intake Total 590.2 247.549 20 Output Total 890 325 0 Balance -299.8 -77.451 20 Weight 62.4 kg Intake: IV 113 220 20 NS for pressure flush 33 Sodium Chloride 0.9% 1, 80 220 20 000 ml @ 20 mls/hr IV . Q24H KAMINI Rx#:[id number] Intake, IV Titration 117.2 27.549 Amount DOPamine DRIP 800 mg In 7.2 7.549 Dextrose/Water 1 250ml. bag @ 2 MCG/KG/MIN 2.359 mls/hr IV .Q24H KAMINI Rx#: [id number] Sodium Chloride 0.9% 1, 110 20 000 ml @ 50 mls/hr IV . Q20H KAMINI Rx#:[id number] Oral 360 Output: Chest Tube Drainage 10 Mediastinal 10 Urine 880 300 0 Post Void Residual 25 Other: Voiding Method Indwelling Catheter Bedside Commode # Bowel Movements 1 ABP, PAP, CO, CI - Last Documented Arterial Blood Pressure 89/39 Pulmonary Artery Pressure 236/236 Cardiac Output 4.4 Cardiac Index 3 - Exam CONSTITUTIONAL: Appears comfortable, cooperative, no acute distress RESPIRATORY: Lungs sounds diminished to her bilateral bases. Respirations symmetrical, nonlabored. Currently on room air with oxygen saturation 98%. Able to achieve 750 mL on incentive spirometry. Strong cough. CARDIOVASCULAR: S1, S2 present. Regular rate and rhythm, VVI paced on telemetry, rate 60 bpm, underlying rhythm third-degree heart block heart rate in the 50s. Sternum stable. Palpable peripheral pulses bilaterally. No edema present. No calf pain or tenderness noted. Heart hugger in place with patient demonstrating appropriate use. Antiembolism stockings, SCDs present. GASTROINTESTINAL: Abdomen soft, nontender, nondistended. Active bowel sounds present 4 quadrants. Tolerating minimal diet. Bowel movement yesterday February 08, 2024. Passing flatus. GENITOURINARY: Continues to void. Urine output 200 mL in the last 8 hours. INTEGUMENTARY: Skin is warm and dry, no clubbing or cyanosis is present. Midline sternal chest incision well approximated and covered with dry intact dressing. NEUROLOGIC: Cranial nerves II through XII intact. No focal deficits. MUSKULOSKELETAL: Able to move all extremities, strength equal bilaterally. PSYCHIATRIC: Alert and oriented to person place and time, appropriate affect, intact judgment and insight. INVASIVE LINES AND TUBES: A/V epicardial pacemaker wires present, connected to generator, VVI mode with rate 60 bpm. - Allied health notes Allied health notes reviewed: nursing - Labs CBC & Chem 7: 02/09/24 08:24 02/09/24 08:24 Labs: Abnormal Lab Results - Last 24 Hours (Table) 02/08/24 02/08/24 02/09/24 Range/Units 17:33 21:23 06:31 POC Glucose (mg/dL) 137 H 142 H 111 H (70-110) mg/dL - Imaging and Cardiology Chest x-ray: report reviewed, image reviewed Assessment and Plan Assessment: Severe mitral regurgitation, moderate to severe tricuspid regurgitation per ENRIQUE, status post mitral valve replacement, tricuspid valve repair Severe pulmonary hypertension Acute heart failure with preserved left ventricular systolic function, EF 55-60% Third-degree heart block, currently VVI paced History of mild CAD Hyperlipidemia, treated COPD on home oxygen at night and PRN Recent pneumonia GERD Previous tobacco dependence, quit 1 month ago, [id number] history Occasional marijuana use Family history of coronary artery disease with mother from myocardial infarction in her 70s Plan: Continue to maximize medical therapy with aspirin, statin, Plavix. Hold beta jose due to underlying rhythm, the patient continues to be in third-degree heart block and is scheduled for a permanent pacemaker placement today by Dr. Mead. Continue low dose ARB for afterload reduction. Encourage incentive spirometry use 10 times every hour while awake. Bronchodilators per pulmonology. Increase activity, ambulate as tolerated. PT/OT/cardiac rehab following. Will monitor daily labs and chest x-rays. Electrolyte replacement per protocol. Will give 20 mg IVP lasix x1 today. GI/DVT prophylaxis. Pain control per current medication regimen. Insulin management per internal medicine. Patient is not diabetic, preoperative hemoglobin A1c 5.1%. Continue to monitor strict accurate intake and output. Daily weights. Keep in ICU for another 24 hours. Discharge planning is in place. More recommendations to follow based on patient's clinical course. Time with Patient: Greater than 30
--- NOTE | 2024-02-09 10:11 | XR ---
EXAMINATION TYPE: XR chest 1V portable DATE OF EXAM: 02/09/2024 10:01 AM COMPARISON: Chest radiographs from 02/09/2024 TECHNIQUE: XR chest 1V portable Portable AP radiograph of the chest. CLINICAL INDICATION:Female, 68 years old with history of post micra ppm implant; FINDINGS: Lungs/Pleura: No evidence of focal consolidation or pneumothorax. Blunting of the right costophrenic angle is present. Pulmonary vascularity: Unremarkable. Heart/mediastinum: Cardiomediastinal silhouette is enlarged and stable. Postoperative changes are pr esent in the mediastinum with prosthetic cardiac valve. Interval placement of a leadless pacemaker ov erlying the left heart. Left atrial appendage occlusion devices present. Musculoskeletal: No acute osseous pathology. Midline sternotomy wires are noted and stable. Partial v isualization of lumbar fusion hardware. IMPRESSION: 1. Postsurgical changes with leadless pacemaker overlying the left heart. 2. Cardiomegaly with small right pleural effusion redemonstrated. 3. Postsurgical changes of the heart redemonstrated.
[2024-02-09 11:32] LABS: Glucose,Whole Blood 84 mg/dL (70-110)
--- NOTE | 2024-02-09 13:37 | P.PN ---
Subjective Progress Note Date: 02/09/24 Principal diagnosis: Valvular heart disease This is a 68-year-old female patient was admitted to the hospital with heart failure and she was found to have severe mitral regurgitation and severe tricuspid regurgitation which she was diagnosed with severe symptomatic mitral regurgitation and underwent mitral valve replacement using bioprosthetic valve along with tricuspid valve repair. The surgery itself was uneventful. February 08, 2024 The patient was seen and evaluated this morning. Overall she seems to be stable beside she continues to be bradycardic with third-degree AV block and currently she has a ventricular pacer lead. Otherwise the pressure remains stable. The chest x-ray was reviewed and showed only small right pleural effusion. Her urine output has been marginal and giving that her pressure has been within normal limits and going to give the patient 20 mg of Lasix IV and continue monitor the urine output. Beside that avoid any AV harshil jose agents. The examination is remarkable for regular rhythm with a systolic murmur at the right upper sternal border with diminished breathing sounds bilaterally and no edema was noted in the lower extremities February 09, 2024 The patient was seen and evaluated this morning. She underwent earlier today leadless pacemaker implantation and that was uneventful. Her current heart rate has been in the 60s. She has been feeling nauseated. Beside that she has been experiencing heartburn and she was on PPI but I gave her additional 40 mg of Protonix IV. Otherwise she seems to be stable. The urine output has been marginal and she is in process of having Lasix. The physical examination is remarkable for stable vital signs with distant heart sounds and diminished breathing sounds bilaterally and no edema was noted in the lower extremities Assessment Severe symptomatic mitral regurgitation Status post mitral valve replacement and tricuspid valve repair Bradycardia requiring pacing Blood loss anemia appears to be stable Marginally low urine output Multiple comorbid conditions Plan Continue current medical regimen Avoid any AV harshil jose agents Continue monitor the heart rate She might need to undergo permanent pacemaker Give the patient 20 mg of Lasix IV Follow-up with the patient Objective - Vital Signs Vital signs: Vital Signs Temp 98.1 F 02/09/24 06:09 Pulse 60 02/09/24 07:00 Resp 20 02/09/24 07:00 BP 102/66 02/09/24 07:00 Pulse Ox 97 02/09/24 07:00 FiO2 40 02/05/24 22:05 Intake & Output 02/08/24 02/09/24 02/09/24 18:59 06:59 18:59 Intake Total 590.2 247.549 20 Output Total 890 325 0 Balance -299.8 -77.451 20 Weight 62.4 kg Intake: IV 113 220 20 NS for pressure flush 33 Sodium Chloride 0.9% 1, 80 220 20 000 ml @ 20 mls/hr IV . Q24H KAMINI Rx#:[id number] Intake, IV Titration 117.2 27.549 Amount DOPamine DRIP 800 mg In 7.2 7.549 Dextrose/Water 1 250ml. bag @ 2 MCG/KG/MIN 2.359 mls/hr IV .Q24H KAMINI Rx#: [id number] Sodium Chloride 0.9% 1, 110 20 000 ml @ 50 mls/hr IV . Q20H KAMINI Rx#:[id number] Oral 360 Output: Chest Tube Drainage 10 Mediastinal 10 Urine 880 300 0 Post Void Residual 25 Other: Voiding Method Indwelling Catheter Bedside Commode # Bowel Movements 1 ABP, PAP, CO, CI - Last Documented Arterial Blood Pressure 89/39 Pulmonary Artery Pressure 236/236 Cardiac Output 4.4 Cardiac Index 3 - Labs CBC & Chem 7: 02/09/24 08:24 02/09/24 08:24 Labs: Abnormal Lab Results - Last 24 Hours (Table) 02/08/24 02/08/24 02/09/24 Range/Units 17:33 21:23 06:31 POC Glucose (mg/dL) 137 H 142 H 111 H (70-110) mg/dL
[2024-02-09] MEDS: PANTOPRAZOLE 40 MG/10 ML VIAL IVP ONE (13:39)
--- NOTE | 2024-02-09 14:20 | P.PN ---
Subjective Progress Note Date: 02/09/24 Principal diagnosis: Severe symptomatic mitral regurgitation, status post mitral valve replacement and tricuspid valve repair Patient is a 68-year-old female with past medical history significant for COPD, chronic oxygen dependence, chronic ongoing tobacco dependence, hyperlipidemia, hypertension, among other things. Patient reports over the past 1 month she has had 3 episodes of what she attributed to be panic attacks. She was acutely short of breath followed by anxiety. Of note, also had multiple episodes of syncope over the last few months. On December she was evaluated at [facility]. Reportedly underwent heart catheterization, I do not believe she received any percutaneous coronary intervention. She was found to have significant valvular heart disease on transthoracic echocardiogram, official results are not available to me at this time.. Reported affected valves include severe mitral regurgitation and at least moderate to severe aort ic regurgitation. Yesterday, patient was transferred to [facility] for ENRIQUE and cardiothoracic surgery consult. Patient is currently in the intensive care unit room 263. She is sitting up in bed on 3 L/min nasal cannula. SpO2 is 100% at rest. Not in any respiratory distress. Reportedly normally wears 2 to 3 L nasal cannula at bedtime. She does have history of COPD and normally utilizes a combination of Trelegy maintenance inhaler and albuterol nebs. She still smokes approximately 1 pack/day. She is wheezing. Denies any infectious symptoms. No change in chronic cough, sputum production, chest pain, fever. We are waiting on chest x-ray. Currently on a combination of Pulmicort, DuoNebs, and IV Solu-Medrol. CBC from outside facility: WBC count 10, hemoglobin 9.9, hematocrit 30.8, platelets 202. BMP from outside facility includes a sodium 143, potassium 4.2, chloride 108, serum bicarb 32, BUN 15, creatinine 0.88, glucose 100. Troponins were mildly elevated. Hemodynamics are stable. On today's evaluation of 02/03/2024, I am seeing the patient for a follow-up. The patient is currently on room air oxygen. ENRIQUE was completed was found to have severe mitral regurgitation, in addition to reversal of flow in the pulmonary veins as well as dilated left atrium and moderate to severe tricuspid regurgitation. Her current cardiac rhythm remains sinus. The patient is hemodynamic stable on room air oxygen. The patient is on DuoNeb nebulized treatments [id number]. The patient is also on IV Solu-Medrol regarding COPD and a dose of 40 mg every 8 hours. Most recent chest x-ray from yesterday showed some mild pulm vascular congestion. Carotid Dopplers showed no critically abnormal stenosis involving the coronary arteries. The patient is awaiting recommendations from cardiothoracic surgery regarding valve surgery. The patient is edentulous. No new labs are available from today. Medications remain unchanged and the patient is currently on Lasix 40 mg p.o. daily the patient is also on metoprolol 75 mg p.o. daily. She is on Celexa and Wellbutrin regarding history of depression. On today's evaluation of 02/04/2024, the patient is being seen for a follow-up. Patient is doing well. She was transferred out of the intensive care unit [facility]. The plan is to proceed with cardiac surgery in the morning. The patient has severe mitral regurgitation and this has been confirmed by ENRIQUE. The patient is scheduled to undergo surgery with mitral valve repair/possible replacement in a.m. on 02/05/2024. The patient is currently on room air oxygen. No signs of any fluid overload. No cardiac arrhythmias. No chest pain. No significant justin rtness of breath. The white cell count is 12.5 with a hemoglobin 12.1 and a platelet count of 435. Normal coagulation profile. BUN is 36 with a creatinine of 1 and sodium is at 137 and serum bicarbonate 31. LDL cholesterol is at 223. 02/05/2024, the patient is being seen in the intensive care unit immediately after she arrived to the ICU. At this point in time, the patient is sedated and she is on propofol which is at 35 mcg/kg/min. She is well sedated and she is calm and comfortable. She is currently on assist-control mode of mechanical ventilation at a rate of 14, tidal volume of 350, FiO2 of 100% and a PEEP of 5. Initial blood gases showed a pH of 7.30 with a pCO2 of 49 and pO2 of 422. Based on that, the FiO2 has been dropped down to 50% and I increased the rate up to 20. Chest x-ray was noted and there is no evidence of any pneumothorax. ET tube is in a good location. Ashton-Luis catheter ideally needs to be advanced by a centimeter. The patient has right-sided chest tube, left-sided chest tube and a mediastinal chest tube. Output from the chest was of been noted. The patient has produced approximately 40 cc of bloody material from the mediastinal chest tube, 30 from the right and 10 from the left. No evidence of any air leak. Hemodynamically, the patient's systolic blood pressure is 97 with a diastolic pressure of 56. Cardiac output is at 2.5 with an index of 1.7. Cardiac rhythm is paced at a rate of 83 and the underlying cardiac rhythm is third-degree AV block. Pulmonary artery pressures of 31/19. SVR is elevated. Currently receiving IV albumin 5% a total of 250cc hide the patient will be also started on milrinone.Patient She may also require norepinephrine for blood pressure support. Urine output is adequate at this point in time. In terms of the blood work, the WBC count is at 7.9, hemoglobin 7.3 and a platelet count of 171. BUN is 26 with a creatinine of 0.77 and a sodium levels of 136. The current temperature is at 36. The patient is sitting external warming measures. Calcium level is at 7.3. 02/06/2024, the patient is being seen for a follow-up. The patient is postop day number 1 following mitral valve and tricuspid valve replacement. The patient was weaned off the mechanical ventilator the patient was extubated yesterday and the patient is currently on room air oxygen. she has no significant respiratory distress. The patient is using the incentive spirometer. Chest x-ray from today shows no evidence of any pneumothorax. Chest tubes are still in place. The mediastinal chest tube Produced 550 cc, left pleural produced 300 cc in the right chest tube was produced 250 cc surgery. The patient's output is serosan guineous/bloody. Hemodynamically, the patient underlying cardiac rhythm is stable third-degree AV block. The patient is being paced at a rate of 80. The patient was started on a combination of milrinone and norepinephrine. Norepinephrine was discontinued the patient is currently on milrinone which is running at 0.2 mcg/kg/min. The most recent hemodynamic parameters show a cardiac output of 3.4 with an index of 2.3. PA pressures of 47/70. CVP is at 9. Noted the patient had received 2 units of packed RBC in the operating room. Hemoglobin stable at 9.8 with a white cell count of 9.1. Platelet count is at 129. BUN is 21 with a creatinine of 0.7. Electrolytes are all within normal limits. The patient is afebrile. Awake and alert and communicating. Beta- blockers are still on hold. 02/07/2024, the patient remains extubated, postop day #2, currently on room air oxygen. Cardiac index was up to 3. Milrinone is being weaned off and this will be discontinued. The right pleural and left lower chest tube will be also removed and the mediastinal chest tube will be kept in place. Hemodynamically stable. Producing adequate amount of urine output. Cardiac rhythm remains paced at the rate of 80. Underlying rhythm remains in third-degree AV block. The blood work from today shows a WBC of 9.2, hemoglobin of 8.6 and a platelet count of 113. Serum bicarb is at 19 but is from the 134 and a BUN of 13 with a creatinine of 0.6. The patient also received a dose of Lasix today given to her by the cardiothoracic team. She is off beta-blockers. Utilizing losartan 12.5 mg for blood pressure control. No other significant events. Awake and alert and communicating. No neurological deficits. Patient was evaluated today on 02/08/2024, she is now postoperative day #3. Patient is status post mitral valve replacement and tricuspid valve repair, postoperative day #3. She is on room air, does not seem to be in any distress, she seems to be doing poorly with incentive spirometry. Hemodynamically stable, cardiac output 4.4 cardiac index is 3 patient received Lasix earlier today 20 mg IV push. Patient may need a permanent pacemaker implantation, and that is yet to be decided by cardiology. Continues to have chest tube in place. Evidence of leak, no evidence of pneumothorax on chest x-ray. Patient has an underlying rhythm of third-degree AV block, and again pacemaker placement is pending WBC count is 7.5 hemoglobin 7.7 electrolytes are normal renal profile is normal c hest x-ray showed mostly postoperative changes. No acute process Patient was evaluated today 02/09/2024, patient is in the ICU, she is on room air, she is now postoperative day #4. Mitral valve replacement and tricuspid valve repair, patient is not in any distress, she just came back from the [facility], she had implantation of Micra AV device for complete heart block post mitral valve repair. Patient has no active pulmonary symptoms, no cough no wheezing no shortness of breath no chest pain. Chest x-ray is reassuring. Labs are basically unremarkable hemoglobin is 7.7 otherwise the rest of the labs are basically normal patient is hemodynamically stable, not requiring any pressors or any inotropes. She is achieving 750 mL on her incentive spirometry. Her mediastinal chest tube was discontinued yesterday. Objective - Vital Signs Vital signs: Vital Signs Temp 98 F 02/09/24 12:00 Pulse 60 02/09/24 14:00 Resp 22 02/09/24 14:00 BP 132/67 02/09/24 14:00 Pulse Ox 96 02/09/24 14:00 FiO2 40 02/05/24 22:05 Intake & Output 02/08/24 02/09/24 02/09/24 18:59 06:59 18:59 Intake Total 590.2 777.360 1121 Output Total 890 325 0 Balance -299.8 -77.451 1112 Weight 62.4 kg 62.4 kg Intake: IV 113 220 792 NS for pressure flush 33 Sodium Chloride 0.9% 1, 80 220 40 000 ml @ 20 mls/hr IV . Q24H KAMINI Rx#:[id number] Intake, IV Titration 117.2 27.549 100 Amount DOPamine DRIP 800 mg In 7.2 7.549 Dextrose/Water 1 250ml. bag @ 2 MCG/KG/MIN 2.359 mls/hr IV .Q24H KAMINI Rx#: [id number] Sodium Chloride 0.9% 1, 110 20 000 ml @ 50 mls/hr IV . Q20H KAMINI Rx#:[id number] Sodium Ferric Gluconat- 100 Sucrose 125 mg In Sodium Chloride 0.9% 100 ml @ 100 mls/hr IVPB DAILY KAMINI Rx#:[id number] Oral 360 220 Output: Chest Tube Drainage 10 Mediastinal 10 Urine 880 300 0 Post Void Residual 25 Other: Voiding Method Indwelling Catheter Bedside Commode # Bowel Movements 1 ABP, PAP, CO, CI - Last Documented Arterial Blood Pressure 89/39 Pulmonary Artery Pressure 236/236 Cardiac Output 4.4 Cardiac Index 3 - Exam GENERAL EXAM: 68-year-old in no distress on room air HEAD: Normocephalic and atraumatic EYES: Normal reaction of pupils, equal size. NOSE: Clear with pink turbinates. THROAT: No erythema or exudates. NECK: No masses, no JVD. CHEST: No chest wall deformity. LUNGS: Clear bilaterally no rhonchi no wheezes. CVS: S1 and S2 normal with harsh systolic murmur mainly heard over the left lung apex, regular rhythm. No other extra heart sounds, cardiac rhythmis rate of 80 ABDOMEN: No hepatosplenomegaly, active bowel sounds, no guarding or rigidity. SKIN: No rashes CENTRAL NERVOUS SYSTEM: Alert and oriented x 3 no gross focal neurologic deficit Psychiatric: Normal mood affect and no mental status examination EXTREMITIES: No clubbing edema or cyanosis - Labs CBC & Chem 7: 02/09/24 08:24 02/09/24 08:24 Labs: Abnormal Lab Results - Last 24 Hours (Table) 02/08/24 02/08/24 02/09/24 Range/Units 17:33 21:23 06:31 RBC (3.80-5.40) m/uL Hgb (11.4-16.0) gm/dL Hct (34.0-46.0) % RDW (11.5-15.5) % Neutrophils # (1.3-7.7) k/uL Lymphocytes # (1.0-4.8) k/uL Chloride (98-107) mmol/L Carbon Dioxide (22-30) mmol/L BUN (7-17) mg/dL POC Glucose (mg/dL) 137 H 142 H 111 H (70-110) mg/dL Calcium (8.4-10.2) mg/dL AST (14-36) U/L ALT (4-34) U/L Alkaline Phosphatase (38-126) U/L Total Protein (6.3-8.2) g/dL Albumin (3.5-5.0) g/dL 02/09/24 02/09/24 Range/Units 08:24 08:24 RBC 2.47 L (3.80-5.40) m/uL Hgb 7.7 L (11.4-16.0) gm/dL Hct 23.4 L (34.0-46.0) % RDW 17.8 H (11.5-15.5) % Neutrophils # 8.8 H (1.3-7.7) k/uL Lymphocytes # 0.7 L (1.0-4.8) k/uL Chloride 109 H (98-107) mmol/L Carbon Dioxide 21 L (22-30) mmol/L BUN 25 H (7-17) mg/dL POC Glucose (mg/dL) (70-110) mg/dL Calcium 8.3 L (8.4-10.2) mg/dL AST 129 H (14-36) U/L ALT 117 H (4-34) U/L Alkaline Phosphatase 149 H (38-126) U/L Total Protein 4.7 L (6.3-8.2) g/dL Albumin 3.1 L (3.5-5.0) g/dL Assessment and Plan Assessment: Impression: Status post mitral valve replacement and tricuspid valve repair the patient is postop day #4 Status post implantation of Micra AV device for complete heart block postoperative day #0 COPD, recovered from acute COPD exacerbation Postoperative anemia, acute blood loss anemia, expected Anemia, normocytic normochromic Chronic ongoing tobacco dependence, 1 pack/day smoker with over [id number] history History of hyperlipidemia History of hypertension Chronic back pain and she is on Neurontin, and hydrocodone Depression Migraines cephalgia. Smoker Recommendation: Continue to monitor in the ICU Continue incentive spirometry Continue maximal medical therapy Ambulation Continue diuretics intermittently Continue to monitor daily labs and daily x-rays of the chest Will continue to follow Time with Patient: Less than 30
[2024-02-09] MEDS: FUROSEMIDE 10 MG/ML 2 ML VIAL IV ONE (15:05)
[2024-02-09] MEDS: CALCIUM CARBONATE 500 MG CHEWABLE PO PRN (15:05)
[2024-02-09] MEDS: POTASSIUM CHLORIDE ER 10 MEQ TAB.ER.PRT PO STA (15:05)
[2024-02-09 16:38] LABS: Glucose,Whole Blood 90 mg/dL (70-110)
[2024-02-09] MEDS: PANTOPRAZOLE 40 MG TABLET PO SCH (17:28)
[2024-02-09 20:02] LABS: Glucose,Whole Blood 75 mg/dL (70-110)
--- NOTE | 2024-02-09 20:34 | PN ---
PROGRESS NOTE A 68-year-old white female, status post cardiac pacemaker today. Hemoglobin is 7.7, white count is 10.2. Sodium 138, potassium 4.0, sugars in the 100s. GFR 65. Cardiovascular has S1 and S2. She is much improved today. She can get up and ambulate. Blood pressure is 126/76, temp 97.9, O2 99. Anemia secondary to surgery. If possible, continue with the Venofer infusion daily. Possibly some iron pills. Continue current home medications. The patient is much better and improving daily. Bandage changes continue. Prognosis guarded. The patient appears to be getting better daily. Please see further orders. Protonix 40 b.i.d. was given for severe heartburn that she has had over the last 2 days, much better. Prognosis guarded. MMODL / IJN: [id number] /
[2024-02-10 06:26] LABS: Anisocytosis Slight; HCT 23.3 % (34.0-46.0); HGB 7.2 gm/dL (11.4-16.0); Hypochromasia Marked; MCH 30.1 pg (25.0-35.0); MCHC 30.8 g/dL (31.0-37.0); MCV 97.8 fL (80.0-100.0); Macrocytosis Slight; Mean Platelet Volume 9.5; Platelet Count 214 k/uL (150-450); RBC 2.38 m/uL (3.80-5.40); RDW 17.5 % (11.5-15.5); WBC 10.9 k/uL (3.8-10.6)
[2024-02-10 06:59] LABS: ALT 137 U/L (4-34); AST 140 U/L (14-36); African American GFR (CKD) 80 (>60 ml/min/1.73 sqM); Albumin 3.1 g/dL (3.5-5.0); Alkaline Phosphatase 138 U/L (38-126); Anion Gap 9 mmol/L; Blood Urea Nitrogen 24 mg/dL (7-17); Calcium 8.5 mg/dL (8.4-10.2); Carbon Dioxide 19 mmol/L (22-30); Chloride 108 mmol/L (98-107); Glucose 80 mg/dL (74-99); Non-African American GFR(CKD) 69 (>60 ml/min/1.73 sqM); Potassium 3.9 mmol/L (3.5-5.1); Sodium 136 mmol/L (137-145); Total Bilirubin 0.9 mg/dL (0.2-1.3); Total Protein 4.9 g/dL (6.3-8.2)
[2024-02-10 07:08] LABS: Glucose,Whole Blood 92 mg/dL (70-110)
[2024-02-10] MEDS ORDERED: Potassium Replacement Protocol 1 EACH MISC MISCELLANE PRN (07:08)
[2024-02-10] MEDS: CALCIUM CARBONATE 500 MG CHEWABLE PO PRN (07:36)
--- NOTE | 2024-02-10 07:45 | P.PN ---
Subjective Progress Note Date: 02/10/24 Principal diagnosis: Valvular heart disease This is a 68-year-old female patient was admitted to the hospital with heart failure and she was found to have severe mitral regurgitation and severe tricuspid regurgitation which she was diagnosed with severe symptomatic mitral regurgitation and underwent mitral valve replacement using bioprosthetic valve along with tricuspid valve repair. The surgery itself was uneventful. February 08, 2024 The patient was seen and evaluated this morning. Overall she seems to be stable beside she continues to be bradycardic with third-degree AV block and currently she has a ventricular pacer lead. Otherwise the pressure remains stable. The chest x-ray was reviewed and showed only small right pleural effusion. Her urine output has been marginal and giving that her pressure has been within normal limits and going to give the patient 20 mg of Lasix IV and continue monitor the urine output. Beside that avoid any AV harshil jose agents. The examination is remarkable for regular rhythm with a systolic murmur at the right upper sternal border with diminished breathing sounds bilaterally and no edema was noted in the lower extremities February 09, 2024 The patient was seen and evaluated this morning. She underwent earlier today leadless pacemaker implantation and that was uneventful. Her current heart rate has been in the 60s. She has been feeling nauseated. Beside that she has been experiencing heartburn and she was on PPI but I gave her additional 40 mg of Protonix IV. Otherwise she seems to be stable. The urine output has been marginal and she is in process of having Lasix. The physical examination is remarkable for stable vital signs with distant heart sounds and diminished breathing sounds bilaterally and no edema was noted in the lower extremities February 10, 2024 The patient was seen and evaluated this morning. She seems to be stable beside the heartburn which now she stated that it is better with Tums. I am going to obtain an echocardiogram limited to assess for any pericardial effusion. Ot herwise pressure remains soft but stable. Urine output has been normal as well with hemoglobin is stable with the physical examination is remarkable for regular rhythm with diminished breathing sounds bilaterally and no edema was noted in the lower extremities Assessment Severe symptomatic mitral regurgitation Status post mitral valve replacement and tricuspid valve repair Bradycardia requiring pacing Blood loss anemia appears to be stable Marginally low urine output Multiple comorbid conditions Plan Continue current medical regimen Avoid any AV harshil jose agents Continue monitor the heart rate Objective - Vital Signs Vital signs: Vital Signs Temp 97.9 F 02/10/24 04:00 Pulse 60 02/10/24 04:00 Resp 15 02/10/24 04:00 BP 96/52 02/10/24 04:00 Pulse Ox 98 02/10/24 04:00 FiO2 40 02/05/24 22:05 Intake & Output 02/09/24 02/10/24 02/10/24 18:59 06:59 18:59 Intake Total 1452 200 Output Total 800 450 Balance 652 -250 Weight 62.4 kg 63.5 kg Intake: IV 792 Sodium Chloride 0.9% 1, 40 000 ml @ 20 mls/hr IV . Q24H KAMINI Rx#:[id number] Intake, IV Titration 100 Amount Sodium Ferric Gluconat- 100 Sucrose 125 mg In Sodium Chloride 0.9% 100 ml @ 100 mls/hr IVPB DAILY KAMINI Rx#:[id number] Oral 560 200 Output: Urine 800 450 Other: Voiding Method Bedside Commode Bedside Commode ABP, PAP, CO, CI - Last Documented Arterial Blood Pressure 89/39 Pulmonary Artery Pressure 236/236 Cardiac Output 4.4 Cardiac Index 3 - Labs CBC & Chem 7: 02/10/24 06:16 02/10/24 06:16 Labs: Abnormal Lab Results - Last 24 Hours (Table) 02/09/24 02/09/24 02/10/24 Range/Units 08:24 08:24 06:16 WBC 10.9 H (3.8-10.6) k/uL RBC 2.47 L 2.38 L (3.80-5.40) m/uL Hgb 7.7 L 7.2 L (11.4-16.0) gm/dL Hct 23.4 L 23.3 L (34.0-46.0) % MCHC 30.8 L (31.0-37.0) g/dL RDW 17.8 H 17.5 H (11.5-15.5) % Neutrophils # 8.8 H (1.3-7.7) k/uL Lymphocytes # 0.7 L (1.0-4.8) k/uL Sodium (137-145) mmol/L Chloride 109 H (98-107) mmol/L Carbon Dioxide 21 L (22-30) mmol/L BUN 25 H (7-17) mg/dL Calcium 8.3 L (8.4-10.2) mg/dL AST 129 H (14-36) U/L ALT 117 H (4-34) U/L Alkaline Phosphatase 149 H (38-126) U/L Total Protein 4.7 L (6.3-8.2) g/dL Albumin 3.1 L (3.5-5.0) g/dL 02/10/24 Range/Units 06:16 WBC (3.8-10.6) k/uL RBC (3.80-5.40) m/uL Hgb (11.4-16.0) gm/dL Hct (34.0-46.0) % MCHC (31.0-37.0) g/dL RDW (11.5-15.5) % Neutrophils # (1.3-7.7) k/uL Lymphocytes # (1.0-4.8) k/uL Sodium 136 L (137-145) mmol/L Chloride 108 H (98-107) mmol/L Carbon Dioxide 19 L (22-30) mmol/L BUN 24 H (7-17) mg/dL Calcium (8.4-10.2) mg/dL AST 140 H (14-36) U/L ALT 137 H (4-34) U/L Alkaline Phosphatase 138 H (38-126) U/L Total Protein 4.9 L (6.3-8.2) g/dL Albumin 3.1 L (3.5-5.0) g/dL
--- NOTE | 2024-02-10 08:08 | XR ---
EXAMINATION TYPE: XR chest 2V DATE OF EXAM: 02/10/2024 COMPARISON: 02/09/2024 HISTORY: Postop cardiac surgery TECHNIQUE: Frontal and lateral views of the chest are obtained. FINDINGS: Scattered senescent parenchymal changes noted. Hyperinflation compatible with COPD. Postoperative pleural parenchymal changes noted bilaterally. Tiny effusions seen. No evidence for pne umothorax. Heart size is stable. Mediastinal structures are stable and grossly unremarkable. No evidence for hilar prominence. Degenerative changes dorsal spine. IMPRESSION: 1. Postoperative pleural parenchymal changes noted bilaterally. Tiny effusions seen. No evidence for pneumothorax.
[2024-02-10] MEDS: POTASSIUM CHLORIDE ER 20 MEQ TAB.ER PO SCH (08:44)
--- NOTE | 2024-02-10 11:06 | CA ---
Transthoracic Echo Report Name: Rosmery Vazquez Age: 68 Gender: F : 1955 Exam Date: 02/10/2024 08:06 Exam Location: [place] [facility] Ht (in): 60 Wt (lb): 139 Ordering Physician: Chun De La Garza MD Attending/Referring Phys: Director Sales And Marketing Chiac Purvis RDCS Procedure CPT: Indications: limited to pericardial effusion Cardiac Hx: Technical Quality: Fair Contrast 1: Total Dose (mL): Contrast 2: Total Dose (mL): MEASUREMENTS (Male / Female) Normal Values DOPPLER MV Peak Velocity 155.5 cm/s MV Peak Gradient 9.7 mmHg MV Mean Velocity 76.6 cm/s MV Mean Gradient 2.9 mmHg MV Velocity Time Integral 47.2 cm FINDINGS Left Ventricle Right Ventricle Right Atrium Left Atrium Mitral Valve Mitral valve replacement. Aortic Valve Tricuspid Valve Tricuspid valve repair. Pulmonic Valve Pericardium Minimal pericardial effusion. Slight respiratory variation of mitral valve. Aorta CONCLUSIONS Small pericardial effusion noted Previewed by: Dr. [place] MD (Electronically Signed) Final Date: 10 February 2024 11:04
[2024-02-10 12:12] LABS: Glucose,Whole Blood 72 mg/dL (70-110)
[2024-02-10] MEDS: MAGNESIUM HYDROXIDE 2,400 MG/30 ML CUP PO PRN (12:42)
[2024-02-10] MEDS: POTASSIUM CHLORIDE ER 10 MEQ TAB.ER.PRT PO SCH (12:48)
[2024-02-10] MEDS: FUROSEMIDE 10 MG/ML 4 ML VIAL IV SCH (12:48)
--- NOTE | 2024-02-10 13:35 | P.PN ---
Subjective Progress Note Date: 02/10/24 Principal diagnosis: Severe mitral regurgitation, moderate to severe tricuspid regurgitation, moderate aortic insufficiency per transthoracic echocardiogram, severe pulmonary hypertension, acute heart failure with preserved left ventricular systolic function. History of mild CAD, hyperlipidemia, COPD on home oxygen at night and PRN, recent pneumonia, GERD, previous tobacco dependence, occasional marijuana use, family history of coronary artery disease with mother from myocardial infarction in her 70s POD #5 mitral valve replacement with a 29 mm Hannah Mitris resilia bioprosthetic mitral valve, tricuspid valve repair with a 30 mm Hannah MC 3 ring, clip ligation of the left atrial appendage with a 35 mm AtriClip, intraoperative transesophageal echocardiogram performed by anesthesia Acute blood loss anemia, expected given hemodilution and cardiopulmonary bypass pump. Third degree heart block, unexpected, POD #1 implantation of Micra AV device by Dr. Mead. The patient was seen and examined in follow-up today February 10, 2024 at her bedside in the intensive care unit. She is currently sitting up to the bedside chair, is awake, alert, oriented x 3 and is in no acute apparent distress. She denies any complaints of shortness of breath at this time, although was complaining of some heartburn which is relieved with taking Tums. Oxygen saturations are 98% on room air and she is achieving 750 mL on her incentive spirometry with encouragement. Patient underwent an implantation of a Micra AV device yesterday completed by Dr. Mead from electrophysiology, currently her bedside telemetry is showing a paced rhythm VVI of 60 with an underlying rhythm of third-degree heart block. Atrial and ventricular epicardial pacemaker wires are grounded. The patient reports she has been up ambulating in the intensive care unit hallway with standby assistance nursing and therapy staff and tolerating well. She remains hemodynamically stable and is currently on no inotropic or pressor support. Laboratory and chest x-ray results were reviewed. Objective - Vital Signs Vital signs: Vital Signs Temp 97.7 F 02/10/24 08:00 Pulse 59 L 02/10/24 09:00 Resp 16 02/10/24 09:00 BP 109/55 02/10/24 09:00 Pulse Ox 99 02/10/24 08:00 FiO2 40 02/05/24 22:05 Intake & Output 02/09/24 02/10/24 02/10/24 18:59 06:59 18:59 Intake Total 1452 200 Output Total 800 450 100 Balance 652 -250 -100 Weight 62.4 kg 63.5 kg Intake: IV 792 Sodium Chloride 0.9% 1, 40 000 ml @ 20 mls/hr IV . Q24H KAMINI Rx#:[id number] Intake, IV Titration 100 Amount Sodium Ferric Gluconat- 100 Sucrose 125 mg In Sodium Chloride 0.9% 100 ml @ 100 mls/hr IVPB DAILY KAMINI Rx#:[id number] Oral 560 200 Output: Urine 800 450 100 Other: Voiding Method Bedside Commode Bedside Commode # Voids 0 ABP, PAP, CO, CI - Last Documented Arterial Blood Pressure 89/39 Pulmonary Artery Pressure 236/236 Cardiac Output 4.4 Cardiac Index 3 - Exam CONSTITUTIONAL: Appears comfortable, cooperative, no acute distress RESPIRATORY: Lungs sounds diminished to her bilateral bases. Respirations symmetrical, nonlabored. Currently on room air with oxygen saturation 98%. Able to achieve 750 mL on incentive spirometry. Strong cough. CARDIOVASCULAR: S1, S2 present, negative for S3 or gallop. Regular rate and rhythm, VVI paced on telemetry, rate 60 bpm, underlying rhythm third-degree heart block. Sternum stable. Palpable peripheral pulses bilaterally. No edema present. No calf pain or tenderness noted. Heart hugger in place with patient demonstrating appropriate use. Antiembolism stockings, SCDs present. GASTROINTESTINAL: Abdomen soft, nontender, nondistended. Active bowel sounds present 4 quadrants. Tolerating minimal diet. Bowel movement yesterday February 09, 2024. Passing flatus. GENITOURINARY: Continues to void. Urine output 300 mL in the last 8 hours. INTEGUMENTARY: Skin is warm and dry, no clubbing or cyanosis is present. Midline sternal chest incision well approximated and covered with dry intact dressing. Some sera-incisional ecchymosis. Bilateral groin puncture sites clean and dry, sutures in place to her right groin. NEUROLOGIC: Cranial nerves II through XII intact. No focal deficits. MUSKULOSKELETAL: Able to move all extremities, strength equal bilaterally. PSYCHIATRIC: Alert and oriented to person place and time, appropriate affect, intact judgment and insight. INVASIVE LINES AND TUBES: A/V epicardial pacemaker wires present and are grounded. - Allied health notes Allied health notes reviewed: nursing - Labs CBC & Chem 7: 02/10/24 06:16 02/10/24 06:16 Labs: Abnormal Lab Results - Last 24 Hours (Table) 02/10/24 02/10/24 Range/Units 06:16 06:16 WBC 10.9 H (3.8-10.6) k/uL RBC 2.38 L (3.80-5.40) m/uL Hgb 7.2 L (11.4-16.0) gm/dL Hct 23.3 L (34.0-46.0) % MCHC 30.8 L (31.0-37.0) g/dL RDW 17.5 H (11.5-15.5) % Sodium 136 L (137-145) mmol/L Chloride 108 H (98-107) mmol/L Carbon Dioxide 19 L (22-30) mmol/L BUN 24 H (7-17) mg/dL AST 140 H (14-36) U/L ALT 137 H (4-34) U/L Alkaline Phosphatase 138 H (38-126) U/L Total Protein 4.9 L (6.3-8.2) g/dL Albumin 3.1 L (3.5-5.0) g/dL - Imaging and Cardiology Chest x-ray: report reviewed, image reviewed Assessment and Plan Assessment: Severe mitral regurgitation, moderate to severe tricuspid regurgitation per ENRIQUE, status post mitral valve replacement, tricuspid valve repair Severe pulmonary hypertension Acute heart failure with preserved left ventricular systolic function, EF 55-60% Third-degree heart block, currently VVI paced, status post implantation of Micra AV device by Dr. Mead History of mild coronary artery disease Hyperlipidemia, treated COPD on home oxygen at night and PRN Recent pneumonia GERD Previous tobacco dependence, quit 1 month ago, [id number] history Occasional marijuana use Family history of coronary artery disease with mother from myocardial infarction in her 70s Plan: Continue to maximize medical therapy with aspirin, statin, Plavix. Hold beta jose for now. Continue low dose losartan for afterload reduction. Encourage incentive spirometry use 10 times every hour while awake. Bronchodilators per pulmonology. Increase activity, ambulate as tolerated. PT/OT/cardiac rehab following. Will monitor daily labs and chest x-rays. Electrolyte replacement per protocol. Lasix 40 mg IV daily and potassium chloride ER 10 mEq p.o. daily while on Lasix. GI/DVT prophylaxis. Pain control per current medication regimen. Insulin management per internal medicine. Patient is not diabetic, preoperative hemoglobin A1c 5.1%. Continue to monitor strict accurate intake and output. Daily weights. Atrial and ventricular epicardial pacemaker wires were removed without incident. Bedrest for 1 hour post pacemaker wire removal. Transfer to the third floor cardiac stepdown unit when bed available. Discharge planning is in place, anticipate discharge home within the next 24 to 48 hours with home health care. Shower daily when okay with cardiology. More recommendations to follow based on patient's clinical course. Time with Patient: Greater than 30
--- NOTE | 2024-02-10 14:52 | P.PN ---
Subjective Progress Note Date: 02/10/24 Principal diagnosis: Severe symptomatic mitral regurgitation, status post mitral valve replacement and tricuspid valve repair Patient is a 68-year-old female with past medical history significant for COPD, chronic oxygen dependence, chronic ongoing tobacco dependence, hyperlipidemia, hypertension, among other things. Patient reports over the past 1 month she has had 3 episodes of what she attributed to be panic attacks. She was acutely short of breath followed by anxiety. Of note, also had multiple episodes of syncope over the last few months. On December she was evaluated at [facility]. Reportedly underwent heart catheterization, I do not believe she received any percutaneous coronary intervention. She was found to have significant valvular heart disease on transthoracic echocardiogram, official results are not available to me at this time.. Reported affected valves include severe mitral regurgitation and at least moderate to severe aort ic regurgitation. Yesterday, patient was transferred to [facility] for ENRIQUE and cardiothoracic surgery consult. Patient is currently in the intensive care unit room 263. She is sitting up in bed on 3 L/min nasal cannula. SpO2 is 100% at rest. Not in any respiratory distress. Reportedly normally wears 2 to 3 L nasal cannula at bedtime. She does have history of COPD and normally utilizes a combination of Trelegy maintenance inhaler and albuterol nebs. She still smokes approximately 1 pack/day. She is wheezing. Denies any infectious symptoms. No change in chronic cough, sputum production, chest pain, fever. We are waiting on chest x-ray. Currently on a combination of Pulmicort, DuoNebs, and IV Solu-Medrol. CBC from outside facility: WBC count 10, hemoglobin 9.9, hematocrit 30.8, platelets 202. BMP from outside facility includes a sodium 143, potassium 4.2, chloride 108, serum bicarb 32, BUN 15, creatinine 0.88, glucose 100. Troponins were mildly elevated. Hemodynamics are stable. On today's evaluation of 02/03/2024, I am seeing the patient for a follow-up. The patient is currently on room air oxygen. ENRIQUE was completed was found to have severe mitral regurgitation, in addition to reversal of flow in the pulmonary veins as well as dilated left atrium and moderate to severe tricuspid regurgitation. Her current cardiac rhythm remains sinus. The patient is hemodynamic stable on room air oxygen. The patient is on DuoNeb nebulized treatments [id number]. The patient is also on IV Solu-Medrol regarding COPD and a dose of 40 mg every 8 hours. Most recent chest x-ray from yesterday showed some mild pulm vascular congestion. Carotid Dopplers showed no critically abnormal stenosis involving the coronary arteries. The patient is awaiting recommendations from cardiothoracic surgery regarding valve surgery. The patient is edentulous. No new labs are available from today. Medications remain unchanged and the patient is currently on Lasix 40 mg p.o. daily the patient is also on metoprolol 75 mg p.o. daily. She is on Celexa and Wellbutrin regarding history of depression. On today's evaluation of 02/04/2024, the patient is being seen for a follow-up. Patient is doing well. She was transferred out of the intensive care unit [facility]. The plan is to proceed with cardiac surgery in the morning. The patient has severe mitral regurgitation and this has been confirmed by ENRIQUE. The patient is scheduled to undergo surgery with mitral valve repair/possible replacement in a.m. on 02/05/2024. The patient is currently on room air oxygen. No signs of any fluid overload. No cardiac arrhythmias. No chest pain. No significant justin rtness of breath. The white cell count is 12.5 with a hemoglobin 12.1 and a platelet count of 435. Normal coagulation profile. BUN is 36 with a creatinine of 1 and sodium is at 137 and serum bicarbonate 31. LDL cholesterol is at 223. 02/05/2024, the patient is being seen in the intensive care unit immediately after she arrived to the ICU. At this point in time, the patient is sedated and she is on propofol which is at 35 mcg/kg/min. She is well sedated and she is calm and comfortable. She is currently on assist-control mode of mechanical ventilation at a rate of 14, tidal volume of 350, FiO2 of 100% and a PEEP of 5. Initial blood gases showed a pH of 7.30 with a pCO2 of 49 and pO2 of 422. Based on that, the FiO2 has been dropped down to 50% and I increased the rate up to 20. Chest x-ray was noted and there is no evidence of any pneumothorax. ET tube is in a good location. Frisco-Luis catheter ideally needs to be advanced by a centimeter. The patient has right-sided chest tube, left-sided chest tube and a mediastinal chest tube. Output from the chest was of been noted. The patient has produced approximately 40 cc of bloody material from the mediastinal chest tube, 30 from the right and 10 from the left. No evidence of any air leak. Hemodynamically, the patient's systolic blood pressure is 97 with a diastolic pressure of 56. Cardiac output is at 2.5 with an index of 1.7. Cardiac rhythm is paced at a rate of 83 and the underlying cardiac rhythm is third-degree AV block. Pulmonary artery pressures of 31/19. SVR is elevated. Currently receiving IV albumin 5% a total of 250cc hide the patient will be also started on milrinone.Patient She may also require norepinephrine for blood pressure support. Urine output is adequate at this point in time. In terms of the blood work, the WBC count is at 7.9, hemoglobin 7.3 and a platelet count of 171. BUN is 26 with a creatinine of 0.77 and a sodium levels of 136. The current temperature is at 36. The patient is sitting external warming measures. Calcium level is at 7.3. 02/06/2024, the patient is being seen for a follow-up. The patient is postop day number 1 following mitral valve and tricuspid valve replacement. The patient was weaned off the mechanical ventilator the patient was extubated yesterday and the patient is currently on room air oxygen. she has no significant respiratory distress. The patient is using the incentive spirometer. Chest x-ray from today shows no evidence of any pneumothorax. Chest tubes are still in place. The mediastinal chest tube Produced 550 cc, left pleural produced 300 cc in the right chest tube was produced 250 cc surgery. The patient's output is serosan guineous/bloody. Hemodynamically, the patient underlying cardiac rhythm is stable third-degree AV block. The patient is being paced at a rate of 80. The patient was started on a combination of milrinone and norepinephrine. Norepinephrine was discontinued the patient is currently on milrinone which is running at 0.2 mcg/kg/min. The most recent hemodynamic parameters show a cardiac output of 3.4 with an index of 2.3. PA pressures of 47/70. CVP is at 9. Noted the patient had received 2 units of packed RBC in the operating room. Hemoglobin stable at 9.8 with a white cell count of 9.1. Platelet count is at 129. BUN is 21 with a creatinine of 0.7. Electrolytes are all within normal limits. The patient is afebrile. Awake and alert and communicating. Beta- blockers are still on hold. 02/07/2024, the patient remains extubated, postop day #2, currently on room air oxygen. Cardiac index was up to 3. Milrinone is being weaned off and this will be discontinued. The right pleural and left lower chest tube will be also removed and the mediastinal chest tube will be kept in place. Hemodynamically stable. Producing adequate amount of urine output. Cardiac rhythm remains paced at the rate of 80. Underlying rhythm remains in third-degree AV block. The blood work from today shows a WBC of 9.2, hemoglobin of 8.6 and a platelet count of 113. Serum bicarb is at 19 but is from the 134 and a BUN of 13 with a creatinine of 0.6. The patient also received a dose of Lasix today given to her by the cardiothoracic team. She is off beta-blockers. Utilizing losartan 12.5 mg for blood pressure control. No other significant events. Awake and alert and communicating. No neurological deficits. Patient was evaluated today on 02/08/2024, she is now postoperative day #3. Patient is status post mitral valve replacement and tricuspid valve repair, postoperative day #3. She is on room air, does not seem to be in any distress, she seems to be doing poorly with incentive spirometry. Hemodynamically stable, cardiac output 4.4 cardiac index is 3 patient received Lasix earlier today 20 mg IV push. Patient may need a permanent pacemaker implantation, and that is yet to be decided by cardiology. Continues to have chest tube in place. Evidence of leak, no evidence of pneumothorax on chest x-ray. Patient has an underlying rhythm of third-degree AV block, and again pacemaker placement is pending WBC count is 7.5 hemoglobin 7.7 electrolytes are normal renal profile is normal c hest x-ray showed mostly postoperative changes. No acute process Patient was evaluated today 02/09/2024, patient is in the ICU, she is on room air, she is now postoperative day #4. Mitral valve replacement and tricuspid valve repair, patient is not in any distress, she just [facility], she had implantation of Micra AV device for complete heart block post mitral valve repair. Patient has no active pulmonary symptoms, no cough no wheezing no shortness of breath no chest pain. Chest x-ray is reassuring. Labs are basically unremarkable hemoglobin is 7.7 otherwise the rest of the labs are basically normal patient is hemodynamically stable, not requiring any pressors or any inotropes. She is achieving 750 mL on her incentive spirometry. Her mediastinal chest tube was discontinued yesterday. Patient was seen today on 02/10/2024, patient continues to do well, remains in the ICU, she is on room air, asymptomatic, patient is paced, had an echocardiogram today showed small pericardial effusion. This x-ray showed no postoperative pleural-parenchymal changes, no evidence of pneumothorax. No evidence of congestive heart failure. Overall the patient is doing great, she is now postoperative day #5 WBC is 10.9 hemoglobin 7.2 electrolytes are normal renal profile is normal liver enzymes are a bit elevated. Objective - Vital Signs Vital signs: Vital Signs Temp 97.7 F 02/10/24 12:10 Pulse 50 L 02/10/24 14:00 Resp 14 02/10/24 14:00 BP 108/51 02/10/24 14:00 Pulse Ox 96 02/10/24 14:00 FiO2 40 02/05/24 22:05 Intake & Output 02/09/24 02/10/24 02/10/24 18:59 06:59 18:59 Intake Total 1452 200 Output Total 800 450 100 Balance 652 -250 -100 Weight 62.4 kg 63.5 kg Intake: IV 792 Sodium Chloride 0.9% 1, 40 000 ml @ 20 mls/hr IV . Q24H KAMINI Rx#:[id number] Intake, IV Titration 100 Amount Sodium Ferric Gluconat- 100 Sucrose 125 mg In Sodium Chloride 0.9% 100 ml @ 100 mls/hr IVPB DAILY KAMINI Rx#:[id number] Oral 560 200 Output: Urine 800 450 100 Other: Voiding Method Bedside Commode Bedside Commode Bedside Commode # Voids 0 ABP, PAP, CO, CI - Last Documented Arterial Blood Pressure 89/39 Pulmonary Artery Pressure 236/236 Cardiac Output 4.4 Cardiac Index 3 - Exam GENERAL EXAM: 68-year-old in no distress on room air HEAD: Normocephalic and atraumatic EYES: Normal reaction of pupils, equal size. NOSE: Clear with pink turbinates. THROAT: No erythema or exudates. NECK: No masses, no JVD. CHEST: No chest wall deformity. LUNGS: Clear bilaterally no rhonchi no wheezes. CVS: S1 and S2 normal with harsh systolic murmur mainly heard over the left lung apex, regular rhythm. No other extra heart sounds, cardiac rhythmis rate of 80 ABDOMEN: No hepatosplenomegaly, active bowel sounds, no guarding or rigidity. SKIN: No rashes CENTRAL NERVOUS SYSTEM: Alert and oriented x 3 no gross focal neurologic deficit Psychiatric: Normal mood affect and no mental status examination EXTREMITIES: No clubbing edema or cyanosis - Labs CBC & Chem 7: 02/10/24 06:16 02/10/24 06:16 Labs: Abnormal Lab Results - Last 24 Hours (Table) 02/10/24 02/10/24 Range/Units 06:16 06:16 WBC 10.9 H (3.8-10.6) k/uL RBC 2.38 L (3.80-5.40) m/uL Hgb 7.2 L (11.4-16.0) gm/dL Hct 23.3 L (34.0-46.0) % MCHC 30.8 L (31.0-37.0) g/dL RDW 17.5 H (11.5-15.5) % Sodium 136 L (137-145) mmol/L Chloride 108 H (98-107) mmol/L Carbon Dioxide 19 L (22-30) mmol/L BUN 24 H (7-17) mg/dL AST 140 H (14-36) U/L ALT 137 H (4-34) U/L Alkaline Phosphatase 138 H (38-126) U/L Total Protein 4.9 L (6.3-8.2) g/dL Albumin 3.1 L (3.5-5.0) g/dL Assessment and Plan Assessment: Impression: Status post mitral valve replacement and tricuspid valve repair the patient is postop day #5 Status post implantation of Micra AV device for complete heart block postoperative day #0 COPD, recovered from acute COPD exacerbation Postoperative anemia, acute blood loss anemia, expected Anemia, normocytic normochromic Chronic ongoing tobacco dependence, 1 pack/day smoker with over [id number] history History of hyperlipidemia History of hypertension Chronic back pain and she is on Neurontin, and hydrocodone Depression Migraines cephalgia. Smoker Recommendation: Continue incentive spirometry Continue medical therapy and supportive care measures Ambulation Continue diuretics intermittently Continue to monitor daily labs and daily x-rays of the chest Will continue to follow Time with Patient: Less than 30
[2024-02-10 16:55] LABS: Glucose,Whole Blood 78 mg/dL (70-110)
[2024-02-10 20:19] LABS: Glucose,Whole Blood 82 mg/dL (70-110)
[2024-02-11 04:52] LABS: Anisocytosis Slight; Basophils % (A) 0 %; Eosinophils # (A) 0.2 k/uL (0-0.7); Eosinophils % (A) 2 %; HCT 23.7 % (34.0-46.0); HGB 7.4 gm/dL (11.4-16.0); Hypochromasia Marked; Lymphocytes # (A) 1.2 k/uL (1.0-4.8); Lymphocytes % (A) 10 %; MCH 30.9 pg (25.0-35.0); MCHC 31.2 g/dL (31.0-37.0); Macrocytosis Slight; Mean Platelet Volume 8.9; Monocytes # (A) 0.8 k/uL (0-1.0); Monocytes % (A) 7 %; Neutrophils # (A) 9.4 k/uL (1.3-7.7); Neutrophils % (A) 81 %; Platelet Count 232 k/uL (150-450); RBC 2.39 m/uL (3.80-5.40); RDW 18.1 % (11.5-15.5); WBC 11.6 k/uL (3.8-10.6)
[2024-02-11 05:08] LABS: ALT 146 U/L (4-34); AST 123 U/L (14-36); African American GFR (CKD) 62 (>60 ml/min/1.73 sqM); Albumin 3.2 g/dL (3.5-5.0); Alkaline Phosphatase 150 U/L (38-126); Anion Gap 9 mmol/L; Blood Urea Nitrogen 33 mg/dL (7-17); Calcium 8.8 mg/dL (8.4-10.2); Carbon Dioxide 20 mmol/L (22-30); Chloride 107 mmol/L (98-107); Glucose 58 mg/dL (74-99); Non-African American GFR(CKD) 54 (>60 ml/min/1.73 sqM); Sodium 136 mmol/L (137-145); Total Bilirubin 0.8 mg/dL (0.2-1.3); Total Protein 4.9 g/dL (6.3-8.2)
[2024-02-11 06:09] LABS: Glucose,Whole Blood 109 mg/dL (70-110)
--- NOTE | 2024-02-11 08:31 | XR ---
EXAMINATION TYPE: XR chest 2V DATE OF EXAM: 02/11/2024 COMPARISON: 02/10/2024 HISTORY: Shortness of breath TECHNIQUE: Frontal and lateral views of the chest are obtained. FINDINGS: Scattered senescent parenchymal changes noted. Hyperinflation compatible with COPD. Postoperative car diac surgery changes are redemonstrated. Tiny effusions and scattered pleural-parenchymal density not ed. No evidence for pneumothorax. No evidence for infiltrate. No evidence for atelectasis. Heart size is stable. Mediastinal structures are stable and grossly unremarkable. No evidence for hilar prominence. Degenerative changes dorsal spine. IMPRESSION: 1. Postoperative cardiac surgery changes are redemonstrated. Tiny effusions and scattered pleural-par enchymal density noted. No evidence for pneumothorax.
--- NOTE | 2024-02-11 10:15 | P.PN ---
Subjective Progress Note Date: 02/11/24 Principal diagnosis: Severe mitral regurgitation, moderate to severe tricuspid regurgitation, moderate aortic insufficiency per transthoracic echocardiogram, severe pulmonary hypertension, acute heart failure with preserved left ventricular systolic function. History of mild CAD, hyperlipidemia, COPD on home oxygen at night and PRN, recent pneumonia, GERD, previous tobacco dependence, occasional marijuana use, family history of coronary artery disease with mother from myocardial infarction in her 70s POD #6 mitral valve replacement with a 29 mm Hannah Mitris resilia bioprosthetic mitral valve, tricuspid valve repair with a 30 mm Hannah MC 3 ring, clip ligation of the left atrial appendage with a 35 mm AtriClip, intraoperative transesophageal echocardiogram performed by anesthesia Acute blood loss anemia, expected given hemodilution and cardiopulmonary bypass pump. Third degree heart block, unexpected, POD #2 implantation of Micra AV device by Dr. Mead. The patient was seen and examined in follow-up today 02/11/2024 at her bedside on the third floor cardiac stepdown unit. She is currently sitting up to bedside chair, is awake, alert, oriented 3 and is in no acute distress. She denies any complaints of shortness of breath or surgical type pain at this time, although she is complaining of some heartburn which is relieved with Tums and Maalox. The patient also is on Protonix 40 mg by mouth twice a day. Oxygen saturations are 97% on room air and she is achieving 750 mL on her incentive spirometry and encouragement. Remote telemetry is third degree heart block with occasional paced beats heart rate in the 50s. She has been up ambulating to the bathroom with minimal assist from nursing and therapy staff and tolerating well. Atrial and ventricular epicardial pacemaker wires have been removed without incident yesterday. Discharge planning is in place. Chest x-ray and laboratory results were reviewed. Objective - Vital Signs Vital signs: Vital Signs Temp 97.6 F 02/11/24 07:00 Pulse 55 L 02/11/24 07:00 Resp 16 02/11/24 08:10 BP 111/68 02/11/24 07:00 Pulse Ox 98 02/11/24 07:00 FiO2 40 02/05/24 22:05 Intake & Output 02/10/24 02/11/24 02/11/24 18:59 06:59 18:59 Intake Total 10 30 10 Output Total 200 Balance -190 30 10 Weight 63 kg Intake: IV 10 30 10 Invasive Line 8 10 30 10 Output: Urine 200 Other: Voiding Method Bedside Commode Bedside Commode Bedside Commode # Voids 0 ABP, PAP, CO, CI - Last Documented Arterial Blood Pressure 89/39 Pulmonary Artery Pressure 236/236 Cardiac Output 4.4 Cardiac Index 3 - Exam CONSTITUTIONAL: Appears comfortable, cooperative, no acute distress RESPIRATORY: Lungs sounds diminished to her bilateral bases. Respirations symmetrical, nonlabored. Currently on room air with oxygen saturation 97%. Able to achieve 750 mL on incentive spirometry. Strong cough. CARDIOVASCULAR: S1, S2 present, negative for S3 or gallop. Regular rate and rhythm. Sternum stable. Palpable peripheral pulses bilaterally. No edema present. No calf pain or tenderness noted. Heart hugger in place with patient demonstrating appropriate use. Antiembolism stockings, SCDs present. GASTROINTESTINAL: Abdomen soft, nontender, nondistended. Active bowel sounds present 4 quadrants. Tolerating minimal diet. Bowel movement yesterday February 10, 2024. Passing flatus. Heartburn. GENITOURINARY: Continues to void. Urine output 200 mL in the last 8 hours. INTEGUMENTARY: Skin is warm and dry, no clubbing or cyanosis is present. Midline sternal chest incision well approximated and covered with dry intact dressing. Some sera-incisional ecchymosis. Bilateral groin puncture sites clean and dry, sutures in place to her right groin. NEUROLOGIC: Cranial nerves II through XII intact. No focal deficits. MUSKULOSKELETAL: Able to move all extremities, strength equal bilaterally. PSYCHIATRIC: Alert and oriented to person place and time, appropriate affect, intact judgment and insight. - Allied health notes Allied health notes reviewed: nursing - Labs CBC & Chem 7: 02/11/24 04:26 02/11/24 04:26 Labs: Abnormal Lab Results - Last 24 Hours (Table) 02/11/24 02/11/24 Range/Units 04:26 04:26 WBC 11.6 H (3.8-10.6) k/uL RBC 2.39 L (3.80-5.40) m/uL Hgb 7.4 L (11.4-16.0) gm/dL Hct 23.7 L (34.0-46.0) % RDW 18.1 H (11.5-15.5) % Neutrophils # 9.4 H (1.3-7.7) k/uL Sodium 136 L (137-145) mmol/L Carbon Dioxide 20 L (22-30) mmol/L BUN 33 H (7-17) mg/dL Creatinine 1.08 H (0.52-1.04) mg/dL Glucose 58 L (74-99) mg/dL AST 123 H (14-36) U/L ALT 146 H (4-34) U/L Alkaline Phosphatase 150 H (38-126) U/L Total Protein 4.9 L (6.3-8.2) g/dL Albumin 3.2 L (3.5-5.0) g/dL - Imaging and Cardiology Chest x-ray: report reviewed, image reviewed Assessment and Plan Assessment: Severe mitral regurgitation, moderate to severe tricuspid regurgitation per ENRIQUE, status post mitral valve replacement, tricuspid valve repair Severe pulmonary hypertension Acute heart failure with preserved left ventricular systolic function, EF 55-60% Third-degree heart block, status post implantation of Micra AV device by Dr. Mead History of mild coronary artery disease Hyperlipidemia, treated COPD on home oxygen at night and PRN Recent pneumonia GERD Previous tobacco dependence, quit 1 month ago, [id number] history Occasional marijuana use Family history of coronary artery disease with mother from myocardial infarction in her 70s Plan: Continue to maximize medical therapy with aspirin, statin, Plavix. Continue to hold beta jose. Continue low dose losartan for afterload reduction. Encourage incentive spirometry use 10 times every hour while awake. Bronchodil ators per pulmonology. Increase activity, ambulate as tolerated. PT/OT/cardiac rehab following. Will monitor daily labs and chest x-rays. Electrolyte replacement per protocol. Discontinue Lasix daily. Transfuse 1 unit of PRBCs for hemoglobin of 7.4, albumin 5% 250 milliliters 1 now, after the 1 unit of PRBCs has been transfused Lasix 20 mg 1. GI/DVT prophylaxis. Pain control per current medication regimen. Insulin management per internal medicine. Patient is not diabetic, preoperative hemoglobin A1c 5.1%. Continue to monitor strict accurate intake and output. Daily weights. Discharge planning is in place, anticipate discharge to inpatient rehab within the next [address] Collins has been consulted for evaluation for inpatient rehab Shower daily. More recommendations to follow based on patient's clinical course. Time with Patient: Greater than 30
[2024-02-11] MEDS: SUCRALFATE 1 GM TAB PO SCH ×2 (10:24→19:54)
[2024-02-11 11:50] LABS: Glucose,Whole Blood 84 mg/dL (70-110)
[2024-02-11] MEDS: ALBUMIN HUMAN 5% 250 ML in EMPTY BAG 1 BAG IVPB STA (12:18)
--- NOTE | 2024-02-11 13:52 | P.CONS ---
History of Present Illness - Reason for Consult Consult date: 02/11/24 rehab recommendations - Chief Complaint s/p mitral valve replacement and tricuspid valve repair - History of Present Illness Ms Vazquez is a 68 y/o right handed single female who lives alone in a first floor apartment with 0 TRI. Prior to admission patient was ambulating within her apartment independent, using a 4ww in the community. She was independent with ADLs. She drives. Neighbors are supportive. She wears O2 at night. Patient with past medical history significant for COPD, chronic oxygen dependence, chronic ongoing tobacco dependence, hyperlipidemia, hypertension, among other things. Patient reports over the past 1 month she has had 3 episodes of what she attributed to be panic attacks. She was acutely short of breath followed by anxiety. Of note, also had multiple episodes of syncope over the last few months. On December she was evaluated at [facility]. Reportedly underwent heart catheterization, She was found to have significant valvular heart disease on transthoracic echocardiogram. Reported affected valves include severe mitral regurgitation and at least moderate to severe aortic regurgitation. Yesterday, patient was transferred to [facility] for ENRIQUE and cardiothoracic surgery consult. Troponins were mildly elevated. ENRIQUE was completed was found to have severe mitral regurgitation, in addition to reversal of flow in the pulmonary veins as well as dilated left atrium and moderate to severe tricuspid regurgitation. Her current cardiac rhythm remains sinus. The patient is hemodynamic stable on room air oxygen. Most recent chest x-ray from yesterday showed some mild pulm vascular congestion. Carotid Dopplers showed no critically abnormal stenosis involving the coronary arteries. The patient is awaiting recommendations from cardiothoracic surgery regarding valve surgery. The patient is scheduled to undergo surgery with mitral valve repair/possible replacement in a.m. on 02/05/2024. Chest x-ray was noted and there is no evidence of any pneumothorax. Cardiac rhythm is paced at a rate of 83 and the underlying cardiac rhythm is third-degree AV block, pending pacemaker placement. WBC count is at 7.9, hemoglobin 7.3 and a platelet count of 171. BUN is 26 with a creatinine of 0.77 and a sodium levels of 136. The patient was weaned off the mechanical ventilator the patient was extubated 02/05/24. The patient had received 2 units of packed RBC in the operating room. 02/09/24 pacemaker placed. PM&R consulted for rehab recommendations; patient seen by therapies; min assist with bathing, mod assist with LB dressing, ambulated 64 ft Min Assist. 02/11/24: Patient resting in recliner, states she is doing ok but would really like to get moving. She feels that she is weak more so in her legs. She does have some incisional pain, denies SOB and abdominal pain. She has not had a BM for a couple of days, denies issues with urination. She reports chronic neck and back pain, " I need surgery again". She denies issues with swallowing but reports that she gets heart burn every time she eats. Review of Systems reviewed, as above in subjective Past Medical History Past Medical History: Coronary Artery Disease (CAD), COPD, Hyperlipidemia, Syncope Additional Past Medical History / Comment(s): HAD PNEUMONIA ABOUT 2 WEEKS AGO History of Any Multi-Drug Resistant Organisms: None Reported Past Surgical History: Back Surgery, Section, Heart Catheterization, Tubal Ligation Additional Past Surgical History / Comment(s): L4-L5 decompression Past Anesthesia/Blood Transfusion Reactions: No Reported Reaction Past Psychological History: Depression Smoking Status: Former smoker Past Alcohol Use History: None Reported Past Drug Use History: Marijuana Additional Drug Use History / Comment(s): Occasional marijuana Gummies - Past Family History Mother Family Medical History: Myocardial Infarction (NM) Additional Family Medical History / Comment(s): Mother at age 78 from myocardial infarction with history of pneumonia, 3 vessel CABG. Father Additional Family Medical History / Comment(s): Patient recently found out that the man who raised her was not her biological father, unknown history of biological father Brother(s) Additional Family Medical History / Comment(s): Patient has 2 brothers and one has known spinal stenosis. Patient has 2 sisters and one has Crohn's and one has Edvin-Vieira. Patient has one daughter with Crohn's disease. Medications and Allergies Home Medications Medication Instructions Recorded Confirmed Type Citalopram Hydrobromide 40 mg PO DAILY 12/26/22 02/01/24 History [Citalopram HBr] Cyanocobalamin (Vitamin B-12) 1,000 mcg PO DAILY 12/26/22 02/01/24 History [Vitamin B-12] Fluticasone/Umeclidin/Vilanter 1 puff INHALATION RT-DAILY 12/26/22 02/01/24 History [Trelegy Ellipta 200-62.5-25] Gabapentin [Neurontin] 600 mg PO TID 12/26/22 02/01/24 History Glycopyrrolate 1 mg PO TID 12/26/22 02/01/24 History HYDROcodone/APAP 10-325MG [Zoar 1 tab PO TID 12/26/22 02/01/24 History 10-325] Lovastatin [Mevacor] 20 mg PO HS 12/26/22 02/01/24 History Omeprazole [PriLOSEC] 40 mg PO DAILY 12/26/22 02/01/24 History buPROPion SR [Wellbutrin SR] 150 mg PO BID 12/26/22 02/01/24 History traZODone HCL 200 mg PO HS PRN 12/26/22 02/01/24 History valACYclovir HCL [Valtrex] 1,000 mg PO DAILY PRN 12/26/22 02/01/24 History Citalopram Hydrobromide [CeleXA] 20 mg PO DAILY 02/05/23 02/01/24 History Ipratropium-Albuterol Nebulize 3 ml INHALATION RT-QID PRN 02/05/23 02/01/24 History [Duoneb 0.5 mg-3 mg/3 ml Soln] ALPRAZolam [Xanax] 0.25 mg PO Q6H PRN 02/01/24 02/01/24 History Brexpiprazole [Rexulti] 1 mg PO DAILY 02/01/24 02/01/24 History Cholecalciferol (Vitamin D3) 50 mcg PO DAILY 02/01/24 02/01/24 History [Vitamin D3 (50 Mcg = 2000 Iu)] Dextroamphetamine/Amphetamine 10 mg PO BID@0700,1400 02/01/24 02/01/24 History [Adderall] Folic Acid 1 mg PO DAILY 02/01/24 02/01/24 History Glycopyrrolate [Robinul] 1 mg PO TID 02/01/24 02/01/24 History Lactulose 20 gm PO DAILY 02/01/24 02/01/24 History Metoprolol Succinate (ER) [Toprol 50 mg PO DAILY 02/01/24 02/01/24 History Xl] Allergies Allergy/AdvReac Type Severity Reaction Status Date / Time amoxicillin [From Augmentin] AdvReac Nausea & Verified 02/05/24 06:45 Vomiting clavulanic acid AdvReac Nausea & Verified 02/05/24 06:45 [From Augmentin] Vomiting Physical Exam Vitals: Vital Signs Temp Pulse Pulse Pulse Pulse Resp BP 02/11/24 12:05 64 02/11/24 11:56 63 02/11/24 08:10 16 02/11/24 07:00 97.6 F 55 L 16 02/11/24 04:28 97.4 F L 54 L 16 02/11/24 02:00 20 02/10/24 20:25 64 02/10/24 20:15 64 02/10/24 20:14 64 02/10/24 20:00 60 02/10/24 19:51 97.9 F 55 L 55 L 16 02/10/24 19:47 20 02/10/24 18:02 20 02/10/24 17:19 50 L 20 97/56 02/10/24 16:00 97.8 F 51 L 20 92/44 02/10/24 15:59 20 02/10/24 15:00 52 L 20 97/56 02/10/24 14:00 50 L 14 108/51 BP Pulse Ox 02/11/24 12:05 02/11/24 11:56 02/11/24 08:10 02/11/24 07:00 111/68 98 02/11/24 04:28 103/55 97 02/11/24 02:00 02/10/24 20:25 02/10/24 20:15 02/10/24 20:14 02/10/24 20:00 02/10/24 19:51 92/54 95 02/10/24 19:47 02/10/24 18:02 02/10/24 17:19 98 02/10/24 16:00 99 02/10/24 15:59 02/10/24 15:00 97 02/10/24 14:00 96 Intake and Output 02/10/24 02/11/24 02/11/24 22:59 06:59 14:59 Intake Total 20 20 130 Output Total 0 Balance 20 20 130 Intake: IV 20 20 10 Invasive Line 8 20 20 10 Oral 120 Output: Urine 0 Other: Voiding Method Bedside Commode Bedside Commode Bedside Commode # Voids 0 Weight 63 kg General: WDWN female sitting up in recliner, NAD HEENT: NCAT, glasses on , eyes symmetric Cardiac: surgical incisions dressed, SCDs on, compression stockings on, 1-2+ pedal edema Pulm: Even and non labored respirations on RA GI: soft, non tender abdomen : no suprapubic tenderness MSK: Functional ROM of arms and legs, complaints of pain from OA with ROM of legs Neuro: A & O x 4, speech is clear and fluent MMT: B/L UE 4+/5, SABD to gravity not physically tested B/L HF and KE 4/5 with giveaway- complaints of joint pain, DF 5/5 Sensation intact to light touch LE Skin: Multiple areas of ecchymosis to arms and chest wall, dressing to chest Psych: Calm and cooperative Results CBC & Chem 7: 02/11/24 04:26 02/11/24 04:26 Labs: Abnormal Lab Results - Last 24 Hours (Table) 02/11/24 02/11/24 02/11/24 Range/Units 04:26 04:26 09:43 WBC 11.6 H (3.8-10.6) k/uL RBC 2.39 L (3.80-5.40) m/uL Hgb 7.4 L (11.4-16.0) gm/dL Hct 23.7 L (34.0-46.0) % RDW 18.1 H (11.5-15.5) % Neutrophils # 9.4 H (1.3-7.7) k/uL Sodium 136 L (137-145) mmol/L Carbon Dioxide 20 L (22-30) mmol/L BUN 33 H (7-17) mg/dL Creatinine 1.08 H (0.52-1.04) mg/dL Glucose 58 L (74-99) mg/dL AST 123 H (14-36) U/L ALT 146 H (4-34) U/L Alkaline Phosphatase 150 H (38-126) U/L Total Protein 4.9 L (6.3-8.2) g/dL Albumin 3.2 L (3.5-5.0) g/dL Crossmatch See Detail Assessment and Plan Assessment: # Cardiac debility secondary to Severe mitral regurgitation, moderate to severe tricuspid regurgitation, moderate aortic insufficiency s/p bioprosthetic mitral valve replacement and tricuspid valve repair -cardiac precautions -therapies # Third degree heart blood s/p pacemaker placement -pacemaker precautions #severe pulmonary hypertension #acute heart failure with preserved left ventricular systolic function #Acute blood loss anemia, expected given hemodilution and cardiopulmonary bypass pump. #Depression -Wellbutrin, Celexa #chronic back pain with h/o lumbar sx -patient reports she needs back and neck sx # Pain Management -Zoar 10/325 mg TID, Gabapentin 100 mg TID #DVT Proph -Asa 325 mg QD, Heparin SQ #Comorbidities: History of mild CAD, hyperlipidemia, COPD on home oxygen at night and PRN, recent pneumonia, GERD, previous tobacco dependence, occasional marijuana use Dispo: Recommending [facility]. Patient performing below her PLOF, needing assistance. She is able to get some assistance at her apartment and has neighbors who are able to assist. She is motivated for rehab. She will need insurance authorization. Discussed with Liaison at [facility] and patient does not have out of network benefits for [facility]. Still highly recommending [facility], case management to send alternate referrals to [facility], donita Mora. Patient seen and examined in collaboration with Dr Eason
--- NOTE | 2024-02-11 13:53 | P.PN ---
Subjective Progress Note Date: 02/11/24 Principal diagnosis: Severe symptomatic mitral regurgitation, status post mitral valve replacement and tricuspid valve repair Patient is a 68-year-old female with past medical history significant for COPD, chronic oxygen dependence, chronic ongoing tobacco dependence, hyperlipidemia, hypertension, among other things. Patient reports over the past 1 month she has had 3 episodes of what she attributed to be panic attacks. She was acutely short of breath followed by anxiety. Of note, also had multiple episodes of syncope over the last few months. On December she was evaluated at [facility]. Reportedly underwent heart catheterization, I do not believe she received any percutaneous coronary intervention. She was found to have significant valvular heart disease on transthoracic echocardiogram, official results are not available to me at this time.. Reported affected valves include severe mitral regurgitation and at least moderate to severe aort ic regurgitation. Yesterday, patient was transferred to [facility] for ENRIQUE and cardiothoracic surgery consult. Patient is currently in the intensive care unit room 263. She is sitting up in bed on 3 L/min nasal cannula. SpO2 is 100% at rest. Not in any respiratory distress. Reportedly normally wears 2 to 3 L nasal cannula at bedtime. She does have history of COPD and normally utilizes a combination of Trelegy maintenance inhaler and albuterol nebs. She still smokes approximately 1 pack/day. She is wheezing. Denies any infectious symptoms. No change in chronic cough, sputum production, chest pain, fever. We are waiting on chest x-ray. Currently on a combination of Pulmicort, DuoNebs, and IV Solu-Medrol. CBC from outside facility: WBC count 10, hemoglobin 9.9, hematocrit 30.8, platelets 202. BMP from outside facility includes a sodium 143, potassium 4.2, chloride 108, serum bicarb 32, BUN 15, creatinine 0.88, glucose 100. Troponins were mildly elevated. Hemodynamics are stable. On today's evaluation of 02/03/2024, I am seeing the patient for a follow-up. The patient is currently on room air oxygen. ENRIQUE was completed was found to have severe mitral regurgitation, in addition to reversal of flow in the pulmonary veins as well as dilated left atrium and moderate to severe tricuspid regurgitation. Her current cardiac rhythm remains sinus. The patient is hemodynamic stable on room air oxygen. The patient is on DuoNeb nebulized treatments [id number]. The patient is also on IV Solu-Medrol regarding COPD and a dose of 40 mg every 8 hours. Most recent chest x-ray from yesterday showed some mild pulm vascular congestion. Carotid Dopplers showed no critically abnormal stenosis involving the coronary arteries. The patient is awaiting recommendations from cardiothoracic surgery regarding valve surgery. The patient is edentulous. No new labs are available from today. Medications remain unchanged and the patient is currently on Lasix 40 mg p.o. daily the patient is also on metoprolol 75 mg p.o. daily. She is on Celexa and Wellbutrin regarding history of depression. On today's evaluation of 02/04/2024, the patient is being seen for a follow-up. Patient is doing well. She was transferred out of the intensive care unit y[facility]. The plan is to proceed with cardiac surgery in the morning. The patient has severe mitral regurgitation and this has been confirmed by ENRIQUE. The patient is scheduled to undergo surgery with mitral valve repair/possible replacement in a.m. on 02/05/2024. The patient is currently on room air oxygen. No signs of any fluid overload. No cardiac arrhythmias. No chest pain. No significant justin rtness of breath. The white cell count is 12.5 with a hemoglobin 12.1 and a platelet count of 435. Normal coagulation profile. BUN is 36 with a creatinine of 1 and sodium is at 137 and serum bicarbonate 31. LDL cholesterol is at 223. 02/05/2024, the patient is being seen in the intensive care unit immediately after she arrived to the ICU. At this point in time, the patient is sedated and she is on propofol which is at 35 mcg/kg/min. She is well sedated and she is calm and comfortable. She is currently on assist-control mode of mechanical ventilation at a rate of 14, tidal volume of 350, FiO2 of 100% and a PEEP of 5. Initial blood gases showed a pH of 7.30 with a pCO2 of 49 and pO2 of 422. Based on that, the FiO2 has been dropped down to 50% and I increased the rate up to 20. Chest x-ray was noted and there is no evidence of any pneumothorax. ET tube is in a good location. [place] catheter ideally needs to be advanced by a centimeter. The patient has right-sided chest tube, left-sided chest tube and a mediastinal chest tube. Output from the chest was of been noted. The patient has produced approximately 40 cc of bloody material from the mediastinal chest tube, 30 from the right and 10 from the left. No evidence of any air leak. Hemodynamically, the patient's systolic blood pressure is 97 with a diastolic pressure of 56. Cardiac output is at 2.5 with an index of 1.7. Cardiac rhythm is paced at a rate of 83 and the underlying cardiac rhythm is third-degree AV block. Pulmonary artery pressures of 31/19. SVR is elevated. Currently receiving IV albumin 5% a total of 250cc hide the patient will be also started on milrinone.Patient She may also require norepinephrine for blood pressure support. Urine output is adequate at this point in time. In terms of the blood work, the WBC count is at 7.9, hemoglobin 7.3 and a platelet count of 171. BUN is 26 with a creatinine of 0.77 and a sodium levels of 136. The current temperature is at 36. The patient is sitting external warming measures. Calcium level is at 7.3. 02/06/2024, the patient is being seen for a follow-up. The patient is postop day number 1 following mitral valve and tricuspid valve replacement. The patient was weaned off the mechanical ventilator the patient was extubated yesterday and the patient is currently on room air oxygen. she has no significant respiratory distress. The patient is using the incentive spirometer. Chest x-ray from today shows no evidence of any pneumothorax. Chest tubes are still in place. The mediastinal chest tube Produced 550 cc, left pleural produced 300 cc in the right chest tube was produced 250 cc surgery. The patient's output is serosan guineous/bloody. Hemodynamically, the patient underlying cardiac rhythm is stable third-degree AV block. The patient is being paced at a rate of 80. The patient was started on a combination of milrinone and norepinephrine. Norepinephrine was discontinued the patient is currently on milrinone which is running at 0.2 mcg/kg/min. The most recent hemodynamic parameters show a cardiac output of 3.4 with an index of 2.3. PA pressures of 47/70. CVP is at 9. Noted the patient had received 2 units of packed RBC in the operating room. Hemoglobin stable at 9.8 with a white cell count of 9.1. Platelet count is at 129. BUN is 21 with a creatinine of 0.7. Electrolytes are all within normal limits. The patient is afebrile. Awake and alert and communicating. Beta- blockers are still on hold. 02/07/2024, the patient remains extubated, postop day #2, currently on room air oxygen. Cardiac index was up to 3. Milrinone is being weaned off and this will be discontinued. The right pleural and left lower chest tube will be also removed and the mediastinal chest tube will be kept in place. Hemodynamically stable. Producing adequate amount of urine output. Cardiac rhythm remains paced at the rate of 80. Underlying rhythm remains in third-degree AV block. The blood work from today shows a WBC of 9.2, hemoglobin of 8.6 and a platelet count of 113. Serum bicarb is at 19 but is from the 134 and a BUN of 13 with a creatinine of 0.6. The patient also received a dose of Lasix today given to her by the cardiothoracic team. She is off beta-blockers. Utilizing losartan 12.5 mg for blood pressure control. No other significant events. Awake and alert and communicating. No neurological deficits. Patient was evaluated today on 02/08/2024, she is now postoperative day #3. Patient is status post mitral valve replacement and tricuspid valve repair, postoperative day #3. She is on room air, does not seem to be in any distress, she seems to be doing poorly with incentive spirometry. Hemodynamically stable, cardiac output 4.4 cardiac index is 3 patient received Lasix earlier today 20 mg IV push. Patient may need a permanent pacemaker implantation, and that is yet to be decided by cardiology. Continues to have chest tube in place. Evidence of leak, no evidence of pneumothorax on chest x-ray. Patient has an underlying rhythm of third-degree AV block, and again pacemaker placement is pending WBC count is 7.5 hemoglobin 7.7 electrolytes are normal renal profile is normal c hest x-ray showed mostly postoperative changes. No acute process Patient was evaluated today 02/09/2024, patient is in the ICU, she is on room air, she is now postoperative day #4. Mitral valve replacement and tricuspid valve repair, patient is not in any distress, she just came back from the [facility], she had implantation of Micra AV device for complete heart block post mitral valve repair. Patient has no active pulmonary symptoms, no cough no wheezing no shortness of breath no chest pain. Chest x-ray is reassuring. Labs are basically unremarkable hemoglobin is 7.7 otherwise the rest of the labs are basically normal patient is hemodynamically stable, not requiring any pressors or any inotropes. She is achieving 750 mL on her incentive spirometry. Her mediastinal chest tube was discontinued yesterday. Patient was seen today on 02/10/2024, patient continues to do well, remains in the ICU, she is on room air, asymptomatic, patient is paced, had an echocardiogram today showed small pericardial effusion. This x-ray showed no postoperative pleural-parenchymal changes, no evidence of pneumothorax. No evidence of congestive heart failure. Overall the patient is doing great, she is now postoperative day #5 WBC is 10.9 hemoglobin 7.2 electrolytes are normal renal profile is normal liver enzymes are a bit elevated. Patient was seen today on 02/11/2024, patient is feeling better, she has no cough no wheezing no shortness of breath, she does have occasional heartburn and treated with Tums and Maalox. She is also on Protonix twice a day. Patient is achieving 750 mL on her incentive spirometry. She has been ambulating to the bathroom with minimal assistance. All her chest tubes and her epicardial pacemaker wires have been removed. Chest x-ray showed mostly postoperative changes, tiny effusions and scattered pleural-parenchymal density noted no evidence of pneumothorax. Objective - Vital Signs Vital signs: Vital Signs Temp 97.6 F 02/11/24 07:00 Pulse 64 02/11/24 12:05 Resp 16 02/11/24 08:10 BP 111/68 02/11/24 07:00 Pulse Ox 98 02/11/24 07:00 FiO2 40 02/05/24 22:05 Intake & Output 02/10/24 02/11/24 02/11/24 18:59 06:59 18:59 Intake Total 10 30 130 Output Total 200 Balance -190 30 130 Weight 63 kg Intake: IV 10 30 10 Invasive Line 8 10 30 10 Oral 120 Output: Urine 200 Other: Voiding Method Bedside Commode Bedside Commode Bedside Commode # Voids 0 ABP, PAP, CO, CI - Last Documented Arterial Blood Pressure 89/39 Pulmonary Artery Pressure 236/236 Cardiac Output 4.4 Cardiac Index 3 - Exam GENERAL EXAM: 68-year-old in no distress on room air HEAD: Normocephalic and atraumatic EYES: Normal reaction of pupils, equal size. NOSE: Clear with pink turbinates. THROAT: No erythema or exudates. NECK: No masses, no JVD. CHEST: No chest wall deformity. LUNGS: Clear bilaterally no rhonchi no wheezes. CVS: S1 and S2 normal with harsh systolic murmur mainly heard over the left lung apex, regular rhythm. No other extra heart sounds, cardiac rhythmis rate of 80 ABDOMEN: No hepatosplenomegaly, active bowel sounds, no guarding or rigidity. SKIN: No rashes CENTRAL NERVOUS SYSTEM: Alert and oriented x 3 no gross focal neurologic deficit Psychiatric: Normal mood affect and no mental status examination EXTREMITIES: No clubbing edema or cyanosis - Labs CBC & Chem 7: 02/11/24 04:26 02/11/24 04:26 Labs: Abnormal Lab Results - Last 24 Hours (Table) 02/11/24 02/11/24 02/11/24 Range/Units 04:26 04:26 09:43 WBC 11.6 H (3.8-10.6) k/uL RBC 2.39 L (3.80-5.40) m/uL Hgb 7.4 L (11.4-16.0) gm/dL Hct 23.7 L (34.0-46.0) % RDW 18.1 H (11.5-15.5) % Neutrophils # 9.4 H (1.3-7.7) k/uL Sodium 136 L (137-145) mmol/L Carbon Dioxide 20 L (22-30) mmol/L BUN 33 H (7-17) mg/dL Creatinine 1.08 H (0.52-1.04) mg/dL Glucose 58 L (74-99) mg/dL AST 123 H (14-36) U/L ALT 146 H (4-34) U/L Alkaline Phosphatase 150 H (38-126) U/L Total Protein 4.9 L (6.3-8.2) g/dL Albumin 3.2 L (3.5-5.0) g/dL Crossmatch See Detail Assessment and Plan Assessment: Impression: Status post mitral valve replacement and tricuspid valve repair the patient is postop day #6 Status post implantation of Micra AV device for complete heart block postoperative day #1 COPD, recovered from acute COPD exacerbation Postoperative anemia, acute blood loss anemia, expected Anemia, normocytic normochromic Chronic ongoing tobacco dependence, 1 pack/day smoker with over [id number] history History of hyperlipidemia History of hypertension Chronic back pain and she is on Neurontin, and hydrocodone Depression Migraines cephalgia. Smoker Recommendation: Patient is being evaluated for possible rehab at [facility] Continue incentive spirometry Continue medical therapy and supportive care measures Ambulation Continue diuretics intermittently Chest x-ray findings are reassuring today. Will continue to follow Time with Patient: Less than 30
[2024-02-11 14:15] VITALS: BMI 27.1
[2024-02-11 16:19] LABS: Glucose,Whole Blood 120 mg/dL (70-110)
[2024-02-11] MEDS: FUROSEMIDE 10 MG/ML 2 ML VIAL IV ONE (16:57)
--- NOTE | 2024-02-11 17:40 | P.PN ---
Subjective Progress Note Date: 02/11/24 Valvular heart disease This is a 68-year-old female patient was admitted to the hospital with heart failure and she was found to have severe mitral regurgitation and severe tricuspid regurgitation which she was diagnosed with severe symptomatic mitral regurgitation and underwent mitral valve replacement using bioprosthetic valve along with tricuspid valve repair. The surgery itself was uneventful. February 08, 2024 The patient was seen and evaluated this morning. Overall she seems to be stable beside she continues to be bradycardic with third-degree AV block and currently she has a ventricular pacer lead. Otherwise the pressure remains stable. The chest x-ray was reviewed and showed only small right pleural effusion. Her urine output has been marginal and giving that her pressure has been within normal limits and going to give the patient 20 mg of Lasix IV and continue monitor the urine output. Beside that avoid any AV harshil jose agents. The examination is remarkable for regular rhythm with a systolic murmur at the right upper sternal border with diminished breathing sounds bilaterally and no edema was noted in the lower extremities February 09, 2024 The patient was seen and evaluated this morning. She underwent earlier today leadless pacemaker implantation and that was uneventful. Her current heart rate has been in the 60s. She has been feeling nauseated. Beside that she has been experiencing heartburn and she was on PPI but I gave her additional 40 mg of Protonix IV. Otherwise she seems to be stable. The urine output has been marginal and she is in process of having Lasix. The physical examination is remarkable for stable vital signs with distant heart sounds and diminished breathing sounds bilaterally and no edema was noted in the lower extremities February 10, 2024 The patient was seen and evaluated this morning. She seems to be stable beside the heartburn which now she stated that it is better with Tums. I am going to obtain an echocardiogram limited to assess for any pericardial effusion. Otherwise pressure remains soft but stable. Urine output has been normal as well with hemoglobin is stable with the physical examination is remarkable for regular rhythm with diminished breathing sounds bilaterally and no edema was noted in the lower extremities 02/10 Patient has been transferred out of the intensive care unit seen today on the [facility] stepdown unit. Patient had a leadless pacemaker which will be interrogated today. Patient has been ordered for 1 unit of packed RBCs transfusion. Patient continues to have significant GERD despite use of Protonix, Tums. Limited echocardiogram reveals small pericardial effusion. Physical examination is remarkable for regular rhythm with diminished breathing sounds bilaterally and no edema was noted in the lower extremities Assessment Severe symptomatic mitral regurgitation Status post mitral valve replacement and tricuspid valve repair Bradycardia requiring pacing Blood loss anemia appears to be stable Marginally low urine output Multiple comorbid conditions GERD Plan Continue current medical regimen Avoid any AV harshil jose agents Continue monitor the heart rate Add Carafate twice daily Nurse practitioner note has been reviewed, I agree with documented findings and plan of care. Patient was seen and examined. Objective - Vital Signs Vital signs: Vital Signs Temp 97.6 F 02/11/24 07:00 Pulse 55 L 02/11/24 07:00 Resp 16 02/11/24 08:10 BP 111/68 02/11/24 07:00 Pulse Ox 98 02/11/24 07:00 FiO2 40 02/05/24 22:05 Intake & Output 02/10/24 02/11/24 02/11/24 18:59 06:59 18:59 Intake Total 10 30 10 Output Total 200 Balance -190 30 10 Weight 63 kg Intake: IV 10 30 10 Invasive Line 8 10 30 10 Output: Urine 200 Other: Voiding Method Bedside Commode Bedside Commode Bedside Commode # Voids 0 ABP, PAP, CO, CI - Last Documented Arterial Blood Pressure 89/39 Pulmonary Artery Pressure 236/236 Cardiac Output 4.4 Cardiac Index 3 - Labs CBC & Chem 7: 02/11/24 04:26 02/11/24 04:26 Labs: Abnormal Lab Results - Last 24 Hours (Table) 02/11/24 02/11/24 Range/Units 04:26 04:26 WBC 11.6 H (3.8-10.6) k/uL RBC 2.39 L (3.80-5.40) m/uL Hgb 7.4 L (11.4-16.0) gm/dL Hct 23.7 L (34.0-46.0) % RDW 18.1 H (11.5-15.5) % Neutrophils # 9.4 H (1.3-7.7) k/uL Sodium 136 L (137-145) mmol/L Carbon Dioxide 20 L (22-30) mmol/L BUN 33 H (7-17) mg/dL Creatinine 1.08 H (0.52-1.04) mg/dL Glucose 58 L (74-99) mg/dL AST 123 H (14-36) U/L ALT 146 H (4-34) U/L Alkaline Phosphatase 150 H (38-126) U/L Total Protein 4.9 L (6.3-8.2) g/dL Albumin 3.2 L (3.5-5.0) g/dL
--- NOTE | 2024-02-11 20:19 | PN ---
PROGRESS NOTE Blood pressure remains in the low 90s. She was given a unit of blood today for anemia, status post cardiac valve replacement, placement, status post pacemaker placement, acute blood loss anemia. Continue current treatment and wait for blood pressure, which is improved today 167/83, temp 98.2, pulse 61, respiratory rate 18 to 20, hemoglobin is up to 7.4. A unit of blood has been given. Monitor her blood pressures, which appeared to be improved with the blood. Prognosis guarded. MMODL / IJN: [id number] /
[2024-02-11 20:20] LABS: Glucose,Whole Blood 102 mg/dL (70-110)
[2024-02-12 06:08] LABS: Glucose,Whole Blood 94 mg/dL (70-110)
[2024-02-12 06:08] LABS: Anisocytosis Slight; Basophils % (A) 0 %; Eosinophils # (A) 0.1 k/uL (0-0.7); Eosinophils % (A) 1 %; HCT 28.3 % (34.0-46.0); HGB 8.7 gm/dL (11.4-16.0); Hypochromasia Marked; Lymphocytes # (A) 0.8 k/uL (1.0-4.8); Lymphocytes % (A) 6 %; MCH 29.9 pg (25.0-35.0); MCHC 30.6 g/dL (31.0-37.0); MCV 97.5 fL (80.0-100.0); Macrocytosis Slight; Mean Platelet Volume 7.9; Monocytes # (A) 0.6 k/uL (0-1.0); Monocytes % (A) 5 %; Neutrophils # (A) 10.5 k/uL (1.3-7.7); Neutrophils % (A) 86 %; Platelet Count 291 k/uL (150-450); RDW 18.1 % (11.5-15.5); WBC 12.2 k/uL (3.8-10.6)
[2024-02-12 06:18] LABS: ALT 104 U/L (4-34); AST 56 U/L (14-36); African American GFR (CKD) >90 (>60 ml/min/1.73 sqM); Albumin 3.5 g/dL (3.5-5.0); Alkaline Phosphatase 162 U/L (38-126); Anion Gap 9 mmol/L; Blood Urea Nitrogen 25 mg/dL (7-17); Calcium 8.8 mg/dL (8.4-10.2); Carbon Dioxide 24 mmol/L (22-30); Chloride 105 mmol/L (98-107); Glucose 74 mg/dL (74-99); Magnesium 2.9 mg/dL (1.6-2.3); Non-African American GFR(CKD) 89 (>60 ml/min/1.73 sqM); Potassium 4.7 mmol/L (3.5-5.1); Sodium 138 mmol/L (137-145); Total Protein 5.2 g/dL (6.3-8.2)
[2024-02-12 06:20] LABS: ALT 105 U/L (4-34); AST 58 U/L (14-36); African American GFR (CKD) >90 (>60 ml/min/1.73 sqM); Albumin 3.4 g/dL (3.5-5.0); Alkaline Phosphatase 163 U/L (38-126); Anion Gap 7 mmol/L; Blood Urea Nitrogen 25 mg/dL (7-17); Calcium 8.8 mg/dL (8.4-10.2); Carbon Dioxide 25 mmol/L (22-30); Chloride 105 mmol/L (98-107); Glucose 73 mg/dL (74-99); Non-African American GFR(CKD) 89 (>60 ml/min/1.73 sqM); Potassium 4.8 mmol/L (3.5-5.1); Sodium 137 mmol/L (137-145); Total Protein 5.2 g/dL (6.3-8.2)
--- NOTE | 2024-02-12 07:45 | XR ---
EXAMINATION TYPE: XR chest 1V portable DATE OF EXAM: 02/12/2024 HISTORY: Post cardiac surgery COMPARISON: 02/11/2024 TECHNIQUE: Single view of the chest is submitted. FINDINGS: Sternotomy wires noted to be in place as well as left atrial appendage clip and valvular prosthesis. Scattered pleural-parenchymal opacities seen as well as small effusions. No evidence for pneumothorax . There is no evidence for focal infiltrate. The heart is stable. Hilar and mediastinal structures are within normal limits. Degenerative changes are seen of the dorsal spine. IMPRESSION: 1. Stable postoperative appearance of the chest.
[2024-02-12] MEDS: MAG HYDROX/AL HYDROX/SIMETH 30 ML CUP PO PRN (08:08)
[2024-02-12] MEDS: CEPHALEXIN 500 MG CAP PO SCH (09:28)
[2024-02-12] MEDS: FUROSEMIDE 10 MG/ML 2 ML VIAL IV ONE (09:28)
[2024-02-12 11:28] LABS: Glucose,Whole Blood 102 mg/dL (70-110)
[2024-02-12] MEDS: LIDOCAINE VISCOUS 2% 15 ML CUP MUCOUS MEM STA (12:32)
--- NOTE | 2024-02-12 13:06 | P.PN ---
Subjective Progress Note Date: 02/12/24 Principal diagnosis: Severe mitral regurgitation, moderate to severe tricuspid regurgitation, moderate aortic insufficiency per transthoracic echocardiogram, severe pulmonary hypertension, acute heart failure with preserved left ventricular systolic function. History of mild CAD, hyperlipidemia, COPD on home oxygen at night and PRN, recent pneumonia, GERD, previous tobacco dependence, occasional marijuana use, family history of coronary artery disease with mother from myocardial infarction in her 70s POD #7 mitral valve replacement with a 29 mm Hannah Mitris resilia bioprosthetic mitral valve, tricuspid valve repair with a 30 mm Hannah MC 3 ring, clip ligation of the left atrial appendage with a 35 mm AtriClip, intraoperative transesophageal echocardiogram performed by anesthesia Acute blood loss anemia, expected given hemodilution and cardiopulmonary bypass pump. Third degree heart block, unexpected, POD #3 implantation of Micra AV device by Dr. Mead. The patient was seen and examined in follow-up today February 12, 2024 at her bedside on the third floor cardiac stepdown unit. The patient is currently sitting up to the bedside chair, is awake, alert, oriented x 3 and is in no acute apparent distress. Patient denies any complaints of shortness of breath or pain at this time, although continues to complain of some episodes of heartburn. She remains hemodynamically stable and is currently on no inotropic or pressor support. Oxygen saturations are 96% on room air and she is achieving 750 mL on her incentive spirometry with encouragement. She has been up ambulating in the hallway with standby assist from nursing and therapy staff and tolerating well. Remote telemetry is showing third-degree heart block with occasional paced beats heart rate in the 60s. Her Micra device pacemaker was adjusted by the [employer] rep yesterday. Discharge planning is in place, laboratory and chest x-ray results were reviewed. She did receive 1 unit of packed red blood cells yesterday for hemoglobin of 7.4 and her hemoglobin today is 8.7. Objective - Vital Signs Vital signs: Vital Signs Temp 98.0 F 02/12/24 08:06 Pulse 95 02/12/24 10:07 Resp 16 02/12/24 08:06 BP 99/64 02/12/24 09:38 Pulse Ox 99 02/12/24 08:06 FiO2 40 02/05/24 22:05 Intake & Output 02/11/24 02/12/24 02/12/24 18:59 06:59 18:59 Intake Total 460 30 10 Output Total 400 1200 Balance 60 -1170 10 Weight 63 kg 64.3 kg Intake: IV 30 30 10 Invasive Line 8 30 30 10 Oral 120 Blood Product 310 Rc As-1 Unit 310 [id number] Output: Urine 400 1200 Other: Voiding Method Bedside Commode Bedside Commode Bedside Commode # Voids 1 ABP, PAP, CO, CI - Last Documented Arterial Blood Pressure 89/39 Pulmonary Artery Pressure 236/236 Cardiac Output 4.4 Cardiac Index 3 - Exam CONSTITUTIONAL: Appears comfortable, cooperative, no acute distress RESPIRATORY: Lungs sounds diminished to her bilateral bases. Respirations symmetrical, nonlabored. Currently on room air with oxygen saturation 96%. Able to achieve 750 mL on incentive spirometry. Strong cough. CARDIOVASCULAR: S1, S2 present, negative for S3 or gallop. Regular rate and rhythm. Sternum stable. Palpable peripheral pulses bilaterally. No edema present. No calf pain or tenderness noted. Heart hugger in place with patient demonstrating appropriate use. Antiembolism stockings, SCDs present. GASTROINTESTINAL: Abdomen soft, nontender, nondistended. Active bowel sounds present 4 quadrants. Tolerating minimal diet. Bowel movement yesterday February 11, 2024. Passing flatus. Heartburn. GENITOURINARY: Continues to void. Urine output 800 mL in the last 8 hours. INTEGUMENTARY: Skin is warm and dry, no clubbing or cyanosis is present. Midline sternal chest incision well approximated and covered with dry intact dressing. Some sera-incisional ecchymosis. Bilateral groin puncture sites clean and dry. NEUROLOGIC: Cranial nerves II through XII intact. No focal deficits. MUSKULOSKELETAL: Able to move all extremities, strength equal bilaterally. PSYCHIATRIC: Alert and oriented to person place and time, appropriate affect, intact judgment and insight. - Allied health notes Allied health notes reviewed: nursing - Labs CBC & Chem 7: 02/12/24 05:46 02/12/24 05:46 Labs: Abnormal Lab Results - Last 24 Hours (Table) 02/11/24 02/11/24 02/12/24 Range/Units 09:43 16:18 05:46 WBC (3.8-10.6) k/uL RBC (3.80-5.40) m/uL Hgb (11.4-16.0) gm/dL Hct (34.0-46.0) % MCHC (31.0-37.0) g/dL RDW (11.5-15.5) % Neutrophils # (1.3-7.7) k/uL Lymphocytes # (1.0-4.8) k/uL BUN 25 H (7-17) mg/dL Glucose (74-99) mg/dL POC Glucose (mg/dL) 120 H (70-110) mg/dL Magnesium 2.9 H (1.6-2.3) mg/dL AST 56 H (14-36) U/L ALT 104 H (4-34) U/L Alkaline Phosphatase 162 H (38-126) U/L Total Protein 5.2 L (6.3-8.2) g/dL Albumin (3.5-5.0) g/dL Crossmatch See Detail 02/12/24 02/12/24 Range/Units 05:46 05:46 WBC 12.2 H (3.8-10.6) k/uL RBC 2.90 L (3.80-5.40) m/uL Hgb 8.7 L (11.4-16.0) gm/dL Hct 28.3 L (34.0-46.0) % MCHC 30.6 L (31.0-37.0) g/dL RDW 18.1 H (11.5-15.5) % Neutrophils # 10.5 H (1.3-7.7) k/uL Lymphocytes # 0.8 L (1.0-4.8) k/uL BUN 25 H (7-17) mg/dL Glucose 73 L (74-99) mg/dL POC Glucose (mg/dL) (70-110) mg/dL Magnesium (1.6-2.3) mg/dL AST 58 H (14-36) U/L ALT 105 H (4-34) U/L Alkaline Phosphatase 163 H (38-126) U/L Total Protein 5.2 L (6.3-8.2) g/dL Albumin 3.4 L (3.5-5.0) g/dL Crossmatch - Imaging and Cardiology Chest x-ray: report reviewed, image reviewed Assessment and Plan Assessment: Severe mitral regurgitation, moderate to severe tricuspid regurgitation per ENRIQUE, status post mitral valve replacement, tricuspid valve repair Severe pulmonary hypertension Acute heart failure with preserved left ventricular systolic function, EF 55-60% Third-degree heart block, status post implantation of Micra AV device by Dr. Mead History of mild coronary artery disease Hyperlipidemia, treated COPD on home oxygen at night and PRN Recent pneumonia GERD Previous tobacco dependence, quit 1 month ago, [id number] history Occasional marijuana use Family history of coronary artery disease with mother from myocardial infarction in her 70s Plan: Continue to maximize medical therapy with aspirin, statin, Plavix. Continue to hold beta jose. Continue low dose losartan for afterload reduction. Encourage incentive spirometry use 10 times every hour while awake. Bronchodilators per pulmonology. Increase activity, ambulate as tolerated. PT/OT/cardiac rehab following. Will monitor daily labs and chest x-rays. Electrolyte replacement per protocol. Lasix 20 mg IV x 1 now.. Transfuse 1 unit of PRBCs for hemoglobin of 7.4, albumin 5% 250 milliliters 1 now, after the 1 unit of PRBCs has been transfused Lasix 20 mg 1. GI/DVT prophylaxis. Pain control per current medication regimen. Insulin management per internal medicine. Patient is not diabetic, preoperative hemoglobin A1c 5.1%. Continue to monitor strict accurate intake and output. Daily weights. Discharge planning is in place, anticipate discharge to [facility] rehab on Thursday, February 15, 2024. Shower daily. General surgery consulted to evaluate patient's episodes of heartburn. Keflex 500 mg p.o. twice daily x 5 days initiated for treatment of some phlebitis. More recommendations to follow based on patient's clinical course. Time with Patient: Greater than 30
--- NOTE | 2024-02-12 13:06 | P.PN ---
Subjective Progress Note Date: 02/12/24 Valvular heart disease This is a 68-year-old female patient was admitted to the hospital with heart failure and she was found to have severe mitral regurgitation and severe tricuspid regurgitation which she was diagnosed with severe symptomatic mitral regurgitation and underwent mitral valve replacement using bioprosthetic valve along with tricuspid valve repair. The surgery itself was uneventful. February 08, 2024 The patient was seen and evaluated this morning. Overall she seems to be stable beside she continues to be bradycardic with third-degree AV block and currently she has a ventricular pacer lead. Otherwise the pressure remains stable. The chest x-ray was reviewed and showed only small right pleural effusion. Her urine output has been marginal and giving that her pressure has been within normal limits and going to give the patient 20 mg of Lasix IV and continue monitor the urine output. Beside that avoid any AV harshil jose agents. The examination is remarkable for regular rhythm with a systolic murmur at the right upper sternal border with diminished breathing sounds bilaterally and no edema was noted in the lower extremities February 09, 2024 The patient was seen and evaluated this morning. She underwent earlier today leadless pacemaker implantation and that was uneventful. Her current heart rate has been in the 60s. She has been feeling nauseated. Beside that she has been experiencing heartburn and she was on PPI but I gave her additional 40 mg of Protonix IV. Otherwise she seems to be stable. The urine output has been marginal and she is in process of having Lasix. The physical examination is remarkable for stable vital signs with distant heart sounds and diminished breathing sounds bilaterally and no edema was noted in the lower extremities February 10, 2024 The patient was seen and evaluated this morning. She seems to be stable beside the heartburn which now she stated that it is better with Tums. I am going to obtain an echocardiogram limited to assess for any pericardial effusion. Otherwise pressure remains soft but stable. Urine output has been normal as well with hemoglobin is stable with the physical examination is remarkable for regular rhythm with diminished breathing sounds bilaterally and no edema was noted in the lower extremities 02/10 Patient has been transferred out of the intensive care unit seen today on the [facility] stepdown unit. Patient had a leadless pacemaker which will be interrogated today. Patient has been ordered for 1 unit of packed RBCs transfusion. Patient continues to have significant GERD despite use of Protonix, Tums. Limited echocardiogram reveals small pericardial effusion. Physical examination is remarkable for regular rhythm with diminished breathing sounds bilaterally and no edema was noted in the lower extremities 02/11 Pacemaker was interrogated yesterday and threshold was increased to 60. Yesterday, we added Carafate for heartburn. Patient continues to have heartburn despite current medications. Patient is anticipating discharge home today. Physical examination is remarkable for regular rhythm with diminished breathing sounds bilaterally and no edema was noted in the lower extremities Assessment Severe symptomatic mitral regurgitation Status post mitral valve replacement and tricuspid valve repair Bradycardia requiring pacing Blood loss anemia appears to be stable Marginally low urine output Multiple comorbid conditions GERD Plan Continue current medical regimen Avoid any AV harshil jose agents Continue monitor the heart rate Continue Carafate twice daily Patient is cleared for discharge from cardiology May follow-up in the office in 1 to 2 weeks. Nurse practitioner note has been reviewed, I agree with documented findings and plan of care. Patient was seen and examined. Objective - Vital Signs Vital signs: Vital Signs Temp 98.3 F 02/12/24 11:15 Pulse 88 02/12/24 11:15 Resp 18 02/12/24 11:15 BP 117/68 02/12/24 11:15 Pulse Ox 98 02/12/24 11:15 FiO2 40 02/05/24 22:05 Intake & Output 02/11/24 02/12/24 02/12/24 18:59 06:59 18:59 Intake Total 460 30 110 Output Total 400 1200 800 Balance 60 -1170 -690 Weight 63 kg 64.3 kg Intake: IV 30 30 10 Invasive Line 8 30 30 10 Intake, IV Titration 100 Amount Sodium Ferric Gluconat- 100 Sucrose 125 mg In Sodium Chloride 0.9% 100 ml @ 100 mls/hr IVPB DAILY [facility] Rx#:[id number] Oral 120 Blood Product 310 Rc As-1 Unit 310 [id number] Output: Urine 400 1200 800 Other: Voiding Method Bedside Commode Bedside Commode Bedside Commode # Voids 1 2 # Bowel Movements 1 ABP, PAP, CO, CI - Last Documented Arterial Blood Pressure 89/39 Pulmonary Artery Pressure 236/236 Cardiac Output 4.4 Cardiac Index 3 - Labs CBC & Chem 7: 02/12/24 05:46 02/12/24 05:46 Labs: Abnormal Lab Results - Last 24 Hours (Table) 02/11/24 02/11/24 02/12/24 Range/Units 09:43 16:18 05:46 WBC (3.8-10.6) k/uL RBC (3.80-5.40) m/uL Hgb (11.4-16.0) gm/dL Hct (34.0-46.0) % MCHC (31.0-37.0) g/dL RDW (11.5-15.5) % Neutrophils # (1.3-7.7) k/uL Lymphocytes # (1.0-4.8) k/uL BUN 25 H (7-17) mg/dL Glucose (74-99) mg/dL POC Glucose (mg/dL) 120 H (70-110) mg/dL Magnesium 2.9 H (1.6-2.3) mg/dL AST 56 H (14-36) U/L ALT 104 H (4-34) U/L Alkaline Phosphatase 162 H (38-126) U/L Total Protein 5.2 L (6.3-8.2) g/dL Albumin (3.5-5.0) g/dL Crossmatch See Detail 02/12/24 02/12/24 Range/Units 05:46 05:46 WBC 12.2 H (3.8-10.6) k/uL RBC 2.90 L (3.80-5.40) m/uL Hgb 8.7 L (11.4-16.0) gm/dL Hct 28.3 L (34.0-46.0) % MCHC 30.6 L (31.0-37.0) g/dL RDW 18.1 H (11.5-15.5) % Neutrophils # 10.5 H (1.3-7.7) k/uL Lymphocytes # 0.8 L (1.0-4.8) k/uL BUN 25 H (7-17) mg/dL Glucose 73 L (74-99) mg/dL POC Glucose (mg/dL) (70-110) mg/dL Magnesium (1.6-2.3) mg/dL AST 58 H (14-36) U/L ALT 105 H (4-34) U/L Alkaline Phosphatase 163 H (38-126) U/L Total Protein 5.2 L (6.3-8.2) g/dL Albumin 3.4 L (3.5-5.0) g/dL Crossmatch
--- NOTE | 2024-02-12 14:10 | P.PN ---
Subjective Progress Note Date: 02/12/24 Principal diagnosis: Severe symptomatic mitral regurgitation, status post mitral valve replacement and tricuspid valve repair Patient is a 68-year-old female with past medical history significant for COPD, chronic oxygen dependence, chronic ongoing tobacco dependence, hyperlipidemia, hypertension, among other things. Patient reports over the past 1 month she has had 3 episodes of what she attributed to be panic attacks. She was acutely short of breath followed by anxiety. Of note, also had multiple episodes of syncope over the last few months. On December she was evaluated at [facility]. Reportedly underwent heart catheterization, I do not believe she received any percutaneous coronary intervention. She was found to have significant valvular heart disease on transthoracic echocardiogram, official results are not available to me at this time.. Reported affected valves include severe mitral regurgitation and at least moderate to severe aort ic regurgitation. Yesterday, patient was transferred to [facility] for ENRIQUE and cardiothoracic surgery consult. Patient is currently in the intensive care unit room 263. She is sitting up in bed on 3 L/min nasal cannula. SpO2 is 100% at rest. Not in any respiratory distress. Reportedly normally wears 2 to 3 L nasal cannula at bedtime. She does have history of COPD and normally utilizes a combination of Trelegy maintenance inhaler and albuterol nebs. She still smokes approximately 1 pack/day. She is wheezing. Denies any infectious symptoms. No change in chronic cough, sputum production, chest pain, fever. We are waiting on chest x-ray. Currently on a combination of Pulmicort, DuoNebs, and IV Solu-Medrol. CBC from outside facility: WBC count 10, hemoglobin 9.9, hematocrit 30.8, platelets 202. BMP from outside facility includes a sodium 143, potassium 4.2, chloride 108, serum bicarb 32, BUN 15, creatinine 0.88, glucose 100. Troponins were mildly elevated. Hemodynamics are stable. On today's evaluation of 02/03/2024, I am seeing the patient for a follow-up. The patient is currently on room air oxygen. ENRIQUE was completed was found to have severe mitral regurgitation, in addition to reversal of flow in the pulmonary veins as well as dilated left atrium and moderate to severe tricuspid regurgitation. Her current cardiac rhythm remains sinus. The patient is hemodynamic stable on room air oxygen. The patient is on DuoNeb nebulized treatments [id number]. The patient is also on IV Solu-Medrol regarding COPD and a dose of 40 mg every 8 hours. Most recent chest x-ray from yesterday showed some mild pulm vascular congestion. Carotid Dopplers showed no critically abnormal stenosis involving the coronary arteries. The patient is awaiting recommendations from cardiothoracic surgery regarding valve surgery. The patient is edentulous. No new labs are available from today. Medications remain unchanged and the patient is currently on Lasix 40 mg p.o. daily the patient is also on metoprolol 75 mg p.o. daily. She is on Celexa and Wellbutrin regarding history of depression. On today's evaluation of 02/04/2024, the patient is being seen for a follow-up. Patient is doing well. She was transferred out of the intensive care unit [facility]. The plan is to proceed with cardiac surgery in the morning. The patient has severe mitral regurgitation and this has been confirmed by ENRIQUE. The patient is scheduled to undergo surgery with mitral valve repair/possible replacement in a.m. on 02/05/2024. The patient is currently on room air oxygen. No signs of any fluid overload. No cardiac arrhythmias. No chest pain. No significant justin rtness of breath. The white cell count is 12.5 with a hemoglobin 12.1 and a platelet count of 435. Normal coagulation profile. BUN is 36 with a creatinine of 1 and sodium is at 137 and serum bicarbonate 31. LDL cholesterol is at 223. 02/05/2024, the patient is being seen in the intensive care unit immediately after she arrived to the ICU. At this point in time, the patient is sedated and she is on propofol which is at 35 mcg/kg/min. She is well sedated and she is calm and comfortable. She is currently on assist-control mode of mechanical ventilation at a rate of 14, tidal volume of 350, FiO2 of 100% and a PEEP of 5. Initial blood gases showed a pH of 7.30 with a pCO2 of 49 and pO2 of 422. Based on that, the FiO2 has been dropped down to 50% and I increased the rate up to 20. Chest x-ray was noted and there is no evidence of any pneumothorax. ET tube is in a good location. Duson-Luis catheter ideally needs to be advanced by a centimeter. The patient has right-sided chest tube, left-sided chest tube and a mediastinal chest tube. Output from the chest was of been noted. The patient has produced approximately 40 cc of bloody material from the mediastinal chest tube, 30 from the right and 10 from the left. No evidence of any air leak. Hemodynamically, the patient's systolic blood pressure is 97 with a diastolic pressure of 56. Cardiac output is at 2.5 with an index of 1.7. Cardiac rhythm is paced at a rate of 83 and the underlying cardiac rhythm is third-degree AV block. Pulmonary artery pressures of 31/19. SVR is elevated. Currently receiving IV albumin 5% a total of 250cc hide the patient will be also started on milrinone.Patient She may also require norepinephrine for blood pressure support. Urine output is adequate at this point in time. In terms of the blood work, the WBC count is at 7.9, hemoglobin 7.3 and a platelet count of 171. BUN is 26 with a creatinine of 0.77 and a sodium levels of 136. The current temperature is at 36. The patient is sitting external warming measures. Calcium level is at 7.3. 02/06/2024, the patient is being seen for a follow-up. The patient is postop day number 1 following mitral valve and tricuspid valve replacement. The patient was weaned off the mechanical ventilator the patient was extubated yesterday and the patient is currently on room air oxygen. she has no significant respiratory distress. The patient is using the incentive spirometer. Chest x-ray from today shows no evidence of any pneumothorax. Chest tubes are still in place. The mediastinal chest tube Produced 550 cc, left pleural produced 300 cc in the right chest tube was produced 250 cc surgery. The patient's output is serosan guineous/bloody. Hemodynamically, the patient underlying cardiac rhythm is stable third-degree AV block. The patient is being paced at a rate of 80. The patient was started on a combination of milrinone and norepinephrine. Norepinephrine was discontinued the patient is currently on milrinone which is running at 0.2 mcg/kg/min. The most recent hemodynamic parameters show a cardiac output of 3.4 with an index of 2.3. PA pressures of 47/70. CVP is at 9. Noted the patient had received 2 units of packed RBC in the operating room. Hemoglobin stable at 9.8 with a white cell count of 9.1. Platelet count is at 129. BUN is 21 with a creatinine of 0.7. Electrolytes are all within normal limits. The patient is afebrile. Awake and alert and communicating. Beta- blockers are still on hold. 02/07/2024, the patient remains extubated, postop day #2, currently on room air oxygen. Cardiac index was up to 3. Milrinone is being weaned off and this will be discontinued. The right pleural and left lower chest tube will be also removed and the mediastinal chest tube will be kept in place. Hemodynamically stable. Producing adequate amount of urine output. Cardiac rhythm remains paced at the rate of 80. Underlying rhythm remains in third-degree AV block. The blood work from today shows a WBC of 9.2, hemoglobin of 8.6 and a platelet count of 113. Serum bicarb is at 19 but is from the 134 and a BUN of 13 with a creatinine of 0.6. The patient also received a dose of Lasix today given to her by the cardiothoracic team. She is off beta-blockers. Utilizing losartan 12.5 mg for blood pressure control. No other significant events. Awake and alert and communicating. No neurological deficits. Patient was evaluated today on 02/08/2024, she is now postoperative day #3. Patient is status post mitral valve replacement and tricuspid valve repair, postoperative day #3. She is on room air, does not seem to be in any distress, she seems to be doing poorly with incentive spirometry. Hemodynamically stable, cardiac output 4.4 cardiac index is 3 patient received Lasix earlier today 20 mg IV push. Patient may need a permanent pacemaker implantation, and that is yet to be decided by cardiology. Continues to have chest tube in place. Evidence of leak, no evidence of pneumothorax on chest x-ray. Patient has an underlying rhythm of third-degree AV block, and again pacemaker placement is pending WBC count is 7.5 hemoglobin 7.7 electrolytes are normal renal profile is normal c hest x-ray showed mostly postoperative changes. No acute process Patient was evaluated today 02/09/2024, patient is in the ICU, she is on room air, she is now postoperative day #4. Mitral valve replacement and tricuspid valve repair, patient is not in any distress, she [facility], she had implantation of Micra AV device for complete heart block post mitral valve repair. Patient has no active pulmonary symptoms, no cough no wheezing no shortness of breath no chest pain. Chest x-ray is reassuring. Labs are basically unremarkable hemoglobin is 7.7 otherwise the rest of the labs are basically normal patient is hemodynamically stable, not requiring any pressors or any inotropes. She is achieving 750 mL on her incentive spirometry. Her mediastinal chest tube was discontinued yesterday. Patient was seen today on 02/10/2024, patient continues to do well, remains in the ICU, she is on room air, asymptomatic, patient is paced, had an echocardiogram today showed small pericardial effusion. This x-ray showed no postoperative pleural-parenchymal changes, no evidence of pneumothorax. No evidence of congestive heart failure. Overall the patient is doing great, she is now postoperative day #5 WBC is 10.9 hemoglobin 7.2 electrolytes are normal renal profile is normal liver enzymes are a bit elevated. Patient was seen today on 02/11/2024, patient is feeling better, she has no cough no wheezing no shortness of breath, she does have occasional heartburn and treated with Tums and Maalox. She is also on Protonix twice a day. Patient is achieving 750 mL on her incentive spirometry. She has been ambulating to the bathroom with minimal assistance. All her chest tubes and her epicardial pacemaker wires have been removed. Chest x-ray showed mostly postoperative changes, tiny effusions and scattered pleural-parenchymal density noted no evidence of pneumothorax. Patient was seen today on 02/12/2024, patient is doing great, on room air, does not seem to be in any distress, continues to have symptoms of severe GERD. Patient did receive a unit of packed RBCs yesterday for hemoglobin of 7.4, patient to be seen by gastroenterology regarding her persistent GERD. Celso clifford she is doing great, asymptomatic, no cough no wheezing no shortness of breath CBC today is relatively normal hemoglobin is 8.7 basic metabolic profile is normal, chest x-ray showed minimal basilar atelectasis, no evidence of congestive heart failure small left pleural effusion is noted. Objective - Vital Signs Vital signs: Vital Signs Temp 98.3 F 02/12/24 11:15 Pulse 96 02/12/24 13:06 Resp 18 02/12/24 11:15 BP 117/68 02/12/24 11:15 Pulse Ox 98 02/12/24 11:15 FiO2 40 02/05/24 22:05 Intake & Output 02/11/24 02/12/24 02/12/24 18:59 06:59 18:59 Intake Total 460 30 210 Output Total 400 1200 800 Balance 60 -1170 -590 Weight 63 kg 64.3 kg Intake: IV 30 30 10 Invasive Line 8 30 30 10 Intake, IV Titration 100 Amount Sodium Ferric Gluconat- 100 Sucrose 125 mg In Sodium Chloride 0.9% 100 ml @ 100 mls/hr IVPB DAILY [facility] Rx#:[id number] Oral 120 100 Blood Product 310 Rc As-1 Unit 310 [id number] Output: Urine 400 1200 800 Other: Voiding Method Bedside Commode Bedside Commode Bedside Commode # Voids 1 2 # Bowel Movements 1 ABP, PAP, CO, CI - Last Documented Arterial Blood Pressure 89/39 Pulmonary Artery Pressure 236/236 Cardiac Output 4.4 Cardiac Index 3 - Exam GENERAL EXAM: 68-year-old in no distress on room air HEAD: Normocephalic and atraumatic EYES: Normal reaction of pupils, equal size. NOSE: Clear with pink turbinates. THROAT: No erythema or exudates. NECK: No masses, no JVD. CHEST: No chest wall deformity. LUNGS: Clear bilaterally no rhonchi no wheezes. CVS: S1 and S2 normal with harsh systolic murmur mainly heard over the left lung apex, regular rhythm. No other extra heart sounds, cardiac rhythmis rate of 80 ABDOMEN: No hepatosplenomegaly, active bowel sounds, no guarding or rigidity. SKIN: No rashes CENTRAL NERVOUS SYSTEM: Alert and oriented x 3 no gross focal neurologic deficit Psychiatric: Normal mood affect and no mental status examination EXTREMITIES: No clubbing edema or cyanosis - Labs CBC & Chem 7: 02/12/24 05:46 02/12/24 05:46 Labs: Abnormal Lab Results - Last 24 Hours (Table) 02/11/24 02/11/24 02/12/24 Range/Units 09:43 16:18 05:46 WBC (3.8-10.6) k/uL RBC (3.80-5.40) m/uL Hgb (11.4-16.0) gm/dL Hct (34.0-46.0) % MCHC (31.0-37.0) g/dL RDW (11.5-15.5) % Neutrophils # (1.3-7.7) k/uL Lymphocytes # (1.0-4.8) k/uL BUN 25 H (7-17) mg/dL Glucose (74-99) mg/dL POC Glucose (mg/dL) 120 H (70-110) mg/dL Magnesium 2.9 H (1.6-2.3) mg/dL AST 56 H (14-36) U/L ALT 104 H (4-34) U/L Alkaline Phosphatase 162 H (38-126) U/L Total Protein 5.2 L (6.3-8.2) g/dL Albumin (3.5-5.0) g/dL Crossmatch See Detail 02/12/24 02/12/24 Range/Units 05:46 05:46 WBC 12.2 H (3.8-10.6) k/uL RBC 2.90 L (3.80-5.40) m/uL Hgb 8.7 L (11.4-16.0) gm/dL Hct 28.3 L (34.0-46.0) % MCHC 30.6 L (31.0-37.0) g/dL RDW 18.1 H (11.5-15.5) % Neutrophils # 10.5 H (1.3-7.7) k/uL Lymphocytes # 0.8 L (1.0-4.8) k/uL BUN 25 H (7-17) mg/dL Glucose 73 L (74-99) mg/dL POC Glucose (mg/dL) (70-110) mg/dL Magnesium (1.6-2.3) mg/dL AST 58 H (14-36) U/L ALT 105 H (4-34) U/L Alkaline Phosphatase 163 H (38-126) U/L Total Protein 5.2 L (6.3-8.2) g/dL Albumin 3.4 L (3.5-5.0) g/dL Crossmatch Assessment and Plan Assessment: Impression: Status post mitral valve replacement and tricuspid valve repair the patient is postop day #7 Status post implantation of Micra AV device for complete heart block postoperative day #2 COPD, recovered from acute COPD exacerbation Postoperative anemia, acute blood loss anemia, expected Anemia, normocytic normochromic Chronic ongoing tobacco dependence, 1 pack/day smoker with over [id number] history History of hyperlipidemia History of hypertension Chronic back pain and she is on Neurontin, and hydrocodone Depression Migraines cephalgia. Smoker Recommendation: Patient to be seen by gastroenterology regarding her GERD symptoms not improving in spite of medical treatment Patient is being evaluated for possible rehab at [facility] Continue incentive spirometry Continue medical therapy and supportive care measures Ambulation Chest x-ray findings are reassuring today. Will continue to follow Time with Patient: Less than 30
[2024-02-12 16:20] LABS: Appearance,Urine Clear (Clear); Bilirubin,Urine Negative (Negative); Blood,Urine Negative (Negative); Color,Urine Colorless; Glucose,Urine (UA) Negative (Negative); Ketones,Urine Negative (Negative); Leukocyte Esterase,Urine Negative (Negative); Nitrite,Urine Negative (Negative); PH, Urine 5.5 (5.0-8.0); Protein,Urine Negative (Negative); Specific Gravity,Urine 1.009 (1.001-1.035); Urobilinogen,Urine <2.0 mg/dL (<2.0)
--- NOTE | 2024-02-12 16:23 | P.GSCN ---
History of Present Illness History of present illness: Patient with past medical history significant for COPD, chronic oxygen dependence, chronic ongoing tobacco dependence, hyperlipidemia, hypertension, among other things. Patient reports over the past 1 month she has had 3 episodes of what she attributed to be panic attacks. She was acutely short of breath followed by anxiety. Of note, also had multiple episodes of syncope over the last few months. On December she was evaluated at [facility]. Reportedly underwent heart catheterization, She was found to have significant valvular heart disease on transthoracic echocardiogram. Reported affected valves include severe mitral regurgitation and at least moderate to se jaren aortic regurgitation. Yesterday, patient was transferred to [facility] for ENRIQUE and cardiothoracic surgery consult. Troponins were mildly elevated. ENRIQUE was completed was found to have severe mitral regurgitation, in addition to reversal of flow in the pulmonary veins as well as dilated left atrium and moderate to severe tricuspid regurgitation. Her current cardiac rhythm remains sinus. The patient is hemodynamic stable on room air oxygen. Most recent chest x-ray from yesterday showed some mild pulm vascular congestion. Carotid Dopplers showed no critically abnormal stenosis involving the coronary arteries. The patient is awaiting recommendations from cardiothoracic surgery regarding valve surgery. The patient is scheduled to undergo surgery with mitral valve repair/possible replacement in a.m. on 02/05/2024. Chest x-ray was noted and there is no evidence of any pneumothorax. Cardiac rhythm is paced at a rate of 83 and the underlying cardiac rhythm is third-degree AV block, pending pacemaker placement. WBC count is at 7.9, hemoglobin 7.3 and a platelet count of 171. BUN is 26 with a creatinine of 0.77 and a sodium levels of 136. The patient was weaned off the mechanical ventilator the patient was extubated 02/05/24. The patient had received 2 units of packed RBC in the operating room. 02/09/24 pacemaker placed. general surgery was consulted for epigastric pain patient states that she can't take a simple bite of cheese without having epigastric plain/GERD. This is acute and only happen since been in the hospital. She is currently on Protonix twice a day. Review of Systems - Constitutional Reports as per HPI Past Medical History Past Medical History: Coronary Artery Disease (CAD), COPD, Hyperlipidemia, Syncope Additional Past Medical History / Comment(s): HAD PNEUMONIA ABOUT 2 WEEKS AGO History of Any Multi-Drug Resistant Organisms: None Reported Past Surgical History: Back Surgery, Section, Heart Catheterization, Tubal Ligation Additional Past Surgical History / Comment(s): L4-L5 decompression Past Anesthesia/Blood Transfusion Reactions: No Reported Reaction Past Psychological History: Depression Smoking Status: Former smoker Past Alcohol Use History: None Reported Past Drug Use History: Marijuana Additional Drug Use History / Comment(s): Occasional marijuana Gummies - Past Family History Mother Family Medical History: Myocardial Infarction ([place]) Additional Family Medical History / Comment(s): Mother at age 78 from myocardial infarction with history of pneumonia, 3 vessel CABG. Father Additional Family Medical History / Comment(s): Patient recently found out that the man who raised her was not her biological father, unknown history of biological father Brother(s) Additional Family Medical History / Comment(s): Patient has 2 brothers and one has known spinal stenosis. Patient has 2 sisters and one has Crohn's and one has Edvin-Vieira. Patient has one daughter with Crohn's disease. Medications and Allergies Home Medications Medication Instructions Recorded Confirmed Type Citalopram Hydrobromide 40 mg PO DAILY 12/26/22 02/01/24 History [Citalopram HBr] Cyanocobalamin (Vitamin B-12) 1,000 mcg PO DAILY 12/26/22 02/01/24 History [Vitamin B-12] Fluticasone/Umeclidin/Vilanter 1 puff INHALATION RT-DAILY 12/26/22 02/01/24 History [Trelegy Ellipta 200-62.5-25] Gabapentin [Neurontin] 600 mg PO TID 12/26/22 02/01/24 History Glycopyrrolate 1 mg PO TID 12/26/22 02/01/24 History HYDROcodone/APAP 10-325MG [[place] 1 tab PO TID 12/26/22 02/01/24 History 10-325] Lovastatin [Mevacor] 20 mg PO HS 12/26/22 02/01/24 History Omeprazole [PriLOSEC] 40 mg PO DAILY 12/26/22 02/01/24 History buPROPion SR [Wellbutrin SR] 150 mg PO BID 12/26/22 02/01/24 History traZODone HCL 200 mg PO HS PRN 12/26/22 02/01/24 History valACYclovir HCL [Valtrex] 1,000 mg PO DAILY PRN 12/26/22 02/01/24 History Citalopram Hydrobromide [CeleXA] 20 mg PO DAILY 02/05/23 02/01/24 History Ipratropium-Albuterol Nebulize 3 ml INHALATION RT-QID PRN 02/05/23 02/01/24 History [Duoneb 0.5 mg-3 mg/3 ml Soln] ALPRAZolam [Xanax] 0.25 mg PO Q6H PRN 02/01/24 02/01/24 History Brexpiprazole [Rexulti] 1 mg PO DAILY 02/01/24 02/01/24 History Cholecalciferol (Vitamin D3) 50 mcg PO DAILY 02/01/24 02/01/24 History [Vitamin D3 (50 Mcg = 2000 Iu)] Dextroamphetamine/Amphetamine 10 mg PO BID@0700,1400 02/01/24 02/01/24 History [Adderall] Folic Acid 1 mg PO DAILY 02/01/24 02/01/24 History Glycopyrrolate [Robinul] 1 mg PO TID 02/01/24 02/01/24 History Lactulose 20 gm PO DAILY 02/01/24 02/01/24 History Metoprolol Succinate (ER) [Toprol 50 mg PO DAILY 02/01/24 02/01/24 History Xl] Allergies Allergy/AdvReac Type Severity Reaction Status Date / Time amoxicillin [From Augmentin] AdvReac Nausea & Verified 02/05/24 06:45 Vomiting clavulanic acid AdvReac Nausea & Verified 02/05/24 06:45 [From Augmentin] Vomiting Surgical - Exam Osteopathic Statement: *. No significant issues noted on an osteopathic structural exam other than those noted in the History and Physical/Consult. Vital Signs Pulse Resp BP Pulse Ox 63 16 104/69 100 02/01/24 15:46 02/01/24 15:46 02/01/24 15:46 02/01/24 15:46 - General gen: nad cv: rrr pul: non labored breathing abd: soft,tender to palpation an epigastric region, no guarding or rebound tenderness Results - Labs 02/12/24 05:46 02/12/24 05:46 Abnormal Lab Results - Last 24 Hours (Table) 02/11/24 02/12/24 02/12/24 Range/Units 09:43 05:46 05:46 WBC 12.2 H (3.8-10.6) k/uL RBC 2.90 L (3.80-5.40) m/uL Hgb 8.7 L (11.4-16.0) gm/dL Hct 28.3 L (34.0-46.0) % MCHC 30.6 L (31.0-37.0) g/dL RDW 18.1 H (11.5-15.5) % Neutrophils # 10.5 H (1.3-7.7) k/uL Lymphocytes # 0.8 L (1.0-4.8) k/uL BUN 25 H (7-17) mg/dL Glucose (74-99) mg/dL Magnesium 2.9 H (1.6-2.3) mg/dL AST 56 H (14-36) U/L ALT 104 H (4-34) U/L Alkaline Phosphatase 162 H (38-126) U/L Total Protein 5.2 L (6.3-8.2) g/dL Albumin (3.5-5.0) g/dL Crossmatch See Detail 02/12/24 Range/Units 05:46 WBC (3.8-10.6) k/uL RBC (3.80-5.40) m/uL Hgb (11.4-16.0) gm/dL Hct (34.0-46.0) % MCHC (31.0-37.0) g/dL RDW (11.5-15.5) % Neutrophils # (1.3-7.7) k/uL Lymphocytes # (1.0-4.8) k/uL BUN 25 H (7-17) mg/dL Glucose 73 L (74-99) mg/dL Magnesium (1.6-2.3) mg/dL AST 58 H (14-36) U/L ALT 105 H (4-34) U/L Alkaline Phosphatase 163 H (38-126) U/L Total Protein 5.2 L (6.3-8.2) g/dL Albumin 3.4 L (3.5-5.0) g/dL Crossmatch Diabetes panel 02/12/24 02/12/24 Range/Units 05:46 05:46 Sodium 138 137 (137-145) mmol/L Potassium 4.7 4.8 (3.5-5.1) mmol/L Chloride 105 105 (98-107) mmol/L Carbon Dioxide 24 25 (22-30) mmol/L BUN 25 H 25 H (7-17) mg/dL Creatinine 0.71 0.71 (0.52-1.04) mg/dL Glucose 74 73 L (74-99) mg/dL Calcium 8.8 8.8 (8.4-10.2) mg/dL AST 56 H 58 H (14-36) U/L ALT 104 H 105 H (4-34) U/L Alkaline Phosphatase 162 H 163 H (38-126) U/L Total Protein 5.2 L 5.2 L (6.3-8.2) g/dL Albumin 3.5 3.4 L (3.5-5.0) g/dL Calcium panel 02/12/24 02/12/24 Range/Units 05:46 05:46 Calcium 8.8 8.8 (8.4-10.2) mg/dL Albumin 3.5 3.4 L (3.5-5.0) g/dL Pituitary panel 02/12/24 02/12/24 Range/Units 05:46 05:46 Sodium 138 137 (137-145) mmol/L Potassium 4.7 4.8 (3.5-5.1) mmol/L Chloride 105 105 (98-107) mmol/L Carbon Dioxide 24 25 (22-30) mmol/L BUN 25 H 25 H (7-17) mg/dL Creatinine 0.71 0.71 (0.52-1.04) mg/dL Glucose 74 73 L (74-99) mg/dL Calcium 8.8 8.8 (8.4-10.2) mg/dL Adrenal panel 02/12/24 02/12/24 Range/Units 05:46 05:46 Sodium 138 137 (137-145) mmol/L Potassium 4.7 4.8 (3.5-5.1) mmol/L Chloride 105 105 (98-107) mmol/L Carbon Dioxide 24 25 (22-30) mmol/L BUN 25 H 25 H (7-17) mg/dL Creatinine 0.71 0.71 (0.52-1.04) mg/dL Glucose 74 73 L (74-99) mg/dL Calcium 8.8 8.8 (8.4-10.2) mg/dL Total Bilirubin 1.0 1.0 (0.2-1.3) mg/dL AST 56 H 58 H (14-36) U/L ALT 104 H 105 H (4-34) U/L Alkaline Phosphatase 162 H 163 H (38-126) U/L Total Protein 5.2 L 5.2 L (6.3-8.2) g/dL Albumin 3.5 3.4 L (3.5-5.0) g/dL Assessment and Plan Assessment: 68-year-old female status post ICU stay was suspected stress gastritis/ulcer While discussing with the patient the patient states that her GERD is acute and started while in the hospital I suspect that she has stress test gastritis secondary to her prolonged ICU stay although she is on Protonix twice a day I gave her a GI cocktail including Maalox with lidocaine. The patient is very happy and states that this has solved her issues. Until her ulcer improves we can get this cocktail to her once daily as needed for pain. I believe with the Protonix twice a day this ulcer wall improved significantly. Patient will need an EGD in 3 months. Time with Patient: Greater than 30
[2024-02-12 16:56] LABS: Glucose,Whole Blood 90 mg/dL (70-110)
[2024-02-12] MEDS: LIDOCAINE VISCOUS 2% 15 ML CUP MUCOUS MEM SCH (17:27)
[2024-02-12] MEDS: MAG HYDROX/AL HYDROX/SIMETH 30 ML CUP PO SCH (17:27)
[2024-02-12 20:27] LABS: Glucose,Whole Blood 128 mg/dL (70-110)
--- NOTE | 2024-02-12 22:31 | PN ---
PROGRESS NOTE A 68-year-old white female, had surgical evaluation, 3 episodes of panic attacks. Vital signs reviewed. She has tenderness in the right upper epigastric, suspect to get gastritis ulcer. She is on GERD medications, gastritis, Maalox and lidocaine. Her stomach is better. She is going to get GI cocktail once a day. Continue PPIs. We will get an EGD in 3 months. Prognosis guarded. Please see further orders. MMODL / IJN: [id number] /
[2024-02-13 06:15] LABS: Glucose,Whole Blood 84 mg/dL (70-110)
--- NOTE | 2024-02-13 07:28 | XR ---
EXAMINATION TYPE: XR chest 2V DATE OF EXAM: 02/13/2024 6:37 AM CLINICAL INDICATION: Female, 68 years old with history of Postop cardiac surgery; [facility] COMPARISON: Chest radiographs from 02/12/2024 TECHNIQUE: XR chest 2V Frontal view of the chest. FINDINGS: Lungs/Pleura: There is no evidence of pleural effusion, focal consolidation, or pneumothorax. Pulmonary vascularity: Pulmonary vascular congestion. Heart/mediastinum: Cardiomediastinal silhouette is enlarged. Post aortic valve repair changes. Left atrial appendage occlusion device is present. Musculoskeletal: No acute osseous pathology. IMPRESSION: Postoperative change of mild edema and blunting of the costophrenic angles.
[2024-02-13 07:58] LABS: Anisocytosis Slight; Basophils % (A) 0 %; Eosinophils # (A) 0.2 k/uL (0-0.7); Eosinophils % (A) 1 %; HCT 30.3 % (34.0-46.0); HGB 9.9 gm/dL (11.4-16.0); Hypochromasia Slight; Lymphocytes # (A) 0.7 k/uL (1.0-4.8); Lymphocytes % (A) 6 %; MCH 31.9 pg (25.0-35.0); MCHC 32.8 g/dL (31.0-37.0); MCV 97.2 fL (80.0-100.0); Macrocytosis Slight; Mean Platelet Volume 8.1; Monocytes # (A) 0.6 k/uL (0-1.0); Monocytes % (A) 5 %; Neutrophils % (A) 88 %; Platelet Count 297 k/uL (150-450); RBC 3.11 m/uL (3.80-5.40); RDW 19.5 % (11.5-15.5); WBC 12.6 k/uL (3.8-10.6)
[2024-02-13 08:07] LABS: ALT 78 U/L (4-34); AST 40 U/L (14-36); African American GFR (CKD) >90 (>60 ml/min/1.73 sqM); Albumin 3.6 g/dL (3.5-5.0); Alkaline Phosphatase 155 U/L (38-126); Anion Gap 6 mmol/L; Blood Urea Nitrogen 14 mg/dL (7-17); Calcium 8.5 mg/dL (8.4-10.2); Carbon Dioxide 31 mmol/L (22-30); Chloride 99 mmol/L (98-107); Glucose 73 mg/dL (74-99); Non-African American GFR(CKD) >90 (>60 ml/min/1.73 sqM); Potassium 4.3 mmol/L (3.5-5.1); Sodium 136 mmol/L (137-145); Total Protein 5.3 g/dL (6.3-8.2)
[2024-02-13] MEDS: LIDOCAINE VISCOUS 2% 15 ML CUP MUCOUS MEM SCH ×2 (08:34→17:01)
[2024-02-13] MEDS: MAG HYDROX/AL HYDROX/SIMETH 30 ML CUP PO SCH ×2 (08:34→17:01)
--- NOTE | 2024-02-13 08:35 | P.PN ---
Subjective Progress Note Date: 02/13/24 Principal diagnosis: Severe mitral regurgitation, moderate to severe tricuspid regurgitation, moderate aortic insufficiency per transthoracic echocardiogram, severe pulmonary hypertension, acute heart failure with preserved left ventricular systolic function. History of mild CAD, hyperlipidemia, COPD on home oxygen at night and PRN, recent pneumonia, GERD, previous tobacco dependence, occasional marijuana use, family history of coronary artery disease with mother from myocardial infarction in her 70s POD #8 mitral valve replacement with a 29 mm Hannah Mitris resilia bioprosthetic mitral valve, tricuspid valve repair with a 30 mm Hannah MC 3 ring, clip ligation of the left atrial appendage with a 35 mm AtriClip, intraoperative transesophageal echocardiogram performed by anesthesia Acute blood loss anemia, expected given hemodilution and cardiopulmonary bypass pump. Third degree heart block, unexpected, POD #4 implantation of Micra AV device by Dr. Mead. The patient was seen and examined in follow-up today February 13, 2024 at her bedside on the third floor cardiac stepdown unit. The patient is currently sitting up to the bedside chair, is awake, alert, oriented x 3 and is in no acute apparent distress. Denies any complaints of shortness of breath or surgical type pain at this time, although continues to complain of episodes of heartburn. She was seen by general surgery yesterday and was started on a GI cocktail including Maalox and lidocaine, the patient reports she did have some relief from the heartburn with this cocktail. Oxygen saturations are 96% on room air and she is achieving 750 mL on her incentive spirometry with encou ragement. According to the nursing staff the patient has been uncooperative with ambulating in the hallway and taking a shower. Remote telemetry is showing ventricular paced rhythm heart rate 86 bpm. Discharge planning is in place and she is awaiting insurance authorization for transfer to [facility] rehab facility. She remains hemodynamically stable and is currently on no inotropic or pressor support. Chest x-ray and laboratory results were reviewed. Objective - Vital Signs Vital signs: Vital Signs Temp 98.3 F 02/13/24 05:00 Pulse 86 02/13/24 05:00 Resp 18 02/13/24 05:00 BP 117/85 02/13/24 05:00 Pulse Ox 96 02/13/24 05:00 FiO2 40 02/05/24 22:05 Intake & Output 02/12/24 02/13/2424 18:59 06:59 18:59 Intake Total 230 530 Output Total 1600 700 Balance -1370 -170 Weight 63.1 kg Intake: IV 30 30 Invasive Line 8 30 30 Intake, IV Titration 100 Amount Sodium Ferric Gluconat- 100 Sucrose 125 mg In Sodium Chloride 0.9% 100 ml @ 100 mls/hr IVPB DAILY [facility] Rx#:[id number] Oral 100 500 Output: Urine 1600 700 Other: Voiding Method Bedside Commode Bedside Commode # Voids 0 # Bowel Movements 0 1 ABP, PAP, CO, CI - Last Documented Arterial Blood Pressure 89/39 Pulmonary Artery Pressure 236/236 Cardiac Output 4.4 Cardiac Index 3 - Exam CONSTITUTIONAL: Appears comfortable, cooperative, no acute distress RESPIRATORY: Lungs sounds diminished to her bilateral bases, few scattered crackles throughout. Respirations symmetrical, nonlabored. Currently on room air with oxygen saturation 96%. Able to achieve 750 mL on incentive spirometry. Strong cough. CARDIOVASCULAR: S1, S2 present, negative for S3 or gallop. Regular rate and rhythm. Sternum stable. Palpable peripheral pulses bilaterally. No edema present. No calf pain or tenderness noted. Heart hugger in place with patient demonstrating appropriate use. Antiembolism stockings, SCDs present. GASTROINTESTINAL: Abdomen soft, nontender, nondistended. Active bowel sounds present 4 quadrants. Tolerating minimal diet. Bowel movement February 11, 2024. Passing flatus. Heartburn. GENITOURINARY: Continues to void. Urine output 400 mL in the last 8 hours. INTEGUMENTARY: Skin is warm and dry, no clubbing or cyanosis is present. Midline sternal chest incision well approximated and covered with dry intact dressing. Some sera-incisional ecchymosis. Bilateral groin puncture sites clean and dry. NEUROLOGIC: Cranial nerves II through XII intact. No focal deficits. MUSKULOSKELETAL: Able to move all extremities, strength equal bilaterally. PSYCHIATRIC: Alert and oriented to person place and time, appropriate affect, intact judgment and insight. - Allied health notes Allied health notes reviewed: nursing - Labs CBC & Chem 7: 02/13/24 06:40 02/13/24 06:40 Labs: Abnormal Lab Results - Last 24 Hours (Table) 02/12/24 Range/Units 20:27 POC Glucose (mg/dL) 128 H (70-110) mg/dL - Imaging and Cardiology Chest x-ray: report reviewed, image reviewed Assessment and Plan Assessment: Severe mitral regurgitation, moderate to severe tricuspid regurgitation per ENRIQUE, status post mitral valve replacement, tricuspid valve repair Severe pulmonary hypertension Acute heart failure with preserved left ventricular systolic function, EF 55-60% Third-degree heart block, status post implantation of Micra AV device by Dr. Mead History of mild coronary artery disease Hyperlipidemia, treated COPD on home oxygen at night and PRN Recent pneumonia GERD Previous tobacco dependence, quit 1 month ago, [id number] history Occasional marijuana use Family history of coronary artery disease with mother from myocardial infarction in her 70s Plan: Continue to maximize medical therapy with aspirin, statin, Plavix. Continue low dose losartan for afterload reduction. Encourage incentive spirometry use 10 times every hour while awake. Bronchodilators per pulmonology. Increase activity, ambulate as tolerated. PT/OT/cardiac rehab following. Will monitor daily labs and chest x-rays. Electrolyte replacement per protocol. Due to her persistent complaints of heartburn we will send an amylase and lipase level. Lasix 20 mg IV x 1 now. GI/DVT prophylaxis. Pain control per current medication regimen. Insulin management per internal medicine. Patient is not diabetic, preoperative hemoglobin A1c 5.1%. Continue to monitor strict accurate intake and output. Daily weights. Discharge planning is in place, anticipate discharge to [facility] rehab on Thursday, February 15, 2024, insurance authorization pending. Shower daily. General surgery consult noted and appreciated. Continue Keflex 500 mg p.o. twice daily x 5 days for treatment of some phlebitis. More recommendations to follow based on patient's clinical course. Time with Patient: Greater than 30
--- NOTE | 2024-02-13 08:46 | P.PN ---
Subjective Progress Note Date: 02/13/24 Principal diagnosis: Valvular heart disease This is a 68-year-old female patient was admitted to the hospital with heart failure and she was found to have severe mitral regurgitation and severe tricuspid regurgitation which she was diagnosed with severe symptomatic mitral regurgitation and underwent mitral valve replacement using bioprosthetic valve along with tricuspid valve repair. The surgery itself was uneventful. February 08, 2024 The patient was seen and evaluated this morning. Overall she seems to be stable beside she continues to be bradycardic with third-degree AV block and currently she has a ventricular pacer lead. Otherwise the pressure remains stable. The chest x-ray was reviewed and showed only small right pleural effusion. Her urine output has been marginal and giving that her pressure has been within normal limits and going to give the patient 20 mg of Lasix IV and continue monitor the urine output. Beside that avoid any AV harshil jose agents. The examination is remarkable for regular rhythm with a systolic murmur at the right upper sternal border with diminished breathing sounds bilaterally and no edema was noted in the lower extremities February 09, 2024 The patient was seen and evaluated this morning. She underwent earlier today leadless pacemaker implantation and that was uneventful. Her current heart rate has been in the 60s. She has been feeling nauseated. Beside that she has been experiencing heartburn and she was on PPI but I gave her additional 40 mg of Protonix IV. Otherwise she seems to be stable. The urine output has been marginal and she is in process of having Lasix. The physical examination is remarkable for stable vital signs with distant heart sounds and diminished breathing sounds bilaterally and no edema was noted in the lower extremities February 10, 2024 The patient was seen and evaluated this morning. She seems to be stable beside the heartburn which now she stated that it is better with Tums. I am going to obtain an echocardiogram limited to assess for any pericardial effusion. Ot herwise pressure remains soft but stable. Urine output has been normal as well with hemoglobin is stable with the physical examination is remarkable for regular rhythm with diminished breathing sounds bilaterally and no edema was noted in the lower extremities February 13, 2024 The patient was seen and evaluated this morning. She is asymptomatic. The heartburn has resolved completely. No symptoms of chest pain or chest discomfort or shortness of breath. The physical examination is remarkable for stable vital signs with regular rate and rhythm and clear breathing sounds bilaterally. Assessment Severe symptomatic mitral regurgitation Status post mitral valve replacement and tricuspid valve repair Bradycardia requiring pacing Blood loss anemia appears to be stable Marginally low urine output Multiple comorbid conditions Plan Continue current medical regimen Possible discharge in next 12 to 24 hours Objective - Vital Signs Vital signs: Vital Signs Temp 97.6 F 02/13/24 08:18 Pulse 85 02/13/24 08:18 Resp 18 02/13/24 08:18 BP 101/68 02/13/24 08:18 Pulse Ox 98 02/13/24 08:18 FiO2 40 02/05/24 22:05 Intake & Output 02/12/24 02/13/24 02/13/24 18:59 06:59 18:59 Intake Total 230 530 10 Output Total 1600 700 Balance -1370 -170 10 Weight 63.1 kg Intake: IV 30 30 10 Invasive Line 8 30 30 10 Intake, IV Titration 100 Amount Sodium Ferric Gluconat- 100 Sucrose 125 mg In Sodium Chloride 0.9% 100 ml @ 100 mls/hr IVPB DAILY [facility] Rx#:[id number] Oral 100 500 Output: Urine 1600 700 Other: Voiding Method Bedside Commode Bedside Commode # Voids 0 # Bowel Movements 0 1 ABP, PAP, CO, CI - Last Documented Arterial Blood Pressure 89/39 Pulmonary Artery Pressure 236/236 Cardiac Output 4.4 Cardiac Index 3 - Labs CBC & Chem 7: 02/13/24 06:40 02/13/24 06:40 Labs: Abnormal Lab Results - Last 24 Hours (Table) 02/12/24 02/13/24 02/13/24 Range/Units 20:27 06:40 06:40 WBC 12.6 H (3.8-10.6) k/uL RBC 3.11 L (3.80-5.40) m/uL Hgb 9.9 L (11.4-16.0) gm/dL Hct 30.3 L (34.0-46.0) % RDW 19.5 H (11.5-15.5) % Neutrophils # 11.0 H (1.3-7.7) k/uL Lymphocytes # 0.7 L (1.0-4.8) k/uL Sodium 136 L (137-145) mmol/L Carbon Dioxide 31 H (22-30) mmol/L Glucose 73 L (74-99) mg/dL POC Glucose (mg/dL) 128 H (70-110) mg/dL AST 40 H (14-36) U/L ALT 78 H (4-34) U/L Alkaline Phosphatase 155 H (38-126) U/L Total Protein 5.3 L (6.3-8.2) g/dL
[2024-02-13 10:19] LABS: Amylase <30 U/L (30-110); Lipase 41 U/L (23-300)
--- NOTE | 2024-02-13 10:29 | P.PN ---
Subjective Progress Note Date: 02/13/24 Patient is a 68-year-old female with past medical history significant for COPD, chronic oxygen dependence, chronic ongoing tobacco dependence, hyperlipidemia, hypertension, among other things. Patient reports over the past 1 month she has had 3 episodes of what she attributed to be panic attacks. She was acutely short of breath followed by anxiety. Of note, also had multiple episodes of syncope over the last few months. On December she was evaluated at [facility]. Reportedly underwent heart catheterization, I do not believe she received any percutaneous coronary intervention. She was found to have significant valvular heart disease on transthoracic echocardiogram, official results are not available to me at this time.. Reported affected valves include severe mitral regurgitation and at least moderate to severe aortic regurgitation. Yesterday, patient was transferred to [facility] for ENRIQUE and cardiothoracic surgery consult. Patient is currently in the intensive care unit room 263. She is sitting up in bed on 3 L/min nasal cannula. SpO2 is 100% at rest. Not in any respiratory distress. Reportedly normally wears 2 to 3 L nasal cannula at bedtime. She does have history of COPD and normally utilizes a combination of Trelegy maintenance inhaler and albuterol nebs. She still smokes approximately 1 pack/day. She is wheezing. Denies any infectious symptoms. No change in chronic cough, sputum production, chest pain, fever. We are waiting on chest x-ray. Currently on a combination of Pulmicort, DuoNebs, and IV Solu-Medrol. CBC from outside facility: WBC count 10, hemoglobin 9.9, hematocrit 30.8, platelets 202. BMP from outside facility includes a sodium 143, potassium 4.2, chloride 108, serum bicarb 32, BUN 15, creatinine 0.88, glucose 100. Troponins were mildly elevated. Hemodynamics are stable. On today's evaluation of 02/03/2024, I am seeing the patient for a follow-up. The patient is currently on room air oxygen. ENRIQUE was completed was found to have severe mitral regurgitation, in addition to reversal of flow in the pulmonary veins as well as dilated left atrium and moderate to severe tricuspid regurgitation. Her current cardiac rhythm remains sinus. The patient is hemodynamic stable on room air oxygen. The patient is on DuoNeb nebulized treatments [id number]. The patient is also on IV Solu-Medrol regarding COPD and a dose of 40 mg every 8 hours. Most recent chest x-ray from yesterday showed some mild pulm vascular congestion. Carotid Dopplers showed no critically abnormal stenosis involving the coronary arteries. The patient is awaiting recommendations from cardiothoracic surgery regarding valve surgery. The patient is edentulous. No new labs are available from today. Medications remain unchanged and the patient is currently on Lasix 40 mg p.o. daily the patient is also on metoprolol 75 mg p.o. daily. She is on Celexa and Wellbutrin regarding history of depression. On today's evaluation of 02/04/2024, the patient is being seen for a follow-up. Patient is doing well. She was transferred out of the intensive care unit yesterday. The plan is to proceed with cardiac surgery in the morning. The patient has severe mitral regurgitation and this has been confirmed by ENRIQUE. The patient is scheduled to undergo surgery with mitral valve repair/possible replacement in a.m. on 02/05/2024. The patient is currently on room air oxygen. No signs of any fluid overload. No cardiac arrhythmias. No chest pain. No significant shortness of breath. The white cell count is 12.5 with a hemoglobin 12.1 and a platelet count of 435. Normal coagulation profile. BUN is 36 with a creatinine of 1 and sodium is at 137 and serum bicarbonate 31. LDL cholesterol is at 223. 02/05/2024, the patient is being seen in the intensive care unit immediately after she arrived to the ICU. At this point in time, the patient is sedated and she is on propofol which is at 35 mcg/kg/min. She is well sedated and she is calm and comfortable. She is currently on assist-control mode of mechanical arya tilation at a rate of 14, tidal volume of 350, FiO2 of 100% and a PEEP of 5. Initial blood gases showed a pH of 7.30 with a pCO2 of 49 and pO2 of 422. Based on that, the FiO2 has been dropped down to 50% and I increased the rate up to 20. Chest x-ray was noted and there is no evidence of any pneumothorax. ET tube is in a good location. [place]Lu[place] catheter ideally needs to be advanced by a centimeter. The patient has right-sided chest tube, left-sided chest tube and a mediastinal chest tube. Output from the chest was of been noted. The patient has produced approximately 40 cc of bloody material from the mediastinal chest tube, 30 from the right and 10 from the left. No evidence of any air leak. Hemodynamically, the patient's systolic blood pressure is 97 with a diastolic pressure of 56. Cardiac output is at 2.5 with an index of 1.7. Cardiac rhythm is paced at a rate of 83 and the underlying cardiac rhythm is third-degree AV block. Pulmonary artery pressures of 31/19. SVR is elevated. Currently receiving IV albumin 5% a total of 250cc hide the patient will be also started on milrinone.Patient She may also require norepinephrine for blood pressure support. Urine output is adequate at this point in time. In terms of the blood work, the WBC count is at 7.9, hemoglobin 7.3 and a platelet count of 171. BUN is 26 with a creatinine of 0.77 and a sodium levels of 136. The current temperature is at 36. The patient is sitting external warming measures. Calcium level is at 7.3. 02/06/2024, the patient is being seen for a follow-up. The patient is postop day number 1 following mitral valve and tricuspid valve replacement. The patient was weaned off the mechanical ventilator the patient was extubated yesterday and the patient is currently on room air oxygen. she has no significant respiratory distress. The patient is using the incentive spirometer. Chest x-ray from today shows no evidence of any pneumothorax. Chest tubes are still in place. The mediastinal chest tube Produced 550 cc, left pleural produced 300 cc in the right chest tube was produced 250 cc surgery. The patient's output is serosanguineous/bloody. Hemodynamically, the patient underlying cardiac rhythm is stable third-degree AV block. The patient is being paced at a rate of 80. The patient was started on a combination of milrinone and norepinephrine. Norepinephrine was discontinued the patient is currently on milrinone which is running at 0.2 mcg/kg/min. The most recent hemodynamic parameters show a cardiac output of 3.4 with an index of 2.3. PA pressures of 47/70. CVP is at 9. Noted the patient had received 2 units of packed RBC in the operating room. Hemoglobin stable at 9.8 with a white cell count of 9.1. Platelet count is at 129. BUN is 21 with a creatinine of 0.7. Electrolytes are all within normal limits. The patient is afebrile. Awake and alert and communicating. Beta- blockers are still on hold. 02/07/2024, the patient remains extubated, postop day #2, currently on room air oxygen. Cardiac index was up to 3. Milrinone is being weaned off and this will be discontinued. The right pleural and left lower chest tube will be also removed and the mediastinal chest tube will be kept in place. Hemodynamically stable. Producing adequate amount of urine output. Cardiac rhythm remains paced at the rate of 80. Underlying rhythm remains in third-degree AV block. The blood work from today shows a WBC of 9.2, hemoglobin of 8.6 and a platelet count of 113. Serum bicarb is at 19 but is from the 134 and a BUN of 13 with a creatinine of 0.6. The patient also received a dose of Lasix today given to her by the cardiothoracic team. She is off beta-blockers. Utilizing losartan 12.5 mg for blood pressure control. No other significant events. Awake and alert and communicating. No neurological deficits. Patient was evaluated today on 02/08/2024, she is now postoperative day #3. Patient is status post mitral valve replacement and tricuspid valve repair, postoperative day #3. She is on room air, does not seem to be in any distress, she seems to be doing poorly with incentive spirometry. Hemodynamically stable, cardiac output 4.4 cardiac index is 3 patient received Lasix earlier today 20 mg IV push. Patient may need a permanent pacemaker implantation, and that is yet to be decided by cardiology. Continues to have chest tube in place. Evidence of leak, no evidence of pneumothorax on chest x-ray. Patient has an underlying rhythm of third-degree AV block, and again pacemaker placement is pending WBC count is 7.5 hemoglobin 7.7 electrolytes are normal renal profile is normal chest x-ray showed mostly postoperative changes. No acute process Patient was evaluated today 02/09/2024, patient is in the ICU, she is on room air, she is now postoperative day #4. Mitral valve replacement and tricuspid valve repair, patient is not in any distress, she just came back from the cardiac [employer], she had implantation of Micra AV device for complete heart block post mitral valve repair. Patient has no active pulmonary symptoms, no cough no wheezing no shortness of breath no chest pain. Chest x-ray is reassuring. Labs are basically unremarkable hemoglobin is 7.7 otherwise the rest of the labs are basically normal patient is hemodynamically stable, not requiring any pressors or any inotropes. She is achieving 750 mL on her brandon ntive spirometry. Her mediastinal chest tube was discontinued yesterday. Patient was seen today on 02/10/2024, patient continues to do well, remains in the ICU, she is on room air, asymptomatic, patient is paced, had an echocardiogram today showed small pericardial effusion. This x-ray showed no p ostoperative pleural-parenchymal changes, no evidence of pneumothorax. No evidence of congestive heart failure. Overall the patient is doing great, she is now postoperative day #5 WBC is 10.9 hemoglobin 7.2 electrolytes are normal renal profile is normal liver enzymes are a bit elevated. Patient was seen today on 02/11/2024, patient is feeling better, she has no cough no wheezing no shortness of breath, she does have occasional heartburn and treated with Tums and Maalox. She is also on Protonix twice a day. Patient is achieving 750 mL on her incentive spirometry. She has been ambulating to the bathroom with minimal assistance. All her chest tubes and her epicardial pacemaker wires have been removed. Chest x-ray showed mostly postoperative changes, tiny effusions and scattered pleural-parenchymal density noted no evidence of pneumothorax. Patient was seen today on 02/12/2024, patient is doing great, on room air, does not seem to be in any distress, continues to have symptoms of severe GERD. Patient did receive a unit of packed RBCs yesterday for hemoglobin of 7.4, patient to be seen by gastroenterology regarding her persistent GERD. Celso clifford she is doing great, asymptomatic, no cough no wheezing no shortness of breath CBC today is relatively normal hemoglobin is 8.7 basic metabolic profile is normal, chest x-ray showed minimal basilar atelectasis, no evidence of conges tive heart failure small left pleural effusion is noted. The patient is seen today February 13, 2024 in follow-up on the regular medical floor. She is currently sitting up in a chair at the bedside. Awake and alert in no acute distress. Denies any worsening shortness of breath cough or congest ion. She was given a GI cocktail yesterday and her acid reflux symptoms have subsided. No complaints today. Chest x-ray reveals postoperative changes of mild edema and blunting of the costophrenic angles. She is maintaining good O2 saturations in the 90s on room air. She has been afebrile. Hemodynamically stable. 0.9. Platelets 297. Sodium 136. Potassium 4.3. Bicarb 31. Glucose 73. AST 40. ALT 78. She continues to work well with the incentive spirometer. Heparin for DVT prophylaxis. Objective - Vital Signs Vital signs: Vital Signs Temp 97.6 F 02/13/24 08:18 Pulse 85 02/13/24 09:52 Resp 18 02/13/24 09:52 BP 101/68 02/13/24 08:18 Pulse Ox 97 02/13/24 08:47 FiO2 40 02/05/24 22:05 Intake & Output 02/12/24 02/13/24 02/13/24 18:59 06:59 18:59 Intake Total 230 530 10 Output Total 1600 700 Balance -1370 -170 10 Weight 63.1 kg Intake: IV 30 30 10 Invasive Line 8 30 30 10 Intake, IV Titration 100 Amount Sodium Ferric Gluconat- 100 Sucrose 125 mg In Sodium Chloride 0.9% 100 ml @ 100 mls/hr IVPB DAILY [facility] Rx#:[id number] Oral 100 500 Output: Urine 1600 700 Other: Voiding Method Bedside Commode Bedside Commode Bedside Commode # Voids 0 # Bowel Movements 0 1 ABP, PAP, CO, CI - Last Documented Arterial Blood Pressure 89/39 Pulmonary Artery Pressure 236/236 Cardiac Output 4.4 Cardiac Index 3 - Exam GENERAL EXAM: Alert, very pleasant 68-year-old female, up in a chair, on room air, comfortable in no apparent distress. HEAD: Normocephalic. EYES: Normal reaction of pupils, equal size. NOSE: Clear with pink turbinates. THROAT: No erythema or exudates. NECK: No masses, no JVD. CHEST: No chest wall deformity. Sternum stable. Heart hugger in place. LUNGS: Equal air entry with no crackles, wheeze, rhonchi or dullness. CVS: S1 and S2 normal with no audible murmur, regular rhythm. ABDOMEN: No hepatosplenomegaly, normal bowel sounds, no guarding or rigidity. SPINE: No scoliosis or deformity SKIN: No rashes CENTRAL NERVOUS SYSTEM: No focal deficits, tone is normal in all 4 extremities. EXTREMITIES: There is no peripheral edema. No clubbing, no cyanosis. Peripheral pulses are intact. - Labs CBC & Chem 7: 02/13/24 06:40 02/13/24 06:40 Labs: Abnormal Lab Results - Last 24 Hours (Table) 02/12/24 02/13/24 02/13/24 Range/Units 20:27 06:40 06:40 WBC 12.6 H (3.8-10.6) k/uL RBC 3.11 L (3.80-5.40) m/uL Hgb 9.9 L (11.4-16.0) gm/dL Hct 30.3 L (34.0-46.0) % RDW 19.5 H (11.5-15.5) % Neutrophils # 11.0 H (1.3-7.7) k/uL Lymphocytes # 0.7 L (1.0-4.8) k/uL Sodium 136 L (137-145) mmol/L Carbon Dioxide 31 H (22-30) mmol/L Glucose 73 L (74-99) mg/dL POC Glucose (mg/dL) 128 H (70-110) mg/dL AST 40 H (14-36) U/L ALT 78 H (4-34) U/L Alkaline Phosphatase 155 H (38-126) U/L Total Protein 5.3 L (6.3-8.2) g/dL Assessment and Plan Assessment: Status post mitral valve replacement and tricuspid valve repair the patient is postop day #8 Status post implantation of Micra AV device for complete heart block postoperative day #3 COPD, recovered from acute COPD exacerbation Postoperative anemia, acute blood loss anemia, expected Anemia, normocytic normochromic Chronic ongoing tobacco dependence, 1 pack/day smoker with over 80-tuxb-qkks history History of hyperlipidemia History of hypertension Chronic back pain and she is on Neurontin, and hydrocodone Depression Migraines cephalgia. Smoker Plan: The patient was seen and evaluated Chest x-ray, labs and medications reviewed Stable and on room air Working well with the incentive spirometer Awaiting transfer to subacute rehabilitation This patient was seen independently by the pulmonary nurse practitioner addressing pulmonary issues I have personally seen and examined the patient, performed the documentation and the assessment and plan as written. Number of minutes spent on the visit: 24.
[2024-02-13 11:38] LABS: Glucose,Whole Blood 100 mg/dL (70-110)
[2024-02-13 16:32] LABS: Glucose,Whole Blood 125 mg/dL (70-110)
--- NOTE | 2024-02-13 18:27 | P.PN ---
Progress Note - Text Progress Note Date: 02/13/24 ORTIZ. GERD has improved. Denies Abdominal Pain VSS General-NAD Abdomen-soft, NTND 68-year-old female status post ICU stay was suspected stress gastritis/ulcer -Heart Healthy Diet -Protonix -Daily GI cocktail -Will need outpatient EGD Héctor Villegas DO [facility] [phone]
[2024-02-13 20:34] LABS: Glucose,Whole Blood 120 mg/dL (70-110)
[2024-02-14 06:18] LABS: Glucose,Whole Blood 100 mg/dL (70-110)
--- NOTE | 2024-02-14 07:34 | PN ---
PROGRESS NOTE SUBJECTIVE: Status post surgery for mitral valve, tricuspid valve. She has been having abdominal pain which was relieved with Maalox with lidocaine. She has no coughing, wheezing. She has no complaints. Sodium 136, potassium 4.3, bicarb 31, glucose 73. AST and ALT 40 and 78. OBJECTIVE: VITAL SIGNS: Temperature 97.6, blood pressure 101/68, O2 97, FiO2 40, respiratory rate 18, pulse 85. LUNGS: Transmitted upper sounds. CARDIOVASCULAR: S1, S2. ABDOMEN: Soft, nontender. SKIN: No rashes. SNOW MAKER: Range of motion full x4. White count is 12.6, hemoglobin is 9.9. Sodium 136, potassium 4.3. ASSESSMENT: 1. Status post mitral valve replacement, tricuspid valve repair, postoperative day 8. 2. Micra AV device for complete heart block, postoperative day 3. 3. Chronic obstructive pulmonary disease. 4. Anemia. 5. Hypertension. 6. Dyslipidemia. 7. Nicotine addiction. 8. Migraines. 9. Depression. 10.Chronic back pain. 11.Degenerative disk disease with neuropathy. 12.Nicotine addition. PLAN: Continue current treatment. She is going to go to some rehab center soon. Prognosis guarded. MMODL / IJN: [id number] /
[2024-02-14 08:12] LABS: Anisocytosis Slight; Basophils % (A) 0 %; Eosinophils # (A) 0.2 k/uL (0-0.7); Eosinophils % (A) 2 %; HCT 29.7 % (34.0-46.0); HGB 9.2 gm/dL (11.4-16.0); Hypochromasia Marked; Lymphocytes # (A) 0.7 k/uL (1.0-4.8); Lymphocytes % (A) 6 %; MCH 30.6 pg (25.0-35.0); MCHC 30.8 g/dL (31.0-37.0); MCV 99.3 fL (80.0-100.0); Macrocytosis Slight; Mean Platelet Volume 7.4; Monocytes # (A) 0.4 k/uL (0-1.0); Monocytes % (A) 4 %; Neutrophils # (A) 9.2 k/uL (1.3-7.7); Neutrophils % (A) 87 %; Platelet Count 303 k/uL (150-450); RBC 2.99 m/uL (3.80-5.40); WBC 10.5 k/uL (3.8-10.6)
--- NOTE | 2024-02-14 08:18 | P.PN ---
Subjective Progress Note Date: 02/14/24 Principal diagnosis: Valvular heart disease This is a 68-year-old female patient was admitted to the hospital with heart failure and she was found to have severe mitral regurgitation and severe tricuspid regurgitation which she was diagnosed with severe symptomatic mitral regurgitation and underwent mitral valve replacement using bioprosthetic valve along with tricuspid valve repair. The surgery itself was uneventful. February 08, 2024 The patient was seen and evaluated this morning. Overall she seems to be stable beside she continues to be bradycardic with third-degree AV block and currently she has a ventricular pacer lead. Otherwise the pressure remains stable. The chest x-ray was reviewed and showed only small right pleural effusion. Her urine output has been marginal and giving that her pressure has been within normal limits and going to give the patient 20 mg of Lasix IV and continue monitor the urine output. Beside that avoid any AV harshil jose agents. The examination is remarkable for regular rhythm with a systolic murmur at the right upper sternal border with diminished breathing sounds bilaterally and no edema was noted in the lower extremities February 09, 2024 The patient was seen and evaluated this morning. She underwent earlier today leadless pacemaker implantation and that was uneventful. Her current heart rate has been in the 60s. She has been feeling nauseated. Beside that she has been experiencing heartburn and she was on PPI but I gave her additional 40 mg of Protonix IV. Otherwise she seems to be stable. The urine output has been marginal and she is in process of having Lasix. The physical examination is remarkable for stable vital signs with distant heart sounds and diminished breathing sounds bilaterally and no edema was noted in the lower extremities February 10, 2024 The patient was seen and evaluated this morning. She seems to be stable beside the heartburn which now she stated that it is better with Tums. I am going to obtain an echocardiogram limited to assess for any pericardial effusion. Ot herwise pressure remains soft but stable. Urine output has been normal as well with hemoglobin is stable with the physical examination is remarkable for regular rhythm with diminished breathing sounds bilaterally and no edema was noted in the lower extremities February 13, 2024 The patient was seen and evaluated this morning. She is asymptomatic. The heartburn has resolved completely. No symptoms of chest pain or chest discomfort or shortness of breath. The physical examination is remarkable for stable vital signs with regular rate and rhythm and clear breathing sounds bilaterally. February 14, 2024 The patient was seen and evaluated this morning which she continues to complain of burning sensation/heartburn. I advised the patient to be seen by the GI service and I advised the patient might benefit from EGD. Otherwise no pain in the chest and no shortness of breath and no dizziness or lightheadedness and no feeling of heart racing or fluttering. Hemodynamically she is stable. He is on dual antiplatelet therapy as well. Examination is remarkable for regular rhythm with a distant heart sounds and soft systolic murmur and clear breathing sounds bilaterally and no edema was noted in the lower extremities Assessment Severe symptomatic mitral regurgitation Status post mitral valve replacement and tricuspid valve repair Bradycardia requiring pacing Blood loss anemia appears to be stable Marginally low urine output Heartburn of unknown etiology Multiple comorbid conditions Plan Continue current medical regimen I would suggest the patient to be seen by the GI service with possible endoscopy Performed twelve-lead EKG Follow-up with the patient Objective - Vital Signs Vital signs: Vital Signs Temp 98.3 F 02/14/24 04:00 Pulse 91 02/14/24 08:00 Resp 16 02/14/24 08:00 BP 130/75 02/14/24 08:00 Pulse Ox 99 02/14/24 08:00 FiO2 40 02/05/24 22:05 Intake & Output 02/13/24 02/14/24 02/14/24 18:59 06:59 18:59 Intake Total 20 10 Output Total 950 Balance 20 -940 Weight 63.8 kg Intake: IV 20 10 Invasive Line 8 20 10 Output: Urine 950 Other: Voiding Method Bedside Commode Bedside Commode # Bowel Movements 2 ABP, PAP, CO, CI - Last Documented Arterial Blood Pressure 89/39 Pulmonary Artery Pressure 236/236 Cardiac Output 4.4 Cardiac Index 3 - Labs CBC & Chem 7: 02/14/24 07:36 02/13/24 06:40 Labs: Abnormal Lab Results - Last 24 Hours (Table) 02/13/24 02/13/24 02/13/24 Range/Units 06:40 16:31 20:18 RBC (3.80-5.40) m/uL Hgb (11.4-16.0) gm/dL Hct (34.0-46.0) % MCHC (31.0-37.0) g/dL RDW (11.5-15.5) % Neutrophils # (1.3-7.7) k/uL Lymphocytes # (1.0-4.8) k/uL POC Glucose (mg/dL) 125 H 120 H (70-110) mg/dL Amylase <30 L (30-110) U/L 02/14/24 Range/Units 07:36 RBC 2.99 L (3.80-5.40) m/uL Hgb 9.2 L (11.4-16.0) gm/dL Hct 29.7 L (34.0-46.0) % MCHC 30.8 L (31.0-37.0) g/dL RDW 19.0 H (11.5-15.5) % Neutrophils # 9.2 H (1.3-7.7) k/uL Lymphocytes # 0.7 L (1.0-4.8) k/uL POC Glucose (mg/dL) (70-110) mg/dL Amylase (30-110) U/L
[2024-02-14 08:30] LABS: ALT 62 U/L (4-34); AST 33 U/L (14-36); African American GFR (CKD) >90 (>60 ml/min/1.73 sqM); Albumin 3.4 g/dL (3.5-5.0); Alkaline Phosphatase 128 U/L (38-126); Anion Gap 6 mmol/L; Blood Urea Nitrogen 10 mg/dL (7-17); Calcium 8.6 mg/dL (8.4-10.2); Carbon Dioxide 29 mmol/L (22-30); Chloride 101 mmol/L (98-107); Glucose 89 mg/dL (74-99); Non-African American GFR(CKD) >90 (>60 ml/min/1.73 sqM); Potassium 4.6 mmol/L (3.5-5.1); Sodium 136 mmol/L (137-145); Total Bilirubin 0.9 mg/dL (0.2-1.3); Total Protein 5.3 g/dL (6.3-8.2)
--- NOTE | 2024-02-14 08:40 | XR ---
EXAMINATION TYPE: XR chest 1V portable DATE OF EXAM: 02/14/2024 Comparison: 02/13/2024 Clinical History: 68-year-old female postop MVR/TVR Findings: Median sternotomy wires. Prosthetic cardiac valve. Small bilateral pleural effusions persist. Mild ca rdiomegaly is similar. Impression: Similar mild cardiomegaly as well as small bilateral pleural effusions with adjacent atelectasis and/ or consolidation. [facility], , 02/14/2024 8:38 AM
--- NOTE | 2024-02-14 09:03 | P.PN ---
Subjective Progress Note Date: 02/14/24 Principal diagnosis: Severe mitral regurgitation, moderate to severe tricuspid regurgitation, moderate aortic insufficiency per transthoracic echocardiogram, severe pulmonary hypertension, acute heart failure with preserved left ventricular systolic function. History of mild CAD, hyperlipidemia, COPD on home oxygen at night and PRN, recent pneumonia, GERD, previous tobacco dependence, occasional marijuana use, family history of coronary artery disease with mother from myocardial infarction in her 70s POD #9 mitral valve replacement with a 29 mm Hannah Mitris resilia bioprosthetic mitral valve, tricuspid valve repair with a 30 mm Hannah MC 3 ring, clip ligation of the left atrial appendage with a 35 mm AtriClip, intraoperative transesophageal echocardiogram performed by anesthesia Acute blood loss anemia, expected given hemodilution and cardiopulmonary bypass pump. Third degree heart block, unexpected, POD #5 implantation of Micra AV device by Dr. Mead. The patient was seen and examined in follow-up today February 14, 2024 at her bedside on the third floor cardiac stepdown unit. She is sitting up to the bedside chair, is awake, alert, oriented x 3 and is in no acute apparent distress. She denies any shortness of breath at this time, although continues to have episodes of heartburn off and on throughout the day. She reports the heartburn episodes are relieved by the GI cocktail ordered by general surgery. Oxygen saturations are 97% on room air and she is achieving around 750 mL on her incentive spirometry with encouragement. Remote telemetry is showing paced rhythm heart rate in the 80s, currently 88 bpm. She remains hemodynamically stable and is currently on no inotropic or pressor support. Discharge planning is in place, awaiting insurance authorization for the patient be transferred to [facility]. Chest x-ray and laboratory results reviewed. Objective - Vital Signs Vital signs: Vital Signs Temp 98.3 F 02/14/24 04:00 Pulse 91 02/14/24 08:00 Resp 16 02/14/24 08:00 BP 130/75 02/14/24 08:00 Pulse Ox 99 02/14/24 08:00 FiO2 40 02/05/24 22:05 Intake & Output 02/13/24 02/14/24 02/14/24 18:59 06:59 18:59 Intake Total 20 10 Output Total 950 Balance 20 -940 Weight 63.8 kg Intake: IV 20 10 Invasive Line 8 20 10 Output: Urine 950 Other: Voiding Method Bedside Commode Bedside Commode # Bowel Movements 2 ABP, PAP, CO, CI - Last Documented Arterial Blood Pressure 89/39 Pulmonary Artery Pressure 236/236 Cardiac Output 4.4 Cardiac Index 3 - Exam CONSTITUTIONAL: Appears comfortable, cooperative, no acute distress RESPIRATORY: Lungs sounds diminished to her bilateral bases. Respirations symmetrical, nonlabored. Currently on room air with oxygen saturation 97%. Able to achieve 750 mL on incentive spirometry. Strong cough. CARDIOVASCULAR: S1, S2 present, negative for S3 or gallop. Regular rate and rhythm. Sternum stable. Palpable peripheral pulses bilaterally. No edema present. No calf pain or tenderness noted. Heart hugger in place with patient demonstrating appropriate use. Antiembolism stockings, SCDs present. GASTROINTESTINAL: Abdomen soft, nontender, nondistended. Active bowel sounds present 4 quadrants. Tolerating minimal diet. Bowel movement February 13, 2024. Passing flatus. Heartburn. GENITOURINARY: Continues to void. Urine output 800 mL in the last 8 hours. INTEGUMENTARY: Skin is warm and dry, no clubbing or cyanosis is present. Midline sternal chest incision well approximated and covered with dry intact dressing. Some esra-incisional ecchymosis. Bilateral groin puncture sites clean and dry. Erythema surrounding her left arm IV site NEUROLOGIC: Cranial nerves II through XII intact. No focal deficits. MUSKULOSKELETAL: Able to move all extremities, strength equal bilaterally. PSYCHIATRIC: Alert and oriented to person place and time, appropriate affect, intact judgment and insight. - Allied health notes Allied health notes reviewed: nursing - Labs CBC & Chem 7: 02/14/24 07:36 02/14/24 07:36 Labs: Abnormal Lab Results - Last 24 Hours (Table) 02/13/24 02/13/24 02/13/24 Range/Units 06:40 16:31 20:18 POC Glucose (mg/dL) 125 H 120 H (70-110) mg/dL Amylase <30 L (30-110) U/L - Imaging and Cardiology Chest x-ray: report reviewed, image reviewed Assessment and Plan Assessment: Severe mitral regurgitation, moderate to severe tricuspid regurgitation per ENRIQUE, status post mitral valve replacement, tricuspid valve repair Severe pulmonary hypertension Acute heart failure with preserved left ventricular systolic function, EF 55-60% Third-degree heart block, status post implantation of Micra AV device by Dr. Mead History of mild coronary artery disease Hyperlipidemia, treated COPD on home oxygen at night and PRN Recent pneumonia GERD, complaints of heartburn Previous tobacco dependence, quit 1 month ago, [id number] history Occasional marijuana use Family history of coronary artery disease with mother from myocardial infarction in her 70s Plan: Continue to maximize medical therapy with aspirin, statin, Plavix. Continue low dose losartan for afterload reduction. Encourage incentive spirometry use 10 times every hour while awake. Bronchodilators per pulmonology. Increase activity, ambulate as tolerated. PT/OT/cardiac rehab following. Will monitor daily labs and chest x-rays. Electrolyte replacement per protocol. Lasix 40 mg IV x 1 now. GI/DVT prophylaxis. Pain control per current medication regimen. Insulin management per internal medicine. Patient is not diabetic, preoperative hemoglobin A1c 5.1%. Continue to monitor strict accurate intake and output. Daily weights. Discharge planning is in place, anticipate discharge to [facility] rehab on Thursday, February 15, 2024, insurance authorization pending. Shower daily. Continue Keflex 500 mg p.o. twice daily x 5 days for treatment of phlebitis. More recommendations to follow based on patient's clinical course. Time with Patient: Greater than 30
--- NOTE | 2024-02-14 09:31 | P.PN ---
Progress Note - Text Progress Note Date: 02/14/24 ORTIZ. GERD has improved. Denies Abdominal Pain VSS General-NAD Abdomen-soft, NTND 68-year-old female status post ICU stay was suspected stress gastritis/ulcer -Heart Healthy Diet -Protonix -Daily GI cocktail -Will need outpatient EGD Héctor Villegas DO [facility] [phone]
[2024-02-14] MEDS: FUROSEMIDE 10 MG/ML 4 ML VIAL IV STA (10:05)
--- NOTE | 2024-02-14 11:03 | P.PN ---
Subjective Progress Note Date: 02/14/24 Patient is a 68-year-old female with past medical history significant for COPD, chronic oxygen dependence, chronic ongoing tobacco dependence, hyperlipidemia, hypertension, among other things. Patient reports over the past 1 month she has had 3 episodes of what she attributed to be panic attacks. She was acutely short of breath followed by anxiety. Of note, also had multiple episodes of syncope over the last few months. On December she was evaluated at [facility]. Reportedly underwent heart catheterization, I do not believe she received any percutaneous coronary intervention. She was found to have significant valvular heart disease on transthoracic echocardiogram, official results are not available to me at this time.. Reported affected valves include severe mitral regurgitation and at least moderate to severe aortic regurgitation. Yesterday, patient was transferred to [facility] for ENRIQUE and cardiothoracic surgery consult. Patient is currently in the intensive care unit room 263. She is sitting up in bed on 3 L/min nasal cannula. SpO2 is 100% at rest. Not in any respiratory distress. Reportedly normally wears 2 to 3 L nasal cannula at bedtime. She does have history of COPD and normally utilizes a combination of Trelegy maintenance inhaler and albuterol nebs. She still smokes approximately 1 pack/day. She is wheezing. Denies any infectious symptoms. No change in chronic cough, sputum production, chest pain, fever. We are waiting on chest x-ray. Currently on a combination of Pulmicort, DuoNebs, and IV Solu-Medrol. CBC from outside facility: WBC count 10, hemoglobin 9.9, hematocrit 30.8, platelets 202. BMP from outside facility includes a sodium 143, potassium 4.2, chloride 108, serum bicarb 32, BUN 15, creatinine 0.88, glucose 100. Troponins were mildly elevated. Hemodynamics are stable. On today's evaluation of 02/03/2024, I am seeing the patient for a follow-up. The patient is currently on room air oxygen. ENRIQUE was completed was found to have severe mitral regurgitation, in addition to reversal of flow in the pulmonary veins as well as dilated left atrium and moderate to severe tricuspid regurgitation. Her current cardiac rhythm remains sinus. The patient is hemodynamic stable on room air oxygen. The patient is on DuoNeb nebulized treatments [id number]. The patient is also on IV Solu-Medrol regarding COPD and a dose of 40 mg every 8 hours. Most recent chest x-ray from yesterday showed some mild pulm vascular congestion. Carotid Dopplers showed no critically abnormal stenosis involving the coronary arteries. The patient is awaiting recommendations from cardiothoracic surgery regarding valve surgery. The patient is edentulous. No new labs are available from today. Medications remain unchanged and the patient is currently on Lasix 40 mg p.o. daily the patient is also on metoprolol 75 mg p.o. daily. She is on Celexa and Wellbutrin regarding history of depression. On today's evaluation of 02/04/2024, the patient is being seen for a follow-up. Patient is doing well. She was transferred out of the intensive care unit yesterday. The plan is to proceed with cardiac surgery in the morning. The patient has severe mitral regurgitation and this has been confirmed by ENRIQUE. The patient is scheduled to undergo surgery with mitral valve repair/possible replacement in a.m. on 02/05/2024. The patient is currently on room air oxygen. No signs of any fluid overload. No cardiac arrhythmias. No chest pain. No significant shortness of breath. The white cell count is 12.5 with a hemoglobin 12.1 and a platelet count of 435. Normal coagulation profile. BUN is 36 with a creatinine of 1 and sodium is at 137 and serum bicarbonate 31. LDL cholesterol is at 223. 02/05/2024, the patient is being seen in the intensive care unit immediately after she arrived to the ICU. At this point in time, the patient is sedated and she is on propofol which is at 35 mcg/kg/min. She is well sedated and she is calm and comfortable. She is currently on assist-control mode of mechanical arya tilation at a rate of 14, tidal volume of 350, FiO2 of 100% and a PEEP of 5. Initial blood gases showed a pH of 7.30 with a pCO2 of 49 and pO2 of 422. Based on that, the FiO2 has been dropped down to 50% and I increased the rate up to 20. Chest x-ray was noted and there is no evidence of any pneumothorax. ET tube is in a good location. [place] catheter ideally needs to be advanced by a centimeter. The patient has right-sided chest tube, left-sided chest tube and a mediastinal chest tube. Output from the chest was of been noted. The patient has produced approximately 40 cc of bloody material from the mediastinal chest tube, 30 from the right and 10 from the left. No evidence of any air leak. Hemodynamically, the patient's systolic blood pressure is 97 with a diastolic pressure of 56. Cardiac output is at 2.5 with an index of 1.7. Cardiac rhythm is paced at a rate of 83 and the underlying cardiac rhythm is third-degree AV block. Pulmonary artery pressures of 31/19. SVR is elevated. Currently receiving IV albumin 5% a total of 250cc hide the patient will be also started on milrinone.Patient She may also require norepinephrine for blood pressure support. Urine output is adequate at this point in time. In terms of the blood work, the WBC count is at 7.9, hemoglobin 7.3 and a platelet count of 171. BUN is 26 with a creatinine of 0.77 and a sodium levels of 136. The current temperature is at 36. The patient is sitting external warming measures. Calcium level is at 7.3. 02/06/2024, the patient is being seen for a follow-up. The patient is postop day number 1 following mitral valve and tricuspid valve replacement. The patient was weaned off the mechanical ventilator the patient was extubated yesterday and the patient is currently on room air oxygen. she has no significant respiratory distress. The patient is using the incentive spirometer. Chest x-ray from today shows no evidence of any pneumothorax. Chest tubes are still in place. The mediastinal chest tube Produced 550 cc, left pleural produced 300 cc in the right chest tube was produced 250 cc surgery. The patient's output is serosanguineous/bloody. Hemodynamically, the patient underlying cardiac rhythm is stable third-degree AV block. The patient is being paced at a rate of 80. The patient was started on a combination of milrinone and norepinephrine. Norepinephrine was discontinued the patient is currently on milrinone which is running at 0.2 mcg/kg/min. The most recent hemodynamic parameters show a cardiac output of 3.4 with an index of 2.3. PA pressures of 47/70. CVP is at 9. Noted the patient had received 2 units of packed RBC in the operating room. Hemoglobin stable at 9.8 with a white cell count of 9.1. Platelet count is at 129. BUN is 21 with a creatinine of 0.7. Electrolytes are all within normal limits. The patient is afebrile. Awake and alert and communicating. Beta- blockers are still on hold. 02/07/2024, the patient remains extubated, postop day #2, currently on room air oxygen. Cardiac index was up to 3. Milrinone is being weaned off and this will be discontinued. The right pleural and left lower chest tube will be also removed and the mediastinal chest tube will be kept in place. Hemodynamically stable. Producing adequate amount of urine output. Cardiac rhythm remains paced at the rate of 80. Underlying rhythm remains in third-degree AV block. The blood work from today shows a WBC of 9.2, hemoglobin of 8.6 and a platelet count of 113. Serum bicarb is at 19 but is from the 134 and a BUN of 13 with a creatinine of 0.6. The patient also received a dose of Lasix today given to her by the cardiothoracic team. She is off beta-blockers. Utilizing losartan 12.5 mg for blood pressure control. No other significant events. Awake and alert and communicating. No neurological deficits. Patient was evaluated today on 02/08/2024, she is now postoperative day #3. Patient is status post mitral valve replacement and tricuspid valve repair, postoperative day #3. She is on room air, does not seem to be in any distress, she seems to be doing poorly with incentive spirometry. Hemodynamically stable, cardiac output 4.4 cardiac index is 3 patient received Lasix earlier today 20 mg IV push. Patient may need a permanent pacemaker implantation, and that is yet to be decided by cardiology. Continues to have chest tube in place. Evidence of leak, no evidence of pneumothorax on chest x-ray. Patient has an underlying rhythm of third-degree AV block, and again pacemaker placement is pending WBC count is 7.5 hemoglobin 7.7 electrolytes are normal renal profile is normal chest x-ray showed mostly postoperative changes. No acute process Patient was evaluated today 02/09/2024, patient is in the ICU, she is on room air, she is now postoperative day #4. Mitral valve replacement and tricuspid valve repair, patient is not in any distress, she just came back from the cardiac [employer], she had implantation of Micra AV device for complete heart block post mitral valve repair. Patient has no active pulmonary symptoms, no cough no wheezing no shortness of breath no chest pain. Chest x-ray is reassuring. Labs are basically unremarkable hemoglobin is 7.7 otherwise the rest of the labs are basically normal patient is hemodynamically stable, not requiring any pressors or any inotropes. She is achieving 750 mL on her brandon ntive spirometry. Her mediastinal chest tube was discontinued yesterday. Patient was seen today on 02/10/2024, patient continues to do well, remains in the ICU, she is on room air, asymptomatic, patient is paced, had an echocardiogram today showed small pericardial effusion. This x-ray showed no p ostoperative pleural-parenchymal changes, no evidence of pneumothorax. No evidence of congestive heart failure. Overall the patient is doing great, she is now postoperative day #5 WBC is 10.9 hemoglobin 7.2 electrolytes are normal renal profile is normal liver enzymes are a bit elevated. Patient was seen today on 02/11/2024, patient is feeling better, she has no cough no wheezing no shortness of breath, she does have occasional heartburn and treated with Tums and Maalox. She is also on Protonix twice a day. Patient is achieving 750 mL on her incentive spirometry. She has been ambulating to the bathroom with minimal assistance. All her chest tubes and her epicardial pacemaker wires have been removed. Chest x-ray showed mostly postoperative changes, tiny effusions and scattered pleural-parenchymal density noted no evidence of pneumothorax. Patient was seen today on 02/12/2024, patient is doing great, on room air, does not seem to be in any distress, continues to have symptoms of severe GERD. Patient did receive a unit of packed RBCs yesterday for hemoglobin of 7.4, patient to be seen by gastroenterology regarding her persistent GERD. Celso clifford she is doing great, asymptomatic, no cough no wheezing no shortness of breath CBC today is relatively normal hemoglobin is 8.7 basic metabolic profile is normal, chest x-ray showed minimal basilar atelectasis, no evidence of conges tive heart failure small left pleural effusion is noted. The patient is seen today February 13, 2024 in follow-up on the regular medical floor. She is currently sitting up in a chair at the bedside. Awake and alert in no acute distress. Denies any worsening shortness of breath cough or congest ion. She was given a GI cocktail yesterday and her acid reflux symptoms have subsided. No complaints today. Chest x-ray reveals postoperative changes of mild edema and blunting of the costophrenic angles. She is maintaining good O2 saturations in the 90s on room air. She has been afebrile. Hemodynamically stable. 0.9. Platelets 297. Sodium 136. Potassium 4.3. Bicarb 31. Glucose 73. AST 40. ALT 78. She continues to work well with the incentive spirometer. Heparin for DVT prophylaxis. The patient is seen today February 14, 2024 in follow-up on the regular medical floor. She is awake and alert in no acute distress. Sitting up in a chair at the bedside. Maintaining good O2 saturations in the 90s on room air. She is continued on DuoNeb inhalations, Pulmicort and Perforomist inhalations. Heparin for DVT prophylaxis. Remains on Protonix, Maalox, Tums for her acid reflux. Chest x-ray reveals similar mild cardiomegaly and small pleural effusions with adjacent atelectasis. She continues to work well with the incentive spirometer. White count 10.5. Hemoglobin 9.2. Platelets 303. Sodium 136. Potassium 4.6. Bicarb 29. BUN 10. Creatinine 0.51. Objective - Vital Signs Vital signs: Vital Signs Temp 98.3 F 02/14/24 04:00 Pulse 91 02/14/24 10:23 Resp 16 02/14/24 10:23 BP 130/75 02/14/24 08:00 Pulse Ox 99 02/14/24 08:00 FiO2 40 02/05/24 22:05 Intake & Output 02/13/24 02/14/24 02/14/24 18:59 06:59 18:59 Intake Total 20 10 Output Total 950 Balance 20 -940 Weight 63.8 kg Intake: IV 20 10 Invasive Line 8 20 10 Output: Urine 950 Other: Voiding Method Bedside Commode Bedside Commode Bedside Commode # Bowel Movements 2 ABP, PAP, CO, CI - Last Documented Arterial Blood Pressure 89/39 Pulmonary Artery Pressure 236/236 Cardiac Output 4.4 Cardiac Index 3 - Exam GENERAL EXAM: Alert, 68-year-old female, up in a chair, on room air, in no apparent distress. HEAD: Normocephalic. EYES: Normal reaction of pupils, equal size. NOSE: Clear with pink turbinates. THROAT: No erythema or exudates. NECK: No masses, no JVD. CHEST: No chest wall deformity. Sternum stable. Heart hugger in place. LUNGS: Equal air entry with no crackles, wheeze, rhonchi or dullness. CVS: S1 and S2 normal with no audible murmur, regular rhythm. ABDOMEN: No hepatosplenomegaly, normal bowel sounds, no guarding or rigidity. SPINE: No scoliosis or deformity SKIN: No rashes CENTRAL NERVOUS SYSTEM: No focal deficits, tone is normal in all 4 extremities. EXTREMITIES: There is no peripheral edema. No clubbing, no cyanosis. Peripheral pulses are intact. - Labs CBC & Chem 7: 02/14/24 07:36 02/14/24 07:36 Labs: Abnormal Lab Results - Last 24 Hours (Table) 02/13/24 02/13/24 02/14/24 Range/Units 16:31 20:18 07:36 RBC 2.99 L (3.80-5.40) m/uL Hgb 9.2 L (11.4-16.0) gm/dL Hct 29.7 L (34.0-46.0) % MCHC 30.8 L (31.0-37.0) g/dL RDW 19.0 H (11.5-15.5) % Neutrophils # 9.2 H (1.3-7.7) k/uL Lymphocytes # 0.7 L (1.0-4.8) k/uL Sodium (137-145) mmol/L Creatinine (0.52-1.04) mg/dL POC Glucose (mg/dL) 125 H 120 H (70-110) mg/dL ALT (4-34) U/L Alkaline Phosphatase (38-126) U/L Total Protein (6.3-8.2) g/dL Albumin (3.5-5.0) g/dL 02/14/24 Range/Units 07:36 RBC (3.80-5.40) m/uL Hgb (11.4-16.0) gm/dL Hct (34.0-46.0) % MCHC (31.0-37.0) g/dL RDW (11.5-15.5) % Neutrophils # (1.3-7.7) k/uL Lymphocytes # (1.0-4.8) k/uL Sodium 136 L (137-145) mmol/L Creatinine 0.51 L (0.52-1.04) mg/dL POC Glucose (mg/dL) (70-110) mg/dL ALT 62 H (4-34) U/L Alkaline Phosphatase 128 H (38-126) U/L Total Protein 5.3 L (6.3-8.2) g/dL Albumin 3.4 L (3.5-5.0) g/dL Assessment and Plan Assessment: Status post mitral valve replacement and tricuspid valve repair on February 05, 2024 Status post implantation of Micra AV device for complete heart block on February 09, 2024 COPD, recovered from acute COPD exacerbation Postoperative anemia, acute blood loss anemia, expected Anemia, normocytic normochromic Chronic ongoing tobacco dependence, 1 pack/day smoker with over [id number] history History of hyperlipidemia History of hypertension Chronic back pain and she is on Neurontin, and hydrocodone Depression Migraines cephalgia. Smoker Plan: The patient was seen and evaluated Chest x-ray, labs and medications reviewed Stable and on room air Continued on bronchodilators Working well with the incentive spirometer Plan is for subacute rehabilitation at [facility], probably tomorrow This patient was seen independently by the pulmonary nurse practitioner addressing pulmonary issues I have personally seen and examined the patient, performed the documentation and the assessment and plan as written. Number of minutes spent on the visit: 23.
[2024-02-14 11:56] LABS: Glucose,Whole Blood 90 mg/dL (70-110)
[2024-02-14 16:44] LABS: Glucose,Whole Blood 117 mg/dL (70-110)
--- NOTE | 2024-02-14 20:46 | PN ---
PROGRESS NOTE SUBJECTIVE: She is going to go for rehab tomorrow. GI symptoms improved with Protonix, continues on current treatment. OBJECTIVE: VITAL SIGNS: Stable. Blood pressure 96/61, pulse 82, respiratory rate 16 to 18, pulse is 70s to 80s on room air. We checked for orthostatic hypotension, possibly reduce her medications, but she is orthostatic. Please see further orders. MMODL / IJN: [id number] /
[2024-02-14 20:47] LABS: Glucose,Whole Blood 115 mg/dL (70-110)
[2024-02-15 06:11] LABS: Glucose,Whole Blood 94 mg/dL (70-110)
--- NOTE | 2024-02-15 07:57 | P.PN ---
Progress Note - Text Progress Note Date: 02/15/24 ORTIZ. GERD has improved. Denies Abdominal Pain VSS General-NAD Abdomen-soft, NTND 68-year-old female status post ICU stay was suspected stress gastritis/ulcer -Heart Healthy Diet -Protonix -Daily GI cocktail -Outpatient EGD in 3 months Héctor Villegas [facility] [phone]
--- NOTE | 2024-02-15 08:02 | P.PN ---
Subjective Progress Note Date: 02/15/24 Principal diagnosis: Severe mitral regurgitation, moderate to severe tricuspid regurgitation, moderate aortic insufficiency per transthoracic echocardiogram, severe pulmonary hypertension, acute heart failure with preserved left ventricular systolic function. History of mild CAD, hyperlipidemia, COPD on home oxygen at night and PRN, recent pneumonia, GERD, previous tobacco dependence, occasional marijuana use, family history of coronary artery disease with mother from myocardial infarction in her 70s POD #10 mitral valve replacement with a 29 mm Hannah Mitris resilia bioprosthetic mitral valve, tricuspid valve repair with a 30 mm Hannah MC 3 ring, clip ligation of the left atrial appendage with a 35 mm AtriClip, intraoperative transesophageal echocardiogram performed by anesthesia Acute blood loss anemia, expected given hemodilution and cardiopulmonary bypass pump Third degree heart block, unexpected POD #6 implantation of Micra AV device by Dr. Mead The patient was seen and examined sitting up in recliner this morning on the cardiac stepdown unit in no acute distress. She remains in sinus rhythm, hemodynamically stable although blood pressures are a bit soft, mean arterial pressure has been in the 70s. She remains on room air with oxygen saturation in the mid 90s. Only able to achieve 750 mL on her incentive spirometry. She does report she continues to have heartburn although it is a bit better with daily GI cocktail. She reports being ambulatory in her room, encouraged ambulation out into the hallway. Awaiting insurance authorization for subacute rehab. No other new concerns. Objective - Vital Signs Vital signs: Vital Signs Temp 98.6 F 02/15/24 03:28 Pulse 80 02/15/24 03:28 Resp 16 02/15/24 03:28 BP 97/59 02/15/24 03:28 Pulse Ox 94 L 02/15/24 03:28 FiO2 40 02/05/24 22:05 Intake & Output 02/14/24 02/15/24 02/15/24 18:59 06:59 18:59 Intake Total 540 Output Total 901 802 Balance -361 -802 Weight 62.9 kg Intake: Oral 540 Output: Urine 900 800 Stool 1 2 Other: Voiding Method Bedside Commode Toilet # Voids 1 2 ABP, PAP, CO, CI - Last Documented Arterial Blood Pressure 89/39 Pulmonary Artery Pressure 236/236 Cardiac Output 4.4 Cardiac Index 3 - Exam CONSTITUTIONAL: Appears comfortable, cooperative, no acute distress RESPIRATORY: Lungs sounds diminished bilaterally. Respirations even, nonlabored. Currently on room air with oxygen saturation 94%. Able to achieve 750 mL on incentive spirometry. Strong non-productive cough CARDIOVASCULAR: S1, S2 present. Regular rate and rhythm, sinus rhythm on telemetry. Sternum stable. Palpable peripheral pulses bilaterally. Left upper extremity edema present secondary to IV infiltration. No calf pain or tenderness noted. Heart hugger in place with patient demonstrating appropriate use. Antiembolism stockings, SCDs present. GASTROINTESTINAL: Abdomen soft, nontender, nondistended. Active bowel sounds present 4 quadrants. Tolerating minimal diet. Positive bowel movement 02/13 x 2 GENITOURINARY: Continues to void clear, yellow urine. Output to 1700 mL in the last 24 hours INTEGUMENTARY: Skin is warm and dry, multiple areas of ecchymosis on both arms and her chest. Anterior chest incision well approximated NEUROLOGIC: Cranial nerves II through XII intact MUSKULOSKELETAL: Able to move all extremities, strength equal bilaterally PSYCHIATRIC: Alert and oriented to person place and time, appropriate affect, intact judgment and insight - Allied health notes Allied health notes reviewed: nursing - Labs CBC & Chem 7: 02/15/24 07:44 02/15/24 07:44 Labs: Abnormal Lab Results - Last 24 Hours (Table) 02/14/24 02/14/24 02/14/24 Range/Units 07:36 07:36 16:42 RBC 2.99 L (3.80-5.40) m/uL Hgb 9.2 L (11.4-16.0) gm/dL Hct 29.7 L (34.0-46.0) % MCHC 30.8 L (31.0-37.0) g/dL RDW 19.0 H (11.5-15.5) % Neutrophils # 9.2 H (1.3-7.7) k/uL Lymphocytes # 0.7 L (1.0-4.8) k/uL Sodium 136 L (137-145) mmol/L Creatinine 0.51 L (0.52-1.04) mg/dL POC Glucose (mg/dL) 117 H (70-110) mg/dL ALT 62 H (4-34) U/L Alkaline Phosphatase 128 H (38-126) U/L Total Protein 5.3 L (6.3-8.2) g/dL Albumin 3.4 L (3.5-5.0) g/dL 02/14/24 Range/Units 20:23 RBC (3.80-5.40) m/uL Hgb (11.4-16.0) gm/dL Hct (34.0-46.0) % MCHC (31.0-37.0) g/dL RDW (11.5-15.5) % Neutrophils # (1.3-7.7) k/uL Lymphocytes # (1.0-4.8) k/uL Sodium (137-145) mmol/L Creatinine (0.52-1.04) mg/dL POC Glucose (mg/dL) 115 H (70-110) mg/dL ALT (4-34) U/L Alkaline Phosphatase (38-126) U/L Total Protein (6.3-8.2) g/dL Albumin (3.5-5.0) g/dL - Imaging and Cardiology Chest x-ray: image reviewed Assessment and Plan Assessment: Severe mitral regurgitation, moderate to severe tricuspid regurgitation per ENRIQUE, status post mitral valve replacement, tricuspid valve repair Severe pulmonary hypertension Acute heart failure with preserved left ventricular systolic function, EF 55-60% Third-degree heart block, status post Micra AV device by Dr. Mead History of mild CAD Hyperlipidemia, treated COPD on home oxygen at night and PRN Recent pneumonia still on Levaquin and IV steroids GERD, suspected stress gastritis Previous tobacco dependence, quit 1 month ago, [id number] history Occasional marijuana use Family history of coronary artery disease with mother from myocardial infarction in her 70s Plan: Continue to maximize medical therapy with aspirin, statin, Plavix Continue low dose ARB for afterload reduction Encourage incentive spirometry use 10 times every hour while awake. Bronchodilators per pulmonology Increase activity, ambulate as tolerated, encouraged ambulation in the hallway, discussed with nursing. PT/OT/cardiac rehab following Will monitor daily labs and x-rays. Electrolyte replacement per protocol GI/DVT prophylaxis Pain control per current medication regimen Insulin management per internal medicine. Patient is not diabetic, preoperative hemoglobin A1c 5.1% Continue to monitor strict accurate intake and output Daily weights, shower daily Continue Keflex for 5 days for treatment of phlebitis Continue daily GI cocktail per general surgery, patient will need endoscopy in 3 months Discharge planning in progress, anticipate discharge to [facility] once insurance authorization obtained More recommendations to follow based on patient's progress
[2024-02-15 08:27] LABS: Anisocytosis Slight; HCT 29.6 % (34.0-46.0); HGB 9.2 gm/dL (11.4-16.0); Hypochromasia Marked; MCH 30.7 pg (25.0-35.0); MCV 99.2 fL (80.0-100.0); Macrocytosis Moderate; Mean Platelet Volume 7.5; Platelet Count 315 k/uL (150-450); RBC 2.98 m/uL (3.80-5.40); WBC 12.1 k/uL (3.8-10.6)
[2024-02-15 08:32] LABS: African American GFR (CKD) >90 (>60 ml/min/1.73 sqM); Anion Gap 6 mmol/L; Blood Urea Nitrogen 9 mg/dL (7-17); Calcium 8.7 mg/dL (8.4-10.2); Carbon Dioxide 32 mmol/L (22-30); Chloride 98 mmol/L (98-107); Glucose 93 mg/dL (74-99); Non-African American GFR(CKD) >90 (>60 ml/min/1.73 sqM); Potassium 4.1 mmol/L (3.5-5.1); Sodium 136 mmol/L (137-145)
--- NOTE | 2024-02-15 08:33 | XR ---
EXAMINATION TYPE: XR chest 2V DATE OF EXAM: 02/15/2024 6:24 AM CLINICAL INDICATION: Female, 68 years old with history of Postop Cardiac surgery; [facility] COMPARISON: Chest radiographs from TECHNIQUE: XR chest 2V Frontal view of the chest. FINDINGS: FINDINGS: Lungs/Pleura: There is no evidence of pleural effusion, focal consolidation, or pneumothorax. Pulmonary vascularity: Pulmonary vascular congestion. Heart/mediastinum: Cardiomediastinal silhouette is enlarged. Post aortic valve repair changes. Left atrial appendage occlusion device is present. Musculoskeletal: No acute osseous pathology. Midline sternotomy wires are noted. IMPRESSION: Postoperative change of mild edema and blunting of the costophrenic angles compatible with pleural ef fusions. No significant change. [facility], , 02/15/2024 8:31 AM
[2024-02-15] MEDS: FUROSEMIDE 40 MG TAB PO SCH (09:42)
--- NOTE | 2024-02-15 11:15 | P.DS ---
Providers Date of admission: 02/01/24 15:42 Expected date of discharge: 02/15/24 Attending physician: Guillermo Cody Consults: 02/01/24 17:30 Consult Physician Stat Consulting Provider: Kerwin Bahena Consult Reason/Comments: cardiac management Do you want consulting provider notified?: Yes 02/01/24 17:33 Consult Physician Urgent Consulting Provider: Nishant Leigh Consult Reason/Comments: possible open heart surgery Do you want consulting provider notified?: Yes 02/01/24 18:01 Consult Physician Routine Consulting Provider: Thomas Alvarado Consult Reason/Comments: pulmonary management Do you want consulting provider notified?: Yes 02/04/24 06:44 Consult to Anesthesia Routine Consulting Provider: Anesthesia,Services Consult Reason/Comments: Cardiac Surgery Pre-Op 02/05/24 14:22 Consult Physician Routine Consulting Provider: Raheem Mujica Consult Reason/Comments: med mgmt Do you want consulting provider notified?: Already Contacted 02/11/24 06:52 Consult Physician Routine Consulting Provider: Matti Collins Consult Reason/Comments: Evaluation for inpatient rehab Do you want consulting provider notified?: Yes 02/12/24 09:17 Consult Physician Routine Consulting Provider: Marv Robertson Consult Reason/Comments: Persistent heartburn Do you want consulting provider notified?: Yes Primary care physician: Raheem Mujica [facility] Course: FINAL DIAGNOSIS: Severe mitral regurgitation, moderate to severe tricuspid regurgitation per ENRIQUE Severe pulmonary hypertension Acute heart failure with preserved left ventricular systolic function, EF 55-60% Third-degree heart block History of mild CAD Hyperlipidemia, treated COPD on home oxygen at night and PRN Recent pneumonia GERD, suspected stress gastritis Previous tobacco dependence, quit 1 month ago, [id number] history Occasional marijuana use Family history of coronary artery disease with mother from myocardial infarction in her 70s PRINCIPAL PROCEDURE: Mitral valve replacement with a 29 mm Hannah Mitris resilia bioprosthetic mitral valve Tricuspid valve repair with a 30 mm Hannah MC 3 ring Clip ligation of the left atrial appendage with a 35 mm AtriClip Intraoperative transesophageal echocardiogram performed by anesthesia Implantation of Micra AV device by Dr. Mead HISTORY OF PRESENT ILLNESS: This is a 68-year-old female patient who follows outpatient with Dr. Raheem Mujica for primary care. She presented to [facility] with complaints of shortness of breath at rest and feeling like she could not catch her breath intermittently for 4 weeks. Initially she thought these episodes were panic attacks, however since they continued she presented to the hospital. She also endorsed some chest heaviness but no chest pain, as well as 3 syncopal episodes. She does live by herself and does perform her own ADLs but is not very active due to back pain. She did have a transthoracic echocardiogram completed January 11, 2024 demonstrating normal left ventricular systolic function with EF 55 to 60%, severe mitral regurgitation, moderate to severe tricuspid regurgitation, moderate aortic insufficiency, and severe pulmonary hypertension. She also had heart catheterization on January 15, 2024 revealing no significant coronary disease. She was transferred to [facility] on February 01, 2024 from [facility] for ENRIQUE and consultation to cardiothoracic surgery. ENRIQUE at [facility] confirmed severe mitral regurgitation and moderate to severe tricuspid regurgitation. Due to these findings consultation was placed to cardiothoracic surgery for recommendations. She was seen by Dr. Cody and recommended to undergo mitral valve replacement with tricuspid valve repair. The usual perioperative course was discussed in detail with the patient and her family, all risks and benefits were explained, all questions were answered, and consent was obtained to proceed with surgery. The patient was kept inpatient and scheduled for surgery quickly. HOSPITAL COURSE: The patient was brought to the preoperative area 02/05/24, prepared in the usual fashion, and subsequently taken to the operating room where Dr. Cody performed mitral valve replacement and tricuspid valve repair. Upon completion of surgery the patient was transferred to the cardiovascular intensive care unit where she was recovered and monitored hemodynamically. She was extubated, all lines, tubes, and drips were discontinued when appropriate. Unfortunately she did have third-degree heart block after surgery with need for implantation of Micra AV pacemaker. She was transferred to 3 cardiac stepdown unit for further monitoring and rehabilitation after her pacemaker was placed. Her oxygen was titrated down, she continued to work with physical and o ccupational therapy, she was tolerating oral diet, her pain was controlled, and she was ready to be discharged to [facility] subacute rehab on postoperative day #10. She received written and verbal instruction regarding her medications, activity restrictions, signs and symptoms requiring physician notification, and follow-up appointments. Patient Condition at Discharge: Stable Plan - Discharge Summary New Discharge Prescriptions: New Furosemide [Lasix] 40 mg PO DAILY tab Atorvastatin [Lipitor] 40 mg PO DAILY tab Mag Hydrox/Al Hydrox/Simeth [Maalox] 30 ml PO DAILY@1730 ml Mag Hydrox/Al Hydrox/Simeth [Maalox] 30 ml PO DAILY ml Gabapentin [Neurontin] 100 mg PO TID cap Clopidogrel [Plavix] 75 mg PO DAILY tab Lidocaine Viscous 2% [Xylocaine Viscous] 5 ml MUCOUS MEM DAILY@1730 ml Aspirin 325 mg PO DAILY tab Losartan [Cozaar] 12.5 mg PO DAILY tab Heparin Sodium,Porcine (1 ml) [Heparin Sodium] 5,000 unit SQ Q8HR each Ferrous Sulfate [Iron (65 MG Elemental)] 325 mg PO BID-W/MEALS tab Cephalexin [Keflex] 500 mg PO BID #5 cap Formoterol Fumarate [Perforomist] 20 mcg INHALATION RT-BID ml Pantoprazole [Protonix] 40 mg PO AC-BID tab Budesonide [Pulmicort] 1 mg INHALATION RT-BID ml Sennosides-Docusate Sodium [Senokot-S] 2 each PO HS tab Calcium Carbonate [Tums] 1,000 mg PO QID PRN tab PRN Reason: Heartburn Ascorbic Acid [Vitamin C] 500 mg PO BID-W/MEALS tab Lidocaine Viscous 2% [Xylocaine Viscous] 10 ml MUCOUS MEM DAILY ml Continue Cyanocobalamin (Vitamin B-12) [Vitamin B-12] 1,000 mcg PO DAILY Omeprazole [PriLOSEC] 40 mg PO DAILY Citalopram Hydrobromide [CeleXA] 20 mg PO DAILY Ipratropium-Albuterol Nebulize [Duoneb 0.5 mg-3 mg/3 ml Soln] 3 ml INHALATION RT-QID PRN PRN Reason: Shortness Of Breath Folic Acid 1 mg PO DAILY Cholecalciferol (Vitamin D3) [Vitamin D3 (50 Mcg = 2000 Iu)] 50 mcg PO DAILY Dextroamphetamine/Amphetamine [Adderall] 10 mg PO BID@0700,1400 #60 tab buPROPion SR [Wellbutrin SR] 150 mg PO BID Fluticasone/Umeclidin/Vilanter [Trelegy Ellipta 200-62.5-25] 1 puff INHALATION RT-DAILY Citalopram Hydrobromide [Citalopram HBr] 40 mg PO DAILY HYDROcodone/APAP 10-325MG [[place] 10-325] 1 tab PO TID #90 tab Discontinued Gabapentin [Neurontin] 600 mg PO TID Glycopyrrolate 1 mg PO TID valACYclovir HCL [Valtrex] 1,000 mg PO DAILY PRN PRN Reason: Cold Sores Lactulose 20 gm PO DAILY Brexpiprazole [Rexulti] 1 mg PO DAILY ALPRAZolam [Xanax] 0.25 mg PO Q6H PRN PRN Reason: Anxiety Lovastatin [Mevacor] 20 mg PO HS traZODone HCL 200 mg PO HS PRN PRN Reason: SLEEP Metoprolol Succinate (ER) [Toprol Xl] 50 mg PO DAILY Glycopyrrolate [Robinul] 1 mg PO TID Discharge Medication List Citalopram Hydrobromide [Citalopram HBr] 40 mg PO DAILY 12/26/22 [History] Cyanocobalamin (Vitamin B-12) [Vitamin B-12] 1,000 mcg PO DAILY 12/26/22 [History] Fluticasone/Umeclidin/Vilanter [Trelegy Ellipta 200-62.5-25] 1 puff INHALATION RT-DAILY 12/26/22 [History] Omeprazole [PriLOSEC] 40 mg PO DAILY 12/26/22 [History] buPROPion SR [Wellbutrin SR] 150 mg PO BID 12/26/22 [History] Citalopram Hydrobromide [CeleXA] 20 mg PO DAILY 02/05/23 [History] Ipratropium-Albuterol Nebulize [Duoneb 0.5 mg-3 mg/3 ml Soln] 3 ml INHALATION RT-QID PRN 02/05/23 [History] Cholecalciferol (Vitamin D3) [Vitamin D3 (50 Mcg = 2000 Iu)] 50 mcg PO DAILY 02/01/24 [History] Folic Acid 1 mg PO DAILY 02/01/24 [History] Ascorbic Acid [Vitamin C] 500 mg PO BID-W/MEALS tab 02/15/24 [Rx] Aspirin 325 mg PO DAILY tab 02/15/24 [Rx] Atorvastatin [Lipitor] 40 mg PO DAILY tab 02/15/24 [Rx] Budesonide [Pulmicort] 1 mg INHALATION RT-BID ml 02/15/24 [Rx] Calcium Carbonate [Tums] 1,000 mg PO QID PRN tab 02/15/24 [Rx] Cephalexin [Keflex] 500 mg PO BID #5 cap 02/15/24 [Rx] Clopidogrel [Plavix] 75 mg PO DAILY tab 02/15/24 [Rx] Dextroamphetamine/Amphetamine [Adderall] 10 mg PO BID@0700,1400 #60 tab 02/15/24 [Rx] Ferrous Sulfate [Iron (65 MG Elemental)] 325 mg PO BID-W/MEALS tab 02/15/24 [Rx] Formoterol Fumarate [Perforomist] 20 mcg INHALATION RT-BID ml 02/15/24 [Rx] Furosemide [Lasix] 40 mg PO DAILY tab 02/15/24 [Rx] Gabapentin [Neurontin] 100 mg PO TID cap 02/15/24 [Rx] HYDROcodone/APAP 10-325MG [[place] 10-325] 1 tab PO TID #90 tab 02/15/24 [Rx] Heparin Sodium,Porcine (1 ml) [Heparin Sodium] 5,000 unit SQ Q8HR each 02/15/24 [Rx] Lidocaine Viscous 2% [Xylocaine Viscous] 5 ml MUCOUS MEM DAILY@1730 ml 02/15/24 [Rx] Lidocaine Viscous 2% [Xylocaine Viscous] 10 ml MUCOUS MEM DAILY ml 02/15/24 [Rx] Losartan [Cozaar] 12.5 mg PO DAILY tab 02/15/24 [Rx] Mag Hydrox/Al Hydrox/Simeth [Maalox] 30 ml PO DAILY ml 02/15/24 [Rx] Mag Hydrox/Al Hydrox/Simeth [Maalox] 30 ml PO DAILY@1730 ml 02/15/24 [Rx] Pantoprazole [Protonix] 40 mg PO AC-BID tab 02/15/24 [Rx] Sennosides-Docusate Sodium [Senokot-S] 2 each PO HS tab 02/15/24 [Rx] Follow up Appointment(s)/Referral(s): Cee Ordaz MD [STAFF PHYSICIAN] - 1 Week (Please call for follow up appointment upon discharge from [facility]) Rehab [facility] DIETZ,Cardiac [NON-STAFF] - 4 Weeks (You will receive a phone call in approximately 4-6 weeks for evaluation for cardiac rehab) Raheem Mujica MD [Primary Care Provider] - 1 Week (Please call for follow up appointment upon discharge from [facility]) Héctor Villegas DO [Medical Doctor] - 1 Week (Please call for follow up appointment upon discharge from [facility]) Residential Home,[facility] [NON-STAFF] - 1-2 Days (You should be seen the day after discharge from [facility] by RN, then 2-3 times per week thereafter until you start cardiac rehab. PT/OT will also come out to the house) Lisa Hannah MD [STAFF PHYSICIAN] - 1 Week (Please call for follow up appointment upon discharge from [facility]) Guillermo Cody MD [STAFF PHYSICIAN] - 03/10/24 1:00 pm Ambulatory/Diagnostic Orders: Complete Blood Count w/diff [LAB.AMB] Time Frame: 3 Days, Location: None Selected Comprehensive Metabolic Panel [LAB.AMB] Time Frame: 3 Days, Location: None Selected Activity/Diet/Wound Care/Special Instructions: DISCHARGE INSTRUCTIONS: 1. No driving for 4 weeks, or until physician gives their ok. 2. The patient should sleep in their own bed, no medical bed needed. 3. Stairs are not an issue. If the bedroom is upstairs, it is advised that the patient go up at night and down in the morning for the first week. Go slowly, using handrail and take 1 step at a time. 4. GINA hose are to be worn for 30 days post surgery or until physician discontinues. 5. Heart hugger is to be worn 100% of the time until physician discontinues.(except when showering) 6. No lifting, pushing, or pulling more than 10 pounds for 12 weeks. The physician will advise of any restriction changes. 7. The patient is expected to continue the prescribed walking program. 8. Continue pain control per as needed orders. 9. Continue with incentive spirometry and splinting/heart hugger until otherwise directed by the physician. 10. Must shower daily using liquid antibacterial soap 11. Routine sternal incision care. No powders, lotions, ointments on incisions. No dressings are necessary on incisions unless they are draining. Dermabond tape is to remain on sternal incision until surgeon follow-up. 12. Please call surgeon/ROOM MANAGER for temp greater than 101 F or purulent drainage from incisions. 13. You should weigh yourself daily, record and bring log with you to follow up appointments. 14. All prescriptions given by surgeon for 30 days. Refills need to be filled through bung driver/primary care physician. 15. A Red armband has been placed on the patient. It should be worn for 30 days post discharge from surgery and will be removed by the cardiac surgeons. If an ER visit is necessary, please make sure the number on the Red armband is called before going to ER. 16. You have been referred to and are expected to begin Cardiac Rehab in approximately 4-6 weeks. 17. Quitting smoking is the most important step you can take to improve your health. For additional information and assistance to quit smoking, please call the [place] tobacco quit line (2-297-WMHS-NOW/ ) or online: [email or web address] HOME HEALTH SERVICES TO PROVIDE: RN SKILLED HOME CARE SERVICES FOR POST-OP SURGICAL PATIENTS WITH THE FOLLOWING: Coronary Artery Bypass Surgery (CABG), Mitral Valve Rep lacement/Repair ( MVR), Aortic Valve Replacement/Repair (AVR) RN TO CONTINUE EDUCATION FROM ``ROAD TO A HEALTH HEART PATIENT EDUCATION MANUAL (GIVEN TO PATIENT IN THE HOSPITAL) MEDICATION RECONCILIATION WITH EDUCATION NEEDED ON FIRST HOME VISIT EMPHASIZE IMPORTANCE OF WEARING BREAST SUPPORT/HEART HUGGER ENCOURAGE USE OF INCENTIVE SPIROMETER 10 X EVERY HOUR WHILE AWAKE ENCOURAGE UTILIZATION OF LOWER EXTREMITY COMPRESSION STOCKINGS/GINA HOSE and ELEVATE LEGS ABOVE LEVEL OF HEART WHILE AT REST. ENCOURAGE AMBULATION 3-5x/day INCREASING TOLERATES, WHILE AVOIDING EXTREMES IN TEMPERATURE FREQUENCY: RN TO OPEN THE PATIENT WITHIN 24 HOURS OF DISCHARGE FROM THE HOSPITAL WITH TELEHEALTH INSTALLED AT [facility] [place], RN TO VISIT 2-3 X A WEEK FOR 4 WEEKS ESTABLISHED BY PATIENT NEEDS. LABORATORY: CBC, CMP TO BE DRAWN ON THE THIRD DAY HOME, (RAN STAT) FAX RESULTS TO [phone]. TELEHEALTH PARAMETERS: WEIGHT: NOTIFY MD OF WEIGHT GAIN OF 2 LBS IN 24 HOURS OR 5 LBS IN ONE WEEK HR: NOTIFY MD OF HR <55 BPM OR HR>100 BPM BP: NOTIFY MD IF BP <90/55 OR BP>140/100 O2 SAT: NOTIFY MD IF PO2<93% ON ROOM AIR SEND TELEHEALTH REPORT TO CIRCULAR KNIFE CUTTER MACHINE AND CARDIOVASCULAR SURGEON THE FIRST WEEK OF CARE AND THEN BI-WEEKLY. PLEASE ADDITIONALLY COMMUNICATE ANY ABNORMALS AND NEW FINDINGS TO THE SURGEONS OFFICE. Discharge Disposition: TRANSFER TO SNF/ECF
[2024-02-15 11:25] VITALS: PULSE 88
[2024-02-15 11:35] LABS: Glucose,Whole Blood 111 mg/dL (70-110)
--- NOTE | 2024-02-15 12:20 | P.PN ---
Subjective Progress Note Date: 02/15/24 Principal diagnosis: Valvular heart disease. Patient was seen today on 02/10/2024, patient continues to do well, remains in the ICU, she is on room air, asymptomatic, patient is paced, had an echocardiogram today showed small pericardial effusion. This x-ray showed no postoperative pleural-parenchymal changes, no evidence of pneumothorax. No evidence of congestive heart failure. Overall the patient is doing great, she is now postoperative day #5 WBC is 10.9 hemoglobin 7.2 electrolytes are normal renal profile is normal liver enzymes are a bit elevated. Patient was seen today on 02/11/2024, patient is feeling better, she has no cough no wheezing no shortness of breath, she does have occasional heartburn and treated with Tums and Maalox. She is also on Protonix twice a day. Patient is achieving 750 mL on her incentive spirometry. She has been ambulating to the bathroom with minimal assistance. All her chest tubes and her epicardial pacemaker wires have been removed. Chest x-ray showed mostly postoperative changes, tiny effusions and scattered pleural-parenchymal density noted no evidence of pneumothorax. Patient was seen today on 02/12/2024, patient is doing great, on room air, does not seem to be in any distress, continues to have symptoms of severe GERD. Patient did receive a unit of packed RBCs yesterday for hemoglobin of 7.4, patient to be seen by gastroenterology regarding her persistent GERD. Celso clifford she is doing great, asymptomatic, no cough no wheezing no shortness of breath CBC today is relatively normal hemoglobin is 8.7 basic metabolic profile is normal, chest x-ray showed minimal basilar atelectasis, no evidence of congestive heart failure small left pleural effusion is noted. The patient is seen today February 13, 2024 in follow-up on the regular medical floor. She is currently sitting up in a chair at the bedside. Awake and alert in no acute distress. Denies any worsening shortness of breath cough or congestion. She was given a GI cocktail yesterday and her acid reflux symptoms have subsided. No complaints today. Chest x-ray reveals postoperative changes of mild edema and blunting of the costophrenic angles. She is maintaining good O2 saturations in the 90s on room air. She has been afebrile. Hemodynamically stable. 0.9. Platelets 297. Sodium 136. Potassium 4.3. Bicarb 31. Glucose 73. AST 40. ALT 78. She continues to work well with the incentive spirometer. Heparin for DVT prophylaxis. The patient is seen today February 14, 2024 in follow-up on the regular medical floor. She is awake and alert in no acute distress. Sitting up in a chair at the bedside. Maintaining good O2 saturations in the 90s on room air. She is continued on DuoNeb inhalations, Pulmicort and Perforomist inhalations. Heparin for DVT prophylaxis. Remains on Protonix, Maalox, Tums for her acid reflux. Chest x-ray reveals similar mild cardiomegaly and small pleural effusions with adjacent atelectasis. She continues to work well with the incentive spirometer. White count 10.5. Hemoglobin 9.2. Platelets 303. Sodium 136. Potassium 4.6. Bicarb 29. BUN 10. Creatinine 0.51. Progress note dated February 15, 2024. The patient is seen today in room 354. She is on room air. She is not receiving any IV fluids. The patient is hoping to be discharged today. She denies any chest pain chest discomfort, shortness of breath, cough, wheezing, or any chest complaints whatsoever. Current laboratory data includes a white count 12.1, hemoglobin 9.2, hematocrit 29.6, and a normal platelet count. Sodium 136, potassium 4.1, chlorides 98, CO2 32, BUN 9, creatinine 0.53. Glucose is 111. Calcium 8.7. Objective - Vital Signs Vital signs: Vital Signs Temp 97.5 F L 02/15/24 08:00 Pulse 88 02/15/24 11:54 Resp 16 02/15/24 08:00 BP 102/64 02/15/24 08:00 Pulse Ox 100 02/15/24 08:00 FiO2 40 02/05/24 22:05 Intake & Output 02/14/24 02/15/24 02/15/24 18:59 06:59 18:59 Intake Total 540 Output Total 901 802 301 Balance -361 -802 -301 Weight 62.9 kg Intake: Oral 540 Output: Urine 900 800 300 Stool 1 2 1 Other: Voiding Method Bedside Commode Toilet Toilet # Voids 1 2 ABP, PAP, CO, CI - Last Documented Arterial Blood Pressure 89/39 Pulmonary Artery Pressure 236/236 Cardiac Output 4.4 Cardiac Index 3 - Exam No acute distress, oriented 3. HEENT examination is grossly unremarkable. Mucous membranes are moist. No oral lesions. Neck supple. Full range of motion. No adenopathy thyromegaly or neck vein distention. Cardiovascular examination reveals regular rhythm rate. S1-S2 normal. No S3 or S4. No discernible murmur noted. Lungs reveal clear breath sounds. Breath sounds are equal bilaterally. No adventitious lung sounds including wheezes rhonchi or crackles. Abdomen soft bowel sounds are heard. No masses or tenderness. Extremities are intact. No cyanosis clubbing or edema. Skin is without rash or lesion. Neurologic examination is brief but nonfocal. - Labs CBC & Chem 7: 02/15/24 07:44 02/15/24 07:44 Labs: Abnormal Lab Results - Last 24 Hours (Table) 02/14/24 02/14/24 02/15/24 Range/Units 16:42 20:23 07:44 WBC 12.1 H (3.8-10.6) k/uL RBC 2.98 L (3.80-5.40) m/uL Hgb 9.2 L (11.4-16.0) gm/dL Hct 29.6 L (34.0-46.0) % RDW 19.0 H (11.5-15.5) % Sodium (137-145) mmol/L Carbon Dioxide (22-30) mmol/L POC Glucose (mg/dL) 117 H 115 H (70-110) mg/dL 02/15/24 02/15/24 Range/Units 07:44 11:32 WBC (3.8-10.6) k/uL RBC (3.80-5.40) m/uL Hgb (11.4-16.0) gm/dL Hct (34.0-46.0) % RDW (11.5-15.5) % Sodium 136 L (137-145) mmol/L Carbon Dioxide 32 H (22-30) mmol/L POC Glucose (mg/dL) 111 H (70-110) mg/dL Assessment and Plan Assessment: Status post mitral valve replacement and tricuspid valve repair on February 05, 2024. Status post implantation of Micra AV device for complete heart block on 2023. COPD, recovered from acute COPD exacerbation. Postoperative anemia, acute blood loss anemia, expected. Anemia, normocytic normochromic. Chronic ongoing tobacco dependence, 1 pack/day smoker with over [id number] history. History of hyperlipidemia. History of hypertension. Chronic back pain. Depression. Migraines cephalgia. Plan: Plan dated February 15, 2024. The patient has now been in the hospital for 14 days. She has recovered very nicely. Labs, x-rays, medications are reviewed. The patient is hoping to be discharged today. No additional recommendations are made. Should she not be discharged, for some reason, we will continue to follow the patient. Overall prognosis is thought to be good. Time with Patient: Less than 30
--- NOTE | 2024-02-15 13:17 | P.PN ---
Subjective HISTORY OF PRESENT ILLNESS: Patient examined this morning the bedside. Patient currently denies chest pain or pressure. She denies shortness of breath. Vital signs are stable. She is anticipating discharge today. PHYSICAL EXAM: VITAL SIGNS: Reviewed. GENERAL: Well-developed in no acute distress. NECK: Supple. No JVD or thyromegaly LUNGS: Respirations even and unlabored. Lungs essentially clear to auscultation bilaterally. HEART: Regular rate and rhythm. S1 and S2 heard. EXTREMITIES: Normal range of motion. No clubbing or cyanosis. Peripheral pulses intact. No lower extremity edema ASSESSMENT: Severe mitral regurgitation and moderate to severe tricuspid regurgitation per ENRIQUE Status post bioprosthetic mitral valve replacement and tricuspid valve repair Complete heart block, status post Micra AV device Severe pulmonary hypertension Acute COPD exacerbation, on home oxygen at night and as needed History of hypertension History of hyperlipidemia Nicotine dependence with recent smoking cessation, quit 1 month ago PLAN: Continue current cardiac medications No beta-jose at this time per Dr. Hare. Blood pressure marginal. Will reevaluate on an outpatient basis Patient is stable for discharge to [facility] today from a cardiac standpoint Further recommendations pending patient course Nurse practitioner note has been reviewed by physician. Signing provider agrees with the documented findings, assessment, and plan of care documented by DIRECTOR FINANCIAL ANALYSIS as a scribe. Objective - Vital Signs Vital signs: Vital Signs Temp 97.5 F L 02/15/24 08:00 Pulse 88 02/15/24 11:54 Resp 16 02/15/24 08:00 BP 102/64 02/15/24 08:00 Pulse Ox 100 02/15/24 08:00 FiO2 40 02/05/24 22:05 Intake & Output 02/14/24 02/15/24 02/15/24 18:59 06:59 18:59 Intake Total 540 Output Total 901 802 301 Balance -361 -802 -301 Weight 62.9 kg Intake: Oral 540 Output: Urine 900 800 300 Stool 1 2 1 Other: Voiding Method Bedside Commode Toilet Toilet # Voids 1 2 ABP, PAP, CO, CI - Last Documented Arterial Blood Pressure 89/39 Pulmonary Artery Pressure 236/236 Cardiac Output 4.4 Cardiac Index 3 - Labs CBC & Chem 7: 02/15/24 07:44 02/15/24 07:44 Labs: Abnormal Lab Results - Last 24 Hours (Table) 02/14/24 02/14/24 02/15/24 Range/Units 16:42 20:23 07:44 WBC 12.1 H (3.8-10.6) k/uL RBC 2.98 L (3.80-5.40) m/uL Hgb 9.2 L (11.4-16.0) gm/dL Hct 29.6 L (34.0-46.0) % RDW 19.0 H (11.5-15.5) % Sodium (137-145) mmol/L Carbon Dioxide (22-30) mmol/L POC Glucose (mg/dL) 117 H 115 H (70-110) mg/dL 02/15/24 02/15/24 Range/Units 07:44 11:32 WBC (3.8-10.6) k/uL RBC (3.80-5.40) m/uL Hgb (11.4-16.0) gm/dL Hct (34.0-46.0) % RDW (11.5-15.5) % Sodium 136 L (137-145) mmol/L Carbon Dioxide 32 H (22-30) mmol/L POC Glucose (mg/dL) 111 H (70-110) mg/dL
[2024-02-15 15:43] VITALS: BP 99/66; RESP 18; TEMP 98
--- NOTE | 2024-03-02 20:54 | CDI ---
Documentation Clarification Form Date: 03/02/2024 08:33:32 PM From: Gissell Jacinto Phone: Admit Date: 02/01/2024 03:42:00 PM Patient Name: Rosmery Vazquez Visit Number: [id number] Discharge Date: 02/15/2024 02:43:00 PM ATTENTION: The Clinical Documentation Specialists (CDI) and [facility] Coding Staff appreciate your assistance in clarifying documentation. Please respond to the clarification below the line at the bottom and electronically sign. The CDI & [facility] Coding staff will review the response and follow-up if needed. Please note: Queries are made part of the Legal Health Record. If you have any questions, please contact the author of this message via ITS. Doctor/Provider: Guillermo Cody Keflex 500 mg p.o. twice daily x 5 days initiated for treatment of some phlebitis per Progress Note 02/11 but is not noted in subsequent documentation. Clarification is requested. History/Risk Factors: 68yo F, MR/TR, PHTN, ACDHF, 3HB, CAD, HLD, AECOPD on O2, ACHRF, GERD,suspectedstressgastritis, former smoker <1mo, ABLA Clinical indicators: Skin iswarmand dry, no clubbing or cyanosis is present. Treatment: Keflex 500 mg p.o. twice daily x 5 days Please clarify if the Phlebitis is: [ ] Phlebitis confirmed (please specify vessel): [x ] Phlebitis ruled out [ ] Other, please specify [ ] Unable to determine (Template Last Reviewed: July 2020) MTDD
== END 2024-02-15 14:43 | DRG 219 ==
LOC: 2SICU 15:42 → 3SCARD 02-03 14:10 → 2SICU 02-05 06:35 → 3SCARD 02-10 17:56
PROVIDERS: ADMIT Thoracic Surgery (Cardiothoracic Vascular Surgery); ATTEND Thoracic Surgery (Cardiothoracic Vascular Surgery)
PROC: B24BZZ4 Ultrasonography of Heart with Aorta, Transesophageal (ICD-10-PCS; 2024-02-03)
PROC: 3E033XZ Introduction of Vasopressor into Peripheral Vein, Percutaneous Approach (ICD-10-PCS; 2024-02-04)
PROC: 02L70CK Occlusion of Left Atrial Appendage with Extraluminal Device, Open Approach (ICD-10-PCS; 2024-02-05)
PROC: B24BZZ4 Ultrasonography of Heart with Aorta, Transesophageal (ICD-10-PCS; 2024-02-05)
PROC: 5A1221Z Performance of Cardiac Output, Continuous (ICD-10-PCS; 2024-02-05)
PROC: 30233J1 Transfusion of Nonautologous Serum Albumin into Peripheral Vein, Percutaneous Approach (ICD-10-PCS; 2024-02-05)
PROC: 02RG08Z Replacement of Mitral Valve with Zooplastic Tissue, Open Approach (ICD-10-PCS; principal; 2024-02-05 08:00)
PROC: 02UJ08Z Supplement Tricuspid Valve with Zooplastic Tissue, Open Approach (ICD-10-PCS; 2024-02-05 08:00)
PROC: X2H New Technology, Cardiovascular System, Insertion (ICD-10-PCS; 2024-02-09)
PROC: X2HK3V9 Insertion of Dual-Chamber Intracardiac Pacemaker into Right Ventricle, Percutaneous Approach, New Technology Group 9 (ICD-10-PCS; 2024-02-09)
PROC: 30233N1 Transfusion of Nonautologous Red Blood Cells into Peripheral Vein, Percutaneous Approach (ICD-10-PCS; 2024-02-11)
DX: I08.3 Combined rheumatic disorders of mitral, aortic and tricuspid valves (principal); I50.33 Acute on chronic diastolic (congestive) heart failure; J96.21 Acute and chronic respiratory failure with hypoxia; I44.2 Atrioventricular block, complete; I31.39 Other pericardial effusion (noninflammatory); J44.1 Chronic obstructive pulmonary disease with (acute) exacerbation; D62 Acute posthemorrhagic anemia; I27.22 Pulmonary hypertension due to left heart disease; I11.0 Hypertensive heart disease with heart failure; Z99.81 Dependence on supplemental oxygen; F32.A Depression, unspecified; I25.10 Atherosclerotic heart disease of native coronary artery without angina pectoris; E78.5 Hyperlipidemia, unspecified; K29.60 Other gastritis without bleeding; G89.29 Other chronic pain; K21.9 Gastro-esophageal reflux disease without esophagitis; M54.2 Cervicalgia; G62.9 Polyneuropathy, unspecified; M51.36 Other intervertebral disc degeneration, lumbar region; G43.909 Migraine, unspecified, not intractable, without status migrainosus; Z79.891 Long term (current) use of opiate analgesic; Z76.5 Malingerer [conscious simulation]; Z74.1 Need for assistance with personal care; R00.1 Bradycardia, unspecified; R12 Heartburn; Z79.51 Long term (current) use of inhaled steroids; Z95.1 Presence of aortocoronary bypass graft; Z79.899 Other long term (current) drug therapy; Z87.891 Personal history of nicotine dependence
CPT/HCPCS: 33274; 71045; 71046; 80048; 80053; 80061; 80074; 81001; 81003; 82150; 82330; 82805; 83036; 83690; 83735; 84443; 85025; 85027; 85520; 85610; 85730; 86850; 86891; 86900; 86901; 86920; 87070; 87636; 88305; 93308; 93312; 93320; 93325; 93880; 93922; 94150; 94640; 94760

== ENCOUNTER 2024-02-21 16:52 | Inpatient (IN) | payer MEDICARE, OTHER ==
--- NOTE | 2024-02-21 17:22 | ED ---
Fall HPI - General Chief Complaint: Fall Stated Complaint: fall Time Seen by Provider: 02/21/24 17:10 Source: patient, EMS, RN notes reviewed Mode of arrival: EMS - History of Present Illness Initial Comments: 68-year-old female presenting with right hip pain status post fall 2 hours ago. States she was walking in her home and tripped in her slippers, fell sideways landing on her right hip. Has had difficulty weightbearing since the fall. Denies hitting head or loss of consciousness. She recently underwent open heart surgery on February 07 but denies any chest pain, shortness of breath. She is on blood thinners. Denies any other injuries from the fall. Denies neck/back pain, abdominal pain. - Related Data Home Medications Medication Instructions Recorded Confirmed Citalopram Hydrobromide 40 mg PO DAILY 12/26/22 02/01/24 [Citalopram HBr] Cyanocobalamin (Vitamin B-12) 1,000 mcg PO DAILY 12/26/22 02/01/24 [Vitamin B-12] Fluticasone/Umeclidin/Vilanter 1 puff INHALATION RT-DAILY 12/26/22 02/01/24 [Trelegy Ellipta 200-62.5-25] Omeprazole [PriLOSEC] 40 mg PO DAILY 12/26/22 02/01/24 buPROPion SR [Wellbutrin SR] 150 mg PO BID 12/26/22 02/01/24 Citalopram Hydrobromide [CeleXA] 20 mg PO DAILY 02/05/23 02/01/24 Ipratropium-Albuterol Nebulize 3 ml INHALATION RT-QID PRN 02/05/23 02/01/24 [Duoneb 0.5 mg-3 mg/3 ml Soln] Cholecalciferol (Vitamin D3) 50 mcg PO DAILY 02/01/24 02/01/24 [Vitamin D3 (50 Mcg = 2000 Iu)] Folic Acid 1 mg PO DAILY 02/01/24 02/01/24 Previous Rx's Medication Instructions Recorded Ascorbic Acid [Vitamin C] 500 mg PO BID-W/MEALS tab 02/15/24 Aspirin 325 mg PO DAILY tab 02/15/24 Atorvastatin [Lipitor] 40 mg PO DAILY tab 02/15/24 Budesonide [Pulmicort] 1 mg INHALATION RT-BID ml 02/15/24 Calcium Carbonate [Tums] 1,000 mg PO QID PRN tab 02/15/24 Cephalexin [Keflex] 500 mg PO BID #5 cap 02/15/24 Clopidogrel [Plavix] 75 mg PO DAILY tab 02/15/24 Dextroamphetamine/Amphetamine 10 mg PO BID@0700,1400 #60 tab 02/15/24 [Adderall] Ferrous Sulfate [Iron (65 MG 325 mg PO BID-W/MEALS tab 02/15/24 Elemental)] Formoterol Fumarate [Perforomist] 20 mcg INHALATION RT-BID ml 02/15/24 Furosemide [Lasix] 40 mg PO DAILY tab 02/15/24 Gabapentin [Neurontin] 100 mg PO TID cap 02/15/24 HYDROcodone/APAP 10-325MG [[place] 1 tab PO TID #90 tab 02/15/24 10-325] Heparin Sodium,Porcine (1 ml) 5,000 unit SQ Q8HR each 02/15/24 [Heparin Sodium] Lidocaine Viscous 2% [Xylocaine 5 ml MUCOUS MEM DAILY@1730 ml 02/15/24 Viscous] Lidocaine Viscous 2% [Xylocaine 10 ml MUCOUS MEM DAILY ml 02/15/24 Viscous] Losartan [Cozaar] 12.5 mg PO DAILY tab 02/15/24 Mag Hydrox/Al Hydrox/Simeth 30 ml PO DAILY ml 02/15/24 [Maalox] Mag Hydrox/Al Hydrox/Simeth 30 ml PO DAILY@1730 ml 02/15/24 [Maalox] Pantoprazole [Protonix] 40 mg PO AC-BID tab 02/15/24 Sennosides-Docusate Sodium 2 each PO HS tab 02/15/24 [Senokot-S] Allergies Allergy/AdvReac Type Severity Reaction Status Date / Time amoxicillin [From Augmentin] AdvReac Nausea & Verified 02/21/24 16:56 Vomiting clavulanic acid AdvReac Nausea & Verified 02/21/24 16:56 [From Augmentin] Vomiting Review of Systems ROS Statement: Those systems with pertinent positive or pertinent negative responses have been documented in the HPI. ROS Other: All systems not noted in ROS Statement are negative. Past Medical History Past Medical History: Coronary Artery Disease (CAD), COPD, Hyperlipidemia, Syncope Additional Past Medical History / Comment(s): HAD PNEUMONIA ABOUT 2 WEEKS AGO History of Any Multi-Drug Resistant Organisms: None Reported Past Surgical History: Back Surgery, Section, Heart Catheterization, Tubal Ligation Additional Past Surgical History / Comment(s): L4-L5 decompression Past Anesthesia/Blood Transfusion Reactions: No Reported Reaction Past Psychological History: Depression Smoking Status: Former smoker Past Alcohol Use History: None Reported Past Drug Use History: None Reported - Past Family History Mother Family Medical History: Myocardial Infarction ([place]) Additional Family Medical History / Comment(s): Mother at age 78 from myocardial infarction with history of pneumonia, 3 vessel CABG. Father Additional Family Medical History / Comment(s): Patient recently found out that the man who raised her was not her biological father, unknown history of biological father Brother(s) Additional Family Medical History / Comment(s): Patient has 2 brothers and one has known spinal stenosis. Patient has 2 sisters and one has Crohn's and one has Edvin-Vieira. Patient has one daughter with Crohn's disease. General Exam Limitations: no limitations General appearance: alert, in no apparent distress Head exam: Present: atraumatic, normocephalic, normal inspection Eye exam: Present: normal appearance, PERRL, EOMI. Absent: scleral icterus, conjunctival injection, periorbital swelling Respiratory exam: Present: normal lung sounds bilaterally. Absent: respiratory distress, wheezes, rales, rhonchi, stridor Cardiovascular Exam: Present: regular rate, normal rhythm, normal heart sounds. Absent: systolic murmur, diastolic murmur, rubs, gallop, clicks GI/Abdominal exam: Present: soft, normal bowel sounds. Absent: distended, tenderness, guarding, rebound, rigid Extremities exam: Absent: normal inspection (Old contusions present on bilateral upper arms which patient states is from IV lines from recent admission during CABG) Right Hip exam: Present: normal inspection, tenderness (Diffuse hip tenderness extending to proximal right thigh). Absent: full ROM (Limited flexion and extension of right hip), swelling, abrasion, ecchymosis, deformity, erythema, external rotation, internal rotation, shortening Upper Leg exam: Present: normal inspection, full ROM. Absent: tenderness, swelling Knee exam: Present: normal inspection, full ROM. Absent: tenderness, swelling, abrasion Lower Leg exam: Present: normal inspection, full ROM. Absent: tenderness, swelling Ankle exam: Present: normal inspection, full ROM. Absent: tenderness, swelling Foot/Toe exam: Present: normal inspection, full ROM. Absent: tenderness, swelling Neurovascular tendon exam: Present: no vascular compromise. Absent: pulse deficit, abnormal cap refill, sensory deficit Neurological exam: Present: alert, oriented X3, CN II-XII intact Psychiatric exam: Present: normal affect, normal mood Skin exam: Present: warm, dry, intact, normal color. Absent: rash Course Vital Signs 02/21/24 16:54 Temperature 99.3 F Pulse Rate 92 Respiratory 18 Rate Blood Pressure 104/64 O2 Sat by Pulse 92 L Oximetry Medical Decision Making - Medical Decision Making Was pt. sent in by a medical professional or institution (, PA, FILM CREW MEMBER, urgent care, hospital, or retirement...) When possible be specific @ -No Did you speak to anyone other than the patient for history (EMS, parent, family, police, friend...)? What history was obtained from this source @ -No Did you review nursing and triage notes (agree or disagree)? Why? @ -I reviewed and agree with nursing and triage notes Were old charts reviewed (outside hosp., previous admission, EMS record, old EKG, old radiological studies, urgent care reports/EKG's, retirement records)? Report findings @ -No old charts were reviewed Differential Diagnosis (chest pain, altered mental status, abdominal pain women, abdominal pain men, vaginal bleeding, weakness, fever, dyspnea, syncope, headache, dizziness, GI bleed, back pain, seizure, CVA, palpatations, mental health, musculoskeletal)? @ -Differential Musculoskeletal Muscular strain, contusion, ligament sprain, fracture, arthritis, septic arthritis, bursitis, cellulitis, muscle spasm, nerve compression, DVT, arterial occlusion, herpes zoster, electrolyte abnormality, tumor.... This is not meant to be in all inclusive list EKG interpreted by me (3pts min.). @ -None X-rays interpreted by me (1pt min.). @ -X-ray right hip revealed no acute process CT interpreted by me (1pt min.). @ -CT right hip reveals subtle possibly mildly impacted subcapital fracture of right hip U/S interpreted by me (1pt. min.). @ -None done What testing was considered but not performed or refused? (CT, X-rays, U/S, labs)? Why? @ -None What meds were considered but not given or refused? Why? @ -None Did you discuss the management of the patient with other professionals (professionals i.e. , PA, FILM CREW MEMBER, lab, RT, psych nurse, social insurance specialist, cheese processor, teacher, placement officer, correctional casework specialist)? Give summary @ -I spoke with Dr. Mendoza who accepts admission at this time for right hip fracture with consultation to medicine and cardiology services due to recent open heart surgery Was smoking cessation discussed for >3mins.? @ -No Was critical care preformed (if so, how long)? @ -No Were there social determinants of health that impacted care today? How? (Homelessness, low income, unemployed, alcoholism, drug addiction, transportation, low edu. Level, literacy, decrease access to med. care, [facility], rehab)? @ -No Was there de-escalation of care discussed even if they declined (Discuss DNR or withdrawal of care, Hospice)? DNR status @ -No What co-morbidities impacted this encounter? (DM, HTN, Smoking, COPD, CAD, Cancer, CVA, ARF, Chemo, Hep., AIDS, mental health diagnosis, sleep apnea, morbid obesity)? @ -None Was patient admitted / discharged? Hospital course, mention meds given and route, prescriptions, significant lab abnormalities, going to OR and other pertinent info. @ -Patient was admitted. This is a 68-year-old female presenting with right hip pain status post mechanical fall 2 hours prior to arrival. Denies head injury or loss of consciousness. Patient is having difficulty with weightbearing. Neurovascularly intact. Patient provided with analgesics. X-ray was no acute process, however due to high clinical suspicion of hip fracture, CT was obtained which revealed a subtle possibly mildly impacted subcapital fracture of right hip. Findings discussed with patient. I spoke with Dr. Mendoza who accepts admission at this time for right hip fracture with consultation to medicine and cardiology services due to recent open heart surgery and comorbidities. Preop workup ordered at time of admission including EKG, chest x-ray, CBC, CMP, coagulations, urinalysis. Case was discussed with my ED attending Dr. Pike. Undiagnosed new problem with uncertain prognosis? @ -No Drug Therapy requiring intensive monitoring for toxicity (Heparin, Nitro, Insulin, Cardizem)? @ -No Were any procedures done? @ -No Diagnosis/symptom? @ -Right hip fracture Acute, or Chronic, or Acute on Chronic? @ -Acute Uncomplicated (without systemic symptoms) or Complicated (systemic symptoms)? @ -Uncomplicated Side effects of treatment? @ -No Exacerbation, Progression, or Severe Exacerbation? @ -No Poses a threat to life or bodily function? How? (Chest pain, [place], [place], pneumonia, PE, COPD, DKA, ARF, appy, cholecystitis, CVA, Diverticulitis, Homicidal, Suicidal, threat to staff... and all critical care pts) @ -Possibly Disposition Clinical Impression: Closed right hip fracture Disposition: ADMITTED IP TO THIS HOSP Referrals: Raheem Mujica MD [Primary Care Provider] - 1-2 days Time of Disposition: 20:09
[2024-02-21] MEDS: MORPHINE SULFATE 2 MG/ML SYRINGE IVP ONE ×2 (17:26→18:14)
--- NOTE | 2024-02-21 17:57 | XR ---
EXAMINATION TYPE: XR Hip Complete RT DATE OF EXAM: 02/21/2024 5:46 PM CLINICAL INDICATION:Female, 68 years old with history of right hip injury; [facility] COMPARISON: None. TECHNIQUE: The right hip was examined in the frontal and lateral projections and a AP pelvis. FINDINGS: No evidence for acute process, joint dislocation or significant soft tissue swelling. Mild osteoarthritic changes of the right hip joint are present. IMPRESSION: No acute process. [facility], , 02/21/2024 5:55 PM
--- NOTE | 2024-02-21 19:18 | CT ---
EXAMINATION TYPE: CT hip RT wo con DATE OF EXAM: 02/21/2024 COMPARISON: 02/21/2024 plain film HISTORY: Right hip pain after tripping and falling. CT DLP: 424 mGycm Automated exposure control for dose reduction was used. Contrast: None Technique: Axial images 3 mm thick sections. Reconstructed images in the coronal and sagittal plane. Three-D reconstructed images are reviewed on the computer. FINDINGS: A very subtle subcapital fracture appears to be present. Femoral neck may be slightly impacted on the femoral head. Some anterior femoral head spurring may be present. No joint effusion is evident. IMPRESSION: 1. SUBTLE POSSIBLY MILDLY IMPACTED SUBCAPITAL FRACTURE RIGHT HIP [facility], Workstation: [facility], 02/21/2024 7:15 PM
[2024-02-21] MEDS ORDERED: NALOXONE 0.4 MG/ML 1 ML VIAL IV PRN (20:01)
[2024-02-21] MEDS: SODIUM CHLORIDE 0.9% 1,000 ML IV SCH (20:11)
[2024-02-21] MEDS: HYDROmorphone 0.5 MG/0.5 ML SYRINGE IVP PRN (20:27)
[2024-02-21] MEDS: LORazepam 2 MG/ML INJ IV STA (20:28)
--- NOTE | 2024-02-21 20:34 | XR ---
EXAMINATION TYPE: XR chest 1V DATE OF EXAM: 02/21/2024 COMPARISON: 02/15/2024 INDICATION: Postop evaluation TECHNIQUE: Single frontal view of the chest is obtained. FINDINGS: The heart size is enlarged. Sternotomy wires from cardiac valve surgery is evident. The pulmonary vasculature is normal. Mild right lower lobe infiltrate and/or pleural effusion is present. Minimal left pleural effusion bl unting the costophrenic angle IMPRESSION: 1. Small bilateral pleural effusions with mild right lower lobe infiltrate. Correlate for atelectasis . [facility], Workstation: [facility], 02/21/2024 8:32 PM
[2024-02-21 20:40] LABS: Anisocytosis Slight; Basophils % (A) 0 %; Eosinophils # (A) 0.1 k/uL (0-0.7); Eosinophils % (A) 1 %; HCT 24.7 % (34.0-46.0); HGB 8.1 gm/dL (11.4-16.0); Hypochromasia Slight; Lymphocytes # (A) 0.8 k/uL (1.0-4.8); Lymphocytes % (A) 13 %; MCH 31.5 pg (25.0-35.0); MCHC 32.6 g/dL (31.0-37.0); MCV 96.8 fL (80.0-100.0); Macrocytosis Slight; Mean Platelet Volume 7.9; Monocytes # (A) 0.3 k/uL (0-1.0); Monocytes % (A) 5 %; Neutrophils # (A) 4.9 k/uL (1.3-7.7); Neutrophils % (A) 80 %; Platelet Count 306 k/uL (150-450); RBC 2.56 m/uL (3.80-5.40); RDW 18.2 % (11.5-15.5); WBC 6.2 k/uL (3.8-10.6)
[2024-02-21 20:52] LABS: Partial Thromboplastin Time 27.4 sec (22.0-30.0)
[2024-02-21 21:00] LABS: ALT 21 U/L (4-34); AST 28 U/L (14-36); African American GFR (CKD) >90 (>60 ml/min/1.73 sqM); Alkaline Phosphatase 98 U/L (38-126); Anion Gap 5 mmol/L; Blood Urea Nitrogen 13 mg/dL (7-17); Calcium 8.3 mg/dL (8.4-10.2); Carbon Dioxide 29 mmol/L (22-30); Chloride 102 mmol/L (98-107); Glucose 84 mg/dL (74-99); Non-African American GFR(CKD) >90 (>60 ml/min/1.73 sqM); Potassium 3.2 mmol/L (3.5-5.1); Sodium 136 mmol/L (137-145); Total Bilirubin 0.5 mg/dL (0.2-1.3); Total Protein 4.9 g/dL (6.3-8.2)
[2024-02-22] MEDS: MORPHINE SULFATE 4 MG/ML SYRINGE IV PRN (02:22)
[2024-02-22 03:06] LABS: Appearance,Urine Clear (Clear); Bacteria,Urine Rare /hpf; Bilirubin,Urine Negative (Negative); Blood,Urine Negative (Negative); Color,Urine Light Yellow; Glucose,Urine (UA) Negative (Negative); Hyaline Casts,Urine 4 /lpf (0-2); Ketones,Urine Negative (Negative); Leukocyte Esterase,Urine Small (Negative); Mucus,Urine Rare /hpf; Nitrite,Urine Negative (Negative); PH, Urine 6.5 (5.0-8.0); Protein,Urine Negative (Negative); RBC,Urine 1 /hpf (0-5); Specific Gravity,Urine 1.013 (1.001-1.035); Squamous Epithelial Cell,Urine 2 /hpf (0-4); Urobilinogen,Urine <2.0 mg/dL (<2.0); WBC,Urine 7 /hpf (0-5)
[2024-02-22 06:50] LABS: Glucose,Whole Blood 116 mg/dL (70-110)
--- NOTE | 2024-02-22 08:11 | P.HPOR ---
History of Present Illness H&P Date: 02/22/24 pleasant 68-year-old female with multiple medical problems including having recently undergone open heart surgery 2 weeks ago who presents following a ground-level fall with a right hip fracture. I met with the patient this morning in the emergency department. She is complaining of isolated pain in her right hip. She is unsure if she was able to walk after she fell. She has no extensive medical history. Past Medical History Past Medical History: Coronary Artery Disease (CAD), COPD, Hyperlipidemia, Syncope Additional Past Medical History / Comment(s): HAD PNEUMONIA ABOUT 2 WEEKS AGO History of Any Multi-Drug Resistant Organisms: None Reported Past Surgical History: Back Surgery, Section, Heart Catheterization, Tubal Ligation Additional Past Surgical History / Comment(s): L4-L5 decompression. 02/08/2024 Open Heart Past Anesthesia/Blood Transfusion Reactions: No Reported Reaction Past Psychological History: Depression Smoking Status: Former smoker Past Alcohol Use History: None Reported Additional Past Alcohol Use History / Comment(s): < 1 pack per day smoker. Patient smoked for 45 years. No illicit drug use, no alcohol use. Past Drug Use History: None Reported Additional Drug Use History / Comment(s): Occasional marijuana Gummies - Past Family History Mother Family Medical History: Myocardial Infarction ([place]) Additional Family Medical History / Comment(s): Mother at age 78 from myocardial infarction with history of pneumonia, 3 vessel CABG. Father Additional Family Medical History / Comment(s): Patient recently found out that the man who raised her was not her biological father, unknown history of biological father Brother(s) Additional Family Medical History / Comment(s): Patient has 2 brothers and one has known spinal stenosis. Patient has 2 sisters and one has Crohn's and one has Edvin-Vieira. Patient has one daughter with Crohn's disease. Medications and Allergies Home Medications Medication Instructions Recorded Confirmed Type Citalopram Hydrobromide 40 mg PO DAILY 12/26/22 02/01/24 History [Citalopram HBr] Cyanocobalamin (Vitamin B-12) 1,000 mcg PO DAILY 12/26/22 02/01/24 History [Vitamin B-12] Fluticasone/Umeclidin/Vilanter 1 puff INHALATION RT-DAILY 12/26/22 02/01/24 History [Trelegy Ellipta 200-62.5-25] Omeprazole [PriLOSEC] 40 mg PO DAILY 12/26/22 02/01/24 History buPROPion SR [Wellbutrin SR] 150 mg PO BID 12/26/22 02/01/24 History Citalopram Hydrobromide [CeleXA] 20 mg PO DAILY 02/05/23 02/01/24 History Ipratropium-Albuterol Nebulize 3 ml INHALATION RT-QID PRN 02/05/23 02/01/24 History [Duoneb 0.5 mg-3 mg/3 ml Soln] Cholecalciferol (Vitamin D3) 50 mcg PO DAILY 02/01/24 02/01/24 History [Vitamin D3 (50 Mcg = 2000 Iu)] Folic Acid 1 mg PO DAILY 02/01/24 02/01/24 History Ascorbic Acid [Vitamin C] 500 mg PO BID-W/MEALS tab 02/15/24 Rx Aspirin 325 mg PO DAILY tab 02/15/24 Rx Atorvastatin [Lipitor] 40 mg PO DAILY tab 02/15/24 Rx Budesonide [Pulmicort] 1 mg INHALATION RT-BID ml 02/15/24 Rx Calcium Carbonate [Tums] 1,000 mg PO QID PRN tab 02/15/24 Rx Cephalexin [Keflex] 500 mg PO BID #5 cap 02/15/24 Rx Clopidogrel [Plavix] 75 mg PO DAILY tab 02/15/24 Rx Dextroamphetamine/Amphetamine 10 mg PO BID@0700,1400 #60 tab 02/15/24 Rx [Adderall] Ferrous Sulfate [Iron (65 MG 325 mg PO BID-W/MEALS tab 02/15/24 Rx Elemental)] Formoterol Fumarate [Perforomist] 20 mcg INHALATION RT-BID ml 02/15/24 Rx Furosemide [Lasix] 40 mg PO DAILY tab 02/15/24 Rx Gabapentin [Neurontin] 100 mg PO TID cap 02/15/24 Rx HYDROcodone/APAP 10-325MG [[place] 1 tab PO TID #90 tab 02/15/24 Rx 10-325] Heparin Sodium,Porcine (1 ml) 5,000 unit SQ Q8HR each 02/15/24 Rx [Heparin Sodium] Lidocaine Viscous 2% [Xylocaine 5 ml MUCOUS MEM DAILY@1730 ml 02/15/24 Rx Viscous] Lidocaine Viscous 2% [Xylocaine 10 ml MUCOUS MEM DAILY ml 02/15/24 Rx Viscous] Losartan [Cozaar] 12.5 mg PO DAILY tab 02/15/24 Rx Mag Hydrox/Al Hydrox/Simeth 30 ml PO DAILY ml 02/15/24 Rx [Maalox] Mag Hydrox/Al Hydrox/Simeth 30 ml PO DAILY@1730 ml 02/15/24 Rx [Maalox] Pantoprazole [Protonix] 40 mg PO AC-BID tab 02/15/24 Rx Sennosides-Docusate Sodium 2 each PO HS tab 02/15/24 Rx [Senokot-S] Allergies Allergy/AdvReac Type Severity Reaction Status Date / Time amoxicillin [From Augmentin] AdvReac Nausea & Verified 02/22/24 07:58 Vomiting clavulanic acid AdvReac Nausea & Verified 02/22/24 07:58 [From Augmentin] Vomiting Physical Examination the patient is resting in her bed. She appears quite ill. She demonstrates labored breathing. She has a healing incision over her sternum from recent open-heart surgery. She has ecchymosis in both of her arms. Both upper extremities and the left lower extremity are without deformity. Her right lower extremity is without deformity. Her thigh is soft. She has pain with any attempts at passive range of motion. Her thigh and calf are soft. She is able to actively plantarflex and dorsiflex her ankle and her toes. Results x-rays and computed tomography scan of the right hip show a minimally displaced and impacted [place] 2 femoral neck fracture. The posterior tilt angle is less then 20. - Labs Labs: Abnormal Lab Results - Last 24 Hours (Table) 02/21/24 02/21/24 02/22/24 Range/Units 20:25 20:25 02:39 RBC 2.56 L (3.80-5.40) m/uL Hgb 8.1 L (11.4-16.0) gm/dL Hct 24.7 L (34.0-46.0) % RDW 18.2 H (11.5-15.5) % Lymphocytes # 0.8 L (1.0-4.8) k/uL Sodium 136 L (137-145) mmol/L Potassium 3.2 L (3.5-5.1) mmol/L POC Glucose (mg/dL) (70-110) mg/dL Calcium 8.3 L (8.4-10.2) mg/dL Total Protein 4.9 L (6.3-8.2) g/dL Albumin 3.0 L (3.5-5.0) g/dL Ur Leukocyte Esterase Small H (Negative) Urine WBC 7 H (0-5) /hpf Urine Bacteria Rare H (None) /hpf Hyaline Casts 4 H (0-2) /lpf Urine Mucus Rare H (None) /hpf 02/22/24 Range/Units 06:48 RBC (3.80-5.40) m/uL Hgb (11.4-16.0) gm/dL Hct (34.0-46.0) % RDW (11.5-15.5) % Lymphocytes # (1.0-4.8) k/uL Sodium (137-145) mmol/L Potassium (3.5-5.1) mmol/L POC Glucose (mg/dL) 116 H (70-110) mg/dL Calcium (8.4-10.2) mg/dL Total Protein (6.3-8.2) g/dL Albumin (3.5-5.0) g/dL Ur Leukocyte Esterase (Negative) Urine WBC (0-5) /hpf Urine Bacteria (None) /hpf Hyaline Casts (0-2) /lpf Urine Mucus (None) /hpf H & H 02/21/24 Range/Units 20:25 Hgb 8.1 L (11.4-16.0) gm/dL Hct 24.7 L (34.0-46.0) % Coagulation 02/21/24 Range/Units 20:25 INR 1.0 (<1.2) Result Diagrams: 02/21/24 20:25 02/21/24 20:25 Assessment and Plan Assessment: nondisplaced and minimally impacted Garden 2 femoral neck fracture Recent open heart surgery Hemoglobin of 8.1 on presentation to the hospital Multiple medical comorbidities Plan: I long discussion with the patient this morning on treatment of her femoral neck fracture. Her fracture appears to be minimally displaced, impacted and has a posterior tilt angle of less than 20. We discussed both arthroplasty and in situ screw fixation. The advantages of either a total or partial hip replacement would be definitive procedure and immediate weightbearing but requires a much more involved surgery. The advantage of in situ screw fixation is that it is a much less invasive surgery with less surgical morbidity but requires a prolonged period of toe touch weightbearing and given the patient's poor bone quality could fail. Given the patient's overall medical condition I think that she would be best treated at this time with in situ screw fixation r ealizing the potential for failure of screw fixation which may require conversion to arthroplasty in the future if she is medically stable. Internal medicine and cardiology have been consulted. I would request the patient transferred care to internal medicine today given the fact that she had open heart surgery 2 weeks ago, has a hemoglobin of 8.1, appears short of breath at rest on the gurney in the ER and is a very complicated medical patient. I've complied with the hospital's trauma protocol to admit the patient given her hip fracture but again would request transfer to internal medicine today given the above. When the patient is medically stable we'll plan for surgery after clearance from internal medicine and cardiology. In the interim she is to remain strictly nonweightbearing on bedrest on the right lower extremity. Her condition is certainly guarded. She seems to understand this. Time with Patient: Greater than 30
[2024-02-22] MEDS ORDERED: CALCIUM CARBONATE 500 MG CHEWABLE PO PRN (08:56)
--- NOTE | 2024-02-22 10:06 | P.GSCN ---
History of Present Illness Consult date: 02/22/24 Reason for Consult: Known to our service from recent open heart Requesting physician: Raheem Mujica History of present illness: This is a 68-year-old female patient who follows outpatient with Dr. Raheem Mujica for primary care. She was recently hospitalized for complaints of shortness of breath at rest and feeling like she could not catch her breath intermittently for 4 weeks. Initially she thought these episodes were panic attacks, however since they continued she presented to the hospital. She also endorsed some chest heaviness but no chest pain, as well as 3 syncopal episodes. She does live by herself and does perform her own ADLs but is not very active due to back pain. She did have a transthoracic echocardiogram completed January 11, 2024 demonstrating normal left ventricular systolic function with EF 55 to 60%, severe mitral regurgitation, moderate to severe tricuspid regurgitation, moderate aortic insufficiency, and severe pulmonary hypertension. She also had heart catheterization on January 15, 2024 revealing no significant coronary disease. She was transferred to [facility] on February 01, 2024 from [facility] [place] for ENRIQUE and consultation to cardiothoracic surgery. ENRIQUE at [facility] confirmed severe mitral regurgitation and moderate to severe tricuspid regurgitation. Due to these findings consultation was placed to Dr. Cody who recommended mitral valve replacement with tricuspid valve repair. This was completed 02/05/24. Her recovery was complicated by third- degree heart block and she did receive Micra AV device implantation by Dr. Mead. She was transferred to 3 S. cardiac stepdown unit for further monitoring and rehabilitation after her pacemaker was placed, her oxygen was titrated down, she continued to work with physical and occupational therapy, she was tolerating oral diet, her pain was controlled, and she was ready to be discharged to [facility] subacute rehab on postoperative day #10. She can recontinue to recover at [facility] uneventfully and was discharged to home on Thursday, February 19, 2024. She continued to do well, however she unfortunately tripped over her slippers yesterday and fell on her right side with significant right sided hip pain. She presented back to [facility] emergency room for evaluation and treatment. X-ray of her hip really did not show any acute process, however CT of the hip demonstrated right sided femoral neck fracture. She was seen by orthopedics with plans for surgical repair once cleared by cardiology. Consultation was placed to cardiothoracic surgery due to recent open heart surgery. Review of Systems Review of systems was completed and was negative except as noted - Cardiovascular Reports shortness of breath - Musculoskeletal right: hip pain Past Medical History Past Medical History: Coronary Artery Disease (CAD), Heart Failure, COPD, GERD/Reflux, Hyperlipidemia, Pneumonia, Syncope Additional Past Medical History / Comment(s): Severe mitral regurgitation, moderate to severe tricuspid regurgitation, severe pulmonary hypertension, third-degree heart block History of Any Multi-Drug Resistant Organisms: None Reported Past Surgical History: Back Surgery, Section, Heart Catheterization, Pacemaker, Tubal Ligation Additional Past Surgical History / Comment(s): L4-L5 decompression. 02/05/2024 mitral valve replacement (29mm Hannah Mitris resilia), tricuspid valve repair (30 mm Hannah MC3 ring), ligation left atrial appendage (35 mm Atriclip). 02/09/24 implantation of micra AV device Past Anesthesia/Blood Transfusion Reactions: No Reported Reaction Type of Cardiac Device: Permanent Pacemaker Device Placement Date:: 02/09/24 Past Psychological History: Depression Smoking Status: Former smoker Past Alcohol Use History: None Reported Additional Past Alcohol Use History / Comment(s): < 1 pack per day smoker. Patient smoked for 45 years. No illicit drug use, no alcohol use. Past Drug Use History: Marijuana Additional Drug Use History / Comment(s): Occasional marijuana Gummies - Past Family History Mother Family Medical History: Myocardial Infarction ([place]) Additional Family Medical History / Comment(s): Mother at age 78 from myocardial infarction with history of pneumonia, 3 vessel CABG. Father Additional Family Medical History / Comment(s): Patient recently found out that the man who raised her was not her biological father, unknown history of biological father Brother(s) Additional Family Medical History / Comment(s): Patient has 2 brothers and one has known spinal stenosis. Patient has 2 sisters and one has Crohn's and one has Edvin-Vieira. Patient has one daughter with Crohn's disease. Medications and Allergies Home Medications Medication Instructions Recorded Confirmed Type Citalopram Hydrobromide 40 mg PO DAILY 12/26/22 02/22/24 History [Citalopram HBr] Cyanocobalamin (Vitamin B-12) 1,000 mcg PO DAILY 12/26/22 02/22/24 History [Vitamin B-12] buPROPion SR [Wellbutrin SR] 150 mg PO BID 12/26/22 02/22/24 History Citalopram Hydrobromide [CeleXA] 20 mg PO DAILY 02/05/23 02/22/24 History Ipratropium-Albuterol Nebulize 3 ml INHALATION RT-QID PRN 02/05/23 02/22/24 History [Duoneb 0.5 mg-3 mg/3 ml Soln] Cholecalciferol (Vitamin D3) 50 mcg PO DAILY 02/01/24 02/22/24 History [Vitamin D3 (50 Mcg = 2000 Iu)] Folic Acid 1 mg PO DAILY 02/01/24 02/22/24 History Ascorbic Acid [Vitamin C] 500 mg PO BID-W/MEALS tab 02/15/24 02/22/24 Rx Calcium Carbonate [Tums] 1,000 mg PO QID PRN tab 02/15/24 02/22/24 Rx Clopidogrel [Plavix] 75 mg PO DAILY tab 02/15/24 02/22/24 Rx Ferrous Sulfate [Iron (65 MG 325 mg PO BID-W/MEALS tab 02/15/24 02/22/24 Rx Elemental)] Furosemide [Lasix] 40 mg PO DAILY tab 02/15/24 02/22/24 Rx Losartan [Cozaar] 12.5 mg PO DAILY tab 02/15/24 02/22/24 Rx Pantoprazole [Protonix] 40 mg PO AC-BID tab 02/15/24 02/22/24 Rx Atorvastatin [Lipitor] 40 mg PO HS 02/22/24 02/22/24 History Budesonide [Pulmicort] 1 mg INHALATION RT-BID@0800,0 02/22/24 02/22/24 History Dextroamphetamine/Amphetamine 10 mg PO BID@0700,1700 02/22/24 02/22/24 History [Adderall] Formoterol Fumarate [Perforomist] 20 mcg INHALATION RT-BID@0800,0 02/22/24 02/22/24 History Lidocaine Viscous 2% [Xylocaine 10 ml MUCOUS MEM W/SUPPER 02/22/24 02/22/24 History Viscous] Mag Hydrox/Al Hydrox/Simeth 30 ml PO W/SUPPER 02/22/24 02/22/24 History [Maalox] ALPRAZolam [Xanax] 0.25 mg PO TID PRN tab 03/02/24 Rx Aspirin 81 mg PO DAILY tab 03/02/24 Rx Dapagliflozin Propanediol [Farxiga] 10 mg PO DAILY 30 Days #30 tab 03/02/24 Rx Ipratropium-Albuterol Nebulize 3 ml INHALATION RT-QID each 03/02/24 Rx [Duoneb 0.5 mg-3 mg/3 ml Soln] Metoprolol Succinate (ER) [Toprol 25 mg PO DAILY tab 03/02/24 Rx XL] Sennosides-Docusate Sodium 2 each PO HS tab 03/02/24 Rx [Senokot-S] Spironolactone [Aldactone] 25 mg PO DAILY tab 03/02/24 Rx traMADol HCl [Ultram] 100 mg PO TID tab 03/02/24 Rx Allergies Allergy/AdvReac Type Severity Reaction Status Date / Time amoxicillin [From Augmentin] AdvReac Nausea & Verified 02/22/24 07:58 Vomiting clavulanic acid AdvReac Nausea & Verified 02/22/24 07:58 [From Augmentin] Vomiting Surgical - Exam Vital Signs Temp Pulse Resp BP Pulse Ox 99.3 F 92 18 104/64 92 L 02/21/24 16:54 02/21/24 16:54 02/21/24 16:54 02/21/24 16:54 02/21/24 16:54 CONSTITUTIONAL: Awake and alert, appears somewhat comfortable, cooperative, well-developed, no acute distress EYES: Pupils equal, round, reactive to light, normal ocular movement ENT: Moist mucous membranes without oral lesions present NECK: No masses, no bruits, trachea midline RESPIRATORY: Lungs sounds diminished to auscultation bilaterally. Respirations even, nonlabored. Currently on 2 L nasal cannula with oxygen saturation 95%. Strong nonproductive cough. Able to achieve 500 mL on her incentive spirometry CARDIOVASCULAR: S1, S2 present. Regular rate and rhythm. Sternum stable. Palpable peripheral pulses bilaterally. No edema present. No calf pain or tenderness noted GASTROINTESTINAL: Abdomen soft, nontender, nondistended without masses or organomegaly noted. There is no rebound or guarding present. Active bowel sounds present 4 quadrants. GENITOURINARY: Deferred INTEGUMENTARY: Skin is warm and dry, multiple areas of ecchymosis to her arms and chest which were present on previous admission NEUROLOGIC: Cranial nerves II through XII intact, normal coordination, no obvious motor or sensory deficits, speech is normal MUSKULOSKELETAL: Able to move all extremities, strength equal bilaterally, normal posture PSYCHIATRIC: Alert and oriented to person place and time, appropriate affect, intact judgment and insight Results - Labs 03/01/24 07:16 03/01/24 07:16 Abnormal Lab Results - Last 24 Hours (Table) 02/21/24 02/21/24 02/22/24 Range/Units 20:25 20:25 02:39 RBC 2.56 L (3.80-5.40) m/uL Hgb 8.1 L (11.4-16.0) gm/dL Hct 24.7 L (34.0-46.0) % RDW 18.2 H (11.5-15.5) % Lymphocytes # 0.8 L (1.0-4.8) k/uL Sodium 136 L (137-145) mmol/L Potassium 3.2 L (3.5-5.1) mmol/L POC Glucose (mg/dL) (70-110) mg/dL Calcium 8.3 L (8.4-10.2) mg/dL Total Protein 4.9 L (6.3-8.2) g/dL Albumin 3.0 L (3.5-5.0) g/dL Ur Leukocyte Esterase Small H (Negative) Urine WBC 7 H (0-5) /hpf Urine Bacteria Rare H (None) /hpf Hyaline Casts 4 H (0-2) /lpf Urine Mucus Rare H (None) /hpf 02/22/24 Range/Units 06:48 RBC (3.80-5.40) m/uL Hgb (11.4-16.0) gm/dL Hct (34.0-46.0) % RDW (11.5-15.5) % Lymphocytes # (1.0-4.8) k/uL Sodium (137-145) mmol/L Potassium (3.5-5.1) mmol/L POC Glucose (mg/dL) 116 H (70-110) mg/dL Calcium (8.4-10.2) mg/dL Total Protein (6.3-8.2) g/dL Albumin (3.5-5.0) g/dL Ur Leukocyte Esterase (Negative) Urine WBC (0-5) /hpf Urine Bacteria (None) /hpf Hyaline Casts (0-2) /lpf Urine Mucus (None) /hpf Diabetes panel 02/21/24 Range/Units 20:25 Sodium 136 L (137-145) mmol/L Potassium 3.2 L (3.5-5.1) mmol/L Chloride 102 (98-107) mmol/L Carbon Dioxide 29 (22-30) mmol/L BUN 13 (7-17) mg/dL Creatinine 0.60 (0.52-1.04) mg/dL Glucose 84 (74-99) mg/dL Calcium 8.3 L (8.4-10.2) mg/dL AST 28 (14-36) U/L ALT 21 (4-34) U/L Alkaline Phosphatase 98 (38-126) U/L Total Protein 4.9 L (6.3-8.2) g/dL Albumin 3.0 L (3.5-5.0) g/dL Calcium panel 02/21/24 Range/Units 20:25 Calcium 8.3 L (8.4-10.2) mg/dL Albumin 3.0 L (3.5-5.0) g/dL Pituitary panel 02/21/24 Range/Units 20:25 Sodium 136 L (137-145) mmol/L Potassium 3.2 L (3.5-5.1) mmol/L Chloride 102 (98-107) mmol/L Carbon Dioxide 29 (22-30) mmol/L BUN 13 (7-17) mg/dL Creatinine 0.60 (0.52-1.04) mg/dL Glucose 84 (74-99) mg/dL Calcium 8.3 L (8.4-10.2) mg/dL Adrenal panel 02/21/24 Range/Units 20:25 Sodium 136 L (137-145) mmol/L Potassium 3.2 L (3.5-5.1) mmol/L Chloride 102 (98-107) mmol/L Carbon Dioxide 29 (22-30) mmol/L BUN 13 (7-17) mg/dL Creatinine 0.60 (0.52-1.04) mg/dL Glucose 84 (74-99) mg/dL Calcium 8.3 L (8.4-10.2) mg/dL Total Bilirubin 0.5 (0.2-1.3) mg/dL AST 28 (14-36) U/L ALT 21 (4-34) U/L Alkaline Phosphatase 98 (38-126) U/L Total Protein 4.9 L (6.3-8.2) g/dL Albumin 3.0 L (3.5-5.0) g/dL - Imaging Chest x-ray: report reviewed, image reviewed EKG: image reviewed Additional studies: Hip films reviewed Assessment and Plan Assessment: Fall from standing, status post right femoral neck fracture Pain secondary to above Anemia, expected as part of recovery after open heart surgery History of severe mitral regurgitation, moderate to severe tricuspid regurgitation per ENRIQUE, status post mitral valve replacement, tricuspid valve repair 02/05/24 Severe pulmonary hypertension Chronic heart failure with preserved left ventricular systolic function, EF 55- 60% Third-degree heart block, status post Micra AV device 02/08/24 Mild CAD Hyperlipidemia, treated COPD on home oxygen at night and PRN Recent pneumonia GERD, suspected stress gastritis Previous tobacco dependence, quit > 1 month ago, [id number] history Occasional marijuana use Family history of coronary artery disease with mother from myocardial infarction in her 70s Plan: The patient was seen and examined laying on the cart in the emergency room. She does complain of right hip pain, states chest pain from open heart surgery is minimal and has been controlled with medication regimen. Case was discussed with Dr. Cody. States she was doing very well in rehab as well as when she got home, also states she feels that she should have known better than to wear the slippers she was wearing which has caused her to lose her balance in the past. Postoperative medications ordered, aspirin/Plavix on hold due to pending surgery. Recommend restarting aspirin as soon as possible. Will monitor labs and x-rays. Sternal precautions in place. Incentive spirometry ordered and should be encouraged. Increase activity as tolerated and permitted by o rthopedics. More recommendations to follow as patient progresses. Thank you Dr. Mujica for this consult. We will continue to follow along with you and make further recommendations. I have personally seen and examined the patient, performed the documentation and the assessment and plan as written. Number of minutes spent on the visit: 30. Beatriz C[place], LAST PULLER-C The patient was seen and examined, I agree with the assessment and plan as documented by the LAST PULLER. Number of minutes spent on the visit: 35. Guillermo Cody MD
--- NOTE | 2024-02-22 11:05 | P.CRDCN ---
History of Present Illness History of present illness: HISTORY OF PRESENT ILLNESS: This is a 68-year-old female with a past medical history significant for valvular heart disease with recent mitral valve replacement and tricuspid valve repair, COPD on home oxygen, third-degree heart block with Micra device, mild CAD, and hyperlipidemia. Patient follows in the office with Dr. Ordaz. We have been asked to see the patient in consultation for right hip fracture with recent open heart surgery. Patient examined at the bedside in the emergency room. Patient was admitted to the hospital earlier this month and underwent bioprosthetic mitral valve replacement and tricuspid valve repair on 02/05/2024. The patient also developed complete heart block and underwent Micra device on 02/08/2024. The patient was discharged to [facility] in stable condition. She states that she completed rehab and has been at home recovering for the past week. She states that she lives alone and has been getting around her house well. She states that she was wearing a pair of slippers which caused her to lose her balance and fall. She denies losing consciousness. She denied having any chest pain or shortness of breath. The patient was found to have a right hip fracture and is scheduled to undergo surgical intervention this afternoon with orthopedics. DIAGNOSTICS: - EKG reveals paced rhythm. - Chest xray small bilateral pleural effusions with mild right lower lobe infiltrate. Correlate for atelectasis. - Laboratory data: WBC 6.2. Hemoglobin 8.1. Platelet count 306. Sodium 136. Potassium 3.2. BUN 13. Creatinine 0.60. - Current home cardiac medications include aspirin 325 mg daily, Lipitor 40 mg at night, losartan 12.5 mg daily, Lasix 40 mg daily, Plavix 75 mg daily - Limited echo completed on 02/10/2024 revealed minimal pericardial effusion - ENRIQUE performed in December 2023 EF 55 to 60%, severe MR, moderate to severe TR, moderate AI, severe pulmonary hypertension - Cardiac catheterization history: December 2023 with no significant CAD REVIEW OF SYSTEMS: At the time of my exam: CONSTITUTIONAL: Denies fever or chills. HEENT: Denies blurred vision, vision changes, or eye pain. Denies hemoptysis CARDIOVASCULAR: Denies chest pain. Denies orthopnea. Denies PND. Denies palpitations RESPIRATORY: Denies shortness of breath. GASTROINTESTINAL: Denies abdominal pain. Denies nausea or vomiting. HEMATOLOGIC: Denies bleeding disorders. GENITOURINARY: Denies any blood in urine. SKIN: Denies pruitis. Denies rash. PHYSICAL EXAM: VITAL SIGNS: Reviewed. GENERAL: Well-developed in no acute distress. HEENT: Head is normocephalic. Pupils are equal, round. Sclerae anicteric. Mucous membranes of the mouth are moist. Neck supple. No JVD or thyromegaly LUNGS: Respirations even and unlabored. Lungs with expiratory wheezing noted HEART: Regular rate and rhythm. S1 and S2 heard. ABDOMEN: Soft. Nondistended. Nontender. EXTREMITIES: Normal range of motion. No clubbing or cyanosis. Peripheral pulses intact. No lower extremity edema NEUROLOGIC: Awake and alert. Oriented x 3. ASSESSMENT: Right hip fracture status post mechanical fall Valvular heart disease, status post bioprosthetic mitral valve replacement and tricuspid valve repair, 02/05/2024 Complete heart block status post Micra device, 02/08/2024 Anemia COPD on home oxygen Severe pulmonary hypertension Hyperlipidemia Former nicotine dependence PLAN: Give 1 dose of IV Lasix 20 mg Hold aspirin and Plavix due to pending orthopedic surgery. Resume postoperatively when okay with orthopedic surgery Resume additional home cardiac medications There are no absolute contraindications for patient to proceed with orthopedic surgery today from a cardiac standpoint Further recommendations pending patient course Nurse practitioner note has been reviewed by physician. Signing provider agrees with the documented findings, assessment, and plan of care documented by [employer] as a scribe. Past Medical History Past Medical History: Coronary Artery Disease (CAD), Heart Failure, COPD, GERD/Reflux, Hyperlipidemia, Pneumonia, Syncope Additional Past Medical History / Comment(s): Severe mitral regurgitation, moderate to severe tricuspid regurgitation, severe pulmonary hypertension, third-degree heart block History of Any Multi-Drug Resistant Organisms: None Reported Past Surgical History: Back Surgery, Section, Heart Catheterization, Pacemaker, Tubal Ligation Additional Past Surgical History / Comment(s): L4-L5 decompression. 02/05/2024 mi tral valve replacement (29mm Hannah Mitris resilia), tricuspid valve repair (30 mm Hannah MC3 ring), ligation left atrial appendage (35 mm Atriclip). 02/09/24 implantation of micra AV device Past Anesthesia/Blood Transfusion Reactions: No Reported Reaction Type of Cardiac Device: Permanent Pacemaker Device Placement Date:: 02/09/24 Past Psychological History: Depression Smoking Status: Former smoker Past Alcohol Use History: None Reported Additional Past Alcohol Use History / Comment(s): < 1 pack per day smoker. Patient smoked for 45 years. No illicit drug use, no alcohol use. Past Drug Use History: Marijuana Additional Drug Use History / Comment(s): Occasional marijuana Gummies - Past Family History Mother Family Medical History: Myocardial Infarction ([place]) Additional Family Medical History / Comment(s): Mother at age 78 from myocardial infarction with history of pneumonia, 3 vessel CABG. Father Additional Family Medical History / Comment(s): Patient recently found out that the man who raised her was not her biological father, unknown history of biological father Brother(s) Additional Family Medical History / Comment(s): Patient has 2 brothers and one has known spinal stenosis. Patient has 2 sisters and one has Crohn's and one has Edvin-Vieira. Patient has one daughter with Crohn's disease. Medications and Allergies Home Medications Medication Instructions Recorded Confirmed Type Citalopram Hydrobromide 40 mg PO DAILY 12/26/22 02/22/24 History [Citalopram HBr] Cyanocobalamin (Vitamin B-12) 1,000 mcg PO DAILY 12/26/22 02/22/24 History [Vitamin B-12] Fluticasone/Umeclidin/Vilanter 1 puff INHALATION RT-DAILY 12/26/22 02/22/24 History [Trelegy Ellipta 200-62.5-25] Omeprazole [PriLOSEC] 40 mg PO DAILY 12/26/22 02/22/24 History buPROPion SR [Wellbutrin SR] 150 mg PO BID 12/26/22 02/22/24 History Citalopram Hydrobromide [CeleXA] 20 mg PO DAILY 02/05/23 02/22/24 History Ipratropium-Albuterol Nebulize 3 ml INHALATION RT-QID PRN 02/05/23 02/22/24 History [Duoneb 0.5 mg-3 mg/3 ml Soln] Cholecalciferol (Vitamin D3) 50 mcg PO DAILY 02/01/24 02/22/24 History [Vitamin D3 (50 Mcg = 2000 Iu)] Folic Acid 1 mg PO DAILY 02/01/24 02/22/24 History Ascorbic Acid [Vitamin C] 500 mg PO BID-W/MEALS tab 02/15/24 02/22/24 Rx Aspirin 325 mg PO DAILY tab 02/15/24 02/22/24 Rx Calcium Carbonate [Tums] 1,000 mg PO QID PRN tab 02/15/24 02/22/24 Rx Clopidogrel [Plavix] 75 mg PO DAILY tab 02/15/24 02/22/24 Rx Ferrous Sulfate [Iron (65 MG 325 mg PO BID-W/MEALS tab 02/15/24 02/22/24 Rx Elemental)] Furosemide [Lasix] 40 mg PO DAILY tab 02/15/24 02/22/24 Rx Gabapentin [Neurontin] 100 mg PO TID cap 02/15/24 02/22/24 Rx Losartan [Cozaar] 12.5 mg PO DAILY tab 02/15/24 02/22/24 Rx Pantoprazole [Protonix] 40 mg PO AC-BID tab 02/15/24 02/22/24 Rx Atorvastatin [Lipitor] 40 mg PO HS 02/22/24 02/22/24 History Budesonide [Pulmicort] 1 mg INHALATION RT-BID@0800,1700 02/22/24 02/22/24 History Dextroamphetamine/Amphetamine 10 mg PO BID@0700,1700 02/22/24 02/22/24 History [Adderall] Formoterol Fumarate [Perforomist] 20 mcg INHALATION RT-BID@0800,1700 02/22/24 02/22/24 History HYDROcodone/APAP 10-325MG [[place] 1 tab PO Q8H 02/22/24 02/22/24 History 10-325] Lidocaine Viscous 2% [Xylocaine 10 ml MUCOUS MEM W/SUPPER 02/22/24 02/22/24 History Viscous] Mag Hydrox/Al Hydrox/Simeth 30 ml PO W/SUPPER 02/22/24 02/22/24 History [Maalox] Allergies Allergy/AdvReac Type Severity Reaction Status Date / Time amoxicillin [From Augmentin] AdvReac Nausea & Verified 02/22/24 07:58 Vomiting clavulanic acid AdvReac Nausea & Verified 02/22/24 07:58 [From Augmentin] Vomiting Physical Exam Vitals: Vital Signs Temp Pulse Resp BP Pulse Ox 02/22/24 08:35 97 02/22/24 08:05 98.3 F 92 18 112/67 96 02/22/24 07:09 94 27 H 128/75 94 L 02/22/24 06:34 98.1 F 95 27 H 124/66 93 L 02/22/24 05:33 98.4 F 96 18 125/69 94 L 02/22/24 03:40 94 20 119/70 96 02/22/24 03:34 92 18 115/68 95 02/22/24 02:23 92 18 146/76 93 L 02/21/24 20:18 98.2 F 95 16 108/67 96 02/21/24 16:54 99.3 F 92 18 104/64 92 L Intake and Output 02/21/24 02/22/24 02/22/24 22:59 06:59 14:59 Output Total 1300 Balance -1300 Output: Urine 650 Straight 650 Post Void Residual 650 Other: Weight 61.235 kg 61.235 kg Results 02/21/24 20:25 02/21/24 20:25 Cardiac Enzymes 02/21/24 Range/Units 20:25 AST 28 (14-36) U/L Coagulation 02/21/24 Range/Units 20:25 PT 11.0 (10.0-12.5) sec APTT 27.4 (22.0-30.0) sec CBC 02/21/24 Range/Units 20:25 WBC 6.2 (3.8-10.6) k/uL RBC 2.56 L (3.80-5.40) m/uL Hgb 8.1 L (11.4-16.0) gm/dL Hct 24.7 L (34.0-46.0) % Plt Count 306 (150-450) k/uL Comprehensive Metabolic Panel 02/21/24 Range/Units 20:25 Sodium 136 L (137-145) mmol/L Potassium 3.2 L (3.5-5.1) mmol/L Chloride 102 (98-107) mmol/L Carbon Dioxide 29 (22-30) mmol/L BUN 13 (7-17) mg/dL Creatinine 0.60 (0.52-1.04) mg/dL Glucose 84 (74-99) mg/dL Calcium 8.3 L (8.4-10.2) mg/dL AST 28 (14-36) U/L ALT 21 (4-34) U/L Alkaline Phosphatase 98 (38-126) U/L Total Protein 4.9 L (6.3-8.2) g/dL Albumin 3.0 L (3.5-5.0) g/dL Current Medications Generic Name Dose Route Start Last Admin Trade Name Freq PRN Reason Stop Dose Admin Al Hydroxide/Mg Hydroxide 30 ml 02/22/24 17:30 Mag Hydrox/Al Hydrox/Simeth 30 Ml Cup PO W/SUPPER KAMINI Albuterol/Ipratropium 3 ml 02/22/24 08:56 Ipratropium-Albuterol 3 Ml Neb INHALATION RT-QID PRN Shortness Of Breath Ascorbic Acid 500 mg 02/22/24 17:30 Ascorbic Acid 500 Mg Tab PO BID-W/MEALS KAMINI Atorvastatin Calcium 40 mg 02/22/24 21:00 Atorvastatin 40 Mg Tab PO HS [facility] Budesonide 1 mg 02/22/24 17:00 Budesonide 1 Mg/2 Ml Nebu INHALATION RT-BID@0800,1700 [facility] Bupropion HCl 150 mg 02/22/24 09:00 Bupropion Sr 150 Mg Tablet.Er PO BID [facility] Calcium Carbonate/Glycine 1,000 mg 02/22/24 08:56 Calcium Carbonate 500 Mg Chewable PO QID PRN Heartburn Cholecalciferol 50 mcg 02/22/24 09:00 Cholecalciferol 25 Mcg (1000 Iu) Tablet PO DAILY [facility] Citalopram Hydrobromide 20 mg 02/22/24 09:00 Citalopram Hydrobromide 20 Mg Tab PO DAILY [facility] Cyanocobalamin 1,000 mcg 02/22/24 09:00 Cyanocobalamin 500 Mcg Tab PO DAILY [facility] Ferrous Sulfate 325 mg 02/22/24 17:30 Ferrous Sulfate 325 Mg Tab PO BID-W/MEALS [facility] Folic Acid 1 mg 02/22/24 09:00 Folic Acid 1 Mg Tab PO DAILY [facility] Formoterol Fumarate 20 mcg 02/22/24 17:00 Formoterol Fumarate 20 Mcg/2 Ml Nebu INHALATION RT-BID@0800,1700 [facility] Hydromorphone HCl 0.5 mg 02/21/24 20:01 02/22/24 06:40 Hydromorphone 0.5 Mg/0.5 Ml Syringe IVP 0.5 mg Q3HR PRN Administration Moderate Pain (Scale 4 to 6) Sodium Chloride 1,000 mls @ 75 mls/hr 02/21/24 20:15 02/21/24 20:11 Saline 0.9% IV 75 mls/hr .[id number] [facility] Administration Ipratropium Mead 0.5 mg 02/22/24 12:00 Ipratropium 0.5 Mg/2.5 Ml Nebu INHALATION RT-QID [facility] Lidocaine HCl 10 ml 02/22/24 17:30 Lidocaine Viscous 2% 15 Ml Cup MUCOUS MEM W/SUPPER [facility] Losartan Potassium 12.5 mg 02/22/24 09:15 Losartan 25 Mg Tab PO DAILY [facility] Morphine Sulfate 4 mg 02/21/24 20:01 02/22/24 08:26 Morphine Sulfate 4 Mg/Ml Syringe IV 4 mg Q4HR PRN Administration Severe Pain (Scale 7 to 10) Naloxone HCl 0.2 mg 02/21/24 20:01 Naloxone 0.4 Mg/Ml 1 Ml Vial IV Q2M PRN Opioid Reversal Non-Formulary Medication 10 mg 02/22/24 17:00 Dextroamphetamine/Amphetamine [Adderall] PO BID@0700,1700 [facility] Ondansetron HCl 4 mg 02/21/24 20:01 Ondansetron 4 Mg/2 Ml Vial IVP Q8HR PRN Nausea And Vomiting Pantoprazole Sodium 40 mg 02/22/24 17:30 Pantoprazole 40 Mg Tablet PO AC-BID [facility] Intake and Output 02/21/24 02/22/24 02/22/24 22:59 06:59 14:59 Output Total 1300 Balance -1300 Output: Urine 650 Straight 650 Post Void Residual 650 Other: Weight 61.235 kg 61.235 kg 02/21/24 20:25 02/21/24 20:25
[2024-02-22 11:33] LABS: African American GFR (CKD) >90 (>60 ml/min/1.73 sqM); Anion Gap 3 mmol/L; Blood Urea Nitrogen 13 mg/dL (7-17); Calcium 8.5 mg/dL (8.4-10.2); Carbon Dioxide 25 mmol/L (22-30); Chloride 105 mmol/L (98-107); Glucose 71 mg/dL (74-99); Magnesium 1.9 mg/dL (1.6-2.3); Non-African American GFR(CKD) >90 (>60 ml/min/1.73 sqM); Potassium 3.5 mmol/L (3.5-5.1); Sodium 133 mmol/L (137-145)
[2024-02-22] MEDS: IPRATROPIUM 0.5 MG/2.5 ML NEBU INHALATION SCH (11:41)
[2024-02-22 11:42] LABS: NT-Pro-B-Type Natriuretic Pept 4290 pg/mL
[2024-02-22] MEDS: CHOLECALCIFEROL 25 MCG (1000 IU) TABLET PO SCH (12:20)
[2024-02-22] MEDS: CYANOCOBALAMIN 500 MCG TAB PO SCH (12:20)
[2024-02-22] MEDS: buPROPion SR 150 MG TABLET.ER PO SCH (12:21)
[2024-02-22] MEDS: ASCORBIC ACID 500 MG TAB PO SCH (12:21)
[2024-02-22] MEDS: FOLIC ACID 1 MG TAB PO SCH (12:21)
[2024-02-22] MEDS: CITALOPRAM HYDROBROMIDE 20 MG TAB PO SCH (12:21)
[2024-02-22] MEDS: LOSARTAN 25 MG TAB PO SCH (12:21)
[2024-02-22] MEDS: FUROSEMIDE 10 MG/ML 2 ML VIAL IV STA (12:24)
[2024-02-22] MEDS: MAGNESIUM SULFATE-D5W PMX 1 GM in DEXTROSE/WATER 1 100ML.BAG IVPB SCH (12:44)
[2024-02-22] MEDS: POTASSIUM CHLORIDE ER 20 MEQ TAB.ER PO STA (13:56)
[2024-02-22] MEDS: IPRATROPIUM-ALBUTEROL 3 ML NEB INHALATION PRN (15:40)
[2024-02-22] MEDS: ALPRAZolam 0.25 MG TAB PO PRN (16:12)
[2024-02-22] MEDS ORDERED: fentaNYL (PF) 50 MCG/ML 2 ML AMP ONE (17:54)
[2024-02-22] MEDS ORDERED: LIDOCAINE 1% INJ 10MG/ML (20 ML MDV) ONE (17:54)
[2024-02-22] MEDS ORDERED: TRANEXAMIC 1,000 MG/100ML-NACL PREMIX BAG ONE (17:54)
[2024-02-22] MEDS ORDERED: ceFAZolin 1 GM/50 ML BAG (PMX) ONE (17:54)
[2024-02-22] MEDS ORDERED: PROPOFOL 10 MG/ML 20 ML VIAL IV ONE (17:54)
[2024-02-22] MEDS ORDERED: PHENYLEPHRINE 10 MG/ML VIAL ONE (17:54)
[2024-02-22] MEDS ORDERED: ONDANSETRON 4 MG/2 ML VIAL ONE (17:54)
[2024-02-22] MEDS: LACTATED RINGERS 1,000 ML IV ONE (17:59)
[2024-02-22] MEDS: SODIUM CHLORIDE 0.9% 50 ML with ceFAZolin 2,000 MG IV ONE (17:59)
[2024-02-22] MEDS ORDERED: HYDROmorphone 0.5 MG/0.5 ML SYRINGE IVP PRN ×3 (19:04)
[2024-02-22] MEDS ORDERED: MAGNESIUM HYDROXIDE 2,400 MG/30 ML CUP PO PRN (19:04)
[2024-02-22] MEDS ORDERED: NALOXONE 0.4 MG/ML 1 ML VIAL IV PRN (19:04)
[2024-02-22] MEDS: BUPIVACAINE (PF) 0.5% 30 ML VIAL SQ ONE (19:10)
--- NOTE | 2024-02-22 19:41 | XR ---
Right hip limited. HISTORY: Right hip fracture, open reduction internal fixation COMPARISON: 02/21/2024. TECHNIQUE: 2 minutes and 31 seconds of fluoroscopy and 2 intraoperative spot films were obtained FINDINGS: Intraoperative procedure demonstrate placement of 3 transfemoral neck screws for fixation of a right femoral neck fracture. There appears to be Near anatomic alignment. IMPRESSION: Open reduction and internal fixation of right femoral neck fracture with 3 transfemoral neck screws. [facility], Workstation: BUTCH 02/22/2024 7:39 PM
--- NOTE | 2024-02-22 19:44 | P.OP ---
Date of Procedure: 02/22/24 Preoperative Diagnosis: 1. Nondisplaced right femoral neck fracture 2. History of open heart surgery 2 weeks ago 3. Open of 8.1 on admission Postoperative Diagnosis: Same Procedure(s) Performed: In situ screw fixation right femoral neck fracture Anesthesia: CAROLYN Surgeon: Ismael Mendoza Sock Examiner #1: Ramone Alcaraz Estimated Blood Loss (ml): 100 IV fluids (ml): 500 Pathology: none sent Condition: stable Disposition: PACU Indications for Procedure: Patient is a very pleasant 68-year-old female with multiple medical problems including having recently undergone open heart surgery 2 weeks ago. She was admitted under my care this morning with a nondisplaced subcapital femoral neck fracture. Her x-rays and computed tomography scan showed minimal displacement including a posterior tilt angle of less than 20. We discussed both arthroplasty and screw fixation. Given the patient's frail medical state and nondisplaced fracture on computed tomography scan I think that proceeding with in situ fixation is in the patient's best interest. The patient understands the potential risks and complications of this including but certainly not limited to risks from anesthesia, superficial or deep infection, nonunion, malunion, hardware failure and varus collapse, need for further surgery including conversion to arthroplasty, DVT, PE, failure to thrive, acute coronary event, and possibly loss of life. Description of Procedure: Patient was identified in preoperative holding and the correct right leg was marked with my initials. I reviewed the consent form with the patient and all of her questions were answered. The patient was then brought back to the operating room by anesthesia. She was given a general anesthetic and preoperative antibiotics. Boots were applied to both feet. The patient was then carefully transferred over to the hospital table. Both boots were attached spars. A nonsterile 10:15 drape was applied. The table was elevated. The left leg was dropped to facilitate imaging. A timeout was performed identifying the correct patient, operative extremity, and procedure. Fluoroscopy was brought in to verify that an AP and lateral image could be obtained. The fracture appeared to be valgus impacted and minimally displaced on the lateral view. C-arm was brought out and the right leg was prepped and draped in the standard sterile fashion. Prior to starting surgery timeout was performed identifying the correct patient, operative extremity, and procedure. I began by making a 3 cm incision over the lateral aspect of the proximal femur. An incision was made with a scalpel down through the skin, subcutaneous tissue and IT and down to the lateral femur. C-arm was brought in. A guidepin was placed at the level of the lesser trochanter and the inferior femoral neck and advanced into the femoral head. The position of the pin was verified with biplanar fluoroscopy. 2 superior pins were then placed above the inferior pen. All 3 pins were then measured. Partially threaded 6.5 mm screws were then placed over the guidepins. The guidepins were backed off and final fluoroscopic images showed that the pins were crossed the fracture site and contained within the femoral head on both view. As an thoroughly irrigated and closed in layers. 30 mL's of half percent Marcaine was injected around the incision. A sterile dressing was applied. The patient was then carefully transferred off of the OR table onto a gurney and brought to recovery having tolerated the procedure well. [facility]al [facility] assistant due to the complexity of surgery for patient positioning, draping, retraction, placement of implants, closure of wound, and application of dressing. PLAN: The patient is going to be toe-touch weightbearing on the right lower extremity. 2 doses of postoperative antibiotics. It is okay to resume aspirin and Plavix tomorrow. Due to the patient's frail medical state I will transfer care to internal medicine as primary service tomorrow morning. The patient's prognosis is guarded.
[2024-02-22] MEDS: HYDROmorphone 0.5 MG/0.5 ML SYRINGE IVP PRN (20:06)
[2024-02-22 20:17] LABS: Glucose,Whole Blood 80 mg/dL (70-110)
[2024-02-22] MEDS: IV FLUID CONTINUATION 1,000 ML IV ONE (20:36)
[2024-02-22 21:15] LABS: Glucose,Whole Blood 76 mg/dL (70-110)
[2024-02-22] MEDS: ONDANSETRON 4 MG/2 ML VIAL IVP PRN (21:22)
[2024-02-22] MEDS: FORMOTEROL FUMARATE 20 MCG/2 ML NEBU INHALATION SCH (22:01)
[2024-02-22] MEDS: BUDESONIDE 1 MG/2 ML NEBU INHALATION SCH (22:01)
[2024-02-22] MEDS: NON FORMULARY DRUG (Dextroamphetamine/Amphetamine [Adderall] 10 MG Tablet) PO SCH (22:29)
[2024-02-22] MEDS: FERROUS SULFATE 325 MG TAB PO SCH (22:30)
[2024-02-22] MEDS: MAG HYDROX/AL HYDROX/SIMETH 30 ML CUP PO SCH (22:32)
[2024-02-22] MEDS: LIDOCAINE VISCOUS 2% 15 ML CUP MUCOUS MEM SCH (22:32)
[2024-02-22] MEDS: PANTOPRAZOLE 40 MG TABLET PO SCH (22:32)
[2024-02-22 22:33] LABS: Anisocytosis Slight; Basophils % (A) 0 %; Eosinophils # (A) 0.1 k/uL (0-0.7); Eosinophils % (A) 1 %; HGB 7.4 gm/dL (11.4-16.0); Hypochromasia Marked; Lymphocytes # (A) 0.7 k/uL (1.0-4.8); Lymphocytes % (A) 10 %; MCH 30.4 pg (25.0-35.0); MCHC 30.8 g/dL (31.0-37.0); MCV 98.8 fL (80.0-100.0); Macrocytosis Slight; Mean Platelet Volume 7.5; Monocytes # (A) 0.3 k/uL (0-1.0); Monocytes % (A) 3 %; Neutrophils # (A) 6.4 k/uL (1.3-7.7); Neutrophils % (A) 85 %; Platelet Count 324 k/uL (150-450); RBC 2.43 m/uL (3.80-5.40); RDW 17.4 % (11.5-15.5); WBC 7.5 k/uL (3.8-10.6)
[2024-02-22] MEDS: SENNOSIDES-DOCUSATE SODIUM 1 EACH TAB PO SCH (23:39)
[2024-02-22] MEDS: ATORVASTATIN 40 MG TAB PO SCH (23:39)
[2024-02-22] MEDS: HYDROcodone/APAP 5-325MG 1 EACH TAB PO PRN (23:42)
[2024-02-23 06:08] LABS: Glucose,Whole Blood 84 mg/dL (70-110)
--- NOTE | 2024-02-23 07:56 | P.PN ---
Subjective Progress Note Date: 02/23/24 Overnight the patient was restless and delirious. Per nursing and the daughter she has had nausea. Objective - Vital Signs Vital signs: Vital Signs Temp 97.8 F 02/23/24 02:00 Pulse 96 02/23/24 07:44 Resp 20 02/23/24 03:49 BP 104/63 02/23/24 03:49 Pulse Ox 94 L 02/23/24 07:44 FiO2 Intake & Output 02/22/24 02/23/24 02/23/24 18:59 06:59 18:59 Intake Total 450 650 Output Total 500 Balance 450 150 Weight 68 kg Intake: IV 450 650 Output: Urine 400 Estimated Blood Loss 100 Other: Voiding Method Indwelling Catheter - Exam The patient is sleeping in bed. She does not open her eyes or respond to verbal commands. She is moving her arms and her legs. The dressing over the lateral aspect of her right hip is intact with no drainage or strike through. There is diffuse swelling throughout both legs. - Labs CBC & Chem 7: 02/22/24 22:14 02/22/24 10:33 Labs: Abnormal Lab Results - Last 24 Hours (Table) 02/22/24 02/22/24 Range/Units 10:33 22:14 RBC 2.43 L (3.80-5.40) m/uL Hgb 7.4 L (11.4-16.0) gm/dL Hct 24.0 L (34.0-46.0) % MCHC 30.8 L (31.0-37.0) g/dL RDW 17.4 H (11.5-15.5) % Lymphocytes # 0.7 L (1.0-4.8) k/uL Sodium 133 L (137-145) mmol/L Glucose 71 L (74-99) mg/dL Assessment and Plan Assessment: Postoperative day #1 status post in situ screw fixation right femoral neck fracture Open heart surgery 2 weeks ago Hemoglobin of 8.1 on admission to the hospital Multiple medical problems Plan: 1. Toe-touch weightbearing right lower extremity, mobilize out of bed into a chair as able 2. 2 doses postoperative antibiotics 3. Okay to resume Plavix and aspirin today, no further DVT prophylaxis indicated unless requested by internal medicine and/or cardiology 4. Leave surgical dressing in place 5. Due to the patient's complex medical history including having had recent open heart surgery 2 weeks ago and multiple medical problems we'll transfer care to internal medicine his primary service today. The patient should follow-up in the office in 2 weeks. She is okay to discharge from an orthopedic standpoint once discharge arrangements are made. We will follow peripherally.
[2024-02-23 08:21] LABS: Anisocytosis Slight; HCT 26.1 % (34.0-46.0); HGB 8.2 gm/dL (11.4-16.0); Hypochromasia Marked; MCH 31.2 pg (25.0-35.0); MCHC 31.5 g/dL (31.0-37.0); MCV 99.3 fL (80.0-100.0); Macrocytosis Slight; Mean Platelet Volume 7.8; Platelet Count 367 k/uL (150-450); RBC 2.63 m/uL (3.80-5.40); RDW 17.9 % (11.5-15.5); WBC 8.4 k/uL (3.8-10.6)
[2024-02-23 08:41] LABS: African American GFR (CKD) >90 (>60 ml/min/1.73 sqM); Anion Gap 10 mmol/L; Blood Urea Nitrogen 12 mg/dL (7-17); Calcium 8.7 mg/dL (8.4-10.2); Carbon Dioxide 25 mmol/L (22-30); Chloride 101 mmol/L (98-107); Glucose 84 mg/dL (74-99); Magnesium 2.1 mg/dL (1.6-2.3); Non-African American GFR(CKD) >90 (>60 ml/min/1.73 sqM); Potassium 4.4 mmol/L (3.5-5.1); Sodium 136 mmol/L (137-145)
--- NOTE | 2024-02-23 08:49 | XR ---
EXAMINATION TYPE: XR chest 1V portable DATE OF EXAM: 02/23/2024 COMPARISON: 02/21/2024 INDICATION: Post cardiac surgery TECHNIQUE: Single frontal view of the chest is obtained. FINDINGS: The heart size is borderline prominent. The pulmonary vasculature is normal. Bibasilar infiltrates are present. Correlate for subsegmental atelectasis or pneumonia. IMPRESSION: 1. Mild bibasilar traits greater on the right. Correlate for atelectasis or developing pneumonia [facility], , 02/23/2024 8:47 AM
[2024-02-23] MEDS: ASPIRIN 81 MG PO SCH (08:58)
[2024-02-23] MEDS: hydrOXYzine pamoate 25 MG CAP PO PRN (09:57)
[2024-02-23] MEDS: POTASSIUM BICARBONATE/CIT AC 20 MEQ TABLET.EFF PO ONE (10:29)
--- NOTE | 2024-02-23 11:16 | P.PN ---
Subjective Progress Note Date: 02/23/24 Principal diagnosis: Fall from standing with nondiscplaced right femoral neck fracture, anemia. History of severe mitral regurgitation, moderate to severe tricuspid regurgitation status post mitral valve replacement and tricuspid valve repair 02/05/24, severe pulmonary hypertension, chronic heart failure with preserved left ventricular systolic function, third-degree heart block status post Micra AV device 02/08/24, mild CAD, hyperlipidemia, COPD on home oxygen at night and PRN, recent pneumonia, GERD/suspected stress gastritis, previous tobacco dependence with recent cessation, occasional marijuana use, and family history of coronary artery disease with mother from myocardial infarction in her 70s POD#1 in situ screw fixation right femoral neck fracture by Dr. Mendoza The patient was seen and examined sitting up in recliner on the cardiac stepdown unit in no acute distress although she does complain of postoperative pain which is somewhat controlled on current medication regimen. Currently in sinus rhythm, hemodynamically stable. Daughter was at bedside as well and was visibly upset stating patient was discharged from [facility] too early and that the patient is not wanting to get up and move or do anything at home. Checked with Garo, on day of discharge which patient initiated she was up walking around her room and packed her own bag as she wanted to go home. Apparently care is being transferred to Dr. Mujica per Dr. Mendoza's note, discharge plan up to Dr. Mujica, patient stable for discharge from Dr. Mendoza's standpoint. Objective - Vital Signs Vital signs: Vital Signs Temp 97.4 F L 02/23/24 08:40 Pulse 95 02/23/24 08:40 Resp 18 02/23/24 08:41 BP 127/50 02/23/24 08:40 Pulse Ox 96 02/23/24 08:40 FiO2 Intake & Output 02/22/24 02/23/24 02/23/24 18:59 06:59 18:59 Intake Total 450 650 Output Total 500 Balance 450 150 Weight 68 kg Intake: IV 450 650 Output: Urine 400 Estimated Blood Loss 100 Other: Voiding Method Indwelling Catheter Indwelling Catheter - Exam CONSTITUTIONAL: Appears comfortable, cooperative, no acute distress RESPIRATORY: Lungs sounds diminished in the bases bilaterally, right greater than left. Respirations even, nonlabored. Currently on 3 L nasal cannula with oxygen saturation 96% CARDIOVASCULAR: S1, S2 present. Regular rate and rhythm, sinus rhythm on telemetry. Sternum stable. Palpable peripheral pulses bilaterally. Heart hugger in place GASTROINTESTINAL: Abdomen soft, nontender, nondistended. Active bowel sounds present 4 quadrants. Tolerating minimal diet GENITOURINARY: [place] present draining clear, yellow urine INTEGUMENTARY: Skin is warm and dry. Anterior chest incision well approxi mated. Right hip dressing intact NEUROLOGIC: Cranial nerves II through XII intact MUSKULOSKELETAL: Able to move all extremities, strength equal bilaterally PSYCHIATRIC: Alert and oriented to person place and time - Allied health notes Allied health notes reviewed: nursing - Labs CBC & Chem 7: 02/23/24 07:29 02/23/24 07:29 Labs: Abnormal Lab Results - Last 24 Hours (Table) 02/22/24 02/22/24 02/23/24 Range/Units 10:33 22:14 07:29 RBC 2.43 L 2.63 L (3.80-5.40) m/uL Hgb 7.4 L 8.2 L (11.4-16.0) gm/dL Hct 24.0 L 26.1 L (34.0-46.0) % MCHC 30.8 L (31.0-37.0) g/dL RDW 17.4 H 17.9 H (11.5-15.5) % Lymphocytes # 0.7 L (1.0-4.8) k/uL Sodium 133 L (137-145) mmol/L Glucose 71 L (74-99) mg/dL 02/23/24 Range/Units 07:29 RBC (3.80-5.40) m/uL Hgb (11.4-16.0) gm/dL Hct (34.0-46.0) % MCHC (31.0-37.0) g/dL RDW (11.5-15.5) % Lymphocytes # (1.0-4.8) k/uL Sodium 136 L (137-145) mmol/L Glucose (74-99) mg/dL - Imaging and Cardiology Chest x-ray: report reviewed, image reviewed Assessment and Plan Assessment: Fall from standing, status post right femoral neck fracture, status post in situ screw fixation right femoral neck fracture by Dr. Mendoza Pain secondary to above Anemia, expected as part of recovery after open heart surgery History of severe mitral regurgitation, moderate to severe tricuspid regurgitation per ENRIQUE, status post mitral valve replacement, tricuspid valve repair 02/05/24 Severe pulmonary hypertension Chronic heart failure with preserved left ventricular systolic function, EF 55- 60% Third-degree heart block, status post Micra AV device 02/08/24 Mild CAD Hyperlipidemia, treated COPD on home oxygen at night and PRN Recent pneumonia GERD, suspected stress gastritis Previous tobacco dependence, quit > 1 month ago, [id number] history Occasional marijuana use Family history of coronary artery disease with mother from myocardial infarction in her 70s Plan: Continue current medication therapy, aspirin added Wean O2 as tolerated Increase activity as tolerated, PT/OT consulted, toe-touch on the right leg only per orthopedics Sternal precautions Incentive spirometry ordered again as the one ordered yesterday did not make it to her room from the emergency room, encourage incentive spirometry use 10 times every hour while awake GI/DVT prophylaxis Discharge planning per Dr. Mujica, from cardiothoracic surgery standpoint patient may be discharged whenever okay with Dr. Mujica and cardiology Will continue to monitor while hospitalized and make further recommendations as appropriate
[2024-02-23 11:53] LABS: Glucose,Whole Blood 152 mg/dL (70-110)
[2024-02-23] MEDS: HYDROcodone/APAP 10-325MG 1 EACH TAB PO PRN (12:30)
--- NOTE | 2024-02-23 14:43 | P.PN ---
Subjective Progress Note Date: 02/23/24 HISTORY OF PRESENT ILLNESS: This is a 68-year-old female with a past medical history significant for va lvular heart disease with recent mitral valve replacement and tricuspid valve repair, COPD on home oxygen, third-degree heart block with Micra device, mild CAD, and hyperlipidemia. Patient follows in the office with Dr. Ordaz. We have been asked to see the patient in consultation for right hip fracture with recent open heart surgery. Patient examined at the bedside in the emergency room. Patient was admitted to the hospital earlier this month and underwent bioprosthetic mitral valve replacement and tricuspid valve repair on 02/05/2024. The patient also developed complete heart block and underwent Micra device on 02/08/2024. The patient was discharged to [facility] in stable condition. She states t hat she completed rehab and has been at home recovering for the past week. She states that she lives alone and has been getting around her house well. She states that she was wearing a pair of slippers which caused her to lose her balance and fall. She denies losing consciousness. She denied having any chest pain or shortness of breath. The patient was found to have a right hip fracture and is scheduled to undergo surgical intervention this afternoon with orthopedics. DIAGNOSTICS: - EKG reveals paced rhythm. - Chest xray small bilateral pleural effusions with mild right lower lobe infilt rate. Correlate for atelectasis. - Laboratory data: WBC 6.2. Hemoglobin 8.1. Platelet count 306. Sodium 136. Potassium 3.2. BUN 13. Creatinine 0.60. - Current home cardiac medications include aspirin 325 mg daily, Lipitor 40 mg at night, losartan 12.5 mg daily, Lasix 40 mg daily, Plavix 75 mg daily - Limited echo completed on 02/10/2024 revealed minimal pericardial effusion - ENRIQUE performed in December 2023 EF 55 to 60%, severe MR, moderate to severe TR, moderate AI, severe pulmonary hypertension - Cardiac catheterization history: December 2023 with no significant CAD 02/22 Patient is seen today and follow-up. Patient has been transferred from the [facility] floor to the cardiac stepdown unit. Yesterday, patient underwent in situ screw fixation right femoral neck fracture. Patient has been cleared by orthopedic surgeon to resume Plavix and aspirin today which will be done. Chest x-ray reveals mild bibasilar infiltrates greater on the right, correlate for atelectasis or developing pneumonia. PHYSICAL EXAM: VITAL SIGNS: Reviewed. GENERAL: Well-developed in no acute distress. HEENT: Head is normocephalic. Pupils are equal, round. Sclerae anicteric. Mucous membranes of the mouth are moist. Neck supple. No JVD or thyromegaly LUNGS: Respirations even and unlabored. Lungs with expiratory wheezing noted HEART: Regular rate and rhythm. S1 and S2 heard. ABDOMEN: Soft. Nondistended. Nontender. EXTREMITIES: Normal range of motion. No clubbing or cyanosis. Peripheral pulses intact. No lower extremity edema NEUROLOGIC: Awake and alert. Oriented x 3. ASSESSMENT: Right hip fracture status post mechanical fall Valvular heart disease, status post bioprosthetic mitral valve replacement and tricuspid valve repair, 02/05/2024 Complete heart block status post Micra device, 02/08/2024 Anemia COPD on home oxygen Severe pulmonary hypertension Hyperlipidemia Former nicotine dependence PLAN: Resume aspirin and Plavix Continue additional home cardiac medications Patient is cleared from cardiology for discharge. She may follow-up in the office in 1 to 2 weeks. Nurse practitioner note has been reviewed by physician. Signing provider agrees with the documented findings, assessment, and plan of care documented by PILLING MACHINE OPERATOR as a scribe. Objective - Vital Signs Vital signs: Vital Signs Temp 97.9 F 02/23/24 11:19 Pulse 84 02/23/24 11:32 Resp 18 02/23/24 11:19 BP 128/72 02/23/24 11:19 Pulse Ox 98 02/23/24 11:19 FiO2 Intake & Output 02/22/24 02/23/24 02/23/24 18:59 06:59 18:59 Intake Total 450 650 Output Total 500 400 Balance 450 150 -400 Weight 68 kg Intake: IV 450 650 Output: Urine 400 400 Estimated Blood Loss 100 Other: Voiding Method Indwelling Catheter Indwelling Catheter - Labs CBC & Chem 7: 02/23/24 07:29 02/23/24 07:29 Labs: Abnormal Lab Results - Last 24 Hours (Table) 02/22/24 02/23/24 02/23/24 Range/Units 22:14 07:29 07:29 RBC 2.43 L 2.63 L (3.80-5.40) m/uL Hgb 7.4 L 8.2 L (11.4-16.0) gm/dL Hct 24.0 L 26.1 L (34.0-46.0) % MCHC 30.8 L (31.0-37.0) g/dL RDW 17.4 H 17.9 H (11.5-15.5) % Lymphocytes # 0.7 L (1.0-4.8) k/uL Sodium 136 L (137-145) mmol/L POC Glucose (mg/dL) (70-110) mg/dL 02/23/24 Range/Units 11:51 RBC (3.80-5.40) m/uL Hgb (11.4-16.0) gm/dL Hct (34.0-46.0) % MCHC (31.0-37.0) g/dL RDW (11.5-15.5) % Lymphocytes # (1.0-4.8) k/uL Sodium (137-145) mmol/L POC Glucose (mg/dL) 152 H (70-110) mg/dL
[2024-02-23] MEDS: CLOPIDOGREL 75 MG TAB PO SCH (15:24)
[2024-02-23 16:47] LABS: Glucose,Whole Blood 98 mg/dL (70-110)
[2024-02-23] MEDS: LORazepam 2 MG/ML INJ IV PRN (20:22)
[2024-02-23] MEDS: METOCLOPRAMIDE 5 MG/ML 2 ML VIAL IVP STA (20:22)
[2024-02-23 20:23] LABS: Glucose,Whole Blood 131 mg/dL (70-110)
[2024-02-23 20:50] LABS: Glucose,Whole Blood 144 mg/dL (70-110)
[2024-02-23] MEDS: FUROSEMIDE 10 MG/ML 4 ML VIAL IV STA ×2 (21:02→21:04)
--- NOTE | 2024-02-23 21:14 | XR ---
EXAMINATION TYPE: XR chest 1V portable DATE OF EXAM: 02/23/2024 COMPARISON: 02/23/2024 INDICATION: Respiratory distress TECHNIQUE: Single frontal view of the chest is obtained. FINDINGS: The heart size is enlarged. The pulmonary vasculature is prominent. Mild bibasilar infiltrates are present. Correlate for atelectasis or pneumonia. Atypical pulmonary ed neftaly could be considered. Minimal effusions may be present. IMPRESSION: 1. Bibasilar infiltrates and/or small pleural effusions. Follow-up is recommended. 2. Consider pulmonary edema and volume overload within the differential. [facility], , 02/23/2024 9:12 PM
[2024-02-24 01:29] LABS: Glucose,Whole Blood 150 mg/dL (70-110)
[2024-02-24 01:47] LABS: Glucose,Whole Blood 136 mg/dL (70-110)
--- NOTE | 2024-02-24 02:06 | XR ---
EXAM: XR Chest, 1 View CLINICAL HISTORY: ITS.REASON XR Reason: shortness of breath TECHNIQUE: Frontal view of the chest. COMPARISON: Chest radiograph on 02/23/2024 FINDINGS: Hardware: None. Lungs/pleura: Small bilateral pleural effusions. Probable lower lung atelectasis. Prominent lung markings may represent pulmonary vasculature congestion/edema. Heart/mediastinum: Normal. Mild enlargement of the cardiac silhouette. Median sternotomy changes. Left atrial appendage. Prosthetic heart valves. Soft tissues: Unremarkable. Bones: No acute fracture. Lumbar fusion hardware partially seen. Upper abdomen: Normal. IMPRESSION: 1. Small bilateral pleural effusions. Probable lower lung atelectasis. 2. Prominent lung markings may represent pulmonary vasculature congestion/edema.
[2024-02-24] MEDS: LORazepam 1 MG/0.5 ML VIAL IV PRN (02:43)
[2024-02-24 02:45] LABS: Anisocytosis Slight; Basophils % (A) 0 %; Eosinophils % (A) 0 %; HCT 28.1 % (34.0-46.0); HGB 8.5 gm/dL (11.4-16.0); Hypochromasia Marked; Lymphocytes # (A) 0.5 k/uL (1.0-4.8); Lymphocytes % (A) 5 %; MCHC 30.1 g/dL (31.0-37.0); MCV 99.5 fL (80.0-100.0); Macrocytosis Slight; Mean Platelet Volume 7.6; Monocytes # (A) 0.6 k/uL (0-1.0); Monocytes % (A) 6 %; Neutrophils # (A) 8.7 k/uL (1.3-7.7); Neutrophils % (A) 87 %; Platelet Count 504 k/uL (150-450); RBC 2.82 m/uL (3.80-5.40); RDW 17.3 % (11.5-15.5)
[2024-02-24 03:01] LABS: African American GFR (CKD) >90 (>60 ml/min/1.73 sqM); Anion Gap 8 mmol/L; Blood Urea Nitrogen 12 mg/dL (7-17); Calcium 8.8 mg/dL (8.4-10.2); Carbon Dioxide 27 mmol/L (22-30); Chloride 99 mmol/L (98-107); Glucose 122 mg/dL (74-99); Non-African American GFR(CKD) >90 (>60 ml/min/1.73 sqM); Potassium 4.3 mmol/L (3.5-5.1); Sodium 134 mmol/L (137-145)
[2024-02-24] MEDS: DEXMEDETOMIDINE/0.9% NACL(PMX) 400 MCG in EMPTY BAG 1 BAG IV SCH (03:15)
[2024-02-24] MEDS: HEPARIN SODIUM 1,000 UN/ML (10ML VL) IV ONE (03:15)
[2024-02-24] MEDS: HEPARIN SOD,PORK IN 0.45% NACL 25,000 UNIT in 0.45% NACL 1 250ML.BAG IV SCH (03:25)
[2024-02-24 06:14] LABS: Anisocytosis Slight; Basophils % (A) 0 %; Eosinophils % (A) 0 %; HCT 23.7 % (34.0-46.0); HGB 7.3 gm/dL (11.4-16.0); Hypochromasia Marked; Lymphocytes # (A) 0.5 k/uL (1.0-4.8); Lymphocytes % (A) 9 %; MCH 30.7 pg (25.0-35.0); MCV 99.1 fL (80.0-100.0); Macrocytosis Slight; Mean Platelet Volume 7.4; Monocytes # (A) 0.4 k/uL (0-1.0); Monocytes % (A) 7 %; Neutrophils # (A) 4.7 k/uL (1.3-7.7); Neutrophils % (A) 83 %; Platelet Count 336 k/uL (150-450); RBC 2.39 m/uL (3.80-5.40); RDW 17.2 % (11.5-15.5); WBC 5.6 k/uL (3.8-10.6)
[2024-02-24 06:39] LABS: ALT 22 U/L (4-34); AST 56 U/L (14-36); African American GFR (CKD) >90 (>60 ml/min/1.73 sqM); Alkaline Phosphatase 153 U/L (38-126); Anion Gap 6 mmol/L; Blood Urea Nitrogen 12 mg/dL (7-17); Calcium 8.5 mg/dL (8.4-10.2); Carbon Dioxide 30 mmol/L (22-30); Chloride 100 mmol/L (98-107); Glucose 100 mg/dL (74-99); Non-African American GFR(CKD) >90 (>60 ml/min/1.73 sqM); Sodium 136 mmol/L (137-145); Total Bilirubin 0.6 mg/dL (0.2-1.3); Total Protein 4.9 g/dL (6.3-8.2)
[2024-02-24 06:47] LABS: INR 1.3 (<1.2); Partial Thromboplastin Time 84.7 sec (22.0-30.0); Prothrombin Time 13.3 sec (10.0-12.5)
--- NOTE | 2024-02-24 07:33 | XR ---
EXAMINATION TYPE: XR chest 1V portable DATE OF EXAM: 02/24/2024 COMPARISON: 02/24/2024 INDICATION: Heart failure TECHNIQUE: Single frontal view of the chest is obtained. FINDINGS: The heart size is enlarged. The pulmonary vasculature is prominent. Diffuse increasing lung opacity is present. Findings can be compatible with viable overload and early congestive heart failure. Continued follow-up is recommended. Tenotomy wires are present from prior cardiac valve surgery IMPRESSION: 1. Cardiomegaly with prominent pulmonary vascular markings increasing lung opacities. Correlate for m ild congestive heart failure [facility], , 02/24/2024 7:31 AM
--- NOTE | 2024-02-24 07:35 | P.PN ---
Subjective Progress Note Date: 02/24/24 PROGRESS NOTE The patient is a 68-year-old female status post mitral valve replacement with tricuspid valve repair and closure of the left atrial appendage performed on February 04 for symptomatic progressive MR who was readmitted to the hospital after a fall and a fractured hip. Last night she became more dyspneic, agitated, requiring BiPAP and transferred to the ICU. She is sedated on BiPAP, in sinus mechanism. She has underwent surgical intervention for her hip. She had no episodes of hypotension or malignant arrhythmia postprocedure. Her daughter is present today and apparently the patient had issues with narcotic abuse in the past and she is concerned about her receiving narcotics. Preo peratively her low ventricle systolic function was normal and there was no evidence of obstructive CAD. Her D-dimer were elevated and there was a question of pulmonary embolism for which she was started on IV heparin Medications: Aspirin, Lipitor 40 mg daily, citalopram, Plavix 75 mg daily, furosemide x 1, IV heparin, losartan 12.5 mg daily PHYSICAL EXAMINATION: Blood pressure 113/70 heart rate 90, sedated on BiPAP LUNGS: Clear to auscultation anteriorly HEART: Regular rate and rhythm, S1, S2. No S3. Systolic ejection murmur ABDOMEN: Soft, nontender, no organomegaly EXTREMETIES: No edema LAB: Hemoglobin 7.3, WBC 5.6, D-dimer 4.1, potassium 4.0, BUN 12, creatinine 0.55 IMPRESSION: 1. Respiratory failure, rule out pulmonary embolism although the D-dimer elevation could be related to her recent surgical intervention 2. Status post mitral valve replacement and tricuspid valve repair 3. Status post pacemaker implantation 4. History of chronic pain and narcotic use PLAN: 1. Obtain an echocardiogram with Doppler 2. Patient would require a CT angiogram to rule out pulmonary embolism and make a decision about long-term anticoagulation 3. Intravenous diuretics for 24 hours 4. Follow renal functions 5. Depending on her progress further recommendations will be made Objective - Vital Signs Vital signs: Vital Signs Temp 97.9 F 02/23/24 15:23 Pulse 92 02/24/24 06:00 Resp 20 02/24/24 06:00 BP 105/69 02/24/24 06:00 Pulse Ox 98 02/24/24 06:00 FiO2 60 02/24/24 04:00 Intake & Output 0902/24/24 02/24/24 18:59 06:59 18:59 Intake Total 300 4.25 Output Total 400 1280 Balance -100 -1275.75 Intake: Intake, IV Titration 4.25 Amount Dexmedetomidine/0.9% NaCl 4.25 (Pmx) 400 mcg In Empty Bag 1 bag @ 0.2 MCG/KG/HR 3.4 mls/hr IV .Q24H KAMINI Rx#:[id number] Oral 300 Output: Urine 400 1280 Other: Voiding Method Indwelling Catheter Indwelling Catheter # Voids 0 # Bowel Movements 0 - Labs CBC & Chem 7: 02/24/24 05:55 02/24/24 05:55 Labs: Abnormal Lab Results - Last 24 Hours (Table) 02/23/24 02/23/24 02/23/24 Range/Units 07:29 07:29 11:51 RBC 2.63 L (3.80-5.40) m/uL Hgb 8.2 L (11.4-16.0) gm/dL Hct 26.1 L (34.0-46.0) % MCHC (31.0-37.0) g/dL RDW 17.9 H (11.5-15.5) % Plt Count (150-450) k/uL Neutrophils # (1.3-7.7) k/uL Lymphocytes # (1.0-4.8) k/uL PT (10.0-12.5) sec INR (<1.2) APTT (22.0-30.0) sec D-Dimer (<0.60) mg/L FEU Sodium 136 L (137-145) mmol/L Creatinine (0.52-1.04) mg/dL Glucose (74-99) mg/dL POC Glucose (mg/dL) 152 H (70-110) mg/dL AST (14-36) U/L Alkaline Phosphatase (38-126) U/L Total Protein (6.3-8.2) g/dL Albumin (3.5-5.0) g/dL 02/23/24 02/23/24 02/24/24 Range/Units 20:21 20:49 01:28 RBC (3.80-5.40) m/uL Hgb (11.4-16.0) gm/dL Hct (34.0-46.0) % MCHC (31.0-37.0) g/dL RDW (11.5-15.5) % Plt Count (150-450) k/uL Neutrophils # (1.3-7.7) k/uL Lymphocytes # (1.0-4.8) k/uL PT (10.0-12.5) sec INR (<1.2) APTT (22.0-30.0) sec D-Dimer (<0.60) mg/L FEU Sodium (137-145) mmol/L Creatinine (0.52-1.04) mg/dL Glucose (74-99) mg/dL POC Glucose (mg/dL) 131 H 144 H 150 H (70-110) mg/dL AST (14-36) U/L Alkaline Phosphatase (38-126) U/L Total Protein (6.3-8.2) g/dL Albumin (3.5-5.0) g/dL 02/24/24 02/24/24 02/24/24 Range/Units 01:45 02:00 02:00 RBC 2.82 L (3.80-5.40) m/uL Hgb 8.5 L (11.4-16.0) gm/dL Hct 28.1 L (34.0-46.0) % MCHC 30.1 L (31.0-37.0) g/dL RDW 17.3 H (11.5-15.5) % Plt Count 504 H (150-450) k/uL Neutrophils # 8.7 H (1.3-7.7) k/uL Lymphocytes # 0.5 L (1.0-4.8) k/uL PT (10.0-12.5) sec INR (<1.2) APTT (22.0-30.0) sec D-Dimer 4.11 H (<0.60) mg/L FEU Sodium (137-145) mmol/L Creatinine (0.52-1.04) mg/dL Glucose (74-99) mg/dL POC Glucose (mg/dL) 136 H (70-110) mg/dL AST (14-36) U/L Alkaline Phosphatase (38-126) U/L Total Protein (6.3-8.2) g/dL Albumin (3.5-5.0) g/dL 02/24/24 02/24/24 02/24/24 Range/Units 02:00 05:55 05:55 RBC 2.39 L (3.80-5.40) m/uL Hgb 7.3 L (11.4-16.0) gm/dL Hct 23.7 L (34.0-46.0) % MCHC (31.0-37.0) g/dL RDW 17.2 H (11.5-15.5) % Plt Count (150-450) k/uL Neutrophils # (1.3-7.7) k/uL Lymphocytes # 0.5 L (1.0-4.8) k/uL PT (10.0-12.5) sec INR (<1.2) APTT (22.0-30.0) sec D-Dimer (<0.60) mg/L FEU Sodium 134 L 136 L (137-145) mmol/L Creatinine 0.51 L (0.52-1.04) mg/dL Glucose 122 H 100 H (74-99) mg/dL POC Glucose (mg/dL) (70-110) mg/dL AST 56 H (14-36) U/L Alkaline Phosphatase 153 H (38-126) U/L Total Protein 4.9 L (6.3-8.2) g/dL Albumin 3.0 L (3.5-5.0) g/dL 02/24/24 Range/Units 05:55 RBC (3.80-5.40) m/uL Hgb (11.4-16.0) gm/dL Hct (34.0-46.0) % MCHC (31.0-37.0) g/dL RDW (11.5-15.5) % Plt Count (150-450) k/uL Neutrophils # (1.3-7.7) k/uL Lymphocytes # (1.0-4.8) k/uL PT 13.3 H (10.0-12.5) sec INR 1.3 H (<1.2) APTT 84.7 H (22.0-30.0) sec D-Dimer (<0.60) mg/L FEU Sodium (137-145) mmol/L Creatinine (0.52-1.04) mg/dL Glucose (74-99) mg/dL POC Glucose (mg/dL) (70-110) mg/dL AST (14-36) U/L Alkaline Phosphatase (38-126) U/L Total Protein (6.3-8.2) g/dL Albumin (3.5-5.0) g/dL
--- NOTE | 2024-02-24 09:01 | P.PN ---
Subjective Progress Note Date: 02/24/24 Principal diagnosis: Fall from standing with nondiscplaced right femoral neck fracture, anemia. History of severe mitral regurgitation, moderate to severe tricuspid regurgitation status post mitral valve replacement and tricuspid valve repair 02/05/24, severe pulmonary hypertension, chronic heart failure with preserved left ventricular systolic function, third-degree heart block status post Micra AV device 02/08/24, mild CAD, hyperlipidemia, COPD on home oxygen at night and PRN, recent pneumonia, GERD/suspected stress gastritis, previous tobacco dependence with recent cessation, occasional marijuana use, chronic narcotic dependence, and family history of coronary artery disease with mother from myocardial infarction in her 70s POD#1 in situ screw fixation right femoral neck fracture by Dr. Mendoza Acute hypoxic respiratory failure requiring BiPAP The patient was seen and examined laying in bed in the intensive care unit. Currently calm and sleeping on BiPAP although was restless, agitated, very short of breath last evening. She was transferred to the intensive care unit for closer monitoring and BiPAP use. Daughter is at bedside and updated. Currently in sinus rhythm, hemodynamically stable. D-dimer was elevated last night and there is concern for pulmonary embolism, patient was started on IV heparin. Per the daughter the patient is too short of breath to be able to lie flat for CTA of the chest. Patient is receiving IV diuresis per cardiology. Echocardiogram to be completed today. Objective - Vital Signs Vital signs: Vital Signs Temp 97.9 F 02/23/24 15:23 Pulse 91 02/24/24 07:30 Resp 22 02/24/24 07:30 BP 113/74 02/24/24 07:30 Pulse Ox 100 02/24/24 07:30 FiO2 60 02/24/24 07:35 Intake & Output 02/23/24 02/24/24 02/24/24 18:59 06:59 18:59 Intake Total 300 44.25 94.573 Output Total 400 1280 35 Balance -100 -1235.75 59.573 Intake: IV 40 20 0.9 KVO 40 20 Intake, IV Titration 4.25 74.573 Amount Dexmedetomidine/0.9% NaCl 4.25 74.573 (Pmx) 400 mcg In Empty Bag 1 bag @ 0.2 MCG/KG/HR 3.4 mls/hr IV .Q24H [facility] Rx#:[id number] Oral 300 Output: Urine 400 1280 35 Other: Voiding Method Indwelling Catheter Indwelling Catheter # Voids 0 # Bowel Movements 0 - Exam CONSTITUTIONAL: Appears comfortable, cooperative, no acute distress currently RESPIRATORY: Lungs sounds coarse in the bases bilaterally. Respirations even, nonlabored. Currently BiPAP, FiO2 60%, IPAP 14, EPAP 6 CARDIOVASCULAR: S1, S2 present. Regular rate and rhythm, sinus rhythm on telemetry. Sternum stable. Palpable peripheral pulses bilaterally. Heart hugger in place GASTROINTESTINAL: Abdomen soft, nontender, nondistended. Active bowel sounds present 4 quadrants GENITOURINARY: Licona present draining clear, yellow urine. Output 20 to 50 mL/h overnight, 1680 mL in the last 24 hours INTEGUMENTARY: Skin is warm and dry. Anterior chest incision well approximated. Right hip dressing intact NEUROLOGIC: Cranial nerves II through XII intact MUSKULOSKELETAL: Able to move all extremities, strength equal bilaterally PSYCHIATRIC: Alert and oriented to person place and time - Allied health notes Allied health notes reviewed: nursing - Labs CBC & Chem 7: 02/24/24 05:55 02/24/24 05:55 Labs: Abnormal Lab Results - Last 24 Hours (Table) 02/23/24 02/23/24 02/23/24 Range/Units 11:51 20:21 20:49 RBC (3.80-5.40) m/uL Hgb (11.4-16.0) gm/dL Hct (34.0-46.0) % MCHC (31.0-37.0) g/dL RDW (11.5-15.5) % Plt Count (150-450) k/uL Neutrophils # (1.3-7.7) k/uL Lymphocytes # (1.0-4.8) k/uL PT (10.0-12.5) sec INR (<1.2) APTT (22.0-30.0) sec D-Dimer (<0.60) mg/L FEU Sodium (137-145) mmol/L Creatinine (0.52-1.04) mg/dL Glucose (74-99) mg/dL POC Glucose (mg/dL) 152 H 131 H 144 H (70-110) mg/dL AST (14-36) U/L Alkaline Phosphatase (38-126) U/L Total Protein (6.3-8.2) g/dL Albumin (3.5-5.0) g/dL 02/24/24 02/24/24 02/24/24 Range/Units 01:28 01:45 02:00 RBC (3.80-5.40) m/uL Hgb (11.4-16.0) gm/dL Hct (34.0-46.0) % MCHC (31.0-37.0) g/dL RDW (11.5-15.5) % Plt Count (150-450) k/uL Neutrophils # (1.3-7.7) k/uL Lymphocytes # (1.0-4.8) k/uL PT (10.0-12.5) sec INR (<1.2) APTT (22.0-30.0) sec D-Dimer 4.11 H (<0.60) mg/L FEU Sodium (137-145) mmol/L Creatinine (0.52-1.04) mg/dL Glucose (74-99) mg/dL POC Glucose (mg/dL) 150 H 136 H (70-110) mg/dL AST (14-36) U/L Alkaline Phosphatase (38-126) U/L Total Protein (6.3-8.2) g/dL Albumin (3.5-5.0) g/dL 02/24/24 02/24/24 02/24/24 Range/Units 02:00 02:00 05:55 RBC 2.82 L 2.39 L (3.80-5.40) m/uL Hgb 8.5 L 7.3 L (11.4-16.0) gm/dL Hct 28.1 L 23.7 L (34.0-46.0) % MCHC 30.1 L (31.0-37.0) g/dL RDW 17.3 H 17.2 H (11.5-15.5) % Plt Count 504 H (150-450) k/uL Neutrophils # 8.7 H (1.3-7.7) k/uL Lymphocytes # 0.5 L 0.5 L (1.0-4.8) k/uL PT (10.0-12.5) sec INR (<1.2) APTT (22.0-30.0) sec D-Dimer (<0.60) mg/L FEU Sodium 134 L (137-145) mmol/L Creatinine 0.51 L (0.52-1.04) mg/dL Glucose 122 H (74-99) mg/dL POC Glucose (mg/dL) (70-110) mg/dL AST (14-36) U/L Alkaline Phosphatase (38-126) U/L Total Protein (6.3-8.2) g/dL Albumin (3.5-5.0) g/dL 02/24/24 02/24/24 Range/Units 05:55 05:55 RBC (3.80-5.40) m/uL Hgb (11.4-16.0) gm/dL Hct (34.0-46.0) % MCHC (31.0-37.0) g/dL RDW (11.5-15.5) % Plt Count (150-450) k/uL Neutrophils # (1.3-7.7) k/uL Lymphocytes # (1.0-4.8) k/uL PT 13.3 H (10.0-12.5) sec INR 1.3 H (<1.2) APTT 84.7 H (22.0-30.0) sec D-Dimer (<0.60) mg/L FEU Sodium 136 L (137-145) mmol/L Creatinine (0.52-1.04) mg/dL Glucose 100 H (74-99) mg/dL POC Glucose (mg/dL) (70-110) mg/dL AST 56 H (14-36) U/L Alkaline Phosphatase 153 H (38-126) U/L Total Protein 4.9 L (6.3-8.2) g/dL Albumin 3.0 L (3.5-5.0) g/dL - Imaging and Cardiology Chest x-ray: report reviewed, image reviewed Assessment and Plan Assessment: Fall from standing, status post right femoral neck fracture, status post in situ screw fixation right femoral neck fracture by Dr. Trevinoma Pain secondary to above Anemia, expected as part of recovery after open heart surgery Acute hypoxic respiratory failure requiring BiPAP Questionable pulmonary embolism, started on IV heparin History of severe mitral regurgitation, moderate to severe tricuspid regurgitation per ENRIQUE, status post mitral valve replacement, tricuspid valve repair 02/05/24 Severe pulmonary hypertension Chronic heart failure with preserved left ventricular systolic function, EF 55- 60% Third-degree heart block, status post Micra AV device 02/08/24 Mild CAD Hyperlipidemia, treated COPD on home oxygen at night and PRN Recent pneumonia GERD, suspected stress gastritis Previous tobacco dependence, quit > 1 month ago, [id number] history Occasional marijuana use Chronic narcotic dependence Family history of coronary artery disease with mother from myocardial infarction in her 70s Plan: Continue current medication therapy, IV heparin per returned materials inspector Echo to be completed today Wean BiPAP as tolerated Increase activity as tolerated, PT/OT consulted, toe-touch on the right leg only per orthopedics Sternal precautions Encourage incentive spirometry use when off BiPAP GI/DVT prophylaxis Discharge planning per Dr. Mujica Will continue to monitor while hospitalized and make further recommendations as appropriate
[2024-02-24 09:06] LABS: ABG Base Excess 3.1 mmol/L; ABG HCO3 28 mmol/L (21-25); ABG PCO2 42 mmHg (35-45); ABG PH 7.43 (7.35-7.45); ABG PO2 254 mmHg (83-108); ABG TCO2 29 mmol/L (19-24); Allen Test Performed? Yes
[2024-02-24] MEDS: FUROSEMIDE 10 MG/ML 2 ML VIAL IV SCH (09:33)
[2024-02-24] MEDS ORDERED: HYDROmorphone 0.5 MG/0.5 ML SYRINGE IVP PRN (10:58)
[2024-02-24] MEDS: HYDROmorphone 0.5 MG/0.5 ML SYRINGE IVP PRN (11:01)
[2024-02-24] MEDS ORDERED: IPRATROPIUM-ALBUTEROL 3 ML NEB INHALATION PRN (11:29)
--- NOTE | 2024-02-24 11:32 | P.CNPUL ---
History of Present Illness Consult date: 02/24/24 Reason for consult: dyspnea History of present illness: This is a 68-year-old female patient who became acutely short of breath. The patient was on 2 L of oxygen by nasal cannula. She became restless, agitated, and thrashing and at the same time she was noted to have labored breathing. At that point, the patient got transferred to the intensive care unit. Chest x-ray was consistent with CHF and the patient was given Lasix with some urine output. She remained in a normal sinus rhythm. She did not require any pressors. Overnight, the patient continued to have increased agitation and restlessness and narcotic withdrawal was suspected. The patient was given Dilaudid. The patient was also placed on Precedex and this morning the patient is on Precedex which is running at 1.4 mcg/kg/min. She seems to be much more calm and comforta ble. She is still arousable upon stimulation. While on the BiPAP therapy, the patient has been maintained on a pressure of 14/6 with an FiO2 of 60%. Unable to obtain an adequate pulse ox. Based on that, blood gas was done and the patient was found to have a pH of 7.43 with a pCO2 of 42 and pO2 of 254 on above-mentioned BiPAP settings. Repeat chest x-ray from today is essentially unchanged and is consistent with cardiomegaly and mild pulm vas congestion. The patient remains on IV Lasix. I was concerned of a pulmonary embolism as the patient underwent a recent hip surgery for a hip fracture. I started the patient IV heparin pending further workup. The white cell count is at 5.6 with a hemoglobin 7.8 platelet count of 336. BUN is 12 with a creatinine of 0.55 resolved levels at 136. Noted the patient is status post mitral valve replacement and stress His valve repair that was done on 02/05/2024. She has CHF with preserved LV function and severe pulmonary hypertension. Postop, the patient encountered the third-degree AV block and the patient required a Micra AV device that was inserted on 02/08/2024. She has mild coronary artery disease. She has hyperlipidemia and COPD and she is on home O2. She also has history of acid reflux and gastritis. During this current admission, the patient had a nondisplaced right fibular fracture due to a fall and the patient underwent a ORIF of the right femoral neck fracture and the patient is currently postop day #1. Surgical wound site is dry clean and intact. No focal neurological deficit. Daughter is at the bedside. Review of Systems ROS unobtainable: due to mental status Past Medical History Past Medical History: Coronary Artery Disease (CAD), Heart Failure, COPD, GERD/Reflux, Hyperlipidemia, Pneumonia, Syncope Additional Past Medical History / Comment(s): Severe mitral regurgitation, moderate to severe tricuspid regurgitation, severe pulmonary hypertension, third-degree heart block History of Any Multi-Drug Resistant Organisms: None Reported Past Surgical History: Back Surgery, Section, Heart Catheterization, Pacemaker, Tubal Ligation Additional Past Surgical History / Comment(s): L4-L5 decompression. 02/05/2024 mitral valve replacement (29mm Hannah Mitris resilia), tricuspid valve repair (30 mm Hannah MC3 ring), ligation left atrial appendage (35 mm Atriclip). 02/09/24 implantation of micra AV device Past Anesthesia/Blood Transfusion Reactions: No Reported Reaction Type of Cardiac Device: Permanent Pacemaker Device Placement Date:: 02/09/24 Past Psychological History: Depression Smoking Status: Former smoker Past Alcohol Use History: None Reported Additional Past Alcohol Use History / Comment(s): < 1 pack per day smoker. Patient smoked for 45 years. No illicit drug use, no alcohol use. Past Drug Use History: Marijuana Additional Drug Use History / Comment(s): Occasional marijuana Gummies - Past Family History Mother Family Medical History: Myocardial Infarction ([place]) Additional Family Medical History / Comment(s): Mother at age 78 from myocardial infarction with history of pneumonia, 3 vessel CABG. Father Additional Family Medical History / Comment(s): Patient recently found out that the man who raised her was not her biological father, unknown history of biolo gical father Brother(s) Additional Family Medical History / Comment(s): Patient has 2 brothers and one has known spinal stenosis. Patient has 2 sisters and one has Crohn's and one has Edvin-Vieira. Patient has one daughter with Crohn's disease. Medications and Allergies Home Medications Medication Instructions Recorded Confirmed Type Citalopram Hydrobromide 40 mg PO DAILY 12/26/22 02/22/24 History [Citalopram HBr] Cyanocobalamin (Vitamin B-12) 1,000 mcg PO DAILY 12/26/22 02/22/24 History [Vitamin B-12] Fluticasone/Umeclidin/Vilanter 1 puff INHALATION RT-DAILY 12/26/22 02/22/24 History [Trelegy Ellipta 200-62.5-25] Omeprazole [PriLOSEC] 40 mg PO DAILY 12/26/22 02/22/24 History buPROPion SR [Wellbutrin SR] 150 mg PO BID 12/26/22 02/22/24 History Citalopram Hydrobromide [CeleXA] 20 mg PO DAILY 02/05/23 02/22/24 History Ipratropium-Albuterol Nebulize 3 ml INHALATION RT-QID PRN 02/05/23 02/22/24 History [Duoneb 0.5 mg-3 mg/3 ml Soln] Cholecalciferol (Vitamin D3) 50 mcg PO DAILY 02/01/24 02/22/24 History [Vitamin D3 (50 Mcg = 2000 Iu)] Folic Acid 1 mg PO DAILY 02/01/24 02/22/24 History Ascorbic Acid [Vitamin C] 500 mg PO BID-W/MEALS tab 02/15/24 02/22/24 Rx Aspirin 325 mg PO DAILY tab 02/15/24 02/22/24 Rx Calcium Carbonate [Tums] 1,000 mg PO QID PRN tab 02/15/24 02/22/24 Rx Clopidogrel [Plavix] 75 mg PO DAILY tab 02/15/24 02/22/24 Rx Ferrous Sulfate [Iron (65 MG 325 mg PO BID-W/MEALS tab 02/15/24 02/22/24 Rx Elemental)] Furosemide [Lasix] 40 mg PO DAILY tab 02/15/24 02/22/24 Rx Gabapentin [Neurontin] 100 mg PO TID cap 02/15/24 02/22/24 Rx Losartan [Cozaar] 12.5 mg PO DAILY tab 02/15/24 02/22/24 Rx Pantoprazole [Protonix] 40 mg PO AC-BID tab 02/15/24 02/22/24 Rx Atorvastatin [Lipitor] 40 mg PO HS 02/22/24 02/22/24 History Budesonide [Pulmicort] 1 mg INHALATION RT-BID@0800,1700 02/22/24 02/22/24 History Dextroamphetamine/Amphetamine 10 mg PO BID@0700,1700 02/22/24 02/22/24 History [Adderall] Formoterol Fumarate [Perforomist] 20 mcg INHALATION RT-BID@0800,1700 02/22/24 02/22/24 History HYDROcodone/APAP 10-325MG [Moselle 1 tab PO Q8H 02/22/24 02/22/24 History 10-325] Lidocaine Viscous 2% [Xylocaine 10 ml MUCOUS MEM W/SUPPER 02/22/24 02/22/24 History Viscous] Mag Hydrox/Al Hydrox/Simeth 30 ml PO W/SUPPER 02/22/24 02/22/24 History [Maalox] Allergies Allergy/AdvReac Type Severity Reaction Status Date / Time amoxicillin [From Augmentin] AdvReac Nausea & Verified 02/22/24 07:58 Vomiting clavulanic acid AdvReac Nausea & Verified 02/22/24 07:58 [From Augmentin] Vomiting Physical Exam Vitals: Vital Signs Temp Pulse Pulse Resp BP BP Pulse Ox 02/24/24 11:26 100 02/24/24 11:00 92 24 90/72 100 02/24/24 10:30 90 16 90/72 100 02/24/24 10:00 91 24 115/77 100 02/24/24 09:30 91 20 118/71 100 02/24/24 09:11 02/24/24 09:00 78 18 121/84 100 02/24/24 08:30 91 18 119/77 100 02/24/24 08:00 97.8 F 91 20 113/73 98 02/24/24 07:35 02/24/24 07:30 91 22 113/74 100 02/24/24 07:00 91 24 92/61 100 02/24/24 06:30 90 26 H 113/68 98 02/24/24 06:00 92 20 105/69 98 02/24/24 05:30 91 24 94/64 02/24/24 05:00 90 26 H 105/64 91 L 02/24/24 04:30 93 30 H 96/71 91 L 02/24/24 04:00 92 23 93/65 96 02/24/24 03:30 89 16 106/92 02/24/24 03:00 95 35 H 134/70 02/24/24 02:30 20 128/69 09/25/24 02:00 94 20 149/85 100 02/24/24 01:50 99 40 H 157/98 100 02/24/24 01:42 97 02/24/24 01:30 88 02/24/24 01:15 95 02/24/24 00:14 02/23/24 21:22 02/23/24 21:18 83 02/23/24 21:12 02/23/24 21:07 100 02/23/24 21:06 100 02/23/24 20:30 30 H 02/23/24 16:34 18 93 L 02/23/24 16:32 18 89 L 02/23/24 15:40 88 02/23/24 15:23 97.9 F 90 93 18 135/79 99 02/23/24 13:21 18 02/23/24 11:32 84 FiO2 02/24/24 11:26 02/24/24 11:00 02/24/24 10:30 02/24/24 10:00 02/24/24 09:30 02/24/24 09:11 40 02/24/24 09:00 02/24/24 08:30 02/24/24 08:00 02/24/24 07:35 60 02/24/24 07:30 02/24/24 07:00 02/24/24 06:30 02/24/24 06:00 02/24/24 05:30 02/24/24 05:00 02/24/24 04:30 02/24/24 04:00 60 02/24/24 03:30 60 02/24/24 03:00 02/24/24 02:30 02/24/24 02:00 02/24/24 01:50 60 02/24/24 01:42 02/24/24 01:30 60 02/24/24 01:15 02/24/24 00:14 60 02/23/24 21:22 80 02/23/24 21:18 02/23/24 21:12 100 02/23/24 21:07 02/23/24 21:06 02/23/24 20:30 02/23/24 16:34 02/23/24 16:32 02/23/24 15:40 02/23/24 15:23 02/23/24 13:21 02/23/24 11:32 Intake and Output 02/23/24 02/24/24 02/24/24 22:59 06:59 14:59 Intake Total 300 44.25 124.573 Output Total 1280 555 Balance 300 -1235.75 -430.427 Intake: IV 40 50 0.9 KVO 40 50 Intake, IV Titration 4.25 74.573 Amount Dexmedetomidine/0.9% NaCl 4.25 74.573 (Pmx) 400 mcg In Empty Bag 1 bag @ 0.2 MCG/KG/HR 3.4 mls/hr IV .Q24H [facility] Rx#:[id number] Oral 300 Output: Urine 1280 555 Other: Voiding Method Bedpan Indwelling Catheter Indwelling Catheter Diaper Incontinent # Voids 0 # Bowel Movements 0 General Appearance,, comfortable, sedated and the patient is currently on Precedex and the patient is also utilizing a BiPAP pressure of 14/6 with an FiO2 of 60% Head exam was generally normal. There was no scleral icterus or corneal arcus. Mucous membranes were moist. Neck was supple and without jugular venous distension, thyromegaly, or carotid bruits. Carotids were easily palpable bilaterally. There was no adenopathy. Lung sounds are diminished bilaterally and the patient has limited crackles lung base bilaterally. No wheezes. Cardiac exam revealed the PMI to be normally situated and sized. The rhythm was regular and no extrasystoles were noted during several minutes of auscultation. The first and second heart sounds were normal and physiologic splitting of the second heart sound was noted. There were no murmurs, rubs, clicks, or gallops. The patient has a thoracotomy scar which is dry clean and intact. Abdominal exam revealed normal bowel sounds. The abdomen was soft, non-tender, and without masses, organomegaly, or appreciable enlargement of the abdominal aorta. Examination of the extremities revealed easily palpable radial, femoral and pedal pulses. There was no cyanosis, clubbing or edema. Examination of the skin revealed no evidence of significant rashes, suspicious appearing nevi or other concerning lesions. Neurologically, the patient is sedated. Occasional thrashing and agitation. Results - Laboratory Findings CBC and BMP: 02/24/24 05:55 02/24/24 05:55 ABG ABG pH 7.43 (7.35-7.45) 02/24/24 09:05 ABG pCO2 42 mmHg (35-45) 02/24/24 09:05 ABG pO2 254 mmHg (83-108) H 02/24/24 09:05 ABG O2 Saturation 100.0 % (94-97) H 02/24/24 09:05 PT/INR, D-dimer PT 13.3 sec (10.0-12.5) H 02/24/24 05:55 INR 1.3 (<1.2) H 02/24/24 05:55 D-Dimer 4.11 mg/L FEU (<0.60) H 02/24/24 02:00 Abnormal lab findings: Abnormal Labs 02/21/24 02/21/24 02/22/24 20:25 20:25 02:39 RBC 2.56 L Hgb 8.1 L Hct 24.7 L MCHC RDW 18.2 H Plt Count Neutrophils # Lymphocytes # 0.8 L PT INR APTT D-Dimer ABG pO2 ABG HCO3 ABG Total CO2 ABG O2 Saturation Hemoglobin Sodium 136 L Potassium 3.2 L Creatinine Glucose POC Glucose (mg/dL) Calcium 8.3 L AST Alkaline Phosphatase Total Protein 4.9 L Albumin 3.0 L Ur Leukocyte Esterase Small H Urine WBC 7 H Urine Bacteria Rare H Hyaline Casts 4 H Urine Mucus Rare H 02/22/24 02/22/24 02/22/24 06:48 10:33 22:14 RBC 2.43 L Hgb 7.4 L Hct 24.0 L MCHC 30.8 L RDW 17.4 H Plt Count Neutrophils # Lymphocytes # 0.7 L PT INR APTT D-Dimer ABG pO2 ABG HCO3 ABG Total CO2 ABG O2 Saturation Hemoglobin Sodium 133 L Potassium Creatinine Glucose 71 L POC Glucose (mg/dL) 116 H Calcium AST Alkaline Phosphatase Total Protein Albumin Ur Leukocyte Esterase Urine WBC Urine Bacteria Hyaline Casts Urine Mucus 02/23/24 02/23/24 02/23/24 07:29 07:29 11:51 RBC 2.63 L Hgb 8.2 L Hct 26.1 L MCHC RDW 17.9 H Plt Count Neutrophils # Lymphocytes # PT INR APTT D-Dimer ABG pO2 ABG HCO3 ABG Total CO2 ABG O2 Saturation Hemoglobin Sodium 136 L Potassium Creatinine Glucose POC Glucose (mg/dL) 152 H Calcium AST Alkaline Phosphatase Total Protein Albumin Ur Leukocyte Esterase Urine WBC Urine Bacteria Hyaline Casts Urine Mucus 02/23/24 02/23/24 02/24/24 20:21 20:49 01:28 RBC Hgb Hct MCHC RDW Plt Count Neutrophils # Lymphocytes # PT INR APTT D-Dimer ABG pO2 ABG HCO3 ABG Total CO2 ABG O2 Saturation Hemoglobin Sodium Potassium Creatinine Glucose POC Glucose (mg/dL) 131 H 144 H 150 H Calcium AST Alkaline Phosphatase Total Protein Albumin Ur Leukocyte Esterase Urine WBC Urine Bacteria Hyaline Casts Urine Mucus 02/24/24 02/24/24 02/24/24 01:45 02:00 02:00 RBC 2.82 L Hgb 8.5 L Hct 28.1 L MCHC 30.1 L RDW 17.3 H Plt Count 504 H Neutrophils # 8.7 H Lymphocytes # 0.5 L PT INR APTT D-Dimer 4.11 H ABG pO2 ABG HCO3 ABG Total CO2 ABG O2 Saturation Hemoglobin Sodium Potassium Creatinine Glucose POC Glucose (mg/dL) 136 H Calcium AST Alkaline Phosphatase Total Protein Albumin Ur Leukocyte Esterase Urine WBC Urine Bacteria Hyaline Casts Urine Mucus 02/24/24 02/24/24 02/24/24 02:00 05:55 05:55 RBC 2.39 L Hgb 7.3 L Hct 23.7 L MCHC RDW 17.2 H Plt Count Neutrophils # Lymphocytes # 0.5 L PT INR APTT D-Dimer ABG pO2 ABG HCO3 ABG Total CO2 ABG O2 Saturation Hemoglobin Sodium 134 L 136 L Potassium Creatinine 0.51 L Glucose 122 H 100 H POC Glucose (mg/dL) Calcium AST 56 H Alkaline Phosphatase 153 H Total Protein 4.9 L Albumin 3.0 L Ur Leukocyte Esterase Urine WBC Urine Bacteria Hyaline Casts Urine Mucus 02/24/24 02/24/24 05:55 09:05 RBC Hgb Hct MCHC RDW Plt Count Neutrophils # Lymphocytes # PT 13.3 H INR 1.3 H APTT 84.7 H D-Dimer ABG pO2 254 H ABG HCO3 28 H ABG Total CO2 29 H ABG O2 Saturation 100.0 H Hemoglobin 7.2 L Sodium Potassium Creatinine Glucose POC Glucose (mg/dL) Calcium AST Alkaline Phosphatase Total Protein Albumin Ur Leukocyte Esterase Urine WBC Urine Bacteria Hyaline Casts Urine Mucus - Diagnostic Findings Chest x-ray: image reviewed Assessment and Plan Plan: Acute change in mental status with increased agitation, restlessness and confusion. After having a lengthy discussion with the patient's daughter, I do suspect that the patient may have an underlying component of narcotic withdrawal as the patient has been utilizing excessive without amount of narcotics on outpatient basis and she has been dependent on her Moselle's. Currently she is on Precedex. Currently she is also receiving Dilaudid on a as needed basis. She is much more calm and comfortable. No focal neurological deficits. CAT scan of the brain will be needed at a later stage once the patient's condition is more stable. Acute hypoxic respiratory failure, currently on a BiPAP with adequate oxygenation based on the blood gases and the patient's chest x-ray showing a component of CHF with cardiomegaly, pulmonary embolism is felt to be less likely at this point in time. Fall from standing, status post right femoral neck fracture, status post in situ screw fixation right femoral neck fracture by Dr. Mendoza, the patient is postop day #1 Pain secondary to above, the patient has chronic back pain dependent on Moselle on outpatient basis. Anemia, expected as part of recovery after open heart surgery History of severe mitral regurgitation, moderate to severe tricuspid regurgitation per ENRIQUE, status post mitral valve replacement, tricuspid valve repair 02/05/24 Severe pulmonary hypertension Chronic heart failure with preserved left ventricular systolic function, EF 55- 60% Third-degree heart block, status post Micra AV device 02/08/24 Mild CAD Hyperlipidemia, treated COPD on home oxygen at night and PRN GERD, suspected stress gastritis Previous tobacco dependence, quit > 1 month ago, [id number] history Occasional marijuana use Chronic narcotic dependence Plan Continue Dilaudid for pain control and this is also helping for any potential narcotic withdrawal symptoms. Wean off Precedex and gradually discontinue Assess mental status and evaluate the need for a CAT scan for later stage Discontinue the BiPAP and switch this patient to a nasal cannula and monitor FiO2 closely Echocardiogram today Continue IV Lasix Continue IV heparin. Pulm embolism is suspected although the possibility is low. Will keep the IV heparin for now pending further evaluation and monitoring her progress Change IV fluids to KVO Cardiology consultation Neuroconsultation Will continue to follow
[2024-02-24] MEDS: HALOPERIDOL LACTATE 5 MG/ML 1 ML VIAL IVP PRN (11:57)
[2024-02-24] MEDS: IPRATROPIUM-ALBUTEROL 3 ML NEB INHALATION SCH (12:04)
[2024-02-24 12:11] LABS: Glucose,Whole Blood 111 mg/dL (70-110)
[2024-02-24] MEDS: OLANZapine 10 MG VIAL IM STA (13:41)
[2024-02-24] MEDS: HEPARIN SODIUM 1,000 UN/ML (10ML VL) IV PRN (14:02)
--- NOTE | 2024-02-24 15:43 | P.CONS ---
History of Present Illness - Reason for Consult Consult date: 02/24/24 rehab recommendations - Chief Complaint fall s/p femur fx - History of Present Illness Ms Vazquez is a 68 y/o female who lives alone on a first floor apartment [address], was recently at [facility] after her cardiac surgery but prior to surgery was independent with mobility and ADLs. She was home for a couple of days from [facility]. She was using a 4ww in the community. She has supportive neighbors. She wears O2 at night. Patient admitted to the hospital with a fall from standing with nondisplaced ri ght femoral neck fracture. History of severe mitral regurgitation, moderate to severe tricuspid regurgitation status post mitral valve replacement and tricuspid valve repair 02/05/24, severe pulmonary hypertension, chronic heart failure with preserved left ventricular systolic function, third-degree heart block status post Micra AV device 02/08/24, mild CAD, hyperlipidemia, COPD on home oxygen at night and PRN, recent pneumonia, GERD/suspected stress gastritis, previous tobacco dependence with recent cessation, occasional marijuana use, chronic narcotic dependence, and family history of coronary artery disease with mother from myocardial infarction in her 70s. She underwent insitu screw fixation of right femoral neck fracture by Dr. Mendoza She was transferred to the ICU, D-dimer was elevated last night and there is concern for pulmonary embolism, patient was started on IV heparin. CTA of the chest was ordered. Echocardiogram to be completed today. PM&R consulted for rehab recommendations. Patient was seen by therapies, needing max to total assist. 02/24/24: Patient is in restraints, per nursing has had to have several sedatives. Patient states she wants her clothes. She admits that she tripped over her slippers at home which is what caused the fall. She has no current complaints of chest pain or SOB, on RA. Past Medical History Past Medical History: Coronary Artery Disease (CAD), Heart Failure, COPD, GERD/Reflux, Hyperlipidemia, Pneumonia, Syncope Additional Past Medical History / Comment(s): Severe mitral regurgitation, moderate to severe tricuspid regurgitation, severe pulmonary hypertension, third-degree heart block History of Any Multi-Drug Resistant Organisms: None Reported Past Surgical History: Back Surgery, Section, Heart Catheterization, Pacemaker, Tubal Ligation Additional Past Surgical History / Comment(s): L4-L5 decompression. 02/05/2024 mitral valve replacement (29mm Hannah Mitris resilia), tricuspid valve repair (30 mm Hannah MC3 ring), ligation left atrial appendage (35 mm Atriclip). 02/09/24 implantation of micra AV device Past Anesthesia/Blood Transfusion Reactions: No Reported Reaction Type of Cardiac Device: Permanent Pacemaker Device Placement Date:: 02/09/24 Past Psychological History: Depression Smoking Status: Former smoker Past Alcohol Use History: None Reported Additional Past Alcohol Use History / Comment(s): < 1 pack per day smoker. Patient smoked for 45 years. No illicit drug use, no alcohol use. Past Drug Use History: Marijuana Additional Drug Use History / Comment(s): Occasional marijuana Gummies - Past Family History Mother Family Medical History: Myocardial Infarction ([place]) Additional Family Medical History / Comment(s): Mother at age 78 from m yocardial infarction with history of pneumonia, 3 vessel CABG. Father Additional Family Medical History / Comment(s): Patient recently found out that the man who raised her was not her biological father, unknown history of biological father Brother(s) Additional Family Medical History / Comment(s): Patient has 2 brothers and one has known spinal stenosis. Patient has 2 sisters and one has Crohn's and one has Edvin-Vieira. Patient has one daughter with Crohn's disease. Medications and Allergies Home Medications Medication Instructions Recorded Confirmed Type Citalopram Hydrobromide 40 mg PO DAILY 12/26/22 02/22/24 History [Citalopram HBr] Cyanocobalamin (Vitamin B-12) 1,000 mcg PO DAILY 12/26/22 02/22/24 History [Vitamin B-12] Fluticasone/Umeclidin/Vilanter 1 puff INHALATION RT-DAILY 12/26/22 02/22/24 History [Trelegy Ellipta 200-62.5-25] Omeprazole [PriLOSEC] 40 mg PO DAILY 12/26/22 02/22/24 History buPROPion SR [Wellbutrin SR] 150 mg PO BID 12/26/22 02/22/24 History Citalopram Hydrobromide [CeleXA] 20 mg PO DAILY 02/05/23 02/22/24 History Ipratropium-Albuterol Nebulize 3 ml INHALATION RT-QID PRN 02/05/23 02/22/24 History [Duoneb 0.5 mg-3 mg/3 ml Soln] Cholecalciferol (Vitamin D3) 50 mcg PO DAILY 02/01/24 02/22/24 History [Vitamin D3 (50 Mcg = 2000 Iu)] Folic Acid 1 mg PO DAILY 02/01/24 02/22/24 History Ascorbic Acid [Vitamin C] 500 mg PO BID-W/MEALS tab 02/15/24 02/22/24 Rx Aspirin 325 mg PO DAILY tab 02/15/24 02/22/24 Rx Calcium Carbonate [Tums] 1,000 mg PO QID PRN tab 02/15/24 02/22/24 Rx Clopidogrel [Plavix] 75 mg PO DAILY tab 02/15/24 02/22/24 Rx Ferrous Sulfate [Iron (65 MG 325 mg PO BID-W/MEALS tab 02/15/24 02/22/24 Rx Elemental)] Furosemide [Lasix] 40 mg PO DAILY tab 02/15/24 02/22/24 Rx Gabapentin [Neurontin] 100 mg PO TID cap 02/15/24 02/22/24 Rx Losartan [Cozaar] 12.5 mg PO DAILY tab 02/15/24 02/22/24 Rx Pantoprazole [Protonix] 40 mg PO AC-BID tab 02/15/24 02/22/24 Rx Atorvastatin [Lipitor] 40 mg PO HS 02/22/24 02/22/24 History Budesonide [Pulmicort] 1 mg INHALATION RT-BID@0800,1700 02/22/24 02/22/24 History Dextroamphetamine/Amphetamine 10 mg PO BID@0700,1700 02/22/24 02/22/24 History [Adderall] Formoterol Fumarate [Perforomist] 20 mcg INHALATION RT-BID@0800,1700 02/22/24 02/22/24 History HYDROcodone/APAP 10-325MG [Elkins 1 tab PO Q8H 02/22/24 02/22/24 History 10-325] Lidocaine Viscous 2% [Xylocaine 10 ml MUCOUS MEM W/SUPPER 02/22/24 02/22/24 History Viscous] Mag Hydrox/Al Hydrox/Simeth 30 ml PO W/SUPPER 02/22/24 02/22/24 History [Maalox] Allergies Allergy/AdvReac Type Severity Reaction Status Date / Time amoxicillin [From Augmentin] AdvReac Nausea & Verified 02/22/24 07:58 Vomiting clavulanic acid AdvReac Nausea & Verified 02/22/24 07:58 [From Augmentin] Vomiting Physical Exam Vitals: Vital Signs Temp Pulse Pulse Resp BP BP Pulse Ox 02/24/24 10:00 91 24 115/77 100 02/24/24 09:30 91 20 118/71 100 02/24/24 09:11 02/24/24 09:00 78 18 121/84 100 02/24/24 08:30 91 18 119/77 100 02/24/24 08:00 97.8 F 91 20 113/73 98 02/24/24 07:35 02/24/24 07:30 91 22 113/74 100 02/24/24 07:00 91 24 92/61 100 02/24/24 06:30 90 26 H 113/68 98 02/24/24 06:00 92 20 105/69 98 02/24/24 05:30 91 24 94/64 02/24/24 05:00 90 26 H 105/64 91 L 02/24/24 04:30 93 30 H 96/71 91 L 02/24/24 04:00 92 23 93/65 96 02/24/24 03:30 89 16 106/92 02/24/24 03:00 95 35 H 134/70 02/24/24 02:30 20 128/69 02/24/24 02:00 94 20 149/85 100 02/24/24 01:50 99 40 H 157/98 100 02/24/24 01:42 97 02/24/24 01:30 88 02/24/24 01:15 95 02/24/24 00:14 02/23/24 21:22 02/23/24 21:18 83 02/23/24 21:12 02/23/24 21:07 100 02/23/24 21:06 100 02/23/24 20:30 30 H 02/23/24 16:34 18 93 L 02/23/24 16:32 18 89 L 02/23/24 15:40 88 02/23/24 15:23 97.9 F 90 93 18 135/79 99 02/23/24 13:21 18 02/23/24 11:32 84 02/23/24 11:19 97.9 F 80 96 18 128/72 98 FiO2 02/24/24 10:00 02/24/24 09:30 02/24/24 09:11 40 02/24/24 09:00 02/24/24 08:30 02/24/24 08:00 02/24/24 07:35 60 02/24/24 07:30 02/24/24 07:00 02/24/24 06:30 02/24/24 06:00 02/24/24 05:30 02/24/24 05:00 02/24/24 04:30 02/24/24 04:00 60 02/24/24 03:30 60 02/24/24 03:00 02/24/24 02:30 02/24/24 02:00 02/24/24 01:50 60 02/24/24 01:42 02/24/24 01:30 60 02/24/24 01:15 02/24/24 00:14 60 02/23/24 21:22 80 02/23/24 21:18 02/23/24 21:12 100 02/23/24 21:07 02/23/24 21:06 02/23/24 20:30 02/23/24 16:34 02/23/24 16:32 02/23/24 15:40 02/23/24 15:23 02/23/24 13:21 02/23/24 11:32 02/23/24 11:19 Intake and Output 02/23/24 02/24/24 02/24/24 22:59 06:59 14:59 Intake Total 300 44.25 114.573 Output Total 1280 375 Balance 300 -1235.75 -260.427 Intake: IV 40 40 0.9 KVO 40 40 Intake, IV Titration 4.25 74.573 Amount Dexmedetomidine/0.9% NaCl 4.25 74.573 (Pmx) 400 mcg In Empty Bag 1 bag @ 0.2 MCG/KG/HR 3.4 mls/hr IV .Q24H [facility] Rx#:[id number] Oral 300 Output: Urine 1280 375 Other: Voiding Method Bedpan Indwelling Catheter Indwelling Catheter Diaper Incontinent # Voids 0 # Bowel Movements 0 HEENT: NC/AT, external ears intact, hearing intact to conversational speech Cardiovascular: B/L calves with no pitting edema, satellite project site monitor on Respiratory: Even and unlabored breathing on RA Abdomen: not assessed Genitourinary: not assessed Musculoskeletal: Patient in bilateral wrist restraints, able to move distal legs Neurological: Alert but confused, recently received sedating medications Skin: Skin intact where visible to head, neck, and bilateral upper and lower extremities EXCEPT: hip incision- not visualized Psychiatric: sedate, confused Results CBC & Chem 7: 02/24/24 05:55 02/24/24 05:55 Labs: Abnormal Lab Results - Last 24 Hours (Table) 02/23/24 02/23/24 02/23/24 Range/Units 11:51 20:21 20:49 RBC (3.80-5.40) m/uL Hgb (11.4-16.0) gm/dL Hct (34.0-46.0) % MCHC (31.0-37.0) g/dL RDW (11.5-15.5) % Plt Count (150-450) k/uL Neutrophils # (1.3-7.7) k/uL Lymphocytes # (1.0-4.8) k/uL PT (10.0-12.5) sec INR (<1.2) APTT (22.0-30.0) sec D-Dimer (<0.60) mg/L FEU ABG pO2 (83-108) mmHg ABG HCO3 (21-25) mmol/L ABG Total CO2 (19-24) mmol/L ABG O2 Saturation (94-97) % Hemoglobin (11.4-16.0) gm/dL Sodium (137-145) mmol/L Creatinine (0.52-1.04) mg/dL Glucose (74-99) mg/dL POC Glucose (mg/dL) 152 H 131 H 144 H (70-110) mg/dL AST (14-36) U/L Alkaline Phosphatase (38-126) U/L Total Protein (6.3-8.2) g/dL Albumin (3.5-5.0) g/dL 02/24/24 02/24/24 02/24/24 Range/Units 01:28 01:45 02:00 RBC (3.80-5.40) m/uL Hgb (11.4-16.0) gm/dL Hct (34.0-46.0) % MCHC (31.0-37.0) g/dL RDW (11.5-15.5) % Plt Count (150-450) k/uL Neutrophils # (1.3-7.7) k/uL Lymphocytes # (1.0-4.8) k/uL PT (10.0-12.5) sec INR (<1.2) APTT (22.0-30.0) sec D-Dimer 4.11 H (<0.60) mg/L FEU ABG pO2 (83-108) mmHg ABG HCO3 (21-25) mmol/L ABG Total CO2 (19-24) mmol/L ABG O2 Saturation (94-97) % Hemoglobin (11.4-16.0) gm/dL Sodium (137-145) mmol/L Creatinine (0.52-1.04) mg/dL Glucose (74-99) mg/dL POC Glucose (mg/dL) 150 H 136 H (70-110) mg/dL AST (14-36) U/L Alkaline Phosphatase (38-126) U/L Total Protein (6.3-8.2) g/dL Albumin (3.5-5.0) g/dL 02/24/24 02/24/24 02/24/24 Range/Units 02:00 02:00 05:55 RBC 2.82 L 2.39 L (3.80-5.40) m/uL Hgb 8.5 L 7.3 L (11.4-16.0) gm/dL Hct 28.1 L 23.7 L (34.0-46.0) % MCHC 30.1 L (31.0-37.0) g/dL RDW 17.3 H 17.2 H (11.5-15.5) % Plt Count 504 H (150-450) k/uL Neutrophils # 8.7 H (1.3-7.7) k/uL Lymphocytes # 0.5 L 0.5 L (1.0-4.8) k/uL PT (10.0-12.5) sec INR (<1.2) APTT (22.0-30.0) sec D-Dimer (<0.60) mg/L FEU ABG pO2 (83-108) mmHg ABG HCO3 (21-25) mmol/L ABG Total CO2 (19-24) mmol/L ABG O2 Saturation (94-97) % Hemoglobin (11.4-16.0) gm/dL Sodium 134 L (137-145) mmol/L Creatinine 0.51 L (0.52-1.04) mg/dL Glucose 122 H (74-99) mg/dL POC Glucose (mg/dL) (70-110) mg/dL AST (14-36) U/L Alkaline Phosphatase (38-126) U/L Total Protein (6.3-8.2) g/dL Albumin (3.5-5.0) g/dL 02/24/24 02/24/24 02/24/24 Range/Units 05:55 05:55 09:05 RBC (3.80-5.40) m/uL Hgb (11.4-16.0) gm/dL Hct (34.0-46.0) % MCHC (31.0-37.0) g/dL RDW (11.5-15.5) % Plt Count (150-450) k/uL Neutrophils # (1.3-7.7) k/uL Lymphocytes # (1.0-4.8) k/uL PT 13.3 H (10.0-12.5) sec INR 1.3 H (<1.2) APTT 84.7 H (22.0-30.0) sec D-Dimer (<0.60) mg/L FEU ABG pO2 254 H (83-108) mmHg ABG HCO3 28 H (21-25) mmol/L ABG Total CO2 29 H (19-24) mmol/L ABG O2 Saturation 100.0 H (94-97) % Hemoglobin 7.2 L (11.4-16.0) gm/dL Sodium 136 L (137-145) mmol/L Creatinine (0.52-1.04) mg/dL Glucose 100 H (74-99) mg/dL POC Glucose (mg/dL) (70-110) mg/dL AST 56 H (14-36) U/L Alkaline Phosphatase 153 H (38-126) U/L Total Protein 4.9 L (6.3-8.2) g/dL Albumin 3.0 L (3.5-5.0) g/dL Assessment and Plan Assessment: #Mechanical fall resulting in right femoral neck fracture s/p ORIF -TTWB -fall precautions #SOB, elevated D dimer -r/o PE, CT pending -pulmonology following # Recent Cardiac debility secondary to Severe mitral regurgitation, moderate to severe tricuspid regurgitation, moderate aortic insufficiency s/p bioprosthetic mitral valve replacement and tricuspid valve repair # Third degree heart blood s/p pacemaker placement -pacemaker precautions #severe pulmonary hypertension #acute heart failure with preserved left ventricular systolic function #Acute blood loss anemia, expected given hemodilution and cardiopulmonary bypass pump. #Depression-Wellbutrin, Celexa #chronic back pain with h/o lumbar sx-patient reports she needs back and neck sx #DVT Proph-Heparin SQ #Comorbidities: History of mild CAD, hyperlipidemia, COPD on home oxygen at night and PRN, recent pneumonia, GERD, previous tobacco dependence, occasional marijuana use # Your medical dx and management Dispo: Patient needing significant assistance at this time, she lives alone, recommend return back to [facility] for continued rehab. She does not have out of network benefits for IPR at [facility]. Patient seen and examined in coordination with Dr Collins. Thank you for consulting our services.
--- NOTE | 2024-02-24 15:51 | P.PN ---
Subjective Progress Note Date: 02/24/24 This is a 68-year-old female patient who became acutely short of breath. At that point, the patient got transferred to the intensive care unit. She underwent ORIF of the right femoral neck fracture and the patient is currently postop day #2. Objective - Vital Signs Vital signs: Vital Signs Temp 98.1 F 02/24/24 12:00 Pulse 92 02/24/24 15:00 Resp 22 02/24/24 15:00 BP 114/67 02/24/24 15:00 Pulse Ox 100 02/24/24 15:00 FiO2 40 02/24/24 09:11 Intake & Output 02/23/24 02/24/24 02/24/24 18:59 06:59 18:59 Intake Total 300 44.25 349.046 Output Total 400 1280 715 Balance -100 -1235.75 -365.954 Intake: IV 40 90 0.9 KVO 40 90 Intake, IV Titration 4.25 259.046 Amount Dexmedetomidine/0.9% NaCl 4.25 172.550 (Pmx) 400 mcg In Empty Bag 1 bag @ 0.2 MCG/KG/HR 3.4 mls/hr IV .Q24H [facility] Rx#:[id number] Heparin Sod,Pork in 0.45% 86.496 NaCl 25,000 unit In 0.45 % NaCl 1 250ml.bag @ 12 UNITS/KG/HR 8.16 mls/hr IV .Q24H [facility] Rx#: [id number] Oral 300 Output: Urine 400 1280 715 Other: Voiding Method Indwelling Catheter Indwelling Catheter Indwelling Catheter # Voids 0 # Bowel Movements 0 - Exam The patient is sleeping in bed. She does not open her eyes or respond to verbal commands. I did not uncover patient per request by nursing staff to let patient remain asleep. Per nursing staff, they examined the dressing and the surgical dressing over the lateral aspect of her right hip is intact with no drainage or strike through. - Labs CBC & Chem 7: 02/24/24 05:55 02/24/24 05:55 Labs: Abnormal Lab Results - Last 24 Hours (Table) 02/23/24 02/23/24 02/24/24 Range/Units 20:21 20:49 01:28 RBC (3.80-5.40) m/uL Hgb (11.4-16.0) gm/dL Hct (34.0-46.0) % MCHC (31.0-37.0) g/dL RDW (11.5-15.5) % Plt Count (150-450) k/uL Neutrophils # (1.3-7.7) k/uL Lymphocytes # (1.0-4.8) k/uL PT (10.0-12.5) sec INR (<1.2) APTT (22.0-30.0) sec D-Dimer (<0.60) mg/L FEU ABG pO2 (83-108) mmHg ABG HCO3 (21-25) mmol/L ABG Total CO2 (19-24) mmol/L ABG O2 Saturation (94-97) % Hemoglobin (11.4-16.0) gm/dL Sodium (137-145) mmol/L Creatinine (0.52-1.04) mg/dL Glucose (74-99) mg/dL POC Glucose (mg/dL) 131 H 144 H 150 H (70-110) mg/dL AST (14-36) U/L Alkaline Phosphatase (38-126) U/L Total Protein (6.3-8.2) g/dL Albumin (3.5-5.0) g/dL 02/24/24 02/24/24 02/24/24 Range/Units 01:45 02:00 02:00 RBC 2.82 L (3.80-5.40) m/uL Hgb 8.5 L (11.4-16.0) gm/dL Hct 28.1 L (34.0-46.0) % MCHC 30.1 L (31.0-37.0) g/dL RDW 17.3 H (11.5-15.5) % Plt Count 504 H (150-450) k/uL Neutrophils # 8.7 H (1.3-7.7) k/uL Lymphocytes # 0.5 L (1.0-4.8) k/uL PT (10.0-12.5) sec INR (<1.2) APTT (22.0-30.0) sec D-Dimer 4.11 H (<0.60) mg/L FEU ABG pO2 (83-108) mmHg ABG HCO3 (21-25) mmol/L ABG Total CO2 (19-24) mmol/L ABG O2 Saturation (94-97) % Hemoglobin (11.4-16.0) gm/dL Sodium (137-145) mmol/L Creatinine (0.52-1.04) mg/dL Glucose (74-99) mg/dL POC Glucose (mg/dL) 136 H (70-110) mg/dL AST (14-36) U/L Alkaline Phosphatase (38-126) U/L Total Protein (6.3-8.2) g/dL Albumin (3.5-5.0) g/dL 02/24/24 02/24/24 02/24/24 Range/Units 02:00 05:55 05:55 RBC 2.39 L (3.80-5.40) m/uL Hgb 7.3 L (11.4-16.0) gm/dL Hct 23.7 L (34.0-46.0) % MCHC (31.0-37.0) g/dL RDW 17.2 H (11.5-15.5) % Plt Count (150-450) k/uL Neutrophils # (1.3-7.7) k/uL Lymphocytes # 0.5 L (1.0-4.8) k/uL PT (10.0-12.5) sec INR (<1.2) APTT (22.0-30.0) sec D-Dimer (<0.60) mg/L FEU ABG pO2 (83-108) mmHg ABG HCO3 (21-25) mmol/L ABG Total CO2 (19-24) mmol/L ABG O2 Saturation (94-97) % Hemoglobin (11.4-16.0) gm/dL Sodium 134 L 136 L (137-145) mmol/L Creatinine 0.51 L (0.52-1.04) mg/dL Glucose 122 H 100 H (74-99) mg/dL POC Glucose (mg/dL) (70-110) mg/dL AST 56 H (14-36) U/L Alkaline Phosphatase 153 H (38-126) U/L Total Protein 4.9 L (6.3-8.2) g/dL Albumin 3.0 L (3.5-5.0) g/dL 02/24/24 02/24/24 02/24/24 Range/Units 05:55 09:05 12:09 RBC (3.80-5.40) m/uL Hgb (11.4-16.0) gm/dL Hct (34.0-46.0) % MCHC (31.0-37.0) g/dL RDW (11.5-15.5) % Plt Count (150-450) k/uL Neutrophils # (1.3-7.7) k/uL Lymphocytes # (1.0-4.8) k/uL PT 13.3 H (10.0-12.5) sec INR 1.3 H (<1.2) APTT 84.7 H (22.0-30.0) sec D-Dimer (<0.60) mg/L FEU ABG pO2 254 H (83-108) mmHg ABG HCO3 28 H (21-25) mmol/L ABG Total CO2 29 H (19-24) mmol/L ABG O2 Saturation 100.0 H (94-97) % Hemoglobin 7.2 L (11.4-16.0) gm/dL Sodium (137-145) mmol/L Creatinine (0.52-1.04) mg/dL Glucose (74-99) mg/dL POC Glucose (mg/dL) 111 H (70-110) mg/dL AST (14-36) U/L Alkaline Phosphatase (38-126) U/L Total Protein (6.3-8.2) g/dL Albumin (3.5-5.0) g/dL 02/24/24 Range/Units 13:32 RBC (3.80-5.40) m/uL Hgb (11.4-16.0) gm/dL Hct (34.0-46.0) % MCHC (31.0-37.0) g/dL RDW (11.5-15.5) % Plt Count (150-450) k/uL Neutrophils # (1.3-7.7) k/uL Lymphocytes # (1.0-4.8) k/uL PT (10.0-12.5) sec INR (<1.2) APTT 43.6 H (22.0-30.0) sec D-Dimer (<0.60) mg/L FEU ABG pO2 (83-108) mmHg ABG HCO3 (21-25) mmol/L ABG Total CO2 (19-24) mmol/L ABG O2 Saturation (94-97) % Hemoglobin (11.4-16.0) gm/dL Sodium (137-145) mmol/L Creatinine (0.52-1.04) mg/dL Glucose (74-99) mg/dL POC Glucose (mg/dL) (70-110) mg/dL AST (14-36) U/L Alkaline Phosphatase (38-126) U/L Total Protein (6.3-8.2) g/dL Albumin (3.5-5.0) g/dL Assessment and Plan Assessment: Postoperative day #2 status post in situ screw fixation for right femoral neck fracture Open heart surgery 2 weeks ago Hemoglobin of 8.1 on admission to the hospital Multiple medical problems Plan: Plan: 1. Toe-touch weightbearing right lower extremity, mobilize out of bed into a chair as able. 2. 2 doses postoperative antibiotics 3. Defer DVT prophylaxis to medical team. 4. Leave surgical dressing in place, reinforce as needed. 5. Due to the patient's complex medical history including having had recent open heart surgery 2 weeks ago and multiple medical problems we'll transfer care to internal medicine as the primary service. The patient should follow-up in the office in 2 weeks. She is okay to discharge from an orthopedic standpoint when medically able. We will follow peripherally. Prognosis: Guarded.
--- NOTE | 2024-02-24 16:20 | FL ---
Total fluoroscopy time: 2:31 minutes Total submitted images to PACS: 2 DAP: 14.687 mGym2 Gycm2 uGym2 cGycm2 [facility], , 02/24/2024 4:17 PM
--- NOTE | 2024-02-24 17:02 | P.CNNES ---
History of Present Illness Consult date: 02/24/24 Requesting physician: Lisa Hannah Reason for Consult: altered mentation History of Present Illness: This is a 68-year-old woman with history of recent CABG about 2 weeks ago who presented to our facility on 02/21/2024 because of recent fall. Neurology is consulted for altered mental status. History is obtained from medical record as well as the patient ICU nurse It seems the patient had a recent CABG about 2 weeks ago and then she was discharged to rehab and afterwards she was at home and had a recent fall. It appears the patient was at home and tripped in her slippers landing on her right hip. It seems that the patient had right femoral fracture status post fixation postop day 1. Current to the nurse the patient had respiratory failure and it seems the patient had congestive heart failure with cardiomegaly and she was placed on diuretic as a result. Concerned that the patient has a pulmonary embolism as a result she is on heparin drip. Also there is a concern that the patient has may be no close withdrawal since the patient is on [place] for her chronic back pain. Today she is very agitated restless earlier as a result she received antipsychotic. She had she is on restraint. She was on BiPAP earlier. Was also on IV Precedex maxed out. Some of the workup during this hospital visit consisted of: The patient was pO2 of 89% liters Hemoglobin is in the range of 7-8. AST is 56 ALT of 22 Current sodium is 136 Calcium is 8.5, glucose is in the range of 102 150s today. Review of Systems Limited. Past Medical History Past Medical History: Coronary Artery Disease (CAD), Heart Failure, COPD, GERD/Reflux, Hyperlipidemia, Pneumonia, Syncope Additional Past Medical History / Comment(s): Severe mitral regurgitation, moderate to severe tricuspid regurgitation, severe pulmonary hypertension, th ird-degree heart block History of Any Multi-Drug Resistant Organisms: None Reported Past Surgical History: Back Surgery, Section, Heart Catheterization, Pacemaker, Tubal Ligation Additional Past Surgical History / Comment(s): L4-L5 decompression. 02/05/2024 mitral valve replacement (29mm Hannah Mitris resilia), tricuspid valve repair (30 mm Hannah MC3 ring), ligation left atrial appendage (35 mm Atriclip). 02/08 implantation of micra AV device Past Anesthesia/Blood Transfusion Reactions: No Reported Reaction Type of Cardiac Device: Permanent Pacemaker Device Placement Date:: 02/09/24 Past Psychological History: Depression Smoking Status: Former smoker Past Alcohol Use History: None Reported Additional Past Alcohol Use History / Comment(s): < 1 pack per day smoker. Patient smoked for 45 years. No illicit drug use, no alcohol use. Past Drug Use History: Marijuana Additional Drug Use History / Comment(s): Occasional marijuana Gummies - Past Family History Mother Family Medical History: Myocardial Infarction ([place]) Additional Family Medical History / Comment(s): Mother at age 78 from myoca rdial infarction with history of pneumonia, 3 vessel CABG. Father Additional Family Medical History / Comment(s): Patient recently found out that the man who raised her was not her biological father, unknown history of biological father Brother(s) Additional Family Medical History / Comment(s): Patient has 2 brothers and one has known spinal stenosis. Patient has 2 sisters and one has Crohn's and one has Edvin-Vieira. Patient has one daughter with Crohn's disease. Medications and Allergies Home Medications Medication Instructions Recorded Confirmed Type Citalopram Hydrobromide 40 mg PO DAILY 12/26/22 02/22/24 History [Citalopram HBr] Cyanocobalamin (Vitamin B-12) 1,000 mcg PO DAILY 12/26/22 02/22/24 History [Vitamin B-12] Fluticasone/Umeclidin/Vilanter 1 puff INHALATION RT-DAILY 12/26/22 02/22/24 History [Trelegy Ellipta 200-62.5-25] Omeprazole [PriLOSEC] 40 mg PO DAILY 12/26/22 02/22/24 History buPROPion SR [Wellbutrin SR] 150 mg PO BID 12/26/22 02/22/24 History Citalopram Hydrobromide [CeleXA] 20 mg PO DAILY 02/05/23 02/22/24 History Ipratropium-Albuterol Nebulize 3 ml INHALATION RT-QID PRN 02/05/23 02/22/24 History [Duoneb 0.5 mg-3 mg/3 ml Soln] Cholecalciferol (Vitamin D3) 50 mcg PO DAILY 02/01/24 02/22/24 History [Vitamin D3 (50 Mcg = 2000 Iu)] Folic Acid 1 mg PO DAILY 02/01/24 02/22/24 History Ascorbic Acid [Vitamin C] 500 mg PO BID-W/MEALS tab 02/15/24 02/22/24 Rx Aspirin 325 mg PO DAILY tab 02/15/24 02/22/24 Rx Calcium Carbonate [Tums] 1,000 mg PO QID PRN tab 02/15/24 02/22/24 Rx Clopidogrel [Plavix] 75 mg PO DAILY tab 02/15/24 02/22/24 Rx Ferrous Sulfate [Iron (65 MG 325 mg PO BID-W/MEALS tab 02/15/24 02/22/24 Rx Elemental)] Furosemide [Lasix] 40 mg PO DAILY tab 02/15/24 02/22/24 Rx Gabapentin [Neurontin] 100 mg PO TID cap 02/15/24 02/22/24 Rx Losartan [Cozaar] 12.5 mg PO DAILY tab 02/15/24 02/22/24 Rx Pantoprazole [Protonix] 40 mg PO AC-BID tab 02/15/24 02/22/24 Rx Atorvastatin [Lipitor] 40 mg PO HS 02/22/24 02/22/24 History Budesonide [Pulmicort] 1 mg INHALATION RT-BID@0800,1700 02/22/24 02/22/24 History Dextroamphetamine/Amphetamine 10 mg PO BID@0700,1700 02/22/24 02/22/24 History [Adderall] Formoterol Fumarate [Perforomist] 20 mcg INHALATION RT-BID@0800,1700 02/22/24 02/22/24 History HYDROcodone/APAP 10-325MG [[place] 1 tab PO Q8H 02/22/24 02/22/24 History 10-325] Lidocaine Viscous 2% [Xylocaine 10 ml MUCOUS MEM W/SUPPER 02/22/24 02/22/24 History Viscous] Mag Hydrox/Al Hydrox/Simeth 30 ml PO W/SUPPER 02/22/24 02/22/24 History [Maalox] Allergies Allergy/AdvReac Type Severity Reaction Status Date / Time amoxicillin [From Augmentin] AdvReac Nausea & Verified 02/22/24 07:58 Vomiting clavulanic acid AdvReac Nausea & Verified 02/22/24 07:58 [From Augmentin] Vomiting Physical Examination - Vital Signs Vital Signs: Vital Signs Temp Pulse Pulse Pulse Resp BP BP 02/24/24 16:20 92 02/24/24 16:10 90 02/24/24 16:00 98.4 F 89 22 118/69 02/24/24 15:30 91 19 118/69 02/24/24 15:00 92 22 114/67 02/24/24 14:30 92 21 114/67 02/24/24 14:00 92 25 H 119/73 02/24/24 13:30 93 35 H 119/73 02/24/24 13:00 95 25 H 120/88 02/24/24 12:30 90 27 H 02/24/24 12:00 98.1 F 91 20 117/73 02/24/24 11:49 93 19 117/73 02/24/24 11:30 92 21 02/24/24 11:26 02/24/24 11:00 92 24 90/72 02/24/24 10:30 90 16 90/72 02/24/24 10:00 91 24 115/77 02/24/24 09:30 91 20 118/71 02/24/24 09:11 02/24/24 09:00 78 18 121/84 02/24/24 08:30 91 18 119/77 02/24/24 08:00 97.8 F 91 20 113/73 02/24/24 07:35 02/24/24 07:30 91 22 113/74 02/24/24 07:00 91 24 92/61 02/24/24 06:30 90 26 H 113/68 02/24/24 06:00 92 20 105/69 02/24/24 05:30 91 24 94/64 02/24/24 05:00 90 26 H 105/64 02/24/24 04:30 93 30 H 96/71 02/24/24 04:00 92 23 93/65 02/24/24 03:30 89 16 106/92 02/24/24 03:00 95 35 H 134/70 02/24/24 02:30 20 128/69 02/24/24 02:00 94 20 149/85 02/24/24 01:50 99 40 H 157/98 02/24/24 01:42 02/24/24 01:30 88 02/24/24 01:15 95 02/24/24 00:14 02/23/24 21:22 02/23/24 21:18 83 02/23/24 21:12 02/23/24 21:07 100 02/23/24 21:06 100 02/23/24 20:30 30 H Pulse Ox FiO2 02/24/24 16:20 02/24/24 16:10 02/24/24 16:00 100 02/24/24 15:30 100 02/24/24 15:00 100 02/24/24 14:30 100 02/24/24 14:00 100 02/24/24 13:30 02/24/24 13:00 100 02/24/24 12:30 98 02/24/24 12:00 100 02/24/24 11:49 99 02/24/24 11:30 100 02/24/24 11:26 100 02/24/24 11:00 100 02/24/24 10:30 100 02/24/24 10:00 100 02/24/24 09:30 100 02/24/24 09:11 40 02/24/24 09:00 100 02/24/24 08:30 100 02/24/24 08:00 98 02/24/24 07:35 60 02/24/24 07:30 100 02/24/24 07:00 100 02/24/24 06:30 98 02/24/24 06:00 98 02/24/24 05:30 02/24/24 05:00 91 L 02/24/24 04:30 91 L 02/24/24 04:00 96 60 02/24/24 03:30 60 02/24/24 03:00 02/24/24 02:30 02/24/24 02:00 100 02/24/24 01:50 100 60 02/24/24 01:42 97 02/24/24 01:30 60 02/24/24 01:15 02/24/24 00:14 60 02/23/24 21:22 80 02/23/24 21:18 02/23/24 21:12 100 02/23/24 21:07 02/23/24 21:06 02/23/24 20:30 Intake and Output 02/24/24 02/24/24 02/24/24 06:59 14:59 22:59 Intake Total 44.25 339.046 120 Output Total 1280 685 80 Balance -1235.75 -345.954 40 Intake: IV 40 80 20 0.9 KVO 40 80 20 Intake, IV Titration 4.25 259.046 100 Amount Dexmedetomidine/0.9% NaCl 4.25 172.550 100 (Pmx) 400 mcg In Empty Bag 1 bag @ 0.2 MCG/KG/HR 3.4 mls/hr IV .Q24H KAMINI Rx#:[id number] Heparin Sod,Pork in 0.45% 86.496 NaCl 25,000 unit In 0.45 % NaCl 1 250ml.bag @ 12 UNITS/KG/HR 8.16 mls/hr IV .Q24H KAMINI Rx#: [id number] Output: Urine 1280 685 80 Other: Voiding Method Indwelling Catheter Indwelling Catheter General: Lying in bed and does not appear in acute distress. HENT: Supple. Neuro: Limited. Patient is on IV Precedex and received antipsychotic. Severely drowsy minimally open her eyes. She says her face to painful stimuli. Facial weakness from limitation Motor patient has restraints but attempts to withdrawal to painful stimuli. Otherwise rest is limited Results - Laboratory Findings CBC and BMP: 02/24/24 05:55 02/24/24 05:55 Abnormal Lab Findings: Abnormal Labs 02/21/24 02/21/24 02/22/24 20:25 20:25 02:39 RBC 2.56 L Hgb 8.1 L Hct 24.7 L MCHC RDW 18.2 H Plt Count Neutrophils # Lymphocytes # 0.8 L PT INR APTT D-Dimer ABG pO2 ABG HCO3 ABG Total CO2 ABG O2 Saturation Hemoglobin Sodium 136 L Potassium 3.2 L Creatinine Glucose POC Glucose (mg/dL) Calcium 8.3 L AST Alkaline Phosphatase Total Protein 4.9 L Albumin 3.0 L Ur Leukocyte Esterase Small H Urine WBC 7 H Urine Bacteria Rare H Hyaline Casts 4 H Urine Mucus Rare H 02/22/24 02/22/24 02/22/24 06:48 10:33 22:14 RBC 2.43 L Hgb 7.4 L Hct 24.0 L MCHC 30.8 L RDW 17.4 H Plt Count Neutrophils # Lymphocytes # 0.7 L PT INR APTT D-Dimer ABG pO2 ABG HCO3 ABG Total CO2 ABG O2 Saturation Hemoglobin Sodium 133 L Potassium Creatinine Glucose 71 L POC Glucose (mg/dL) 116 H Calcium AST Alkaline Phosphatase Total Protein Albumin Ur Leukocyte Esterase Urine WBC Urine Bacteria Hyaline Casts Urine Mucus 02/23/24 02/23/24 02/23/24 07:29 07:29 11:51 RBC 2.63 L Hgb 8.2 L Hct 26.1 L MCHC RDW 17.9 H Plt Count Neutrophils # Lymphocytes # PT INR APTT D-Dimer ABG pO2 ABG HCO3 ABG Total CO2 ABG O2 Saturation Hemoglobin Sodium 136 L Potassium Creatinine Glucose POC Glucose (mg/dL) 152 H Calcium AST Alkaline Phosphatase Total Protein Albumin Ur Leukocyte Esterase Urine WBC Urine Bacteria Hyaline Casts Urine Mucus 02/23/24 02/23/24 02/24/24 20:21 20:49 01:28 RBC Hgb Hct MCHC RDW Plt Count Neutrophils # Lymphocytes # PT INR APTT D-Dimer ABG pO2 ABG HCO3 ABG Total CO2 ABG O2 Saturation Hemoglobin Sodium Potassium Creatinine Glucose POC Glucose (mg/dL) 131 H 144 H 150 H Calcium AST Alkaline Phosphatase Total Protein Albumin Ur Leukocyte Esterase Urine WBC Urine Bacteria Hyaline Casts Urine Mucus 02/24/24 02/24/24 02/24/24 01:45 02:00 02:00 RBC 2.82 L Hgb 8.5 L Hct 28.1 L MCHC 30.1 L RDW 17.3 H Plt Count 504 H Neutrophils # 8.7 H Lymphocytes # 0.5 L PT INR APTT D-Dimer 4.11 H ABG pO2 ABG HCO3 ABG Total CO2 ABG O2 Saturation Hemoglobin Sodium Potassium Creatinine Glucose POC Glucose (mg/dL) 136 H Calcium AST Alkaline Phosphatase Total Protein Albumin Ur Leukocyte Esterase Urine WBC Urine Bacteria Hyaline Casts Urine Mucus 02/24/24 02/24/24 02/24/24 02:00 05:55 05:55 RBC 2.39 L Hgb 7.3 L Hct 23.7 L MCHC RDW 17.2 H Plt Count Neutrophils # Lymphocytes # 0.5 L PT INR APTT D-Dimer ABG pO2 ABG HCO3 ABG Total CO2 ABG O2 Saturation Hemoglobin Sodium 134 L 136 L Potassium Creatinine 0.51 L Glucose 122 H 100 H POC Glucose (mg/dL) Calcium AST 56 H Alkaline Phosphatase 153 H Total Protein 4.9 L Albumin 3.0 L Ur Leukocyte Esterase Urine WBC Urine Bacteria Hyaline Casts Urine Mucus 02/24/24 02/24/24 02/24/24 05:55 09:05 12:09 RBC Hgb Hct MCHC RDW Plt Count Neutrophils # Lymphocytes # PT 13.3 H INR 1.3 H APTT 84.7 H D-Dimer ABG pO2 254 H ABG HCO3 28 H ABG Total CO2 29 H ABG O2 Saturation 100.0 H Hemoglobin 7.2 L Sodium Potassium Creatinine Glucose POC Glucose (mg/dL) 111 H Calcium AST Alkaline Phosphatase Total Protein Albumin Ur Leukocyte Esterase Urine WBC Urine Bacteria Hyaline Casts Urine Mucus 02/24/24 13:32 RBC Hgb Hct MCHC RDW Plt Count Neutrophils # Lymphocytes # PT INR APTT 43.6 H D-Dimer ABG pO2 ABG HCO3 ABG Total CO2 ABG O2 Saturation Hemoglobin Sodium Potassium Creatinine Glucose POC Glucose (mg/dL) Calcium AST Alkaline Phosphatase Total Protein Albumin Ur Leukocyte Esterase Urine WBC Urine Bacteria Hyaline Casts Urine Mucus Assessment and Plan Assessment: This is a 68-year-old woman with a recent CABG about 2 weeks ago who was discharged to rehab facility and then from there she was discharged home and had a recent fall in which she seems she is tripped in her slipper landing on her right hip. She was found to have right femoral fracture status post fixation postop day 1. Patient has underlying history of chronic lower back pain and she is on [place] and there is suspicion that there is possible withdrawal from the pain medication and today she is restless agitated. It seems that the patient is having respiratory distress and there is a concern that she has heart failure and she received IV Lasix. There is also suspicion to rule out pulmonary embolism and currently she is on IV heparin drip. Patient received antipsychotic and she is on IV Precedex. Altered mental status seems multifactorial due to metabolic and hypoxic encephalopathy, hospital induced encephalopathy and questionable withdrawal from opiates Acute hypoxic respiratory failure on BiPAP and chest x-ray showing component of congestive heart related with cardiomegaly. Recent fall result the patient has right femoral fracture status post fixation postop day 1. Recent CABG Chronic back pain the patient is dependent on [place] on outpatient basis Anemia History of severe mitral regurgitation as well as moderate to severe tricuspid regurgitation status post mitral valve replacement as well as tricuspid valve repair on 02/05/2024 Severe pulmonary hypertension Chronic heart failure Third-degree heart block COPD on home oxygen Previous tobacco use Chronic narcotic dependence Occasional marijuana use Plan: I ordered a CT of the head. Please obtain once the patient is stable I ordered a routine EEG I ordered ammonia level, TSH, vitamin B12 folate level Please avoid opiates/sedation if possible Will defer the rest of the medical management to primary and other specialist The plan discussed with the patient's ICU nurse. Thank your for the consultation. Time with Patient: Greater than 30
--- NOTE | 2024-02-24 18:17 | CT ---
EXAMINATION TYPE: CT brain wo con CT DLP: 1644.8 mGycm, Automated exposure control for dose reduction was used. DATE OF EXAM: 02/24/2024 6:06 PM COMPARISON: 02/25/2023. CLINICAL INDICATION: Female, 68 years old with history of altered mental status, AMS. TECHNIQUE: Brain: Axial CT images of the brain were obtained with coronal and sagittal reformats created and rev iewed. Contrast used: None. Oral contrast used: None. FINDINGS: Motion limited exam. Brain: Extra-axial spaces: No abnormal extra-axial fluid collections. Ventricular system: Within normal limits Cerebral parenchyma: No acute intraparenchymal hemorrhage or mass effect. The tejeda-white junction is well differentiated. Cerebellum: Unremarkable. Mass effect: No evidence of midline shift. Intracranial vasculature: unremarkable Soft tissues: Normal. Calvarium/osseous structures: No depressed skull fracture. Paranasal sinuses and mastoid air cells: Mild scattered paranasal sinus disease. Visualized orbits: Orbital contents are intact. IMPRESSION: Motion limited exam. No acute intracranial process. [facility], , 02/24/2024 6:14 PM
[2024-02-24 18:27] LABS: Glucose,Whole Blood 95 mg/dL (70-110)
[2024-02-24] MEDS: BUDESONIDE 1 MG/2 ML NEBU INHALATION SCH (19:19)
[2024-02-24] MEDS: FORMOTEROL FUMARATE 20 MCG/2 ML NEBU INHALATION SCH (19:19)
[2024-02-24] MEDS ORDERED: OLANZapine 10 MG VIAL IM PRN (19:24)
[2024-02-24 20:26] LABS: Anisocytosis Slight; Basophils % (A) 0 %; Eosinophils % (A) 0 %; HCT 23.8 % (34.0-46.0); HGB 7.4 gm/dL (11.4-16.0); Hypochromasia Marked; Lymphocytes # (A) 0.6 k/uL (1.0-4.8); Lymphocytes % (A) 13 %; MCH 30.6 pg (25.0-35.0); MCHC 30.9 g/dL (31.0-37.0); MCV 98.9 fL (80.0-100.0); Macrocytosis Slight; Mean Platelet Volume 7.9; Monocytes # (A) 0.3 k/uL (0-1.0); Monocytes % (A) 6 %; Neutrophils # (A) 3.6 k/uL (1.3-7.7); Neutrophils % (A) 78 %; Platelet Count 320 k/uL (150-450); RDW 17.5 % (11.5-15.5); WBC 4.6 k/uL (3.8-10.6)
[2024-02-25 00:03] LABS: Glucose,Whole Blood 104 mg/dL (70-110)
[2024-02-25 04:40] LABS: Vitamin B12 >3600.0 pg/mL (200.0-944.0)
[2024-02-25 05:59] LABS: Glucose,Whole Blood 96 mg/dL (70-110)
[2024-02-25 06:35] LABS: Anisocytosis Slight; HCT 24.4 % (34.0-46.0); HGB 7.5 gm/dL (11.4-16.0); Hypochromasia Marked; MCHC 30.9 g/dL (31.0-37.0); MCV 100.3 fL (80.0-100.0); Macrocytosis Moderate; Mean Platelet Volume 7.9; Platelet Count 305 k/uL (150-450); RBC 2.43 m/uL (3.80-5.40); RDW 17.5 % (11.5-15.5); WBC 4.3 k/uL (3.8-10.6)
[2024-02-25 07:01] LABS: African American GFR (CKD) >90 (>60 ml/min/1.73 sqM); Anion Gap 2 mmol/L; Blood Urea Nitrogen 13 mg/dL (7-17); Calcium 8.6 mg/dL (8.4-10.2); Carbon Dioxide 32 mmol/L (22-30); Chloride 104 mmol/L (98-107); Glucose 83 mg/dL (74-99); Non-African American GFR(CKD) >90 (>60 ml/min/1.73 sqM); Potassium 3.8 mmol/L (3.5-5.1); Sodium 138 mmol/L (137-145)
--- NOTE | 2024-02-25 07:52 | P.PN ---
Subjective Progress Note Date: 02/25/24 PROGRESS NOTE The patient is a 68-year-old female status post mitral valve replacement with tricuspid valve repair and closure of the left atrial appendage performed on February 04 for symptomatic progressive MR who was readmitted to the hospital after a fall and a fractured hip. Last night she became more dyspneic, agitated, requiring BiPAP and transferred to the ICU. She is sedated on BiPAP, in sinus mechanism. She has underwent surgical intervention for her hip. She had no episodes of hypotension or malignant arrhythmia postprocedure. Her daughter is present today and apparently the patient had issues with narcotic abuse in the past and she is concerned about her receiving narcotics. Preo peratively her low ventricle systolic function was normal and there was no evidence of obstructive CAD. Her D-dimer were elevated and there was a question of pulmonary embolism for which she was started on IV heparin February 24: The patient is sedated, she was agitated earlier. She is off IV heparin. Hemodynamically she is stable. There is no evidence of malignant arrhythmia. She is undergoing an EEG. Her urinary output has been stable. There is no episodes of hypotension. Medications: Aspirin, Lipitor 40 mg daily, citalopram, Plavix 75 mg daily, furosemide 20 mg IV twice daily, losartan 12.5 mg daily IV Precedex PHYSICAL EXAMINATION: Blood pressure 124/90 heart rate 90, sedated LUNGS: Clear to auscultation anteriorly HEART: Regular rate and rhythm, S1, S2. No S3. Systolic ejection murmur ABDOMEN: Soft, nontender, no organomegaly EXTREMETIES: No edema LAB: Hemoglobin 7.5, WBC 4.3, potassium 3.8, BUN 13, creatinine 0.55 IMPRESSION: 1. Respiratory failure, stable probably related to narcotics 2. Status post mitral valve replacement and tricuspid valve repair 3. Status post pacemaker implantation 4. History of chronic pain and narcotic use PLAN: 1. Obtain an echocardiogram with Doppler 2. Continue IV diuretics for 24 hours 3. Follow renal functions 4. Await further neurological evaluation Objective - Vital Signs Vital signs: Vital Signs Temp 98.2 F 02/25/24 04:00 Pulse 93 02/25/24 07:00 Resp 18 02/25/24 07:00 BP 124/91 02/25/24 07:00 Pulse Ox 95 02/25/24 07:00 FiO2 40 02/24/24 09:11 Intake & Output 02/24/24 02/25/24 02/25/24 18:59 06:59 18:59 Intake Total 571.822 9597.713 22.752 Output Total 835 720 Balance -345.954 558.713 22.752 Weight 61 kg Intake: IV 130 900 0.9 KVO 130 Sodium Chloride 0.9% 1, 900 000 ml @ 75 mls/hr IV . [id number] KAMINI Rx#:[id number] Intake, IV Titration 359.046 378.713 22.752 Amount Dexmedetomidine/0.9% NaCl 272.550 326.512 22.752 (Pmx) 400 mcg In Empty Bag 1 bag @ 0.2 MCG/KG/HR 3.4 mls/hr IV .Q24H KAMINI Rx#:[id number] Heparin Sod,Pork in 0.45% 86.496 52.201 NaCl 25,000 unit In 0.45 % NaCl 1 250ml.bag @ 12 UNITS/KG/HR 8.16 mls/hr IV .Q24H KAMINI Rx#: [id number] Output: Urine 835 720 Other: Voiding Method Indwelling Catheter Indwelling Catheter - Labs CBC & Chem 7: 02/25/24 06:14 02/25/24 06:14 Labs: Abnormal Lab Results - Last 24 Hours (Table) 02/24/24 02/24/24 02/24/24 Range/Units 09:05 12:09 13:32 RBC (3.80-5.40) m/uL Hgb (11.4-16.0) gm/dL Hct (34.0-46.0) % MCV (80.0-100.0) fL MCHC (31.0-37.0) g/dL RDW (11.5-15.5) % Lymphocytes # (1.0-4.8) k/uL APTT 43.6 H (22.0-30.0) sec ABG pO2 254 H (83-108) mmHg ABG HCO3 28 H (21-25) mmol/L ABG Total CO2 29 H (19-24) mmol/L ABG O2 Saturation 100.0 H (94-97) % Hemoglobin 7.2 L (11.4-16.0) gm/dL Carbon Dioxide (22-30) mmol/L POC Glucose (mg/dL) 111 H (70-110) mg/dL Vitamin B12 (200.0-944.0) pg/mL 02/24/24 02/24/24 02/25/24 Range/Units 17:14 19:39 06:14 RBC 2.40 L (3.80-5.40) m/uL Hgb 7.4 L (11.4-16.0) gm/dL Hct 23.8 L (34.0-46.0) % MCV (80.0-100.0) fL MCHC 30.9 L (31.0-37.0) g/dL RDW 17.5 H (11.5-15.5) % Lymphocytes # 0.6 L (1.0-4.8) k/uL APTT (22.0-30.0) sec ABG pO2 (83-108) mmHg ABG HCO3 (21-25) mmol/L ABG Total CO2 (19-24) mmol/L ABG O2 Saturation (94-97) % Hemoglobin (11.4-16.0) gm/dL Carbon Dioxide 32 H (22-30) mmol/L POC Glucose (mg/dL) (70-110) mg/dL Vitamin B12 >3600.0 H (200.0-944.0) pg/mL 02/25/24 Range/Units 06:14 RBC 2.43 L (3.80-5.40) m/uL Hgb 7.5 L (11.4-16.0) gm/dL Hct 24.4 L (34.0-46.0) % MCV 100.3 H (80.0-100.0) fL MCHC 30.9 L (31.0-37.0) g/dL RDW 17.5 H (11.5-15.5) % Lymphocytes # (1.0-4.8) k/uL APTT (22.0-30.0) sec ABG pO2 (83-108) mmHg ABG HCO3 (21-25) mmol/L ABG Total CO2 (19-24) mmol/L ABG O2 Saturation (94-97) % Hemoglobin (11.4-16.0) gm/dL Carbon Dioxide (22-30) mmol/L POC Glucose (mg/dL) (70-110) mg/dL Vitamin B12 (200.0-944.0) pg/mL
[2024-02-25] MEDS: ENOXAPARIN 40 MG/0.4 ML SYRINGE SQ SCH (10:11)
[2024-02-25] MEDS: FUROSEMIDE 40 MG TAB PO SCH (10:12)
--- NOTE | 2024-02-25 10:24 | P.PN ---
Subjective Progress Note Date: 02/25/24 Principal diagnosis: Fall from standing with nondiscplaced right femoral neck fracture, anemia. History of severe mitral regurgitation, moderate to severe tricuspid regurgitation status post mitral valve replacement and tricuspid valve repair 02/05/24, severe pulmonary hypertension, chronic heart failure with preserved left ventricular systolic function, third-degree heart block status post Micra AV device 02/08/24, mild CAD, hyperlipidemia, COPD on home oxygen at night and PRN, recent pneumonia, GERD/suspected stress gastritis, previous tobacco dependence with recent cessation, occasional marijuana use, chronic narcotic dependence, and family history of coronary artery disease with mother from myocardial infarction in her 70s POD#2 in situ screw fixation right femoral neck fracture by Dr. Mendoza Acute hypoxic respiratory failure requiring BiPAP Altered mental status, likely multifactorial secondary to sedatives, narcotics, hypoxia The patient was seen and examined laying in bed in the intensive care unit. She is a bit restless, states that she is short of breath, has a course cough. Currently on nasal cannula at 3 L/min with oxygen saturation in the mid to high 90s. Remains in sinus rhythm, hemodynamically stable. IV diuresis changed to oral diuresis. Initially there was questionable evidence of pulmonary embolism due to elevated D-dimer and respiratory distress, however D-dimer felt to be elevated due to recent surgeries, heparin discontinued. Echocardiogram completed. Neurology was consulted yesterday, patient had EEG and CT of the brain, await recommendations. Patient currently being weaned from Precedex. Sitter at bedside for patient's safety. Objective - Vital Signs Vital signs: Vital Signs Temp 97.9 F 02/25/24 08:00 Pulse 92 02/25/24 10:00 Resp 34 H 02/25/24 10:00 BP 118/68 02/25/24 10:00 Pulse Ox 97 02/25/24 10:00 FiO2 40 02/24/24 09:11 Intake & Output 02/24/24 02/25/24 02/25/24 18:59 06:59 18:59 Intake Total 842.228 2541.713 152.827 Output Total 835 720 50 Balance -345.954 558.713 102.827 Weight 61 kg Intake: IV 130 900 105 0.9 KVO 130 Sodium Chloride 0.9% 1, 900 105 000 ml @ 10 mls/hr IV . Q24H [facility] Rx#:[id number] Intake, IV Titration 359.046 378.713 47.827 Amount Dexmedetomidine/0.9% NaCl 272.550 326.512 47.827 (Pmx) 400 mcg In Empty Bag 1 bag @ 0.2 MCG/KG/HR 3.4 mls/hr IV .Q24H [facility] Rx#:[id number] Heparin Sod,Pork in 0.45% 86.496 52.201 NaCl 25,000 unit In 0.45 % NaCl 1 250ml.bag @ 12 UNITS/KG/HR 8.16 mls/hr IV .Q24H [facility] Rx#: [id number] Output: Urine 835 720 50 Other: Voiding Method Indwelling Catheter Indwelling Catheter - Exam CONSTITUTIONAL: Appears somewhat comfortable although a bit restless, victor m ative RESPIRATORY: Lungs sounds coarse bilaterally. Respirations even but tachypneic. Currently on 3 L nasal cannula with oxygen saturation in the mid to high 90s CARDIOVASCULAR: S1, S2 present. Regular rate and rhythm, sinus rhythm on telemetry. Sternum stable. Palpable peripheral pulses bilaterally. Heart hugger in place GASTROINTESTINAL: Abdomen soft, nontender, nondistended. Active bowel sounds present 4 quadrants GENITOURINARY: [place] present draining clear, yellow urine. Output 30-50 mL/h overnight which dwindled down to 15 mL/h in the last couple of hours, 1555 mL in the last 24 hours INTEGUMENTARY: Skin is warm and dry. Anterior chest incision well approximated. Right hip dressing intact NEUROLOGIC: Cranial nerves II through XII intact MUSKULOSKELETAL: Able to move all extremities, strength equal bilaterally PSYCHIATRIC: Alert and oriented to person place and time - Allied health notes Allied health notes reviewed: nursing - Labs CBC & Chem 7: 02/25/24 06:14 02/25/24 06:14 Labs: Abnormal Lab Results - Last 24 Hours (Table) 02/24/24 02/24/24 02/24/24 Range/Units 12:09 13:32 17:14 RBC (3.80-5.40) m/uL Hgb (11.4-16.0) gm/dL Hct (34.0-46.0) % MCV (80.0-100.0) fL MCHC (31.0-37.0) g/dL RDW (11.5-15.5) % Lymphocytes # (1.0-4.8) k/uL APTT 43.6 H (22.0-30.0) sec Carbon Dioxide (22-30) mmol/L POC Glucose (mg/dL) 111 H (70-110) mg/dL Vitamin B12 >3600.0 H (200.0-944.0) pg/mL 02/24/24 02/25/24 02/25/24 Range/Units 19:39 06:14 06:14 RBC 2.40 L 2.43 L (3.80-5.40) m/uL Hgb 7.4 L 7.5 L (11.4-16.0) gm/dL Hct 23.8 L 24.4 L (34.0-46.0) % MCV 100.3 H (80.0-100.0) fL MCHC 30.9 L 30.9 L (31.0-37.0) g/dL RDW 17.5 H 17.5 H (11.5-15.5) % Lymphocytes # 0.6 L (1.0-4.8) k/uL APTT (22.0-30.0) sec Carbon Dioxide 32 H (22-30) mmol/L POC Glucose (mg/dL) (70-110) mg/dL Vitamin B12 (200.0-944.0) pg/mL - Imaging and Cardiology Chest x-ray: image reviewed Assessment and Plan Assessment: Fall from standing, status post right femoral neck fracture, status post in situ screw fixation right femoral neck fracture by Dr. Mendoza Pain secondary to above Anemia, expected as part of recovery after open heart surgery Acute hypoxic respiratory failure requiring BiPAP Altered mental status, likely multifactorial secondary to sedatives, narcotics, hypoxia History of severe mitral regurgitation, moderate to severe tricuspid regurgitation per ENRIQUE, status post mitral valve replacement, tricuspid valve repair 02/05/24 Severe pulmonary hypertension Chronic heart failure with preserved left ventricular systolic function, EF 55- 60% Third-degree heart block, status post Micra AV device 02/08/24 Mild CAD Hyperlipidemia, treated COPD on home oxygen at night and PRN Recent pneumonia GERD, suspected stress gastritis Previous tobacco dependence, quit > 1 month ago, [id number] history Occasional marijuana use Chronic narcotic dependence Family history of coronary artery disease with mother from myocardial infarction in her 70s Plan: Continue current medication therapy Wean O2 as tolerated, encourage incentive spirometry use Increase activity as tolerated, PT/OT consulted, toe-touch on the right leg only per orthopedics Sternal precautions GI/DVT prophylaxis Discharge planning per Dr. Mujica Will continue to monitor while hospitalized although will not write notes daily as her current management is through internal medicine, pulmonology, cardiology
--- NOTE | 2024-02-25 10:25 | CA ---
Transthoracic Echo Report Name: Rosmery Vazquez Age: 68 Gender: F : 1955 Exam Date: 02/24/2024 15:06 Exam Location: [facility] Ht (in): 60 Wt (lb): 149 Ordering Physician: Cee Ordaz MD ([id number]) Attending/Referring Phys: Home Office Claims Examiner Chica Purvis RDCS Procedure CPT: Indications: MVR Cardiac Hx: Technical Quality: Fair Contrast 1: Total Dose (mL): Contrast 2: Total Dose (mL): MEASUREMENTS (Male / Female) Normal Values 2D ECHO LVOT Diameter 2.1 cm LV Diastolic Volume MOD BP 122.4 cm??? 67 - 155 / 56 - 104 cm??? LV Systolic Volume MOD BP 74.4 cm??? 22 - 58 / 19 - 49 cm??? LV Ejection Fraction MOD BP 39.2 % >= 55 % LV Cardiac Index MOD BP 2571.1 cm???/min???m??? LV Diastolic Volume MOD 4C 95.8 cm??? LV Systolic Volume MOD 4C 56.2 cm??? LV Ejection Fraction MOD 4C 41.3 % LV Cardiac Index MOD 4C 2124.1 cm???/min???m??? LV Diastolic Length 4C 8.5 cm LV Systolic Length 4C 7.7 cm LV Diastolic Volume MOD 2C 140.3 cm??? LV Systolic Volume MOD 2C 90.1 cm??? LV Ejection Fraction MOD 2C 35.8 % LV Cardiac Index MOD 2C 2691.7 cm???/min???m??? LV Diastolic Length 2C 9.6 cm LV Systolic Length 2C 8.5 cm LA Volume 46.8 cm??? 18 - 58 / 22 - 52 cm??? LA Volume Index 27.3 cm???/m??? 16 - 28 cm???/m??? Ascending Aorta Diameter 3.0 cm DOPPLER AV Peak Velocity 149.3 cm/s AV Peak Gradient 8.9 mmHg AV Mean Velocity 94.0 cm/s AV Mean Gradient 4.2 mmHg AV Velocity Time Integral 21.9 cm AI Peak Velocity 370.4 cm/s AI Peak Gradient 54.9 mmHg AI Pressure Half Time 240.3 ms LVOT Peak Velocity 123.5 cm/s LVOT Peak Gradient 6.1 mmHg LVOT Velocity Time Integral 19.6 cm LVOT Stroke Volume 68.3 cm??? LVOT Stroke Volume Index 41.5 ml/m??? LVOT Cardiac Index 3664.2 cm???/min???m??? AV Area Cont Eq vti 3.1 cm??? AV Area Cont Eq pk 2.9 cm??? MV Peak Velocity 139.1 cm/s MV Peak Gradient 7.7 mmHg MV Mean Velocity 79.2 cm/s MV Mean Gradient 3.1 mmHg MV Velocity Time Integral 26.7 cm TR Peak Velocity 284.6 cm/s TR Peak Gradient 32.4 mmHg Right Atrial Pressure 5.0 mmHg Pulmonary Artery Systolic Pressu 37.4 mmHg Right Ventricular Systolic Press 37.4 mmHg FINDINGS Left Ventricle Left ventricular ejection fraction is estimated at 35-40 %. Moderately increased left ventricular diastolic volume. Severely increased left ventricular systolic volume. Moderately decreased left ventricular ejection fraction. Right Ventricle Normal right ventricular size with mild to moderately reduced function. Mild pulmonary hypertension. Right Atrium Normal right atrial size. Left Atrium Normal left atrial size. Mitral Valve Mitral valve replacement. Mean gradient 3mmHg. Trace mitral regurgitation. Aortic Valve Aortic valve not well visualized. No aortic stenosis. Moderate to severe aortic regurgitation. Eccentric aortic regurgitation. Tricuspid Valve Tricuspid valve repair. Mild tricuspid regurgitation. Pulmonic Valve Pulmonic valve not well visualized. Pericardium No pericardial effusion. Left pleural effusion. Aorta Normal size aortic root and proximal ascending aorta. CONCLUSIONS Diagnosis mitral valve replacement Dilated LV with moderate to severe LV dysfunction Mitral replacement, stable with a mean gradient of 3 mmHg normal function Moderate to severe aortic regurgitation Previewed by: Dr. Javan Mead MD (Electronically Signed) Final Date: 25 February 2024 10:24
[2024-02-25 11:35] LABS: Glucose,Whole Blood 83 mg/dL (70-110)
--- NOTE | 2024-02-25 12:34 | XR ---
EXAMINATION TYPE: XR chest 1V portable DATE OF EXAM: 02/25/2024 COMPARISON: 02/24/2024 INDICATION: Cardiac surgery TECHNIQUE: Single frontal view of the chest is obtained. FINDINGS: The heart size is large. The pulmonary vasculature is prominent. Mild diffuse increased lung markings are present which are nonspecific. Correlate for atelectasis ove rload. Small right pleural effusion is present. IMPRESSION: 1. Small right pleural effusion. 2. Mild alveolar infiltrate may be some pulmonary edema. [facility], , 02/25/2024 12:32 PM
--- NOTE | 2024-02-25 13:18 | P.PN ---
Subjective Progress Note Date: 02/25/24 I am following-up with patient and per her nurse, patient is doing drastically better. She states patient is more responsive and less agitated/restless today. Her IV Precedex is being weaned down. Objective - Vital Signs Vital signs: Vital Signs Temp 98.5 F 02/25/24 12:00 Pulse 93 02/25/24 12:00 Resp 23 02/25/24 12:00 BP 109/61 02/25/24 12:00 Pulse Ox 99 02/25/24 12:00 FiO2 40 02/24/24 09:11 Intake & Output 02/24/24 02/25/24 02/25/24 18:59 06:59 18:59 Intake Total 117.711 4716.713 720.194 Output Total 835 720 150 Balance -345.954 558.713 570.194 Weight 61 kg Intake: IV 130 900 125 0.9 KVO 130 Sodium Chloride 0.9% 1, 900 125 000 ml @ 10 mls/hr IV . Q24H [facility] Rx#:[id number] Intake, IV Titration 359.046 378.713 55.194 Amount Dexmedetomidine/0.9% NaCl 272.550 326.512 55.194 (Pmx) 400 mcg In Empty Bag 1 bag @ 0.2 MCG/KG/HR 3.4 mls/hr IV .Q24H [facility] Rx#:[id number] Heparin Sod,Pork in 0.45% 86.496 52.201 NaCl 25,000 unit In 0.45 % NaCl 1 250ml.bag @ 12 UNITS/KG/HR 8.16 mls/hr IV .Q24H [facility] Rx#: [id number] Oral 540 Output: Urine 835 720 150 Other: Voiding Method Indwelling Catheter Indwelling Catheter Indwelling Catheter - Exam General: Lying in bed and is not in acute distress. Neuro: Patient is mildly drowsy, but is awakeable to voice. Is oriented to self, place and time. Is following simple commands. Has hypophonia. No aphasia. Pupils are round, equal and reactive to light. No facial weakness. No dysathria. Motor: Lifting bilateral uppers above gravity equally. RIght lower is limited because of pain. Left lower is lifting above gravity. Some of the workup during this hospital visit consisted of: Ammonia is 23 Vitamin B12: >3600 Serum folate: 22.5 TSH: 3.03 CT head: Motion limited exam. No acute intracranial process. - Labs CBC & Chem 7: 02/25/24 06:14 02/25/24 06:14 Labs: Abnormal Lab Results - Last 24 Hours (Table) 02/24/24 02/24/24 02/24/24 Range/Units 13:32 17:14 19:39 RBC 2.40 L (3.80-5.40) m/uL Hgb 7.4 L (11.4-16.0) gm/dL Hct 23.8 L (34.0-46.0) % MCV (80.0-100.0) fL MCHC 30.9 L (31.0-37.0) g/dL RDW 17.5 H (11.5-15.5) % Lymphocytes # 0.6 L (1.0-4.8) k/uL APTT 43.6 H (22.0-30.0) sec Carbon Dioxide (22-30) mmol/L Vitamin B12 >3600.0 H (200.0-944.0) pg/mL 02/25/24 02/25/24 Range/Units 06:14 06:14 RBC 2.43 L (3.80-5.40) m/uL Hgb 7.5 L (11.4-16.0) gm/dL Hct 24.4 L (34.0-46.0) % MCV 100.3 H (80.0-100.0) fL MCHC 30.9 L (31.0-37.0) g/dL RDW 17.5 H (11.5-15.5) % Lymphocytes # (1.0-4.8) k/uL APTT (22.0-30.0) sec Carbon Dioxide 32 H (22-30) mmol/L Vitamin B12 (200.0-944.0) pg/mL Assessment and Plan Assessment: This is a 68-year-old woman with a recent CABG about 2 weeks ago who was discharged to rehab facility and then from there she was discharged home and had a recent fall in which she seems she is tripped in her slipper landing on her right hip. She was found to have right femoral fracture status post fixation postop day 1. Patient has underlying history of chronic lower back pain and she is on [place] and there is suspicion that there is possible withdrawal from the pain medication and today she is restless agitated. It seems that the patient is having respiratory distress and there is a concern that she has heart failure and she received IV Lasix. There is also suspicion to rule out pulmonary embolism and currently she is on IV heparin drip. Patient received antipsychotic and she is on IV Precedex. Altered mental status seems multifactorial due to metabolic and hypoxic en cephalopathy, hospital induced encephalopathy and questionable withdrawal from opiates---today mentation is drastically better and is oriented X3. Acute hypoxic respiratory failure on BiPAP and chest x-ray showing component of congestive heart related with cardiomegaly. Recent fall result the patient has right femoral fracture status post fixation postop day 1. Recent CABG Chronic back pain the patient is dependent on [place]bury on outpatient basis Anemia History of severe mitral regurgitation as well as moderate to severe tricuspid regurgitation status post mitral valve replacement as well as tricuspid valve repair on 02/05/2024 Severe pulmonary hypertension Chronic heart failure Third-degree heart block COPD on home oxygen Previous tobacco use Chronic narcotic dependence Occasional marijuana use Plan: Pending routine EEG Please avoid opiates/sedation if possible Will defer the rest of the medical management to primary and other specialist The plan discussed with the patient's ICU nurse. Time with Patient: Less than 30
--- NOTE | 2024-02-25 14:21 | P.PN ---
Subjective Progress Note Date: 02/25/24 This is a 68-year-old female patient who became acutely short of breath. The patient was on 2 L of oxygen by nasal cannula. She became restless, agitated, and thrashing and at the same time she was noted to have labored breathing. At that point, the patient got transferred to the intensive care unit. Chest x-ray was consistent with CHF and the patient was given Lasix with some urine output. She remained in a normal sinus rhythm. She did not require any pressors. Overnight, the patient continued to have increased agitation and restlessness and narcotic withdrawal was suspected. The patient was given Dilaudid. The patient was also placed on Precedex and this morning the patient is on Precedex which is running at 1.4 mcg/kg/min. She seems to be much more calm and comfortable. She is still arousable upon stimulation. While on the BiPAP therapy, the patient has been maintained on a pressure of 14/6 with an FiO2 of 60%. Unable to obtain an adequate pulse ox. Based on that, blood gas was done and the patient was found to have a pH of 7.43 with a pCO2 of 42 and pO2 of 254 on above-mentioned BiPAP settings. Repeat chest x-ray from today is essentially unchanged and is consistent with cardiomegaly and mild pulm vas congestion. The patient remains on IV Lasix. I was concerned of a pulmonary embolism as the patient underwent a recent hip surgery for a hip fracture. I started the patient IV heparin pending further workup. The white cell count is at 5.6 with a hemoglobin 7.8 platelet count of 336. BUN is 12 with a creatinine of 0.55 resolved levels at 136. Noted the patient is status post mitral valve replacement and stress His valve repair that was done on 02/05/2024. She has CHF with preserved LV function and severe pulmonary hypertension. Postop, the patient encountered the third-degree AV block and the patient required a Micra AV device that was inserted on 02/08/2024. She has mild coronary artery disease. She has hyperlipidemia and COPD and she is on home O2. She also has history of acid reflux and gastritis. During this current admission, the patient had a nondisplaced right fibular fracture due to a fall and the patient underwent a ORIF of the right femoral neck fracture and the patient is currently postop day #1. Surgical wound site is dry clean and intact. No focal neurological deficit. Daughter is at the bedside. 02/25/2024, the patient is doing much better compared to yesterday. The patient is on Precedex which is running at 0.5 mcg/kg/min this being gradually weaned off. No significant agitation. She is awake and alert and communicating. No focal neurological deficits. CAT scan of the brain was done yesterday and showed no acute abnormalities. The patient was also taken off the BiPAP and the patient is currently on oxygen and 3 L with a pulse ox of 99 to 100%. Chest x- ray showed some mild pulmonary vascular congestion. Otherwise, no other acute abnormalities has been noted. Small right-sided pleural effusion was also noted. The patient's hemodynamics is stable. White cell count is 4.3, he was 7.5 with a platelet count of 305. BUN is 13 with a creatinine of 0.55 and a sodium levels at 138 with a potassium level of 3.8. Cardiac rhythm is sinus. No other significant events overnight. IV fluids are running at a rate of 75 cc an hour. The patient also is on IV Lasix. Objective - Vital Signs Vital signs: Vital Signs Temp 98.2 F 02/25/24 04:00 Pulse 93 02/25/24 07:00 Resp 18 02/25/24 07:00 BP 124/91 02/25/24 07:00 Pulse Ox 95 02/25/24 07:00 FiO2 40 02/24/24 09:11 Intake & Output 02/24/24 02/25/24 02/25/24 18:59 06:59 18:59 Intake Total 106.498 5605.713 30.515 Output Total 835 720 Balance -345.954 558.713 30.515 Weight 61 kg Intake: IV 130 900 0.9 KVO 130 Sodium Chloride 0.9% 1, 900 000 ml @ 75 mls/hr IV . [id number] [facility] Rx#:[id number] Intake, IV Titration 359.046 378.713 30.515 Amount Dexmedetomidine/0.9% NaCl 272.550 326.512 30.515 (Pmx) 400 mcg In Empty Bag 1 bag @ 0.2 MCG/KG/HR 3.4 mls/hr IV .Q24H [facility] Rx#:[id number] Heparin Sod,Pork in 0.45% 86.496 52.201 NaCl 25,000 unit In 0.45 % NaCl 1 250ml.bag @ 12 UNITS/KG/HR 8.16 mls/hr IV .Q24H [facility] Rx#: [id number] Output: Urine 835 720 Other: Voiding Method Indwelling Catheter Indwelling Catheter - Exam General Appearance, the patient is currently on Precedex and she is calm and comfortable on 3 days of oxygen by nasal cannula Head exam was generally normal. There was no scleral icterus or corneal arcus. Mucous membranes were moist. Neck was supple and without jugular venous distension, thyromegaly, or carotid bruits. Carotids were easily palpable bilaterally. There was no adenopathy. Lung sounds are diminished bilaterally and the patient has limited crackles lung base bilaterally. No wheezes. Cardiac exam revealed the PMI to be normally situated and sized. The rhythm was regular and no extrasystoles were noted during several minutes of auscultation. The first and second heart sounds were normal and physiologic splitting of the second heart sound was noted. There were no murmurs, rubs, clicks, or gallops. The patient has a thoracotomy scar which is dry clean and intact. Abdominal exam revealed normal bowel sounds. The abdomen was soft, non-tender, and without masses, organomegaly, or appreciable enlargement of the abdominal aorta. Examination of the extremities revealed easily palpable radial, femoral and pedal pulses. There was no cyanosis, clubbing or edema. Examination of the skin revealed no evidence of significant rashes, suspicious appearing nevi or other concerning lesions. Neurologically, alert and oriented x 3 without any focal neurological deficits - Labs CBC & Chem 7: 02/25/24 06:14 02/25/24 06:14 Labs: Abnormal Lab Results - Last 24 Hours (Table) 02/24/24 02/24/24 02/24/24 Range/Units 09:05 12:09 13:32 RBC (3.80-5.40) m/uL Hgb (11.4-16.0) gm/dL Hct (34.0-46.0) % MCV (80.0-100.0) fL MCHC (31.0-37.0) g/dL RDW (11.5-15.5) % Lymphocytes # (1.0-4.8) k/uL APTT 43.6 H (22.0-30.0) sec ABG pO2 254 H (83-108) mmHg ABG HCO3 28 H (21-25) mmol/L ABG Total CO2 29 H (19-24) mmol/L ABG O2 Saturation 100.0 H (94-97) % Hemoglobin 7.2 L (11.4-16.0) gm/dL Carbon Dioxide (22-30) mmol/L POC Glucose (mg/dL) 111 H (70-110) mg/dL Vitamin B12 (200.0-944.0) pg/mL 02/24/24 02/24/24 02/25/24 Range/Units 17:14 19:39 06:14 RBC 2.40 L (3.80-5.40) m/uL Hgb 7.4 L (11.4-16.0) gm/dL Hct 23.8 L (34.0-46.0) % MCV (80.0-100.0) fL MCHC 30.9 L (31.0-37.0) g/dL RDW 17.5 H (11.5-15.5) % Lymphocytes # 0.6 L (1.0-4.8) k/uL APTT (22.0-30.0) sec ABG pO2 (83-108) mmHg ABG HCO3 (21-25) mmol/L ABG Total CO2 (19-24) mmol/L ABG O2 Saturation (94-97) % Hemoglobin (11.4-16.0) gm/dL Carbon Dioxide 32 H (22-30) mmol/L POC Glucose (mg/dL) (70-110) mg/dL Vitamin B12 >3600.0 H (200.0-944.0) pg/mL 02/25/24 Range/Units 06:14 RBC 2.43 L (3.80-5.40) m/uL Hgb 7.5 L (11.4-16.0) gm/dL Hct 24.4 L (34.0-46.0) % MCV 100.3 H (80.0-100.0) fL MCHC 30.9 L (31.0-37.0) g/dL RDW 17.5 H (11.5-15.5) % Lymphocytes # (1.0-4.8) k/uL APTT (22.0-30.0) sec ABG pO2 (83-108) mmHg ABG HCO3 (21-25) mmol/L ABG Total CO2 (19-24) mmol/L ABG O2 Saturation (94-97) % Hemoglobin (11.4-16.0) gm/dL Carbon Dioxide (22-30) mmol/L POC Glucose (mg/dL) (70-110) mg/dL Vitamin B12 (200.0-944.0) pg/mL Assessment and Plan Plan: Acute change in mental status with significant psychosis and possibly drug withdrawal from narcotics. The patient was given Haldol, Zyprexa and Precedex infusion. Currently she is much improved and she is awake and alert and communicating. Precedex will be gradually weaned off. CAT scan of the brain is negative and neurology is on the case. Suspect chronic narcotic medication abuse/dependence. Acute hypoxic respiratory failure, currently off the BiPAP and the patient currently on 3 Suboxone by nasal cannula Fall from standing, status post right femoral neck fracture, status post in situ screw fixation right femoral neck fracture by Dr. Mendoza, the patient is postop day #2 Pain secondary to above, the patient has chronic back pain dependent on Brothers on outpatient basis. Anemia, expected as part of recovery after open heart surgery History of severe mitral regurgitation, moderate to severe tricuspid regurgitation per ENRIQUE, status post mitral valve replacement, tricuspid valve r epair 02/05/24 Severe pulmonary hypertension Chronic heart failure with preserved left ventricular systolic function, EF 55- 60% Third-degree heart block, status post Micra AV device 02/08/24 Mild CAD Hyperlipidemia, treated COPD on home oxygen at night and PRN GERD, suspected stress gastritis Previous tobacco dependence, quit > 1 month ago, [id number] history Occasional marijuana use Chronic narcotic dependence Plan Continue Brothers for pain control Wean off Precedex and gradually discontinue CAT scan of the brain has been negative Discontinue the BiPAP a IV heparin has been discontinued and the patient is currently on Lovenox for DVT prophylaxis Echocardiogram today Change IV fluids to KVO Encourage oral intake Discontinue IV Lasix and start the patient on Lasix 40 mg p.o. daily Will continue to follow
--- NOTE | 2024-02-25 14:47 | P.CN ---
Psychiatric Consult - . Consult date: 02/25/24 Consult:: 02/25/24 14:43 CONSULTATION Reason for consult: AMS identifying Data: The patient is 68 years old, , white female, who lives in [place] in [place], [place]. Reason for admission: Fall injury History of present illness: The patient was brought to the emergency department after a fall. Following initial examination and other work-up, the patient was transferred to medical floor for further management and then transferred to ICU on 02/24/24 secondary to respiratory distress. She was anxious and agitated. Her anxiety, agitation.became worse and she became confused and disoriented. She was given Zyprexa 10 mg IM stat followed IV Precedex with good relief. During this evaluation, the patient was sedated and unable to give meaningful information. She remains confused and sedated. She was not agitated or restless. As per nursing staff, she never had theses episodes in the past and her cognition was clear when she came to the hospital. Past psychiatric history: could not be obtained. As per EMR, past h/o Depres tony. Past medical history: CAD, CHF, GERD, HTN, Pulmonary hypertension, Substance abuse history: Marijuana, MSE: Alert and semi-attentive Orientation X2 Pleasant and cooperative. Psychomotor activity: Mildly decreased. Speech: Low toned, normal in quality, and quantity Mood: Anxious. Affect: Flat SI or HI: None Thought content: Normal Thought process: Normal Perceptual disturbance: Normal Cognition: Intact Judgement and Insight: Poor. Diagnosis: Acute hyperactive delirium secondary to systemic causes- multifactorial, stabilizing. Plan: Medication recommendations: Continue current PRN Psychotropic medications to address agitation and anxiety. Will sign off the case.
--- NOTE | 2024-02-25 14:47 | HP ---
HISTORY AND PHYSICAL HISTORY OF PRESENT ILLNESS: The patient came to the hospital after falling after a week in the [facility], went home and fell within a day, back into the hospital. She has history of valvular heart disease with some mitral regurg, tricuspid valve repair, history of complete heart block, underwent micro device on 02/08/2024. She left the [facility] after a week. She went home and fell, unclear etiology why she fell. EKG, sinus paced rhythm. Hemoglobin is 8.1, white count 6.2. Sodium 136, potassium 3.2, creatinine 0.6. Medications were reviewed. Cardiac catheterization, no blockages. PAST MEDICAL HISTORY: Reviewed. SURGICAL HISTORY: Reviewed. PHYSICAL EXAMINATION: VITAL SIGNS: Reviewed. No acute distress. LUNGS: Show wheezes. HEART: S1, S2. ABDOMEN: Soft, nontender. EXTREMITIES: No cyanosis, clubbing, or edema. NEUROLOGIC: Alert and oriented x3. ASSESSMENT AND PLAN: Right hip fracture post mechanical fall, valvular heart disease status post bioprosthetic mitral valve replacement, tricuspid valve repair, micro device status post complete heart block, anemia, chronic obstructive pulmonary disease, pulmonary hypertension, dyslipidemia, nicotine addiction. They gave her Lasix. Held aspirin and Plavix due to orthopedic surgery. Home cardiac medicines, no contraindications from surgery. Most likely she is supposed to be having surgery today and a followup postop. Please see further orders. MMODL / IJN: [id number] /
--- NOTE | 2024-02-25 14:49 | PN ---
PROGRESS NOTE SUBJECTIVE: This is a 68-year-old white female, seen by Dr. Knox today as well as Dr. Donahue. She was admitted after recent mitral valve, tricuspid valve repair. She fell, she broke her hip. She had hip surgery yesterday. Did cardiac step-down. She had screw fixation of right femoral neck fracture. Chest x-ray, mild bibasilar infiltrates greater than right, possible pneumonia, atelectasis, started on breathing treatments. OBJECTIVE: VITAL SIGNS: Reviewed. CARDIOVASCULAR: S1, S2. LUNGS: Scattered wheeze and rhonchi. HEART: S1, S2. ABDOMEN: Soft. MUSCULOSKELETAL: Range of motion is full except for her hip and the leg on the hip side that was probed. NEUROLOGIC: Cranial nerves intact. ASSESSMENT: Status post mechanical fall, right hip fracture, valvular heart disease, 3 heart blocks, status post micro device, pacemaker, anemia, COPD, severe pulmonary hypertension, dyslipidemia, nicotine addiction. Resume aspirin and Plavix. Home medications. Cardiology cleared her. Continue with PT, OT, possibly go to the rehab center. MMODL / IJN: [id number] /
--- NOTE | 2024-02-25 14:51 | PN ---
PROGRESS NOTE SUBJECTIVE: She apparently was sent to the ICU due to flash pulmonary edema after being acutely short of breath. She was found to have some CHF, was given Lasix. She is having urine output and she is still in sinus rhythm. She is calm, comfortable, arousable, got stimulation while on the BiPAP therapy. She is maintaining pressure of 14/6 with FiO2 of 50%, pH shows pCO2 of 42, pO2 is 254 on BiPAP. Chest x-ray unchanged, cardiomegaly, mild pulmonary congestion. She is on IV heparin. White count is 5.5, hemoglobin is 10.8, platelets 336. She is status post mitral valve replacement, tricuspid valve replacement, severe pulmonary hypertension. She had third-degree heart block for which the pacemaker was placed. She had a nondisplaced right fibular fracture. She is day 2 status post ORIF of the right hip. FAMILY HISTORY: Myocardial infarction in father. Mother; back surgery, , heart catheterization, pacemaker, tubal ligation. MEDICATIONS: From home are reviewed. OBJECTIVE: VITAL SIGNS: Have been reviewed. Current blood pressures are low at 90s to 113 over 70s, respiratory rate 18-24, pulse 99, O2 saturations 100% on room air. She is sedated on Precedex. She is on BiPAP. EYES: Pupils are equal, round, reactive. No scleral icterus. LUNGS: Diminished, mild crackles, wheeze. CARDIOVASCULAR: S1, S2. NEUROLOGIC: Alert and oriented x3. PSYCH: Poor mood and affect. LABORATORY DATA: Hemoglobin 7.3, white count 5.6, BUN is 12, creatinine is 0.55. ASSESSMENT: Acute change in mental status, increased agitation as well as confusion. She may be going through some narcotic withdrawal. She is on Precedex. She is much more comfortable. Acute hypoxemic respiratory failure on BiPAP, congestive heart failure status post valve repair, fall from standing, status post femoral neck fracture stage II, possibly narcotic withdrawal, anemia, severe mitral regurgitation, severe pulmonary hypertension, third-degree heart block, gastroesophageal reflux disease, chronic obstructive pulmonary disease, dyslipidemia, Precedex has been discontinued. Mental status, evaluate the need for CAT scan later in time. Switch BiPAP to O2 by nose. Echo is pending. IV Lasix, IV heparin, IV KVO. Cardiac consultation. Neuro consultation. MMODL / IJN: [id number] /
[2024-02-25 17:30] LABS: Glucose,Whole Blood 54 mg/dL (70-110)
[2024-02-25 18:00] LABS: Glucose,Whole Blood 88 mg/dL (70-110)
[2024-02-25 18:45] LABS: Glucose,Whole Blood 140 mg/dL (70-110)
[2024-02-26 00:48] LABS: Glucose,Whole Blood 75 mg/dL (70-110)
--- NOTE | 2024-02-26 03:34 | EEG ---
ELECTROENCEPHALOGRAM REPORT CLINICAL HISTORY: This is a 68-year-old woman with altered mental status. The video EEG is obtained to evaluate for seizure epileptiform activity. RELEVANT MEDICATIONS: IV Precedex. EEG TYPE: This is a routine 21 channel EEG with video using the 10/20 electrode placement system. DESCRIPTION: Wakefulness is obtained. During awake state, the background consists of low-to- moderate voltage of 4 to 5 hertz activity and sometimes intermixed with delta activity. There is no physiological stage 2 sleep architecture. There is no focal slowing. There is moderate to severe diffuse myogenic artifact. Interictal and ictal are none. ACTIVATION PROCEDURE: Photic stimulation did not evoke a posterior driving response. There is no abnormality during the photic stimulation. Hyperventilation is not performed. CLINICAL INTERPRETATION: This is an abnormal routine EEG. The background slowing is suggestive of moderate-to- severe encephalopathy. There is no focal slowing, epileptiform discharge, or seizure on the EEG. Clinical correlation is recommended. CIARAN / DEVON: [id number] / SHANELL
[2024-02-26 04:40] LABS: Glucose,Whole Blood 81 mg/dL (70-110)
[2024-02-26 06:04] LABS: African American GFR (CKD) >90 (>60 ml/min/1.73 sqM); Anion Gap 2 mmol/L; Blood Urea Nitrogen 10 mg/dL (7-17); Calcium 8.1 mg/dL (8.4-10.2); Carbon Dioxide 31 mmol/L (22-30); Chloride 101 mmol/L (98-107); Glucose 85 mg/dL (74-99); Non-African American GFR(CKD) >90 (>60 ml/min/1.73 sqM); Sodium 134 mmol/L (137-145)
[2024-02-26 06:14] LABS: Anisocytosis Slight; Basophils % (A) 0 %; Eosinophils % (A) 0 %; Hypochromasia Marked; Lymphocytes # (A) 0.6 k/uL (1.0-4.8); Lymphocytes % (A) 12 %; MCH 30.5 pg (25.0-35.0); MCHC 30.7 g/dL (31.0-37.0); MCV 99.6 fL (80.0-100.0); Macrocytosis Slight; Mean Platelet Volume 7.7; Monocytes # (A) 0.3 k/uL (0-1.0); Monocytes % (A) 7 %; Neutrophils % (A) 79 %; Platelet Count 418 k/uL (150-450); RBC 2.31 m/uL (3.80-5.40); RDW 18.2 % (11.5-15.5)
[2024-02-26] MEDS ORDERED: Potassium Replacement Protocol 1 EACH MISC MISCELLANE PRN (06:35)
[2024-02-26] MEDS: POTASSIUM CHLORIDE ER 20 MEQ TAB.ER PO SCH ×2 (06:55→21:30)
--- NOTE | 2024-02-26 07:33 | P.PN ---
Subjective Progress Note Date: 02/26/24 PROGRESS NOTE The patient is a 68-year-old female status post mitral valve replacement with tricuspid valve repair and closure of the left atrial appendage performed on February 04 for symptomatic progressive MR who was readmitted to the hospital after a fall and a fractured hip. Last night she became more dyspneic, agitated, requiring BiPAP and transferred to the ICU. She is sedated on BiPAP, in sinus mechanism. She has underwent surgical intervention for her hip. She had no episodes of hypotension or malignant arrhythmia postprocedure. Her daughter is present today and apparently the patient had issues with narcotic abuse in the past and she is concerned about her receiving narcotics. Preo peratively her low ventricle systolic function was normal and there was no evidence of obstructive CAD. Her D-dimer were elevated and there was a question of pulmonary embolism for which she was started on IV heparin February 24: The patient is sedated, she was agitated earlier. She is off IV heparin. Hemodynamically she is stable. There is no evidence of malignant arrhythmia. She is undergoing an EEG. Her urinary output has been stable. There is no episodes of hypotension. February 25: The patient is awake, alert in sinus mechanism. She denies any chest discomfort, dizziness or palpitations. She has discomfort at the hip at the site of surgery. She denies any dizziness or palpitations. She is on nasal cannula. Her urinary output is stable. She denies any nausea or vomiting. Her echocardiogram showed an ejection fraction of 35 to 40% with moderate severe aortic regurgitation and mild tricuspid regurgitation. Her systolic function preoperatively was reported to be normal Medications: Aspirin, Lipitor 40 mg daily, citalopram, Plavix 75 mg daily, furosemide 40 mg daily, losartan 12.5 mg daily, Adderall 10 mg twice a day PHYSICAL EXAMINATION: Blood pressure 112/60 heart rate 89 LUNGS: Clear to auscultation anteriorly HEART: Regular rate and rhythm, S1, S2. No S3. Systolic ejection murmur ABDOMEN: Soft, nontender, no organomegaly EXTREMETIES: No edema LAB: Hemoglobin 7, WBC 5.0, potassium 3.0, BUN 10, creatinine 0.43 IMPRESSION: 1. Respiratory failure, stable probably related to narcotics, resolved 2. Status post mitral valve replacement and tricuspid valve repair 3. Status post pacemaker implantation 4. History of chronic pain and narcotic use 5. Status post fall and fractured hip, status post surgery 6. Confusion, improved 7. Cardiomyopathy, noted postoperatively PLAN: 1. Add spironolactone 2. Follow blood pressure and if stable add a beta-jose 3. Start Farxiga because of the low ejection fraction 4. Increase physical activity as tolerated 5. Follow renal functions Objective - Vital Signs Vital signs: Vital Signs Temp 98.4 F 02/26/24 04:00 Pulse 89 02/26/24 07:00 Resp 22 02/26/24 07:00 BP 92/58 02/26/24 07:00 Pulse Ox 96 02/26/24 07:00 FiO2 40 02/25/24 20:00 Intake & Output 02/25/24 02/26/24 02/26/24 18:59 06:59 18:59 Intake Total 750.194 500 10 Output Total 1970 242 25 Balance -1219.806 258 -15 Weight 61.7 kg Intake: IV 155 20 10 Sodium Chloride 0.9% 1, 155 20 10 000 ml @ 10 mls/hr IV . Q24H KAMINI Rx#:[id number] Intake, IV Titration 55.194 Amount Dexmedetomidine/0.9% NaCl 55.194 (Pmx) 400 mcg In Empty Bag 1 bag @ 0.2 MCG/KG/HR 3.4 mls/hr IV .Q24H KAMINI Rx#:[id number] Oral 540 480 Output: Urine 1970 242 25 Other: Voiding Method Indwelling Catheter Indwelling Catheter - Labs CBC & Chem 7: 02/26/24 02:51 02/26/24 02:51 Labs: Abnormal Lab Results - Last 24 Hours (Table) 02/25/24 02/25/24 02/26/24 Range/Units 17:29 18:43 02:51 RBC (3.80-5.40) m/uL Hgb (11.4-16.0) gm/dL Hct (34.0-46.0) % MCHC (31.0-37.0) g/dL RDW (11.5-15.5) % Lymphocytes # (1.0-4.8) k/uL Sodium 134 L (137-145) mmol/L Potassium 3.0 L (3.5-5.1) mmol/L Carbon Dioxide 31 H (22-30) mmol/L Creatinine 0.43 L (0.52-1.04) mg/dL POC Glucose (mg/dL) 54 L 140 H (70-110) mg/dL Calcium 8.1 L (8.4-10.2) mg/dL 02/26/24 Range/Units 02:51 RBC 2.31 L (3.80-5.40) m/uL Hgb 7.0 L (11.4-16.0) gm/dL Hct 23.0 L (34.0-46.0) % MCHC 30.7 L (31.0-37.0) g/dL RDW 18.2 H (11.5-15.5) % Lymphocytes # 0.6 L (1.0-4.8) k/uL Sodium (137-145) mmol/L Potassium (3.5-5.1) mmol/L Carbon Dioxide (22-30) mmol/L Creatinine (0.52-1.04) mg/dL POC Glucose (mg/dL) (70-110) mg/dL Calcium (8.4-10.2) mg/dL
[2024-02-26] MEDS: DAPAGLIFLOZIN PROPANEDIOL 10 MG TABLET PO SCH (09:53)
[2024-02-26] MEDS: SPIRONOLACTONE 25 MG TAB PO SCH (09:53)
--- NOTE | 2024-02-26 09:54 | XR ---
EXAMINATION TYPE: XR chest 1V portable DATE OF EXAM: 02/24/2024 COMPARISON: 02/25/2024 INDICATION: Post cardiac surgery TECHNIQUE: Single frontal view of the chest is obtained. FINDINGS: The heart size is normal. The pulmonary vasculature is normal. Mild scattered infiltrates at the lung bases. IMPRESSION: 1. Nonspecific infiltrate bilateral lung bases. Correlate for atelectasis. [facility], , 02/26/2024 9:36 AM
[2024-02-26] MEDS: SYMBICORT 160-4.5 MCG INHALER INHALATION SCH (11:31)
--- NOTE | 2024-02-26 13:20 | P.PN ---
Subjective Progress Note Date: 02/26/24 I am following up with the patient and she feels her mentation is improving. Denies of any new neurological issues Objective - Vital Signs Vital signs: Vital Signs Temp 98.6 F 02/26/24 08:00 Pulse 84 02/26/24 12:00 Resp 26 H 02/26/24 12:00 BP 113/66 02/26/24 12:00 Pulse Ox 99 02/26/24 12:00 FiO2 40 02/25/24 20:00 Intake & Output 02/25/24 02/26/24 02/26/24 18:59 06:59 18:59 Intake Total 750.194 500 30 Output Total 1970 242 70 Balance -1219.806 258 -40 Weight 61.7 kg Intake: IV 155 20 30 Sodium Chloride 0.9% 1, 155 20 30 000 ml @ 10 mls/hr IV . Q24H KAMINI Rx#:[id number] Intake, IV Titration 55.194 Amount Dexmedetomidine/0.9% NaCl 55.194 (Pmx) 400 mcg In Empty Bag 1 bag @ 0.2 MCG/KG/HR 3.4 mls/hr IV .Q24H KAMINI Rx#:[id number] Oral 540 480 Output: Urine 1970 242 70 Other: Voiding Method Indwelling Catheter Indwelling Catheter Indwelling Catheter - Exam General: Lying in bed and is not in acute distress. Neuro: Patient is awake, alert, oriented to self, place and time. Is following simple commands. Has hypophonia. No aphasia. Pupils are round, equal and reactive to light. No facial weakness. No dysathria. Motor: Lifting bilateral uppers above gravity equally. RIght lower is limited because of pain. Left lower is lifting above gravity. Some of the workup during this hospital visit consisted of: Ammonia is 23 Vitamin B12: >3600 Serum folate: 22.5 TSH: 3.03 CT head: Motion limited exam. No acute intracranial process. EEG is abnormal. The background slowing is suggestive of moderate to severe encephalopathy. There is no focal slowing, OptiForm discharge or seizure on the EEG - Labs CBC & Chem 7: 02/26/24 02:51 02/26/24 02:51 Labs: Abnormal Lab Results - Last 24 Hours (Table) 02/25/24 02/25/24 02/26/24 Range/Units 17:29 18:43 02:51 RBC (3.80-5.40) m/uL Hgb (11.4-16.0) gm/dL Hct (34.0-46.0) % MCHC (31.0-37.0) g/dL RDW (11.5-15.5) % Lymphocytes # (1.0-4.8) k/uL Sodium 134 L (137-145) mmol/L Potassium 3.0 L (3.5-5.1) mmol/L Carbon Dioxide 31 H (22-30) mmol/L Creatinine 0.43 L (0.52-1.04) mg/dL POC Glucose (mg/dL) 54 L 140 H (70-110) mg/dL Calcium 8.1 L (8.4-10.2) mg/dL 02/26/24 Range/Units 02:51 RBC 2.31 L (3.80-5.40) m/uL Hgb 7.0 L (11.4-16.0) gm/dL Hct 23.0 L (34.0-46.0) % MCHC 30.7 L (31.0-37.0) g/dL RDW 18.2 H (11.5-15.5) % Lymphocytes # 0.6 L (1.0-4.8) k/uL Sodium (137-145) mmol/L Potassium (3.5-5.1) mmol/L Carbon Dioxide (22-30) mmol/L Creatinine (0.52-1.04) mg/dL POC Glucose (mg/dL) (70-110) mg/dL Calcium (8.4-10.2) mg/dL Assessment and Plan Assessment: This is a 68-year-old woman with a recent CABG about 2 weeks ago who was disch arged to rehab facility and then from there she was discharged home and had a recent fall in which she seems she is tripped in her slipper landing on her right hip. She was found to have right femoral fracture status post fixation postop day 1. Patient has underlying history of chronic lower back pain and she is on Forest and there is suspicion that there is possible withdrawal from the pain medication and today she is restless agitated. It seems that the patient is having respiratory distress and there is a concern that she has heart failure and she received IV Lasix. There is also suspicion to rule out pulmonary embolism and currently she is on IV heparin drip. Patient received antipsy chotic and she is on IV Precedex. Altered mental status seems multifactorial due to metabolic and hypoxic encephalopathy, hospital induced encephalopathy and questionable withdrawal from opiates---mentation is drastically better in last two days and is oriented X3. Acute hypoxic respiratory failure on BiPAP and chest x-ray showing component of congestive heart related with cardiomegaly. Recent fall result the patient has right femoral fracture status post fixation postop day 1. Recent CABG Chronic back pain the patient is dependent on Forest on outpatient basis Anemia History of severe mitral regurgitation as well as moderate to severe tricuspid regurgitation status post mitral valve replacement as well as tricuspid valve repair on 02/05/2024 Severe pulmonary hypertension Chronic heart failure Third-degree heart block COPD on home oxygen Previous tobacco use Chronic narcotic dependence Occasional marijuana use Plan: Please avoid opiates/sedation if possible Will defer the rest of the medical management to primary and other specialist There is no further neurological workup. Will sign off. Please reconsult if needed. Time with Patient: Less than 30
--- NOTE | 2024-02-26 13:39 | P.PN ---
Subjective Progress Note Date: 02/26/24 This is a 68-year-old female patient who became acutely short of breath. The patient was on 2 L of oxygen by nasal cannula. She became restless, agitated, and thrashing and at the same time she was noted to have labored breathing. At that point, the patient got transferred to the intensive care unit. Chest x-ray was consistent with CHF and the patient was given Lasix with some urine output. She remained in a normal sinus rhythm. She did not require any pressors. Overnight, the patient continued to have increased agitation and restlessness and narcotic withdrawal was suspected. The patient was given Dilaudid. The patient was also placed on Precedex and this morning the patient is on Precedex which is running at 1.4 mcg/kg/min. She seems to be much more calm and comfortable. She is still arousable upon stimulation. While on the BiPAP therapy, the patient has been maintained on a pressure of 14/6 with an FiO2 of 60%. Unable to obtain an adequate pulse ox. Based on that, blood gas was done and the patient was found to have a pH of 7.43 with a pCO2 of 42 and pO2 of 254 on above-mentioned BiPAP settings. Repeat chest x-ray from today is essentially unchanged and is consistent with cardiomegaly and mild pulm vas congestion. The patient remains on IV Lasix. I was concerned of a pulmonary embolism as the patient underwent a recent hip surgery for a hip fracture. I started the patient IV heparin pending further workup. The white cell count is at 5.6 with a hemoglobin 7.8 platelet count of 336. BUN is 12 with a creatinine of 0.55 resolved levels at 136. Noted the patient is status post mitral valve replacement and stress His valve repair that was done on 02/05/2024. She has CHF with preserved LV function and severe pulmonary hypertension. Postop, the patient encountered the third-degree AV block and the patient required a Micra AV device that was inserted on 02/08/2024. She has mild coronary artery disease. She has hyperlipidemia and COPD and she is on home O2. She also has history of acid reflux and gastritis. During this current admission, the patient had a nondisplaced right fibular fracture due to a fall and the patient underwent a ORIF of the right femoral neck fracture and the patient is currently postop day #1. Surgical wound site is dry clean and intact. No focal neurological deficit. Daughter is at the bedside. 02/25/2024, the patient is doing much better compared to yesterday. The patient is on Precedex which is running at 0.5 mcg/kg/min this being gradually weaned off. No significant agitation. She is awake and alert and communicating. No focal neurological deficits. CAT scan of the brain was done yesterday and showed no acute abnormalities. The patient was also taken off the BiPAP and the patient is currently on oxygen and 3 L with a pulse ox of 99 to 100%. Chest x- ray showed some mild pulmonary vascular congestion. Otherwise, no other acute abnormalities has been noted. Small right-sided pleural effusion was also noted. The patient's hemodynamics is stable. White cell count is 4.3, he was 7.5 with a platelet count of 305. BUN is 13 with a creatinine of 0.55 and a sodium levels at 138 with a potassium level of 3.8. Cardiac rhythm is sinus. No other significant events overnight. IV fluids are running at a rate of 75 cc an hour. The patient also is on IV Lasix. On 02/26/2024, the patient is calm and comfortable. The patient is awake. He has no specific complaints. The patient has been taken off the Precedex. The patient denies having any significant respiratory distress. She is currently on 3 L of oxygen by nasal cannula with a pulse ox of 99%. No chest pain. No cough or sputum production. No other significant events overnight. Her hemoglobin is down to 7 and a white cell count is at 5. Platelet count is 43. Rest of the electrolytes are all within normal limits. The patient has no focal neurological deficits. Repeat chest x-ray was done today and the patient continues to have some cardiomegaly and pulm vasculature is within normal limits. Some mild scattered infiltrates in lung base bilaterally. The patient has no issues with pain. No agitation. Her delirium is completely subsided. Pain is under good control. Echocardiogram was noted and the patient was found to have an ejection fraction of 35 to 40% and the patient has moderate to severe aortic regurgitation and mitral replacement valve with trace mitral regurgitation. Objective - Vital Signs Vital signs: Vital Signs Temp 98.6 F 02/26/24 08:00 Pulse 84 02/26/24 09:00 Resp 15 02/26/24 09:00 BP 98/62 02/26/24 09:00 Pulse Ox 94 L 02/26/24 09:00 FiO2 40 02/25/24 20:00 Intake & Output 02/25/24 02/26/24 02/26/24 18:59 06:59 18:59 Intake Total 750.194 500 30 Output Total 1969 242 70 Balance -1219.806 258 -40 Weight 61.7 kg Intake: IV 155 20 30 Sodium Chloride 0.9% 1, 155 20 30 000 ml @ 10 mls/hr IV . Q24H [facility] Rx#:[id number] Intake, IV Titration 55.194 Amount Dexmedetomidine/0.9% NaCl 55.194 (Pmx) 400 mcg In Empty Bag 1 bag @ 0.2 MCG/KG/HR 3.4 mls/hr IV .Q24H [facility] Rx#:[id number] Oral 540 480 Output: Urine 1969 242 70 Other: Voiding Method Indwelling Catheter Indwelling Catheter Indwelling Catheter - Exam General Appearance, the patient is currently on Precedex and she is calm and comfortable on 3 liters oxygen by nasal cannula Head exam was generally normal. There was no scleral icterus or corneal arcus. Mucous membranes were moist. Neck was supple and without jugular venous distension, thyromegaly, or carotid bruits. Carotids were easily palpable bilaterally. There was no adenopathy. Lung sounds are diminished bilaterally and the patient has limited crackles lung base bilaterally. No wheezes. Cardiac exam revealed the PMI to be normally situated and sized. The rhythm was regular and no extrasystoles were noted during several minutes of auscultation. The first and second heart sounds were normal and physiologic splitting of the second heart sound was noted. There were no murmurs, rubs, clicks, or gallops. The patient has a thoracotomy scar which is dry clean and intact. Abdominal exam revealed normal bowel sounds. The abdomen was soft, non-tender, and without masses, organomegaly, or appreciable enlargement of the abdominal aorta. Examination of the extremities revealed easily palpable radial, femoral and pedal pulses. There was no cyanosis, clubbing or edema. Examination of the skin revealed no evidence of significant rashes, suspicious appearing nevi or other concerning lesions. Neurologically, alert and oriented x 3 without any focal neurological deficits - Labs CBC & Chem 7: 02/26/24 02:51 02/26/24 02:51 Labs: Abnormal Lab Results - Last 24 Hours (Table) 02/25/24 02/25/24 02/26/24 Range/Units 17:29 18:43 02:51 RBC (3.80-5.40) m/uL Hgb (11.4-16.0) gm/dL Hct (34.0-46.0) % MCHC (31.0-37.0) g/dL RDW (11.5-15.5) % Lymphocytes # (1.0-4.8) k/uL Sodium 134 L (137-145) mmol/L Potassium 3.0 L (3.5-5.1) mmol/L Carbon Dioxide 31 H (22-30) mmol/L Creatinine 0.43 L (0.52-1.04) mg/dL POC Glucose (mg/dL) 54 L 140 H (70-110) mg/dL Calcium 8.1 L (8.4-10.2) mg/dL 02/26/24 Range/Units 02:51 RBC 2.31 L (3.80-5.40) m/uL Hgb 7.0 L (11.4-16.0) gm/dL Hct 23.0 L (34.0-46.0) % MCHC 30.7 L (31.0-37.0) g/dL RDW 18.2 H (11.5-15.5) % Lymphocytes # 0.6 L (1.0-4.8) k/uL Sodium (137-145) mmol/L Potassium (3.5-5.1) mmol/L Carbon Dioxide (22-30) mmol/L Creatinine (0.52-1.04) mg/dL POC Glucose (mg/dL) (70-110) mg/dL Calcium (8.4-10.2) mg/dL Assessment and Plan Plan: Acute change in mental status with significant psychosis and possibly drug withdrawal from narcotics. The patient was given Haldol, Zyprexa and Precedex infusion. Currently she is much improved and she is awake and alert and communicating. Precedex will be gradually weaned off. CAT scan of the brain is negative and neurology is on the case. Suspect chronic narcotic medication abuse/dependence. The patient is fully recovered and the mental status is back to normal. She has not required any further treatment for agitation as the patient has been able to come off the Precedex without any major difficulties. Mentation is normal. CAT scan of the brain has been negative. Acute hypoxic respiratory failure, currently off the BiPAP and the patient currently on 3 liters of oxygen nasal cannula Fall from standing, status post right femoral neck fracture, status post in situ screw fixation right femoral neck fracture by Dr. Mendoza, the patient is postop day # 3, no issues with pain Pain secondary to above, the patient has chronic back pain dependent on Page on outpatient basis. Anemia, expected as part of recovery after open heart surgery History of severe mitral regurgitation, moderate to severe tricuspid regurgitation per ENRIQUE, status post mitral valve replacement, tricuspid valve repair 02/05/24 Severe pulmonary hypertension Chronic heart failure with preserved left ventricular systolic function, EF 35% and the patient has evidence of moderate aortic regurgitation with trace mitral regurgitation and this is a postop echocardiogram that was done On 02/24/2024. As mentioned, the patient ejection fraction is in the order of 35 to 40%. The patient has moderate to severe aortic regurgitation and trace mitral regurgitation. Third-degree heart block, status post Micra AV device 02/08/24 Mild CAD Hyperlipidemia, treated COPD on home oxygen at night and PRN GERD, suspected stress gastritis Previous tobacco dependence, quit > 1 month ago, [id number] history Occasional marijuana use Chronic narcotic dependence Plan Continue Page for pain control, the patient's pain is under adequate control for now. No signs of any ongoing pain or narcotic medication withdrawal symptoms. The patient's delirium has completely subsided. The patient is currently off Precedex. CAT scan of the brain has been negative BiPAP has been discontinued Lovenox for DVT prophylaxis Echocardiogram today Change IV fluids to KVO Encourage oral intake Lasix 40 mg p.o. daily Will transfer the patient to the medical surgical floor Will continue to follow
[2024-02-26 13:40] VITALS: BMI 26.5
[2024-02-26 18:27] LABS: Glucose,Whole Blood 68 mg/dL (70-110)
[2024-02-26 18:48] LABS: Glucose,Whole Blood 76 mg/dL (70-110)
--- NOTE | 2024-02-26 23:23 | P.CONS ---
History of Present Illness - Reason for Consult Consult date: 02/26/24 Anemia - History of Present Illness the patient is a 68-year-old white female, with a complicated recent past medical and surgical history. The patient had major cardiac well surgery earlier this month. Prior to the surgery, her hemoglobin is grossly normal, but drop subsequently to 5.8 reguiring transfusion. cor hemoglobin subsequently improved into the 7-8 range. The patient was then admitted with a fall and rig ht hip fracture. She underwent surgical repair for the same. Subsequently she developed agitation, shortness of breath, and change in mentation, due to which she was transferred to the ICU. It was ultimately felt that this presentation was possibly due to withdrawal from pain medications, as well as fluid overload. Her hemoglobin has stayed low, and the seventh have an 8 range, and was 7 today leading to this consult The patient denied any prior history of blood related problems or malignancy. She has not observed any obvious bleeding. She has had EGD and colonoscopy, between 5-10 years ago. The patient is on double and updated therapy, and was temporarily on IV heparin when she developed acute respiratory failure, due to concern for PE. This was able to be ruled out subsequently. Chest x-ray shows some basilar infiltrates, infection versus atelectasis. Brain CT was negative for bleed or CVA. Echocardiogram showed well placement, an EF of 35% -40% Review of Systems Constitutional: Reports poor appetite, Reports weakness Eyes: denies blurred vision, denies pain Ears: deny: decreased hearing, ear discharge, earache, tinnitus Ears, nose, mouth and throat: Denies headache, Denies sore throat Cardiovascular: Reports as per HPI, Reports shortness of breath Respiratory: Reports dyspnea Gastrointestinal: Denies abdominal pain, Denies diarrhea, Denies nausea, Denies vomiting Genitourinary: Denies dysuria, Denies hematuria Menstruation: Reports postmenopausal Musculoskeletal: Reports muscle weakness Integumentary: Denies pruritus, Denies rash Neurological: Reports change in mentation (resolved), Reports weakness Psychiatric: Reports confusion (resolved) Past Medical History Past Medical History: Coronary Artery Disease (CAD), Heart Failure, COPD, GERD/Reflux, Hyperlipidemia, Pneumonia, Syncope Additional Past Medical History / Comment(s): Severe mitral regurgitation, moderate to severe tricuspid regurgitation, severe pulmonary hypertension, third-degree heart block History of Any Multi-Drug Resistant Organisms: None Reported Past Surgical History: Back Surgery, Section, Heart Catheterization, P acemaker, Tubal Ligation Additional Past Surgical History / Comment(s): L4-L5 decompression. 02/05/2024 mitral valve replacement (29mm Hannah Mitris resilia), tricuspid valve repair (30 mm Hannah MC3 ring), ligation left atrial appendage (35 mm Atriclip). 02/09/24 implantation of micra AV device Past Anesthesia/Blood Transfusion Reactions: No Reported Reaction Type of Cardiac Device: Permanent Pacemaker Device Placement Date:: 02/09/24 Past Psychological History: Depression Smoking Status: Former smoker Past Alcohol Use History: None Reported Additional Past Alcohol Use History / Comment(s): < 1 pack per day smoker. Patient smoked for 45 years. No illicit drug use, no alcohol use. Past Drug Use History: Marijuana Additional Drug Use History / Comment(s): Occasional marijuana Gummies - Past Family History Mother Family Medical History: Myocardial Infarction (ND) Additional Family Medical History / Comment(s): Mother at age 78 from myocardial infarction with history of pneumonia, 3 vessel CABG. Father Additional Family Medical History / Comment(s): Patient recently found out that the man who raised her was not her biological father, unknown history of biological father Brother(s) Additional Family Medical History / Comment(s): Patient has 2 brothers and one has known spinal stenosis. Patient has 2 sisters and one has Crohn's and one has Edvin-Vieira. Patient has one daughter with Crohn's disease. Medications and Allergies Home Medications Medication Instructions Recorded Confirmed Type Citalopram Hydrobromide 40 mg PO DAILY 12/26/22 02/22/24 History [Citalopram HBr] Cyanocobalamin (Vitamin B-12) 1,000 mcg PO DAILY 12/26/22 02/22/24 History [Vitamin B-12] Fluticasone/Umeclidin/Vilanter 1 puff INHALATION RT-DAILY 12/26/22 02/22/24 History [Trelegy Ellipta 200-62.5-25] Omeprazole [PriLOSEC] 40 mg PO DAILY 12/26/22 02/22/24 History buPROPion SR [Wellbutrin SR] 150 mg PO BID 12/26/22 02/22/24 History Citalopram Hydrobromide [CeleXA] 20 mg PO DAILY 02/05/23 02/22/24 History Ipratropium-Albuterol Nebulize 3 ml INHALATION RT-QID PRN 02/05/23 02/22/24 History [Duoneb 0.5 mg-3 mg/3 ml Soln] Cholecalciferol (Vitamin D3) 50 mcg PO DAILY 02/01/24 02/22/24 History [Vitamin D3 (50 Mcg = 2000 Iu)] Folic Acid 1 mg PO DAILY 02/01/24 02/22/24 History Ascorbic Acid [Vitamin C] 500 mg PO BID-W/MEALS tab 02/15/24 02/22/24 Rx Aspirin 325 mg PO DAILY tab 02/15/24 02/22/24 Rx Calcium Carbonate [Tums] 1,000 mg PO QID PRN tab 02/15/24 02/22/24 Rx Clopidogrel [Plavix] 75 mg PO DAILY tab 02/15/24 02/22/24 Rx Ferrous Sulfate [Iron (65 MG 325 mg PO BID-W/MEALS tab 02/15/24 02/22/24 Rx Elemental)] Furosemide [Lasix] 40 mg PO DAILY tab 02/15/24 02/22/24 Rx Gabapentin [Neurontin] 100 mg PO TID cap 02/15/24 02/22/24 Rx Losartan [Cozaar] 12.5 mg PO DAILY tab 02/15/24 02/22/24 Rx Pantoprazole [Protonix] 40 mg PO AC-BID tab 02/15/24 02/22/24 Rx Atorvastatin [Lipitor] 40 mg PO HS 02/22/24 02/22/24 History Budesonide [Pulmicort] 1 mg INHALATION RT-BID@0800,1700 02/22/24 02/22/24 History Dextroamphetamine/Amphetamine 10 mg PO BID@0700,1700 02/22/24 02/22/24 History [Adderall] Formoterol Fumarate [Perforomist] 20 mcg INHALATION RT-BID@0800,1700 02/22/24 02/22/24 History HYDROcodone/APAP 10-325MG [[place] 1 tab PO Q8H 02/22/24 02/22/24 History 10-325] Lidocaine Viscous 2% [Xylocaine 10 ml MUCOUS MEM W/SUPPER 02/22/24 02/22/24 History Viscous] Mag Hydrox/Al Hydrox/Simeth 30 ml PO W/SUPPER 02/22/24 02/22/24 History [Maalox] Allergies Allergy/AdvReac Type Severity Reaction Status Date / Time amoxicillin [From Augmentin] AdvReac Nausea & Verified 02/22/24 07:58 Vomiting clavulanic acid AdvReac Nausea & Verified 02/22/24 07:58 [From Augmentin] Vomiting Physical Exam Vitals: Vital Signs Temp Pulse Resp BP BP Pulse Ox 02/26/24 20:29 92 02/26/24 20:16 93 02/26/24 20:00 97.7 F 20 140/71 94 L 02/26/24 19:00 94 18 119/68 89 L 02/26/24 18:00 87 15 128/63 93 L 02/26/24 17:00 87 8 L 126/69 95 02/26/24 16:00 98 F 90 26 H 120/68 94 L 02/26/24 15:42 87 02/26/24 15:31 90 02/26/24 15:00 89 22 126/69 94 L 02/26/24 14:00 87 17 126/75 100 02/26/24 13:00 90 17 125/72 98 02/26/24 12:00 84 26 H 113/66 99 02/26/24 11:44 89 02/26/24 11:32 88 02/26/24 11:00 86 17 127/87 94 L 02/26/24 10:00 87 21 105/71 96 02/26/24 09:00 84 15 98/62 94 L 02/26/24 08:00 98.6 F 76 15 126/68 96 02/26/24 07:00 89 22 92/58 96 02/26/24 06:00 84 14 112/61 94 L 02/26/24 05:00 91 20 124/65 98 02/26/24 04:00 98.4 F 92 21 106/60 96 02/26/24 03:00 90 18 104/53 98 02/26/24 02:00 91 16 113/58 96 02/26/24 01:00 91 24 109/58 98 02/26/24 00:00 98.4 F 91 18 126/57 99 Intake and Output 02/26/24 02/26/24 02/27/24 14:59 22:59 06:59 Intake Total 30 610 Output Total 70 1100 Balance -40 -490 Intake: IV 30 10 Invasive Line 3 10 Sodium Chloride 0.9% 1, 30 000 ml @ 10 mls/hr IV . Q24H [facility] Rx#:[id number] Oral 600 Output: Urine 70 1100 Other: Voiding Method Indwelling Catheter Indwelling Catheter Weight 61.7 kg - Constitutional General appearance: no acute distress - EENT Eyes: EOMI, PERRLA ENT: hearing grossly normal, normal oropharynx - Neck Neck: no lymphadenopathy Thyroid: bilateral: normal size - Respiratory Respiratory: bilateral: diminished - Cardiovascular Rhythm: regular Heart sounds: normal: S1, S2 Abnormal Heart Sounds: click - Gastrointestinal General gastrointestinal: normal bowel sounds, soft - Integumentary Integumentary: normal - Neurologic Neurologic: CNII-XII intact - Musculoskeletal Musculoskeletal: generalized weakness, strength equal bilaterally - Psychiatric Psychiatric: A&O x's 3, appropriate affect Results CBC & Chem 7: 02/26/24 02:51 02/26/24 19:59 Labs: Abnormal Lab Results - Last 24 Hours (Table) 02/26/24 02/26/24 02/26/24 Range/Units 02:51 02:51 18:25 RBC 2.31 L (3.80-5.40) m/uL Hgb 7.0 L (11.4-16.0) gm/dL Hct 23.0 L (34.0-46.0) % MCHC 30.7 L (31.0-37.0) g/dL RDW 18.2 H (11.5-15.5) % Lymphocytes # 0.6 L (1.0-4.8) k/uL Sodium 134 L (137-145) mmol/L Potassium 3.0 L (3.5-5.1) mmol/L Carbon Dioxide 31 H (22-30) mmol/L Creatinine 0.43 L (0.52-1.04) mg/dL POC Glucose (mg/dL) 68 L (70-110) mg/dL Calcium 8.1 L (8.4-10.2) mg/dL 02/26/24 Range/Units 19:59 RBC (3.80-5.40) m/uL Hgb (11.4-16.0) gm/dL Hct (34.0-46.0) % MCHC (31.0-37.0) g/dL RDW (11.5-15.5) % Lymphocytes # (1.0-4.8) k/uL Sodium (137-145) mmol/L Potassium 3.1 L (3.5-5.1) mmol/L Carbon Dioxide (22-30) mmol/L Creatinine (0.52-1.04) mg/dL POC Glucose (mg/dL) (70-110) mg/dL Calcium (8.4-10.2) mg/dL Comments: echocardiogram report reviewed Chest x-ray: report reviewed CT Scan - head: report reviewed Venous US: report reviewed Assessment and Plan (1) Anemia Narrative/Plan: the patient is being seen for significant anemia, that appears to be essentially new onset, since her cardiac surgery. Major drops in hemoglobin can definitely occurred after surgery of this time. Typically with supportive care hemoglobin improvement should occur spontaneously. However in this patient, due to additional events, including hip fracture requiring surgery, and then acute respiratory failure, the spontaneous recovery can definitely be retarded due to these additional stressors. Other causes, such as blood loss, in this patient on double antiplatelet therapy, as well as high risk for developing stress gastritis, are within the differential. - Labs will be ordered to check for deficiency state, as well as hemolysis, given recent cardiac valve surgery - Continue to monitor and transfuse to keep hemoglobin greater than or equal to 7 Current Visit: Yes Status: Acute Code(s): D64.9 - ANEMIA, UNSPECIFIED SNOMED Code(s): 411634604 Plan: defer to the admitting service and other consultants for management of her multiple other medical problems.
[2024-02-27 01:04] LABS: Glucose,Whole Blood 98 mg/dL (70-110)
[2024-02-27 06:29] LABS: Anisocytosis Slight; HCT 26.1 % (34.0-46.0); Hypochromasia Marked; MCH 30.6 pg (25.0-35.0); MCHC 30.8 g/dL (31.0-37.0); MCV 99.4 fL (80.0-100.0); Macrocytosis Moderate; Mean Platelet Volume 7.6; Platelet Count 450 k/uL (150-450); Poikilocytosis Slight; RBC 2.62 m/uL (3.80-5.40); RDW 18.5 % (11.5-15.5); Reticulocyte % 3.7 % (0.5-2.0); WBC 5.4 k/uL (3.8-10.6)
[2024-02-27 07:23] LABS: Glucose,Whole Blood 97 mg/dL (70-110)
--- NOTE | 2024-02-27 10:55 | P.PN ---
Subjective Progress Note Date: 02/27/24 Principal diagnosis: Right hip fracture due to mechanical fall Status post mitral valve replacement for valvular heart disease bioprosthetic valve Status post tricuspid valve repair Complete heart block Anemia of chronic disease COPD Pulmonary hypertension Dyslipidemia February 27, 2024, patient seen eval examined while covering for Dr. Raheem Mujica, patient is well-known to me from the office. She has end-stage COPD due to increasing shortness of breath transferred to the ICU related to CHF with fluid overload responded well with Lasix. Patient was restless agitated requiring Precedex drip and BiPAP support, now off of it. Patient was started on IV heparin for concern of pulmonary embolism. Patient had a echocardiogram revealed ejection fraction of 35 to 40% and moderate to severe aortic regurgitation currently patient is afebrile with stable hemodynamic blood pressure 135/2 74, on 3 L nasal cannula tolerating well oxygen saturation is mid 90s labs done today hemoglobin improved to 8, platelet count 450 Objective - Vital Signs Vital signs: Vital Signs Temp 98.0 F 02/27/24 04:00 Pulse 91 02/27/24 07:00 Resp 20 02/27/24 07:00 BP 131/76 02/27/24 07:00 Pulse Ox 93 L 02/27/24 08:15 FiO2 40 02/25/24 20:00 Intake & Output 02/26/24 02/27/24 02/27/24 18:59 06:59 18:59 Intake Total 630 260 Output Total 1170 260 240 Balance -540 0 -240 Weight 61.7 kg 62.3 kg Intake: IV 30 260 Invasive Line 3 20 Sodium Chloride 0.9% 1, 30 240 000 ml @ 10 mls/hr IV . Q24H [facility] Rx#:[id number] Oral 600 Output: Urine 1170 260 240 Other: Voiding Method Indwelling Catheter Indwelling Catheter - Constitutional General appearance: Present: average body habitus, cooperative, disheveled - EENT Eyes: Present: EOMI, PERRLA Ears: bilateral: normal - Neck Neck: Present: normal ROM Carotids: bilateral: upstroke normal Thyroid: bilateral: normal size - Respiratory Respiratory: bilateral: CTA, diminished - Cardiovascular Rhythm: regular Heart sounds: normal: S1, S2 - Gastrointestinal General gastrointestinal: Present: soft - Neurologic Neurologic: Present: CNII-XII intact - Musculoskeletal Musculoskeletal: Present: gait normal, generalized weakness, strength equal bilaterally - Psychiatric Psychiatric: Present: A&O x's 3, appropriate affect, intact judgment & insight - Labs CBC & Chem 7: 02/27/24 05:42 02/26/24 19:59 Labs: Abnormal Lab Results - Last 24 Hours (Table) 02/26/24 02/26/24 02/27/24 Range/Units 18:25 19:59 05:42 RBC 2.62 L (3.80-5.40) m/uL Hgb 8.0 L (11.4-16.0) gm/dL Hct 26.1 L (34.0-46.0) % MCHC 30.8 L (31.0-37.0) g/dL RDW 18.5 H (11.5-15.5) % Retic Count 3.7 H (0.5-2.0) % Potassium 3.1 L (3.5-5.1) mmol/L POC Glucose (mg/dL) 68 L (70-110) mg/dL Assessment and Plan Assessment: Acute on chronic hypoxic respiratory failure, continue supplemental oxygen as needed BiPAP End-stage COPD without exacerbation on bronchodilators supplemental oxygen, continue 3 L oxygen nasal cannula as needed BiPAP, hold on IV steroids Episode of altered mental status, awake and alert now off of Precedex, neurology following CT scan of the head is negative Status post fall and right femoral neck fracture, status post screw fixation by orthopedics Pulmonary hypertension group 3 Acute on chronic systolic heart failure cardiovascular services are following patient has significant valvular heart disease involving aortic mitral and tricuspid valve History of third-degree heart block with Micra AV device early January 2024 Dyslipidemia hypertension hypertensive cardiovascular disease continue expectant treatment DVT prophylaxis with Lovenox Take ulcer disease prophylaxis with PPI Plan: As above Time with Patient: Greater than 30
[2024-02-27 11:32] LABS: Iron 20 UG/DL (50-170); Total Iron Binding Capacity 196 UG/DL (228-460)
[2024-02-27 12:04] LABS: Vitamin B12 >3600.0 pg/mL (200.0-944.0)
[2024-02-27 12:08] LABS: Glucose,Whole Blood 86 mg/dL (70-110)
--- NOTE | 2024-02-27 13:16 | P.PN ---
Subjective Progress Note Date: 02/27/24 This is a 68-year-old female patient who became acutely short of breath. The patient was on 2 L of oxygen by nasal cannula. She became restless, agitated, and thrashing and at the same time she was noted to have labored breathing. At that point, the patient got transferred to the intensive care unit. Chest x-ray was consistent with CHF and the patient was given Lasix with some urine output. She remained in a normal sinus rhythm. She did not require any pressors. Overnight, the patient continued to have increased agitation and restlessness and narcotic withdrawal was suspected. The patient was given Dilaudid. The patient was also placed on Precedex and this morning the patient is on Precedex which is running at 1.4 mcg/kg/min. She seems to be much more calm and comfortable. She is still arousable upon stimulation. While on the BiPAP therapy, the patient has been maintained on a pressure of 14/6 with an FiO2 of 60%. Unable to obtain an adequate pulse ox. Based on that, blood gas was done and the patient was found to have a pH of 7.43 with a pCO2 of 42 and pO2 of 254 on above-mentioned BiPAP settings. Repeat chest x-ray from today is essentially unchanged and is consistent with cardiomegaly and mild pulm vas congestion. The patient remains on IV Lasix. I was concerned of a pulmonary embolism as the patient underwent a recent hip surgery for a hip fracture. I started the patient IV heparin pending further workup. The white cell count is at 5.6 with a hemoglobin 7.8 platelet count of 336. BUN is 12 with a creatinine of 0.55 resolved levels at 136. Noted the patient is status post mitral valve replacement and stress His valve repair that was done on 02/05/2024. She has CHF with preserved LV function and severe pulmonary hypertension. Postop, the patient encountered the third-degree AV block and the patient required a Micra AV device that was inserted on 02/08/2024. She has mild coronary artery disease. She has hyperlipidemia and COPD and she is on home O2. She also has history of acid reflux and gastritis. During this current admission, the patient had a nondisplaced right fibular fracture due to a fall and the patient underwent a ORIF of the right femoral neck fracture and the patient is currently postop day #1. Surgical wound site is dry clean and intact. No focal neurological deficit. Daughter is at the bedside. 02/25/2024, the patient is doing much better compared to yesterday. The patient is on Precedex which is running at 0.5 mcg/kg/min this being gradually weaned off. No significant agitation. She is awake and alert and communicating. No focal neurological deficits. CAT scan of the brain was done yesterday and showed no acute abnormalities. The patient was also taken off the BiPAP and the patient is currently on oxygen and 3 L with a pulse ox of 99 to 100%. Chest x- ray showed some mild pulmonary vascular congestion. Otherwise, no other acute abnormalities has been noted. Small right-sided pleural effusion was also noted. The patient's hemodynamics is stable. White cell count is 4.3, he was 7.5 with a platelet count of 305. BUN is 13 with a creatinine of 0.55 and a sodium levels at 138 with a potassium level of 3.8. Cardiac rhythm is sinus. No other significant events overnight. IV fluids are running at a rate of 75 cc an hour. The patient also is on IV Lasix. On 02/26/2024, the patient is calm and comfortable. The patient is awake. He has no specific complaints. The patient has been taken off the Precedex. The patient denies having any significant respiratory distress. She is currently on 3 L of oxygen by nasal cannula with a pulse ox of 99%. No chest pain. No cough or sputum production. No other significant events overnight. Her hemoglobin is down to 7 and a white cell count is at 5. Platelet count is 43. Rest of the electrolytes are all within normal limits. The patient has no focal neurological deficits. Repeat chest x-ray was done today and the patient continues to have some cardiomegaly and pulm vasculature is within normal limits. Some mild scattered infiltrates in lung base bilaterally. The patient has no issues with pain. No agitation. Her delirium is completely subsided. Pain is under good control. Echocardiogram was noted and the patient was found to have an ejection fraction of 35 to 40% and the patient has moderate to severe aortic regurgitation and mitral replacement valve with trace mitral regurgitation. On 02/27/2024, the patient is doing well with no specific complaints. Awake and alert. Communicating. No altered mentation. No significant respiratory distress. She remains on DuoNeb nebulized treatments [id number]. She is also on oxygen which is currently running at 3 L/min nasal cannula. Pulse ox is noted of 93%. The patient's white cell count is 5.4 with a hemoglobin of 8 and platelet count of 450. Serum iron level is at 20 consistent with iron deficiency. The patient's hemoglobin is currently at 8.0. Surgical wound site over the right hip area is dry clean intact. The patient remains on Lovenox for DVT prophylaxis. Rest of the medications unchanged. The patient is on Lasix 40 mg p.o. daily. No other significant events overnight. Objective - Vital Signs Vital signs: Vital Signs Temp 98.0 F 02/27/24 04:00 Pulse 91 02/27/24 07:00 Resp 20 02/27/24 07:00 BP 131/76 02/27/24 07:00 Pulse Ox 96 02/27/24 07:00 FiO2 40 02/25/24 20:00 Intake & Output 02/26/24 02/27/24 02/27/24 18:59 06:59 18:59 Intake Total 630 260 Output Total 1170 260 240 Balance -540 0 -240 Weight 61.7 kg 62.3 kg Intake: IV 30 260 Invasive Line 3 20 Sodium Chloride 0.9% 1, 30 240 000 ml @ 10 mls/hr IV . Q24H [facility] Rx#:[id number] Oral 600 Output: Urine 1170 260 240 Other: Voiding Method Indwelling Catheter Indwelling Catheter - Exam General Appearance, the patient is currently on Precedex and she is calm and comfortable on 3 liters oxygen by nasal cannula Head exam was generally normal. There was no scleral icterus or corneal arcus. Mucous membranes were moist. Neck was supple and without jugular venous distension, thyromegaly, or carotid bruits. Carotids were easily palpable bilaterally. There was no adenopathy. Lung sounds are diminished bilaterally and the patient has limited crackles lung base bilaterally. No wheezes. Cardiac exam revealed the PMI to be normally situated and sized. The rhythm was regular and no extrasystoles were noted during several minutes of auscultation. The first and second heart sounds were normal and physiologic splitting of the second heart sound was noted. There were no murmurs, rubs, clicks, or gallops. The patient has a thoracotomy scar which is dry clean and intact. Abdominal exam revealed normal bowel sounds. The abdomen was soft, non-tender, and without masses, organomegaly, or appreciable enlargement of the abdominal aorta. Examination of the extremities revealed easily palpable radial, femoral and pedal pulses. There was no cyanosis, clubbing or edema. Examination of the skin revealed no evidence of significant rashes, suspicious appearing nevi or other concerning lesions. Neurologically, alert and oriented x 3 without any focal neurological deficits - Labs CBC & Chem 7: 02/27/24 05:42 02/26/24 19:59 Labs: Abnormal Lab Results - Last 24 Hours (Table) 02/26/24 02/26/24 02/27/24 Range/Units 18:25 19:59 05:42 RBC 2.62 L (3.80-5.40) m/uL Hgb 8.0 L (11.4-16.0) gm/dL Hct 26.1 L (34.0-46.0) % MCHC 30.8 L (31.0-37.0) g/dL RDW 18.5 H (11.5-15.5) % Retic Count 3.7 H (0.5-2.0) % Potassium 3.1 L (3.5-5.1) mmol/L POC Glucose (mg/dL) 68 L (70-110) mg/dL Assessment and Plan Plan: Acute change in mental status with significant psychosis and possibly drug withdrawal from narcotics, recovered and the patient's mentation is back to normal Acute hypoxic respiratory failure, currently off the BiPAP and the patient currently on 3 liters of oxygen nasal cannula Fall from standing, status post right femoral neck fracture, status post in situ screw fixation right femoral neck fracture by Dr. Mendoza, the patient is postop day # 4, no issues with pain Pain secondary to above, the patient has chronic back pain dependent on [place] on outpatient basis. Anemia, expected as part of recovery after open heart surgery History of severe mitral regurgitation, moderate to severe tricuspid regurgitation per ENRIQUE, status post mitral valve replacement, tricuspid valve repair 02/05/24 Severe pulmonary hypertension Chronic heart failure with preserved left ventricular systolic function, EF 35% and the patient has evidence of moderate aortic regurgitation with trace mitral regurgitation and this is a postop echocardiogram that was done On 02/24/2024. As mentioned, the patient ejection fraction is in the order of 35 to 40%. The patient has moderate to severe aortic regurgitation and trace mitral regurgitation. Third-degree heart block, status post Micra AV device 02/08/24 Mild CAD Hyperlipidemia, treated COPD on home oxygen at night and PRN GERD, suspected stress gastritis Previous tobacco dependence, quit > 1 month ago, [id number] history Occasional marijuana use Chronic narcotic dependence Plan Continue [place] for pain control, CAT scan of the brain has been negative Mental status is normal Lovenox for DVT prophylaxis Change IV fluids to KVO Encourage oral intake Lasix 40 mg p.o. daily Will transfer the patient to the medical surgical floor Will continue to follow
--- NOTE | 2024-02-27 13:31 | P.PN ---
Subjective Progress Note Date: 02/27/24 PROGRESS NOTE The patient is a 68-year-old female status post mitral valve replacement with tricuspid valve repair and closure of the left atrial appendage performed on February 04 for symptomatic progressive MR who was readmitted to the hospital after a fall and a fractured hip. Last night she became more dyspneic, agitated, requiring BiPAP and transferred to the ICU. She is sedated on BiPAP, in sinus mechanism. She has underwent surgical intervention for her hip. She had no episodes of hypotension or malignant arrhythmia postprocedure. Her daughter is present today and apparently the patient had issues with narcotic abuse in the past and she is concerned about her receiving narcotics. Preo peratively her low ventricle systolic function was normal and there was no evidence of obstructive CAD. Her D-dimer were elevated and there was a question of pulmonary embolism for which she was started on IV heparin February 24: The patient is sedated, she was agitated earlier. She is off IV heparin. Hemodynamically she is stable. There is no evidence of malignant arrhythmia. She is undergoing an EEG. Her urinary output has been stable. There is no episodes of hypotension. February 25: The patient is awake, alert in sinus mechanism. She denies any chest discomfort, dizziness or palpitations. She has discomfort at the hip at the site of surgery. She denies any dizziness or palpitations. She is on nasal cannula. Her urinary output is stable. She denies any nausea or vomiting. Her echocardiogram showed an ejection fraction of 35 to 40% with moderate severe aortic regurgitation and mild tricuspid regurgitation. Her systolic function preoperatively was reported to be normal February 26: The patient is feeling well this morning, she is hemodynamically stable in sinus mechanism. She has no chest discomfort, dizziness or palpitations. She denies any nausea or vomiting. Hemodynamically she is stable. She is awake and alert and the confusion resolved. Medications: Aspirin, Lipitor 40 mg daily, citalopram, Plavix 75 mg daily, furosemide 40 mg daily, losartan 12.5 mg daily, Adderall 10 mg twice a day, Farxiga 10 mg daily, spironolactone 25 mg daily PHYSICAL EXAMINATION: Blood pressure 129/69 heart rate 84 LUNGS: Clear to auscultation anteriorly HEART: Regular rate and rhythm, S1, S2. No S3. Systolic ejection murmur ABDOMEN: Soft, nontender, no organomegaly EXTREMETIES: No edema LAB: Hemoglobin 8, WBC 5.4, IMPRESSION: 1. Respiratory failure, stable probably related to narcotics, resolved 2. Status post mitral valve replacement and tricuspid valve repair 3. Status post pacemaker implantation 4. History of chronic pain and narcotic use 5. Status post fall and fractured hip, status post surgery 6. Confusion, improved 7. Cardiomyopathy, noted postoperatively PLAN: 1. Add low-dose beta-jose 2. Follow hemoglobin and renal function 3. Increase physical activity as tolerated after her surgery 4. Consider repeating limited echo prior to discharge to further evaluate ejection fraction in view of the significant changes Objective - Vital Signs Vital signs: Vital Signs Temp 98.0 F 02/27/24 04:00 Pulse 84 02/27/24 11:34 Resp 12 02/27/24 11:00 BP 129/69 02/27/24 11:00 Pulse Ox 94 L 02/27/24 11:00 FiO2 40 02/25/24 20:00 Intake & Output 02/26/24 02/27/24 02/27/24 18:59 06:59 18:59 Intake Total 630 260 120 Output Total 8601 448 6733 Balance -540 0 -1430 Weight 61.7 kg 62.3 kg Intake: IV 30 260 120 Invasive Line 3 20 10 Sodium Chloride 0.9% 1, 30 240 110 000 ml @ 10 mls/hr IV . Q24H [facility] Rx#:[id number] Oral 600 Output: Urine 5204 119 8211 Other: Voiding Method Indwelling Catheter Indwelling Catheter Indwelling Catheter - Labs CBC & Chem 7: 02/27/24 05:42 02/26/24 19:59 Labs: Abnormal Lab Results - Last 24 Hours (Table) 02/26/24 02/26/24 02/27/24 Range/Units 18:25 19:59 00:32 RBC (3.80-5.40) m/uL Hgb (11.4-16.0) gm/dL Hct (34.0-46.0) % MCHC (31.0-37.0) g/dL RDW (11.5-15.5) % Retic Count (0.5-2.0) % Potassium 3.1 L (3.5-5.1) mmol/L POC Glucose (mg/dL) 68 L (70-110) mg/dL Iron (50-170) UG/DL TIBC (228-460) UG/DL % Saturation (12.00-45.00) Transferrin (204.0-354.0) mg/dL Ferritin 3228.0 H (10.0-291.0) ng/mL Vitamin B12 (200.0-944.0) pg/mL 02/27/24 02/27/24 Range/Units 05:42 05:42 RBC 2.62 L (3.80-5.40) m/uL Hgb 8.0 L (11.4-16.0) gm/dL Hct 26.1 L (34.0-46.0) % MCHC 30.8 L (31.0-37.0) g/dL RDW 18.5 H (11.5-15.5) % Retic Count 3.7 H (0.5-2.0) % Potassium (3.5-5.1) mmol/L POC Glucose (mg/dL) (70-110) mg/dL Iron 20 L (50-170) UG/DL TIBC 196 L (228-460) UG/DL % Saturation 10.20 L (12.00-45.00) Transferrin 140.0 L (204.0-354.0) mg/dL Ferritin (10.0-291.0) ng/mL Vitamin B12 >3600.0 H (200.0-944.0) pg/mL
[2024-02-27 14:32] LABS: African American GFR (CKD) >90 (>60 ml/min/1.73 sqM); Anion Gap 5 mmol/L; Blood Urea Nitrogen 8 mg/dL (7-17); Calcium 8.6 mg/dL (8.4-10.2); Carbon Dioxide 37 mmol/L (22-30); Chloride 96 mmol/L (98-107); Glucose 97 mg/dL (74-99); Non-African American GFR(CKD) >90 (>60 ml/min/1.73 sqM); Potassium 3.4 mmol/L (3.5-5.1); Sodium 138 mmol/L (137-145)
[2024-02-27 15:19] LABS: Calcium 8.4 mg/dL (8.7-10.3); Carbon Dioxide 31.6 mmol/L (21.6-31.8); Chloride 99 mmol/L (96-109); Glucose 79 mg/dL (70-110); Potassium 4.4 mmol/L (3.5-5.5); Sodium 141 mmol/L (135-145)
[2024-02-27] MEDS ORDERED: Potassium Replacement Protocol 1 EACH MISC MISCELLANE PRN (16:25)
[2024-02-27] MEDS: POTASSIUM BICARBONATE/CIT AC 20 MEQ TABLET.EFF NG-TUBE SCH (16:39)
[2024-02-27] MEDS: METOPROLOL SUCCINATE (ER) 25 MG TAB.ER.24H PO SCH (16:40)
[2024-02-28 00:19] LABS: Glucose,Whole Blood 80 mg/dL (70-110)
[2024-02-28 06:17] LABS: Glucose,Whole Blood 99 mg/dL (70-110)
[2024-02-28 07:47] LABS: African American GFR (CKD) >90 (>60 ml/min/1.73 sqM); Blood Urea Nitrogen 11 mg/dL (7-17); Calcium 8.5 mg/dL (8.4-10.2); Chloride 93 mmol/L (98-107); Glucose 83 mg/dL (74-99); Non-African American GFR(CKD) >90 (>60 ml/min/1.73 sqM); Potassium 3.9 mmol/L (3.5-5.1); Sodium 137 mmol/L (137-145)
[2024-02-28 07:57] LABS: Anion Gap 9 mmol/L; Carbon Dioxide 35 mmol/L (22-30)
[2024-02-28 11:11] LABS: Glucose,Whole Blood 79 mg/dL (70-110)
--- NOTE | 2024-02-28 11:49 | P.PN ---
Subjective HISTORY OF PRESENT ILLNESS: This is a 68-year-old female with a past medical history significant for valvular heart disease with recent mitral valve replacement and tricuspid valve repair, COPD on home oxygen, third-degree heart block with Micra device, mild CAD, and hyperlipidemia. Patient follows in the office with Dr. Ordaz. We have been asked to see the patient in consultation for right hip fracture with recent open heart surgery. Patient examined at the bedside in the emergency room. Patient was admitted to the hospital earlier this month and underwent bioprosthetic mitral valve replacement and tricuspid valve repair on 02/05/2024. The patient also developed complete heart block and underwent Micra device on 02/08/2024. The patient was discharged to [facility] in stable condition. She states that she completed rehab and has been at home recovering for the past week. She states that she lives alone and has been getting around her house well. She states that she was wearing a pair of slippers which caused her to lose her balance and fall. She denies losing consciousness. She denied having any chest pain or shortness of breath. The patient was found to have a right hip fracture and is scheduled to undergo surgical intervention this afternoon with orthopedics. DIAGNOSTICS: - EKG reveals paced rhythm. - Chest xray small bilateral pleural effusions with mild right lower lobe infiltrate. Correlate for atelectasis. - Laboratory data: WBC 6.2. Hemoglobin 8.1. Platelet count 306. Sodium 136. Potassium 3.2. BUN 13. Creatinine 0.60. - Current home cardiac medications include aspirin 325 mg daily, Lipitor 40 mg at night, losartan 12.5 mg daily, Lasix 40 mg daily, Plavix 75 mg daily - Limited echo completed on 02/10/2024 revealed minimal pericardial effusion - ENRIQUE performed in December 2023 EF 55 to 60%, severe MR, moderate to severe TR, moderate AI, severe pulmonary hypertension - Cardiac catheterization history: December 2023 with no significant CAD February 24: The patient is sedated, she was agitated earlier. She is off IV heparin. Hemodynamically she is stable. There is no evidence of malignant arrhythmia. She is undergoing an EEG. Her urinary output has been stable. There is no episodes of hypotension. February 25: The patient is awake, alert in sinus mechanism. She denies any chest discomfort, dizziness or palpitations. She has discomfort at the hip at the site of surgery. She denies any dizziness or palpitations. She is on nasal cannula. Her urinary output is stable. She denies any nausea or vomiting. Her echocardiogram showed an ejection fraction of 35 to 40% with moderate severe aortic regurgitation and mild tricuspid regurgitation. Her systolic function preoperatively was reported to be normal February 26: The patient is feeling well this morning, she is hemodynamically stable in sinus mechanism. She has no chest discomfort, dizziness or palpitations. She denies any nausea or vomiting. Hemodynamically she is stable. She is awake and alert and the confusion resolved. 02/28/2024 Patient examined this morning at the bedside. Patient currently denies chest pain or pressure. She denies shortness of breath. She is maintaining sinus mechanism. Vital signs are stable. Blood pressure 104/62. She states that she has not been out of bed yet this morning. PHYSICAL EXAM: VITAL SIGNS: Reviewed. GENERAL: Well-developed in no acute distress. HEENT: Head is normocephalic. Pupils are equal, round. Sclerae anicteric. Mucous membranes of the mouth are moist. Neck supple. No JVD or thyromegaly LUNGS: Respirations even and unlabored. Lungs clear to auscultation. HEART: Regular rate and rhythm. S1 and S2 heard. Systolic murmur noted. ABDOMEN: Soft. Nondistended. Nontender. EXTREMITIES: Normal range of motion. No clubbing or cyanosis. Peripheral pulses intact. No lower extremity edema NEUROLOGIC: Awake and alert. Oriented x 3. ASSESSMENT: Right hip fracture status post mechanical fall, status post surgical intervention Acute hypoxic respiratory failure quiring BiPAP, likely related to narcotics, resolved Valvular heart disease, status post bioprosthetic mitral valve replacement and tricuspid valve repair, 02/05/2024 Complete heart block status post Micra device, 02/08/2024 Anemia COPD on home oxygen Severe pulmonary hypertension Hyperlipidemia Former nicotine dependence Postoperative cardiomyopathy, etiology unclear PLAN: Continue current cardiac medications Continue telemetry monitoring Increase activity as tolerated Repeat limited echo has been performed. Report not available at this time. Will discuss with echo team tomorrow to manually push report through to [employer]. Further recommendations pending patient course Nurse practitioner note has been reviewed by physician. Signing provider agrees with the documented findings, assessment, and plan of care documented by [employer] [facility] [employer] as a scribe. Objective - Vital Signs Vital signs: Vital Signs Temp 98.4 F 02/28/24 04:07 Pulse 88 02/28/24 11:25 Resp 16 02/28/24 11:12 BP 104/62 02/28/24 11:12 Pulse Ox 95 02/28/24 11:14 FiO2 40 02/25/24 20:00 Intake & Output 02/27/24 02/28/24 02/28/24 18:59 06:59 18:59 Intake Total 130 20 0 Output Total 2400 Balance -2270 20 0 Weight 58.3 kg Intake: IV 130 20 Invasive Line 3 20 20 Sodium Chloride 0.9% 1, 110 000 ml @ 10 mls/hr IV . Q24H [facility] Rx#:[id number] Oral 0 Output: Urine 2400 Other: Voiding Method Indwelling Catheter Indwelling Catheter # Voids 1 # Bowel Movements 1 1 1 - Labs CBC & Chem 7: 02/27/24 05:42 02/28/24 06:42 Labs: Abnormal Lab Results - Last 24 Hours (Table) 02/27/24 02/27/24 02/27/24 Range/Units 00:32 05:42 05:42 Potassium (3.5-5.1) mmol/L Chloride (98-107) mmol/L Carbon Dioxide (22-30) mmol/L BUN 7.0 L (9.0-27.0) mg/dL Creatinine 0.5 L (0.6-1.5) mg/dL Calcium 8.4 L (8.7-10.3) mg/dL Ferritin 3228.0 H (10.0-291.0) ng/mL Vitamin B12 >3600.0 H (200.0-944.0) pg/mL 02/27/24 02/28/24 Range/Units 13:54 06:42 Potassium 3.4 L (3.5-5.1) mmol/L Chloride 96 L 93 L (98-107) mmol/L Carbon Dioxide 37 H 35 H (22-30) mmol/L BUN (9.0-27.0) mg/dL Creatinine 0.45 L (0.6-1.5) mg/dL Calcium (8.7-10.3) mg/dL Ferritin (10.0-291.0) ng/mL Vitamin B12 (200.0-944.0) pg/mL
--- NOTE | 2024-02-28 13:12 | P.PN ---
Subjective Progress Note Date: 02/28/24 This is a 68-year-old female patient who became acutely short of breath. The patient was on 2 L of oxygen by nasal cannula. She became restless, agitated, and thrashing and at the same time she was noted to have labored breathing. At that point, the patient got transferred to the intensive care unit. Chest x-ray was consistent with CHF and the patient was given Lasix with some urine output. She remained in a normal sinus rhythm. She did not require any pressors. Overnight, the patient continued to have increased agitation and restlessness and narcotic withdrawal was suspected. The patient was given Dilaudid. The patient was also placed on Precedex and this morning the patient is on Precedex which is running at 1.4 mcg/kg/min. She seems to be much more calm and comfortable. She is still arousable upon stimulation. While on the BiPAP therapy, the patient has been maintained on a pressure of 14/6 with an FiO2 of 60%. Unable to obtain an adequate pulse ox. Based on that, blood gas was done and the patient was found to have a pH of 7.43 with a pCO2 of 42 and pO2 of 254 on above-mentioned BiPAP settings. Repeat chest x-ray from today is essentially unchanged and is consistent with cardiomegaly and mild pulm vas congestion. The patient remains on IV Lasix. I was concerned of a pulmonary embolism as the patient underwent a recent hip surgery for a hip fracture. I started the patient IV heparin pending further workup. The white cell count is at 5.6 with a hemoglobin 7.8 platelet count of 336. BUN is 12 with a creatinine of 0.55 resolved levels at 136. Noted the patient is status post mitral valve replacement and stress His valve repair that was done on 02/05/2024. She has CHF with preserved LV function and severe pulmonary hypertension. Postop, the patient encountered the third-degree AV block and the patient required a Micra AV device that was inserted on 02/08/2024. She has mild coronary artery disease. She has hyperlipidemia and COPD and she is on home O2. She also has history of acid reflux and gastritis. During this current admission, the patient had a nondisplaced right fibular fracture due to a fall and the patient underwent a ORIF of the right femoral neck fracture and the patient is currently postop day #1. Surgical wound site is dry clean and intact. No focal neurological deficit. Daughter is at the bedside. 02/25/2024, the patient is doing much better compared to yesterday. The patient is on Precedex which is running at 0.5 mcg/kg/min this being gradually weaned off. No significant agitation. She is awake and alert and communicating. No focal neurological deficits. CAT scan of the brain was done yesterday and showed no acute abnormalities. The patient was also taken off the BiPAP and the patient is currently on oxygen and 3 L with a pulse ox of 99 to 100%. Chest x- ray showed some mild pulmonary vascular congestion. Otherwise, no other acute abnormalities has been noted. Small right-sided pleural effusion was also noted. The patient's hemodynamics is stable. White cell count is 4.3, he was 7.5 with a platelet count of 305. BUN is 13 with a creatinine of 0.55 and a sodium levels at 138 with a potassium level of 3.8. Cardiac rhythm is sinus. No other significant events overnight. IV fluids are running at a rate of 75 cc an hour. The patient also is on IV Lasix. On 02/26/2024, the patient is calm and comfortable. The patient is awake. He has no specific complaints. The patient has been taken off the Precedex. The patient denies having any significant respiratory distress. She is currently on 3 L of oxygen by nasal cannula with a pulse ox of 99%. No chest pain. No cough or sputum production. No other significant events overnight. Her hemoglobin is down to 7 and a white cell count is at 5. Platelet count is 43. Rest of the electrolytes are all within normal limits. The patient has no focal neurological deficits. Repeat chest x-ray was done today and the patient continues to have some cardiomegaly and pulm vasculature is within normal limits. Some mild scattered infiltrates in lung base bilaterally. The patient has no issues with pain. No agitation. Her delirium is completely subsided. Pain is under good control. Echocardiogram was noted and the patient was found to have an ejection fraction of 35 to 40% and the patient has moderate to severe aortic regurgitation and mitral replacement valve with trace mitral regurgitation. On 02/27/2024, the patient is doing well with no specific complaints. Awake and alert. Communicating. No altered mentation. No significant respiratory distress. She remains on DuoNeb nebulized treatments [id number]. She is also on oxygen which is currently running at 3 L/min nasal cannula. Pulse ox is noted of 93%. The patient's white cell count is 5.4 with a hemoglobin of 8 and platelet count of 450. Serum iron level is at 20 consistent with iron deficiency. The patient's hemoglobin is currently at 8.0. Surgical wound site over the right hip area is dry clean intact. The patient remains on Lovenox for DVT prophylaxis. Rest of the medications unchanged. The patient is on Lasix 40 mg p.o. daily. No other significant events overnight. 02/28/2024, patient is transferred out of the intensive care unit. Doing well with no specific complaints. No chest pain. No altered mentation. No significant shortness of breath. She is feeling weak and debilitated and the patient would benefit from rehabilitation. Otherwise, no other significant events overnight. She is currently on 2 L of oxygen by nasal cannula with a pulse ox of 95%. Sodium is at 137, bicarb 35, BUN is 11 with a creatinine of 0.5. The patient DuoNeb nebulized treatments [id number]. The patient is on Stewart for pain control. She is on metoprolol 25 mg twice a day, Lasix 40 mg p.o. daily and Aldactone 25 mg p.o. daily. She remains on aspirin. She is on Lovenox 40 mg subcu for DVT prophylaxis. Objective - Vital Signs Vital signs: Vital Signs Temp 98.4 F 02/28/24 04:07 Pulse 84 02/28/24 08:27 Resp 16 02/28/24 08:27 BP 103/64 02/28/24 08:27 Pulse Ox 87 L 02/28/24 08:42 FiO2 40 02/25/24 20:00 Intake & Output 02/27/24 02/28/24 02/28/24 18:59 06:59 18:59 Intake Total 130 20 0 Output Total 2400 Balance -2270 20 0 Weight 58.3 kg Intake: IV 130 20 Invasive Line 3 20 20 Sodium Chloride 0.9% 1, 110 000 ml @ 10 mls/hr IV . Q24H [facility] Rx#:[id number] Oral 0 Output: Urine 2400 Other: Voiding Method Indwelling Catheter Indwelling Catheter # Voids 1 # Bowel Movements 1 1 - Exam General Appearance, the patient is currently on Precedex and she is calm and comfortable on 3 liters oxygen by nasal cannula Head exam was generally normal. There was no scleral icterus or corneal arcus. Mucous membranes were moist. Neck was supple and without jugular venous distension, thyromegaly, or carotid bruits. Carotids were easily palpable bilaterally. There was no adenopathy. Lung sounds are diminished bilaterally and the patient has limited crackles lung base bilaterally. No wheezes. Cardiac exam revealed the PMI to be normally situated and sized. The rhythm was regular and no extrasystoles were noted during several minutes of auscultation. The first and second heart sounds were normal and physiologic splitting of the second heart sound was noted. There were no murmurs, rubs, clicks, or gallops. The patient has a thoracotomy scar which is dry clean and intact. Abdominal exam revealed normal bowel sounds. The abdomen was soft, non-tender, and without masses, organomegaly, or appreciable enlargement of the abdominal aorta. Examination of the extremities revealed easily palpable radial, femoral and pedal pulses. There was no cyanosis, clubbing or edema. Examination of the skin revealed no evidence of significant rashes, suspicious appearing nevi or other concerning lesions. Neurologically, alert and oriented x 3 without any focal neurological deficits - Labs CBC & Chem 7: 02/27/24 05:42 02/28/24 06:42 Labs: Abnormal Lab Results - Last 24 Hours (Table) 02/27/24 02/27/24 02/27/24 Range/Units 00:32 05:42 05:42 Potassium (3.5-5.1) mmol/L Chloride (98-107) mmol/L Carbon Dioxide (22-30) mmol/L BUN 7.0 L (9.0-27.0) mg/dL Creatinine 0.5 L (0.6-1.5) mg/dL Calcium 8.4 L (8.7-10.3) mg/dL Iron 20 L (50-170) UG/DL TIBC 196 L (228-460) UG/DL % Saturation 10.20 L (12.00-45.00) Transferrin 140.0 L (204.0-354.0) mg/dL Ferritin 3228.0 H (10.0-291.0) ng/mL Vitamin B12 >3600.0 H (200.0-944.0) pg/mL 02/27/24 02/28/24 Range/Units 13:54 06:42 Potassium 3.4 L (3.5-5.1) mmol/L Chloride 96 L 93 L (98-107) mmol/L Carbon Dioxide 37 H 35 H (22-30) mmol/L BUN (9.0-27.0) mg/dL Creatinine 0.45 L (0.6-1.5) mg/dL Calcium (8.7-10.3) mg/dL Iron (50-170) UG/DL TIBC (228-460) UG/DL % Saturation (12.00-45.00) Transferrin (204.0-354.0) mg/dL Ferritin (10.0-291.0) ng/mL Vitamin B12 (200.0-944.0) pg/mL Assessment and Plan Plan: Acute change in mental status with significant psychosis and possibly drug withdrawal from narcotics, recovered and the patient's mentation is back to normal Acute hypoxic respiratory failure, currently off the BiPAP and the patient currently on 2 liters of oxygen nasal cannula Fall from standing, status post right femoral neck fracture, status post in situ screw fixation right femoral neck fracture by Dr. Mendoza, the patient is postop day # 5, no issues with pain Pain secondary to above, the patient has chronic back pain dependent on Stewart on outpatient basis. Anemia, expected as part of recovery after open heart surgery History of severe mitral regurgitation, moderate to severe tricuspid regurgitation per ENRIQUE, status post mitral valve replacement, tricuspid valve repair 02/05/24 Severe pulmonary hypertension Chronic heart failure with preserved left ventricular systolic function, EF 35% and the patient has evidence of moderate aortic regurgitation with trace mitral regurgitation and this is a postop echocardiogram that was done On 02/24/2024. As mentioned, the patient ejection fraction is in the order of 35 to 40%. The patient has moderate to severe aortic regurgitation and trace mitral regurgitation. Third-degree heart block, status post Micra AV device 02/08/24 Mild CAD Hyperlipidemia, treated COPD on home oxygen at night and PRN GERD, suspected stress gastritis Previous tobacco dependence, quit > 1 month ago, [id number] history Occasional marijuana use Chronic narcotic dependence Plan Continue Stewart for pain control, CAT scan of the brain has been negative Mental status is normal Lovenox for DVT prophylaxis Change IV fluids to KVO Encourage oral intake Continue aspirin Continue metoprolol Lasix 40 mg p.o. daily and Aldactone 25 mg p.o. per day Patient is currently on the medical floor PT OT evaluation Will continue to follow
[2024-02-28 13:16] LABS: Anisocytosis Slight; HCT 28.3 % (34.0-46.0); HGB 8.4 gm/dL (11.4-16.0); Hypochromasia Marked; MCH 30.2 pg (25.0-35.0); MCHC 29.7 g/dL (31.0-37.0); MCV 101.7 fL (80.0-100.0); Macrocytosis Moderate; Platelet Count 507 k/uL (150-450); RBC 2.78 m/uL (3.80-5.40); RDW 17.5 % (11.5-15.5); WBC 5.8 k/uL (3.8-10.6)
[2024-02-28 14:44] LABS: Glucose,Whole Blood 91 mg/dL (70-110)
[2024-02-28 16:23] LABS: Glucose,Whole Blood 107 mg/dL (70-110)
[2024-02-28 19:53] LABS: Glucose,Whole Blood 106 mg/dL (70-110)
[2024-02-28 23:52] LABS: Glucose,Whole Blood 97 mg/dL (70-110)
[2024-02-29 05:58] LABS: Glucose,Whole Blood 79 mg/dL (70-110)
[2024-02-29 11:21] LABS: Glucose,Whole Blood 80 mg/dL (70-110)
--- NOTE | 2024-02-29 11:24 | P.PN ---
Subjective Progress Note Date: 02/28/24 Principal diagnosis: Right hip fracture due to mechanical fall Status post mitral valve replacement for valvular heart disease bioprosthetic valve Status post tricuspid valve repair Complete heart block Anemia of chronic disease COPD Pulmonary hypertension Dyslipidemia February 28, 2024, patient seen and examined during rounds labs reviewed medications and care plan discussed, respiratory status stable now, nausea vomiting improved breathing more comfortably, patient has been moved out of the ICU remains on 2 L oxygen saturation stable 95% remains afebrile, continue increase activity as tolerated follow-up as outpatient February 27, 2024, patient seen eval examined while covering for Dr. Raheem Mujica, patient is well-known to me from the office. She has end-stage COPD due to increasing shortness of breath transferred to the ICU related to CHF with fluid overload responded well with Lasix. Patient was restless agitated requiring Precedex drip and BiPAP support, now off of it. Patient was started on IV heparin for concern of pulmonary embolism. Patient had a echocardiogram revealed ejection fraction of 35 to 40% and moderate to severe aortic regur gitation currently patient is afebrile with stable hemodynamic blood pressure 135/2 74, on 3 L nasal cannula tolerating well oxygen saturation is mid 90s labs done today hemoglobin improved to 8, platelet count 450 Objective - Vital Signs Vital signs: Vital Signs Temp 98.5 F 02/28/24 14:48 Pulse 84 02/28/24 15:22 Resp 16 02/28/24 14:48 BP 132/75 02/28/24 14:48 Pulse Ox 97 02/28/24 14:48 FiO2 40 02/25/24 20:00 Intake & Output 02/27/24 02/28/24 02/28/24 18:59 06:59 18:59 Intake Total 130 20 222 Output Total 2400 Balance -2270 20 222 Weight 58.3 kg Intake: IV 130 20 Invasive Line 3 20 20 Sodium Chloride 0.9% 1, 110 000 ml @ 10 mls/hr IV . Q24H [facility] Rx#:[id number] Oral 222 Output: Urine 2400 Other: Voiding Method Indwelling Catheter Indwelling Catheter # Voids 1 # Bowel Movements 1 1 1 - Exam General appearance: Present: average body habitus, cooperative, disheveled - EENT Eyes: Present: EOMI, PERRLA Ears: bilateral: normal - Neck Neck: Present: normal ROM Carotids: bilateral: upstroke normal Thyroid: bilateral: normal size - Respiratory Respiratory: bilateral: CTA, diminished - Cardiovascular Rhythm: regular Heart sounds: normal: S1, S2 - Gastrointestinal General gastrointestinal: Present: soft - Neurologic Neurologic: Present: CNII-XII intact - Musculoskeletal Musculoskeletal: Present: gait normal, generalized weakness, strength equal bilaterally - Psychiatric Psychiatric: Present: A&O x's 3, appropriate affect, intact judgment & insight - Labs CBC & Chem 7: 02/28/24 06:42 02/28/24 06:42 Labs: Abnormal Lab Results - Last 24 Hours (Table) 02/28/24 02/28/24 Range/Units 06:42 06:42 RBC 2.78 L (3.80-5.40) m/uL Hgb 8.4 L (11.4-16.0) gm/dL Hct 28.3 L (34.0-46.0) % MCV 101.7 H (80.0-100.0) fL MCHC 29.7 L (31.0-37.0) g/dL RDW 17.5 H (11.5-15.5) % Plt Count 507 H (150-450) k/uL Chloride 93 L (98-107) mmol/L Carbon Dioxide 35 H (22-30) mmol/L Assessment and Plan Assessment: Acute on chronic hypoxic respiratory failure, continue supplemental oxygen as needed BiPAP End-stage COPD without exacerbation on bronchodilators supplemental oxygen, continue 3 L oxygen nasal cannula as needed BiPAP, hold on IV steroids Episode of altered mental status, awake and alert now off of Precedex, neurology following CT scan of the head is negative Status post fall and right femoral neck fracture, status post screw fixation by orthopedics Pulmonary hypertension group 3 Acute on chronic systolic heart failure cardiovascular services are following patient has significant valvular heart disease involving aortic mitral and tricuspid valve History of third-degree heart block with Micra AV device early January 2024 Dyslipidemia hypertension hypertensive cardiovascular disease continue expectant treatment DVT prophylaxis with Lovenox Take ulcer disease prophylaxis with PPI Plan: As above Time with Patient: Greater than 30
--- NOTE | 2024-02-29 12:08 | P.PN ---
Subjective Progress Note Date: 02/29/24 HISTORY OF PRESENT ILLNESS: This is a 68-year-old female with a past medical history significant for va lvular heart disease with recent mitral valve replacement and tricuspid valve repair, COPD on home oxygen, third-degree heart block with Micra device, mild CAD, and hyperlipidemia. Patient follows in the office with Dr. Ordaz. We have been asked to see the patient in consultation for right hip fracture with recent open heart surgery. Patient examined at the bedside in the emergency room. Patient was admitted to the hospital earlier this month and underwent bioprosthetic mitral valve replacement and tricuspid valve repair on 02/05/2024. The patient also developed complete heart block and underwent Micra device on 02/08/2024. The patient was discharged to [facility] in stable condition. She states t hat she completed rehab and has been at home recovering for the past week. She states that she lives alone and has been getting around her house well. She states that she was wearing a pair of slippers which caused her to lose her balance and fall. She denies losing consciousness. She denied having any chest pain or shortness of breath. The patient was found to have a right hip fracture and is scheduled to undergo surgical intervention this afternoon with orthopedics. DIAGNOSTICS: - EKG reveals paced rhythm. - Chest xray small bilateral pleural effusions with mild right lower lobe infilt rate. Correlate for atelectasis. - Laboratory data: WBC 6.2. Hemoglobin 8.1. Platelet count 306. Sodium 136. Potassium 3.2. BUN 13. Creatinine 0.60. - Current home cardiac medications include aspirin 325 mg daily, Lipitor 40 mg at night, losartan 12.5 mg daily, Lasix 40 mg daily, Plavix 75 mg daily - Limited echo completed on 02/10/2024 revealed minimal pericardial effusion - ENRIQUE performed in December 2023 EF 55 to 60%, severe MR, moderate to severe TR, moderate AI, severe pulmonary hypertension - Cardiac catheterization history: December 2023 with no significant CAD February 24: The patient is sedated, she was agitated earlier. She is off IV heparin. Hemodynamically she is stable. There is no evidence of malignant arrhythmia. She is undergoing an EEG. Her urinary output has been stable. There is no episodes of hypotension. February 25: The patient is awake, alert in sinus mechanism. She denies any chest discomfort, dizziness or palpitations. She has discomfort at the hip at the site of surgery. She denies any dizziness or palpitations. She is on nasal cannula. Her urinary output is stable. She denies any nausea or vomiting. Her echocardiogram showed an ejection fraction of 35 to 40% with moderate severe aortic regurgitation and mild tricuspid regurgitation. Her systolic function preoperatively was reported to be normal February 26: The patient is feeling well this morning, she is hemodynamically stable in sinus mechanism. She has no chest discomfort, dizziness or palpitations. She denies any nausea or vomiting. Hemodynamically she is stable. She is awake and alert and the confusion resolved. 02/28/2024 Patient examined this morning at the bedside. Patient currently denies chest pain or pressure. She denies shortness of breath. She is maintaining sinus mechanism. Vital signs are stable. Blood pressure 104/62. She states that she has not been out of bed yet this morning. 02/29/24 Patient seen and examined. She denies any chest pain or pressure. No shortness of breath or dizziness. Leg pain is stable. Hemoglobin 8.4, stable. She wants to get walking. PHYSICAL EXAM: VITAL SIGNS: Reviewed. GENERAL: Well-developed in no acute distress. HEENT: Head is normocephalic. Pupils are equal, round. Sclerae anicteric. Mucous membranes of the mouth are moist. LUNGS: Respirations even and unlabored. Lungs clear to auscultation. HEART: Regular rate and rhythm. S1 and S2 heard. Systolic murmur noted. Chest incision healing well. Heart hugger on. ABDOMEN: Soft. Nondistended. Nontender. EXTREMITIES: Normal range of motion. No clubbing or cyanosis. Peripheral pulses intact. No lower extremity edema. NEUROLOGIC: Awake and alert. Oriented x 3. ASSESSMENT: Right hip fracture status post mechanical fall, status post surgical inte rvention Acute hypoxic respiratory failure quiring BiPAP, likely related to narcotics, resolved Valvular heart disease, status post bioprosthetic mitral valve replacement and tricuspid valve repair, 02/05/2024 Complete heart block status post Micra device, 02/08/2024 Anemia COPD on home oxygen Severe pulmonary hypertension Hyperlipidemia Former nicotine dependence Postoperative cardiomyopathy, etiology unclear PLAN: Continue current cardiac medications. Continue telemetry monitoring. Increase activity as tolerated with PT/OT. Encouraged IS use. Repeat limited echo to re- eval EF, PENDING. Further recommendations pending patient course. Nurse practitioner note has been reviewed by physician. Signing provider agrees with the documented findings, assessment, and plan of care documented by STORES CLERK as a scribe. Objective - Vital Signs Vital signs: Vital Signs Temp 98.3 F 02/29/24 08:00 Pulse 90 02/29/24 08:00 Resp 16 02/29/24 08:00 BP 127/74 02/29/24 08:00 Pulse Ox 94 L 02/29/24 08:00 FiO2 40 02/25/24 20:00 Intake & Output 02/28/24 02/29/24 02/29/24 18:59 06:59 18:59 Intake Total 462 Balance 462 Intake: Oral 462 Other: Voiding Method Indwelling Catheter # Voids 2 1 # Bowel Movements 1 - Labs CBC & Chem 7: 02/28/24 06:42 02/28/24 06:42 Labs: Abnormal Lab Results - Last 24 Hours (Table) 02/27/24 02/28/24 Range/Units 05:42 06:42 RBC 2.78 L (3.80-5.40) m/uL Hgb 8.4 L (11.4-16.0) gm/dL Hct 28.3 L (34.0-46.0) % MCV 101.7 H (80.0-100.0) fL MCHC 29.7 L (31.0-37.0) g/dL RDW 17.5 H (11.5-15.5) % Plt Count 507 H (150-450) k/uL Total Protein (PEP) 5.0 L (6.2-8.2) g/dL
[2024-02-29 15:43] LABS: Albumin 2.66 g/dL (3.80-4.90); Gamma Globulin 0.28 g/dL (0.70-1.50)
[2024-02-29 16:06] LABS: Glucose,Whole Blood 104 mg/dL (70-110)
--- NOTE | 2024-02-29 17:28 | P.PN ---
Subjective Progress Note Date: 02/29/24 Principal diagnosis: Right hip fracture secondary to mechanical fall This is a 68-year-old female patient who became acutely short of breath. The patient was on 2 L of oxygen by nasal cannula. She became restless, agitated, and thrashing and at the same time she was noted to have labored breathing. At that point, the patient got transferred to the intensive care unit. Chest x-ray was consistent with CHF and the patient was given Lasix with some urine output. She remained in a normal sinus rhythm. She did not require any pressors. Overnight, the patient continued to have increased agitation and restlessness and narcotic withdrawal was suspected. The patient was given Dilaudid. The patient was also placed on Precedex and this morning the patient is on Precedex which is running at 1.4 mcg/kg/min. She seems to be much more calm and comfortable. She is still arousable upon stimulation. While on the BiPAP therapy, the patient has been maintained on a pressure of 14/6 with an FiO2 of 60%. Unable to obtain an adequate pulse ox. Based on that, blood gas was done and the patient was found to have a pH of 7.43 with a pCO2 of 42 and pO2 of 254 on above-mentioned BiPAP settings. Repeat chest x-ray from today is essentially unchanged and is consistent with cardiomegaly and mild pulm vas congestion. The patient remains on IV Lasix. I was concerned of a pulmonary embolism as the patient underwent a recent hip surgery for a hip fracture. I started the p atient IV heparin pending further workup. The white cell count is at 5.6 with a hemoglobin 7.8 platelet count of 336. BUN is 12 with a creatinine of 0.55 resolved levels at 136. Noted the patient is status post mitral valve replacement and stress His valve repair that was done on 02/05/2024. She has CHF with preserved LV function and severe pulmonary hypertension. Postop, the patient encountered the third-degree AV block and the patient required a Micra AV device that was inserted on 02/08/2024. She has mild coronary artery disease. She has hyperlipidemia and COPD and she is on home O2. She also has history of acid reflux and gastritis. During this current admission, the patient had a n ondisplaced right fibular fracture due to a fall and the patient underwent a ORIF of the right femoral neck fracture and the patient is currently postop day #1. Surgical wound site is dry clean and intact. No focal neurological deficit. Daughter is at the bedside. 02/25/2024, the patient is doing much better compared to yesterday. The patient is on Precedex which is running at 0.5 mcg/kg/min this being gradually weaned off. No significant agitation. She is awake and alert and communicating. No focal neurological deficits. CAT scan of the brain was done yesterday and showed no acute abnormalities. The patient was also taken off the BiPAP and the patient is currently on oxygen and 3 L with a pulse ox of 99 to 100%. Chest x- ray showed some mild pulmonary vascular congestion. Otherwise, no other acute abnormalities has been noted. Small right-sided pleural effusion was also note d. The patient's hemodynamics is stable. White cell count is 4.3, he was 7.5 with a platelet count of 305. BUN is 13 with a creatinine of 0.55 and a sodium levels at 138 with a potassium level of 3.8. Cardiac rhythm is sinus. No other significant events overnight. IV fluids are running at a rate of 75 cc an hour. The patient also is on IV Lasix. On 02/26/2024, the patient is calm and comfortable. The patient is awake. He has no specific complaints. The patient has been taken off the Precedex. The patient denies having any significant respiratory distress. She is currently on 3 L of oxygen by nasal cannula with a pulse ox of 99%. No chest pain. No cough or sputum production. No other significant events overnight. Her hemoglobin is down to 7 and a white cell count is at 5. Platelet count is 43. Rest of the electrolytes are all within normal limits. The patient has no focal neurological deficits. Repeat chest x-ray was done today and the patient continues to have some cardiomegaly and pulm vasculature is within normal limits. Some mild scattered infiltrates in lung base bilaterally. The patient has no issues with pain. No agitation. Her delirium is completely subsided. Pain is under good control. Echocardiogram was noted and the patient was found to have an ejection fraction of 35 to 40% and the patient has moderate to severe aortic regurgitation and mitral replacement valve with trace mitral regurgitation. On 02/27/2024, the patient is doing well with no specific complaints. Awake and alert. Communicating. No altered mentation. No significant respiratory distress. She remains on DuoNeb nebulized treatments [id number]. She is also on oxygen which is currently running at 3 L/min nasal cannula. Pulse ox is noted of 93%. The patient's white cell count is 5.4 with a hemoglobin of 8 and platelet count of 450. Serum iron level is at 20 consistent with iron deficiency. The patient's hemoglobin is currently at 8.0. Surgical wound site over the right hip area is dry clean intact. The patient remains on Lovenox for DVT prophylaxis. Rest of the medications unchanged. The patient is on Lasix 40 mg p.o. daily. No other significant events overnight. 02/28/2024, patient is transferred out of the intensive care unit. Doing well with no specific complaints. No chest pain. No altered mentation. No significant shortness of breath. She is feeling weak and debilitated and the patient would benefit from rehabilitation. Otherwise, no other significant events overnight. She is currently on 2 L of oxygen by nasal cannula with a pulse ox of 95%. Sodium is at 137, bicarb 35, BUN is 11 with a creatinine of 0.5. The patient DuoNeb nebulized treatments [id number]. The patient is on [place]land for pain control. She is on metoprolol 25 mg twice a day, Lasix 40 mg p.o. daily and Aldactone 25 mg p.o. daily. She remains on aspirin. She is on Lovenox 40 mg subcu for DVT prophylaxis. Patient was seen today on 02/29/24, patient is sitting at the bedside chair, does not seem to be in any distress, patient is status postsurgical repair of right hip fracture status post mechanical fall, patient is familiar to my service from her last admission for her mitral valve replacement and tricuspid valve repair on 02/05/2024. Pulmonary clifford the patient is doing great, no cough no wheezing no shortness of breath and she is on room air Objective - Vital Signs Vital signs: Vital Signs Temp 98.2 F 02/29/24 16:00 Pulse 88 02/29/24 16:17 Resp 16 02/29/24 16:17 BP 110/58 02/29/24 16:00 Pulse Ox 97 02/29/24 16:00 FiO2 40 02/25/24 20:00 Intake & Output 02/28/24 02/29/24 02/29/24 18:59 06:59 18:59 Intake Total 462 Balance 462 Weight 55.9 kg Intake: Oral 462 Other: Voiding Method Indwelling Catheter # Voids 2 1 # Bowel Movements 1 1 - Exam GENERAL: Reveals 68-year-old female in no distress HEENT: Head is normocephalic. Pupils are equal, round. Sclerae anicteric. Mucous membranes of the mouth are moist. Neck supple. No JVD or thyromegaly LUNGS: Symmetrical chest expansion clear bilaterally no crackles rhonchi or wheezes HEART: Regular rate and rhythm. S1 and S2 heard. Systolic murmur noted. ABDOMEN: Soft. Nondistended. Nontender. EXTREMITIES: Normal range of motion. No clubbing or cyanosis. Peripheral pulses intact. No lower extremity edema NEUROLOGIC: Awake and alert. Oriented x 3. No gross focal neurologic deficit Psychiatric: Normal mood affect and normal mental status examination. Skin: No rash - Labs CBC & Chem 7: 02/28/24 06:42 02/28/24 06:42 Labs: Abnormal Lab Results - Last 24 Hours (Table) 02/27/24 02/27/24 Range/Units 05:42 05:42 Total Protein (PEP) 5.0 L (6.2-8.2) g/dL Albumin (PEP) 2.66 L (3.80-4.90) g/dL [id number] 0.59 H (0.10-0.40) g/dL Gamma Globulins 0.28 L (0.70-1.50) g/dL RBC Folate 1,092 H (280 - 791) ng/mL Assessment and Plan Assessment: Impression: Right rib fractures secondary to mechanical fall status postn situ screw fixation right femoral neck fracture by Dr. Mendoza, the patient is postop day #6, Acute change in mental status with significant psychosis and possibly drug withdrawal from narcotics, recovered and the patient's mentation is back to normal Pain secondary to above, the patient has chronic back pain dependent on Eland on outpatient basis. Anemia, expected as part of recovery after open heart surgery History of severe mitral regurgitation, moderate to severe tricuspid regurgitation per ENRIQUE, status post mitral valve replacement, tricuspid valve repair 02/05/24 Severe pulmonary hypertension Chronic heart failure with preserved left ventricular systolic function, EF 35% and the patient has evidence of moderate aortic regurgitation with trace mitral regurgitation and this is a postop echocardiogram that was done On 02/24/2024. As mentioned, the patient ejection fraction is in the order of 35 to 40%. The patient has moderate to severe aortic regurgitation and trace mitral regurgitation. Third-degree heart block, status post Micra AV device 02/08/24 Mild CAD Hyperlipidemia, treated COPD on home oxygen at night and PRN GERD, suspected stress gastritis Previous tobacco dependence, quit > 1 month ago, [id number] history Occasional marijuana use Chronic narcotic dependence Recommendation: Continue present supportive care measures Continue bronchodilators Continue GI DVT prophylaxis Continue IV fluid at KVO Continue Lasix and Aldactone Discharge planning to rehab facility is in progress. Will continue to follow in the meantime Time with Patient: Less than 30
[2024-02-29] MEDS: traMADol 50 MG TAB PO SCH (23:11)
[2024-03-01 00:16] LABS: Glucose,Whole Blood 80 mg/dL (70-110)
--- NOTE | 2024-03-01 02:08 | PN ---
PROGRESS NOTE SUBJECTIVE: Discussed with her pain medication may be switched to tramadol and get her off [place]. Talked to her and her daughter about possible addiction issues if there is reason for her to take pain pills. She has severe degenerative disk disease, hip fracture. She needs lumbar spinal surgery among other things. She is stable medically. Her sugar is 90s to 100s. OBJECTIVE: PSYCH: Appears happy and tearful. LUNGS: Transmitted upper sounds. CARDIOVASCULAR: S1, S2. Negative Homans. VITAL SIGNS: Temp 97.5, respiratory rate 16 to 18, pulse 70s to 80s, blood pressure 125/59, 94% on room air. ABDOMEN: Soft, nontender. HEMATOLOGY: Negative Homans. PLAN: Continue her on current breathing treatments, oxygen at night PT OT, switch her to tramadol 100 t.i.d. Go to rehab next day or 2. Prognosis guarded. Please see further orders. MMODL / IJN: [id number] /
[2024-03-01 06:06] LABS: Glucose,Whole Blood 98 mg/dL (70-110)
[2024-03-01 07:38] LABS: Methylmalonic Acid 0.38 umol/L (<0.40)
[2024-03-01 07:51] LABS: Anisocytosis Slight; Basophils % (A) 0 %; Eosinophils # (A) 0.1 k/uL (0-0.7); Eosinophils % (A) 1 %; HCT 30.4 % (34.0-46.0); HGB 9.3 gm/dL (11.4-16.0); Hypochromasia Marked; Lymphocytes # (A) 0.7 k/uL (1.0-4.8); Lymphocytes % (A) 9 %; MCHC 30.7 g/dL (31.0-37.0); Macrocytosis Slight; Mean Platelet Volume 7.2; Monocytes # (A) 0.5 k/uL (0-1.0); Monocytes % (A) 6 %; Neutrophils # (A) 6.9 k/uL (1.3-7.7); Neutrophils % (A) 83 %; Platelet Count 623 k/uL (150-450); RDW 17.1 % (11.5-15.5); WBC 8.4 k/uL (3.8-10.6)
[2024-03-01 08:08] LABS: ALT 24 U/L (4-34); AST 35 U/L (14-36); African American GFR (CKD) >90 (>60 ml/min/1.73 sqM); Albumin 3.2 g/dL (3.5-5.0); Alkaline Phosphatase 112 U/L (38-126); Blood Urea Nitrogen 7 mg/dL (7-17); Calcium 8.9 mg/dL (8.4-10.2); Chloride 93 mmol/L (98-107); Glucose 102 mg/dL (74-99); Non-African American GFR(CKD) >90 (>60 ml/min/1.73 sqM); Potassium 3.7 mmol/L (3.5-5.1); Sodium 137 mmol/L (137-145); Total Bilirubin 0.8 mg/dL (0.2-1.3); Total Protein 5.4 g/dL (6.3-8.2)
[2024-03-01 08:15] LABS: Anion Gap 8 mmol/L
[2024-03-01 08:52] LABS: Carbon Dioxide 36 mmol/L (22-30)
[2024-03-01 11:11] LABS: Glucose,Whole Blood 87 mg/dL (70-110)
--- NOTE | 2024-03-01 12:42 | P.PN ---
Subjective HISTORY OF PRESENT ILLNESS: This is a 68-year-old female with a past medical history significant for valvular heart disease with recent mitral valve replacement and tricuspid valve repair, COPD on home oxygen, third-degree heart block with Micra device, mild CAD, and hyperlipidemia. Patient follows in the office with Dr. Ordaz. We have been asked to see the patient in consultation for right hip fracture with recent open heart surgery. Patient examined at the bedside in the emergency room. Patient was admitted to the hospital earlier this month and underwent bioprosthetic mitral valve replacement and tricuspid valve repair on 02/05/2024. The patient also developed complete heart block and underwent Micra device on 02/08/2024. The patient was discharged to [facility] in stable condition. She states that she completed rehab and has been at home recovering for the past week. She states that she lives alone and has been getting around her house well. She states that she was wearing a pair of slippers which caused her to lose her balance and fall. She denies losing consciousness. She denied having any chest pain or shortness of breath. The patient was found to have a right hip fracture and is scheduled to undergo surgical intervention this afternoon with orthopedics. DIAGNOSTICS: - EKG reveals paced rhythm. - Chest xray small bilateral pleural effusions with mild right lower lobe infiltrate. Correlate for atelectasis. - Laboratory data: WBC 6.2. Hemoglobin 8.1. Platelet count 306. Sodium 136. Potassium 3.2. BUN 13. Creatinine 0.60. - Current home cardiac medications include aspirin 325 mg daily, Lipitor 40 mg at night, losartan 12.5 mg daily, Lasix 40 mg daily, Plavix 75 mg daily - Limited echo completed on 02/10/2024 revealed minimal pericardial effusion - ENRIQUE performed in December 2023 EF 55 to 60%, severe MR, moderate to severe TR, moderate AI, severe pulmonary hypertension - Cardiac catheterization history: December 2023 with no significant CAD February 24: The patient is sedated, she was agitated earlier. She is off IV heparin. Hemodynamically she is stable. There is no evidence of malignant arrhythmia. She is undergoing an EEG. Her urinary output has been stable. There is no episodes of hypotension. February 25: The patient is awake, alert in sinus mechanism. She denies any chest discomfort, dizziness or palpitations. She has discomfort at the hip at the site of surgery. She denies any dizziness or palpitations. She is on nasal cannula. Her urinary output is stable. She denies any nausea or vomiting. Her echocardiogram showed an ejection fraction of 35 to 40% with moderate severe aortic regurgitation and mild tricuspid regurgitation. Her systolic function preoperatively was reported to be normal February 26: The patient is feeling well this morning, she is hemodynamically stable in sinus mechanism. She has no chest discomfort, dizziness or palpitations. She denies any nausea or vomiting. Hemodynamically she is stable. She is awake and alert and the confusion resolved. 02/28/2024 Patient examined this morning at the bedside. Patient currently denies chest pain or pressure. She denies shortness of breath. She is maintaining sinus mechanism. Vital signs are stable. Blood pressure 104/62. She states that she has not been out of bed yet this morning. 03/01/2024 Patient examined this morning at the bedside. Patient currently denies chest pain or pressure. She denies shortness of breath. Vital signs are stable. PHYSICAL EXAM: VITAL SIGNS: Reviewed. GENERAL: Well-developed in no acute distress. HEENT: Head is normocephalic. Pupils are equal, round. Sclerae anicteric. Mucous membranes of the mouth are moist. Neck supple. No JVD or thyromegaly LUNGS: Respirations even and unlabored. Lungs clear to auscultation. HEART: Regular rate and rhythm. S1 and S2 heard. Systolic murmur noted. ABDOMEN: Soft. Nondistended. Nontender. EXTREMITIES: Normal range of motion. No clubbing or cyanosis. Peripheral pulses intact. No lower extremity edema NEUROLOGIC: Awake and alert. Oriented x 3. ASSESSMENT: Right hip fracture status post mechanical fall, status post surgical intervention Acute hypoxic respiratory failure requiring BiPAP, likely related to narcotics, resolved Valvular heart disease, status post bioprosthetic mitral valve replacement and tricuspid valve repair, 02/05/2024 Complete heart block status post Micra device, 02/08/2024 Anemia COPD on home oxygen Severe pulmonary hypertension Hyperlipidemia Former nicotine dependence Postoperative cardiomyopathy, etiology unclear PLAN: Continue current cardiac medications Continue telemetry monitoring Increase activity as tolerated Limited echo pending Patient is stable for discharge from a cardiac standpoint Further recommendations pending patient course Nurse practitioner note has been reviewed by physician. Signing provider agrees with the documented findings, assessment, and plan of care documented by RN CLINICAL APPEALS as a scribe. Objective - Vital Signs Vital signs: Vital Signs Temp 98.2 F 03/01/24 04:00 Pulse 89 03/01/24 04:00 Resp 18 03/01/24 04:00 BP 121/56 03/01/24 04:00 Pulse Ox 100 03/01/24 04:00 FiO2 40 02/25/24 20:00 Intake & Output 02/29/24 03/01/24 03/01/24 18:59 06:59 18:59 Weight 55.9 kg 56.5 kg Other: Voiding Method Indwelling Catheter # Voids 1 1 # Bowel Movements 1 - Labs CBC & Chem 7: 03/01/24 07:16 03/01/24 07:16 Labs: Abnormal Lab Results - Last 24 Hours (Table) 02/27/24 02/27/24 03/01/24 Range/Units 05:42 05:42 07:16 RBC 3.10 L (3.80-5.40) m/uL Hgb 9.3 L (11.4-16.0) gm/dL Hct 30.4 L (34.0-46.0) % MCHC 30.7 L (31.0-37.0) g/dL RDW 17.1 H (11.5-15.5) % Plt Count 623 H (150-450) k/uL Lymphocytes # 0.7 L (1.0-4.8) k/uL Albumin (PEP) 2.66 L (3.80-4.90) g/dL [id number] 0.59 H (0.10-0.40) g/dL Gamma Globulins 0.28 L (0.70-1.50) g/dL RBC Folate 1,092 H (280 - 791) ng/mL
--- NOTE | 2024-03-01 13:39 | P.PN ---
Subjective Progress Note Date: 03/01/24 Principal diagnosis: anemia In f/u today pt is in good spirits, she has no c/o on a 10 point ROS, denies any bleeding, her rt hip/leg is sore post op but, she is eager for rehab. Objective - Vital Signs Vital signs: Vital Signs Temp 97.5 F L 03/01/24 09:34 Pulse 87 03/01/24 12:18 Resp 18 03/01/24 12:18 BP 101/63 03/01/24 12:18 Pulse Ox 98 03/01/24 12:18 FiO2 40 02/25/24 20:00 Intake & Output 02/29/24 03/01/24 03/01/24 18:59 06:59 18:59 Intake Total 180 Balance 180 Weight 55.9 kg 56.5 kg Intake: Oral 180 Other: Voiding Method Indwelling Catheter Indwelling Catheter # Voids 1 1 1 # Bowel Movements 1 - Constitutional General appearance: Present: average body habitus, cooperative, no acute distress - EENT Eyes: Present: anicteric sclerae, EOMI ENT: Present: hearing grossly normal - Respiratory Details: resp even and unlabored at rest - Cardiovascular Details: skin warm, well perfused - Peripheral edema leg Peripheral Edema: bilateral: None - Integumentary Integumentary: Present: normal - Neurologic Neurologic: Present: CNII-XII intact - Musculoskeletal Musculoskeletal Comment(s): RLE weak/discomfort with use post op - Psychiatric Psychiatric: Present: A&O x's 3, appropriate affect, intact judgment & insight - Labs CBC & Chem 7: 03/01/24 07:16 03/01/24 07:16 Labs: Abnormal Lab Results - Last 24 Hours (Table) 02/27/24 03/01/24 03/01/24 Range/Units 05:42 07:16 07:16 RBC 3.10 L (3.80-5.40) m/uL Hgb 9.3 L (11.4-16.0) gm/dL Hct 30.4 L (34.0-46.0) % MCHC 30.7 L (31.0-37.0) g/dL RDW 17.1 H (11.5-15.5) % Plt Count 623 H (150-450) k/uL Lymphocytes # 0.7 L (1.0-4.8) k/uL Chloride 93 L (98-107) mmol/L Carbon Dioxide 36 H (22-30) mmol/L Glucose 102 H (74-99) mg/dL Total Protein 5.4 L (6.3-8.2) g/dL Albumin 3.2 L (3.5-5.0) g/dL Albumin (PEP) 2.66 L (3.80-4.90) g/dL [id number] 0.59 H (0.10-0.40) g/dL Gamma Globulins 0.28 L (0.70-1.50) g/dL Assessment and Plan (1) Anemia Current Visit: Yes Status: Acute Priority: Medium Code(s): D64.9 - ANEMIA, UNSPECIFIED SNOMED Code(s): 378158081 Plan: Anemia -New onset, since cardiac surgery and now hip surgery. -Anemia work up consistent with anemia of inflammation, no monoclonal gammopathy or hemolysis. -Hgb has remained stable with slight improvment since admit, no transfusions have been given. Suspect Hgb improvement should occur spontaneously over time as she has multiple recent stressors-surgical blood loss, dilution, dual antiplatelet therapy. -Continue to monitor and transfuse to keep hemoglobin >7 attests: I have seen and examined pt, performed H&P, developed impression and plan of care. Discussed with dictator. Agree with documentation, dictated as a scribe.
--- NOTE | 2024-03-01 15:22 | P.PN ---
Subjective Progress Note Date: 03/01/24 Principal diagnosis: Right hip fracture secondary to mechanical fall This is a 68-year-old female patient who became acutely short of breath. The patient was on 2 L of oxygen by nasal cannula. She became restless, agitated, and thrashing and at the same time she was noted to have labored breathing. At that point, the patient got transferred to the intensive care unit. Chest x-ray was consistent with CHF and the patient was given Lasix with some urine output. She remained in a normal sinus rhythm. She did not require any pressors. Overnight, the patient continued to have increased agitation and restlessness and narcotic withdrawal was suspected. The patient was given Dilaudid. The patient was also placed on Precedex and this morning the patient is on Precedex which is running at 1.4 mcg/kg/min. She seems to be much more calm and comfortable. She is still arousable upon stimulation. While on the BiPAP therapy, the patient has been maintained on a pressure of 14/6 with an FiO2 of 60%. Unable to obtain an adequate pulse ox. Based on that, blood gas was done and the patient was found to have a pH of 7.43 with a pCO2 of 42 and pO2 of 254 on above-mentioned BiPAP settings. Repeat chest x-ray from today is essentially unchanged and is consistent with cardiomegaly and mild pulm vas congestion. The patient remains on IV Lasix. I was concerned of a pulmonary embolism as the patient underwent a recent hip surgery for a hip fracture. I started the p atient IV heparin pending further workup. The white cell count is at 5.6 with a hemoglobin 7.8 platelet count of 336. BUN is 12 with a creatinine of 0.55 resolved levels at 136. Noted the patient is status post mitral valve replacement and stress His valve repair that was done on 02/05/2024. She has CHF with preserved LV function and severe pulmonary hypertension. Postop, the patient encountered the third-degree AV block and the patient required a Micra AV device that was inserted on 02/08/2024. She has mild coronary artery disease. She has hyperlipidemia and COPD and she is on home O2. She also has history of acid reflux and gastritis. During this current admission, the patient had a n ondisplaced right fibular fracture due to a fall and the patient underwent a ORIF of the right femoral neck fracture and the patient is currently postop day #1. Surgical wound site is dry clean and intact. No focal neurological deficit. Daughter is at the bedside. 02/25/2024, the patient is doing much better compared to yesterday. The patient is on Precedex which is running at 0.5 mcg/kg/min this being gradually weaned off. No significant agitation. She is awake and alert and communicating. No focal neurological deficits. CAT scan of the brain was done yesterday and showed no acute abnormalities. The patient was also taken off the BiPAP and the patient is currently on oxygen and 3 L with a pulse ox of 99 to 100%. Chest x- ray showed some mild pulmonary vascular congestion. Otherwise, no other acute abnormalities has been noted. Small right-sided pleural effusion was also note d. The patient's hemodynamics is stable. White cell count is 4.3, he was 7.5 with a platelet count of 305. BUN is 13 with a creatinine of 0.55 and a sodium levels at 138 with a potassium level of 3.8. Cardiac rhythm is sinus. No other significant events overnight. IV fluids are running at a rate of 75 cc an hour. The patient also is on IV Lasix. On 02/26/2024, the patient is calm and comfortable. The patient is awake. He has no specific complaints. The patient has been taken off the Precedex. The patient denies having any significant respiratory distress. She is currently on 3 L of oxygen by nasal cannula with a pulse ox of 99%. No chest pain. No cough or sputum production. No other significant events overnight. Her hemoglobin is down to 7 and a white cell count is at 5. Platelet count is 43. Rest of the electrolytes are all within normal limits. The patient has no focal neurological deficits. Repeat chest x-ray was done today and the patient continues to have some cardiomegaly and pulm vasculature is within normal limits. Some mild scattered infiltrates in lung base bilaterally. The patient has no issues with pain. No agitation. Her delirium is completely subsided. Pain is under good control. Echocardiogram was noted and the patient was found to have an ejection fraction of 35 to 40% and the patient has moderate to severe aortic regurgitation and mitral replacement valve with trace mitral regurgitation. On 02/27/2024, the patient is doing well with no specific complaints. Awake and alert. Communicating. No altered mentation. No significant respiratory distress. She remains on DuoNeb nebulized treatments [id number]. She is also on oxygen which is currently running at 3 L/min nasal cannula. Pulse ox is noted of 93%. The patient's white cell count is 5.4 with a hemoglobin of 8 and platelet count of 450. Serum iron level is at 20 consistent with iron deficiency. The patient's hemoglobin is currently at 8.0. Surgical wound site over the right hip area is dry clean intact. The patient remains on Lovenox for DVT prophylaxis. Rest of the medications unchanged. The patient is on Lasix 40 mg p.o. daily. No other significant events overnight. 02/28/2024, patient is transferred out of the intensive care unit. Doing well with no specific complaints. No chest pain. No altered mentation. No significant shortness of breath. She is feeling weak and debilitated and the patient would benefit from rehabilitation. Otherwise, no other significant events overnight. She is currently on 2 L of oxygen by nasal cannula with a pulse ox of 95%. Sodium is at 137, bicarb 35, BUN is 11 with a creatinine of 0.5. The patient DuoNeb nebulized treatments [id number]. The patient is on Cope for pain control. She is on metoprolol 25 mg twice a day, Lasix 40 mg p.o. daily and Aldactone 25 mg p.o. daily. She remains on aspirin. She is on Lovenox 40 mg subcu for DVT prophylaxis. Patient was seen today on 02/29/24, patient is sitting at the bedside chair, does not seem to be in any distress, patient is status postsurgical repair of right hip fracture status post mechanical fall, patient is familiar to my service from her last admission for her mitral valve replacement and tricuspid valve repair on 02/05/2024. Pulmonary clifford the patient is doing great, no cough no wheezing no shortness of breath and she is on room air Patient was today on 03/01/2024, patient is doing well, asymptomatic, sitting at the bedside chair, not in any distress on room air, patient is waiting for authorization for placement. Will need to eventually go back to rehab.WBC count is 8.4 hemoglobin 9.3 basic metabolic profile is normal bicarb is 36 renal profile is normal. Patient seems to be eager to go to rehab. Objective - Vital Signs Vital signs: Vital Signs Temp 97.5 F L 03/01/24 09:34 Pulse 87 03/01/24 12:18 Resp 18 03/01/24 12:18 BP 101/63 03/01/24 12:18 Pulse Ox 98 03/01/24 12:18 FiO2 40 02/25/24 20:00 Intake & Output 02/29/24 03/01/24 03/01/24 18:59 06:59 18:59 Intake Total 360 Balance 360 Weight 55.9 kg 56.5 kg Intake: Oral 360 Other: Voiding Method Indwelling Catheter Indwelling Catheter # Voids 1 1 1 # Bowel Movements 1 - Exam GENERAL: Reveals 68-year-old female in no distress, on room air HEENT: Head is normocephalic. Pupils are equal, round. Sclerae anicteric. Mucous membranes of the mouth are moist. Neck supple. No JVD or thyromegaly LUNGS: Symmetrical chest expansion clear bilaterally no crackles rhonchi or wheezes HEART: Regular rate and rhythm. S1 and S2 heard. Systolic murmur noted. ABDOMEN: Soft. Nondistended. Nontender. EXTREMITIES: Normal range of motion. No clubbing or cyanosis. Peripheral pulses intact. No lower extremity edema NEUROLOGIC: Awake and alert. Oriented x 3. No gross focal neurologic deficit Psychiatric: Normal mood affect and normal mental status examination. Skin: No rash - Labs CBC & Chem 7: 03/01/24 07:16 03/01/24 07:16 Labs: Abnormal Lab Results - Last 24 Hours (Table) 02/27/24 03/01/24 03/01/24 Range/Units 05:42 07:16 07:16 RBC 3.10 L (3.80-5.40) m/uL Hgb 9.3 L (11.4-16.0) gm/dL Hct 30.4 L (34.0-46.0) % MCHC 30.7 L (31.0-37.0) g/dL RDW 17.1 H (11.5-15.5) % Plt Count 623 H (150-450) k/uL Lymphocytes # 0.7 L (1.0-4.8) k/uL Chloride 93 L (98-107) mmol/L Carbon Dioxide 36 H (22-30) mmol/L Glucose 102 H (74-99) mg/dL Total Protein 5.4 L (6.3-8.2) g/dL Albumin 3.2 L (3.5-5.0) g/dL Albumin (PEP) 2.66 L (3.80-4.90) g/dL [id number]-Mqmnmuqmf 0.59 H (0.10-0.40) g/dL Gamma Globulins 0.28 L (0.70-1.50) g/dL Assessment and Plan Assessment: Impression: Right rib fractures secondary to mechanical fall status postn situ screw fixation right femoral neck fracture by Dr. Mendoza, the patient is postop day #7 Acute change in mental status with significant psychosis and possibly drug withdrawal from narcotics, recovered and the patient's mentation is back to no rmal Pain secondary to above, the patient has chronic back pain dependent on Cope on outpatient basis. Anemia, expected as part of recovery after open heart surgery History of severe mitral regurgitation, moderate to severe tricuspid regurgitation per ENRIQUE, status post mitral valve replacement, tricuspid valve repair 02/05/24 Severe pulmonary hypertension Chronic heart failure with preserved left ventricular systolic function, EF 35% and the patient has evidence of moderate aortic regurgitation with trace mitral regurgitation and this is a postop echocardiogram that was done On 02/24/2024. As mentioned, the patient ejection fraction is in the order of 35 to 40%. The patient has moderate to severe aortic regurgitation and trace mitral regurgitation. Third-degree heart block, status post Micra AV device 02/08/24 Mild CAD Hyperlipidemia, treated COPD on home oxygen at night and PRN GERD, suspected stress gastritis Previous tobacco dependence, quit > 1 month ago, [id number] history Occasional marijuana use Chronic narcotic dependence Recommendation: Agree with discharge planning once bed is available in rehab. Continue present supportive care measures Continue bronchodilators Continue GI DVT prophylaxis Continue IV fluid at KVO Continue Lasix and Aldactone Will continue to follow in the meantime Time with Patient: Less than 30
[2024-03-01 17:42] LABS: Glucose,Whole Blood 101 mg/dL (70-110)
[2024-03-01] MEDS: POTASSIUM CHLORIDE ER 20 MEQ TAB.ER PO STA (21:09)
--- NOTE | 2024-03-01 21:47 | PN ---
PROGRESS NOTE SUBJECTIVE: A 68-year-old white female. OBJECTIVE: VITAL SIGNS: Temperature 97.5, pulse 87, respiratory rate 16 to 18, blood pressure 101/63, 98% on 2 L. CARDIOVASCULAR: S1, S2. LUNGS: Clear. GI: Soft. HEMATOLOGY: Negative Homans. PSYCH: Fair mood and affect. She is supposed to be going to rehab soon since she is approved. Her CO2 is 36. Her hemoglobin is 9.3. Continues on current treatment. Appears to be doing better. The fracture appears to be doing better with PT, OT. Possibly get her set up for discharge home soon. Go to the rehab center. She is awaiting authorization for present. Continue to go back to rehab. At this time, waiting for approval from insurance. Discussed with the daughter the patient pain control. Prognosis guarded. MMROSE / DEVON: [id number] /
[2024-03-02 00:14] LABS: Glucose,Whole Blood 76 mg/dL (70-110)
[2024-03-02 06:08] LABS: Glucose,Whole Blood 70 mg/dL (70-110)
[2024-03-02 11:36] LABS: Glucose,Whole Blood 69 mg/dL (70-110)
--- NOTE | 2024-03-02 13:29 | P.PN ---
Subjective Progress Note Date: 03/02/24 Principal diagnosis: Right hip fracture secondary to mechanical fall This is a 68-year-old female patient who became acutely short of breath. The patient was on 2 L of oxygen by nasal cannula. She became restless, agitated, and thrashing and at the same time she was noted to have labored breathing. At that point, the patient got transferred to the intensive care unit. Chest x-ray was consistent with CHF and the patient was given Lasix with some urine output. She remained in a normal sinus rhythm. She did not require any pressors. Overnight, the patient continued to have increased agitation and restlessness and narcotic withdrawal was suspected. The patient was given Dilaudid. The patient was also placed on Precedex and this morning the patient is on Precedex which is running at 1.4 mcg/kg/min. She seems to be much more calm and comfortable. She is still arousable upon stimulation. While on the BiPAP therapy, the patient has been maintained on a pressure of 14/6 with an FiO2 of 60%. Unable to obtain an adequate pulse ox. Based on that, blood gas was done and the patient was found to have a pH of 7.43 with a pCO2 of 42 and pO2 of 254 on above-mentioned BiPAP settings. Repeat chest x-ray from today is essentially unchanged and is consistent with cardiomegaly and mild pulm vas congestion. The patient remains on IV Lasix. I was concerned of a pulmonary embolism as the patient underwent a recent hip surgery for a hip fracture. I started the p atient IV heparin pending further workup. The white cell count is at 5.6 with a hemoglobin 7.8 platelet count of 336. BUN is 12 with a creatinine of 0.55 resolved levels at 136. Noted the patient is status post mitral valve replacement and stress His valve repair that was done on 02/05/2024. She has CHF with preserved LV function and severe pulmonary hypertension. Postop, the patient encountered the third-degree AV block and the patient required a Micra AV device that was inserted on 02/08/2024. She has mild coronary artery disease. She has hyperlipidemia and COPD and she is on home O2. She also has history of acid reflux and gastritis. During this current admission, the patient had a n ondisplaced right fibular fracture due to a fall and the patient underwent a ORIF of the right femoral neck fracture and the patient is currently postop day #1. Surgical wound site is dry clean and intact. No focal neurological deficit. Daughter is at the bedside. 02/25/2024, the patient is doing much better compared to yesterday. The patient is on Precedex which is running at 0.5 mcg/kg/min this being gradually weaned off. No significant agitation. She is awake and alert and communicating. No focal neurological deficits. CAT scan of the brain was done yesterday and showed no acute abnormalities. The patient was also taken off the BiPAP and the patient is currently on oxygen and 3 L with a pulse ox of 99 to 100%. Chest x- ray showed some mild pulmonary vascular congestion. Otherwise, no other acute abnormalities has been noted. Small right-sided pleural effusion was also note d. The patient's hemodynamics is stable. White cell count is 4.3, he was 7.5 with a platelet count of 305. BUN is 13 with a creatinine of 0.55 and a sodium levels at 138 with a potassium level of 3.8. Cardiac rhythm is sinus. No other significant events overnight. IV fluids are running at a rate of 75 cc an hour. The patient also is on IV Lasix. On 02/26/2024, the patient is calm and comfortable. The patient is awake. He has no specific complaints. The patient has been taken off the Precedex. The patient denies having any significant respiratory distress. She is currently on 3 L of oxygen by nasal cannula with a pulse ox of 99%. No chest pain. No cough or sputum production. No other significant events overnight. Her hemoglobin is down to 7 and a white cell count is at 5. Platelet count is 43. Rest of the electrolytes are all within normal limits. The patient has no focal neurological deficits. Repeat chest x-ray was done today and the patient continues to have some cardiomegaly and pulm vasculature is within normal limits. Some mild scattered infiltrates in lung base bilaterally. The patient has no issues with pain. No agitation. Her delirium is completely subsided. Pain is under good control. Echocardiogram was noted and the patient was found to have an ejection fraction of 35 to 40% and the patient has moderate to severe aortic regurgitation and mitral replacement valve with trace mitral regurgitation. On 02/27/2024, the patient is doing well with no specific complaints. Awake and alert. Communicating. No altered mentation. No significant respiratory distress. She remains on DuoNeb nebulized treatments [id number]. She is also on oxygen which is currently running at 3 L/min nasal cannula. Pulse ox is noted of 93%. The patient's white cell count is 5.4 with a hemoglobin of 8 and platelet count of 450. Serum iron level is at 20 consistent with iron deficiency. The patient's hemoglobin is currently at 8.0. Surgical wound site over the right hip area is dry clean intact. The patient remains on Lovenox for DVT prophylaxis. Rest of the medications unchanged. The patient is on Lasix 40 mg p.o. daily. No other significant events overnight. 02/28/2024, patient is transferred out of the intensive care unit. Doing well with no specific complaints. No chest pain. No altered mentation. No significant shortness of breath. She is feeling weak and debilitated and the patient would benefit from rehabilitation. Otherwise, no other significant events overnight. She is currently on 2 L of oxygen by nasal cannula with a pulse ox of 95%. Sodium is at 137, bicarb 35, BUN is 11 with a creatinine of 0.5. The patient DuoNeb nebulized treatments [id number]. The patient is on Lisle for pain control. She is on metoprolol 25 mg twice a day, Lasix 40 mg p.o. daily and Aldactone 25 mg p.o. daily. She remains on aspirin. She is on Lovenox 40 mg subcu for DVT prophylaxis. Patient was seen today on 02/29/24, patient is sitting at the bedside chair, does not seem to be in any distress, patient is status postsurgical repair of right hip fracture status post mechanical fall, patient is familiar to my service from her last admission for her mitral valve replacement and tricuspid valve repair on 02/05/2024. Pulmonary clifford the patient is doing great, no cough no wheezing no shortness of breath and she is on room air Patient was today on 03/01/2024, patient is doing well, asymptomatic, sitting at the bedside chair, not in any distress on room air, patient is waiting for authorization for placement. Will need to eventually go back to rehab.WBC count is 8.4 hemoglobin 9.3 basic metabolic profile is normal bicarb is 36 renal profile is normal. Patient seems to be eager to go to rehab. Patient was seen today on 03/02/2024, doing great, no active pulmonary symptoms, patient may go to rehab today. Again no cough no wheezing no shortness of breath. Patient is on room air Objective - Vital Signs Vital signs: Vital Signs Temp 97.7 F 03/02/24 12:00 Pulse 72 03/02/24 12:00 Resp 18 03/02/24 12:00 BP 108/58 03/02/24 12:00 Pulse Ox 97 03/02/24 12:00 FiO2 40 02/25/24 20:00 Intake & Output 03/01/24 03/02/24 03/02/24 18:59 06:59 18:59 Intake Total 540 20 190 Output Total 500 Balance 540 -480 190 Weight 49.5 kg Intake: IV 20 10 Invasive Line 3 20 10 Oral 540 180 Output: Urine 500 Other: Voiding Method Indwelling Catheter Bedside Commode Bedside Commode # Voids 1 2 2 - Exam GENERAL: Reveals 68-year-old female in no distress, on room air HEENT: Head is normocephalic. Pupils are equal, round. Sclerae anicteric. Mucous membranes of the mouth are moist. Neck supple. No JVD or thyromegaly LUNGS: Symmetrical chest expansion clear bilaterally no crackles rhonchi or wheezes HEART: Regular rate and rhythm. S1 and S2 heard. Systolic murmur noted. ABDOMEN: Soft. Nondistended. Nontender. EXTREMITIES: Normal range of motion. No clubbing or cyanosis. Peripheral pulses intact. No lower extremity edema NEUROLOGIC: Awake and alert. Oriented x 3. No gross focal neurologic deficit Psychiatric: Normal mood affect and normal mental status examination. Skin: No rash - Labs CBC & Chem 7: 03/01/24 07:16 03/01/24 07:16 Labs: Abnormal Lab Results - Last 24 Hours (Table) 03/02/24 Range/Units 11:34 POC Glucose (mg/dL) 69 L (70-110) mg/dL Assessment and Plan Assessment: Impression: Right rib fractures secondary to mechanical fall status postn situ screw fixation right femoral neck fracture by Dr. Mendoza, the patient is postop day #7 Acute change in mental status with significant psychosis and possibly drug withdrawal from narcotics, recovered and the patient's mentation is back to normal Pain secondary to above, the patient has chronic back pain dependent on Lisle on outpatient basis. Anemia, expected as part of recovery after open heart surgery History of severe mitral regurgitation, moderate to severe tricuspid regurgitation per ENRIQUE, status post mitral valve replacement, tricuspid valve repair 02/05/24 Severe pulmonary hypertension Chronic heart failure with preserved left ventricular systolic function, EF 35% and the patient has evidence of moderate aortic regurgitation with trace mitral regurgitation and this is a postop echocardiogram that was done On 02/24/2024. As mentioned, the patient ejection fraction is in the order of 35 to 40%. The patient has moderate to severe aortic regurgitation and trace mitral regurgitation. Third-degree heart block, status post Micra AV device 02/08/24 Mild CAD Hyperlipidemia, treated COPD on home oxygen at night and PRN GERD, suspected stress gastritis Previous tobacco dependence, quit > 1 month ago, [id number] history Occasional marijuana use Chronic narcotic dependence Recommendation: Referral or perspective for discharge. Continue present supportive care measures Continue bronchodilators Continue GI DVT prophylaxis Continue IV fluid at KVO Continue Lasix and Aldactone Will follow as needed Time with Patient: Less than 30
--- NOTE | 2024-03-02 14:07 | P.PN ---
Subjective HISTORY OF PRESENT ILLNESS: This is a 68-year-old female with a past medical history significant for valvular heart disease with recent mitral valve replacement and tricuspid valve repair, COPD on home oxygen, third-degree heart block with Micra device, mild CAD, and hyperlipidemia. Patient follows in the office with Dr. Ordaz. We have been asked to see the patient in consultation for right hip fracture with recent open heart surgery. Patient examined at the bedside in the emergency room. Patient was admitted to the hospital earlier this month and underwent bioprosthetic mitral valve replacement and tricuspid valve repair on 02/05/2024. The patient also developed complete heart block and underwent Micra device on 02/08/2024. [facility]. She states that she completed rehab and has been at home recovering for the past week. She states that she lives alone and has been getting around her house well. She states that she was wearing a pair of slippers which caused her to lose her balance and fall. She denies losing consciousness. She denied having any chest pain or shortness of breath. The patient was found to have a right hip fracture and is scheduled to undergo surgical intervention this afternoon with orthopedics. DIAGNOSTICS: - EKG reveals paced rhythm. - Chest xray small bilateral pleural effusions with mild right lower lobe infiltrate. Correlate for atelectasis. - Laboratory data: WBC 6.2. Hemoglobin 8.1. Platelet count 306. Sodium 136. Potassium 3.2. BUN 13. Creatinine 0.60. - Current home cardiac medications include aspirin 325 mg daily, Lipitor 40 mg at night, losartan 12.5 mg daily, Lasix 40 mg daily, Plavix 75 mg daily - Limited echo completed on 02/10/2024 revealed minimal pericardial effusion - ENRIQUE performed in December 2023 EF 55 to 60%, severe MR, moderate to severe TR, moderate AI, severe pulmonary hypertension - Cardiac catheterization history: December 2023 with no significant CAD February 24: The patient is sedated, she was agitated earlier. She is off IV heparin. Hemodynamically she is stable. There is no evidence of malignant arrhythmia. She is undergoing an EEG. Her urinary output has been stable. There is no episodes of hypotension. February 25: The patient is awake, alert in sinus mechanism. She denies any chest discomfort, dizziness or palpitations. She has discomfort at the hip at the site of surgery. She denies any dizziness or palpitations. She is on nasal cannula. Her urinary output is stable. She denies any nausea or vomiting. Her echocardiogram showed an ejection fraction of 35 to 40% with moderate severe aortic regurgitation and mild tricuspid regurgitation. Her systolic function preoperatively was reported to be normal February 26: The patient is feeling well this morning, she is hemodynamically stable in sinus mechanism. She has no chest discomfort, dizziness or palpitations. She denies any nausea or vomiting. Hemodynamically she is stable. She is awake and alert and the confusion resolved. 02/28/2024 Patient examined this morning at the bedside. Patient currently denies chest pain or pressure. She denies shortness of breath. She is maintaining sinus mechanism. Vital signs are stable. Blood pressure 104/62. She states that she has not been out of bed yet this morning. 03/01/2024 Patient examined this morning at the bedside. Patient currently denies chest pain or pressure. She denies shortness of breath. Vital signs are stable. 03/02/2024 Patient examined this morning the bedside. Patient denies chest pain or pressure. She denies shortness of breath. Limited echo remains pending. PHYSICAL EXAM: VITAL SIGNS: Reviewed. GENERAL: Well-developed in no acute distress. HEENT: Head is normocephalic. Pupils are equal, round. Sclerae anicteric. Mucous membranes of the mouth are moist. Neck supple. No JVD or thyromegaly LUNGS: Respirations even and unlabored. Lungs clear to auscultation. HEART: Regular rate and rhythm. S1 and S2 heard. Systolic murmur noted. ABDOMEN: Soft. Nondistended. Nontender. EXTREMITIES: Normal range of motion. No clubbing or cyanosis. Peripheral pulses intact. No lower extremity edema NEUROLOGIC: Awake and alert. Oriented x 3. ASSESSMENT: Right hip fracture status post mechanical fall, status post surgical intervention Acute hypoxic respiratory failure requiring BiPAP, likely related to narcotics, resolved Valvular heart disease, status post bioprosthetic mitral valve replacement and tricuspid valve repair, 02/05/2024 Complete heart block status post Micra device, 02/08/2024 Anemia COPD on home oxygen Severe pulmonary hypertension Hyperlipidemia Former nicotine dependence Postoperative cardiomyopathy, etiology unclear PLAN: Continue current cardiac medications Continue telemetry monitoring Increase activity as tolerated Limited echo pending Patient is stable for discharge from a cardiac standpoint to [facility] Further recommendations pending patient course Nurse practitioner note has been reviewed by physician. Signing provider agrees with the documented findings, assessment, and plan of care documented by CORPORATE DIRECTOR TALENT ASSESSMENT as a scribe. Objective - Vital Signs Vital signs: Vital Signs Temp 97.7 F 03/02/24 12:00 Pulse 72 03/02/24 12:00 Resp 18 03/02/24 12:00 BP 108/58 03/02/24 12:00 Pulse Ox 97 03/02/24 12:00 FiO2 40 02/25/24 20:00 Intake & Output 03/01/24 03/02/24 03/02/24 18:59 06:59 18:59 Intake Total 540 20 190 Output Total 500 Balance 540 -480 190 Weight 49.5 kg Intake: IV 20 10 Invasive Line 3 20 10 Oral 540 180 Output: Urine 500 Other: Voiding Method Indwelling Catheter Bedside Commode Bedside Commode # Voids 1 2 2 - Labs CBC & Chem 7: 03/01/24 07:16 03/01/24 07:16 Labs: Abnormal Lab Results - Last 24 Hours (Table) 03/02/24 Range/Units 11:34 POC Glucose (mg/dL) 69 L (70-110) mg/dL
[2024-03-02 16:14] LABS: Glucose,Whole Blood 91 mg/dL (70-110)
[2024-03-03 00:53] LABS: Glucose,Whole Blood 75 mg/dL (70-110)
[2024-03-03 06:04] LABS: Glucose,Whole Blood 93 mg/dL (70-110)
[2024-03-03 07:49] VITALS: RESP 16; TEMP 97.6
--- NOTE | 2024-03-03 08:34 | DS ---
DISCHARGE SUMMARY DIAGNOSES: Anemia, closed hip fracture, dehydration, lumbar degenerative disk disease, radiculopathy, status post mitral valve, tricuspid valve replacement. MEDICATIONS: 1. Aldactone 25 mg daily. 2. DuoNeb q.i.d. 3. Toprol-XL 25 daily. 4. Tramadol 100 mg t.i.d. 5. Xanax 0.25 mg t.i.d. 6. Aspirin 81 mg daily. 7. Farxiga 10 mg daily. 8. Senna 2 tablets p.o. at bedtime p.r.n. for constipation. 9. Vitamin B12 of 1000 mcg daily. 10.Celexa 20 mg daily. 11.DuoNeb q.i.d. 12.Vitamin D3 of 2000 international units daily. 13.Lasix 40 mg once a day. 14.Plavix 75 mg once a day. 15.Adderall 10 mg b.i.d. 16.Pulmicort 1 mg b.i.d. 17.Wellbutrin SR 150 b.i.d. 18.Citalopram 40 mg daily. 19.Cozaar 12.5 daily. 20.Iron sulfate 325 daily. 21.Protonix 40 mg b.i.d. 22.Tums 1000 q.i.d. p.r.n. 23.Vitamin C 500 b.i.d. 24.Lipitor 40 at night. 25.Viscous lidocaine p.r.n. 26.Maalox 30 p.r.n. 27.Perforomist 20 mcg b.i.d. CONDITION: Stable. PROGNOSIS: Guarded. Ambulate as tolerated. She came back to the hospital after falling. She had a closed right hip fracture, surgery was performed by Orthopedics to her right hip. She will need to go to physical therapy to get ambulating better. She had some issues in the past with possible some drug dependence. She has switched over just to tramadol 100 t.i.d. as she has severe pain from lumbar disk disease and a recent hip fracture. She has COPD. She needs daily breathing treatments. Coronary artery disease, valvular heart disease, depression, hypertension, GERD, dyslipidemia, acute on chronic diastolic heart failure, pulmonary hypertension. Continue current treatments as mentioned above. Diet as tolerated. Ambulate with physical therapy until she is walking good with a walker until then and then send her home when she is better. Prognosis guarded. MMODL / IJN: [id number] /
[2024-03-03 10:55] VITALS: BP 100/54; PULSE 78
--- NOTE | 2024-03-03 11:25 | P.PN ---
Subjective HISTORY OF PRESENT ILLNESS: This is a 68-year-old female with a past medical history significant for valvular heart disease with recent mitral valve replacement and tricuspid valve repair, COPD on home oxygen, third-degree heart block with Micra device, mild CAD, and hyperlipidemia. Patient follows in the office with Dr. Ordaz. We have been asked to see the patient in consultation for right hip fracture with recent open heart surgery. Patient examined at the bedside in the emergency room. Patient was admitted to the hospital earlier this month and underwent bioprosthetic mitral valve replacement and tricuspid valve repair on 02/05/2024. The patient also developed complete heart block and underwent Micra device on 02/08/2024. The patient was discharged to [facility] in stable condition. She states that she completed rehab and has been at home recovering for the past week. She states that she lives alone and has been getting around her house well. She states that she was wearing a pair of slippers which caused her to lose her balance and fall. She denies losing consciousness. She denied having any chest pain or shortness of breath. The patient was found to have a right hip fracture and is scheduled to undergo surgical intervention this afternoon with orthopedics. DIAGNOSTICS: - EKG reveals paced rhythm. - Chest xray small bilateral pleural effusions with mild right lower lobe infiltrate. Correlate for atelectasis. - Laboratory data: WBC 6.2. Hemoglobin 8.1. Platelet count 306. Sodium 136. Potassium 3.2. BUN 13. Creatinine 0.60. - Current home cardiac medications include aspirin 325 mg daily, Lipitor 40 mg at night, losartan 12.5 mg daily, Lasix 40 mg daily, Plavix 75 mg daily - Limited echo completed on 02/10/2024 revealed minimal pericardial effusion - ENRIQUE performed in December 2023 EF 55 to 60%, severe MR, moderate to severe TR, moderate AI, severe pulmonary hypertension - Cardiac catheterization history: December 2023 with no significant CAD February 24: The patient is sedated, she was agitated earlier. She is off IV heparin. Hemodynamically she is stable. There is no evidence of malignant arrhythmia. She is undergoing an EEG. Her urinary output has been stable. There is no episodes of hypotension. February 25: The patient is awake, alert in sinus mechanism. She denies any chest discomfort, dizziness or palpitations. She has discomfort at the hip at the site of surgery. She denies any dizziness or palpitations. She is on nasal cannula. Her urinary output is stable. She denies any nausea or vomiting. Her echocardiogram showed an ejection fraction of 35 to 40% with moderate severe aortic regurgitation and mild tricuspid regurgitation. Her systolic function preoperatively was reported to be normal February 26: The patient is feeling well this morning, she is hemodynamically stable in sinus mechanism. She has no chest discomfort, dizziness or palpitations. She denies any nausea or vomiting. Hemodynamically she is stable. She is awake and alert and the confusion resolved. 02/28/2024 Patient examined this morning at the bedside. Patient currently denies chest pain or pressure. She denies shortness of breath. She is maintaining sinus mechanism. Vital signs are stable. Blood pressure 104/62. She states that she has not been out of bed yet this morning. 03/01/2024 Patient examined this morning at the bedside. Patient currently denies chest pain or pressure. She denies shortness of breath. Vital signs are stable. 03/02/2024 Patient examined this morning the bedside. Patient denies chest pain or pressure. She denies shortness of breath. Limited echo remains pending. 03/03/2024 Patient examined this morning at the bedside. Patient denies chest pain or pressure. She denies shortness of breath. Vital signs are stable. PHYSICAL EXAM: VITAL SIGNS: Reviewed. GENERAL: Well-developed in no acute distress. HEENT: Head is normocephalic. Pupils are equal, round. Sclerae anicteric. Mucous membranes of the mouth are moist. Neck supple. No JVD or thyromegaly LUNGS: Respirations even and unlabored. Lungs clear to auscultation. HEART: Regular rate and rhythm. S1 and S2 heard. Systolic murmur noted. ABDOMEN: Soft. Nondistended. Nontender. EXTREMITIES: Normal range of motion. No clubbing or cyanosis. Peripheral pulses intact. No lower extremity edema NEUROLOGIC: Awake and alert. Oriented x 3. ASSESSMENT: Right hip fracture status post mechanical fall, status post surgical intervention Acute hypoxic respiratory failure requiring BiPAP, likely related to narcotics, resolved Valvular heart disease, status post bioprosthetic mitral valve replacement and tricuspid valve repair, 02/05/2024 Complete heart block status post Micra device, 02/08/2024 Anemia COPD on home oxygen Severe pulmonary hypertension Hyperlipidemia Former nicotine dependence Postoperative cardiomyopathy, etiology unclear PLAN: Continue current cardiac medications Continue telemetry monitoring Increase activity as tolerated Limited echo pending. Patient does not need to wait for echo results to be discharged. Patient is stable for discharge from a cardiac standpoint to [facility] Further recommendations pending patient course Nurse practitioner note has been reviewed by physician. Signing provider agrees with the documented findings, assessment, and plan of care documented by SLIDE FORMING MACHINE TENDER as a scribe. Objective - Vital Signs Vital signs: Vital Signs Temp 97.6 F 03/03/24 07:46 Pulse 88 03/03/24 08:29 Resp 16 03/03/24 07:46 BP 105/61 03/03/24 07:46 Pulse Ox 95 03/03/24 08:18 FiO2 40 02/25/24 20:00 Intake & Output 03/02/24 03/03/24 03/03/24 18:59 06:59 18:59 Intake Total 560 20 Balance 560 20 Weight 48.5 kg Intake: IV 20 20 Invasive Line 3 20 20 Oral 540 0 Other: Voiding Method Bedside Commode Bedside Commode # Voids 1 1 # Bowel Movements 1 - Labs CBC & Chem 7: 03/01/24 07:16 03/01/24 07:16 Labs: Abnormal Lab Results - Last 24 Hours (Table) 03/02/24 Range/Units 11:34 POC Glucose (mg/dL) 69 L (70-110) mg/dL
[2024-03-03 14:28] LABS: Free Kappa Lt Chain Qnt, Serum 1.48 mg/dL (0.33-1.94); Free Lambda Lt Chain Qnt, Seru 1.43 mg/dL (0.57-2.63)
--- NOTE | 2024-03-17 22:25 | CDI ---
Documentation Clarification Form Date: 03/17/2024 10:01:23 PM From: Gissell Jacinto Phone: Admit Date: 02/21/2024 08:07:00 PM Patient Name: Rosmery Vazquez Visit Number: [id number] Discharge Date: 03/03/2024 11:30:00 AM ATTENTION: The Clinical Documentation Specialists (CDI) and [facility] Coding Staff appreciate your assistance in clarifying documentation. Please respond to the clarification below the line at the bottom and electronically sign. The CDI & [facility] Coding staff will review the response and follow-up if needed. Please note: Queries are made part of the Legal Health Record. If you have any questions, please contact the author of this message via ITS. Doctor/Provider: Raheem Mujica Your patient has the documented: Acute on chronic systolic heart failure per Progress Note 02/26 and 02/27 ACHF withpreservedleft ventricular systolic function, EF 55- 60% Consult 02/23 and ongoing Progress Notes Additional information regarding the type of CHF is requested. History/Risk Factors: 68yo F, fall w hip fracture, severe PHTN, CAD, depression, HTN, GERD, HLD, CHF (Furosemide [Lasix] 40 mg PO DAILY), narcotic dependence, former smoker, COPD, CRF on O2 Clinical Indicators: VS/Pulse OX: 02/20 92 02/21 92-96 BNP: 4290 Echo: DiagnosisMV replacement. DilatedLV with moderate to severe LVdysfunction. MV replacement, stable with a mean gradient of 3 mmHg normal function. Moderate to severe AR. Chest x ray: Theheart size is enlarged. Sternotomywires from cardiac valve surgery is evident. The pulmonary vasculature is normal. MildRLL infiltrateand/orpleural effusionis present. Minimal leftpleural effusionblunting the costophrenic angle. Treatment: Current home cardiac medications include aspirin 325 mg daily, Lipitor 40 mg at night, losartan 12.5 mg daily, Lasix 40 mg daily, Plavix 75 mg daily. Limited echo completed on 02/10/2024 revealed minimalpericardial effusion In your professional opinion, can you please clarify the type of CHF if known? [ ] Acute on Chronic Systolic Heart Failure (reduced EF) [ ] Acute on Chronic Diastolic Heart Failure (preserved EF) [ ] Acute on Chronic Heart Failure Systolic & Diastolic Heart Failure [ ] Other, please specify [ ] Unable to determine (Template Last Revised: July 2020) MTDD
--- NOTE | 2024-03-17 22:33 | CDI ---
Documentation Clarification Form Date: 03/17/2024 10:26:27 PM From: Gissell Jacinto Phone: Admit Date: 02/21/2024 08:07:00 PM Patient Name: Rosmery Vazquez Visit Number: [id number] Discharge Date: 03/03/2024 11:30:00 AM ATTENTION: The Clinical Documentation Specialists (CDI) and [facility] Coding Staff appreciate your assistance in clarifying documentation. Please respond to the clarification below the line at the bottom and electronically sign. The CDI & [facility] Coding staff will review the response and follow-up if needed. Please note: Queries are made part of the Legal Health Record. If you have any questions, please contact the author of this message via ITS. Doctor/Provider: Raheem Mujica There is documentation of pulmonary embolismper Progress Note 02/23 and ongoing Progress Notes which may lack sufficient clinical evidence/support in the medical record. Additional clarification is requested. History/Risk Factors: 68yo F, fall w hip fracture, severe PHTN, CAD, depression, HTN, GERD, HLD, CHF on Lasix, narcotic dependence, former smoker, COPD, CRF on O2 Clinical Indicators: AHRF, currently on aBiPAPwith adequate oxygenationbased on the blood gases and the patient'schest x-rayshowing a component ofCHFwithcardiomegaly,pulmonary embolismis felt to beless likelyat this point in time. Treatment: started on IV heparin Please clarify if pulmonary embolism is a valid diagnosis? [ ] Yes, pulmonary embolismis valid as evidenced by: [ ] Postop Complication [ ] No, pulmonary embolismwas ruled out [ ] Other, please specify [ ] Unable to determine (Template Last Revised: July 2020) MTDD
--- NOTE | 2024-03-18 02:40 | PN ---
PROGRESS NOTE A 68-year-old white female, acute on chronic diastolic heart failure, preserved ejection fraction, and pulmonary embolism was ruled out. MMODL / IJN: [id number] /
== END 2024-03-03 11:30 | DRG 480 ==
LOC: EC 16:52 → 4SSUR 20:07 → 3SCARD 02-22 17:15 → 2SICU 02-24 01:33 → 3SCARD 02-27 22:26
PROVIDERS: ADMIT Family Medicine; ATTEND Orthopaedic Surgery
PROC: 0QH634Z Insertion of Internal Fixation Device into Right Upper Femur, Percutaneous Approach (ICD-10-PCS; principal; 2024-02-22 10:55)
PROC: 5A09357 Assistance with Respiratory Ventilation, Less than 24 Consecutive Hours, Continuous Positive Airway Pressure (ICD-10-PCS; 2024-02-24)
DX: S72.011A Unspecified intracapsular fracture of right femur, initial encounter for closed fracture (principal); G93.41 Metabolic encephalopathy; J96.21 Acute and chronic respiratory failure with hypoxia; I50.33 Acute on chronic diastolic (congestive) heart failure; G93.1 Anoxic brain damage, not elsewhere classified; I31.39 Other pericardial effusion (noninflammatory); F05 Delirium due to known physiological condition; I42.8 Other cardiomyopathies; D62 Acute posthemorrhagic anemia; S22.41XA Multiple fractures of ribs, right side, initial encounter for closed fracture; F11.23 Opioid dependence with withdrawal; I27.23 Pulmonary hypertension due to lung diseases and hypoxia; Z78.1 Physical restraint status; I11.0 Hypertensive heart disease with heart failure; Z99.81 Dependence on supplemental oxygen; J44.9 Chronic obstructive pulmonary disease, unspecified; F19.21 Other psychoactive substance dependence, in remission; Z95.3 Presence of xenogenic heart valve; F32.A Depression, unspecified; I08.3 Combined rheumatic disorders of mitral, aortic and tricuspid valves; D63.8 Anemia in other chronic diseases classified elsewhere; R54 Age-related physical debility; G89.29 Other chronic pain; K29.60 Other gastritis without bleeding; E61.1 Iron deficiency; I25.10 Atherosclerotic heart disease of native coronary artery without angina pectoris; E78.5 Hyperlipidemia, unspecified; E86.0 Dehydration; M51.16 Intervertebral disc disorders with radiculopathy, lumbar region; K21.9 Gastro-esophageal reflux disease without esophagitis; W01.0XXA Fall on same level from slipping, tripping and stumbling without subsequent striking against object, initial encounter; Y93.01 Activity, walking, marching and hiking; Y92.009 Unspecified place in unspecified non-institutional (private) residence as the place of occurrence of the external cause; Z79.02 Long term (current) use of antithrombotics/antiplatelets; Z79.82 Long term (current) use of aspirin; Z79.899 Other long term (current) drug therapy; Z87.891 Personal history of nicotine dependence; Z79.51 Long term (current) use of inhaled steroids; Z95.0 Presence of cardiac pacemaker; Z95.1 Presence of aortocoronary bypass graft
CPT/HCPCS: 36600; 51798; 70450; 71045; 73501; 73502; 80048; 80053; 81001; 82140; 82607; 82728; 82746; 82747; 82805; 83540; 83550; 83735; 83880; 83883; 83921; 84132; 84165; 84443; 85025; 85027; 85045; 85379; 85610; 85730; 86334; 86850; 86900; 86901; 93005; 93306; 93308; 94640; 94660; 94760; 95816; 96361; 96374; 96375; 96376; 99285

== ENCOUNTER → 2024-05-10 | Outpatient (CLI) | payer MEDICARE, OTHER ==
[2024-05-10 15:58] LABS: Basophils # (A) 0.1 k/uL (0-0.2); Basophils % (A) 1 %; Eosinophils # (A) 0.3 k/uL (0-0.7); Eosinophils % (A) 3 %; HCT 33.1 % (34.0-46.0); HGB 10.1 gm/dL (11.4-16.0); Hypochromasia Marked; Lymphocytes # (A) 1.2 k/uL (1.0-4.8); Lymphocytes % (A) 12 %; MCH 27.4 pg (25.0-35.0); MCHC 30.6 g/dL (31.0-37.0); MCV 89.4 fL (80.0-100.0); Mean Platelet Volume 6.6; Monocytes # (A) 0.5 k/uL (0-1.0); Monocytes % (A) 5 %; Neutrophils # (A) 7.9 k/uL (1.3-7.7); Neutrophils % (A) 78 %; Platelet Count 391 k/uL (150-450); RDW 14.8 % (11.5-15.5); WBC 10.1 k/uL (3.8-10.6)
[2024-05-10 16:12] LABS: ALT 11 U/L (4-34); AST 20 U/L (14-36); African American GFR (CKD) 73 (>60 ml/min/1.73 sqM); Albumin 3.7 g/dL (3.5-5.0); Albumin/Globulin Ratio 1.6; Alkaline Phosphatase 97 U/L (38-126); Anion Gap 2 mmol/L; Blood Urea Nitrogen 16 mg/dL (7-17); Calcium 8.9 mg/dL (8.4-10.2); Carbon Dioxide 32 mmol/L (22-30); Chloride 102 mmol/L (98-107); Globulin 2.3 g/dL; Glucose 80 mg/dL (74-99); Magnesium 2.6 mg/dL (1.6-2.3); Non-African American GFR(CKD) 63 (>60 ml/min/1.73 sqM); Potassium 3.9 mmol/L (3.5-5.1); Sodium 136 mmol/L (137-145); Total Bilirubin 0.4 mg/dL (0.2-1.3)
[2024-05-11 04:17] LABS: Iron 34 UG/DL (50-170)
== END | disposition home or self-care (01) ==
LOC: LABWHC1 14:58
PROVIDERS: ATTEND Family Medicine
DX: B89 Unspecified parasitic disease (principal); Z79.899 Other long term (current) drug therapy
CPT/HCPCS: 36415; 80053; 83540; 83735; 85025; 87636

== ENCOUNTER → 2024-05-12 | Outpatient (CLI) | payer MEDICARE, OTHER ==
--- NOTE | 2024-05-12 13:15 | CT ---
EXAMINATION TYPE: CT chest wo con CT DLP: 431 mGycm, Automated exposure control for dose reduction was used. DATE OF EXAM: 05/12/2024 1:06 PM COMPARISON: Chest radiograph 02/26/2024 CLINICAL INDICATION:Female, 68 years old with history of R22.2 LUMP IN CHEST; PHH, MAS/LUMP TECHNIQUE: Multiple axial images were obtained through the chest without IV contrast. Lack of IV or o ral contrast limits evaluation of solid and hollow organ viscera. . Coronal and sagittal reformats re viewed. BB marker was placed at palpable abnormality. FINDINGS: LUNGS/ PLEURA: No pneumothorax. Trace right and small left pleural effusions with associated atelecta sis. No suspicious pulmonary nodule or mass. Minimal paraseptal and centrilobular emphysematous justice es. AIRWAY: Patent and unremarkable.. HEART: The heart is mildly increased in size..Left atrial appendage occlusion device. Tricuspid and m itral valve replacement. Ventricular device within the right ventricle. Trace pericardial effusion. MEDIASTINUM: No gross evidence of adenopathy. VASCULATURE: No aortic aneurysm. Mild atherosclerotic calcification of the aorta and its branches. D ilated main pulmonary artery measuring up to 3.1 cm which can be seen with pulmonary arterial hyperte nsion. MUSCULOSKELETAL: No acute osseous abnormalities. Median sternotomy wires. Mild multilevel degenerativ e disc disease. SOFT TISSUES/LYMPH NODES: Unremarkable. LOWER NECK: Subcentimeter hypodense left thyroid lobe nodule. UPPER ABDOMEN: Midline ventral wall epigastric fat-containing hernia at site of palpable marker with defect measuring 4.7 x 5.0 cm in TV by CC dimension. IMPRESSION: 1. Midline ventral wall epigastric fat-containing hernia at site of palpable marker. Defect measures 4.7 x 5.0 cm. 2. Small left and trace right pleural effusions. 3. Postsurgical changes of the heart. [facility], , 05/12/2024 1:12 PM
== END | disposition home or self-care (01) ==
LOC: RADCTMAIN 12:31
PROVIDERS: ATTEND Surgery
DX: J90 Pleural effusion, not elsewhere classified (principal); R22.2 Localized swelling, mass and lump, trunk
CPT/HCPCS: 71250

== ENCOUNTER 2024-07-04 06:55 | Day surgery (SDC) | payer MEDICARE, OTHER ==
[2024-06-29 11:20] VITALS: BMI 25.2
[~2024-07-04 06:55] MED LIST changes: +ACETAMINOPHEN TAB 500 MG TAB PO PRN; -BACITRACIN 50,000 UNIT, POLYMYXIN B 500,000 UNIT in SODIUM CHLORIDE 0.9% IRRIGATIO 1,00... IRRIGATION ONE
[2024-07-04] MEDS: IV FLUID CONTINUATION 1,000 ML IV ONE (07:50)
[2024-07-04] MEDS: LACTATED RINGERS 1,000 ML IV SCH (07:59)
[2024-07-04 08:02] LABS: Basophils % (A) 0 %; Eosinophils # (A) 0.3 k/uL (0-0.7); Eosinophils % (A) 3 %; HCT 36.5 % (34.0-46.0); HGB 11.5 gm/dL (11.4-16.0); Hypochromasia Slight; Lymphocytes # (A) 1.4 k/uL (1.0-4.8); Lymphocytes % (A) 15 %; MCH 26.7 pg (25.0-35.0); MCHC 31.4 g/dL (31.0-37.0); MCV 85.2 fL (80.0-100.0); Mean Platelet Volume 6.8; Monocytes # (A) 0.5 k/uL (0-1.0); Monocytes % (A) 6 %; Neutrophils % (A) 75 %; Platelet Count 370 k/uL (150-450); RBC 4.29 m/uL (3.80-5.40); RDW 15.4 % (11.5-15.5); WBC 9.3 k/uL (3.8-10.6)
[2024-07-04] MEDS: ONDANSETRON 4 MG/2 ML VIAL IVP ONE (08:07)
[2024-07-04] MEDS: DEXAMETHASONE SOD PHOSPHATE 4 MG/ML 1 ML VIAL IV ONE (08:08)
[2024-07-04 08:21] LABS: African American GFR (CKD) 89 (>60 ml/min/1.73 sqM); Blood Urea Nitrogen 20 mg/dL (7-17); Calcium 9.4 mg/dL (8.4-10.2); Chloride 96 mmol/L (98-107); Glucose 114 mg/dL (74-99); Non-African American GFR(CKD) 77 (>60 ml/min/1.73 sqM); Potassium 3.3 mmol/L (3.5-5.1); Sodium 136 mmol/L (137-145)
[2024-07-04 08:30] LABS: Anion Gap 8 mmol/L; Carbon Dioxide 32 mmol/L (22-30)
[2024-07-04] MEDS: HEPARIN SODIUM,PORCINE 5,000 UNIT/ML 1 ML VIAL SQ PRN (08:35)
[2024-07-04] MEDS: MIDAZOLAM 2 MG/2 ML VIAL IV ONE (08:36)
[2024-07-04] MEDS ORDERED: NEOSTIGMINE 1 MG/ML 10 ML VIAL ONE (08:50)
[2024-07-04] MEDS ORDERED: GLYCOPYRROLATE 0.2 MG/ML 2 ML VIAL ONE (08:50)
[2024-07-04] MEDS ORDERED: SUCCINYLCHOLINE CHLORIDE 200 MG/10 ML VIAL IV ONE (08:50)
[2024-07-04] MEDS ORDERED: MIDAZOLAM 2 MG/2 ML VIAL ONE (08:50)
[2024-07-04] MEDS ORDERED: LIDOCAINE 1% INJ 10MG/ML (20 ML MDV) ONE (08:50)
[2024-07-04] MEDS ORDERED: fentaNYL (PF) 50 MCG/ML 2 ML AMP ONE (08:50)
[2024-07-04] MEDS ORDERED: ETOMIDATE 2 MG/ML 10 ML VIAL ONE (08:50)
[2024-07-04] MEDS ORDERED: ROCURONIUM 10 MG/ML (5 ML VIAL) IV ONE (08:50)
[2024-07-04 10:00] VITALS: TEMP 97.9
[2024-07-04] MEDS: HYDROmorphone 0.5 MG/0.5 ML SYRINGE IVP PRN (10:02)
--- NOTE | 2024-07-04 10:16 | P.OP ---
Date of Procedure: 07/04/24 Preoperative Diagnosis: Incisional hernia Postoperative Diagnosis: Incisional hernia Procedure(s) Performed: Open repair of incisional hernia with mesh Anesthesia: CAROLYN Surgeon: Rg Bean Estimated Blood Loss (ml): 15 Pathology: none sent Condition: stable Disposition: PACU Operative Findings: 15 x 15 cm incisional hernia located epigastric area related to previous median sternotomy Description of Procedure: The patient is placed on the en operative table in the supine position. She received general endotracheal anesthesia. Her abdomen is prepped and draped you sterile fashion. The patient had a incisional hernia located epigastric incisi on just below her sternotomy scar. The skin incised midline. Then using blunt sharp/electrocautery the hernia sac was dissected free. The fascial defect measured approxi-15 x 15 cm. Relaxing incision made on the fascia on either side of the hernia and then the fascia was reapproximated using [id number] Ethibond suture. And then this was buttressed with #1 STRATAFIX suture. A 6 x 6 inch Prolene mesh was placed over top of the repair and secured with a secure strap tacker. A VIRGIL drain was placed over top of repair on the brought through a separate stab incision. The skin was closed Abels. Patient tolerated well. She was sent to recovery in stable condition.
[2024-07-04] MEDS: MIDAZOLAM 1 MG/ML 5 ML VIAL IV STA (11:14)
[2024-07-04 13:09] VITALS: RESP 16
[2024-07-04 13:20] VITALS: BP 117/83; PULSE 85
== END 2024-07-04 13:43 | disposition home or self-care (01) ==
LOC: OR 06:55
PROVIDERS: ATTEND Surgery
DX: K43.2 Incisional hernia without obstruction or gangrene (principal); I25.10 Atherosclerotic heart disease of native coronary artery without angina pectoris; J44.9 Chronic obstructive pulmonary disease, unspecified; E78.5 Hyperlipidemia, unspecified; I11.0 Hypertensive heart disease with heart failure; I50.9 Heart failure, unspecified; I27.20 Pulmonary hypertension, unspecified; F98.8 Other specified behavioral and emotional disorders with onset usually occurring in childhood and adolescence; K21.9 Gastro-esophageal reflux disease without esophagitis; M19.90 Unspecified osteoarthritis, unspecified site; F32.A Depression, unspecified; G47.30 Sleep apnea, unspecified; Z79.899 Other long term (current) drug therapy; Z79.82 Long term (current) use of aspirin; Z79.02 Long term (current) use of antithrombotics/antiplatelets; Z95.1 Presence of aortocoronary bypass graft; Z98.890 Other specified postprocedural states; Z88.1 Allergy status to other antibiotic agents; Z88.8 Allergy status to other drugs, medicaments and biological substances
CPT/HCPCS: 80048; 85025; 49595; C1781; J2250 ×2; J0330; J1644; J1100; J2710; J0690; J2405; J2003; J3010; J1171; J1596